=== PATIENT | male | born 2000 | race Caucasian/White ===

== ENCOUNTER 2022-08-30 09:43 | Emergency (ER) | payer OTHER, SELFPAY ==
[2022-08-30 09:49] VITALS: BP 118/70; PULSE 109; RESP 16; TEMP 36.4; O2SAT 99; BMI 25.1
--- NOTE | 2022-08-30 09:53 | ED.GENADUL1 ---
HPI - General Adult General Chief complaint: Neck Pain/Injury Stated complaint: JAW PAIN NECK PAIN Time Seen by Provider: 08/30/22 09:53 Source: patient Mode of arrival: walk-in Limitations: no limitations History of Present Illness HPI narrative: Patient presents to emergency department complaining of upper back and neck pain. Patient states last week he was having 4 fillings and he was sitting in a dentist chair neck and the for over an hour. Since then he has had discomfort to his upper back the low back muscles. He has taken [id number] medications without the review relief. He has applied heat without any relief. Patient denies any sore throat, difficulty swallowing. Pain is worse when he raises his arms or when he moves his neck from wuqh-ns-bona or extends or flexes his neck. He denies any paresthesias, or weakness. He states he takes gabapentin for jaw pain that is prescribed by his doctor. Patient denies any fever, chills, or cough. Denies any chest pain, shortness of breath. He denies any jaw pain or swelling, difficulty speaking, or swallowing. He is not on any antibiotics. Related Data Home Medications Medication Instructions Recorded Confirmed aripiprazole 5 mg tablet mg 08/30/22 duloxetine 30 mg capsule,delayed mg PO 08/30/22 release duloxetine 60 mg capsule,delayed mg PO 08/30/22 release gabapentin 300 mg capsule mg 08/30/22 Previous Rx's Medication Instructions Recorded cyclobenzaprine 10 mg tablet 10 mg PO TID PRN muscle spasm #10 08/30/22 tabs Allergies Allergy/AdvReac Type Severity Reaction Status Date / Time No Known Drug Allergies Allergy Verified 08/30/22 09:53 Review of Systems ROS Status of ROS 10 or more systems reviewed and unremarkable except as noted in history and below [facility] Social History Smoking status: Never smoker Exam Narrative Exam Narrative: Nurses notes and vital signs reviewed and patient is not hypoxic. General: Nontoxic, Well-appearing and in no apparent distress. Skin: Warm, dry, no pallor noted. No Rash Head: Normocephalic, atraumatic. Neck: Supple, non-tender. Eye: Pupils are equal, round and EOMI. No scleral icterus. Ears, Nose, Mouth, and Throat: TM clear, no posterior oropharynx erythema or nasal mucosal hypertrophy, uvula is mid-line Oral mucosa is moist, Trismus, no tongue elevation, no signs of dental or facial abscesses noted. Cardiovascular: Regular Rate and Rhythm without murmur, gallop or rub. Respiratory: No accessory muscle use or respiratory distress. Lungs are clear to auscultation, no wheezing, rales or rhonchi Chest Wall: no tenderness Back: No midline thoracic or lumbar vertebral tenderness. Paraspinal muscle tenderness and spasms noted to the upper thorax over the trapezius muscle. No erythema, no signs of trauma, or infection. And has full range of motion to the neck. No CVA tenderness Musculoskeletal: normal ROM, no calf or popliteal tenderness, no lower extremity edema/swelling GI: Abdomen is soft, non-distended. Normal bowel sounds. No masses appreciated. No tenderness to palpation. No rebound, guarding, or rigidity noted. Neurological: A&O x4. No cranial nerve dysfunction observed. No truncal ataxia. Moves all extremities. Sensation intact. Psychiatric: Cooperative and interactive. Normal mood and affect. Constitutional Vital Signs - 24 hr 08/30/22 09:49 Temperature 97.6 F Pulse Rate [Monitor] 109 H Respiratory Rate 16 Blood Pressure [Left Arm] 118/70 Pulse Oximetry 99 Oxygen Delivery Method Room Air Course Vital Signs Vital signs: Vital Signs Temperature 97.6 F 08/30/22 09:49 Pulse Rate 109 H 08/30/22 09:49 Respiratory Rate 16 08/30/22 09:49 Blood Pressure 118/70 08/30/22 09:49 Pulse Oximetry 99 08/30/22 09:49 Oxygen Delivery Method Room Air 08/30/22 09:49 Temperature 97.6 F 08/30/22 09:49 Pulse Rate 109 H 08/30/22 09:49 Respiratory Rate 16 08/30/22 09:49 Blood Pressure 118/70 08/30/22 09:49 Pulse Oximetry 99 08/30/22 09:49 Oxygen Delivery Method Room Air 08/30/22 09:49 Medical Decision Making MDM Narrative Medical decision making narrative: Discussed with patient givenn an injection of Norflex which he states he prefers pills. We'll give a prescription for Flexeril. He is to follow up with primary care doctor. At this time the patient is without objective evidence of an acute process requiring hospitalization or inpatient management. The patient has remained hemodynamically stable. No additional indication for emergent studies at this time. I answered all questions. Discussed discharge instructions including standard anticipatory guidance and what should prompt a return to the emergency department, including if they get worse are not getting better or develops any new or concerning symptoms. I've given them specific time frame in which to follow-up, and who to follow-up with. The patient demonstrates understanding. Patient is nontoxic and stable for discharge with outpatient follow-up. This note was created with the assistance of a speech recognition program. Although the intention is to generate documents that actually reflects the content of the visit, no guarantees can be provided that every mistake has been identified and corrected by editing. Lab Data Lab results reviewed: Yes I reviewed the patient's lab results Discharge Plan Discharge Chief Complaint: Neck Pain/Injury Clinical Impression: Muscle spasms of neck Patient Disposition: Home, Self-Care Time of Disposition Decision: 10:14 Condition: Good Mode of Transportation: Private Vehicle Prescriptions / Home Meds: New cyclobenzaprine 10 mg tablet 10 mg PO TID PRN (Reason: muscle spasm) Qty: 10 0RF No Action gabapentin 300 mg capsule aripiprazole 5 mg tablet duloxetine 30 mg capsule,delayed release(DR/EC) PO duloxetine 60 mg capsule,delayed release(DR/EC) PO Instructions: Muscle Spasm (ED) Stand Alone Forms: Portal Instructions Referrals: KENNEDY ELDER MD [Primary Care Provider] - 1 week
[2022-08-30 10:24] VITALS: BP 112/80; PULSE 98; RESP 16; TEMP 36.8; O2SAT 99
== END 2022-08-30 10:26 | disposition home or self-care (01) ==
PROVIDERS: Emergency Provider Emergency Medicine; PCP Nurse Practitioner Primary Care
DX: M62.838 Other muscle spasm (principal)
CPT/HCPCS: 99282

== ENCOUNTER 2022-09-28 09:39 | Emergency (ER) | payer OTHER, SELFPAY ==
[2022-09-28 09:43] VITALS: BP 120/60; PULSE 125; RESP 18; TEMP 36.8; O2SAT 100; BMI 24.3
--- NOTE | 2022-09-28 09:45 | ED_ITS ---
HPI - General Adult General Chief complaint: Psychiatric Symptoms Stated complaint: SUICIDAL THOUGHTS Time Seen by Provider: 09/28/22 09:45 History of Present Illness HPI narrative: Patient's this emergency department complaining of suicidal ideation. Patient states he is feeling like he wants to go buy a gun and blow his brains out. He states before he does that he will also go and shoot other people including the dentist that did his dental extraction. Does not need this dentist. He states he is sick and tired of dealing with dental pain and jaw pain. He's had this patient's ongoing for 5 years and the only thing that helps is his father's opioids and the Neurontin. he states he has not had any of the narcotics or gabapentin for the last 5 days. He has a history of depression with previous psychiatric admissions, the last one being one month ago to [address] [place] [address]. pt states he will kill himself by the time he turns 23 because he cannot deal with the pain. pt states he sees a therapist at [facility] as an outpatient. Patient states he has been taking his psychiatric medications and he is also chronic psychedelics which worked well but have not worked because he is taking antidepressants. admits to smoking marijuana. Denies any other drug use. Denies any alcohol abuse. Does not have any other somatic complaints. He denies any sore throat, throat swelling. He denies any fever, chills, or cough. He denies any upper respiratory infection symptoms. He denies any ear pain or headache. Denies any nausea, vomiting, diarrhea, constipation, abdominal pain. Denies any flank pain, hematuria, dysuria. Denies any trauma. denies Visual or auditory hallucinations. Related Data Home Medications Medication Instructions Recorded Confirmed aripiprazole 5 mg tablet 5 mg PO .at bedtime 08/30/22 09/28/22 duloxetine 60 mg capsule,delayed 60 mg PO QAM 08/30/22 09/28/22 release gabapentin 300 mg capsule 300 mg PO DAILY 08/30/22 09/28/22 lamotrigine 25 mg tablet 50 mg PO QAM 09/28/22 09/28/22 mirtazapine 7.5 mg tablet 7.5 mg PO .at night 09/28/22 09/28/22 Allergies Allergy/AdvReac Type Severity Reaction Status Date / Time No Known Drug Allergies Allergy Verified 09/28/22 09:46 Review of Systems ROS Status of ROS 10 or more systems reviewed and unremarkable except as noted in history and below [facility] Medical History (Updated 09/28/22 @ 13:26 by Gabby Orantes MD) Social History Smoking status: Never smoker Exam Narrative Exam Narrative: Nurses notes and vital signs reviewed and patient is not hypoxic. General: Nontoxic, Well-appearing and in no apparent distress. Skin: Warm, dry, no pallor noted. No Rash Head: Normocephalic, atraumatic. Neck: Supple, non-tender. Eye: Pupils are equal, round and EOMI. No scleral icterus. Ears, Nose, Mouth, and Throat: TM clear, no posterior oropharynx erythema or nasal mucosal hypertrophy, uvula is mid-line Oral mucosa is moist Cardiovascular: regular tachycardia without murmur, gallop or rub. Respiratory: No accessory muscle use or respiratory distress. Lungs are clear to auscultation, no wheezing, rales or rhonchi Chest Wall: no tenderness Back: No midline thoracic or lumbar vertebral tenderness. No CVA tenderness Musculoskeletal: normal ROM, no calf or popliteal tenderness, no lower extremity edema/swelling GI: Abdomen is soft, non-distended. Normal bowel sounds. No masses appreciated. No tenderness to palpation. No rebound, guarding, or rigidity noted. Neurological: A&O x4. No cranial nerve dysfunction observed. No truncal ataxia. Moves all extremities. Sensation intact. Psychiatric: Cooperative, edgy, Anxious, active suicide and homicide ideation with the plan. Constitutional Vital Signs, click to edit/add: Last Vital Signs Temp 98.2 F 09/28/22 14:01 Pulse 98 H 09/28/22 14:01 Resp 20 09/28/22 14:01 BP 121/66 H 09/28/22 14:01 Pulse Ox 98 09/28/22 14:01 O2 Del Method Room Air 09/28/22 14:01 Course Vital Signs Vital signs: Vital Signs Temperature 98.3 F 09/28/22 09:43 Pulse Rate 125 H 09/28/22 09:43 Respiratory Rate 18 09/28/22 09:43 Blood Pressure 120/60 H 09/28/22 09:43 Pulse Oximetry 100 09/28/22 09:43 Oxygen Delivery Method Room Air 09/28/22 09:43 Temperature 98.2 F 09/28/22 14:01 Pulse Rate 98 H 09/28/22 14:01 Respiratory Rate 20 09/28/22 14:01 Blood Pressure 121/66 H 09/28/22 14:01 Pulse Oximetry 98 09/28/22 14:01 Oxygen Delivery Method Room Air 09/28/22 14:01 Medical Decision Making MDM Narrative Medical decision making narrative: Patient will be cleared medically for psychiatric evaluation and treatment by [facility]. pt given 1 mg of Ativan by mouth since he does not like injec tions.The patient is medically clear for mental health admission. Patient will was evaluated by [facility] who has pink slip the patient and will transfer to [address] Patient was accepted by Dr. Beaulieu. Medical Records Medical records reviewed: Yes I reviewed the patient's medical records Lab Data Lab results reviewed: Yes I reviewed the patient's lab results Labs: Lab Results 09/28/22 09/28/22 Range/Units 10:10 10:38 WBC 6.0 (4.0-11.0) 10^3/uL RBC 5.54 (4.70-6.10) 10^6/uL Hgb 16.1 (14.0-18.0) g/dL Hct 47.0 (42.0-54.0) % MCV 84.8 (80.0-94.0) fL MCH 29.1 (25.9-34.0) pg MCHC 34.3 (29.9-35.2) g/dL RDW 12.7 (11.0-15.0) % Plt Count 234 (150-450) 10^3/uL MPV 10.3 (9.5-13.5) fL Neut % (Auto) 72.8 (43.0-75.0) % Lymph % (Auto) 17.8 L (20.5-60.0) % [place] % (Auto) 6.4 (1.7-12.0) % Eos % (Auto) 2.3 (0.9-7.0) % Baso % (Auto) 0.5 (0.2-2.0) % Neut # (Auto) 4.4 (1.4-6.5) 10^3/uL Lymph # (Auto) 1.1 L (1.2-3.8) 10^3/uL [place] # (Auto) 0.4 (0.3-0.8) 10^3/uL Eos # (Auto) 0.1 (0.0-0.7) 10^3/uL Baso # (Auto) 0.0 (0.0-0.1) 10^3/uL Abs Immat Gran (auto) 0.01 (0.00-0.03) 10^3/uL Imm/Tot Granulo (auto) 0.2 (0.0-0.5) % Sodium 138 (136-145) mmol/L Potassium 4.2 (3.5-5.1) mmol/L Chloride 104 (98-107) mmol/L Carbon Dioxide 28.8 (21.0-32.0) mmol/L Anion Gap 9.4 BUN 14.0 (6.4-19.3) mg/dL Creatinine 0.88 (0.70-1.30) mg/dL Est GFR ( Amer) >60 (>=60) Est GFR (Non-Af Amer) >60 (>=60) BUN/Creatinine Ratio 15.9 Glucose 107 H (74-106) mg/dL Calcium 9.3 (8.5-10.1) mg/dL Salicylates <2.8 (<=19.9) mg/dL Urine Opiates Screen Negative (NEGATIVE) Ur Buprenorphine Scrn Negative (NEGATIVE) Ur Oxycodone Screen Negative (NEGATIVE) Urine Methadone Screen Negative (NEGATIVE) Ur Propoxyphene Screen Negative (NEGATIVE) Acetaminophen <2.0 L (10.0-30.0) ug/mL Ur Barbiturates Screen Negative (NEGATIVE) U Tricyclic Antidepress Negative (NEGATIVE) Ur Phencyclidine Scrn Negative (NEGATIVE) Ur Amphetamines Screen Negative (NEGATIVE) U Methamphetamines Scrn Negative (NEGATIVE) U Benzodiazepines Scrn Negative (NEGATIVE) Urine Cocaine Screen Negative (NEGATIVE) U Cannabinoids Screen Positive A (NEGATIVE) Ethanol Quant <3 mg/dL ECG Data Attestation: I personally reviewed and interpreted this ECG as follows: Interpretation: Sinus rhythm of 82 bpm. No acute ischemic changes. Normal axis Discharge Plan Discharge Chief Complaint: Psychiatric Symptoms Clinical Impression: Suicidal ideation, Depression, Homicidal ideation Patient Disposition: [facility] Time of Disposition Decision: 13:26 Discharge Location: [facility] Discharge location: [facility] Condition: Good Mode of Transportation: Mental Health Car
--- NOTE | 2022-09-28 10:01 | PC.NURSE ---
pt states he has been dealing with pain in his jaw and neck for the past 5 years. pt states narcotics and Neurontin are the only medications that help his pain. pt states he will kill himself by the time he turns 23 because he cannot deal with the pain. pt states he sees a therapist at [facility] as an outpatient. pt also states that it is cheaper to by a pistal and shoot people and then shoot himself than it is to go to the dentist to get his teeth fixed.
--- NOTE | 2022-09-28 10:04 | ECG_ITS ---
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
[2022-09-28] MEDS: LORAZEPAM 1 MG TABLET PO (10:16)
[2022-09-28 10:20] LABS: Basophils Percent Auto 0.5 % (0.2-2.0); Eosinophils Absolute Auto 0.1 10^3/uL (0.0-0.7); Eosinophils Percent Auto 2.3 % (0.9-7.0); Hemoglobin 16.1 g/dL (14.0-18.0); Immature Granulocytes Abs Auto 0.01 10^3/uL (0.00-0.03); Immature Granulocytes Pct Auto 0.2 % (0.0-0.5); Lymphocytes Absolute Auto 1.1 10^3/uL (1.2-3.8); Lymphocytes Percent Auto 17.8 % (20.5-60.0); Mean Corpuscular HGB Conc 34.3 g/dL (29.9-35.2); Mean Corpuscular Hemoglobin 29.1 pg (25.9-34.0); Mean Corpuscular Volume 84.8 fL (80.0-94.0); Mean Platelet Volume 10.3 fL (9.5-13.5); Monocytes Absolute Auto 0.4 10^3/uL (0.3-0.8); Monocytes Percent Auto 6.4 % (1.7-12.0); Neutrophils Absolute Auto 4.4 10^3/uL (1.4-6.5); Neutrophils Percent Auto 72.8 % (43.0-75.0); Platelet Count 234 10^3/uL (150-450); Red Blood Count 5.54 10^6/uL (4.70-6.10); Red Cell Distribution Width 12.7 % (11.0-15.0)
[2022-09-28 10:30] LABS: Salicylate <2.8 mg/dL (<=19.9)
[2022-09-28 10:35] LABS: Anion Gap 9.4; BUN Creatinine Ratio 15.9; Calcium 9.3 mg/dL (8.5-10.1); Carbon Dioxide 28.8 mmol/L (21.0-32.0); Chloride 104 mmol/L (98-107); Estimated GFR (African America >60 (>=60); Estimated GFR (Non-African Ame >60 (>=60); Glucose 107 mg/dL (74-106); Potassium 4.2 mmol/L (3.5-5.1); Sodium 138 mmol/L (136-145)
[2022-09-28 11:06] LABS: Acetaminophen <2.0 ug/mL (10.0-30.0); Ethanol <3 mg/dL
[2022-09-28 11:38] VITALS: BP 126/79; PULSE 79; RESP 16; O2SAT 99
[2022-09-28 11:46] LABS: Amphetamine Screen Urine NEGATIVE (NEGATIVE); Barbiturates Screen Urine NEGATIVE (NEGATIVE); Benzodiazepines Screen Urine NEGATIVE (NEGATIVE); Buprenorphine Screen Urine NEGATIVE (NEGATIVE); Cannabinoid Screen Urine POSITIVE (NEGATIVE); Cocaine Screen Urine NEGATIVE (NEGATIVE); Methadone Screen Urine NEGATIVE (NEGATIVE); Methamphetamines Screen Urine NEGATIVE (NEGATIVE); Opiate Screen Urine NEGATIVE (NEGATIVE); Oxycodone Screen Urine NEGATIVE (NEGATIVE); Phencyclidine Screen Urine NEGATIVE (NEGATIVE); Tricyclic Antidepressant Urine NEGATIVE (NEGATIVE)
[2022-09-28 14:01] VITALS: BP 121/66; PULSE 98; RESP 20; TEMP 36.8; O2SAT 98
[2022-09-28 14:37] VITALS: BP 121/6; PULSE 85; TEMP 36.8; O2SAT 98
== END 2022-09-28 14:30 ==
PROVIDERS: Emergency Provider Emergency Medicine; PCP Nurse Practitioner Primary Care
DX: R45.851 Suicidal ideations (principal); R45.850 Homicidal ideations; F32.A Depression, unspecified; Z79.899 Other long term (current) drug therapy; F12.90 Cannabis use, unspecified, uncomplicated
CPT/HCPCS: 36415; 80048; 80179; 80307; 80320; 80329; 85025; 93005; 99285

== ENCOUNTER 2022-11-08 12:15 | Emergency (ER) | payer OTHER, SELFPAY ==
[2022-11-08 12:26] VITALS: BP 108/68; PULSE 88; RESP 14; TEMP 36.7; O2SAT 100
--- NOTE | 2022-11-08 12:39 | ED.URI1 ---
HPI - URI/Sore Throat General Chief Complaint: Upper Respiratory Infection Stated Complaint: HEADACHE/SORE THROAT/CONGESTION Time Seen by Provider: 11/08/22 12:22 Source: patient History of Present Illness HPI Narrative: patient had cough symptoms last week. No fever or chills. No GI or symptoms. He is better now and wants a return to works slip. 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 He still has an occasional cough but the nasal congestion and ear fullness have resolved. Related Data Home Medications Medication Instructions Recorded Confirmed aripiprazole 5 mg tablet 5 mg PO .at bedtime 08/30/22 09/28/22 duloxetine 60 mg capsule,delayed 60 mg PO QAM 08/30/22 09/28/22 release gabapentin 300 mg capsule 300 mg PO DAILY 08/30/22 09/28/22 lamotrigine 25 mg tablet 50 mg PO QAM 09/28/22 09/28/22 mirtazapine 7.5 mg tablet 7.5 mg PO .at night 09/28/22 09/28/22 Allergies Allergy/AdvReac Type Severity Reaction Status Date / Time No Known Drug Allergies Allergy Verified 09/28/22 09:46 [facility] Medical History (Updated 11/08/22 @ 13:12 by Lalo Naqvi) Social History Smoking status: Never smoker Exam Narrative Exam Narrative: Nurses notes and vital signs reviewed and patient is not hypoxic. afebrile General: Well-appearing and in no apparent distress. Skin: Warm, dry, no pallor noted. No rash. Head: Normocephalic, atraumatic. Neck: Supple, non-tender. no cervical lymphadenopathy. No meningismus. Eye: Pupils are equal, round and EOMI. No scleral icterus. Ears, Nose, Mouth, and Throat: TM are clear, no nasal mucosal hypertrophy. Oral mucosa is moist, no posterior oropharynx erythema, uvula is mid-line Cardiovascular: Regular Rate and Rhythm without murmur, gallop or rub. Respiratory: No accessory muscle use or respiratory distress. Lungs are clear to auscultation, no wheezing, rales or rhonchi Musculoskeletal: normal ROM Neurological: A&O x4. No cranial nerve dysfunction observed. No truncal ataxia. Moves all extremities. Sensation intact. Psychiatric: Cooperative and interactive. Normal mood and affect. Constitutional Vital Signs, click to edit/add: Last Vital Signs Temp 98.1 F 11/08/22 12:26 Pulse 88 11/08/22 12:26 Resp 14 11/08/22 12:26 BP 108/68 11/08/22 12:26 Pulse Ox 100 11/08/22 12:26 O2 Del Method Room Air 11/08/22 12:26 Course Vital Signs Vital signs: Vital Signs Temperature 98.1 F 11/08/22 12:26 Pulse Rate 88 11/08/22 12:26 Respiratory Rate 14 11/08/22 12:26 Blood Pressure 108/68 11/08/22 12:26 Pulse Oximetry 100 11/08/22 12:26 Oxygen Delivery Method Room Air 11/08/22 12:26 Temperature 98.1 F 11/08/22 12:26 Pulse Rate 88 11/08/22 12:26 Respiratory Rate 14 11/08/22 12:26 Blood Pressure 108/68 11/08/22 12:26 Pulse Oximetry 100 11/08/22 12:26 Oxygen Delivery Method Room Air 11/08/22 12:26 MDM - URI/Sore Throat MDM Narrative Medical decision making narrative: patient is minimally symptomatic. No cough during the interview or examination. I do not see any sign of bacterial infection at this time. The patient was discharged home with a work note to return tomorrow. Discharge Plan Discharge Chief Complaint: Upper Respiratory Infection Clinical Impression: Upper respiratory infection Patient Disposition: Home, Self-Care Time of Disposition Decision: 13:11 Prescriptions / Home Meds: No Action gabapentin 300 mg capsule 300 mg PO DAILY aripiprazole 5 mg tablet 5 mg PO .at bedtime duloxetine 60 mg capsule,delayed release(DR/EC) 60 mg PO QAM lamotrigine 25 mg tablet 50 mg PO QAM mirtazapine 7.5 mg tablet 7.5 mg PO .at night Instructions: Upper Respiratory Infection (ED) Stand Alone Forms: Portal Instructions Referrals: KENNEDY ELDER APRN [Primary Care Provider] - 1 week
== END 2022-11-08 13:22 | disposition home or self-care (01) ==
PROVIDERS: Emergency Provider Emergency Medicine; PCP Nurse Practitioner Primary Care
DX: J06.9 Acute upper respiratory infection, unspecified (principal); Z79.899 Other long term (current) drug therapy
CPT/HCPCS: 99282

== ENCOUNTER 2023-03-09 03:58 | Emergency (ER) | payer OTHER, SELFPAY ==
[2023-03-09 04:01] VITALS: BP 136/86; PULSE 78; RESP 16; TEMP 36.7; O2SAT 100; BMI 21.3
[2023-03-09 04:02] VITALS: PULSE 77
--- NOTE | 2023-03-09 04:03 | ECG_ITS ---
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
--- NOTE | 2023-03-09 04:04 | ED_ITS ---
HPI - Psych General Chief Complaint: Psychiatric Symptoms Stated Complaint: MENTAL STATUS Time Seen by Provider: 03/09/23 04:03 History of Present Illness HPI Narrative: patient called [address] to bring him from his home to [facility] to be admitted for psychiatric reasons - thoughts of shooting himself and shooting other people. Long history of depression and psychiatric disease, including prior thoughts of suicide. He does not take any medications - stopped taking anti-depressant in September, around the time of his last hospitalization, he told us. He denied any recent injury or illness. Denied recent alcohol or drug use. Related Data Home Medications Medication Instructions Recorded Confirmed aripiprazole 5 mg tablet 5 mg PO .at bedtime 08/30/22 03/09/23 duloxetine 60 mg capsule,delayed 60 mg PO QAM 08/30/22 03/09/23 release gabapentin 300 mg capsule 300 mg PO DAILY 08/30/22 03/09/23 lamotrigine 25 mg tablet 50 mg PO QAM 09/28/22 03/09/23 mirtazapine 7.5 mg tablet 7.5 mg PO .at night 09/28/22 03/09/23 Allergies Allergy/AdvReac Type Severity Reaction Status Date / Time No Known Drug Allergies Allergy Verified 03/09/23 04:08 [facility] Medical History (Updated 03/09/23 @ 04:09 by Lalo Naqvi) Depression ?F32.A - Depression, unspecified (ICD-10) Social History Smoking status: Current every day smoker Exam Narrative Exam Narrative: Nurses notes and vital signs reviewed and patient is not hypoxic. afebrile General: Well-appearing and in no apparent distress. Skin: Warm, dry, no pallor noted. No rash. Head: Normocephalic, atraumatic. Eye: Pupils are equal, round and EOMI. No scleral icterus. Ears, Nose, Mouth, and Throat: Oral mucosa is moist Cardiovascular: Regular Rate and Rhythm without murmur, gallop or rub. Respiratory: No accessory muscle use or respiratory distress. Lungs are clear to auscultation, no wheezing, rales or rhonchi. Musculoskeletal: normal ROM, no calf or popliteal tenderness, no lower extremity edema/swelling GI: Abdomen is soft, non-distended. Normal bowel sounds. No tenderness to palpation. No rebound, guarding, or rigidity noted. Neurological: A&O x4. No cranial nerve dysfunction observed. No truncal ataxia. Moves all extremities. Sensation intact. Psychiatric: Cooperative and interactive. Flat affect. Constitutional Vital Signs, click to edit/add: Last Vital Signs Temp 98.1 F 03/09/23 04:01 Pulse 64 03/09/23 06:30 Resp 16 03/09/23 06:30 BP 131/71 03/09/23 06:30 Pulse Ox 100 03/09/23 06:30 O2 Del Method Room Air 03/09/23 06:30 Course Vital Signs Vital signs: Vital Signs Temperature 98.1 F 03/09/23 04:01 Pulse Rate 78 03/09/23 04:01 Respiratory Rate 16 03/09/23 04:01 Blood Pressure 136/86 03/09/23 04:01 Pulse Oximetry 100 03/09/23 04:01 Oxygen Delivery Method Room Air 03/09/23 04:01 Temperature 98.1 F 03/09/23 04:01 Pulse Rate 64 03/09/23 06:30 Respiratory Rate 16 03/09/23 06:30 Blood Pressure 131/71 03/09/23 06:30 Pulse Oximetry 100 03/09/23 06:30 Oxygen Delivery Method Room Air 03/09/23 06:30 MDM - Psych MDM Narrative Medical decision making narrative: suicide precautions initiated and I completed a pink slip. Blood and urine ordered to be sent for testing for medical clearance. EKG reviewed by me - see below. The labs were normal with negative ethanol, salicylate and acetaminophen. Yao jhaveri medically cleared for psychiatric evaluation. Call placed to [facility] to discuss transfer to their facility for psychiatric admission. Paperwork faxed to them in order to get approval from the psychiatrist to admit. @[phone] we got acceptance for admission and transfer to [address] for psychiatric admission. Call placed to [facility] to arrange transportation. Lab Data Attestation: I reviewed the patient's lab results. Labs: Lab Results 03/09/23 Range/Units 04:11 WBC 7.3 (4.0-11.0) 10^3/uL RBC 5.27 (4.70-6.10) 10^6/uL Hgb 15.2 (14.0-18.0) g/dL Hct 45.6 (42.0-54.0) % MCV 86.5 (80.0-94.0) fL MCH 28.8 (25.9-34.0) pg MCHC 33.3 (29.9-35.2) g/dL RDW 12.6 (11.0-15.0) % Plt Count 218 (150-450) 10^3/uL MPV 10.6 (9.5-13.5) fL Neut % (Auto) 64.8 (43.0-75.0) % Lymph % (Auto) 25.7 (20.5-60.0) % Ellis % (Auto) 7.4 (1.7-12.0) % Eos % (Auto) 1.4 (0.9-7.0) % Baso % (Auto) 0.4 (0.2-2.0) % Neut # (Auto) 4.7 (1.4-6.5) 10^3/uL Lymph # (Auto) 1.9 (1.2-3.8) 10^3/uL Ellis # (Auto) 0.5 (0.3-0.8) 10^3/uL Eos # (Auto) 0.1 (0.0-0.7) 10^3/uL Baso # (Auto) 0.0 (0.0-0.1) 10^3/uL Abs Immat Gran (auto) 0.02 (0.00-0.03) 10^3/uL Imm/Tot Granulo (auto) 0.3 (0.0-0.5) % Sodium 139 (136-145) mmol/L Potassium 3.6 (3.5-5.1) mmol/L Chloride 102 (98-107) mmol/L Carbon Dioxide 31.4 (21.0-32.0) mmol/L Anion Gap 9.2 BUN 14.0 (7.0-18.0) mg/dL Creatinine 0.87 (0.70-1.30) mg/dL Est GFR ( Amer) >60 (>=60) Est GFR (Non-Af Amer) >60 (>=60) BUN/Creatinine Ratio 16.1 Glucose 89 (74-106) mg/dL Calcium 9.5 (8.5-10.1) mg/dL Salicylates <2.8 (<=19.9) mg/dL Urine Opiates Screen Negative (NEGATIVE) Ur Buprenorphine Scrn Negative (NEGATIVE) Ur Oxycodone Screen Negative (NEGATIVE) Urine Methadone Screen Negative (NEGATIVE) Acetaminophen <2.0 L (10.0-30.0) ug/mL Ur Barbiturates Screen Negative (NEGATIVE) U Tricyclic Antidepress Negative (NEGATIVE) Ur Phencyclidine Scrn Negative (NEGATIVE) Ur Amphetamines Screen Negative (NEGATIVE) U Methamphetamines Scrn Negative (NEGATIVE) U Benzodiazepines Scrn Negative (NEGATIVE) Urine Cocaine Screen Negative (NEGATIVE) U Cannabinoids Screen Positive A (NEGATIVE) Ethanol Quant <3 mg/dL ECG Data Attestation: I personally reviewed and interpreted this ECG as follows: Interpretation: EKG interpretation: Emergency Department physician interpretation. Normal sinus rhythm at _bpm. Normal axis, normal intervals and no ST segment elevation or depression. normal ekg. Discharge Plan Discharge Chief Complaint: Psychiatric Symptoms Clinical Impression: Suicidal ideation, Depression, Homicidal ideation Patient Disposition: [facility] Time of Disposition Decision: 05:12 Discharge Location: [place]
[2023-03-09 04:41] LABS: Basophils Percent Auto 0.4 % (0.2-2.0); Eosinophils Absolute Auto 0.1 10^3/uL (0.0-0.7); Eosinophils Percent Auto 1.4 % (0.9-7.0); Hematocrit 45.6 % (42.0-54.0); Hemoglobin 15.2 g/dL (14.0-18.0); Immature Granulocytes Abs Auto 0.02 10^3/uL (0.00-0.03); Immature Granulocytes Pct Auto 0.3 % (0.0-0.5); Lymphocytes Absolute Auto 1.9 10^3/uL (1.2-3.8); Lymphocytes Percent Auto 25.7 % (20.5-60.0); Mean Corpuscular HGB Conc 33.3 g/dL (29.9-35.2); Mean Corpuscular Hemoglobin 28.8 pg (25.9-34.0); Mean Corpuscular Volume 86.5 fL (80.0-94.0); Mean Platelet Volume 10.6 fL (9.5-13.5); Monocytes Absolute Auto 0.5 10^3/uL (0.3-0.8); Monocytes Percent Auto 7.4 % (1.7-12.0); Neutrophils Absolute Auto 4.7 10^3/uL (1.4-6.5); Neutrophils Percent Auto 64.8 % (43.0-75.0); Platelet Count 218 10^3/uL (150-450); Red Blood Count 5.27 10^6/uL (4.70-6.10); Red Cell Distribution Width 12.6 % (11.0-15.0); White Blood Count 7.3 10^3/uL (4.0-11.0)
[2023-03-09 04:48] LABS: Ethanol <3 mg/dL; Salicylate <2.8 mg/dL (<=19.9)
[2023-03-09 04:50] LABS: Acetaminophen <2.0 ug/mL (10.0-30.0)
--- NOTE | 2023-03-09 05:08 | PC.NURSE ---
1 alcira at [facility] called to admit patient under [place]. Talked to Elvira.
[2023-03-09 05:15] LABS: Amphetamine Screen Urine NEGATIVE (NEGATIVE); Barbiturates Screen Urine NEGATIVE (NEGATIVE); Benzodiazepines Screen Urine NEGATIVE (NEGATIVE); Buprenorphine Screen Urine NEGATIVE (NEGATIVE); Cannabinoid Screen Urine POSITIVE (NEGATIVE); Cocaine Screen Urine NEGATIVE (NEGATIVE); Methadone Screen Urine NEGATIVE (NEGATIVE); Methamphetamines Screen Urine NEGATIVE (NEGATIVE); Opiate Screen Urine NEGATIVE (NEGATIVE); Oxycodone Screen Urine NEGATIVE (NEGATIVE); Phencyclidine Screen Urine NEGATIVE (NEGATIVE); Tricyclic Antidepressant Urine NEGATIVE (NEGATIVE)
[2023-03-09 05:21] LABS: Anion Gap 9.2; BUN Creatinine Ratio 16.1; Calcium 9.5 mg/dL (8.5-10.1); Carbon Dioxide 31.4 mmol/L (21.0-32.0); Chloride 102 mmol/L (98-107); Estimated GFR (African America >60 (>=60); Estimated GFR (Non-African Ame >60 (>=60); Glucose 89 mg/dL (74-106); Potassium 3.6 mmol/L (3.5-5.1); Sodium 139 mmol/L (136-145)
--- NOTE | 2023-03-09 05:37 | PC.NURSE ---
Labs,Ekg and pink slip faxed to [facility].
--- NOTE | 2023-03-09 06:13 | PC.NURSE ---
[address] Still has not been able to get a hold of the will try again.
[2023-03-09 06:30] VITALS: BP 131/71; PULSE 64; RESP 16; O2SAT 100
--- NOTE | 2023-03-09 06:36 | PC.NURSE ---
Patient accepted to [address] [place] [address].
--- NOTE | 2023-03-09 06:52 | PC.NURSE ---
Report called to [facility] at [facility]. She would like to be called if any changes and when transport leaves with patient.
[2023-03-09 08:34] VITALS: BP 127/78; PULSE 89; RESP 16; O2SAT 100
== END 2023-03-09 08:36 ==
PROVIDERS: Emergency Provider Emergency Medicine; PCP Nurse Practitioner Primary Care
DX: R45.851 Suicidal ideations (principal); R45.850 Homicidal ideations; F32.A Depression, unspecified; F17.210 Nicotine dependence, cigarettes, uncomplicated; Z79.899 Other long term (current) drug therapy
CPT/HCPCS: 36415; 80048; 80179; 80307; 80320; 80329; 85025; 93005; 99285

== ENCOUNTER 2023-05-30 11:17 | Outpatient (OUT) | payer OTHER, SELFPAY ==
--- OUTSIDE RECORDS SUMMARY | 2023-05-30 11:40 | XMS_ITS | CCD ---
Author Name Unknown Address [address] [place] [address] Organization [facility] Care Team Providers Care Photo Lab Technician Name Role Phone Juan Madrigal Primary Care Physician [phone] Chu Muñoz Attending Unavailable Chu Muñoz Admitting Unavailable Unavailable Primary Care Provider Unavailying MCKEON ., JOSÉ MANUEL JAIN Consulting Unavailabl e SANTY, DR VISHUN Cervantes Admitting Unavailabl e SHAMMO, DARIN Primary Care Unavailable SANTY, DR VISHNU Cervantes Attending Unavailabl e FABIOLA, PORTER Admitting Unavailable FABIOLA, PORTER Attending Unavailable FABIOLA, PORTER Consulting Unavailable KAITLIN, DR RIVERA Primary Care Unavailable NAGI ., ANJEL Consulting Unavailable SHAMMO, DARIN Primary Care Unavailable SANTY, DR VISHNU Cervantes Attending Unavailabl e SANTY, DR VISHNU Cervantes Consulting Unavailabl e SANTY, DR VISHNU Cervantes Admitting Unavailabl e HOUSE, DR RIVERA Primary Care Unavailable SHAMMO, DARIN Admitting Unavailable SHAMMO, DARIN Attending Unavailable SHAMMO, DARIN Consulting Unavailable SHAMMO, DARIN Primary Care Unavailable ZIEBER, DR SANKET Mcgovern Consulting Unavailable SHAMMO, DARIN Admitting Unavailable SHAMMO, DARIN Attending Unavailable SHAMMO, DARIN Consulting Unavailable Vasilyeva DDS, Erum Unavailable [phone] Ashley ALVAREZ MD, Cherise Unavailable Shammo, INSULATION BOARD COATER OPERATOR-BC Darin T Primary Care Provider [phone] MD Tana Ca Admit Provider MD Tana Ca Attending Provider Shammo, INSULATION BOARD COATER OPERATOR-BC Darin T Primary Care Provider DO Christiano Phelps Emergency Provider [phone] MD Timur Shubham Admit Provider [phone] MD Mariana Dingmi Attending Provider MD Tana Ca Attending Provider Messia DDS, Erum Unavailable Rangwala DDS, Parveez Unavailable Shammo, INSULATION BOARD COATER OPERATOR- Darin T Primary Care Provider [phone] MD Mariana Dingmi Admit Provider MD Shubham Ding Attending Provider [phone] Shubham Ding Admitting Unavailable Shammo, Darin T Primary Care Unavailable Lanny, Brandon Attending Unavailab le Shammo, Darin T Primary Care Unavailable Tesfaye Cahman Attending Unavailab le Lanny, Brandon Admitting Unavailab le Shammo, Darin T Primary Care Unavailable Lanny, Brandon Attending Unavailab le Lanny, Brandon Admitting Unavailab le Timur, Shubham Attending Unavailable Timur, Shubham Admitting Unavailable Shammo, Darin T Primary Care Unavailable Timur, Shubham Attending Unavailable Timur, Shubham Admitting Unavailable Shammo, Darin T Primary Care Unavailable PROVIDER, UNKNOWN Admitting Unavailable PROVIDER, UNKNOWN Attending Unavailable PROVIDER, UNKNOWN Admitting Unavailable PROVIDER, UNKNOWN Attending Unavailable PROVIDER, UNKNOWN Admitting Unavailable PROVIDER, UNKNOWN Attending Unavailable PROVIDER, UNKNOWN Admitting Unavailable PROVIDER, UNKNOWN Attending Unavailable PROVIDER, UNKNOWN Attending Unavailable PROVIDER, UNKNOWN Admitting Unavailable PROVIDER, UNKNOWN Attending Unavailable PROVIDER, UNKNOWN Admitting Unavailable PROVIDER, UNKNOWN Attending Unavailable PROVIDER, UNKNOWN Admitting Unavailable PROVIDER, UNKNOWN Admitting Unavailable VICKIE MCCORD Attending Unavailable PROVIDER, UNKNOWN Attending Unavailable PROVIDER, UNKNOWN Admitting Unavailable PROVIDER, UNKNOWN Admitting Unavailable VI SAMUEL Referring Unavailable PROVIDER, UNKNOWN Attending Unavailable PROVIDER, UNKNOWN Attending Unavailable PROVIDER, UNKNOWN Admitting Unavailable PROVIDER, UNKNOWN Attending Unavailable PROVIDER, UNKNOWN Admitting Unavailable PROVIDER, UNKNOWN Attending Unavailable PROVIDER, UNKNOWN Admitting Unavailable PROVIDER, UNKNOWN Attending Unavailable PROVIDER, UNKNOWN Admitting Unavailable PROVIDER, UNKNOWN Admitting Unavailable PROVIDER, UNKNOWN Attending Unavailable PROVIDER, UNKNOWN Admitting Unavailable PROVIDER, UNKNOWN Attending Unavailable PROVIDER, UNKNOWN Attending Unavailable PROVIDER, UNKNOWN Admitting Unavailable Medications Current Medications Medication Drug Class(es) Dates Sig (Normalized) Sig (Original) 24 hr buPROPion hydrochloride 150 mg extended release oral tablet (1 source) Aminoketone Start: 03-13-2023 take 150 mg by mouth once daily in the morning Bupropion Hcl Active 150 MG PO Every morning March 13, 2023 12:00am chlorhexidine gluconate 1.2 mg/ml mouthwash (3 sources) Start: 10-29-2022 End: 11-28-2022 take 15 mL by mouth twice daily chlorhexidine (Peridex) 0.12 % oral solution Indications: Poor oral hygiene Take 15 mL by mouth 2 times daily. 900 mL 0 10/29/2022 Active diclofenac sodium 0.01 mg/mg topical gel (14 sources) Nonsteroidal Anti-inflammatory Drug Start: 06-14-2022 diclofenac (VOLTAREN) 1 % GEL topical gel Indications: Arthralgia of right temporomandibular joint Apply 2 g topically 2 times daily as needed. 50 g 0 06/14/2022 Active sodium fluoride 0.011 mg/mg toothpaste (11 sources) Start: 07-16-2022 Sodium Fluoride (PreviDent 5000 Booster Plus) 1.1 % PSTE 5 g by Dental route daily. 100 mL 3 07/16/2022 Active Completed/Discontinued Medications Medication Drug Class(es) Dates Sig (Normalized) Sig (Original) ARIPiprazole 10 mg oral tablet (4 sources) Atypical Antipsychotic Start: 10-02-2022 End: 03-09-2023 take 10 mg by mouth once daily at bedtime Aripiprazole Discontinued 10 MG PO Daily at bedtime October 01, 2022 11:00pm March 09, 2023 9:30am Start: 08-03-2022 End: 2022 take 5 mg by mouth once daily at bedtime Aripiprazole Discontinued 5 MG PO Daily at bedtime August 02, 2022 11:00pm 2022 7:23am baclofen 10 mg oral tablet (10 sources) gamma-Aminobutyric Acid-ergic Agonist Start: 08-03-2022 End: 07-14-2023 take 10 mg by mouth twice daily Baclofen Discontinued 10 MG PO Twice daily August 02, 2022 11:00pm September 28, 2022 3:57pm Start: 06-14-2022 End: 07-14-2022 take 1 tablet by mouth three times daily baclofen (LIORESAL) 10 MG tablet Indications: Myalgia of mastication muscle , Myalgia of muscle of neck Take 1 Tablet by mouth 3 times daily. 90 Tablet 0 06/14/2022 Active cyclobenzaprine hydrochloride 10 mg oral tablet (14 sources) Muscle Relaxant Start: 05-22-2022 End: 06-21-2022 take 10 mg by mouth at bedtime Cyclobenzaprine Discontinued 10 MG PO Bedtime June 11, 2022 11:00pm June 12, 2022 7:12pm Start: 05-03-2021 End: 05-25-2021 take 10 mg by mouth twice daily Cyclobenzaprine Discontinued 10 MG PO Twice daily May 03, 2021 12:00am May 25, 2021 7:46am DULoxetine 60 mg delayed release oral capsule (5 sources) Serotonin and Norepinephrine Reuptake Inhibitor Start: 08-05-2022 End: 2022 take 60 mg by mouth once daily Duloxetine Discontinued 60 MG PO Daily 0 August 04, 2022 11:00pm 2022 7:23am Start: 06-13-2022 End: 08-05-2022 take 30 mg by mouth once daily Duloxetine Discontinued 30 MG PO Daily June 12, 2022 11:00pm August 05, 2022 9:11am escitalopram 5 mg oral tablet (2 sources) Serotonin Reuptake Inhibitor Start: 10-02-2022 End: 03-09-2023 take 5 mg by mouth once daily Escitalopram Oxalate Discontinued 5 MG PO Daily October 01, 2022 11:00pm March 09, 2023 9:30am esomeprazole 40 mg delayed release oral capsule (3 sources) Proton Pump Inhibitor Start: 05-03-2021 End: 05-28-2021 take 1 capsule by mouth once daily Esomeprazole Magnesium (Nexium) 40 mg capsule,delayed release(DR/EC) Discontinued 40 MG PO Daily May 03, 2021 12:00am May 28, 2021 10:26am famotidine 20 mg oral tablet (3 sources) Histamine-2 Receptor Antagonist Start: 05-03-2021 End: 05-25-2021 take 1 tablet by mouth once daily Famotidine (Pepcid) 20 mg Tablet Discontinued 20 MG PO Daily May 03, 2021 12:00am May 25, 2021 7:44am gabapentin 300 mg oral capsule (20 sources) Anti-epileptic Agent Start: 06-12-2022 End: 08-03-2022 take 300 mg by mouth once daily Gabapentin Discontinued 300 MG PO Daily June 11, 2022 11:00pm August 03, 2022 11:59am Start: 02-01-2022 End: 06-12-2022 take 300 mg by mouth twice daily Gabapentin Discontinued 300 MG PO Twice daily 60 February 01, 2022 12:00am June 12, 2022 7:00pm Start: 05-10-2021 End: 01-28-2022 take 300 mg by mouth three times daily Gabapentin Discontinued 300 MG PO Three times daily 90 May 10, 2021 12:00am January 28, 2022 3:15pm hydrOXYzine pamoate 25 mg oral capsule (3 sources) Antihistamine Start: 05-03-2021 End: 05-25-2021 take 1 capsule by mouth every eight hours Hydroxyzine Pamoate (Vistaril) 25 mg Capsule Discontinued 25 MG PO Q8H May 03, 2021 12:00am May 25, 2021 7:44am ibuprofen 600 mg oral tablet (15 sources) Nonsteroidal Anti-inflammatory Drug Start: 06-05-2022 End: 08-03-2022 take 600 mg by mouth four times daily Ibuprofen Discontinued 600 MG PO Four times daily June 11, 2022 11:00pm August 03, 2022 7:56am Start: 05-22-2022 End: 06-05-2022 take 1 tablet by mouth every six hours as needed for pain ibuprofen (MOTRIN) 600 MG tablet Take 1 Tablet by mouth every 6 hours as needed for Pain. 30 Tablet 0 05/22/2022 06/05/2022 Discontinued lamoTRIgine 25 mg oral tablet (2 sources) Mood Stabilizer, Anti-epileptic Agent Start: 08-03-2022 End: 03-09-2023 take 2 tablets by mouth once daily Lamotrigine (Lamictal) 25 mg tablet Discontinued 50 MG PO Daily August 02, 2022 11:00pm March 09, 2023 9:30am methocarbamol 750 mg oral tablet (10 sources) Muscle Relaxant Start: 06-05-2022 End: 08-03-2022 take 750 mg by mouth three times daily Methocarbamol Discontinued 750 MG PO Three times daily June 11, 2022 11:00pm August 03, 2022 7:56am mirtazapine 15 mg oral tablet (7 sources) Start: 10-02-2022 End: 03-09-2023 take 15 mg by mouth once daily at bedtime Mirtazapine Discontinued 15 MG PO Daily at bedtime October 01, 2022 11:00pm March 09, 2023 9:30am Start: 08-03-2022 End: 2022 take 7.5 mg by mouth once daily at bedtime Mirtazapine Discontinued 7.5 MG PO Daily at bedtime August 02, 2022 11:00pm 2022 7:23am Start: 02-01-2022 End: 06-12-2022 take 7.5 mg by mouth once daily at bedtime Mirtazapine Discontinued 7.5 MG PO Daily at bedtime February 01, 2022 12:00am June 12, 2022 7:00pm nicotine 2 mg chewing gum (3 sources) Cholinergic Nicotinic Agonist Start: 05-10-2021 End: 05-25-2021 Nicotine (Polacrilex) Discontinued 2 MG BUCCAL Q2H May 10, 2021 12:00am May 25, 2021 7:43am ondansetron 4 mg disintegrating oral tablet (3 sources) Serotonin-3 Receptor Antagonist Start: 05-03-2021 End: 05-25-2021 take 4 mg by mouth every six hours Ondansetron Discontinued 4 MG PO Q6H May 03, 2021 12:00am May 25, 2021 7:44am penicillin v potassium 250 mg oral tablet (6 sources) Start: 05-25-2021 End: 05-28-2021 take 250 mg by mouth every six hours Penicillin V Potassium Discontinued 250 MG PO Q6H May 25, 2021 12:00am May 28, 2021 10:26am Start: 05-03-2021 End: 05-25-2021 Penicillin V Potassium Disco ntinued 250 MG PO Four times daily May 03, 2021 12:00am May 25, 2021 7:44am 3 more days promethazine hydrochloride 25 mg oral tablet (3 sources) Phenothiazine Start: 05-03-2021 End: 05-25-2021 take 25 mg by mouth every six hours Promethazine Discontinued 25 MG PO Q6H 14 May 03, 2021 12:00am May 25, 2021 7:44am QUEtiapine 50 mg oral tablet (3 sources) Atypical Antipsychotic Start: 05-28-2021 End: 01-28-2022 take 50 mg by mouth once daily at bedtime Quetiapine Discontinued 50 MG PO Daily at bedtime May 28, 2021 12:00am January 28, 2022 3:15pm sertraline 50 mg oral tablet (3 sources) Serotonin Reuptake Inhibitor Start: 05-28-2021 End: 01-28-2022 take 50 mg by mouth once daily in the morning Sertraline Discontinued 50 MG PO Every morning May 28, 2021 12:00am January 28, 2022 3:15pm sucralfate 1000 mg oral tablet (3 sources) Aluminum Complex Start: 05-03-2021 End: 05-28-2021 take 1 g by mouth at bedtime Sucralfate Discontinued 1 GM PO before meals and at bedtime May 03, 2021 12:00am May 28, 2021 10:26am traMADol hydrochloride 50 mg oral tablet (3 sources) Opioid Agonist Start: 05-10-2021 End: 05-25-2021 take 50 mg by mouth every eight hours Tramadol Discontinued 50 MG PO Q8H 5 May 10, 2021 12:00am May 25, 2021 7:45am traZODone hydrochloride 50 mg oral tablet (2 sources) Serotonin Reuptake Inhibitor Start: 2022 End: 03-09-2023 take 50 mg by mouth once daily at bedtime Trazodone Discontinued 50 MG PO Daily at bedtime October 02, 2022 11:00pm March 09, 2023 9:30am Problems Active Problems Problem Classification Problem Date Documented Da te Episodic/Chronic Abdominal pain (3 sources) Indigestion; Translations: [Epigastric pain] 05-03-2021 Episodic Mood disorders (8 sources) Major depressive disorder, single episode, unspecified; Translations: [Depressive disorder] Onset: 01-29-2022 05-08-2021 Chronic Mood disorders (1 source) Mood disorders; Translations: [Depression, unspecified] Onset: 09-28-2022 Nausea and vomiting (3 sources) Nausea; Translations: [Nausea] 05-03-2021 Episodic Other connective tissue disease (3 sources) Myofascial pain; Translations: [Myalgia, other site] Episodic Other connective tissue disease (1 source) Localized masticatory muscle soreness; Translations: [Myalgia of mastication muscle] Episodic Other connective tissue disease (1 source) Muscle pain; Translations: [Myalgia, other site] Episodic Other nervous system disorders (4 sources) Polyneuropathy, unspecified; Translations: [POLYNEUROPATHY UNSPECIFIED] Onset: 05-28-2022 Chronic Other screening for suspected conditions (not mental disorders or infectious disease) (2 sources) Encounter for observation for other suspected diseases and conditions ruled out; Translations: [Encounter for observation for other suspected diseases and conditions ruled out] Onset: 06-14-2022 Episodic Residual codes; unclassified (1 source) Poor oral hygiene; Translations: [Other specified personal risk factors, not elsewhere classified] 10-29-2022 Episodic Spondylosis; intervertebral disc disorders; other back problems (5 sources) Radiculopathy, cervical region; Translations: [RADICULOPATHY CERVICAL REGION] Onset: 06-04-2022 Episodic Substance-related disorders (1 source) Nicotine dependence, cigarettes, uncomplicated; Translations: [NICOTINE DEPEND CIGARETTES UNCOMP] Onset: 06-13-2022 Chronic Substance-related disorders (1 source) Cannabis use, unspecified, uncomplicated; Translations: [CANNABIS USE UNS UNCOMPLICATED] Onset: 06-13-2022 Episodic Unclassified (1 source) CONTACT W/AND (SUSP) EXPOS COVID-19; Translations: [CONTACT W/AND (SUSP) EXPOS COVID-19] Onset: 06-13-2022 Past or Other Problems Problem Classification Problem Date Documented Date Episodic/Chronic Disorders of teeth and jaw (11 sources) Pain of right temporomandibular joint; Translations: [Arthralgia of right temporomandibular joint] Onset: 06-04-2022 Episodic Other connective tissue disease (1 source) Myalgia of mastication muscle; Translations: [Myalgia of mastication muscle] Onset: 06-14-2022 Episodic Other connective tissue disease (1 source) Myalgia, other site; Translations: [Myalgia, other site] Onset: 05-22-2022 Episodic Other nutritional; endocrine; and metabolic disorders (4 sources) Anorexia; Translations: [ANOREXIA] Onset: 01-28-2022 Episodic Residual codes; unclassified (1 source) Other specified personal risk factors, not elsewhere classified; Translations: [Other specified personal risk factors, not elsewhere classified] Onset: 10-29-2022 Episodic Residual codes; unclassified (1 source) Body mass index (BMI) pediatric, 5th percentile to less than 85th percentile for age; Translations: [Body mass index (BMI) pediatric, 5th percentile to less than 85th percentile for age] Onset: 05-22-2022 Episodic Suicide and intentional self-inflicted injury (8 sources) Suicidal ideations; Translations: [Suicidal thoughts] Onset: 06-12-2022 Episodic Results Test Name Value Interpretation Reference Range Facility Progress Noteson 03-25-2023 Bacteriology Professor Authentication Interface Message Text ----- Saturday, March 25, 2023 at 8:30:40 AM ----- ----- Provider: Vivian Mccord Fellow -- Clinic: [place] ----- Patient messaged ([facility]) nj at 8:20 am today to cancel his appointment for TPI today at 11:20. States he is sick. Patient was last seen for injections 2 months ago on 01/21/23. He wanted to know how thick his mouthguard is - informed him it is usually about 2 mm thick. 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 He also inquired last month on [facility] for a provider closer to him for TPI. He was provided with name and number of an orofacial pain specialist. He responded stating that they don't take his insurance so he wont be able to see them. He stated he had many questions about his TMD - was informed that we can answer all of them at his appointment. Patient messages very frequently on [facility], and multiple times when he does not get a response KT. His messages are not of urgent nature or medication refills. Responded thank you for taking 2 weeks to get back to me, appreciate it when I responded after my vacation to his repeated messages about what our TPI injections consist of - local anesthetic or steroid. Normal [employer] Cholesterol [Mass/volume] in Serum or PlasmaOrdered By: Shubham Ding on 03-10-2023 Cholesterol [Mass/Vol] 117 mg/dL 140-200 [facility] Comment on above: Chol less than 200 m g/dl low riskChol 201-239 mg/dl borderline riskChol 240 mg/dl and greater high risk Cholesterol in LDL Calc [Mas s/Vol]Ordered By: Shubham Ding on 03-10-2023 Cholesterol in LDL [Mass/Vol] 64 mg/dL 0-100 [facility] Comment on above: LDL ATP III CLASSIFI CATIONLDL less than 100 mg/dL OptimalLDL 100-129 mg/dL Near or above optimalLDL 130-159 mg/dL Borderline highLDL 160-189 mg/dL HighLDL greater than 189 mg/dL Very high Cholesterol in VLDL Calc [Ma ss/Vol]Ordered By: Shubham Ding on 03-10-2023 Cholesterol in VLDL [Mass/Vol] 8 mg/dL [facility] Lipid Panelon 03-10-2023 Cholesterol [Mass/Vol] 117 mg/dL Low 140-200 [facility] Comment on above: Result Comment: Chol less than 200 mg/dl low risk Chol 201-239 mg/dl borderline risk Chol 240 mg/dl and greater high risk Performed By: #### C MP, CBC, ETOH #### [facility] [address] [id number] [place] Cholesterol in HDL [Mass/Vol] 45 mg/dL Normal 23-92 [facility] Comment on above: Result Comment: HDL CHOL ATP-III CLASSIFICATION Cardiovascular Risk HDL > or equal to 60 mg/dL LOW HDL < 40 mg/dL HIGH Performed By: #### C MP, CBC, ETOH #### [facility] [address] [place] [address] [facility] Cholesterol.total/Abi sterol in HDL [Mass ratio] 2.6 {ratio} Normal <5.0 [facility] Comment on above: Performed By: #### C MP, CBC, ETOH #### [facility] [address] LDL Cholesterol,Calculated 64 mg/dL Normal 0-100 [facility] Comment on above: Result Comment: LDL ATP III CLASSIFICATION LDL less than 100 mg/dL Optimal LDL 100-129 mg/dL Near or above optimal LDL 130-159 mg/dL Borderline high LDL 160-189 mg/dL High LDL greater than 189 mg/dL Very high Performed By: #### C MP, CBC, ETOH #### [facility] [address] Triglyceride w/Reflex 42 mg/dL Normal 0-149 [facility] Comment on above: Result Comment: TRIG ATP III CLASSIFICATION TRIG less than 150 mg/dL Normal TRIG 150-199 mg/dL Borderline high TRIG 200-500 mg/dL High TRIG greater than 500 mg/dL Very high Standard traceable to the Center for Disease Conrtrol and Prevention (CDC) test method. Performed By: #### C MP, CBC, ETOH #### [facility] [address] VLDL CHOLESTEROL 8 mg/dL Normal [facility] Comment on above: Performed By: #### C MP, CBC, ETOH #### [facility] [address] Serum or plasma high density lipoprotein (HDL) cholesterol measurementOrdered By: Shubham Ding on 03-10-2023 Cholesterol in HDL [Mass/Vol] 45 mg/dL 23- [facility] Comment on above: HDL CHOL ATP-III CLA SSIFICATION Cardiovascular RiskHDL > or equal to 60 mg/dL LOWHDL < 40 mg/dL HIGH Serum or plasma total choles terol/high density lipoprotein (HDL) cholesterol mass ratOrdered By: Shubham Ding on 03-10-2023 Cholesterol.total/Abi sterol in HDL [Mass ratio] 2.6 {ratio} <5.0 [facility] Thyroid Stim Hormone w/Rflxo n 03-10-2023 Thyroid Stim Hormone w/Rflx 0.83 u[iU]/mL Normal 0.45-5.33 [facility] Comment on above: Performed By: #### C MP, CBC, ETOH #### [facility] [address] Thyrotropin [Units/volume] i n Serum or PlasmaOrdered By: Shubham Ding on 03-10-2023 TSH Qn 0.83 m[IU]/L 0.45-5.33 [facility] Triglyceride [Mass/volume] i n Serum or PlasmaOrdered By: Shubham Ding on 03-10-2023 Triglyceride [Mass/Vol] 42 mg/dL 0-149 [facility] Comment on above: TRIG ATP III CLASSIF ICATIONTRIG less than 150 mg/dL NormalTRIG 150-199 mg/dL Borderline highTRIG 200-500 mg/dL High TRIG greater than 500 mg/dL Very highStandard traceable to the Center for Disease Conrtrol and Prevention (CDC) test method. Vitamin D 25 Hydroxy Totalon 03-10-2023 Vitamin D 25 Hydroxy Total 44.6 ng/mL Normal 30-100 [facility] Comment on above: Result Comment: GREY MIN D STATUS 25([place])VITAMIN D RANGE (ng/mL) Deficient <20 Insufficient 20 to <30 Sufficient 30 to 100 Reference: Al Napier, Yvonne RODRIGUEZ, et al. Evaluation,treatment, and prevention of vitamin D deficiency; an Endocrine Society clinical practice guideline. JCEM. 2010; 96(7):1911-30. PERFORMED BY: [place] [address] PATHOLOGIST SECURITY DIRECTOR HANNY WEAVER M.D. Performed By: #### C MP, CBC, ETOH #### [facility] [id number] [facility] Vitamin D+Metabolites [Mass/ volume] in Serum or PlasmaOrdered By: Shubham Ding on 03-10-2023 Vitamin D+Metabolites [Mass/Vol] 44.6 ng/mL 30-100 [facility] Comment on above: VITAMIN D STATUS 25( [place])VITAMIN D RANGE (ng/mL) Deficient <20 Insufficient 20 to <30Sufficient 30 to 100Reference: Al Napier, Yvonne RODRIGUEZ, et al. Evaluation,treatment, and prevention of vitamin D deficiency; an Endocrine Society clinical practice guideline. JCEM. 2010; 96(7):1911-30. ECG 12 lead ECGon 03-09-2023 ECG 12 lead ECG [facility] [address] [place] [id number] Electrocardiograph Report Signed Patient: Betty Rosenberg MR#: [id number] 140 : 2000 Acct:[id number] Age/Sex: 22 / M ADM Date: 03/09/23 Loc: Room: [address] [place] [address] Type: ADM IN Attending Dr: Shubham Ding MD Ordering Provider: Shubham Ding MD Date of Service: 03/09/23 ECG/ECG 12 lead ECG: baseline Copies to: Test Reason : Blood Pressure : / mmHG Vent. Rate : 073 BPM Atrial Rate : 073 BPM P-R Int : 128 ms QRS Dur : 084 ms QT Int : 370 ms P-R-T Axes : 070 088 047 degrees QTc Int : 407 ms Normal sinus rhythm with sinus arrhythmia Normal ECG When compared with ECG of 29-SEP-2022 07:23, No significant change was found Confirmed by RANDY NEWTON [facility] ([id number][facility] on 03/10/2023 11:46:30 AM Referred By: Electronically Signed By:HAJA ROY MD [facility] Transcribed By: MUS Signed By Aiden Roy MD 03/10/[address] [facility] Progress Noteson 02-22-2023 Bacteriology Professor Authentication Interface Message Text ----- Wednesday, February 22, 2023 at 11:57:25 AM ----- ----- Provider: [id number] Mikey Resident Yelitza -- Clinic: [place] ----- COM[employer]ITE [employer] Patient is scheduled for Rastafarian on tooth #20 MOD and 21 [id number] . Reviewed Medical History. Pt exhibited the following conditions: No significant medical history Patient is ready for treatment. Topical Benzocaine gel applied at the injection site for 2 minutes. Administered 1 carpules of Lidocaine, 2% with Epinephrine 1:100,000,. Isolation achieved. Decay/existing pentecostalism removed, cavity prepared. Selectively etched enamel with 37% phosphoric acid, rinsed, and blot dried. OptiBond delaney applied and light-cured. Condensed packable composite shade a3 in light cured increments using Toffelmaire matrix band retainer and wedge. Finished with finishing burs, checked occlusion, verified proximal contacts and pentecostalism was polished. Rinsed and suctioned intraorally, advised patient to not eat until local anesthesia wears off. POST OPERATIVE Periapical (single) RADIOGRAPH TAKEN. NOTE: Next Visit: Restorative ----- Signed on Saturday, February 25, 2023 at 5:04:28 AM ----- ----- Provider: [id number] - Ruel Cruz DMD -- Clinic: [place] ----- Normal [facility] [employer] [facility] Progress Noteson 02-06-2023 Bacteriology Professor Authentication Interface Message Text ----- Monday, February 06, 2023 at 2:01:57 PM ----- ----- Provider: [id number] - Resident Nithya -- Clinic: [place] ----- COMPOSITE ADVENTIST Patient is scheduled for Rastafarian on tooth #4 and 5 surface B5. Reviewed Medical History. Pt exhibited the following conditions: No significant medical history Patient is ready for treatment. Topical Benzocaine gel applied at the injection site for 2 minutes. Administered 1 carpules of Articaine, 4% with Epinephrine 1:100,000,. Isolation achieved. Decay/existing pentecostalism removed, cavity prepared. Selectively etched enamel with 37% phosphoric acid, rinsed, and blot dried. OptiBond delaney applied and light-cured. Condensed packable composite shade a2 in light cured increments using Mylar strip and wedge. Finished with finishing burs, checked occlusion, verified proximal contacts and pentecostalism was polished. Rinsed and suctioned intraorally, advised patient to not eat until local anesthesia wears off. POST OPERATIVE RADIOGRAPH TAKEN. Next Visit: Restorative ----- Signed on Monday, February 06, 2023 at 2:08:28 PM ----- ----- Provider: [id number] - Christian Troncoso DDS -- Clinic: [place] ----- Normal [facility] [facility] Progress Noteson 01-21-2023 Bacteriology Professor Authentication Interface Message Text ----- Saturday, January 21, 2023 at 10:37:19 AM ----- ----- Provider: [id number] Tessa Mccord, Fellow -- Clinic: [place] ----- Patient returned for trigger point injections cycle 1 # 4 Patient missed last appointment for TPI and pentecostalism with adjustment of espana. Referring physician: Cherise Ramirez MD DMD Reiterated the importance of maintaining regular appointments for TPI, pursuing PT and regular care with [facility] for restorative work. Reports good pain relief after TPI Impression: F41.1 anxiety, F45.8 bruxism, G44.8 TMD associated headache, M26.623 arthralgia TMJ bilateral, M67.90 tendonitis temporalis and M79.11 myalgia muscles mastication Depression (not very well managed) (multiple ER visits due to SI in the recent past) Anorexia Vitals: BP: 132/80 Pulse: 82 Oxygen:98 Plan: Trigger point injections: done today, prep with alcohol, IFC signed. Explained risks and benefits, including pain, swelling, hemorrhage, CN VII involvement. Mepivacaine 3% on bilateral, masseter (0.4 cc), temporalis tendon extraoral (#0.1 cc) Rested 5 min to observe for AEs. Plan: 1. Continue TPI 2. Pursue PT 3. Continue getting restorative work done NV: TPI cycle 1 #5 Advised to bring ESPANA at next restorative visit so we can try to adjust fillings so that ESPANA fits ( filling #31 ) Teaching Attending Note: I saw and evaluated the patient. I personally obtained the valencia and critical portions of the history and physical exam. I reviewed the resident's /fellow's documentation and discussed the patient with the resident. I agree with the resident's medical decision making as documented in the resident's note. ----- Signed on Sunday, January 22, 2023 at 6:19:19 AM ----- ----- Provider: [id number] Tessa Cruz DMD -- Clinic: [place] ----- Normal [facility] Telephone Encounteron 2022 Bacteriology Professor Authentication Interface Message Text Situation: UPDATE Background: Pt would like Provider Suri to msg him on [employer]. Pt states he is unable to msg provider because their msgs have . Pt would like to stay in contact with provider via MyChart in order to schedule his trigger point appts. Pt does not want to call in to be scheduled. Pt last seen 11/16/22 w [facility] Assessment: n/a Recommendation: VIDHYA Thank you :) Msg sent to Suri @ [facility] on 12/28/22 Normal [facility] [employer] [facility] Progress Noteson 11-16-2022 Bacteriology Professor Authentication Interface Message Text ----- Wednesday, November 16, 2022 at 11:09:37 AM ----- ----- Provider: [id number] Tessa Mccord, Fellow -- Clinic: [place] ----- Patient returned for trigger point injections cycle 1 # 3 Referring physician: Cherise Ramirez MD DMD Reiterated the importance of maintaining regular appointments for TPI, pursuing PT and regular care with [facility] for restorative work. Reports good pain relief after TPI Impression: F41.1 anxiety, F45.8 bruxism, G44.8 TMD associated headache, M26.623 arthralgia TMJ bilateral, M67.90 tendonitis temporalis and M79.11 myalgia muscles mastication Depression (not very well managed) (multiple ER visits due to SI in the recent past) Anorexia Vitals: BP: 110/80 Pulse: 82 Oxygen:98 Plan: Trigger point injections: done today, prep with alcohol, IFC signed. Explained risks and benefits, including pain, swelling, hemorrhage, CN VII involvement. Mepivacaine 3% on bilateral, masseter (0.4 cc), temporalis tendon extraoral (#0.1 cc) Rested 5 min to observe for AEs. Plan: 1. Continue TPI 2. Pursue PT 3. Continue getting restorative work done NV: TPI cycle 1 #4 Advised to bring ESPANA at next restorative visit so we can try to adjust fillings so that ESPANA fits Teaching Attending Note: I saw and evaluated the patient. I personally obtained the valencia and critical portions of the history and physical exam. I reviewed the resident's /fellow's documentation and discussed the patient with the resident. I agree with the resident's medical decision making as documented in the resident's note. ----- Signed on Saturday, November 19, 2022 at 9:53:55 PM ----- ----- Provider: [id number] Tessa Cruz DMD -- Clinic: [place] ----- Normal [facility] Progress Noteson 10-29-2022 Bacteriology Professor Authentication Interface Message Text ----- Saturday, October 29, 2022 at 1:01:28 PM ----- ----- Provider: [id number] - Alfonzo Mccord, Fellow -- Clinic: [place] ----- Patient returned for trigger point injections cycle 1 # 2 Referring physician: Cherise Ramirez MD DMD Reiterated the importance of maintaining regular appointments for TPI, pursuing PT and regular care with [facility] for restorative work. -Patient wants to get TPI done every two weeks since that's what he says was 'promised' to him. -He had a lot of questions about the restorative work - advised to ask his restorative dentist at his appointments. -Mandibular guard chief does not fit due to filling on #31. We will reline the intaglio surface of ESPANA after fillings on LLQ are completed. -He requested a prescription of peridex. Rx'ed it today. -Upset that someone told him that he does not brush his teeth and that he was 'pissed off' by it. We did not comment on that. Impression: F41.1 anxiety, F45.8 bruxism, G44.8 TMD associated headache, M26.623 arthralgia TMJ bilateral, M67.90 tendonitis temporalis and M79.11 myalgia muscles mastication Depression (not very well managed) (multiple ER visits due to SI in the recent past) Anorexia Vitals: BP: 109/80 Pulse: 87 Oxygen:98 Plan: Trigger point injections: done today, prep with alcohol, IFC signed. Explained risks and benefits, including pain, swelling, hemorrhage, CN VII involvement. Mepivacaine 3% on bilateral, masseter (0.4 cc), temporalis tendon extraoral (#0.1 cc) Rested 5 min to observe for AEs. Plan: 1. Continue TPI 2. Pursue PT 3. Continue getting restorative work done NV: TPI cycle 1 #3 Teaching Attending Note: I saw and evaluated the patient. I personally obtained the valencia and critical portions of the history and physical exam. I reviewed the resident's /fellow's documentation and discussed the patient with the resident. I agree with the resident's medical decision making as documented in the resident's note. ----- Signed on Saturday, October 29, 2022 at 2:52:21 PM ----- ----- Provider: Manuel Cruz DMD -- Clinic: [place] ----- Normal [facility] Progress Noteson 10-24-2022 Bacteriology Professor Authentication Interface Message Text Patient was given my email (Yana's email) by Dr. Mccord on 10/23/2022. He is upset that his appointment for TPI was canceled (10/25/2022) due to not having a prior authorization. Patient emailed me once on 10/23/2022 asking why there was an issue with his appointment, he stated he NEEDS these injections, and he has been in and out of psych unit for suicidal ideation from this pain . And asked for my office phone number. I responded to patient Saturday morning (10/24/2022 @8:01 am) stating we just found out about the prior authorization for TPI last Saturday (10/19/2022) and I would send the prior authorization today for the TPI and I stated my office phone number Patient then called me 12 times left 2 voicemail's and emailed me 6 times within 45 minutes. I called the patient back once I had officer Josef and selling manager Cely in my office. Patient was not happy and rude at first because he can not live through this pain its hell. He did not understand why I did not send prior 3 weeks ago and I told him again I only found out last Saturday about the prior authorizations and I sent it today and I should get a response within 48 hours. And his previous TPI was free because we did not have a prior authorizations and Jesica wrote it off. Patient calmed and was happy I got him back in on Saturday10/29/2022 @1pm Tessa Millan----- Monday, October 24, 2022 at 9:17:38 AM ----- ----- Provider: CRISELDA Drake, Dental Type Rolling Machine Operator -- Clinic: [place] ----- Normal [facility] [employer] [facility] Progress Noteson 10-11-2022 Bacteriology Professor Authentication Interface Message Text ----- September at 2:40:08 PM ----- ----- Provider: [id number] Jimmy -- Clinic: [place] ----- COMPOSITE ADVENTIST Patient is scheduled for Rastafarian on tooth #31 surface MOLB. Reviewed Medical History. Pt exhibited the following conditions: nothing mentioned in EPIC Patient is ready for treatment. Topical Benzocaine gel applied at the injection site for 2 minutes. Administered 1 carpules of Lidocaine, 2% with Epinephrine 1:100,000,. Rubber dam isolation achieved. Decay/existing pentecostalism removed, cavity prepared. [place] [employer]ite Selectively etched enamel with 37% phosphoric acid, rinsed, and blot dried. Xeno IV delaney applied and light-cured. Condensed packable composite shade A2 in light cured increments using Toffelmaire matrix band retainer and wedge. Finished with finishing burs, checked occlusion, verified proximal contacts and pentecostalism was polished. Rinsed and suctioned intraorally, advised patient to not eat until local anesthesia wears off. POST OPERATIVE Bitewing (single) RADIOGRAPH TAKEN. NOTE: Patient had filling same tooth in 08/23/22 , filling fall out from lingual side. Soft decay was found and removed. it was too deep . patient was informed that tooth might need RCT and crown or ext later due to large filling size. patient has poor OH ... billed before for OL, today we re did those surfaces (didn't bill for them) with the new filling. Next Visit: Restorative ----- Signed on September at 2:57:24 PM ----- ----- Provider: [id number] Tessa Troncoso DDS -- Clinic: [place] ----- Normal [employer] Cholesterol [Mass/volume] in Serum or PlasmaOrdered By: Shubham Ding on 09-29-2022 Cholesterol [Mass/Vol] 147 mg/dL 140-200 [facility] Comment on above: Chol less than 200 m g/dl low riskChol 201-239 mg/dl borderline riskChol 240 mg/dl and greater high risk Cholesterol in LDL Calc [Mas s/Vol]Ordered By: Shubham Ding on 07-15-2023 Cholesterol in LDL [Mass/Vol] 86 mg/dL 0-100 [facility] Comment on above: LDL ATP III CLASSIFI CATIONLDL less than 100 mg/dL OptimalLDL 100-129 mg/dL Near or above optimalLDL 130-159 mg/dL Borderline highLDL 160-189 mg/dL HighLDL greater than 189 mg/dL Very high Cholesterol in VLDL Calc [Ma ss/Vol]Ordered By: Shubham Ding on 09-29-2022 Cholesterol in VLDL [Mass/Vol] 12 mg/dL [facility] ECG 12 lead ECGon 09-29-2022 ECG 12 lead ECG [facility] [address] [place] [address] Electrocardiograph Report Signed Patient: Betty Rosenberg MR#: [id number] 140 : 2000 Acct:[id number] Age/Sex: 21 / M ADM Date: 09/28/22 Loc: Room: [address] [place] [address] Type: ADM IN Attending Dr: Shubham Ding MD Ordering Provider: Shubham Ding MD Date of Service: 09/29/22 ECG/ECG 12 lead ECG: baseline Copies to: Test Reason : Blood Pressure : / mmHG Vent. Rate : 067 BPM Atrial Rate : 067 BPM P-R Int : 140 ms QRS Dur : 080 ms QT Int : 372 ms P-R-T Axes : 052 059 035 degrees QTc Int : 393 ms Normal sinus rhythm with sinus arrhythmia Normal ECG When compared with ECG of 03-AUG-2022 14:04, No significant change was found Confirmed by PRINCESS SMALLS MD ([id number]) on 09/29/2022 10:26:57 AM Referred By: Electronically Signed By:PRINCESS SMALLS MD Transcribed By: MUS Signed By Princess Smalls MD 0 09/29/22 1027 Normal [facility] Lipid Panelon 09-29-2022 Cholesterol [Mass/Vol] 147 mg/dL Normal 140-200 [facility] Comment on above: Result Comment: Chol less than 200 mg/dl low risk Chol 201-239 mg/dl borderline risk Chol 240 mg/dl and greater high risk Performed By: #### C MP, CBC, ETOH #### [facility] [address] Cholesterol in HDL [Mass/Vol] 49 mg/dL Normal [facility] Comment on above: Result Comment: HDL CHOL ATP-III CLASSIFICATION Cardiovascular Risk HDL > or equal to 60 mg/dL LOW HDL < 40 mg/dL HIGH Performed By: #### C MP, CBC, ETOH #### [facility] [address] Cholesterol.total/Abi sterol in HDL [Mass ratio] 3.0 {ratio} Normal <5.0 [facility] Comment on above: Performed By: #### C MP, CBC, ETOH #### [facility] [address] LDL Cholesterol,Calculated 86 mg/dL Normal 0-100 [facility] Comment on above: Result Comment: LDL ATP III CLASSIFICATION LDL less than 100 mg/dL Optimal LDL 100-129 mg/dL Near or above optimal LDL 130-159 mg/dL Borderline high LDL 160-189 mg/dL High LDL greater than 189 mg/dL Very high Performed By: #### C MP, CBC, ETOH #### [facility] [address] Triglyceride w/Reflex 62 mg/dL Normal 0-149 [facility] Comment on above: Result Comment: TRIG ATP III CLASSIFICATION TRIG less than 150 mg/dL Normal TRIG 150-199 mg/dL Borderline high TRIG 200-500 mg/dL High TRIG greater than 500 mg/dL Very high Standard traceable to the Center for Disease Conrtrol and Prevention (CDC) test method. Performed By: #### C MP, CBC, ETOH #### [facility] [address] [place] [id number] [facility] VLDL CHOLESTEROL 12 mg/dL Normal [facility] Comment on above: Performed By: #### C MP, CBC, ETOH #### [facility] [address] Serum or plasma high density lipoprotein (HDL) cholesterol measurementOrdered By: Shubham Ding on 09-29-2022 Cholesterol in HDL [Mass/Vol] 49 mg/dL [facility] Comment on above: HDL CHOL ATP-III CLA SSIFICATION Cardiovascular RiskHDL > or equal to 60 mg/dL LOWHDL < 40 mg/dL HIGH Serum or plasma total choles terol/high density lipoprotein (HDL) cholesterol mass ratOrdered By: Shubham Ding on 09-29-2022 Cholesterol.total/Abi sterol in HDL [Mass ratio] 3.0 {ratio} <5.0 [facility] Thyroid Stim Hormone w/Rflxo n 09-29-2022 Thyroid Stim Hormone w/Rflx 0.75 u[iU]/mL Normal 0.45-5.33 [facility] Comment on above: Performed By: #### C MP, CBC, ETOH #### [address] Thyrotropin [Units/volume] i n Serum or PlasmaOrdered By: Shubham Ding on 09-29-2022 TSH Qn 0.75 m[IU]/L 0.45-5.33 [facility] Triglyceride [Mass/volume] i n Serum or PlasmaOrdered By: Shubham Ding on 09-29-2022 Triglyceride [Mass/Vol] 62 mg/dL 0-149 [facility] Comment on above: TRIG ATP III CLASSIF ICATIONTRIG less than 150 mg/dL NormalTRIG 150-199 mg/dL Borderline highTRIG 200-500 mg/dL High TRIG greater than 500 mg/dL Very highStandard traceable to the Center for Disease Conrtrol and Prevention (CDC) test method. Vitamin D 25 Hydroxy Totalon 09-29-2022 Vitamin D 25 Hydroxy Total 57.5 ng/mL Normal 30-100 [facility] Comment on above: Result Comment: GREY MIN D STATUS 25([place])VITAMIN D RANGE (ng/mL) Deficient <20 Insufficient 20 to <30 Sufficient 30 to 100 Reference: Richy MF,Al NC, Yvonne RODRIGUEZ, et al. Evaluation,treatment, and prevention of vitamin D deficiency; an Endocrine Society clinical practice guideline. JCEM. 2010; 96(7):1911-30. PERFORMED BY: [place] [id number] PATHOLOGIST SECURITY DIRECTOR HANNY WEAVER M.D. Performed By: #### C MP, CBC, ETOH #### [facility] [address] Vitamin D+Metabolites [Mass/ volume] in Serum or PlasmaOrdered By: Shubham Ding on 09-29-2022 Vitamin D+Metabolites [Mass/Vol] 57.5 ng/mL 30-100 [facility] Comment on above: VITAMIN D STATUS 25( [place])VITAMIN D RANGE (ng/mL) Deficient <20 Insufficient 20 to <30Sufficient 30 to 100Reference: Richy MF,Al NC, Yvonne RODRIGUEZ, et al. Evaluation,treatment, and prevention of vitamin D deficiency; an Endocrine Society clinical practice guideline. JCEM. 2010; 96(7):1911-30. Progress Noteson 09-27-2022 Bacteriology Professor Authentication Interface Message Text ----- September at 5:36:14 PM ----- ----- Provider: Candy Gerard -- Clinic: [place] ----- 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 Reviewed patient's medical history. Patient is ready for treatment. An Occlusal Bite Guard was fitted in the patient's mouth. Occlusion checked and adjusted. The patient has been instructed to wear the bite guard at night. The patient has also been encouraged to wear the guard any time they are biting or grinding their teeth. --- Patient returned for trigger point injections cycle 1 # 1 ( re-start cycle due to multiple missed appointments) Referring physician: Cherise Ramirez MD DMD HPI: Muscles of mastication are tender to palpation R>L . BERT : 32. Reiterated the importance of maintaining regular appointments for TPI, pursuing PT and regular care with [facility] for restorative work. Pt states he 'forgets' to make appointment for PT. He lives 2 hours away and his father drives him to his appointments. Impression: F41.1 anxiety, F45.8 bruxism, G44.8 TMD associated headache, M26.623 arthralgia TMJ bilateral, M67.90 tendonitis temporalis and M79.11 myalgia muscles mastication Depression (not very well managed) (multiple ER visits due to SI in the recent past) Anorexia Vitals: BP: 125/80 Pulse: 87 Oxygen:94 Plan: Trigger point injections: done today, prep with alcohol, IFC signed. Explained risks and benefits, including pain, swelling, hemorrhage, CN VII involvement. Mepivacaine 3% on bilateral, masseter (0.4 cc), temporalis tendon extraoral (#0.1 cc) and SCM (#0.2 cc) Rested 5 min to observe for AEs. NOTE: Patient refuses to try muscle relaxants. Advised taking a muscle relaxant before dental appointments to facilitate smoother and more comfortable care and possibility of doing multiple fillings at a visit like the patient wishes, but he declined. He informed me that his father gives him gabapentin and opioids for pain relief which in the patient's opinion work better. Advised against this, but patient refuses to take provider's advise. Plan: 1. Consider SW closer to patient's home at next visit. 2. Pursue PT 3. Continue ESPANA use and TPI 4. Reinforced need for restorative care. Continue getting restorative work done (depending on patient's tolerance level and ability to open) while we continue to provide care for TMD NV: TPI cycle 1 #2 and ESPANA follow up Teaching Attending Note: I saw and evaluated the patient. I personally obtained the valencia and critical portions of the history and physical exam. I reviewed the resident's /fellow's documentation and discussed the patient with the resident. I agree with the resident's medical decision making as documented in the resident's note. ----- Signed on Wednesday, September 28, 2022 at 8:48:46 AM ----- ----- Provider: [id number] - Ruel Cruz DMD -- Clinic: [place] ----- Normal [facility] [employer] [facility] Progress Noteson 09-21-2022 Bacteriology Professor Authentication Interface Message Text ----- Wednesday, September 21, 2022 at 12:38:33 PM ----- ----- Provider: [id number] - Candy Lala -- Clinic: [place] ----- This note is to document inappopriate behavior. Patient relations notified. Patient repeatedly attempts to message provider on social media. When redirected to [employer], becomes combative and verbally abusive. Repeated efforts have been made to schedule for comprehensive dental and specialty orofacial pain treatment in a timely manner. Consider dismissing from practice. Normal [employer] [facility] Progress Noteson 09-05-2022 Bacteriology Professor Authentication Interface Message Text ----- Monday, September 05, 2022 at 11:13:41 AM ----- ----- Provider: [id number] - Erma Riley, -- Clinic: [place] ----- COMPOSITE ADVENTIST Patient is scheduled for Rastafarian on tooth #13 surface MOD. Reviewed Medical History. Pt exhibited the following conditions: No significant medical history Patient is ready for treatment. Topical Benzocaine gel applied at the injection site for 2 minutes. Administered 1 carpules of Lidocaine, 2% with Epinephrine 1:100,000,. Decay/existing pentecostalism removed, cavity prepared. Selectively etched enamel with 37% phosphoric acid, rinsed, and blot dried. OptiBond delaney applied and light-cured. Condensed packable composite shade A2 in light cured increments using Toffelmaire matrix band retainer and wedge. Finished with finishing burs, checked occlusion, verified proximal contacts and pentecostalism w as polished. Rinsed and suctioned intraorally, advised patient to not eat until local anesthesia wears off. POST OPERATIVE Periapical (single) RADIOGRAPH TAKEN. NOTE: Extremely difficult to work with limited mouth opening. Patient is waiting to see for tmj issue. Recommended patient to see first before restorations, because of severe pain in opening the mouth, and staying open for restorations. Patient needs multiple breaks in between, no more than one camryn at a time. Next Visit: Restorative ----- Signed on Monday, September 05, 2022 at 12:33:50 PM ----- ----- Provider: [id number] - Christian Troncoso DDS -- Clinic: [place] ----- Normal [employer] Bacteriology Professor Authentication Interface Message Text Normal [employer] Progress Noteson 08-23-2022 Bacteriology Professor Authentication Interface Message Text ----- August at 1:08:31 PM ----- ----- Provider: [id number] - Erma Riley, -- Clinic: [place] ----- COMPOSITE ADVENTIST Patient is scheduled for Rastafarian on tooth #26- F, 27- DL, 28-MOD, 29- MODB and 31 surface OL. Reviewed Medical History. Pt exhibited the following conditions: Mental Disorders Patient is ready for treatment. Topical Benzocaine gel applied at the injection site for 2 minutes. Administered 1 carpules of Lidocaine, 2% with Epinephrine 1:100,000,. Decay/existing pentecostalism removed, cavity prepared. Selectively etched enamel with 37% phosphoric acid, rinsed, and blot dried. OptiBond delaney applied and light-cured. Condensed packable composite shade A2 in light cured increments using Toffelmaire matrix band retainer and wedge. Finished with finishing burs, checked occlusion, verified proximal contacts and pentecostalism was polished. Rinsed and suctioned intraorally, advised patient to not eat until local anesthesia wears off. POST OPERATIVE Periapical (single) RADIOGRAPH TAKEN. NOTE: Patient have severe TMJ problem, he missed his appointment with , Patient had limited mouth opening, patient was supposed to get one filling at a time because of limited mouth opening and tmj pain. Filling on #30 was done first. Patient requested if I can do more fillings? Patient was told that if he is okay to keep his mouth open then yes we can do more fillings. bite block was used but patient had a gag, could not use it. After the cavity prep on #29,#28,#27,#26 patient started complaining about tmj pain. He almost started crying because he could not keep his mouth open. fillings on 26,27,28,29 were done with minimal mouth openings and with multiple breaks. Had a hard time restoring teeth. Patient was told that it is best to fill one tooth at a time for his comfort level. Overhang noticed in post op xray on #27, overhang was corrected with a needle bur. Next Visit: Restorative not more than 1 or 2 teeth/ appointment ----- Signed on August at 2:30:41 PM ----- ----- Provider: Michael Troncoso DDS -- Clinic: [place] ----- Normal [facility] Cholesterol [Mass/volume] in Serum or PlasmaOrdered By: Shubham Ding on 08-04-2022 Cholesterol [Mass/Vol] 133 mg/dL 140-200 [facility] Comment on above: Chol less than 200 m g/dl low riskChol 201-239 mg/dl borderline riskChol 240 mg/dl and greater high risk Cholesterol in LDL Calc [Mas s/Vol]Ordered By: Shubham Ding on 08-04-2022 Cholesterol in LDL [Mass/Vol] 69 mg/dL 0-100 [facility] Comment on above: LDL ATP III CLASSIFI CATIONLDL less than 100 mg/dL OptimalLDL 100-129 mg/dL Near or above optimalLDL 130-159 mg/dL Borderline highLDL 160-189 mg/dL HighLDL greater than 189 mg/dL Very high Cholesterol in VLDL Calc [Ma ss/Vol]Ordered By: Shubham Ding on 08-04-2022 Cholesterol in VLDL [Mass/Vol] 17 mg/dL [facility] Lipid Panelon 08-04-2022 Cholesterol [Mass/Vol] 133 mg/dL Low 140-200 [facility] Comment on above: Result Comment: Chol less than 200 mg/dl low risk Chol 201-239 mg/dl borderline risk Chol 240 mg/dl and greater high risk Performed By: #### V [id number], TSH3 wRFLX, LIPID #### [facility] [address] [place] [address] Cholesterol in HDL [Mass/Vol] 47 mg/dL Normal 29-71 [facility] Comment on above: Result Comment: HDL CHOL ATP-III CLASSIFICATION Cardiovascular Risk HDL > or equal to 60 mg/dL LOW HDL < 40 mg/dL HIGH Performed By: #### V [id number], TSH3 wRFLX, LIPID #### [facility] [address] [place] [address] [place] Cholesterol.total/Abi sterol in HDL [Mass ratio] 2.8 {ratio} Normal <5.0 [facility] Comment on above: Performed By: #### V [id number], TSH3 wRFLX, LIPID #### [facility] [address] LDL Cholesterol,Calculated 69 mg/dL Normal 0-100 [facility] Comment on above: Result Comment: LDL ATP III CLASSIFICATION LDL less than 100 mg/dL Optimal LDL 100-129 mg/dL Near or above optimal LDL 130-159 mg/dL Borderline high LDL 160-189 mg/dL High LDL greater than 189 mg/dL Very high Performed By: #### V [id number], TSH3 wRFLX, LIPID #### [facility] [address] Triglyceride w/Reflex 86 mg/dL Normal 0-149 [facility] Comment on above: Result Comment: TRIG ATP III CLASSIFICATION TRIG less than 150 mg/dL Normal TRIG 150-199 mg/dL Borderline high TRIG 200-500 mg/dL High TRIG greater than 500 mg/dL Very high Standard traceable to the Center for Disease Conrtrol and Prevention (CDC) test method. Performed By: #### V [id number], TSH3 wRFLX, LIPID #### [facility] [address] [place] [id number] [facility] VLDL CHOLESTEROL 17 mg/dL Normal [facility] Comment on above: Performed By: #### V [id number], TSH3 wRFLX, LIPID #### [facility] [address] [place] [id number] [place] Serum or plasma high density lipoprotein (HDL) cholesterol measurementOrdered By: Shubham Ding on 08-04-2022 Cholesterol in HDL [Mass/Vol] 47 mg/dL 29-71 [facility] Comment on above: HDL CHOL ATP-III CLA SSIFICATION Cardiovascular RiskHDL > or equal to 60 mg/dL LOWHDL < 40 mg/dL HIGH Serum or plasma total choles terol/high density lipoprotein (HDL) cholesterol mass ratOrdered By: Shubham Ding on 08-04-2022 Cholesterol.total/Abi sterol in HDL [Mass ratio] 2.8 {ratio} <5.0 [facility] Thyroid Stim Hormone w/Rflxo n 08-04-2022 Thyroid Stim Hormone w/Rflx 0.91 u[iU]/mL Normal 0.45-5.33 [facility] Comment on above: Performed By: #### V [id number], TSH3 wRFLX, LIPID #### [facility] [address] Thyrotropin [Units/volume] i n Serum or PlasmaOrdered By: Shubham Timur on 08-04-2022 TSH Qn 0.91 m[IU]/L 0.45-5.33 [facility] Triglyceride [Mass/volume] i n Serum or PlasmaOrdered By: [facility] Timur on 08-04-2022 Triglyceride [Mass/Vol] 86 mg/dL 0-149 [facility] Comment on above: TRIG ATP III CLASSIF ICATIONTRIG less than 150 mg/dL NormalTRIG 150-199 mg/dL Borderline highTRIG 200-500 mg/dL High TRIG greater than 500 mg/dL Very highStandard traceable to the Center for Disease Conrtrol and Prevention (CDC) test method. Vitamin D 25 Hydroxy Totalon 08-04-2022 Vitamin D 25 Hydroxy Total 46.3 ng/mL Normal 30-100 [facility] Comment on above: Result Comment: GREY MIN D STATUS 25(OH)VITAMIN D RANGE (ng/mL) Deficient <20 Insufficient 20 to <30 Sufficient 30 to 100 Reference: Richy MF,Al [place], Yvonne RODRIGUEZ, et al. Evaluation,treatment, and prevention of vitamin D deficiency; an Endocrine Society clinical practice guideline. JCEM. 2010; 96(7):1911-30. PERFORMED BY: [place] [address] PATHOLOGIST SECURITY DIRECTOR HANNY WEAVER M.D. Performed By: #### V [id number], TSH3 wRFLX, LIPID #### [facility] [address] Vitamin D+Metabolites [Mass/ volume] in Serum or PlasmaOrdered By: Shubham Ding on 08-04-2022 Vitamin D+Metabolites [Mass/Vol] 46.3 ng/mL 30-100 [facility] Comment on above: VITAMIN D STATUS 25( [place])VITAMIN D RANGE (ng/mL) Deficient <20 Insufficient 20 to <30Sufficient 30 to 100Reference: Richy MF,Al [place], Yvonne RODRIGUEZ, et al. Evaluation,treatment, and prevention of vitamin D deficiency; an Endocrine Society clinical practice guideline. JCEM. 2010; 96(9):1911-30. Alanine aminotransferase [En zymatic activity/volume] in Serum or PlasmaOrdered By: Christiano Phelps on 08-03-2022 ALT [Catalytic activity/Vol] 26 U/L 7-52 [facility] Albumin [Mass/volume] in Ser um or Plasma by Bromocresol green (BCG) dye binding methoOrdered By: Christiano Phelps on 08-03-2022 Albumin BCG dye [Mass/Vol] 3.9 g/dL 3.5-5.7 [facility] Alkaline phosphatase [Enzyma tic activity/volume] in Serum or PlasmaOrdered By: Christiano Phelps on 08-03-2022 ALP [Catalytic activity/Vol] 64 U/L 34-104 [facility] Amphetamine Screen Ql (U)Ord ered By: Christiano Phelps on 08-03-2022 Amphetamines Ql (U) Negative Negative [facility] Aspartate aminotransferase [ Enzymatic activity/volume] in Serum or PlasmaOrdered By: Christiano Phelps on 08-03-2022 AST [Catalytic activity/Vol] 19 U/L 13-39 [facility] Barbiturates [Presence] in U rine by Screen methodOrdered By: Christiano Phelps on 08-03-2022 Barbiturates Screen Ql (U) Negative Negative [facility] Basophils Auto (Bld) [#/Vol] Ordered By: Christiano Phelps on 08-03-2022 Basophils (Bld) [#/Vol] 0.0 10*3/uL 0.0-0.2 [facility] Basophils/100 WBC Auto (Bld) Ordered By: Christiano Phelps on 08-03-2022 Basophils/100 WBC (Bld) 0.3 % . [facility] Benzodiazepines Screen Ql (U )Ordered By: Christiano Phelps on 08-03-2022 Benzodiazepines Ql (U) Negative Negative [facility] Benzoylecgonine [Presence] i n Urine by Screen methodOrdered By: Christiano Phelps on 08-03-2022 Benzoylecgonine Screen Ql (U) Negative Negative [facility] Bilirubin Test strip Ql (U)O rdered By: Christiano Phelps on 08-03-2022 Bilirubin Ql (U) Negative Negative [facility] Bilirubin.total [Mass/volume ] in Serum or PlasmaOrdered By: Christiano Phelps on 08-03-2022 Bilirubin [Mass/Vol] 0.4 mg/dL 0.3-1.0 [facility] Calcium [Mass/volume] in Ser um or PlasmaOrdered By: Christiano Phelps on 08-03-2022 Calcium [Mass/Vol] 8.9 mg/dL 8.6-10.3 [facility] Cannabinoids [Presence] in U rine by Screen methodOrdered By: Christiano Phelps on 08-03-2022 Cannabinoids Screen Ql (U) Positive Negative [facility] Comment on above: These are unconfirme d results and should not be used for legal purposes. Drug Cut-Off Concentration: AMPH 1000 ng/mL DEANGELO 200 ng/mL BEATRIZ 200 ng/mL COCM 300 ng/mL OP 300 ng/mL PCP 25 ng/mL THC 20 ng/mL Carbon dioxide, total [Moles /volume] in Serum or PlasmaOrdered By: Christiano Phelps on 08-03-2022 CO2 [Moles/Vol] 32.6 mmol/L 21.0-31.0 [facility] Chloride [Moles/volume] in S messi or PlasmaOrdered By: Christiano Phelps on 08-03-2022 Chloride [Moles/Vol] 104 mmol/L 98-107 [facility] Color Auto (U)Ordered By: Radames Phelps on 08-03-2022 Color (U) Yellow Yellow [facility] Complete Blood Count Auto Di ffon 08-03-2022 Basophils (Bld) [#/Vol] 0.0 10*3/uL Normal 0.0-0.2 [facility] Comment on above: Result Comment: PERF ORMED BY: [place] [address] PATHOLOGIST SECURITY DIRECTOR HANNY WEAVER M.D. Performed By: #### C MP, CBC, ETOH #### [facility] [address] [place] [address] [place] Basophils/100 WBC (Bld) 0.3 % Normal . [facility] Comment on above: Performed By: #### C MP, CBC, ETOH #### [place] [address] [place] Eosinophils (Bld) [#/Vol] 0.1 10*3/uL Normal 0.0-0.45 [facility] Comment on above: Performed By: #### C MP, CBC, ETOH #### [place] [address] [place] Eosinophils/100 WBC (Bld) 1.7 % Normal . [facility] Comment on above: Performed By: #### C MP, CBC, ETOH #### [address] Erythrocyte distribution width (RBC) [Ratio] 13.5 % Normal 12.0-14.8 [facility] Comment on above: Performed By: #### C MP, CBC, ETOH #### [address] Hematocrit (Bld) [Volume fraction] 43.8 % Normal 38.8-50.0 [facility] Comment on above: Performed By: #### C MP, CBC, ETOH #### [facility] [address] [place] [address] [place] Hemoglobin (Bld) [Mass/Vol] 14.6 g/dL Normal 13.0-17.0 [facility] Comment on above: Performed By: #### C MP, CBC, ETOH #### [place] [address] [place] Lymphocytes (Bld) [#/Vol] 1.2 10*3/uL Normal 1.00-4.8 [facility] Comment on above: Performed By: #### C MP, CBC, ETOH #### [facility] [address] Lymphocytes/100 WBC (Bld) 23.9 % Normal . [facility] Comment on above: Performed By: #### C MP, CBC, ETOH #### [facility] [address] MCH (RBC) [Entitic mass] 28.8 pg Normal 27.5-35.2 [facility] Comment on above: Performed By: #### C MP, CBC, ETOH #### [address] MCV (RBC) [Entitic vol] 86.2 fL Normal 83.5-101 [facility] Comment on above: Performed By: #### C MP, CBC, ETOH #### [address] Mean Corpuscular HGB Conc 33.5 g/dL Normal 32.5-35.6 [facility] Comment on above: Performed By: #### C MP, CBC, ETOH #### [place] [address] [place] Monocytes (Bld) [#/Vol] 0.4 10*3/uL Normal 0.0-0.8 [facility] Comment on above: Performed By: #### C MP, CBC, ETOH #### [place] [address] [place] Monocytes/100 WBC (Bld) 18.07 % Normal 0.00-20.00 [facility] Comment on above: Performed By: #### C MP, CBC, ETOH #### [place] [address] [place] Monocytes/100 WBC (Bld) 8.3 % Normal . [facility] Comment on above: Performed By: #### C MP, CBC, ETOH #### [address] Neutrophils (Bld) [#/Vol] 3.4 10*3/uL Normal 1.8-7.7 [facility] Comment on above: Performed By: #### C MP, CBC, ETOH #### [address] Neutrophils/100 WBC (Bld) 65.8 % Normal . [facility] Comment on above: Performed By: #### C MP, CBC, ETOH #### [address] NRBC% 0.2 /100{WBC} Normal 0-0.5 [facility] Comment on above: Performed By: #### C MP, CBC, ETOH #### [address] Platelet mean volume (Bld) [Entitic vol] 8.8 fL Normal 6.6-10.1 [facility] Comment on above: Performed By: #### C MP, CBC, ETOH #### [address] Platelets (Bld) [#/Vol] 201 10*3/uL Normal 150-450 [facility] Comment on above: Performed By: #### C MP, CBC, ETOH #### [address] RBC (Bld) [#/Vol] 5.08 10*6/uL Normal 3.90-5.60 [facility] Comment on above: Performed By: #### C MP, CBC, ETOH #### [address] WBC (Bld) [#/Vol] 5.2 10*3/uL Normal 4.1-10.5 [facility] Comment on above: Performed By: #### C MP, CBC, ETOH #### [address] Comprehensive Metabolic Pane karan 08-03-2022 Albumin [Mass/Vol] 3.9 g/dL Normal 3.5-5.7 [facility] Comment on above: Performed By: #### C MP, CBC, ETOH #### [facility] [address] [place] [address] [place] Albumin/Globulin [Mass ratio] 1.4 {ratio} Normal [facility] Comment on above: Performed By: #### C MP, CBC, ETOH #### [facility] [address] ALP [Catalytic activity/Vol] 64 U/L Normal 34-104 [facility] Comment on above: Performed By: #### C MP, CBC, ETOH #### [facility] [address] ALT [Catalytic activity/Vol] 26 U/L Normal 7-52 [facility] Comment on above: Performed By: #### C MP, CBC, ETOH #### [address] Anion gap [Moles/Vol] 6.4 mmol/L Normal 6.0-15.0 [facility] Comment on above: Performed By: #### C MP, CBC, ETOH #### [address] AST [Catalytic activity/Vol] 19 U/L Normal 13-39 [facility] Comment on above: Performed By: #### C MP, CBC, ETOH #### [address] Bilirubin [Mass/Vol] 0.4 mg/dL Normal 0.3-1.0 [facility] Comment on above: Performed By: #### C MP, CBC, ETOH #### [facility] [address] [place] [address] [place] Calcium [Mass/Vol] 8.9 mg/dL Normal 8.6-10.3 [facility] Comment on above: Performed By: #### C MP, CBC, ETOH #### [place] [address] [place] Chloride [Moles/Vol] 104 mmol/L Normal 98-107 [facility] Comment on above: Performed By: #### C MP, CBC, ETOH #### [place] [address] [place] CO2 [Moles/Vol] 32.6 mmol/L High 21.0-31.0 [facility] Comment on above: Performed By: #### C MP, CBC, ETOH #### [address] Creatinine [Mass/Vol] 0.77 mg/dL Normal 0.70-1.30 [facility] Comment on above: Performed By: #### C MP, CBC, ETOH #### [address] Creatinine Clr Calc Pharmacy 144.27 Normal [facility] Comment on above: Result Comment: PERF ORMED BY: [place] [address] PATHOLOGIST SECURITY DIRECTOR HANNY WEAVER M.D. Performed By: #### C MP, CBC, ETOH #### [address] GFR/1.73 sq M.predicted MDRD (S/P/Bld) [Vol rate/Area] mL/min/{1.73_m2} [facility] Comment on above: Performed By: #### C MP, CBC, ETOH #### [address] Globulin (S) [Mass/Vol] 2.7 g/dL Normal [facility] Comment on above: Performed By: #### C MP, CBC, ETOH #### [address] Glucose [Mass/Vol] 86 mg/dL Normal 70-100 [facility] Comment on above: Result Comment: [place] Glucose Reference Range is dependent on time and content of last meal. Glucose of more than 200 mg/dL in a nonstressed, ambulatory subject supports the diagnosis of Diabetes Mellitus. ADA recommended reference range Performed By: #### C MP, CBC, ETOH #### [address] Potassium [Moles/Vol] 4.0 mmol/L Normal 3.5-5.1 [facility] Comment on above: Performed By: #### C MP, CBC, ETOH #### [facility] [address] [place] [address] [place] Protein [Mass/Vol] 6.6 g/dL Normal 6.4-8.9 [facility] Comment on above: Performed By: #### C MP, CBC, ETOH #### [facility] [address] [place] [address] [place] Sodium [Moles/Vol] 139 mmol/L Normal 136-145 [facility] Comment on above: Performed By: #### C MP, CBC, ETOH #### [facility] [address] Urea nitrogen [Mass/Vol] 12 mg/dL Normal 7-25 [facility] Comment on above: Performed By: #### C MP, CBC, ETOH #### [facility] [address] Creatinine [Mass/volume] in Serum or PlasmaOrdered By: Christiano Phelps on 08-03-2022 Creatinine [Mass/Vol] 0.77 mg/dL 0.70-1.30 [facility] Drug Screen,Urineon 08-04-19 Amphetamine Screen,Urine Negative Normal Negative [facility] Comment on above: Performed By: #### U A, URDS #### [facility] [address] [place] [address] [place] Barbiturate Screen,Urine Negative Normal Negative [facility] Comment on above: Performed By: #### U A, URDS #### [place] [address] [place] Benzodiazepines Screen,Urine Negative Normal Negative [facility] Comment on above: Performed By: #### U A, URDS #### [place] [address] [place] Cannabinoid Screen,Urine Positive High Negative [facility] Comment on above: Result Comment: Thes e are unconfirmed results and should not be used for legal purposes. Drug Cut-Off Concentration: AMPH 1000 ng/mL DEANGELO 200 ng/mL BEATRIZ 200 ng/mL COCM 300 ng/mL OP 300 ng/mL PCP 25 ng/mL THC 20 ng/mL PERFORMED BY: [place] [address] PATHOLOGIST SECURITY DIRECTOR HANNY WEAVER M.D. Performed By: #### U A, URDS #### [address] Cocaine Screen,Urine Negative Normal Negative [facility] Comment on above: Performed By: #### U A, URDS #### [address] Opiate Screen,Urine Negative Normal Negative [facility] Comment on above: Performed By: #### U A, URDS #### [address] Phencyclidine Screen,Urine Negative Normal Negative [facility] Comment on above: Performed By: #### U A, URDS #### [address] ECG 12 lead ECGon 08-03-2022 ECG 12 lead ECG [facility] [address] [place] [address] Electrocardiograph Report Signed Patient: Betty Rosenberg MR#: [id number] 140 : 2000 Acct:[id number] Age/Sex: 21 / M ADM Date: 08/03/22 Loc: Room: [address] [place] [address] Type: ADM IN Attending Dr: Shubham Ding MD Ordering Provider: Shubham Ding MD Date of Service: 08/03/22 ECG/ECG 12 lead ECG: medications Copies to: Test Reason : Blood Pressure : / mmHG Vent. Rate : 068 BPM Atrial Rate : 068 BPM P-R Int : 126 ms QRS Dur : 080 ms QT Int : 378 ms P-R-T Axes : 054 080 050 degrees QTc Int : 401 ms Normal sinus rhythm with sinus arrhythmia Normal ECG No previous ECGs available Confirmed by PRINCESS SMALLS MD ([id number]) on 08/03/2022 4:30:06 PM Referred By: Electronically Signed By:PRINCESS SMALLS MD Transcribed By: GAVIN Signed By Princess Smalls MD 0 08/03/22 1630 Normal [facility] Eosinophils Auto (Bld) [#/Vo l]Ordered By: Christiano Phelps on 08-03-2022 Eosinophils (Bld) [#/Vol] 0.1 10*3/uL 0.0-0.45 [facility] Eosinophils/100 WBC Auto (Bl d)Ordered By: Christiano Phelps on 08-03-2022 Eosinophils/100 WBC (Bld) 1.7 % . [facility] Erythrocyte distribution wid th Auto (RBC) [Ratio]Ordered By: Christiano Phelps on 08-03-2022 Erythrocyte distribution width (RBC) [Ratio] 13.5 % 12.0-14.8 [facility] Ethanol [Mass/volume] in Ser um or PlasmaOrdered By: Christiano Phelps on 08-03-2022 Ethanol [Mass/Vol] mg/dL [facility] Ethanol [Mass/Vol] TNP [facility] Comment on above: Test not performed Ethyl Alcohol Profileon 07-16 Ethanol [Mass/Vol] mg/dL Normal [facility] Comment on above: Performed By: #### C MP, CBC, ETOH #### [facility] [address] Percent Ethanol Not performed Normal [facility] Comment on above: Result Comment: PERF ORMED BY: [place] [address] PATHOLOGIST SECURITY DIRECTOR HANNY WEAVER M.D. Performed By: #### C MP, CBC, ETOH #### [facility] [address] [place] [address] [place] Globulin Calc (S) [Mass/Vol] Ordered By: Christiano Phelps on 08-03-2022 Globulin (S) [Mass/Vol] 2.7 g/dL [facility] Glucose [Mass/volume] in Ser um or PlasmaOrdered By: Christiano Phelps on 08-03-2022 Glucose [Mass/Vol] 86 mg/dL 70-100 [facility] Comment on above: ADA recommended refe rence rangeRandom Glucose Reference Range is dependent on time and content of last meal. Glucose of more than 200 mg/dL in a nonstressed, ambulatory subject supports the diagnosis of Diabetes Mellitus. Hematocrit Auto (Bld) [Volum e fraction]Ordered By: Christiano Phelps on 08-03-2022 Hematocrit (Bld) [Volume fraction] 43.8 % 38.8-50.0 [facility] Hemoglobin [Mass/volume] in BloodOrdered By: Christiano Phelps on 08-03-2022 Hemoglobin (Bld) [Mass/Vol] 14.6 g/dL 13.0-17.0 [facility] Ketones Auto test strip (U) [Mass/Vol]Ordered By: Christiano Phelps on 08-03-2022 Ketones (U) [Mass/Vol] Trace Negative Fi [facility] Leukocytes [#/volume] correc michael for nucleated erythrocytes in Blood by Automated counOrdered By: Christiano Phelps on 08-03-2022 WBC corrected for nucl RBC Auto (Bld) [#/Vol] 5.2 10*3/uL 4.1-10.5 [facility] Lymphocytes Auto (Bld) [#/Vo l]Ordered By: Christiano Phelps on 08-03-2022 Lymphocytes (Bld) [#/Vol] 1.2 10*3/uL 1.00-4.8 [facility] Lymphocytes/100 WBC Auto (Bl d)Ordered By: Christiano Phelps on 08-03-2022 Lymphocytes/100 WBC (Bld) 23.9 % . [facility] MCH Auto (RBC) [Entitic mass ]Ordered By: Christiano Phelps on 08-03-2022 MCH (RBC) [Entitic mass] 28.8 pg 27.5-35.2 [facility] MCHC Auto (RBC) [Mass/Vol]Or dered By: Christiano Phelps on 08-03-2022 MCHC (RBC) [Mass/Vol] 33.5 g/dL 32.5-35.6 [facility] MCV Auto (RBC) [Entitic vol] Ordered By: Christiano Phelps on 08-03-2022 MCV (RBC) [Entitic vol] 86.2 fL 83.5-101 [facility] Monocyte distribution width [Entitic volume] in Blood by AutomatedOrdered By: Christiano Phelps on 08-03-2022 Monocyte distribution width Auto (Bld) [Entitic vol] 18.07 % 0.00-20.00 [facility] Monocytes Auto (Bld) [#/Vol] Ordered By: Christiano Phelps on 08-03-2022 Monocytes (Bld) [#/Vol] 0.4 10*3/uL 0.0-0.8 [facility] Monocytes/100 WBC Auto (Bld) Ordered By: Christiano Phelps on 08-03-2022 Monocytes/100 WBC (Bld) 8.3 % . [facility] Neutrophils Auto (Bld) [#/Vo l]Ordered By: Christiano Phelps on 08-03-2022 Neutrophils (Bld) [#/Vol] 3.4 10*3/uL 1.8-7.7 [facility] Neutrophils/100 WBC Auto (Bl d)Ordered By: Christiano Phelps on 08-03-2022 Neutrophils/100 WBC (Bld) 65.8 % . [facility] Nitrite Test strip Ql (U)Ord ered By: Christiano Phelps on 08-03-2022 Nitrite Ql (U) Negative Negative [facility] No Panel InformationOrdered By: Christiano Phelps on 08-03-2022 Estimated GFR (CKD-EPI) > 60.0 mL/Min [facility] Creatinine Clearance (Chem 144.27 [facility] Nucleated erythrocytes [Pres ence] in Blood by Automated countOrdered By: Christiano Phelps on 08-03-2022 Nucleated RBC Auto Ql (Bld) 0.2 /100{WBC} 0-0.5 [facility] Opiates [Presence] in Urine by Screen methodOrdered By: Christiano Phelps on 08-03-2022 Opiates Screen Ql (U) Negative Negative [facility] Phencyclidine Screen Ql (U)O rdered By: Christiano Phelps on 08-03-2022 Phencyclidine Ql (U) Negative Negative [facility] Platelet mean volume Auto (B ld) [Entitic vol]Ordered By: Christiano Phelps on 08-03-2022 Platelet mean volume (Bld) [Entitic vol] 8.8 fL 6.6-10.1 [facility] Platelets Auto (Bld) [#/Vol] Ordered By: Christiano Phelps on 08-03-2022 Platelets (Bld) [#/Vol] 201 10*3/uL 150-450 [facility] Potassium [Moles/volume] in Serum or PlasmaOrdered By: Christiano Phelps on 08-03-2022 Potassium [Moles/Vol] 4.0 mmol/L 3.5-5.1 [facility] Protein Auto test strip (U) [Mass/Vol]Ordered By: Christiano Phelps on 08-03-2022 Protein (U) [Mass/Vol] Negative Negative [facility] Protein [Mass/volume] in Ser um or PlasmaOrdered By: Christiano Phelps on 08-03-2022 Protein [Mass/Vol] 6.6 g/dL 6.4-8.9 [facility] RBC Auto (Bld) [#/Vol]Ordere d By: Christiano Phelps on 08-03-2022 RBC (Bld) [#/Vol] 5.08 10*6/uL 3.90-5.60 [facility] Serum or plasma albumin/glob ulin mass ratioOrdered By: Christiano Phelps on 08-03-2022 Albumin/Globulin [Mass ratio] 1.4 {ratio} [facility] Serum or plasma anion gap de terminationOrdered By: Christiano Phelps on 08-03-2022 Anion gap [Moles/Vol] 6.4 mmol/L 6.0-15.0 [facility] Sodium [Moles/volume] in Ser um or PlasmaOrdered By: Christiano Phelps on 08-03-2022 Sodium [Moles/Vol] 139 mmol/L 136-145 [facility] Specific gravity Auto test s trip (U) [Rel density]Ordered By: Christiano Phelps on 08-03-2022 Specific gravity (U) [Rel density] 1.023 1.001-1.030 [facility] Urea nitrogen [Mass/volume] in Serum or PlasmaOrdered By: Christiano Phelps on 08-03-2022 Urea nitrogen [Mass/Vol] 12 mg/dL 10-09 [facility] Urinalysison 08-03-2022 Appearance (U) Clear Normal Clear [facility] Comment on above: Order Comment: Name Collection Type:: Clean-Voided Midstream Performed By: #### U A, URDS #### [facility] [address] [place] [address] [place] Bilirubin,Urine Negative Normal Negative [facility] Comment on above: Order Comment: Name Collection Type:: Clean-Voided Midstream Performed By: #### U A, URDS #### [facility] [address] [place] [address] [place] Color (U) Yellow Normal Yellow [facility] Comment on above: Order Comment: Name Collection Type:: Clean-Voided Midstream Performed By: #### U A, URDS #### [facility] [address] [place] [address] [place] Glucose Ql (U) Normal Normal Normal [facility] Comment on above: Order Comment: Name Collection Type:: Clean-Voided Midstream Performed By: #### U A, URDS #### [facility] [address] [place] [address] [place] Ketones Ql (U) Trace High Negative [facility] Comment on above: Order Comment: Name Collection Type:: Clean-Voided Midstream Performed By: #### U A, URDS #### [facility] [address] [place] [address] [place] Leukocyte esterase Test strip Ql (U) Negative Normal Negative [facility] Comment on above: Order Comment: Name Collection Type:: Clean-Voided Midstream Performed By: #### U A, URDS #### [facility] [address] [place] [address] [place] Nitrite,Urine Negative Normal Negative [facility] Comment on above: Order Comment: Name Collection Type:: Clean-Voided Midstream Performed By: #### U A, URDS #### [facility] [address] [place] [id number] [place] Occult Blood,Urine Negative Normal Negative [facility] Comment on above: Order Comment: Name Collection Type:: Clean-Voided Midstream Result Comment: PERF ORMED BY: [place] [address] PATHOLOGIST SECURITY DIRECTOR HANNY WEAVER M.D. Performed By: #### U A, URDS #### [facility] [address] [place] [address] pH (U) 7.5 [pH] Normal 5.0-9.0 [facility] Comment on above: Order Comment: Name Collection Type:: Clean-Voided Midstream Performed By: #### U A, URDS #### [address] Protein,Urine Negative Normal Negative [facility] Comment on above: Order Comment: Name Collection Type:: Clean-Voided Midstream Performed By: #### U A, URDS #### [address] Specificy [place],Urine 1.023 Normal 1.001-1.030 [facility] Comment on above: Order Comment: Name Collection Type:: Clean-Voided Midstream Performed By: #### U A, URDS #### [facility] [address] [place] [address] Urobilinogen,Urine Normal Normal Normal [facility] Comment on above: Order Comment: Name Collection Type:: Clean-Voided Midstream Performed By: #### U A, URDS #### [facility] [address] [place] [address] Urine clarity by refractomet ry automatedOrdered By: Christiano Phelps on 08-03-2022 Clarity Refractometry automated (U) Clear Clear [facility] Urine glucose measurement by automated test strip (mass/volume)Ordered By: Christiano Phelps on 08-03-2022 Glucose Auto test strip (U) [Mass/Vol] Normal mg/dL Normal [facility] Urine hemoglobin detection b y automated test stripOrdered By: Christiano Phelps on 08-03-2022 Hemoglobin Auto test strip Ql (U) Negative Negative [facility] Urine leukocyte esterase det ection by automated test stripOrdered By: Christiano Manzozi on 08-03-2022 Leukocyte esterase Auto test strip Ql (U) Negative Negative [facility] Urobilinogen Auto test strip (U) [Mass/Vol]Ordered By: Christiano Manzozi on 08-03-2022 Urobilinogen (U) [Mass/Vol] Normal mg/dL Normal [facility] WBC Auto (Bld) [#/Vol]Ordere d By: Christiano Manzozi on 08-03-2022 WBC (Bld) [#/Vol] 5.2 10*3/uL 4.1-10.5 [facility] pH Auto test strip (U)Ordere d By: Christiano Manzozi on 08-03-2022 pH (U) 7.5 [pH] 5.0-9.0 [facility] Progress Noteson 07-16-2022 Bacteriology Professor Authentication Interface Message Text ----- Saturday, July 16, 2022 at 11:59:28 AM ----- ----- Provider: Noreen Menard DMD -- Clinic: [place] ----- INITIAL/COMPREHENSIVE EXAM Patient presents for an Initial Examination. Reviewed patient's medical history. Patient has a history of: Patient sees psychiatrist for mental health. Medications checked on Epic. No contraindications, patient is ready for treatment. Patient's chief complaint: Comp Exam Pain Scale: 4/10 Radiographs taken today were: 4 Bitewings Clinical Examination reveals: Decay Soft tissue evaluation: Within Normal Limits TMJ evaluation: Normal TMJ Completed current status of dentition on the charting. Went over needs and treatment plan options with the patient. OHI were discussed with the patient. Written Instructions/AVS were also handed to the patient. Pt Concern: Full Exam was successfully done. Patient consented to the treatment plan. PRIOR: Not needed NOTE: Patient presented for comprehensive exam today. BWs taken. Pano exists from May of this year. Patient has generalized caries, decalcification, and irritated gingiva. He also has generalized calculus and plaque build up. Patient reported that #15 bothers him some times when he eats sweets. Clinically only a buccal shell remains of #15 - to restore it tooth would require RCT, post and core, and crown. Patient wants to EXT the tooth. Patient said by time I get back here to get the bottom tooth fixed too it'll also need yanked out. In reference to #18, which does have large caries present. Rx: Prevident 5000 and instructed patient on how to use it. Patient asked if he would be better off just having all his teeth taken out and having all implants put in because he has not been able to eat in years due to pain. He described a pinched nerve sensation or possible arthritis over his right eye. He also reported that he is anorexic. Explained to patient that since he is so young, he is not done physically growing yet for implants or implant retained prostheses. Also explained that he should start taking care of his teeth and once we have all of his cavities taken care of, #15 EXT, and continued treatment for his TMJ he should start to feel better. When asked about his anorexia patient reported that he sees a psychiatrist, but every time the doctor sends him to a counselor to talk to they commit him to the psych donnelly. He also reported that his father, who brings him, is dying and will most likely be in a year to a year and a half. Informed patient that I am going to discuss a pause on his occlusal guard fabrication due to the amount of work he needs to have done so that it will fit - will talk to Dr. Danielson about his case. Possible chance that treatment should not be delayed due to patient's TMJ issues. Next Visit: Restorative - as much as patient can tolerate - start with #18 and other LL camryn. Okay for patient to be seen by [facility] Normal [facility] Progress Noteson 07-05-2022 Bacteriology Professor Authentication Interface Message Text ----- June at 11:14:30 AM ----- ----- Provider: Tessa Laboy, Fellow -- Clinic: [place] ----- trigger point injections cycle 1 # 2 Referring physician: Dr. Cherise Ramirez HPI: Patient first seen by OFP 06/14/2022. TPI done then, with immediate and medium-term lasting relief of pain and endorsed alleviation of mood. Patient has since been evaluated by psychiatry again for SI endorsed with a counselor. Patient reports having a psychiatrist (not within S) but no consistent counseling care. Discussed counseling protocol with SI. Strongly recommend pursuing continuous counseling + meds care, suggest raising with established psychiatrist. Has a history of depressive episodes with SI, only sporadic psych care. On exam today, + pain 8/10 + Fine rash on hands and neck, patient reports it's a side effect of duloxetine and that prescribing provider is aware. Strongly recommend pursuing re-evaluation and consideration for switching meds dt AEs Has not pursued PT yet - missed appointment. Has not pursued dental care yet - missed appointment. Appears to experience transportation difficulties, has to be driven out here by dad Impression: 1. F45.8 bruxism 2. M79.11 myalgia mastication R > L 3. M62.48 probable contracture R 4. 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 G44.8 probable TMD associated headache 6. M79.12 cervical myalgia R >> L 7. G50.8 hypo vs hyperesthesia R V2-V3 unreliably reproducible 8. R45.851 recurrent depressive episodes with SI Plan: 1. ESPANA - impressed today 2. TPI - cycle 1 #2 done today 4. continue baclofen 10mg TID 5. continue voltaren over R TMJ topically BID 6. PT - pursue 7. consider nutrition counseling 8. consider behavioral and SW counseling Plan: Trigger point injections: done today, prep with alcohol, IFC signed. Explained risks and benefits, including pain, swelling, hemorrhage, CN VII involvement. Mepivacaine 3% on bilateral, masseter (0.4 cc), temporalis tendon extraoral (0.1 cc), temporalis muscle (0.1 cc), temporalis tendon intraoral (0.2 cc), and occipital (0.3 cc) Rested 5 min to observe for AEs. NOTE: Does report near immediate relief in pinched nerve and carpal tunnel sensation; dismissed in good spirits Discussion/Counseling : AVS provided, questions answered NV: TPI cycle 1 #3, deliver ESPANA if ready Teaching Attending Note: I saw and evaluated the patient. I personally obtained the valencia and critical portions of the history and physical exam. I reviewed the resident's /fellow's documentation and discussed the patient with the resident. I agree with the resident's medical decision making as documented in the resident's note. ----- Signed on Wednesday, July 06, 2022 at 5:32:10 AM ----- ----- Provider: [id number] Crzu DMD -- Clinic: [place] ----- Normal [facility] Progress Noteson 06-18-2022 Bacteriology Professor Authentication Interface Message Text Follow up incorrectly scheduled. Patient thought appointment was with Dr. Danielson. Directed patient to call Dentistry to schedule follow up appointment. Cherise Ramirez DMD, MD Normal [facility] Progress Noteson 06-14-2022 Bacteriology Professor Authentication Interface Message Text ----- May at 1:34:44 PM ----- ----- Provider: [id number] Tessa Laboy, Candy -- Clinic: [place] ----- Chief complaint - Patient presented with chief complaint: I have been in pain for years Referring physician: Cherise Ramirez MD, DMD Notably admitted by psych ED after visit with OMFS re: SI and now discharged. Describes pain as pinched nerve in the neck and carpal tunnel on R [does not appear to have formal diagnosis], was told elsewhere that the joint on R is out of alignment. OMFS impression myofascial pain, TMJ WNL. Patient's commute to [facility] is 1.5 hours Location - bilateral jaw, face, ear, and neck R > L Appearance - nc wn, nad Chronology - for years , attributes onset to multiple dental extractions Precipitating - attributes onset to multiple dental extractions Quality - pulling on bones, pinched nerve sensation Intensity - 6-8/10 Duration - few years Frequency - constant Ameliorating - n/a Aggravating - unable to chew, on soft food diet Associated symptoms - R carpal tunnel Associated pains - R ear - helps to pick R ear with Q tip Headaches - intermittent on R, sometimes behind the eye Family History of CC - n/a Meds - Current - for CC : gabapentin, tylenol Past Treatment/Meds - - seen physical therapy for neck - not currently - flexeril - no perceived efficacy - robaxin - no perceived efficacy Imaging panoramic film: Retained on file and reviewed, no osseous pathology. Possible increased articular space R TMJ. CBCT: None Legal - No legal action in process Sleep duration: 6+ hours Sleep quality: No interruptions Social - endorses cannabis use Habits - denies clenching or grinding PMH: Reviewed and reconciled with [facility]. Meds: Reviewed and reconciled with [facility]. Allergies: Reviewed and reconciled with Epic. EXAM ROS: - CONSTITUTIONAL: Denies weight loss, fever and chills. - HEENT: Denies changes in vision and hearing. - RESPIRATORY: Denies SOB and cough. - CV: Denies palpitations and CP. - GI: Denies abdominal pain, nausea, vomiting and diarrhea. - : Denies dysuria and urinary frequency. - MSK: + carpal tunnel R - SKIN: Denies rash and pruritus. - NEUROLOGICAL: + intermittent headache, denies syncope. - PSYCHIATRIC: Denies recent changes in mood. Of note, was just dismissed from psych ER re: SI PHYSICAL EXAM: GENERAL: Alert and oriented x 3. No acute distress. Well-nourished, well-developed. CONSTITUTIONAL: Height: ft. weight: lbs. Vitals - BP: T: NA P: R: O2: VOICE: Normal RESPIRATION: Breathing comfortably, no stridor. CARDIOVASCULAR: No clubbing/cyanosis/mary ma in hands. EYES: Extraocular movements intact, sclera normal, no scleral icterus, no lesions noted. NEURO: Detailed below. HEAD AND FACE: Symmetric facial features, no masses or lesions, sinuses nontender to palpation. SALIVARY GLANDS: Parotid and submandibular glands normal bilaterally. EARS: Normal external ears, external auditory canals, normal hearing to whispered voice. NOSE: External nose midline, anterior nasal cavity is normal with limited visualization to the anterior aspect of the interior turbinates. No lesions noted. ORAL CAVITY/OROPHARYNX/LIP S: Moist mucous membranes, no lesions noted. Oral hygiene fair to poor NECK/LYMPH NODES: No lymphadenopathy, no thyroid masses. Trachea palpably midline SKIN: Face and neck skin without scars, bruises, or injury PSYCH: Alert and oriented with appropriate mood and affect, appears calm and engaged although is attached to certain ideas about the origins of his pain; has made statements about SI at previous visits but not today; exaggerated statements e.g. maybe I should have all my teeth pulled , unclear whether serious; possibly attention seeking behavior DETAILED EXAM: Cranial Nerves - II through XII grossly intact Detailed CN V: sensory: R: unreliable reporting -- reduced vs. heightened sensation V2, V3 L:Normal Motor: R: Normal L: Normal Two point discrimination: Not done Directionality: Not done Detailed CN VII: motor R: Normal L: Normal Balance/Equilibrium - Finger to nose normal response. Romberg: not performed Neck: stiff, tender to palpation R > L Cervical - NO LAD IOE- tongue scalloping present cheek ridging minor , wear mild missing first molars only started brushing teeth a few years ago reports needing multiple fillings done seeing local dentist, who he likes, in August Occlusion: deep overbite Angle class II R canine R molar II L canine L molar OB/OJ: 5/4 - shifts jaw forward but able to occlude on posterior Midline: Deviated to L 4 mm Deviation/deflection - None ROM - BERT: 38 mm passive: mm active: 45 mm no restriction R lateral:6 mm L lateral: 6 mm protrusion: 3 mm - no restriction, some tension and tenderness Joint palpation: R TMJ dorsal:5/5 la (more content not included)... Normal [facility] Cholesterol [Mass/volume] in Serum or PlasmaOrdered By: Brandon Ca on 06-13-2022 Cholesterol [Mass/Vol] 118 mg/dL 140-200 [facility] Comment on above: Chol less than 200 m g/dl low riskChol 201-239 mg/dl borderline riskChol 240 mg/dl and greater high risk Cholesterol in LDL Calc [Mas s/Vol]Ordered By: Brandon Ca on 06-13-2022 Cholesterol in LDL [Mass/Vol] 66 mg/dL 0-100 [facility] Comment on above: LDL ATP III CLASSIFI CATIONLDL less than 100 mg/dL OptimalLDL 100-129 mg/dL Near or above optimalLDL 130-159 mg/dL Borderline highLDL 160-189 mg/dL HighLDL greater than 189 mg/dL Very high Cholesterol in VLDL Calc [Ma ss/Vol]Ordered By: Brandon Ca on 06-13-2022 Cholesterol in VLDL [Mass/Vol] 10 mg/dL [facility] Lipid Panelon 06-13-2022 Cholesterol [Mass/Vol] 118 mg/dL Low 140-200 [facility] Comment on above: Result Comment: Chol less than 200 mg/dl low risk Chol 201-239 mg/dl borderline risk Chol 240 mg/dl and greater high risk Performed By: #### C MP, CBC, ETOH #### [facility] [address] [place] [id number] [facility] Cholesterol in HDL [Mass/Vol] 42 mg/dL Normal 29-71 [facility] Comment on above: Result Comment: HDL CHOL ATP-III CLASSIFICATION Cardiovascular Risk HDL > or equal to 60 mg/dL LOW HDL < 40 mg/dL HIGH Performed By: #### C MP, CBC, ETOH #### [facility] [address] [place] [address] [facility] Cholesterol.total/Abi sterol in HDL [Mass ratio] 2.8 {ratio} Normal <5.0 [facility] Comment on above: Performed By: #### C MP, CBC, ETOH #### [facility] [address] [place] [id number] [place] LDL Cholesterol,Calculated 66 mg/dL Normal 0-100 [facility] Comment on above: Result Comment: LDL ATP III CLASSIFICATION LDL less than 100 mg/dL Optimal LDL 100-129 mg/dL Near or above optimal LDL 130-159 mg/dL Borderline high LDL 160-189 mg/dL High LDL greater than 189 mg/dL Very high Performed By: #### C MP, CBC, ETOH #### [facility] [address] [place] [address] [place] Triglyceride w/Reflex 52 mg/dL Normal 0-149 [facility] Comment on above: Result Comment: TRIG ATP III CLASSIFICATION TRIG less than 150 mg/dL Normal TRIG 150-199 mg/dL Borderline high TRIG 200-500 mg/dL High TRIG greater than 500 mg/dL Very high Standard traceable to the Center for Disease Conrtrol and Prevention (CDC) test method. Performed By: #### C MP, CBC, ETOH #### [facility] [address] VLDL CHOLESTEROL 10 mg/dL Normal [facility] Comment on above: Performed By: #### C MP, CBC, ETOH #### [facility] [address] Serum or plasma high density lipoprotein (HDL) cholesterol measurementOrdered By: Brandon Ca on 06-13-2022 Cholesterol in HDL [Mass/Vol] 42 mg/dL [facility] Comment on above: HDL CHOL ATP-III CLA SSIFICATION Cardiovascular RiskHDL > or equal to 60 mg/dL LOWHDL < 40 mg/dL HIGH Serum or plasma total choles terol/high density lipoprotein (HDL) cholesterol mass ratOrdered By: Brandon Ca on 06-13-2022 Cholesterol.total/Abi sterol in HDL [Mass ratio] 2.8 {ratio} <5.0 [facility] Thyroid Stim Hormone w/Rflxo n 06-13-2022 Thyroid Stim Hormone w/Rflx 1.03 u[iU]/mL Normal 0.45-5.33 [facility] Comment on above: Performed By: #### C MP, CBC, ETOH #### [facility] [address] [place] [address] Thyrotropin [Units/volume] i n Serum or PlasmaOrdered By: Brandon Ca on 06-13-2022 TSH Qn 1.03 m[IU]/L 0.45-5.33 [facility] Triglyceride [Mass/volume] i n Serum or PlasmaOrdered By: Brandon Ca on 06-13-2022 Triglyceride [Mass/Vol] 52 mg/dL 0-149 [facility] Comment on above: TRIG ATP III CLASSIF ICATIONTRIG less than 150 mg/dL NormalTRIG 150-199 mg/dL Borderline highTRIG 200-500 mg/dL High TRIG greater than 500 mg/dL Very highStandard traceable to the Center for Disease Conrtrol and Prevention (CDC) test method. Vitamin D 25 Hydroxy Totalon 06-13-2022 Vitamin D 25 Hydroxy Total 50.0 ng/mL Normal 30-100 [facility] Comment on above: Result Comment: GREY MIN D STATUS 25([place])VITAMIN D RANGE (ng/mL) Deficient <20 Insufficient 20 to <30 Sufficient 30 to 100 Reference: Al Napier, Yvonne RODRIGUEZ, et al. Evaluation,treatment, and prevention of vitamin D deficiency; an Endocrine Society clinical practice guideline. JCEM. 2010; 96(7):1911-. PERFORMED BY: [facility] [address] [place] [address] PATHOLOGIST SECURITY DIRECTOR HANNY WEAVER M.D. Performed By: #### C MP, CBC, ETOH #### [address] Vitamin D+Metabolites [Mass/ volume] in Serum or PlasmaOrdered By: Brandon Ca on 06-13-2022 Vitamin D+Metabolites [Mass/Vol] 50.0 ng/mL 30-100 [facility] Comment on above: VITAMIN D STATUS 25( [place])VITAMIN D RANGE (ng/mL) Deficient <20 Insufficient 20 to <30Sufficient 30 to 100Reference: Richy BOBBY,Al LUTZ, Yvonne RODRIGUEZ, et al. Evaluation,treatment, and prevention of vitamin D deficiency; an Endocrine Society clinical practice guideline. JCEM. 2010; 96(7):1911-30. ACETAMINOPHENon 06-12-2022 Acetaminophen [Mass/Vol] ug/mL Critically low 10.0-30.0 Comment on above: Performed By: #### A CET, SALYC, ETH, CMP #### [facility] [address] [place] [address] [address] Annabella Lara CBC AUTO DIFFon 06-12-2022 BASO # 0.0 103/ul Normal 0.0-0.1 Comment on above: Performed By: #### C BC #### [facility] [address] [place] [address] [address] Annabella Lara Basophils/100 WBC (Bld) 0.3 % Normal 0.2-2.0 [facility] Comment on above: Performed By: #### C BC #### [facility] [address] [place] [address] Dr. Annabella Lara EO # 0.0 103/ul Normal 0.0-0.7 [facility] Comment on above: Performed By: #### C BC #### [facility] [address] [place] [address] Dr. Annabella Lara Eosinophils/100 WBC (Bld) 0.5 % Critically low 0.9-7.0 [facility] Comment on above: Performed By: #### C BC #### [facility] [address] [place] [address] Dr. Annabella Lara Erythrocyte distribution width (RBC) [Ratio] 12.1 % Normal 11.0-15.0 Comment on above: Performed By: #### C BC #### [facility] [address] [place] [address] Dr. Annabella Lara Hematocrit (Bld) [Volume fraction] 46.8 % Normal 42.0-54.0 Comment on above: Performed By: #### C BC #### [facility] [address] [place] [address] Dr. Annabella Lara Hemoglobin (Bld) [Mass/Vol] 15.9 g/dL Normal 14.0-18.0 Comment on above: Performed By: #### C BC #### [facility] [address] [place] [address] Dr. Annabella Lara IG # 0.02 10e3/ul Normal 0.00-0.03 [facility] Comment on above: Performed By: #### C BC #### [facility] [address] [place] [address] Dr. Annabella Lara IG % 0.3 % Normal 0.0-0.5 [facility] Comment on above: Performed By: #### C BC #### [facility] [address] [place] [address] Dr. Annabella Lara LYMPH # 1.2 103/ul Normal 1.2-3.8 [facility] Comment on above: Performed By: #### C BC #### [facility] [address] [place] [address] Dr. Annabella Lara Lymphocytes/100 WBC (Bld) 15.9 % Critically low 20.5-60.0 Comment on above: Performed By: #### C BC #### [facility] [address] [place] [address] Dr. Annabella Lara MANUAL DIFF REQ NO Normal [facility] Comment on above: Performed By: #### C BC #### [facility] [address] [place] [address] Dr. Annabella Lara MCH (RBC) [Entitic mass] 28.9 pg Normal 25.9-34.0 Comment on above: Performed By: #### C BC #### [facility] [address] [place] [address] Dr. Annabella Lara MCHC (RBC) [Mass/Vol] 34.0 g/dL Normal 29.9-35.2 Comment on above: Performed By: #### C BC #### [facility] [address] [place] [address] Dr. Annabella Lara MCV (RBC) [Entitic vol] 84.9 fL Normal 80.0-94.0 [facility] Comment on above: Performed By: #### C BC #### [facility] [address] [place] [address] Dr. Annabella Lara MONO # 0.4 103/ul Normal 0.3-0.8 Comment on above: Performed By: #### C BC #### [facility] [address] [place] [address] Dr. Annabella Lara Monocytes/100 WBC (Bld) 5.6 % Normal 1.7-12.0 [facility] Comment on above: Performed By: #### C BC #### [facility] [address] [place] [address] Dr. Annabella Lara NEUT # 5.9 103/ul Normal 1.4-6.5 Comment on above: Performed By: #### C BC #### [facility] [address] [place] [address] Dr. Annabella Lara Neutrophils/100 WBC (Bld) 77.4 % Critically high 43.0-75.0 Comment on above: Performed By: #### C BC #### [facility] [address] [place] [address] Dr. Annabella Lara Platelet mean volume (Bld) [Entitic vol] 10.2 fL Normal 9.5-13.5 Comment on above: Performed By: #### C BC #### [facility] [address] [place] [address] Dr. Annabella Lara PLT 231 103/ul Normal 150-450 [facility] Comment on above: Performed By: #### C BC #### [facility] [address] [place] [address] Dr. Annabella Lara RBC 5.51 106/ul Normal 4.70-6.10 [facility] Comment on above: Performed By: #### C BC #### [facility] [address] [place] [address] Dr. Annabella Lara WBC 7.6 103/ul Normal 4.0-11.0 [facility] Comment on above: Performed By: #### C BC #### [facility] [address] [place] [address] Dr. Annabella Lara [facility]-19 PCR [facility]17 SARS-CoV-2 (COVID-19) RNA KATY+probe Ql (Unsp spec) Not detected Normal NOT DETECTED [facility] Comment on above: Result Comment: When diagnostic testing is negative, the possibility of a false negative should be considered in the context of a patient's recent exposures and the presence of clinical signs and symptoms consistent with SARS-CoV-2. This test is not yet approved or cleared by the [place] FDA. When there are no FDA-approved or cleared tests available, and other criteria are met, FDA can make tests available under an emergency access mechanism called an Emergency Use Authorization (EUA). The EUA for this test is supported by the Wall Covering Contractor of Health and Human Service's declaration that circumstances exist to justify the emergency use of in vitro diagnostics for the detection and/or diagnosis of the virus that causes COVID-19. This EUA will remain in effect for the duration of the COVID-19 declaration justifying emergency of IVDs, unless it is terminated or revoked by the FDA (after which the test may no longer be used). Performed By: #### C VDTBH #### [facility] [address] [address] [address] Annabella Lara DRUG SCREEN RAPID (URINE)on 06-12-2022 AMP Negative Normal NEGATIVE [facility] Comment on above: Performed By: #### D RUGRPD ####[facility] [address] [address]Dr. Annabella Lara BAR Negative Normal NEGATIVE [facility] Comment on above: Performed By: #### D RUGRPD ####[facility] [address] [address]Dr. Annabella Lara BUP Negative Normal NEGATIVE [facility] Comment on above: Performed By: #### D RUGRPD ####[facility] [address] [address]Dr. Annabella Lara BZO Negative Normal NEGATIVE [facility] Comment on above: Performed By: #### D RUGRPD ####[facility] [address] [address]Dr. Annabella Lara DEQUAN Negative Normal NEGATIVE [facility] Comment on above: Performed By: #### D RUGRPD ####[facility] [address] [address]Dr. Annabella Lara CUT-OFFS SEE BELOW Normal [facility] Comment on above: Result Comment: AMP (Amphetamine): 500ng/mL, BAR (Barbituates): 200 ng/mL, BZO (Benzodiazepines): 150 ng/mL, BUP (Buprenorphine): 10 ng/mL, DEQUAN (Cocaine): 150 ng/mL, mAMP (Methamphetamine): 500 ng/mL, MTD (Methadone): 200 ng/mL, OPI (Opiates): 100 ng/mL, OXY (Oxycodone): 100 ng/mL, PCP (Phencyclidine): 25 ng/mL, PPX (Propoxyphene): 300 ng/mL, THC (Cannabinoids): 50 ng/mL, TCA (Trycyclic Antidepressants): 300 ng/mL Performed By: #### D RUGRPD ####[facility] [address] [place], [place] [address]Dr. Annabella Lara DRUG CUT HEADER DRUG CLASS TEST SYSTEM CUT-OFF CONCENTRATIONS ARE FOLLOWS: Normal [facility] Comment on above: Performed By: #### D RUGRPD ####[facility] [address] [place], [place] [address]Dr. Annabella Lara mAMP Negative Normal NEGATIVE [facility] Comment on above: Performed By: #### D RUGRPD ####[facility] [address] [place], [place] [address]Dr. Annabella Lara MTD Negative Normal NEGATIVE [facility] Comment on above: Performed By: #### D RUGRPD ####[facility] [address] [place], [place] [address]Dr. Annabella Lara OPI Negative Normal NEGATIVE [facility] Comment on above: Performed By: #### D RUGRPD ####[facility] [address] [place], [place] [address]Dr. Annabella Lara OXY Negative Normal NEGATIVE [facility] Comment on above: Performed By: #### D RUGRPD ####[facility] [address] [place], [place] [address]Dr. Annabella Lara PCP Negative Normal NEGATIVE [facility] Comment on above: Performed By: #### D RUGRPD ####[facility] [address] [place], [place] [address]Dr. Annabella Lara PPX Negative Normal NEGATIVE [facility] Comment on above: Performed By: #### D RUGRPD ####[facility] [address] [place], [place] [address]Dr. Annabella Lara TCA Positive Abnormal NEGATIVE [facility] Comment on above: Performed By: #### D RUGRPD ####[facility] [address] [place], [place] [address]Dr. Annabella Lara THC Positive Abnormal NEGATIVE [facility] Comment on above: Performed By: #### D RUGRPD ####[facility] [address] [address]Dr. Annabella Lara ETHANOL (BLD ALC)on 06-13-19 23 ALC NOTE NOTE: 80 mg/dl is e legal limit for a blood alcohol level Normal Comment on above: Performed By: #### A CET, SALYC, ETH, CMP ####[facility] [address] [address]Dr. Annabella Lara Ethanol [Mass/Vol]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 ZgbbpTPiPD20FGb6JKG7i VwaSFfvvQ2yjUSuZ2h4Ld IhQW15bR46SBlhITLdVtT 3LjZpbjsgbWFy M7emMwElxMBwPbc+PHRhY mxlIHdpZHRoPScxMDAlJy NaqYslAR2iFw7jJYRiHVV vbGxhcHNlOiBj p9buCISyKZfbSJ0stBacZ 9XbbGL6EBBql7p2Lw16cP I+MBNzDXP5aOpsPTlhp17 6UoXxw0pfCII4 aQDvQJgmYJO0H60oe4Q7I BXsPLAhPAA3yBB3zA5raD hmnobnG5SbqYBiPmI2ZJU 4sSWhxP0dyTsb mdgovG4oSvb+T29HWH3TA IFOJK6RTbq5C3LrTgduqM I+ZK27NJWdWK80iFBwtJP gv9omkAx2HiLe VJMwFDV1zJetLJlqn0OfR FCvM44ndKToh2G5XKJsoD qgnDJfJsOhaDY9vR0qFNr puelso5hdtvul Mjfrh2xyfy79aI59K37fC RynXFSsTYC5CFGfDMVvqH feqj0awL5iJk9+ESnwk8q mo5obvAx5ClKz VSTszoIxvAjbEKF5r7FmL v26M5SaqJwug2AwBrc1gd 80eODxb3V9dAN6CGdfUMQ hoG7mOQyyShV2 GEUcYrPtsO43fEDdVDzhE k9xcDmqtDroAL8kMKIrfr uzTLEkpC3xDGPkxONuoDg fHM0cBVScekge t078JvWgNYL1HRYdoXThL 7QqvC2cWsRhYQXeKVPtZ5 ZhjFWrPGieO459CYwoUvZ 9OWJutwYkK2Hd SVNsoTzpNmE7n8Y1Hm3Hj 3GspwxvUKX2REmfIKWbQy Q0FfXqScH3X6VrPem2MBO kgOluTV0oS8Cm YGSxrdyhzmthyZS1CPWyT FNvgF35pDPiEJcgGu5vm6 D8z600SPHcPDHccP62Yj9 udDogMTBwdCBU qH6egkmyz8mmnqqgLeTyH LCsWQl2MZx8MOHvaPreXl CtWPG8SfM6IIX6aYKszD3 mwGcllrvenM9g Oyc+P88zlF7hQRO3BHS1j xjkUWBvotMbQO91EN94G8 RyPjwvdGFibGU+PGRpdiB dsFccRK9qKxIn t6bnq5TuRLtyU5NaTIFpM WsgNiu6MVRwHRM7hZS2sG 3aGWRtFYbwe3A1mMA2G4G kypYidr0zu4kr SDRqBCaoB76lsOMzs6M7S SOdiFJ7VXGrzKnxPsEjlP 93Oyc+KUShkSvqm7TmGgl rd2rqc4ayeQt2 KfUqFZIpkvYleHvaGYQ8b 8BlXk36V87oWJaiWTLwVT RaGQWrKNRwgMuamh8mdN6 wIi8+PGNvbCB3 gPG3rG9pPKDtMuR2IAnuM 614YqPedAEvXfhik2byb1 bvdLf4IlMjWYDxddCvbJa wEVV3b3WsCm38 U67hWUxqYXUlJCUzLBLfL UVrjGkbrm3maZ8bKv7+PC 7wi6mfxv72iX47yFZ+PHR xNVE2eBsgVVyj HVIwpP8aHDbzPuF2PSXrW tWhwX31tUDuDHaqPi9njL vlySkfQK4sPZDeialzw17 5VhOpa9dqVQAq lILgAXopGHZ2E56wd5U0Y LDxWRTqYVR9uFC5wK3srN lnbjogbGVmdDsgdmVydGl tUSfeMWpgX544 IHRvcDsnPlBhdGllbnQgT oVgDUi8T3FoBnr3JBMgoW vsVC1yeAEuLHxiEy4szJo ugEkhOW3jQZFn jobgi253CmGke7fpYVZjh MFfBPgkQCX1D85ol5F1IQ UyJDGeQAS9aEM0jO3puZs nbjogbGVmdDsg wjNauVwwBIgiNMpiY402L HRvcDsnPkJpcnRoIERhdG I2VI98EE76xNJkh4F1lNI 3O6QgHTQlkaji sreewFM5YFLgHVMsqD82N h2snSmkLz0xHWGmMBZ2ZO HinQUkG9WviM6xYcPvSFH xAUQwI0OdhFFa MIzwH494EMabDqR7UBYvt rRuA2SmOQErqJqrWlA2a4 I3Vf6PZ0M5ZN97TN43cDT bv7S2rPW8L7Lv SJXydssjogxxeXF2PLEeX DBusT55Gb2hrNykRc5tXN CqGXL3JQNpeIVkB4SvsP9 yOiAjMDAwMDAw O6ZolRSbCQnoO296VEemM wH4OMAvsjLzK5CbXTHzrX ubPiD6a0P3Rk9LHFn0ZO5 5RX98rRLht5G3 bZW4P2RhBDNpyqbwtwlqg IB5IMCcMSIcwP97Ks2doP wbJu3pDKMuRFE7ASQfxOX nE6IwyL7cVtDr VKPhUYLcO4OcoENwCJheI 261XLxbOcL9FSYxhpKfV9 HvGUDfgLyhIpK6y3D4Gv9 NEINwVN54HJE0 aAY5FS72YW75B8KvIqkfk GFibGU+PHRhYmxlIHdpZH RoPScxMDAlJyBzdHlsZT0 cMb3zXCOxYRUp iPzngWHwUoSgo7qbSWFgW IxqMZ2tyEqfC2BdpKK3DQ Ybt7i7Pc92K76mL3McyXR +QUJttSN1aZX9 pE6jOzWmNzV5LTvpW585Z hWpqBLfWwppu4tbu8efhZ d4FpW6ZUHyjpShsPzrLYV 8w4GqRs23K77t IHdpZHRoPSIxNSUiIHZhb Cywac6bpE9cLh9+PGNvbC W4nPH5nC5gGcKiEkQ4MHz zS453QfKyqNPj Tklln5vkj8ndnIz3EuYjQ TFyzzTepSdoEGY3b1WyVc 69K3AxmNgyo1VfQfl9iv3 8eQTcu3H8dTG2 C5McSAJpkrqnnDYskHjcT M0hDMLrnjcfISDznN8aVA OrW5a4EdJpYfK0JAvhB5V pnyQ6ALEkrXSc SPxqRCX6D11al7Q4HHHkZ MUjZOE0nZY3oN0nvYywgz ogbGVmdDsgdmVydGljYWw zTPivF328ZOWr xYddLWRemO5mFHMnoTTty XitEN4xASOmijxhXplSQU VDCbbsEDMBJWbBIB38QP0 2tAMgp4B1vDC2 U7EiLFQyxvgufjcptRZ9U EKnFEOtjK96gWRmJDyrNn 2od2L4n795SGZyVHRtzD1 8Wx1qzTbbISPo dPKXwN4jilxwg2ddmsoiU qIsXAYkMHj6NCn4NBLykQ npUxCfPJI8TzX3HON1nVT tjN4hcUoanhzl pC9rZgo+MDcvMTkvMjAwM zwvdGQ+NFOiYCV1uLgrXD wqUJBpyX4aOTCzF5d2CgF lQxH3ZDjbC5Di WTSceowkJh69xN3aNePaD wG9QMblG5XdanW8PCEitC AbEZejSAB9X93nx9P2ZOX mCGGpONZ8oTX0 pZ0qyMfhktvpvIYzqIkbx jJtiHeeVBiaDYduS711ZT MrfDuzVgI8JSubZVIvBB4 5XK25gHPef3I7 dNU9I9ZsSQLwhfgyyzzpm DF7HPTiFLZwcY23oBAeQO ujEh4ky7E5z528EFPrVHI ipZ81Jh4kgEfv OWCplUGApR7lgrdld5zpc ooqNfJiGVEcHPw2OEw4IJ UuhCygSlExKLK7FkQ8QWY 2dSSgwX8juQfa bsywcQ4sLgd+TWFsZTwvd GQ+NTZiXOX7rBwjKNacPX BkmB8hHVHgW2x2ZjHiBnF 7SVsmD0YkELPo dmgiSk29fD6yVdAtTrY8A JhnQ0MdvzO4EQVyvYIpKX grQFS4H38xp8T3FUAxYTO iSII6pGY6aO9k bGlnbjogbGVmdDsgdmVyd ZocNTskPRciQ450PEOmzW fpYm46cOCpiGtyyaN6M4D kPjwvdHI+PC90 PQBbYQ96dZPtcJCzz0yyl Nj6EdRrEHCaGQO7wKcpCO mdt5IkFXAeT55xnJGao7A 6IGNvbGxhcHNl KfEghAQ7gT4mQTlpmixnj 0dbqmkyNwwcj1izok26oJ 41J48cJZbuBDJjPMEcHAP uLPAmsIijmc8n zE1kYq6+EOLufAB0uRF2u Z4mPdEjFhN7MXjeH166Ww ZbxNBnYmvbe6npk3mpmGo 9IjIwJSIgdmFs dTjeNEW9h8RjRb04F27nQ HdpZHRoPSIyMCUiIHZhbG bjrt0imN6qKf7+ZN9bz5x owz18nH10gAY+ NNVgZXD7tHnfRZftLHZbc T4uRGnjQsK5AQThQeAweX 51qWOvSCtwMq6mlPsefHq bVE1wHIJovtpg o635UqIgj5qrRWLkiIAdL MddSVP8R03ky4V2YBVjIL YfZGX8zJJ4jR1nnAelgse gbGVmdDsgdmVy lPyhMXprGAehM721EFIzw XftWcKjmJUvN0jvwrRYOQ 1lOjwvdGQ+TWBdDXX3jKp iAFojWBCvjI2q YIFaZ4p2EhPmTuF5MDuvH 5IakhJ8UURwmWJlWSAxqO EWuR7qacimz5bxabytGjC zJTCkSYl9OTx9 ZKUweGstMqToBVC1DuX8P UX8vAUwyY3ppXqklhcoiV 9wOyc+RklOOjwvdGQ+PHR rVAW7qDtfSTpv OBLwsG8pMAUrA6l6AtTcX mD6WHxkK4HjmcE2ZRRepX OeQOTdaIAJuM2dluvqe9u vcjogIzAwMDAw FMf9TNm4HJDgkNgrTwSaM WG2FsS7NFQ8iPLzaC8mwV ykvgncsV7oVam+TVJOOjw vdGQ+PHRkIHN0 dYrpQDdbEIFxxO6oTDEhB 2i6LyXnOlV7VSdqG3Jyzg V4HLWbyNKqGKDgxDHVfO9 phjtoz3vvttsw VnIkUHJwJPk5VVv5XROnh ZohUaRyWWL3MzR8YUP4sS PweK1crUnwgnapeX6kUsd +XJB0OYE2GV02 HX19M1JzAumlfYDsbOJ+P HRhYmxlIHdpZHRoPScxMD DqPnSowIguLL7oSm3fQFI yLWNvbGxhcHNl OiBj (more content not included)... Normal [facility] RF Quanton 04-23-2022 Rheumatoid factor Qn [IU]/mL Invalid Interpretation Code <14.0 [facility] Comment on above: Result Comment: Perf ormed at: [facility] [address] [id number] PhD Missael Oneal Performed By: #### 2 605182, 1327392, 75674517, 29309402, 8908818, 56324569, 8986955, 65440606 #### [facility] [address] [place] [address] BMPon 04-19-2022 Anion gap [Moles/Vol] 12 mmol/L Normal 6-16 [facility] Comment on above: Performed By: #### 2 036101, 4402305, 85291509, 72550190, 1672114, 70269716, 0062881, 36599170 #### [facility] [address] [place] [address] Calcium [Mass/Vol] 9.7 mg/dL Normal 8.9-11.1 [facility] Comment on above: Performed By: #### 2 952731, 3227594, 09772270, 27174599, 5179516, 82162803, 4960667, 86011107 #### [facility] [address] [place] [address] Chloride [Moles/Vol] 99 mmol/L Low 101-111 [facility] Comment on above: Performed By: #### 2 683039, 1685553, 53269738, 63602164, 7592542, 48017873, 3836494, 89054052 #### [facility] [address] [place] [address] CO2 [Moles/Vol] 32 mmol/L High 21-31 [facility] Comment on above: Performed By: #### 2 940354, 7157375, 45517671, 73739768, 7698534, 98974027, 2388363, 83631081 #### [facility] [address] [place] [address] Creatinine [Mass/Vol] 0.8 mg/dL Normal 0.5-1.3 [facility] Comment on above: Performed By: #### 2 249941, 8626550, 23589062, 85929064, 4881790, 45195001, 0371812, 97204454 #### [facility] [address] [place] [address] Glucose [Mass/Vol] 92 mg/dL Normal 55-199 [facility] Comment on above: Result Comment: If t his glucose result represents a fasting glucose, interpretation should refer to the following reference range: 55-99 mg/dL Performed By: #### 2 399856, 7504676, 39667188, 42088119, 2355530, 20389551, 2282357, 35215474 #### [facility] [address] [place] [address] Potassium [Moles/Vol] 4.0 mmol/L Normal 3.5-5.3 [facility] Comment on above: Performed By: #### 2 660460, 0657104, 03808801, 39242978, 1776932, 13965154, 1011134, 52123365 #### [facility] [address] [place] [address] Sodium [Moles/Vol] 139 mmol/L Normal 135-145 [facility] Comment on above: Performed By: #### 2 932454, 3219196, 47718979, 04503209, 3041419, 68854089, 2455863, 81321755 #### [facility] [address] [place] [address] Urea nitrogen [Mass/Vol] 13 mg/dL Normal 5-21 [facility] Comment on above: Performed By: #### 2 910573, 7231231, 17468685, 97896727, 1913091, 49165782, 9646860, 76231042 #### [facility] [address] [place] [address] Urea nitrogen/Creatinine [Mass ratio] 16 No Units Normal 10-20 [facility] Comment on above: Performed By: #### 2 891840, 3275820, 41453497, 68378780, 7610486, 53668176, 1332197, 90406866 #### [facility] [address] [place] [address] CBC w/Indiceson 04-19-2022 Erythrocyte distribution width (RBC) [Ratio] 13.6 % Normal 10.9-14.2 [facility] Comment on above: Performed By: #### 2 016506, 3043513, 18548566, 94026602, 1661161, 09140759, 2684670, 05947676 #### [facility] [address] [place] [address] Hematocrit (Bld) [Volume fraction] 46.2 % Normal 37.7-49.0 [facility] Comment on above: Performed By: #### 2 550721, 3976499, 26895748, 65460213, 3245303, 33245984, 6532334, 38722427 #### [facility] [address] [place] [address] Hemoglobin (Bld) [Mass/Vol] 15.9 g/dL Normal 13.5-17.5 [facility] Comment on above: Performed By: #### 2 488314, 5815751, 39776101, 12002452, 6922353, 79001056, 5268391, 59666958 #### [facility] [address] [place] [address] MCH (RBC) [Entitic mass] 29.8 pg Normal 27.0-34.0 [facility] Comment on above: Performed By: #### 2 100039, 9175234, 29604373, 28969983, 8948183, 80514214, 4629148, 20557740 #### [facility] [address] [place] [address] MCHC (RBC) [Mass/Vol] 34.4 g/dL Normal 31.4-36.0 [facility] Comment on above: Performed By: #### 2 925176, 6163414, 79303335, 43945074, 2581131, 46772618, 6760335, 35753902 #### [facility] [address] [place] [address] MCV (RBC) [Entitic vol] 86.5 fL Normal 80.0-100.0 [facility] Comment on above: Performed By: #### 2 197730, 7541845, 77564289, 20450891, 1009810, 97595110, 7919185, 84807623 #### [facility] [address] [place] [address] Platelet mean volume (Bld) [Entitic vol] 8.6 fL Normal 6.4-10.8 [facility] Comment on above: Performed By: #### 2 913014, 3475026, 18077275, 42297847, 1781371, 35446778, 0930951, 37127558 #### [facility] [address] [place] [address] Platelets (Bld) [#/Vol] 245.0 E9/L Normal 150.0-500.0 [facility] Comment on above: Performed By: #### 2 785690, 3147619, 78205724, 38716161, 2617945, 07607614, 0289410, 71212453 #### [facility] [address] [place] [address] RBC (Bld) [#/Vol] 5.3 E12/L Normal 4.3-5.9 [facility] Comment on above: Performed By: #### 2 809700, 6774970, 53015733, 97895038, 9763342, 73271334, 4949375, 81098483 #### [facility] [address] [place] [address] WBC corrected for nucl RBC Auto (Bld) [#/Vol] 4.9 E9/L Normal 4.0-11.0 [facility] Comment on above: Performed By: #### 2 402895, 8136014, 97078910, 78907390, 8590579, 24938177, 5022975, 29777616 #### [facility] [address] [place] [address] CHEMISTRYOrdered By: SYSTEM SYSTEM on 04-19-2022 Anion gap [Moles/Vol] 12 mmol/L Normal 6 - 16 mEq/L [facility] Calcium [Mass/Vol] 9.7 mg/dL Normal 8.9 - 11. 1 mg/dL [facility] Chloride [Moles/Vol] 99 mmol/L Low 101 - 1 11 mmol/L [facility] CO2 [Moles/Vol] 32 mmol/L High 21 - 31 mmol/L [facility] Creatinine [Mass/Vol] 0.8 mg/dL Normal 0.5 - 1.3 mg/dL [facility] CRP [Mass/Vol] 0.7 mg/dL Normal <=1.9mg/dL [facility] ol GFR/1.73 sq M.predicted among blacks MDRD (S/P/Bld) [Vol rate/Area] mL/min/1.73 m2 Normal >=59mL/min/ 1.73 m2 [facility] Chem S GFR/1.73 sq M.predicted among non-blacks MDRD (S/P/Bld) [Vol rate/Area] mL/min/1.73 m2 Normal >=59mL/min/ 1.73 m2 [facility] S Glucose [Mass/Vol] 92 mg/dL Normal 55 - 199 mg/dL [facility] Potassium [Moles/Vol] 4.0 mmol/L Normal 3.5 - 5.3 mmol/L [facility] Sodium [Moles/Vol] 139 mmol/L Normal 135 - 145 mmol/L [facility] Urate [Mass/Vol] 5.1 mg/dL Normal 2.2 - 7.4 mg/dL [facility] Urea nitrogen [Mass/Vol] 13 mg/dL Normal 5 - 21 mg/dL [facility] Urea nitrogen/Creatinine [Mass ratio] 16 mg/mg Normal 10 - 20 [facility] CRPon 04-19-2022 CRP [Mass/Vol] 0.7 mg/dL Normal <=1.9 [facility] Comment on above: Performed By: #### 2 140122, 8729402, 90835016, 72366572, 4974269, 28830476, 7310144, 99814288 #### [facility] [address] [place] [address] Consent for Treatmenton Consent for Treatment [id number] .[id number]:127 Normal [facility] HEMATOLOGYOrdered By: Una Bhatti on 04-19-2022 Erythrocyte distribution width (RBC) [Ratio] 13.6 % Normal 10.9 - 14.2 % [facility] Hematocrit (Bld) [Volume fraction] 46.2 % Normal 37.7 - 49.0 % [facility] Hemoglobin (Bld) [Mass/Vol] 15.9 g/dL Normal 13.5 - 17.5 gm/dL FT [facility] MCH (RBC) [Entitic mass] 29.8 pg Normal 27.0 - 34.0 pg FT [facility] MCHC (RBC) [Mass/Vol] 34.4 g/dL Normal 31.4 - 36.0 gm/dL FT [facility] MCV (RBC) [Entitic vol] 86.5 fL Normal 80.0 - 100.0 fL FT [facility] Platelet mean volume (Bld) [Entitic vol] 8.6 fL Normal 6.4 - 10.8 fL FT Heme[facility]SS Platelets (Bld) [#/Vol] 245.0 E9/L Normal 150. 0 - 500.0 E9/L FT [facility] RBC (Bld) [#/Vol] 5.3 E12/L Normal 4.3 - 5.9 E12/L [facility] Sed Rate Automated 6 mm/h Normal 0 - 19 mm/hr FT [facility] WBC corrected for nucl RBC Auto (Bld) [#/Vol] 4.9 E9/L Normal 4.0 - 11.0 E9/L [facility] [place] [facility] Physician Orderon 04-19-2022 Physician Order [id number]# 1.00CD:127 Normal [facility] Sed Rate Automatedon 023 Sed Rate Automated 6 mm/hr Normal 0-19 [facility] Comment on above: Performed By: #### 2 [id number], [id number], [id number], [id number], [id number], [id number], [id number] #### [facility] [address] [place] [address] Uric Acidon 04-19-2022 Urate [Mass/Vol] 5.1 mg/dL Normal 2.2-7.4 [facility] Comment on above: Performed By: #### 2 [id number], [id number], [id number], [id number], [id number], [id number], [id number], [id number] #### [facility] [address] [place] [address] eGFRon 04-19-2022 GFR/1.73 sq M.predicted among blacks MDRD (S/P/Bld) [Vol rate/Area] mL/min/{1.73_m2} Normal >=59 [facility] Comment on above: Order Comment: Order added by Discern Expert. Result Comment: eGFR is race adjusted. AA=. Performed By: #### 2 [id number], [id number], [id number], [id number], [id number], [id number], [id number], [id number] #### [facility] [address] [place] [address] GFR/1.73 sq M.predicted among non-blacks MDRD (S/P/Bld) [Vol rate/Area] mL/min/{1.73_m2} Normal >=59 [facility] Comment on above: Order Comment: Order added by Discern Expert. Result Comment: Plasterer Tender anni kidney disease could be indicated at eGFR's of less than 60 mL/min/1.73m2. Kidney failure is indicated at less than 15 mL/min/1.73m2. Performed By: #### 2 [id number], [id number], [id number], [id number], 9414609, [id number], [id number], [id number] #### [place] [facility] [address] [place] [address] ACETAMINOPHENon 01-28-2022 Acetaminophen [Mass/Vol] ug/mL Critically low 10.0-30.0 Comment on above: Performed By: #### E TH, SALYC, ACET #### [facility] [address] [place] [address] Dr. Annabella Lara CBC AUTO DIFFon 01-28-2022 BASO # 0.0 103/ul Normal 0.0-0.1 Comment on above: Performed By: #### C BC #### [facility] [address] [place] [address] Dr. Annabella Lara Basophils/100 WBC (Bld) 0.3 % Normal 0.2-2.0 [facility] Comment on above: Performed By: #### C BC #### [facility] [address] [place] [address] Dr. Annabella Lara EO # 0.1 103/ul Normal 0.0-0.7 Comment on above: Performed By: #### C BC #### [facility] [address] [place] [address] Dr. Annabella Lara Eosinophils/100 WBC (Bld) 2.0 % Normal 0.9-7.0 Comment on above: Performed By: #### C BC #### [facility] [address] [place] [address] Dr. Annabella Lara Erythrocyte distribution width (RBC) [Ratio] 12.8 % Normal 11.0-15.0 Comment on above: Performed By: #### C BC #### [facility] [address] [place] [address] Dr. Annabella Lara Hematocrit (Bld) [Volume fraction] 46.9 % Normal 42.0-54.0 Comment on above: Performed By: #### C BC #### [facility] [address] [address] [address] Annabella Lara Hemoglobin (Bld) [Mass/Vol] 16.1 g/dL Normal 14.0-18.0 Comment on above: Performed By: #### C BC #### [facility] [address] [address] [address] Annabella Lara IG # 0.01 10e3/ul Normal 0.00-0.03 Comment on above: Performed By: #### C BC #### [facility] [address] [place] [address] Dr. Annabella Lara IG % 0.1 % Normal 0.0-0.5 Comment on above: Performed By: #### C BC #### [facility] [address] [place] [address] Dr. Annabella Lara LYMPH # 1.2 103/ul Normal 1.2-3.8 Comment on above: Performed By: #### C BC #### [facility] [address] [place] [address] Dr. Annabella Lara Lymphocytes/100 WBC (Bld) 17.3 % Critically low 20.5-60.0 Comment on above: Performed By: #### C BC #### [facility] [address] [place] [address] Dr. Annabella Lara MANUAL DIFF REQ NO Normal [facility] [facility] Comment on above: Performed By: #### C BC #### [facility] [address] [place] [address] Dr. Annabella Lara MCH (RBC) [Entitic mass] 29.1 pg Normal 25.9-34.0 Comment on above: Performed By: #### C BC #### [facility] [address] [place] [address] Dr. Annabella Lara MCHC (RBC) [Mass/Vol] 34.3 g/dL Normal 29.9-35.2 Comment on above: Performed By: #### C BC #### [facility] [address] [address] [address] Annabella Lara MCV (RBC) [Entitic vol] 84.8 fL Normal 80.0-94.0 [facility] Comment on above: Performed By: #### C BC #### [facility] [address] [address] [address] Annabella Lara MONO # 0.5 103/ul Normal 0.3-0.8 Comment on above: Performed By: #### C BC #### [facility] [address] [address] [address] Annabella Lara Monocytes/100 WBC (Bld) 6.4 % Normal 1.7-12.0 [facility] Comment on above: Performed By: #### C BC #### [facility] [address] [place] [address] Dr. Annabella Lara NEUT # 5.2 103/ul Normal 1.4-6.5 Comment on above: Performed By: #### C BC #### [facility] [address] [place] [address] Dr. Annabella Lara Neutrophils/100 WBC (Bld) 73.9 % Normal 43.0-75.0 Comment on above: Performed By: #### C BC #### [facility] [address] [place] [address] Dr. Annabella Lara Platelet mean volume (Bld) [Entitic vol] 10.7 fL Normal 9.5-13.5 Comment on above: Performed By: #### C BC #### [facility] [address] [address] [address] Annabella Lara PLT 179 103/ul Normal 150-450 [facility] Comment on above: Performed By: #### C BC #### [facility] [address] [address] [address] Annabella Lara RBC 5.53 106/ul Normal 4.70-6.10 Comment on above: Performed By: #### C BC #### [facility] [address] [address] [address] Annabella Lara WBC 7.0 103/ul Normal 4.0-11.0 [facility] Comment on above: Performed By: #### C BC #### [facility] [address] [address] [address] Annabella Lara Covid-19 PCR ([facility])on 01-16 SARS-CoV-2 (COVID-19) RNA KATY+probe Ql (Unsp spec) Not detected Normal NOT DETECTED [facility] Comment on above: Result Comment: When diagnostic testing is negative, the possibility of a false negative should be considered in the context of a patient's recent exposures and the presence of clinical signs and symptoms consistent with SARS-CoV-2. This test is not yet approved or cleared by the [place] FDA. When there are no FDA-approved or cleared tests available, and other criteria are met, FDA can make tests available under an emergency access mechanism called an Emergency Use Authorization (EUA). The EUA for this test is supported by the [place] of Health and Human Service's declaration that circumstances exist to justify the emergency use of in vitro diagnostics for the detection and/or diagnosis of the virus that causes COVID-19. This EUA will remain in effect for the duration of the COVID-19 declaration justifying emergency of IVDs, unless it is terminated or revoked by the FDA (after which the test may no longer be used). Performed By: #### C VDTBH ####[facility] [address] [address]Dr. Annabella Lara DRUG SCREEN RAPID (URINE)on 01-28-2022 AMP Negative Normal NEGATIVE [facility] Comment on above: Performed By: #### D RUGRPD ####[facility] [address] [id number]. Annabella Lara BAR Negative Normal NEGATIVE [facility] Comment on above: Performed By: #### D RUGRPD ####[facility] [address] [id number]. Annabella Lara BUP Negative Normal NEGATIVE [facility] Comment on above: Performed By: #### D RUGRPD ####[facility] [address] [place], [place] [id number]. Annabella Lara BZO Negative Normal NEGATIVE [facility] Comment on above: Performed By: #### D RUGRPD ####[facility] [address] [place], [place] [id number]. Annabella Lara DEQUAN Negative Normal NEGATIVE [facility] Comment on above: Performed By: #### D RUGRPD ####[facility] [address] [place], [place] [address]Dr. Annabella Lara CUT-OFFS SEE BELOW Normal Comment on above: Result Comment: AMP (Amphetamine): 500ng/mL, BAR (Barbituates): 200 ng/mL, BZO (Benzodiazepines): 150 ng/mL, BUP (Buprenorphine): 10 ng/mL, DEQUAN (Cocaine): 150 ng/mL, mAMP (Methamphetamine): 500 ng/mL, MTD (Methadone): 200 ng/mL, OPI (Opiates): 100 ng/mL, OXY (Oxycodone): 100 ng/mL, PCP (Phencyclidine): 25 ng/mL, PPX (Propoxyphene): 300 ng/mL, THC (Cannabinoids): 50 ng/mL, TCA (Trycyclic Antidepressants): 300 ng/mL Performed By: #### D RUGRPD ####[facility] [address] [place], [place] [address]Dr. Annabella Lara DRUG CUT HEADER DRUG CLASS TEST SYSTEM CUT-OFF CONCENTRATIONS ARE FOLLOWS: Normal [facility] Comment on above: Performed By: #### D RUGRPD ####[facility] [address] [place], [place] [address]Dr. Annabella Lara mAMP Negative Normal NEGATIVE [facility] Comment on above: Performed By: #### D RUGRPD ####[facility] [address] [place], [place] [address]Dr. Annabella Lara MTD Negative Normal NEGATIVE [facility] Comment on above: Performed By: #### D RUGRPD ####[facility] [address] [place], [place] [address]Dr. Annabella Lara OPI Negative Normal NEGATIVE [facility] Comment on above: Performed By: #### D RUGRPD ####[facility] [address] [address]Dr. Annabella Lara OXY Negative Normal NEGATIVE [facility] Comment on above: Performed By: #### D RUGRPD ####[facility] [address] [address]Dr. Annabella Lara PCP Negative Normal NEGATIVE [facility] Comment on above: Performed By: #### D RUGRPD ####[facility] [address] [address]Dr. Annabella Lara PPX Negative Normal NEGATIVE [facility] Comment on above: Performed By: #### D RUGRPD ####[facility] [address] [address]Dr. Annabella Lara TCA Negative Normal NEGATIVE [facility] Comment on above: Performed By: #### D RUGRPD ####[facility] [address] [address]Dr. Annabella Lara THC Positive Abnormal NEGATIVE [facility] Comment on above: Performed By: #### D RUGRPD ####[facility] [address] [address]Dr. Annabella Lara ETHANOL (BLD ALC)on 01-29-20 22 ALC NOTE NOTE: 80 mg/dl is th e legal limit for a blood alcohol level Normal Comment on above: Performed By: #### E ANDRES GORDON ACET #### [facility] [address] [address] [address] Annabella Lara Ethanol [Mass/Vol] mg/dL Normal [facility] Comment on above: Performed By: #### E ANDRES GORDON ACET #### [facility] [address] [address] [address] Annabella Lara PROF 14(COMP METB)on 022 Albumin [Mass/Vol] 4.2 g/dL Normal 3.4-5.0 [facility] Comment on above: Performed By: #### C MP #### [facility] [address] [place] [address] Dr. Annabella Lara Albumin/Globulin [Mass ratio] 1.0 {ratio} Normal Comment on above: Performed By: #### C MP #### [facility] [address] [place] [address] Dr. Annabella Lara ALP [Catalytic activity/Vol] 82 U/L Normal 46-116 Comment on above: Performed By: #### C MP #### [facility] [address] [place] [address] Dr. Annabella Lara ALT [Catalytic activity/Vol] 31 U/L Normal 16-63 Comment on above: Performed By: #### C MP #### [facility] [address] [place] [address] Dr. Annabella Lara Anion gap [Moles/Vol] 6.9 mmol/L Normal Comment on above: Performed By: #### C MP #### [facility] [address] [place] [address] Dr. Annabella Lara AST [Catalytic activity/Vol] 24 U/L Normal 15-37 Comment on above: Performed By: #### C MP #### [facility] [address] [place] [address] Dr. Annabella Lara Bilirubin [Mass/Vol] 0.2 mg/dL Normal 0.2-1.0 Comment on above: Performed By: #### C MP #### [facility] [address] [place] [address] Dr. Annabella Lara Calcium [Mass/Vol] 9.2 mg/dL Normal 8.5-10.1 [facility] Comment on above: Performed By: #### C MP #### [facility] [address] [place] [address] Dr. Annabella Lara Chloride [Moles/Vol] 103 mmol/L Normal 98-107 Comment on above: Performed By: #### C MP #### [facility] [address] [place] [address] Dr. Annabella Lara CO2 [Moles/Vol] 30.5 mmol/L Normal 21.0-32.0 [facility] Comment on above: Performed By: #### C MP #### [facility] [address] [address] [address] Annabella Lara Creatinine [Mass/Vol] 0.80 mg/dL Normal 0.70-1.30 Comment on above: Performed By: #### C MP #### [facility] [address] [address] [address] Annabella Lara EGFR-AF CHADIAN >60 Normal >=60 [facility] Comment on above: Performed By: #### C MP #### [facility] [address] [address] [address] Annabella Lara EGFR-NON AF CHADIAN >60 Normal >=60 Comment on above: Performed By: #### C MP #### [facility] [address] [place] [address] Dr. Annabella Lara Globulin (S) [Mass/Vol] 4.0 g/dL Normal [facility] Comment on above: Performed By: #### C MP #### [facility] [address] [place] [address] Dr. Annabella Lara Glucose [Mass/Vol] 84 mg/dL Normal 74-106 [facility] Comment on above: Performed By: #### C MP #### [facility] [address] [place] [address] Dr. Annabella Lara Potassium [Moles/Vol] 4.4 mmol/L Normal 3.5-5.1 [facility] Comment on above: Performed By: #### C MP #### [facility] [address] [place] [address] Dr. Annabella Lara Protein [Mass/Vol] 8.2 g/dL Normal 6.4-8.2 [facility] Comment on above: Performed By: #### C MP #### [facility] [address] [place] [address] Dr. Annabella Lara Sodium [Moles/Vol] 136 mmol/L Normal 136-145 [facility] Comment on above: Performed By: #### C MP #### [facility] [address] [place], [place] [address] Dr. Annabella Lara Urea nitrogen [Mass/Vol] 12.0 mg/dL Normal 6.4-19.3 Comment on above: Performed By: #### C MP #### [facility] [address] [place], [place] [address] Dr. Annabella Lara Urea nitrogen/Creatinine [Mass ratio] 15.0 mg/mg Normal Comment on above: Performed By: #### C MP #### [facility] [address] [address] [address] Annabella Lara SALICYLATEon 01-28-2022 SALICYLATE <2.8 Normal <=19.9 Comment on above: Performed By: #### E TH, ANDRES, ACET #### [facility] [address] [address] [address] Annabella Lara Vital Signs Date Time Vital Sign Value Performing Clinician Facility 03-13-2023 07:30-0500 Body temperature 98.2 [degF] [facility] Darin Shammo Work Phone: [facility] 03-13-2023 07:30-0500 Diastolic blood pressure 73 mm[Hg] [facility] Darin Shammo Work Phone: [facility] 03-13-2023 07:30-0500 Heart rate 87 /min [facility]- Darin Shammo Work Phone: [facility] 03-13-2023 07:30-0500 Respiratory rate 16 /min [facility]- Darin Shammo Work Phone: [facility] 03-13-2023 07:30-0500 SaO2% (BldA) [Mass fraction] 97 % [facility]- Darin Shammo Work Phone: [facility] 03-13-2023 07:30-0500 Systolic blood pressure 104 mm[Hg] [facility]- Darin Shammo Work Phone: [facility] 03-11-2023 08:53-0500 Body weight 21.7 kg [employer] Darin Shammo Work Phone: [facility] 03-10-2023 10:39-0500 Body height 172.72 cm [employer] Darin Shammo Work Phone: [facility] 2022 07:30-0400 Body temperature 97.4 [degF] [employer] Darin Shammo Work Phone: [facility] 2022 07:30-0400 Diastolic blood pressure 85 mm[Hg] [employer] Darin Shammo Work Phone: [facility] 2022 07:30-0400 Heart rate 114 /min [employer]-BC Darin Shammo Work Phone: [facility] 2022 07:30-0400 SaO2% (BldA) [Mass fraction] 100 % [employer]-BC Darin Shammo Work Phone: [facility] 2022 07:30-0400 Systolic blood pressure 126 mm[Hg] [employer] Darin Shammo Work Phone: [facility] 10-02-2022 20:12-0400 Respiratory rate 16 /min [employer]-BC Darin Shammo Work Phone: [facility] 10-01-2022 15:18-0400 Body height 172.72 cm [employer]-BC Darin Shammo Work Phone: [facility] 10-01-2022 09:00-0400 Body weight 70.76 kg [employer]-BC Darin Shammo Work Phone: [facility] 08-05-2022 15:21-0400 Diastolic blood pressure 70 mm[Hg] [employer] Darin Shammo Work Phone: [facility] 08-05-2022 15:21-0400 Heart rate 79 /min [employer]-BC Darin Shammo Work Phone: [facility] 08-05-2022 15:21-0400 Respiratory rate 16 /min [employer]-BC Darin Shammo Work Phone: [facility] 08-05-2022 15:21-0400 SaO2% (BldA) [Mass fraction] 98 % [employer]BC Darin Shammo Work Phone: [facility] 08-05-2022 15:21-0400 Systolic blood pressure 111 mm[Hg] [employer] Darin Shammo Work Phone: [facility] 08-05-2022 07:30-0400 Body temperature 97.6 [degF] [employer] Darin Shammo Work Phone: [facility] 08-03-2022 12:02-0400 Body height 170.18 cm [employer]-BC Darin Shammo Work Phone: [facility] 08-03-2022 12:02-0400 Body weight 72.57 kg [employer]-BC Darin Shammo Work Phone: [facility] 06-13-2022 07:30-0400 Body temperature 98 [degF] [employer]BC Darin Shammo Work Phone: [facility] 06-13-2022 07:30-0400 Diastolic blood pressure 68 mm[Hg] [employer]BC Darin Shammo Work Phone: [facility] 06-13-2022 07:30-0400 Heart rate 76 /min [employer]BC Darin Shammo Work Phone: [facility] 06-13-2022 07:30-0400 Respiratory rate 18 /min [employer]BC Darin Shammo Work Phone: [facility] 06-13-2022 07:30-0400 SaO2% (BldA) [Mass fraction] 96 % [employer]BC Darin Shammo Work Phone: [facility] 06-13-2022 07:30-0400 Systolic blood pressure 112 mm[Hg] [employer]BC Darin Shammo Work Phone: [facility] 06-12-2022 20:00-0400 Body height 170.18 cm [employer]-BC Darin Shammo Work Phone: [facility] 06-12-2022 20:00-0400 Body weight 68.94 kg [employer]-BC Darin Shammo Work Phone: [facility] 05-22-2022 13:15-0500 Body height 170.2 cm Cherise Ramirez DMD, MD Work Phone: [facility] 05-22-2022 13:15-0500 Body mass index (BMI) [Ratio] 23.49 kg/m2 Cherise Ramirez DMD, MD Work Phone: [facility] 05-22-2022 13:15-0500 Body weight 68.04 kg Cherise Ramirez DMD, MD Work Phone: [facility] Encounters Encounter Date Encounter Type Care Provider Facility Start: 04-17-2023 ambulatory UNKNOWN PROVIDER Facili ty:[facility] Start: 03-09-2023 End: 03-13-2023 Evaluation and management of inpatient Shubham Timur Facility:[facility] Start: 03-09-2023 End: 03-13-2023 Evaluation and management of inpatient [employer]-BC Darin Shammo Work Phone: [address] Work Phone: Start: 02-22-2023 End: 02-25-2023 ambulatory UNKNOWN PROVIDER Facility:[facility] Start: 02-22-2023 End: 02-25-2023 Patient encounter procedure Onur Davila DDS Work Phone: [facility] Start: 02-06-2023 End: 02-11-2023 ambulatory UNKNOWN PROVIDER Facility:[facility] Start: 02-06-2023 End: 02-11-2023 Patient encounter procedure Onur Davila DDS Work Phone: [facility] Start: 01-21-2023 ambulatory UNKNOWN PROVIDER Facili ty:[facility] Start: 12-28-2022 Telephone encounter Alfonzo grant DDS Work Phone: [facility] Comment on above: Dental Start: 11-16-2022 End: 11-20-2022 ambulatory UNKNOWN PROVIDER Facility:[facility] Start: 11-16-2022 End: 11-20-2022 Patient encounter procedure Alfonzo Mccord DDS Work Phone: [facility] Start: 10-29-2022 End: 11-01-2022 ambulatory UNKNOWN PROVIDER Facility:[facility] Start: 10-29-2022 End: 11-01-2022 Patient encounter procedure Alfonzo Mccord DDS Work Phone: [facility] Comment on above: Poor oral hygiene (P rimary Dx) Start: 10-11-2022 End: 10-15-2022 ambulatory UNKNOWN PROVIDER Facility:[facility] Start: 10-11-2022 End: 10-15-2022 Patient encounter procedure Javed Mendez DDS Work Phone: [facility] Start: 10-08-2022 Orders Only Erum rivera DDS Work Phone: [facility] Start: 10-07-2022 Letter encounter Erum matthews DDS Work Phone: [facility] Start: 09-28-2022 End: 2022 Evaluation and management of inpatient Shubham Timur Facility:[facility] Start: 09-28-2022 End: 2022 Evaluation and management of inpatient [employer]-BC Darin Shammo Work Phone: [facility] Work Phone: Start: 09-28-2022 ambulatory Darin T Shammo Facility :[facility] Start: 09-27-2022 End: 10-02-2022 ambulatory UNKNOWN PROVIDER Facility:[facility] Start: 09-27-2022 End: 10-02-2022 Patient encounter procedure Alfonzo Mccord DDS Work Phone: [facility] Start: 09-05-2022 End: 09-10-2022 ambulatory UNKNOWN PROVIDER Facility:[facility] Start: 09-05-2022 End: 09-10-2022 Patient encounter procedure Erma Riley DDS Work Phone: [facility] Start: 08-23-2022 End: 08-24-2022 ambulatory UNKNOWN PROVIDER Facility:[facility] Start: 08-03-2022 End: 08-05-2022 Evaluation and management of inpatient Shubham Ding Facility:[facility] Start: 08-03-2022 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 Jane sergey Shammo Work Phone: [facility] Start: 08-03-2022 End: 08-05-2022 Evaluation and management of inpatient [employer] OPER[employer]-BC Darin Shammo Work Phone: [facility] Work Phone: Start: 07-16-2022 End: 07-18-2022 ambulatory UNKNOWN PROVIDER Facility:[facility] Start: 07-16-2022 End: 07-18-2022 Patient encounter procedure Esther Teeteresa DMD Work Phone: [facility] Start: 07-05-2022 End: 07-10-2022 ambulatory UNKNOWN PROVIDER Facility:[facility] Start: 07-05-2022 End: 07-05-2022 Patient encounter procedure Erum Swensonmiguel DDS Work Phone: [facility] Comment on above: Arrived Start: 06-18-2022 End: 06-18-2022 Telemedicine consultation with patient Cherise Ramirez DMD, MD Work Phone: [facility] Oral Surgery Comment on above: Myofascial pain (Asya ashley Dx) Start: 06-18-2022 ambulatory UNKNOWN PROVIDER Facili ty:[facility] Start: 06-14-2022 End: 07-11-2022 ambulatory UNKNOWN PROVIDER [place] Start: 06-14-2022 End: 06-14-2022 Office outpatient new 45 minutes Erum Narda DDS Work Phone: [facility] Comment on above: Myalgia of masticati on muscle (Primary Dx); Myalgia of muscle of neck; Arthralgia of right temporomandibular joint Start: 06-12-2022 End: 06-13-2022 Evaluation and management of inpatient Darin T Shammo Facility:[facility] Start: 06-12-2022 End: 06-13-2022 Evaluation and management of inpatient [employer]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 Facility:[facility] Start: 06-08-2022 End: 06-08-2022 Emergency department patient visit UNKNOWN PROVIDER Facility:[facility] Start: 06-08-2022 End: 06-11-2022 Clinical Support Shantal Morales [facility] Trauma Recovery [facility] Start: 06-08-2022 End: 06-08-2022 Follow-up encounter Cherise Ramirez DMD, MD Work Phone: [facility] Oral Surgery Start: 06-08-2022 End: 06-08-2022 Patient encounter procedure Cherise Ramirez DMD, MD Work Phone: [facility] Oral Surgery Comment on above: Myofascial pain (Asya ashley Dx) Start: 06-05-2022 Telephone encounter Cherise gomes DMD, MD Work Phone: [facility] Oral Surgery Comment on above: Urgent TMJ Symptoms Start: 06-04-2022 End: 06-05-2022 ambulatory DARIN SHAMMO Facility:[facility] Start: 06-04-2022 End: 06-04-2022 ambulatory DARIN SHAMMO Facility:[facility] Start: 05-28-2022 End: 05-28-[address] JUAN MADRIGAL Facility:[facility] Start: 05-22-2022 ambulatory UNKNOWN PROVIDER Facili ty:[facility] Start: 05-22-2022 End: 05-22-2022 Patient encounter procedure Cherise Ramirez DMD, MD Work Phone: [facility] Oral Surgery Comment on above: Myofascial pain (Asya ramirez Dx) Start: 04-19-2022 End: 04-20-2022 ambulatory Chu Muñoz [place] Start: 04-19-2022 End: 04-19-2022 Patient encounter procedure Chu Muñoz [facility] Start: 01-28-2022 End: 01-28-2022 ambulatory [facility] Facility:[facility] Procedures Date Procedure Procedure Detail Performing Clinician Start: 05-22-2022 panoramic radiograph ic image Sam Enamorado KIM Work Phone: Plan of Treatment Date Care Activity Detail Author Start: 2052 Shingles (RZV) Vacci ne (1 of 2) Shingles (RZV) Vaccine (1 of 2) [facility] Start: 04-17-2023 End: 04-17-2023 Patient encounter procedure 04/17/2023 1:00 PM EST Procedure Visit [facility] [address] [place] [address] Onur Kapadia DDS [address] [place] [address] [facility] Start: 03-27-2023 End: 03-27-2023 Patient encounter procedure 03/27/2023 8:30 AM EST Procedure Visit [facility] [address] [place] [address] Onur Kapadia DDS [address] [place] [address] [facility] Start: 03-25-2023 End: 03-25-2023 Patient encounter procedure 03/25/2023 11:30 AM EST Procedure Visit [facility] [address] [place] [address] Alfonzo Mccord DDS [address] [place] [address] [facility] Start: 03-13-2023 [facility] Start: 03-11-2023 Administration of prophylactic treatment [facility] Start: 03-09-[address] [facility] Start: 03-09-2023 Hospital admission [facility] Start: 02-18-2023 End: 02-18-2023 Patient encounter procedure 02/18/2023 10:30 AM EST Procedure Visit [facility] [address] [place] [address] Alfonzo Mccord DDS [address] [place] [address] [facility] Start: 02-06-2023 End: 02-06-2023 Patient encounter procedure 02/06/2023 1:00 PM EST Procedure Visit [facility] [address] [place] [address] Vaughn Barrera DDS [address] [place] [address] [facility] Start: 01-21-2023 End: 01-21-2023 Patient encounter procedure 01/21/2023 10:30 AM EST Procedure Visit [facility] [address] [place] [address] Alfonzo Mccord DDS [address] [place] [address] [facility] Start: 12-16-2022 Influenza vaccination Influenza Vacc ine (#1) [facility] Start: 11-30-2022 End: 11-30-2022 Patient encounter procedure [facility] Start: 11-16-2022 Influenza vaccination Influenza Vacc ine (#1) [facility] Start: 11-16-2022 End: 11-16-2022 Patient encounter procedure 11/16/2022 10:30 AM EDT Procedure Visit [facility] [address] [place] [address] Alfonzo Mccord DDS [address] [place] [address] [facility] Start: 10-25-2022 End: 10-25-2022 Patient encounter procedure 10/25/2022 11:00 AM EDT Procedure Visit [facility] [address] [place] [address] Alfonzo Mccord Torri [address] [place] [address] [facility] Start: 10-17-2022 End: 10-17-2022 Patient encounter procedure [facility] Start: 10-11-2022 End: 10-11-2022 Patient encounter procedure [facility] Start: 2022 [facility] Start: 09-28-2022 Administration of prophylactic treatment [facility] Start: 09-28-2022 Hospital admission [facility] Start: 09-05-2022 End: 09-05-2022 Patient encounter procedure 09/05/2022 Procedure Visit Dentistry Christian Curtis DDS [address] [place] [address] [facility] Start: 08-23-2022 End: 08-23-2022 Patient encounter procedure 08/23/2022 Procedure Visit Dentistry Christian Curtis DDS [address] [place] [address] [facility] Start: 08-05-2022 [facility] Start: 08-03-[address] [facility] Start: 08-03-2022 Hospital admission [facility] Start: 07-16-2022 End: 07-16-2022 Patient encounter procedure 07/16/2022 Procedure Visit Dentistry Erum Laboy DDS [address] [place] [address] [facility] Start: 07-05-2022 End: 07-05-2022 Patient encounter procedure 07/05/2022 Procedure Visit Dentistry Erum Laboy DDS [address] [place] [address] [facility] Start: 06-29-2022 End: 06-29-2022 Patient encounter procedure 06/29/2022 Procedure Visit Dentistry Erum Laboy DDS [address] [place] [address] [facility] Start: 06-18-2022 End: 06-18-2022 Telemedicine consultation with patient [facility] Oral Surgery Comment on above: Arrived Start: 06-14-2022 End: 06-14-2022 Patient encounter procedure 06/14/2022 Procedure Visit Dentistry Erum Laboy DDS [address] [place] [address] [facility] Start: 06-13-2022 [facility] Start: 06-12-2022 Hospital admission [facility] Start: 12-16-2021 Influenza vaccination Influenza Vacc ine (#1) [facility] Start: 2020 Hepatitis C screening Hepatitis C An tibody [facility] Start: 2020 Tetanus + diphtheria + acellular pertussis vaccine (product) Tdap Booster [facility] Start: 2018 Meningococcal B (Bexsero,OMV) Vaccine (Optional,16-23 years) Meningococcal B (Bexsero,OMV) Vaccine (Optional,16-23 years) [facility] Start: 2018 Meningococcal B (Bexsero,OMV) Vaccine (Optional,16-23 years) (#1) Meningococcal B (Bexsero,OMV) Vaccine (Optional,16-23 years) (#1) [facility] Start: 2017 HIV screening HIV Test [facility] Start: 2013 Vaccination for jose rafael n papillomavirus [facility] Start: 2008 Pneumococcal vaccination Pneum ococcal Vaccine(s) (1 - PCV) [facility] Start: 04-05-2003 COVID-19 Vaccine (#1) COVID-19 Vacci ne (#1) [facility] Patient Education Depression, Ad ult (DC) [facility] [place] Instructions [facility] Work Phone: Patient referral [facility] Work Phone: Payers Date Payer Category Payer Self-pay [id number] 2021 Unknown [id number] 2002 Unknown [id number] 2.16.8 40.1.483837.3.579.2.727 2002 Unknown [id number] 2.16.84 0.1.076117.3.579.2.593 2002 Unknown [id number] 2.16.84 0.1.444824.3.579.2.593 2002 Unknown [id number] 2.16.84 0.1.803796.3.579.2.593 2002 Unknown [id number] 2.16.84 0.1.466241.3.579.2.593 2002 Unknown [id number] 2.16.84 0.1.855102.3.579.2.593 2002 Unknown [id number] 2.16. 840.1.409854.3.579.2 2002 Unknown [id number] 2.16. 840.1.735627.3.579.2. 2002 Unknown [id number] 2.16. 840.1.159390.3.579.2 2002 Unknown [id number] 2.16. 840.1.656801.3.579.2 2002 Unknown [id number] 2.16. 840.1.224713.3.579.2 2002 Unknown [id number] 2.16. 840.1.875145.3.579.2 2002 Unknown [id number] 2.16. 840.1.633761.3.579.2 2002 Unknown [id number] 2.16 840.1.532390.3.579.2 2002 Unknown [id number] 2.16 840.1.234293.3.579.2 2002 Unknown [id number] 2.16 840.1.437349.3.579.2 2002 Unknown [id number] 2.16. 840.1.376284.3.579.2 2002 Unknown [id number] 2.16 840.1.705219.3.579.2 2002 Unknown [id number] 2.16. 840.1.804988.3.579.2 2002 Unknown [id number] 2.16. 840.1.974266.3.579.2 2002 Unknown [id number] 2.16. 840.1.299851.3.579.2 2002 Unknown [id number] 2.16. 840.1.781727.3.579.2 2002 Unknown [id number] 2.16. 840.1.570085.3.579.2.732 1959 Unknown [id number] Unknown [id number] 2.16.8 40.1.126384.3.579.2.531 Unknown [id number] 2.16.8 40.1.595661.3.579.2.531 Unknown [id number] 2.16.8 40.1.602133.3.579.2.531 Unknown [id number] 2.16.8 40.1.258670.3.579.2.531 Unknown [id number] 2.16.8 40.1.691928.3.579.2.531 Social History Date Type Detail Facility Tobacco smoking status [facility] Sex Assigned At Male [facility] Start: 05-22-2022 Tobacco smoking status NHIS Smokes tobacco daily [facility] History of tobacco use Cigar Smoker [facility] Start: 05-22-2022 Tobacco use and exposure Smokeless tobacco non-user [facility] Start: 05-22-2022 Tobacco Comment Patient stated that he smokes marijuana cigars on a daily basis. [facility] Start: 2002 Sex Assigned At Not on file [facility] Start: 06-13-2022 End: 03-09-2023 Tobacco smoking status NHIS Never smoked tobacco (finding) [facility] Start: 2002 Sex Assigned At Male F [facility] Goals Date Patient Goal Desired Activity /State Functional Status Date Assessment Result Facility 03-13-2023 Functional status Patient at [facility] Work Phone: 2022 Functional status Patient at Baseline [facility] Work Phone: 08-05-2022 Functional status Patient at Baseline [facility] Work Phone: 06-13-2022 Functional status Patient at Baseline [facility] Work Phone: Mental Status Date Assessment Result Facility 03-13-2023 Cognitive function Cognitive Sta tus Patient at Baseline [facility] Work Phone: 2022 Cognitive function Cognitive Sta tus Patient at Baseline [facility] Work Phone: 08-05-2022 Cognitive function Cognitive Sta tus Patient at Baseline [facility] Work Phone: 06-13-2022 Cognitive function Cognitive Sta tus Patient at Baseline [facility] Work Phone: Clinical Notes 04-19-2022 to 03-13-2023 Note Date & Type Note Facility 03-13-2023 Discharge summary Note Date/Time March 13, 2023 11:44am [facility] [address] [place] [address] Discharge Summary Signed Patient: Betty Rosenberg MR#: [id number] : 2000 Acct:[id number] Age/Sex: 22 / M Adm Date: 3 Loc: Room: [address] [place] [address]: Shubham Ding MD Copies to: MD Darin Posada [facility]~ Providers Date of Discharge: 03/13/23 Discharging Provider: Shubham Ding Primary Care Provider: Darin Montoya Consults: 03/09/23 10:38 Consult to Case Management Routine Discharge Diagnosis (1) Depression: Final Diagnosis Final Discharge Diagnosis: Major depressive disorder Summary Hospital Course Hospital course: According to admission note: Mr. Rosenberg is a 22 year old male who presented due to concern for depression and suicidal ideation.? He also mentioned homicidal thoughts.? He stated that he would go to a gun range and shoot himself and probably others. Upon assessment, patient reported that he has not been doing well.? He reported that he has still been dealing with a lot of teeth issues.? He reported that they have not fix his teeth yet and it is making it more difficult to eat and heis always in pain.? He reported that he cannot eat because of this and he is frustrated with how this has been managed.? He reported that he stopped taking his medications from last hospitalization because he had some side effects of stomach issues and erectile issues.? He reported that he stopped the medication and still has issues with maintaining his erections.? He did report having appointment with the urologist.? He is open to trying different medications at this time. 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 He tolerated the medication without any problems and did not report any side effects. He had gradual improvement of hissymptoms of depression as time went on. He continued to report some suicidal thoughts and homicidal thoughts however he did not appear to be overly depressedor homicidal. He attended a few groups and socialize with peers. He did not exhibit any behavior concerning for suicidality. He did not exhibit any aggressive behavior during his hospitalization. He was calm and cooperative. He did complain of some chronic pain issues related to his teeth in his mouth. On the day of discharge, he reported that he was doing okay. He denied any depression, suicidality, homicidality as well. He stated that he would continuethe medication and follow-up with outpatient services. Condition Condition at Discharge: Stable Status at Discharge Cognitive/behavioral status at discharge: Mental Status Exam: Appearance: grossly normal Mental Status: mental status grossly normal Mood: Euthymic mood Affect: Normal affect Speech and Movement: speech and movement normal and speech clear Attitude: cooperative Thought Process: normal Thought Content: Denied hallucinations, no homicidality and no suicidality Insight: Good Judgment: Good Functional status at discharge: independent ambulation Overall status at discharge: patient is back to baseline Time Spent with Patient Time spent providing/coordinating discharge services (# min): 30 Exam Physical Exam Vital Signs: Temp Pulse Resp BP Pulse Ox O2 Del Method 98.2 F 87 16 104/73 97 Room Air 03/13/23 07:30 03/13/23 07:30 03/13/23 07:30 03/13/23 07:30 03/13/23 07:30 03/13/23 07:30 Discharge Plan Discharge Plan Patient Disposition: Home Activity: No Activity Restriction Diet: Regular Additional Instructions: Important Contact Information You can call [facility] at [phone] any time day or night if you have emergent questions or question regarding discharge instructions. If at any time you are feeling an increase inyour psychiatric symptoms, call your physician or behavioral healthcare provider. If any time you have thoughts of harming yourself or others contact one of the following: Call (available 08/10) Crisis Text Line (available 08/10) text 4HOPE to [phone] [employer] Line (available 8 a.m. Midnight) call [phone] ([phone]) Regular Diet No Activity Restrictions Instructions: Depression, Adult ([place]), [facility] [place] Instructions Prescriptions: New bupropion HCl 150 mg Tablet Extended Release 24 Hr 150 mg PO QAM 30 Days Qty: 30 0RF Follow Up: [facility] [Other] - 03/19/23 12:45 pm (Psychiatry: Saturday03/19/23 at 12:45pm with REG Araya in [place] office. ) [facility] [Other] - 04/23/23 10:15 am (Counseling: Saturday04/23/23 at 10:15am with Angela Umaña in the [place] office. ) Darin Montoya, [facility]- [Primary Care Provider] - (Please contact for any medical needs or concerns.) Documented By: Shubham Ding MD 03/13/23 1142 Signed By: <Electronically signed by Shubham Ding MD> 03/13/23 1145 [facility] Work Phone: 1(227) 747-707212-27-2023 Hospital Discharge instructions Additional Instructions Important Contact Information You can call [facility] at [phone] any time day or night if you have emergent questions or question regarding discharge instructions. If at any time you are feeling an increase in your psychiatric symptoms, call your physician or behavioral healthcare provider. If any time you have thoughts of harming yourself or others contact one of the following: Call (available 08/10) Crisis Text Line (available 08/10) text 4HOPE to [phone] [facility] Line (available 8 a.m. Midnight) call [phone] ([phone]) Regular Diet No Activity [facility] Work Phone: 1(767) 898-561312-26-2023 Progress note Author Shubham Ding [facility] March 12, 2023 12:38pm Note Date/Time March 12, 2023 12:38pm [facility] [address] [place] [address] Psychiatry Progress Note Signed Patient: Betty Rosenberg MR#: [id number] : 2000 Acct:[id number] Age/Sex: 22 / M Adm Date: 3 Loc: Room: [address] [place] [address] Type : ADM IN Attending Dr: Shubham Ding MD Copies to: ~ Date of Service: 03/12/2023 Subjective Subjective Narrative: Mr. Rosenberg reported that he seems to doing better. He reported that his suicidal homicidal thoughts are improving. He reported that he feels that his thoughts were disturbing he feels like they are gradually getting better. He denied any side effects to current medications at this time. Mental Status Exam: Appearance: grossly normal Mental Status: mental status grossly normal Mood: Improving mood Affect: Improving affect Speech and Movement: speech and movement normal and speech clear Attitude: cooperative Thought Process: normal Thought Content: Denied hallucinations, reported improving homicidality, reported improving suicidality Insight: fair Judgment: fair Exam Physical Exam Vital Signs: Temp Pulse Resp BP Pulse Ox O2 Del Method 98.8 F 90 16 125/73 100 Room Air 03/12/23 07:28 03/12/23 07:28 03/12/23 07:28 03/12/23 07:28 03/12/23 07:28 03/12/23 07:28 Assessment/Plan Assessment/Plan (1) Depression: Plan Patient reported that symptoms have been improving. Potential discharge for Saturday or Continue Wellbutrin 150 mg daily Continue to monitor mental status Encourage group participation and medication compliance Risk benefits alternatives explained Documented By: Shubham Ding MD 03/12/23 123 Signed By: <Electronically signed by Shubham Ding MD> 03/12/23 1238 [facility] Work Phone: 1(760) 678-676912-25-2023 Progress note Author Shubham Ding [facility] March 11, 2023 10:28am Note Date/Time March 11, 2023 10:28am [facility] [address] [place], [place] [id number] Psychiatry Progress Note Signed Patient: Betty Rosenberg MR#: [id number] : 2000 Acct:[id number] Age/Sex: 22 / M Adm Date: 3 Loc: 1S Room: [address] [place] [address] Type : ADM IN Attending Dr: Shubham Ding MD Copies to: ~ Date of Service: 03/11/2023 Subjective Subjective Narrative: Mr. Rosenberg reported that he has noticed some improvement in his depression and his anxiety is low. He continues to report some suicidal thoughts and homicidalthoughts. He denied any side effects from the current medication at this time. Mental Status Exam: Appearance: grossly normal Mental Status: mental status grossly normal Mood: Improving mood Affect: Improving affect Speech and Movement: speech and movement normal and speech clear Attitude: cooperative Thought Process: normal Thought Content: Denied hallucinations, reported intermittent homicidality, reported intermittent suicidality Insight: fair Judgment: fair Exam Physical Exam Vital Signs: Temp Pulse Resp BP Pulse Ox O2 Del Method 98.3 F 72 16 112/70 96 Room Air 03/11/23 07:25 03/11/23 07:25 03/11/23 07:25 03/11/23 07:25 03/11/23 07:25 03/11/23 07:25 Assessment/Plan Assessment/Plan (1) Depression: Plan Patient reported depression has been improving but still having some intermittent suicidal and homicidal thoughts Continue Wellbutrin 150 mg daily Continue to monitor mental status Encourage group participation and medication compliance Risk benefits alternatives explained Documented By: Shubham Ding MD 03/11/23 1028 Signed By: <Electronically signed by Shubham Ding MD> 03/11/23 [facility] Work Phone: 1(918) 160-557712-24-2023 Progress note Author Shubham Ding [facility] March 10, 2023 10:19am Note Date/Time March 10, 2023 10:19am [facility] [address] [place], [place] [id number] Psychiatry Progress Note Signed Patient: Betty Rosenberg MR#: [id number] : 2000 Acct:[id number] Age/Sex: 22 / M Adm Date: 3 Loc: 1S Room: [address] [place] [address] Type : ADM IN Attending Dr: Shubham Ding MD Copies to: ~ Date of Service: 03/10/2023 Subjective Subjective Narrative: Mr. Rosenberg reported that he is doing okay. He reported that his depression is about a 5 out of 10. He denied any current anxiety at this time. He still reported some intermittent suicidal and homicidal thoughts. He is tolerating Wellbutrin at this time. He does complain of some medical issues and pain issues. Mental Status Exam: Appearance: grossly normal Mental Status: mental status grossly normal Mood: dysthymic mood Affect: dysphoric affect Speech and Movement: speech and movement normal and speech clear Attitude: cooperative Thought Process: normal Thought Content: Denied hallucinations, reported intermittent homicidality, reported intermittent suicidality Insight: fair Judgment: fair Exam Physical Exam Vital Signs: Temp Pulse Resp BP Pulse Ox O2 Del Method 97.5 F L 53 L 16 106/67 98 Room Air 03/10/23 07:20 03/10/23 07:20 03/10/23 07:20 03/10/23 07:20 03/10/23 07:20 03/10/23 07:20 Objective Labs Labs: Abnormal Labs 03/10/23 06:12 Cholesterol 117 L Assessment/Plan Assessment/Plan (1) Depression: Plan Patient reported depression has been improving but still having some intermittent suicidal and homicidal thoughts Continue Wellbutrin 150 mg daily Continue to monitor mental status Encourage group participation and medication compliance Risk benefits alternatives explained Documented By: Shubham Ding MD 03/10/23 1018 Signed By: <Electronically signed by Shubham Ding MD> 03/10/23 1019 [facility] Work Phone: 1(253) 787-788212-23-2023 History and physical note Author Shubham Ding [facility] March 09, 2023 10:41am Note Date/Time March 09, 2023 10:41am [facility] [address] [place] [address] Psychiatry H&P Signed Patient: Betty Rosenberg MR#: [id number] : 2000 Acct:[id number] Age/Sex: 22 / M Adm Date: 12/23/2 3 Loc: 1S Room: 3K3435-9 Type: ADM IN Attending Dr: Shubham Ding MD Copies to: MD Darin Posada, [facility]~ Date of Service: 03/09/2023 HPI History of Present Illness History of present illness: Mr. Rosenberg is a 22 year old male who presented due to concern for depression andsuicidal ideation. He also mentioned homicidal thoughts. He stated that he would go to a gun range and shoot himself and probably others. Upon assessment, patient reported that he has not been doing well. He reported that he has still been dealing with a lot of teeth issues. He reported that they have not fix his teeth yet and it is making it more difficult to eat and heis always in pain. He reported that he cannot eat because of this and he is frustrated with how this has been managed. He reported that he stopped taking his medications from last hospitalization because he had some side effects of stomach issues and erectile issues. He reported that he stopped the medication and still has issues with maintaining his erections. He did report having appointment with the urologist. He is open to trying different medications at this time. 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 Review of symptoms: Constitutional: Denies chills and Denies fever(s) Eyes: Denies change in vision ENT: Denies abnormal hearing Cardiovascular: Denies chest pain Respiratory: Denies chest congestion and Denies cough Gastrointestinal: Denies change in bowel habits Genitourinary: Denies dysuria Musculoskeletal: Denies atrophy and Denies myalgias Integumentary/Breasts: Denies dry skin Neurologic: Denies abnormal gait and Denies abnormal movements Psychiatric: Reports depression and suicidal ideation Physical exam: Const: cooperative Nutritional Appearance: average body habitus Orientation: alert, awake and oriented x3 HEENT: Head normal to inspection, hearing grossly normal bilaterally, external nose normal, face symmetric Eyes: appearance normal, both eyes and all related structures, sclerae normal Neck: normal visual inspection and full ROM Resp: normal respiratory effort, able to speak in complete sentences and symmetric chest movement Cardio: regular rate GI: normal to inspection and non-distended : deferred Skin: no rashes or lesions noted Neuro: CNI: Normal olfaction CNI: normal olfaction CNII: Visual vicente intact, CNIII,IV,: EOM intact, no nystagmus. Pupils equal, round, reactive to light and accommodation, CNV: Sensation intact to light touch, ? CNVII: Raises eyebrows, smile/frown, puff out cheeks symmetrically, CNVIII: Hearing intact bilaterally, CNIX,X: Voice normal, soft palate elevation normal, symmetrical, CNXI: Shoulder shrug strong, equal bilaterally, CNXII: Tongue protrusion midline, movement symmetrical. Extrem: normal to inspection and full ROM Mental Status Exam: Appearance: grossly normal Mental Status: mental status grossly normal Mood: dysthymic mood Affect: dysphoric affect Speech and Movement: speech and movement normal and speech clear Attitude: cooperative Thought Process: normal Thought Content: Denied hallucinations, reported homicidality, reported suicidality Insight: fair Judgment: fair [facility] Medical History Anxiety Carpal tunnel syndrome on both sides (~2018) Depression GERD (gastroesophageal reflux disease) Migraines Mood disorder Suicidal ideation TMJ (temporomandibular joint disorder) Surgical History No pertinent past surgical history Family History Father Lung cancer Mother Drug abuse Social History Smoking Status: Never smoker Substance Use Type: Marijuana Social History Comments: dad Meds Medications and Allergies Allergies No Known Allergies Allergy (Verified 08/03/22 08:48) Home Medications No known home meds 03/09/23 [History Confirmed 03/09/23] Exam Physical Exam Vital Signs: Temp Pulse Resp BP Pulse Ox O2 Del Method 97.8 F 71 16 118/80 100 Room Air 03/09/23 10:26 03/09/23 10:26 03/09/23 10:26 03/09/23 10:26 03/09/23 10:26 03/09/23 10:26 Assessment/Plan (1) Depression: Plan Patient presenting due to concern for depression and suicidal ideation. Also reported homicidal ideation Will start Wellbutrin 150 mg daily Continue to monitor mental status Encourage group participation and medication compliance Risk benefits alternatives explained Documented By: Shubham Ding MD 03/09/23 1038 Signed By: <Electronically signed by Shubham Ding MD> 03/09/23 1041 [facility] Work Phone: 1(776) 977-478611-22-2023 History of Present illness Narrative* Onur Kapadia DDS - 02/06/2023 1:57 PM EST ----- Monday, February 06, 2023 at 2:01:57 PM ----- ----- Provider: [id number] Resident Michael -- Clinic: [place] ----- COMPOSITE [facility] Patient is scheduled for Rastafarian on tooth #4 and 5 surface B5. Reviewed Medical History. Pt exhibited the following conditions: No significant medical history Patient is ready for treatment. Topical Benzocaine gel applied at the injection site for 2 minutes. Administered 1 carpules of Articaine, 4% with Epinephrine 1:100,000,. Isolation achieved. Decay/existing pentecostalism removed, cavity prepared. Selectively etched enamel with 37% phosphoric acid, rinsed, and blot dried. OptiBond delaney applied and light-cured. Condensed packable composite shade a2 in light cured increments using Mylar strip and wedge. Finished with finishing burs, checked occlusion, verified proximal contacts and pentecostalism was polished. Rinsed and suctioned intraorally, advised patient to not eat until local anesthesia wears off. POST OPERATIVE RADIOGRAPH TAKEN. Next Visit: Restorative ----- Signed on Monday, February 06, 2023 at 2:08:28 PM ----- ----- Provider: [id number] Tessa Troncoso DDS -- Clinic: [place] ----- documented in this [id number] Telephone encounter Note* Telephone Encounter - Karla Tony - 12/28/2022 1:30 PM EDT Situation: UPDATE Background: Pt would like Provider Suri to msg him on mychart. Pt states he is unable to msg provider because their msgs have . Pt would like to stay in contact with provider via [employer] in order to schedule his trigger point appts. Pt does not want to call in to be scheduled. Pt last seen 11/16/22 w [facility] Assessment: n/a Recommendation: VIDHYA Thank you :) [facility] [id number] Miscellaneous Notes* Telephone Encounter - Karla Tony - 12/28/2022 1:30 PM EDT Situation: UPDATE Background: Pt would like Provider Suri to msg him on mychart. Pt states he is unable to msg provider because their msgs have . Pt would like to stay in contact with provider via [employer] in order to schedule his trigger point appts. Pt does not want to call in to be scheduled. Pt last seen 11/16/22 w [facility] Assessment: n/a Recommendation: VIDHYA Thank you :) Msg sent to [facility] on 12/28/22 documented in this [id number] History of Present illness Narrative* Alfonzo Mccord DDS - 11/16/2022 12:00 AM EDT ----- Saturday, November 16, 2022 at 11:09:37 AM ----- ----- Provider: [id number] Mccord, Fellow -- Clinic: [place] ----- Patient returned for trigger point injections cycle 1 # 3 Referring physician: Cherise Ramirez MD DMD Reiterated the importance of maintaining regular appointments for TPI, pursuing PT and [facility]. Reports good pain relief after TPI Impression: F41.1 anxiety, F45.8 bruxism, G44.8 TMD associated headache, M26.623 arthralgia TMJ bilateral, M67.90 tendonitis temporalis and M79.11 myalgia muscles mastication Depression (not very well managed) (multiple ER visits due to SI in the recent past) Anorexia Vitals: BP: 110/80 Pulse: 82 Oxygen:98 Plan: Trigger point injections: done today, prep with alcohol, IFC signed. Explained risks and benefits, including pain, swelling, hemorrhage, CN VII involvement. Mepivacaine 3% on bilateral, masseter (0.4 cc), temporalis tendon extraoral (#0.1 cc) Rested 5 min to observe for AEs. Plan: 1. Continue TPI 2. Pursue PT 3. Continue getting restorative work done NV: TPI cycle 1 #4 Advised to bring ESPANA at next restorative visit so we can try to adjust fillings so that ESPANA fits Teaching Attending Note: I saw and evaluated the patient. I personally obtained the valencia and critical portions of the historyand physical exam. I reviewed the resident's /fellow's documentation and discussed the patient withthe resident. I agree with the resident's medical decision making as documented in the resident's note. ----- Signed on Saturday, November 19, 2022 at 9:53:55 PM ----- ----- Provider: [id number] Tessa Cruz DMD -- Clinic: [place] ----- documented in this [id number] History of Present illness Narrative* Javed Mendez DDS - 10/11/2022 11:19 AM EDT ----- September at 2:40:08 PM ----- ----- Provider: [id number] Resident Tee -- Clinic: [place] ----- COM[employer] Patient is scheduled for Rastafarian on tooth #31 surface MOLB. Reviewed Medical History. Pt exhibited the following conditions: nothing mentioned in EPIC Patient is ready for treatment. Topical Benzocaine gel applied at the injection site for 2 minutes. Administered 1 carpules of Lidocaine, 2% with Epinephrine 1:100,000,. Rubber dam isolation achieved. Decay/existing pentecostalism removed, cavity prepared. Augustine Lite Selectively etched enamel with 37% phosphoric acid, rinsed, and blot dried. Xeno IV delaney applied and light-cured. Condensed packable composite shade A2 in light cured increments using Toffelmaire matrix band retainer and wedge. Finished with finishing burs, checked occlusion, verified proximal contacts and pentecostalism was polished. Rinsed and suctioned intraorally, advised patient to not eat until local anesthesia wears off. POST OPERATIVE Bitewing (single) RADIOGRAPH TAKEN. NOTE: Patient had filling same tooth in 08/23/22 , filling fall out from lingual side. Soft decay was found and removed. it was too deep . patient was informed that tooth might need RCT and crown or ext later due to large filling size. patient has poor OH ... billed before for OL, today we re did those surfaces (didn't bill for them) with the new filling. Next Visit: Restorative ----- Signed on , October 11, 2022 at 2:57:24 PM ----- ----- Provider: Michael Troncoso DDS -- Clinic: [place] ----- documented in this [id number] NoteDisruptive Behavior Progress Note Betty Rosenberg 2000 [id number] Type of disruptive behavior: Inappropriate verbal behavior and Threatening or abusive language (including derogatory racial or sexual remarks) Situation: Repeated messages through intelworks Interventions attempted: Patient Relations notified, will escalate Past medical history: No past medical history on file. Past social history: Social History Tobacco Use Smoking status: Every Day Types: Cigars Smokeless tobacco: Never Tobacco comments: Patient stated that he smokes marijuana cigars on a daily basis.[facility] [id number] History of Present illness Narrative* Erum Laboy DDS - 10/08/2022 9:58 AM EDT Disruptive Behavior Progress Note Betty Rosenberg 2000 [id number] Type of disruptive behavior: Inappropriate verbal behavior and Threatening or abusive language (including derogatory racial or sexual remarks) Situation: Repeated messages through MyChart Interventions attempted: Patient Relations notified, will escalate Past medical history: No past medical history on file. Past social history: Social History Tobacco Use Smoking status: Every Day Types: Cigars Smokeless tobacco: Never Tobacco comments: Patient stated that he smokes marijuana cigars on a daily basis. documented in this [id number] Discharge summary Author Brandon cancino [facility] 2022 7:45am Note Date/Time 2022 7:45 am [facility] [address] [place] [address] Discharge Summary Signed Patient: Betty Rosenberg MR#: [id number] : 2000 Acct:[id number] Age/Sex: 22 / M Adm Date: 3 Loc: Room: [address] [place] [address]: Shubham Ding MD Copies to: MD Shubham Jones MD Lucas T Shammo, [facility]~ Providers Date of Discharge: 10/03/22 Discharging Provider: Tana Ca Primary Care Provider: Darin Montoya Discharge Diagnosis (1) Depression: (2) Tooth ache: Final Diagnosis Final Discharge Diagnosis: Depression Summary Hospital Course Hospital course: Mr. Rosenberg is a 21 year old male who presented due to concern for depression andsuicidal ideation. Upon assessment, patient is known to me from prior hospitalizations.? He continues to complain of pain in his jaw.? He reported that no one will help himwith this.? However he does report threatening at the dentist after he missed anappointment.? He stated that he has been feeling depressed and suicidal over thepast 1 month.? He reported that he has voiced this to his dad, but feels like hedoes not care.? He stated that he does not feel like the medications are helpinghim too much.? He stated that there are times that he stops taking it and he does not feel suicidal anymore.? His main focus is on the teeth pain. Past psych history: depression Past hospitalizations: History of past psychiatric hospitalizations for similar symptoms Past suicide attempts: Denies Family psych history: Unknown Previous medications: Zoloft, Seroquel, Abilify, gabapentin, Remeron, Cymbalta Alcohol and drug use: Reported marijuana use Living: With family Employment: Stated that he is in school Review of symptoms: Constitutional: Denies chills and Denies fever(s) Eyes: Denies change in vision ENT: Denies abnormal hearing Cardiovascular: Denies chest pain Respiratory: Denies chest congestion and Denies cough Gastrointestinal: Denies change in bowel habits Genitourinary: Denies dysuria Musculoskeletal: Denies atrophy and Denies myalgias Integumentary/Breasts: Denies dry skin Neurologic: Denies abnormal gait and Denies abnormal movements Psychiatric: Reports depression and suicidal ideation Course of Treatment: The patient was familiar with the mental health therapy services available to him while on the unit and was encouraged to participate. We discussed medicationrisks, benefits and indications in details. He was open to trying psychopharmacological treatment. His medications were adjusted and Lexapro was added to help with depression. He said chronic pain is the main cause of his depression. He felt that his symptoms have improved on the current medication regimen. He has been compliant with treatment and reported no side effects. His sleep and appetite were okay. The patient was attending groups and described them as helpful in building coping skills. He denied any access to firearms or lethal weapons. His symptoms improved and his affect became brighter. He was social with peers on the unit and indicated that he learned a lot to improve his mental health. He felt better than before coming to the hospital and hopeful about his future. He described both his depression and anxiety as mild rating of both at 1 out of 10, with ten being the worst. He said his mental health symptoms are not interfering with his ability to function. Staff noted improvement of his symptoms as documented in nursing. He has been denying SI/HI or AVH to multiple members of the treatment team. He did not exhibit any disorganized behavior nor appeared to be experiencing auditory hallucinations orexpressing delusions. He did not show any behavior concerning for behzad. He was much more insightful compared to the time of admission. He understands the importance of outpatient therapy to ensure the stability of symptoms. He denied suicidal or homicidal ideation and verbalized the intent to notify the staff if he has such thoughts. No suicidal or self-injurious behaviors occurred during inpatient treatment. He said he is feeling happy today because it is hisithday. achieved maximum benefit from attending inpatient treatment and was suitable for outpatient follow up. He understands how to utilize resources suchas calling the hotline if he has any SI/HI. He learned how to stay positive and manage his stress in a healthier way. I explained to the patient that discharge from the hospital does not mean that medical care ends here. He needs consistent outpatient psychiatric follow-up, cognitive behavioral therapy, and PCP visits to ensure stability of symptoms. His three wishes include maintain better health, keep a positive outlook in life, and make good money Patient's illness, medication side effects, benefits and risks were reviewed with the patient prior to discharge. The patient voiced understanding of their diagnosis, the medications recommended along with the importance of medication compliance. The patient was counseled not to stop medications without the supervision of a psychiatrist. The patient was on awake counselor to follow-up with their outpatient medical provider as indicated. The patient was counseled that if there was an increase in mental health issues, depression, anxiety, medication side effects, self harm or thoughts of harm to others, the patient was not to harm them self or stop treatment, but to call [facility], 911 or come to the nearest emergency room. The patient also received information regarding advancedmental and medical health directives during this hospitalization to discuss their outpatient provider. The plan was discussed with the patient, the nurses and the social work department. The patient voiced agreement with the plan. Discharge disposition home with dad, coordinated by case management Safe discharge Planning: With the cessation of all suicidal ideation, improvements in mood, and with a cessation of any psychotic process, aftercare plans were solidified. The patient was able to formulate a believable safety plan. Discharge plans were discussed with the patient, his family, and the treatment team. All agreed withthe discharge plan. On the day of discharge, he was evaluated and had no complaints. He denied any SI/HI. He felt hopeful, motivated and agreed to follow up with outpatient treatment as arranged by case management. Suicide risk assessment: A thorough review of protective and risk factors was conducted during this admission. Discussed with the patient the following recommendations that would help reduce suicide which include limiting the numberof pills to a 14-day supply with one refill at the time of discharge to avoid potential overdose, involving family members in his care, consistent outpatient follow up preferably within seven days of release, and his desire to live. He reported a good therapeutic alliance, good response to medication management andtherapy, availability of local mental health services and willingness to follow up, lack of suicidal ideation, behvaior, intent or plan, lack of impulsivity, agitation, or psychosis. Pt is future-oriented and understands the importance ofoutpatient follow-up. The presence of positive factors like family and pancho, lack of access to firearms, and desire to continue his treatment is consistent with a safe discharge plan. Psychiatric experts agree that it is impossible to predict suicide. Given the chronic risk of suicide, we discussed a plan to help him long-term safety. The patient is not suicidal or psychotic now. To help decrease his suicide risk, as best I can, I am referring him for outpatient treatment including but not limited to medication management for long-term follow-up to have somewhere to goand someone to manage him as symptoms and stressors develop. This is the best way to keep him alive. So, we discussed a crisis plan for future suicidality: atthe first sign of distress, he will call the hotline; if this is not sufficient,he will 911, then call family members or friends; ultimately, he will come to the ER. MSE: Orientation: Alert and oriented to person, place, and time. Appearance/Behavior: Fair grooming and hygiene, calm, cooperative, engaged in the interview. Good eye contact. Normal psychomotor activity. Speech: regular rate, rhythm, volume, and tone. Non pressured. Knowledge: Appropriate for age and level of education Mood: okay Affect: reactive, mood-congruent Thought process: linear, logical, and goal-oriented Thought content: No SI/HI. No AVH. No delusions. He does not appear to be responding to internal stimuli. Concentration: Grossly intact based on track during the interview Associations: No loosening of associations Memory: Able to recall recent and remote historical information Insight: Fair, able to appreciate current symptoms and need for outpatient treatment Judgment: fair, agreed to follow treatment recommendations. Safety: The patient is not acutely psychotic, suicidal or homicidal and can continue treatment on an outpatient basis. He was made aware of the 08/10 emergency services of the crisis center and was advised to call 911 or go to the nearest ER in case of a crisis ( (including having thoughts of harming himself or others). Risks (metabolic, EPS, the effect on heart), benefits, and alternatives for all prescribed medications were discussed with the patient. His consent was obtained. He was advised not to drink alcohol while taking medications. Advised the use of drugs can make patient more impulsive leading to poor decisions and increasing his risk of suicide. Continue supportive therapy with some CBT techniques. Time spent discussing smoking cessation with patient: more than 10 minutes Condition Condition at Discharge: Stable Status at Discharge Functional status at discharge: independent ambulation Time Spent with Patient Time spent providing/coordinating discharge services (# min): 99 Exam Physical Exam Vital Signs: Temp Pulse Resp BP Pulse Ox O2 Del Method 98.3 F 98 H 16 120/76 98 Room Air 10/02/22 20:12 10/02/22 20:12 10/02/22 20:12 10/02/22 20:12 10/02/22 20:12 10/02/22 20:12 Discharge Plan Discharge Plan Patient Disposition: Home Activity: No Activity Restriction Diet: Regular Prescriptions: New mirtazapine 15 mg Tablet 15 mg PO QHS 15 Days Qty: 15 1RF aripiprazole 10 mg Tablet 10 mg PO QHS Qty: 15 0RF escitalopram oxalate 5 mg Tablet 5 mg PO DAILY 15 Days Qty: 15 1RF trazodone 50 mg Tablet 50 mg PO QHS PRN (Reason: Insomnia) 15 Days Qty: 15 0RF Continued lamotrigine [Lamictal] 25 mg tablet 50 mg PO DAILY Patient Comments: TAKE 2 TABLETS BY MOUTH IN THE MORNING Discontinued aripiprazole 5 mg tablet 5 mg PO QHS Patient Comments: TAKE 1 TABLET BY MOUTH AT BEDTIME mirtazapine 7.5 mg tablet 7.5 mg PO QHS Patient Comments: TAKE 1 TABLET BY MOUTH AT BEDTIME duloxetine 60 mg Capsule,Delayed Release(Dr/Ec) 60 mg PO DAILY Qty: 0 0RF Follow Up: [facility] [Other] [facility] Hotline [Outside] Darin Montoya, [employer] OPERATOR[employer] [Primary Care Provider] - (Contact primary provider withany medical needs. ) Documented By: Brandon Ca MD [id number] Signed By: <Electronically signed by Branodn Ca MD> 10/03/22 0745 [facility] Work Phone: [phone]) 300-400207-18-2023 Progress note Author Brandon cancino [facility] October 02, 2022 7:32am Note Date/Time October 02, 2022 7:33 am [facility] [address] [place] [address] Psychiatry Progress Note Signed Patient: Betty Rosenberg MR#: [id number] : 2000 Acct:[id number] Age/Sex: 21 / M Adm Date: 3 Loc: Room: [address] [place] [address] Type : ADM IN Attending Dr: Shubham Ding MD Copies to: ~ Date of Service: 10/02/2022 Subjective Subjective Narrative: Mr. Rosenberg reported that he is feeling much better. Anxiety is moderate in intensity with attempted utilization of coping skills. He rated his depression at 4 out of 10 with 10 being the worst. He denies SI/HI and verbalized the intent to notify staff if he has such thoughts. His symptoms improving his affect is becoming brighter.. He continues to be compliant with prescribed medications and is visible within the unit milieu. He alluded to TMJ pain being the primary issue that he is struggling with.We have agreed to continue the current medications regimen. Risks, benefits, and indications of medicationswere discussed. Appearance: dressed casually Mental Status: mental status grossly normal Mood: Euthymic mood Affect: Normal affect Speech and Movement: speech and movement normal and speech clear Attitude: cooperative Thought Process: normal Thought Content: Denied hallucinations, no homicidality and no suicidality Insight: fair Judgment: fair Impulse control: fair Exam Physical Exam Vital Signs: Temp Pulse Resp BP Pulse Ox O2 Del Method 99.1 F H 98 H 18 116/77 99 Room Air 10/01/22 19:42 10/01/22 19:42 10/01/22 19:42 10/01/22 19:42 10/01/22 19:42 10/01/22 19:42 Assessment/Plan Assessment/Plan (1) Depression: Code(s): F32.A - Depression, unspecified Status: Acute (2) Tooth ache: Code(s): K08.89 - Other specified disorders of teeth and supporting structures Status: Acute Plan Patient reports feeling better and has no SI/HI. Continue Lexapro 5 mg PO Q daily to help with depression and anxiety. Continue Remeron 15 mg at bedtime, Abilify 10 mg at bedtime, Lamictal 50 mg daily Continue to monitor mental status Encourage group participation and medication compliance Risk benefits alternatives explained Documented By: Brandon Ca MD [id number] Signed By: <Electronically signed by Brandon Ca MD> 10/02/22 0732 [facility] Work Phone: 1(805) 434-879907-17-2023 Progress note Author Brandon cancino [facility] October 01, 2022 7:40am Note Date/Time October 01, 2022 7:37 am [facility] [address] [place] [address] Psychiatry Progress Note Signed Patient: Betty Rosenberg MR#: [id number] : 2000 Acct:[id number] Age/Sex: 21 / M Adm Date: 3 Loc: Room: [address] [place] [address] Type : ADM IN Attending Dr: Shubham Ding MD Copies to: ~ Date of Service: 10/01/2022 Subjective Subjective Narrative: Mr. Rosenberg reported that his suicidal thoughts are still intermittent due to pain associated with TMJ. He rated his suicidal thoughts were 8 out of 10 with 10 being prior to admission but currently at 4 out of 10 with 10 being the worst. He said relationship is good with brother and dad. He denied any psychosis or behzad. He is tolerating his current medication and denied any side effects from the increased doses. He follows up with [facility] in [place]. He has not tried Lexapro before. He stated that his appetite is minimal but he hasbeen eating okay. He said dad is giving him his opiate medications and they are not effective. He said Gabapentin is partially effective. Mental Status Exam: Appearance: grossly normal Mental Status: mental status grossly normal Mood: dysthymic mood Affect: dysphoric affect Speech and Movement: speech and movement normal and speech clear Attitude: cooperative Thought Process: normal Thought Content: Denied hallucinations, no homicidality, reported suicidality Insight: fair Judgment: fair Exam Physical Exam Vital Signs: Temp Pulse Resp BP Pulse Ox O2 Del Method 98.7 F 84 18 118/69 98 Room Air 09/30/22 20:05 09/30/22 20:05 09/30/22 20:05 09/30/22 20:05 09/30/22 20:05 09/30/22 20:05 Assessment/Plan Assessment/Plan (1) Depression: Code(s): F32.A - Depression, unspecified Status: Acute (2) Tooth ache: Code(s): K08.89 - Other specified disorders of teeth and supporting structures Status: Acute Plan Patient still reporting depression and suicidal ideation due to TMJ and dental problems. Add Lexapro 5 mg PO Q daily to help with depression and anxiety. Continue Remeron 15 mg at bedtime, Abilify 10 mg at bedtime, Lamictal 50 mg daily Continue to monitor mental status Encourage group participation and medication compliance Risk benefits alternatives explained Documented By: Brandon Ca MD 3 [id number] Signed By: <Electronically signed by Brandon Ca MD> 10/01/22 0740 [facility] Work Phone: 1([phone]) 344-566207-16-2023 Progress note Author Shubham Ding [facility] September 30, 2022 12:42pm Note Date/Time September 30, 2022 12:4 2pm [facility] [address] [place] [address] Psychiatry Progress Note Signed Patient: Betty Rosenberg MR#: [id number] : 2000 Acct:[id number] Age/Sex: 21 / M Adm Date: 3 Loc: 1S Room: [address] [place] [address] Type : ADM IN Attending Dr: Shubham Ding MD Copies to: ~ Date of Service: 09/30/2022 Subjective Subjective Narrative: Mr. Rosenberg reported that he is still dealing with a lot of pain. He reported that he still has suicidal thoughts. He is tolerating his current medication and denied any side effects from the increased doses. He stated that his appetite is minimal but he has been eating okay. Mental Status Exam: Appearance: grossly normal Mental Status: mental status grossly normal Mood: dysthymic mood Affect: dysphoric affect Speech and Movement: speech and movement normal and speech clear Attitude: cooperative Thought Process: normal Thought Content: Denied hallucinations, no homicidality, reported suicidality Insight: fair Judgment: fair Exam Physical Exam Vital Signs: Temp Pulse Resp BP Pulse Ox O2 Del Method 97.5 F L 92 H 18 133/84 99 Room Air 09/30/22 07:30 09/30/22 07:30 09/30/22 07:30 09/30/22 07:30 09/30/22 07:30 09/30/22 09:00 Assessment/Plan Assessment/Plan (1) Depression: Code(s): F32.A - Depression, unspecified Status: Acute Plan Patient still reporting depression and suicidal ideation We will try to assist with local dental care if possible Continue Remeron 15 mg at bedtime, Abilify 10 mg at bedtime, Lamictal 50 mg daily Continue to monitor mental status Encourage group participation and medication compliance Risk benefits alternatives explained Documented By: Shubham Ding MD 09/30/22 124 Signed By: <Electronically signed by Shubham Ding MD> 09/30/22 [facility] Work Phone: [phone]) 442-503507-15-2023 History and physical note Author Shubham Ding [facility] September 29, 2022 1:14pm Note Date/Time September 29, 2022 1:13 pm [facility] [address] [place] [address] Psychiatry H&P Signed Patient: Betty Rosenberg MR#: [id number] : 2000 Acct:[id number] Age/Sex: 21 / M Adm Date: 3 Loc: Room: [address] [place] [address] Type: ADM IN Attending Dr: Shubham Ding MD Copies to: MD Darin Posada [facility]~ Date of Service: 09/29/2022 HPI History of Present Illness History of present illness: Mr. Rosenberg is a 21 year old male who presented due to concern for depression andsuicidal ideation. Upon assessment, patient is known to me from prior hospitalizations. He continues to complain of pain in his jaw. He reported that no one will help himwith this. However he does report threatening at the dentist after he missed anappointment. He stated that he has been feeling depressed and suicidal over thepast 1 month. He reported that he has voiced this to his dad, but feels like hedoes not care. He stated that he does not feel like the medications are helpinghim too much. He stated that there are times that he stops taking it and he does not feel suicidal anymore. His main focus is on the teeth pain. Past psych history: depression Past hospitalizations: History of past psychiatric hospitalizations for similar symptoms Past suicide attempts: Denies Family psych history: Unknown Previous medications: Zoloft, Seroquel, Abilify, gabapentin, Remeron, Cymbalta Alcohol and drug use: Reported marijuana use Living: With family Employment: Stated that he is in school Review of symptoms: Constitutional: Denies chills and Denies fever(s) Eyes: Denies change in vision ENT: Denies abnormal hearing Cardiovascular: Denies chest pain Respiratory: Denies chest congestion and Denies cough Gastrointestinal: Denies change in bowel habits Genitourinary: Denies dysuria Musculoskeletal: Denies atrophy and Denies myalgias Integumentary/Breasts: Denies dry skin Neurologic: Denies abnormal gait and Denies abnormal movements Psychiatric: Reports depression and suicidal ideation Physical exam: Const: cooperative Nutritional Appearance: average body habitus Orientation: alert, awake and oriented x3 HEENT: Head normal to inspection, hearing grossly normal bilaterally, external nose normal, face symmetric Eyes: appearance normal, both eyes and all related structures, sclerae normal Neck: normal visual inspection and full ROM Resp: normal respiratory effort, able to speak in complete sentences and symmetric chest movement Cardio: regular rate GI: normal to inspection and non-distended : deferred Skin: no rashes or lesions noted Neuro: CNI: Normal olfaction CNI: normal olfaction CNII: Visual vicente intact, CNIII,IV,: EOM intact, no nystagmus. Pupils equal, round, reactive to light and accommodation, CNV: Sensation intact to light touch, CNVII: Raises eyebrows, smile/frown, puff out cheeks symmetrically, CNVIII: Hearing intact bilaterally, CNIX,X: Voice normal, soft palate elevation normal, symmetrical, CNXI: Shoulder shrug strong, equal bilaterally, CNXII: Tongue protrusion midline, movement symmetrical. Extrem: normal to inspection and full ROM Mental Status Exam: Appearance: grossly normal Mental Status: mental status grossly normal Mood: dysthymic mood Affect: dysphoric affect Speech and Movement: speech and movement normal and speech clear Attitude: cooperative Thought Process: normal Thought Content: Denied hallucinations, no homicidality, reported suicidality Insight: fair Judgment: fair PMFSH Vaccinated for COVID-19?: Unknown Medical History Anxiety Carpal tunnel syndrome on both sides (~2018) Depression GERD (gastroesophageal reflux disease) Migraines Mood disorder Suicidal ideation TMJ (temporomandibular joint disorder) Surgical History No pertinent past surgical history Family History Father Lung cancer Mother Drug abuse Social History Smoking Status: Never smoker Substance Use Type: Marijuana and Hallucinogens Social History Comments: dad Meds Medications and Allergies Allergies No Known Allergies Allergy (Verified 08/03/22 08:48) Home Medications aripiprazole 5 mg tablet 5 mg PO QHS 08/03/22 [History Confirmed 09/28/22] lamotrigine 25 mg tablet (Lamictal) 50 mg PO DAILY 08/03/22 [History Confirmed 09/28/22] mirtazapine 7.5 mg tablet 7.5 mg PO QHS 08/03/22 [History Confirmed 09/28/22] duloxetine 60 mg capsule,delayed release 60 mg PO DAILY #0 caps 08/05/22 [Rx Confirmed 09/28/22] Exam Physical Exam Vital Signs: Temp Pulse Resp BP Pulse Ox O2 Del Method 98.1 F 68 16 112/68 98 Room Air 09/29/22 07:30 09/29/22 07:30 09/29/22 07:30 09/29/22 07:30 09/29/22 07:30 09/29/22 07:30 Assessment/Plan (1) Depression: Code(s): F32.A - Depression, unspecified Status: Acute Plan Patient presenting due to concern for depression and suicidal ideation Increase Remeron 15 mg at bedtime, will discontinue Cymbalta Increase Abilify 10 mg at bedtime Continue Lamictal 50 mg daily Continue to monitor mental status Encourage group participation and medication compliance Risk benefits alternatives explained Documented By: Shubham Ding MD 09/29/22 1311 Signed By: <Electronically signed by Shubham Ding MD> 09/29/22 1314 [facility] Work Phone: 1(882) 529-823507-13-2023 History of Present illness Narrative* Alfonzo Mccord DDS - 09/27/2022 12:00 AM EDT ----- September at 5:36:14 PM ----- ----- Provider: [id number] Tessa Mccord, Candy -- Clinic: [place] ----- 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 Reviewed patient's medical history. Patient is ready for treatment. An Occlusal Bite Guard was fitted in the patient's mouth. Occlusion checked and adjusted. The patient has been instructed to wear the bite guard at night. The patient has also been encouraged to wear the guard any time they are biting or grinding their teeth. Patient returned for trigger point injections cycle 1 # 1 ( re-start cycle due to multiple missed appointments) Referring physician: Cherise aRmirez MD DMD HPI: Muscles of mastication are tender to palpation R>L . BERT : 32. Reiterated the importance ofmaintaining regular appointments for TPI, pursuing PT and regular care with [facility] for restorative work. Pt states he 'forgets' to make appointment for PT. He lives 2 hours away and his father drives him to his appointments. Impression: F41.1 anxiety, F45.8 bruxism, G44.8 TMD associated headache, M26.623 arthralgia TMJ bilateral, M67.90 tendonitis temporalis and M79.11 myalgia muscles mastication Depression (not very well managed) (multiple ER visits due to SI in the recent past) Anorexia Vitals: BP: 125/80 Pulse: 87 Oxygen:94 Plan: Trigger point injections: done today, prep with alcohol, IFC signed. Explained risks and benefits, including pain, swelling, hemorrhage, CN VII involvement. Mepivacaine 3% on bilateral, masseter (0.4 cc), temporalis tendon extraoral (#0.1 cc) and SCM (#0.2 cc) Rested 5 min to observe for AEs. NOTE: Patient refuses to try muscle relaxants. Advised taking a muscle relaxant before dental appointments to facilitate smoother and more comfortable care and possibility of doing multiple fillings at a visit like the patient wishes, but he declined. He informed me that his father gives him gabapentin and opioids for pain relief which in the patient's opinion work better. Advised against this, bu t patient refuses to take provider's advise. Plan: 1. Consider SW closer to patient's home at next visit. 2. Pursue PT 3. Continue ESPANA use and TPI 4. Reinforced need for restorative care. Continue getting restorative work done (depending on patient's tolerance level and ability to open) while we continue to provide care for TMD NV: TPI cycle 1 #2 and ESPNAA follow up Teaching Attending Note: I saw and evaluated the patient. I personally obtained the valencia and critical portions of the historyand physical exam. I reviewed the resident's /fellow's documentation and discussed the patient withthe resident. I agree with the resident's medical decision making as documented in the resident's note. 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 Reviewed Medical History. Pt exhibited the following conditions: No significant medical history Patient is ready for treatment. Topical Benzocaine gel applied at the injection site for 2 minutes. Administered 1 carpules of Lidocaine, 2% with Epinephrine 1:100,000,. Isolation achieved. Decay/existing pentecostalism removed, cavity prepared. Selectively etched enamel with 37% phosphoric acid, rinsed, and blot dried. OptiBond delaney applied and light-cured. Condensed packable composite shade a3 in light cured increments using Toffelmaire matrix band retainer and wedge. Finished with finishing burs, checked occlusion, verified proximal contacts and pentecostalism was polished. Rinsed and suctioned intraorally, advised patient to not eat until local anesthesia wears off. POST OPERATIVE Periapical (single) RADIOGRAPH TAKEN. NOTE: Next Visit: Restorative ----- Signed on Saturday, February 25, 2023 at 5:04:28 AM ----- ----- Provider: [id number] Cruz DMD -- Clinic: [place] ----- documented in this [id number] History of Present illness Narrative* Erma Riley DDS - 09/05/2022 10:13 AM EDT documented in this [id number] History of Present illness Narrative* Esther Menard DMD - 07/16/2022 10:44 AM EDT ----- Saturday, July 16, 2022 at 11:59:28 AM ----- ----- Provider: Noreen Menard DMD -- Clinic: [place] ----- INITIAL/COMPREHENSIVE EXAM Patient presents for an Initial Examination. Reviewed patient's medical history. Patient has a history of: Patient sees psychiatrist for mental health. Medications checked on Epic. No contraindications, patient is ready for treatment. Patient'schief complaint: Comp Exam Pain Scale: 4/10 Radiographs taken today were: 4 Bitewings Clinical Examination reveals: Decay Soft tissue evaluation: Within Normal Limits TMJ evaluation: Normal TMJ Completed current status of dentition on the charting. Went over needs and treatment plan options with the patient. OHI were discussed with the patient. Written Instructions/AVS were also handed to the patient. Pt Concern: Full Exam was successfully done. Patient consented to the treatment plan. PRIOR: Not needed NOTE: Patient presented for comprehensive exam today. BWs taken. Pano exists from May of this year. Patient has generalized caries, decalcification, and irritated gingiva. He also has generalized calculus and plaque build up. Patient reported that #15 bothers him some times when he eats sweets. Clinically only a buccal shell remains of #15 - to restore it tooth would require RCT, post and core, and crown. Patient wants toEXT the tooth. Patient said by time I get back here to get the bottom tooth fixed too it'll also need yanked out. In reference to #18, which does have large caries present. Rx: Prevident 5000 and instructed patient on how to use it. Patient asked if he would be better off just having all his teeth taken out and having all implantsput in because he has not been able to eat in years due to pain. He described a pinched nerve sensation or possible arthritis over his right eye. He also reported that he is anorexic. Explained to patient that since he is so young, he is not done physically growing yet for implants or implant re tained prostheses. Also explained that he should start taking care of his teeth and once we have all of his cavities taken care of, #15 EXT, and continued treatment for his TMJ he should start to feel better. When asked about his anorexia patient reported that he sees a psychiatrist, but every timethe doctor sends him to a counselor to talk to they commit him to the psych donnelly. He also reported that his father, who brings him, is dying and will most likely be in a year to a year and a half. Informed patient that I am going to discuss a pause on his occlusal guard fabrication due to the amount of work he needs to have done so that it will fit - will talk to Dr. Danielson about his case. Possible chance that treatment should not be delayed due to patient's TMJ issues. Next Visit: Restorative - as much as patient can tolerate - start with #18 and other LL camryn. Okayfor patient to be seen by [facility] documented in this [id number] History of Present illness Narrative* Cherise Ramirez DMD, MD - 06/18/2022 3:46 PM EDT Follow up incorrectly scheduled. Patient thought appointment was with Dr. Danielson. Directed patient to call Dentistry to schedule follow up appointment. Cherise Ramirez DMD, MD documented in this [id number] History of Present illness Narrative* Erum Laboy DDS - 06/14/2022 12:00 AM EDT ----- May at 1:34:44 PM ----- ----- Provider: Kenji Laboy, Fellow -- Clinic: [place] ----- Chief complaint - Patient presented with chief complaint: I have been in pain for years Referring physician: Cherise Ramirez MD, DMD Notably admitted by psych ED after visit with OMFS re: SI and now discharged. Describes pain as pinched nerve in the neck and carpal tunnel on R [does not appear to have formal diagnosis], was told elsewhere that the joint on R is out of alignment. OMFS impression myofascial pain, TMJ WNL. Patient's commute to [facility] is 1.5 hours Location - bilateral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 Encounter - Martine Rivas - 06/08/2022 10:17 AM EDT PT called in stating he's experiencing an intense amount of pain and that its so unbearable that hewants to kill himself. I spoke to Becca and she gave the PT the soonest appt which is next 06/14 @ 8 am at [facility] oral surgery. Please call PT at your earliest convenience [phone]. PT would like to speak to you regarding another Xray he had received from another facility. * Telephone Encounter - Cherise Ramirez DMD, MD - 06/05/2022 11:10 AM EDT Returned patients call and inquired about his symptoms. He states he sees a surgeon for carpal tunnel and that the surgeon cant due surgery for him and he knows that his TMJ is pinching a nerve in his neck and that's causing his symptoms. Attempted to explain to patient that the TMJ cannot cause numbness in the arm or a pinched nerve in the neck. Patient then cut me off and stated well my neckis very tight and I know I have a pinched nerve . I explained that his neck tightness can certainlybe caused by a spasms from strained muscles around the joint as a result of his clenching and grinding and that we do have ways we can help with getting those muscles to relax with bite splint therapy and muscle relaxants and NSAID's. Patient stated he uses that and noticed when he does take Flexeril it helps. Reviewed how patient is using the medications and he stated he is taking the Flexeril at nighttime mostly and at most morning and night, and that he uses the Ibuprofen 2x a day only. Advised him that the since he noted improvement with Flexeril this is a great sign and we can actually switch to Robaxin 3x a day, which is stronger and not sedating and I suspect will give him more relief. Also advised that the Ibuprofen should be taken 4x/day. New prescriptions sent to pharmacy. Advised patient to stop taking Flexeril once he starts Robaxin. Patient also stated I know my TMJ pain is coming from missing teeth and I want implants . 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 Danielson to be evaluated and have a bite splint made. He voiced understanding. Cherise Ramirez DMD, MD * Telephone Encounter - Shaina Heath 06/05/2022 10:54 AM EDT Patient was recently evaluated by Dr. Ramirez for TMJ. Asked to make 6 week FU appointment however, he is experiencing an intense amount of pain. Requesting a sooner appointment but I do not show availability. States he was in the [place] ER yesterday and told to immediately FU with his oral surgery provider. Please advise. [phone] documented in this [id number] Telephone encounter Note* Telephone Encounter - Cherise Ramirez DMD, MD - 06/05/2022 11:10 AM EDT Returned patients call and inquired about his symptoms. He states he sees a surgeon for carpal tunnel and that the surgeon cant due surgery for him and he knows that his TMJ is pinching a nerve in his neck and that's causing his symptoms. Attempted to explain to patient that the TMJ cannot cause numbness in the arm or a pinched nerve in the neck. Patient then cut me off and stated well my neckis very tight and I know I have a pinched nerve . I explained that his neck tightness can certainlybe caused by a spasms from strained muscles around the joint as a result of his clenching and grinding and that we do have ways we can help with getting those muscles to relax with bite splint therapy and muscle relaxants and NSAID's. Patient stated he uses that and noticed when he does take Flexeril it helps. Reviewed how patient is using the medications and he stated he is taking the Flexeril at nighttime mostly and at most morning and night, and that he uses the Ibuprofen 2x a day only. Advised him that the since he noted improvement with Flexeril this is a great sign and we can actually switch to Robaxin 3x a day, which is stronger and not sedating and I suspect will give him more relief. Also advised that the Ibuprofen should be taken 4x/day. New prescriptions sent to pharmacy. Advised patient to stop taking Flexeril once he starts Robaxin. Patient also stated I know my TMJ pain is coming from missing teeth and I want implants . 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 Danielson to be evaluated and have a bite splint made. He voiced understanding. Cherise Ramirez DMD, MD [id number] Miscellaneous Notes* Telephone Encounter - Cherise Ramirez DMD, MD - 06/05/2022 11:10 AM EDT Returned patients call and inquired about his symptoms. He states he sees a surgeon for carpal tunnel and that the surgeon cant due surgery for him and he knows that his TMJ is pinching a nerve in his neck and that's causing his symptoms. Attempted to explain to patient that the TMJ cannot cause numbness in the arm or a pinched nerve in the neck. Patient then cut me off and stated well my neckis very tight and I know I have a pinched nerve . I explained that his neck tightness can certainlybe caused by a spasms from strained muscles around the joint as a result of his clenching and grinding and that we do have ways we can help with getting those muscles to relax with bite splint therapy and muscle relaxants and NSAID's. Patient stated he uses that and noticed when he does take Flexeril it helps. Reviewed how patient is using the medications and he stated he is taking the Flexeril at nighttime mostly and at most morning and night, and that he uses the Ibuprofen 2x a day only. Advised him that the since he noted improvement with Flexeril this is a great sign and we can actually switch to Robaxin 3x a day, which is stronger and not sedating and I suspect will give him more relief. Also advised that the Ibuprofen should be taken 4x/day. New prescriptions sent to pharmacy. Advised patient to stop taking Flexeril once he starts Robaxin. Patient also stated I know my TMJ pain is coming from missing teeth and I want implants . 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 Danielson to be evaluated and have a bite splint made. He voiced understanding. Cherise Ramirez DMD, MD * Telephone Encounter - Shaina Heath - 06/05/2022 10:54 AM EDT Patient was recently evaluated by Dr. Ramirez for TMJ. Asked to make 6 week FU appointment however, he is experiencing an intense amount of pain. Requesting a sooner appointment but I do not show availability. States he was in the [place] ER yesterday and told to immediately FU with his oral surgery provider. Please advise. [phone] documented in this [id number] Telephone encounter Note* Telephone Encounter - Shaina Heath - 06/05/2022 10:54 AM EDT Patient was recently evaluated by Dr. Ramirez for TMJ. Asked to make 6 week FU appointment however, he is experiencing an intense amount of pain. Requesting a sooner appointment but I do not show availability. States he was in the [place] ER yesterday and told to immediately FU with his oral surgery provider. Please advise. [phone] [id number] History of Present illness Narrative* Carin Cruz - 05/22/2022 1:40 PM EST Images from the original note were not included. * Sam Enamorado DMD - 05/22/2022 1:29 PM EST [facility] PATIENT VISIT CHIEF COMPLAINT: TMJ pain HISTORY OF PRESENT ILLNESS: 21 year old male with no significant PMH presents to [facility] as a referral from an outside provider for the evaluation of TMJ pain. Pt states that he has been chewing only on his right side for the past 4 years because of pain and that his right side feels tighter than the left. Pt reports recently going to the ED because he can't chew and was discharge with gabapentin which has been helping him with the pain. Pt states the pain will radiate through his ear and gives him a headache. 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 PAST MEDICAL HISTORY: 21 yrs old White male No past medical history on file. There is no problem list on file for this patient. MEDICATIONS: Current Outpatient Medications Medication Sig Dispense Refill gabapentin (NEURONTIN) 300 MG capsule Take 300 mg by mouth 3 times daily. No current facility-administered medications for this visit. ALLERGIES: Patient has no known allergies. SURGICAL HX: No past surgical history on file. SOCIAL HX: Marijuana - daily CLINICAL EXAMINATION Extraoral examination: No significant findings No s/s of infection, redness or tenderness to palpation No facial asymmetry or swelling No appreciable LAD No popping/clicking/crepitus of TMJ b/l Slight tenderness of right masseter asymptomatic function Range of motion WNL CN V and VII intact BERT 40 mm No pain to TMJs when loading the joints Intraoral examination: No s/s of infection or tenderness to palpation Moist, pink mucosa Oropharynx clear No pathological soft lesions appreciated Oral cancer screen negative Occlusion stable Oral hygiene fair RADIOGRAPHIC INTERPRETATION: [employer] Film taken on 05/22/2022, and Retained in our clinic files Missing #14,17,19,30,32 Condyles minimally anterior d/t pt opening mouth for HENDERSON - still normal No bony pathology ntoed DIAGNOSIS: Myofascial pain [[id number]] TREATMENT: Exam and [employer] evaluated PLAN: 21 yom with no significant PMH presents with myofascial pain of MoM. Pt is known to clench and could benefit from an occlusal guard chief. Pt referred to Dr. Danielson for evaluation of TMD and possible fabrication of occlusal guard chief. Pt to follow conservative therapy until he can be evaluated andtreated by Dr. Danielson. Conservative Myofascial Therapy - Flexeril 10 mg at bedtime PRN - ibuprofen 600 mg Q6H - Warm compresses to affected area - Soft food diet - Wear occlusal guard chief splint Sam Enamorado DMD documented in this [id number] Instructions* Patient Instructions* Pawan Parker DMD - 05/22/2022 1:40 PM EST Conservative TMD Therapy - Flexeril 10 mg at bedtime PRN - ibuprofen 600 mg Q6H - Warm compresses to affected area - Soft food diet - Wear occlusal guard chief splint documented in this [id number] Evaluation + Plan note Diagnostic Tests Pending * Rheumatoid Factor Quantitative 04/19/22 * YESENIA w/Reflex if POS [facility] Myofascial pain- Primary Mylagia and myositis, unspecified [facility] Diagnosis Myofascial pain- Primary Mylagia and myositis, unspecified [facility]* Diagnosis Myalgia of mastication muscle- Primary Myalgia of muscle of neck Arthralgia of right temporomandibular joint [facility] Diagnosis Myofascial pain- Primary Mylagia and myositis, unspecified [facility]* Diagnosis Onset Date Resolution Status Depression acute [facility] Work Phone: Evaluation note* Diagnosis Onset Date Resolution Status Depression acute Suicidal ideation acute Depression acute Tooth ache [facility] Work Phone: Evaluation note* Diagnosis Poor oral hygiene- Primary Unspecified disorder of the teeth and supporting structures [facility] N[facility] No data available for this section [facility] No data available for this section [facility] Additional Instructions Regular Diet No Activity [facility] Work Phone: Progress note No data available for this section [facility] Summary Purpose Family History No Family History Records Found Relationship Condition Age at Onset Recorded Date/T melissa father Malignant neoplasm of lung Unknown Not Specified Drug abuse Unknown Advance Directives No Advanced Directives Records Found Advance Directive Response Recorded Date/ Time Advance Directives No April 2:10pm Advance Directive Response Recorded Date/ Time Advance Directives No April 1:10pm Reason for Referral Specialty Diagnoses / Procedures Referred By Clint franks Referred To Contact Physical Therapy Diagnoses Myalgia of mastication muscle Myalgia of muscle of neck Arthralgia of right temporomandibular joint Ruel Cruz DMD [address] [place] [id number] Physical Therapy [address] [place] [address] Referral ID Status Reason Start Date Expiration Date Visits Requested Visits Authorized [id number] [facility]ending [facility]14[facility]2022 06/15/2023 10 10 Scheduling Instructions SCHEDULING INSTRUCTIONS: Call [phone] to schedule your Physical Therapy appointment. We offer therapy services at many convenient locations. Please arrive 20 minutes prior to your appointment to register. It is important to bring your insurance cards and a personal identification card to your appointment. If you are unable to keep your appointment, cancel or reschedule by calling [phone] or via [employer]. Thank you! Question Answer Is this for a new patient or continuation of treatment? (New = hasn't been seen for referring dx/problem for outpatient therapy in the last 3 mo.) New Patient What is the main reason for visit? Non-Urgent/Chronic Is the reason for this visit Workers' Comp related? No What is the reason for visit? TMJ - myospasm R mastication and neck Specialty Diagnoses / Procedures Referred By Clint franks Referred To Contact Dentistry Diagnoses Myofascial pain Cherise Ramirez DMD, MD [address] [place] [address] [facility] [address] [place] [address] Referral ID Status Reason Start Date Expiration Date Visits Requested Visits Authorized [id number] Pending Review [facility] 05/22/2022 05/23/2023 3 3 Question Answer Referral for: TMJ Dentistry Required for: Care transfer Diagnosis: TMD, bruxism Chief Complaint and Reason for Visit Chief Complaint Mood disorder Reason for Visit Depression Chief Complaint sucidal thoughts BH Major Depression Reason for Visit Depression Suicidal ideation Depression Tooth ache Chief Complaint MDD Reason for Visit Depression Additional Source Comments Patient Care team informatio n (unrecognized section and content) Photo Lab Technician Relationship Specialty Start Date End Date Erum Laboy DDS [address] [place] [address] [phone] Fellow Dentistry 06/16/22 Cherise Ramirez DMD, MD [address] [place] [address] [phone] Physician Oral & Maxillofacial Surgery 06/16/22 Photo Lab Technician Relationship Specialty Start Date End Date Erum Laboy DDS [address] [place] [address] [phone] Fellow Dentistry 06/16/22 Cherise Ramirez DMD, MD [address] [place] [address] [phone] Physician Oral & Maxillofacial Surgery 06/16/22 Team Status: Active Member Role Status Dates Darin Montoya [facility] Primary Care Provider Active Team Status: Inactive Member Role Status Dates Darin Montoya [facility] Primary Care Provider Active Tana Ca MD Admit Provider, Attending Pr ovider Active Photo Lab Technician Relationship Specialty Start Date End Date Erum Laboy DDS [address] [place] [address] [phone] Fellow Dentistry 06/16/22 Cherise Ramirez DMD, MD [address] [place] [address] [phone] Physician Oral & Maxillofacial Surgery 06/16/22 Photo Lab Technician Relationship Specialty Start Date End Date Erum Laboy DDS [address] [place] [address] [phone] Fellow Dentistry 06/16/22 Cherise Ramirez DMD, MD [address] [place] [address] [phone] Physician Oral & Maxillofacial Surgery 06/16/22 Photo Lab Technician Relationship Specialty Start Date End Date Erum Laboy DDS [address] [place] [address] [phone] Fellow Dentistry 06/16/22 Cherise Ramirez DMD, MD [address] [place] [address] [phone] Physician Oral & Maxillofacial Surgery 06/16/22 Photo Lab Technician Relationship Specialty Start Date End Date Erum Laboy DDS [address] [place] [address] [phone] Fellow Dentistry 06/16/22 Cherise Ramirez DMD, MD [address] [place] [address] [phone] Physician Oral & Maxillofacial Surgery 06/16/22 Photo Lab Technician Relationship Specialty Start Date End Date Erum Laboy DDS [address] [place] [address] [phone] Fellow Dentistry 06/16/22 Cherise Ramirez DMD, MD [address] [place] [address] [phone] Physician Oral & Maxillofacial Surgery 06/16/22 Team Status: Inactive Member Role Status Dates Darin Montoya [facility] Primary Care Provider Active Christiano Phelps DO Emergency Provider Active Shubham Ding MD Admit Provider, Attending Provider Active Team Status: Inactive Member Role Status Dates Darin Montoya [facility]- Primary Care Provider Active Shubham Ding MD Admit Provider, Attending Provider Active Team Status: Active Member Role Status Dates Darin Montoya , [facility] Primary Care Provider Active Tana Ca MD Attending Provider Active Photo Lab Technician Relationship Specialty Start Date End Date Erum Laboy DDS [address] [place] [address] [phone] Fellow Dentistry 06/16/22 Cherise Ramirez DMD, MD [address] [place] [address] [phone] Physician Oral & Maxillofacial Surgery 06/16/22 Photo Lab Technician Relationship Specialty Start Date End Date Erum Laboy DDS [address] [place] [address] [phone] Fellow Dentistry 06/16/22 Cherise Ramirez DMD, MD [address] [place] [address] Physician Oral & Maxillofacial Surgery 06/16/22 Photo Lab Technician Relationship Specialty Start Date End Date Erum Laboy DDS [address] [place] [address] [phone] Fellow Dentistry 06/16/22 Cherise Ramirez DMD, MD [address] [place] [address] [phone] Physician Oral & Maxillofacial Surgery 06/16/22 Alfonzo Mccord DDS [address] [place] [address] [phone] Fellow Dentistry 10/20/22 Photo Lab Technician Relationship Specialty Start Date End Date Erum Laboy DDS [address] [place] [address] [phone] Fellow Dentistry 06/16/22 Cherise Ramirez DMD, MD [address] [place] [address] [phone] Physician Oral & Maxillofacial Surgery 06/16/22 Alfonzo Mccord DDS [address] [place] [address] [phone] Fellow Dentistry 10/20/22 Photo Lab Technician Relationship Specialty Start Date End Date Erum Laboy [address] [phone] Fellow Dentistry 06/16/22 Cherise Ramirez DMD, MD [address] [place] [address] [phone] Physician Oral & Maxillofacial Surgery 06/16/22 Alfonzo Mccord DDS [address] [place] [address] [phone] Fellow Dentistry 10/20/22 Photo Lab Technician Relationship Specialty Start Date End Date RodrickErum hernadez [address] [phone] Fellow Dentistry 06/16/22 Cherise Ramirez DMD, MD [address] [place] [address] [phone] Physician Oral & Maxillofacial Surgery 06/16/22 Alfonzo Mccord DDS [address] [place] [address] [phone] Fellow Dentistry 10/20/22 (unrecognized sect ion and content) No Status Records FoundNo Status Records FoundNo Status Records FoundNo Status Records Found INFORMATION SOURCE (unrecogn ized section and content) DATE CREATED AUTHOR 04/23/2022 Mauricio Currie [facility] DATE CREATED AUTHOR AUTHOR'S ORGANIZ ATION 06/15/2022 [facility] DATE CREATED AUTHOR AUTHOR'S ORGANIZ ATION 07/21/2022 [place] DATE CREATED AUTHOR AUTHOR'S ORGANIZ ATION 04/08/2023 [facility] DATE CREATED AUTHOR AUTHOR'S ORGANIZ ATION 04/19/2023 [facility] Reason for Visit (unrecogniz ed section and content) Specialty Diagnoses / Procedures Referred By Clint franks Referred To Contact Oral Surgery Diagnoses Dental caries Vi Sameul, DDS [address] [place] [address] [facility] ORAL SURGERY [address] [place] [address] Referral ID Status Reason Start Date Expiration Date V isits Requested Visits Authorized [id number] Authorized 04/12/2022 04/12/2023 3 3 Reason Onset Date Comments Urgent TMJ Symptoms 06/05/2022 Reason Comments FOLLOW-UP ORAL SURGERY Reason Onset Date Comments Dental 12/28/2022 FOR RECORDS PERTAINING TO PATIENTS WHO ARE OR HAVE BEEN ENROLLED IN A CHEMICAL DEPENDENCY/SUBSTANCEABUSE PROGRAM, SOME INFORMATION MAY BE OMITTED. This clinical summary was aggregated from multiple sources. Caution should be exercised in using it in the provision of clinical care. This summary normalizes information from multiple sources, and as a consequence, information in this document may materially change the coding, format and clinical context of patient data. In addition, data may be omitted in some cases. CLINICAL DECISIONS SHOULD BE BASED ON THE PRIMARY CLINICAL RECORDS. [facility]. provides no warranty or guarantee of the accuracy or completeness of information in this document.
[2023-05-30 12:43] LABS: Thyroid Stimulating Hormone 0.578 uIU/mL (0.358-3.740)
[2023-05-31 04:07] LABS: Rheumatoid Factor (RF) <10.0 IU/mL (<14.0)
[2023-05-31 12:09] LABS: ANA Direct Negative (Negative)
[2023-05-31 13:14] LABS: Lyme Total Antibody CIA Negative (Negative)
== END 2023-05-30 11:18 | disposition home or self-care (01) ==
LOC: LAB 11:19
PROVIDERS: PCP Nurse Practitioner Primary Care; Visit Provider Psychiatry & Neurology Neurology
DX: M54.2 Cervicalgia (principal)
CPT/HCPCS: 36415; 82607; 82746; 84443; 86038; 86431; 86618

== ENCOUNTER 2023-10-30 12:54 | Outpatient (OUT) | payer OTHER, SELFPAY ==
--- NOTE | 2023-10-30 13:00 | XR_ITS ---
The [address] [address] Patient Name: BETTY SALGUERO MRN: [id number] date: 2000 Sex: M Assigned Patient Location: [facility] Current Patient Location: Accession/Order Number: [id number] Exam Date: 10/30/2023 13:15 Report Date: 11/02/2023 12:23 At the request of: REYNOLD GUZMAN Procedure: XR knee RT 2V PROCEDURE: XR knee RT 2V COMPARISON: None. HISTORY: Right Knee Pain M25.561 FINDINGS: BONES:No fracture, acute abnormality, or significant arthropathy. SOFT TISSUES:Negative. No visible soft tissue swelling. EFFUSION:None visible. OTHER: Negative. XR/XR knee RT 2V IMPRESSION: No acute radiographic abnormality Electronically authenticated by: DYLAN KEENAN Date: 11/02/2023 12:23
--- NOTE | 2023-10-30 13:00 | XR_ITS ---
[address] [address] Patient Name: BETTY SALGUERO MRN: [id number] date: 2000 Sex: M Assigned Patient Location: RAD Current Patient Location: [facility] Accession/Order Number: [id number] Exam Date: 10/30/2023 13:15 Report Date: 11/02/2023 12:23 At the request of: REYNOLD GUZMAN Procedure: XR shoulder RT min 2V PROCEDURE: XR shoulder RT min 2V COMPARISON: None. HISTORY: Right Shoulder Pain M25.511 FINDINGS: BONES:No fracture, acute abnormality, or significant arthropathy. SOFT TISSUES:Negative. No visible soft tissue swelling. EFFUSION:None visible. OTHER: Negative. XR/XR shoulder RT min 2V IMPRESSION: No acute radiographic abnormality Electronically authenticated by: DYLAN KEENAN Date: 11/02/2023 12:23
--- OUTSIDE RECORDS SUMMARY | 2023-10-30 13:23 | XMS_ITS | CCD ---
Author Organization [facility] Care Team Providers Care Prison Officer Name Role Phone Juan Madrigal Primary Care Physician Chu Muñoz Attending Unavailable Chu Muñoz Admitting Unavailable Unavailable Primary Care Provider Unavailabl e MIKE ., JOSÉ MANUEL JAIN Consulting Unavailabl e REINECK, DR VISHNU Cervantes Admitting Unavailabl e SHAMMO, DARIN Primary Care Unavailable REINECK, DR VISHNU Cervantes Attending Unavailabl e FABIOLA, PORTER Admitting Unavailable FABIOLA, PORTER Attending Unavailable FABIOLA, PORTER Consulting Unavailable KAITLIN, DR RIVERA Primary Care Unavailable NAGI ., ANJEL Consulting Unavailable SHAMMO, DARIN Primary Care Unavailable REINECK, DR VISHNU Cervantes Attending Unavailabl e REINECK, DR VISHNU Cervantes Consulting Unavailabl e REINECK, DR VISHNU Cervantes Admitting Unavailabl e HOUSE, DR RIVERA Primary Care Unavailable SHAMMO, DARIN Admitting Unavailable SHAMMO, DARIN Attending Unavailable SHAMMO, DARIN Consulting Unavailable SHAMMO, DARIN Primary Care Unavailable ZIEBER, DR SANKET Mcgovern Consulting Unavailable SHAMMO, DARIN Admitting Unavailable SHAMMO, DARIN Attending Unavailable SHAMMO, DARIN Consulting Unavailable Vasilyeva DDS, Erum Unavailable [phone] Ashley ALVAREZ MD, Cherise Unavailable Shammo, SPECIAL AGENT IN CHARGE-BC Darin T Primary Care Provider MD Tana Ca Admit Provider MD Tana Ca Attending Provider Shammo, SPECIAL AGENT IN CHARGE-BC Darin T Primary Care Provider DO Christiano Phelps Emergency Provider Timur, MD Shubham Admit Provider MD Timur Shubham Attending Provider MD Tana Ca Attending Provider [phone] Narda DDS, Erum Unavailable [phone] Suri DDS, Parveez Unavailable Shammo, SPECIAL AGENT IN CHARGE-BC Darin T Primary Care Provider MD Radha Dingyemi Admit Provider MD Mariana Dingmi Attending Provider [phone] Shubham Ding Admitting Unavailable Shammo, Darin T Primary Care Unavailable Brandon Ca Attending Unavailab le Shammo, Darin T Primary Care Unavailable Brandon Ca Attending Unavailab le Lanny, Brandon Admitting Unavailab le Shammo, Darin T Primary Care Unavailable Brandon Ca Attending Unavailab le Lanny, Brandon Admitting Unavailab le Timur, Shubham Attending Unavailable Timur, Shubham Admitting Unavailable Shammo, Darin T Primary Care Unavailable Shubham Ding Attending Unavailable Timur, Shubham Admitting Unavailable Shammo, Darin T Primary Care Unavailable Ashley ALVAREZ MD, Cherise Unavailable [phone] PROVIDER, UNKNOWN Attending Unavailable PROVIDER, UNKNOWN Admitting Unavailable PROVIDER, UNKNOWN Admitting Unavailable PROVIDER, UNKNOWN Attending Unavailable PROVIDER, UNKNOWN Attending Unavailable PROVIDER, UNKNOWN Admitting Unavailable ONUR KAPADIA Attending Unavaila ble PROVIDER, UNKNOWN Admitting Unavailable DELONTE ABEL Attending Unavailab le PROVIDER, UNKNOWN Admitting Unavailable PROVIDER, UNKNOWN Admitting Unavailable PROVIDER, UNKNOWN Attending Unavailable PROVIDER, UNKNOWN Admitting Unavailable PROVIDER, UNKNOWN Attending Unavailable PROVIDER, UNKNOWN Attending Unavailable PROVIDER, UNKNOWN Admitting Unavailable PROVIDER, UNKNOWN Attending Unavailable PROVIDER, UNKNOWN Admitting Unavailable PROVIDER, UNKNOWN Admitting Unavailable PROVIDER, UNKNOWN Attending Unavailable PROVIDER, UNKNOWN Admitting Unavailable PROVIDER, UNKNOWN Attending Unavailable PROVIDER, UNKNOWN Admitting Unavailable PROVIDER, UNKNOWN Attending Unavailable ELLEN JOSHUA Attending Unavailable SHAMMO, DARIN Referring Unavailable SHAMMO, DARIN Primary Care Unavailable VERHOFF, ELLEN N Referring Unavailable [facility], DARIN Primary Care Unavailable ELLEN JOSHUA Referring Unavailable [facility], GWINN Primary [facility] Unavailable Medications Current Medications Medication Drug Class(es) [...] Active diclofenac sodium 0.01 mg/mg topical gel (15 sources) Nonsteroidal Anti-inflammatory Drug Start: 06-14-2022 diclofenac (VOLTAREN) 1 % GEL topical gel Indications: Arthralgia of right temporomandibular joint Apply 2 g topically 2 times daily as needed. 50 g 0 06/14/2022 Active sodium fluoride 0.011 mg/mg toothpaste (12 sources) Start: 07-16-2022 Sodium Fluoride (PreviDent 5000 [...] sources) gamma-Aminobutyric Acid-ergic Agonist Start: 08-03-2022 End: 09-28-2022 take 10 mg by mouth twice daily [...] daily Duloxetine Discontinued 60 MG PO Daily August 04, 2022 11:00pm 2022 7:23am Start: [...] Nicotine (Polacrilex) Discontinued 2 MG BUCCAL Q2H 30 May 10, 2021 12:00am May 25, 2021 [...] Tramadol Discontinued 50 MG PO Q8H 5 2 May 10, 2021 12:00am May 25, 2021 7:45am traZODone hydrochloride 50 mg oral tablet (2 sources) Serotonin Reuptake Inhibitor Start: 2022 End: 03-09-2023 take 50 mg by mouth once daily at bedtime Trazodone Discontinued 50 MG PO Daily at bedtime 15 October 02, 2022 11:00pm March 09, 2023 9:30am Problems Active Problems Problem Classification Problem Date Documented Da te Episodic/Chronic Abdominal pain (3 sources) Indigestion; Translations: [Epigastric pain] 02-16-2022 Episodic Mood disorders (8 sources) Major depressive [...] Translations: [POLYNEUROPATHY UNSPECIFIED] Onset: 05-28-2022 Chronic Other nervous system disorders (1 source) Anesthesia of skin; Translations: [Anesthesia of skin] Onset: 07-03-2023 Episodic Other screening for suspected conditions (not mental [...] Spondylosis; intervertebral disc disorders; other back problems (8 sources) Radiculopathy, cervical region; Translations: [Cervicalgia] Onset: 06-04-2022 Episodic Substance-related disorders (1 source) [...] Date Episodic/Chronic Disorders of teeth and jaw (10 sources) Pain of right temporomandibular joint; Translations: [Arthralgia of right temporomandibular joint] Onset: 06-04-2022 Episodic Other nutritional; endocrine; and metabolic disorders (4 sources) Anorexia; Translations: [ANOREXIA] Onset: 01-28-2022 Episodic Residual codes; unclassified (1 source) Other specified personal risk factors, not elsewhere classified; Translations: [Other specified personal risk factors, not elsewhere classified] Onset: 10-29-2022 Episodic Suicide and intentional self-inflicted injury (8 sources) Suicidal ideations; Translations: [Suicidal thoughts] Onset: 06-12-2022 Episodic Results Test Name Value Interpretation Reference Range Facility Progress Noteson 07-24-2023 Public Health Inspector Authentication Interface Message Text ----- Monday, July 24, 2023 at 4:26:32 PM ----- ----- Provider: [id number] Resident Michael -- Clinic: [place] ----- COMPOSITE CHURCH Patient is scheduled for Rastafari on tooth #10-DL and 11-MDL. Reviewed Medical History. Pt exhibited the following conditions: No significant medical history Patient is ready for treatment. Topical Benzocaine gel applied at the injection site for 2 minutes. Administered 1 carpules of Lidocaine, 2% with Epinephrine 1:100,000,. Isolation achieved. Decay/existing scientology removed, cavity prepared. Selectively etched enamel with 37% phosphoric acid, rinsed, and blot dried. OptiBond delaney applied and light-cured. Condensed packable composite shade a3 in light cured increments using Mylar strip and wedge. Finished with finishing burs, checked occlusion, verified proximal contacts and scientology was polished. Rinsed and suctioned intraorally, advised patient to not eat until local anesthesia wears off. POST OPERATIVE Periapical (single) RADIOGRAPH TAKEN. NOTE: In the post op x ray I saw that mesial scientology on # 10 was fractured. It has to be replace in his next appointment Next Visit: Restorative ----- Signed on July at 8:19:57 AM ----- ----- Provider: [id number] Tessa Troncoso DDS -- Clinic: [place] ----- Normal [employer] [facility] XR SPINE CERVICAL 4 OR 5 VWS on 07-05-2023 XR SPINE CERVICAL 4 OR 5 VWS XR SPINE CERVICAL 4 OR 5 VWS EXAM: XR SPINE CERVICAL 4 OR 5 VWS INDICATION: Pain and radiculopathy COMPARISON: None TECHNIQUE: 5 views of the cervical spine were obtained FINDINGS: Vertebral body heights, alignment, and densities are normal. No prevertebral soft tissue thickening. No degenerative changes. Base of the dens and lateral masses are appropriately aligned. No foraminal narrowing. No acute fracture. IMPRESSION: Normal cervical spine radiographs Finalized by Chu Adkins on 07/05/2023 4:09 PM Normal [facility] Progress Noteson 05-31-2023 Public Health Inspector Authentication Interface Message Text [facility], pt is ready for tx. Pt is scheduled for Restorations on teeth #___surface___ ___carp of 2%lido, 1:100k epi was given. Decay removed, cavity prepared, bonded with opti-delaney, filled with composite using matrix band, retainer and wedge, then checked for occlusion/using articulating paper And for interproximal contact and overhang/using a floss. Rinsed and suctioned intraorally, advised pt to not eat until local anesthesia wears off. NV: RESTOTooth: 6 Surface: DL Normal [employer] [facility] [facility] Public Health Inspector Authentication Interface Message Text ----- Wednesday, May 31, 2023 at 1:45:00 PM ----- ----- Provider: John Nicholas Resident -- Clinic: [place] ----- COMPOSITE CHURCH Patient is scheduled for Rastafari on tooth #6 surface DL. Reviewed Medical History. Pt exhibited the following conditions: No significant medical history Patient is ready for treatment. Topical Benzocaine gel applied at the injection site for 2 minutes. Administered 1 carpules of Lidocaine, 2% with Epinephrine 1:100,000,. Decay/existing scientology removed, cavity prepared. Selectively etched enamel with 37% phosphoric acid, rinsed, and blot dried. Xeno IV delaney applied and light-cured. Condensed packable composite shade A2 in light cured increments using Toffelmaire matrix band retainer and wedge. Finished with finishing burs, checked occlusion, verified proximal contacts and scientology was polished. Rinsed and suctioned intraorally, advised patient to not eat until local anesthesia wears off. POST OPERATIVE Periapical (single) RADIOGRAPH TAKEN. Next Visit: Restorative ----- Signed on Friday, June 02, 2023 at 9:01:27 AM ----- ----- Provider: [id number] - Ruel Cruz DMD -- Clinic: [place] ----- Normal [employer] [facility] Progress Noteson 03-25-2023 Public Health Inspector Authentication Interface Message Text ----- Saturday, March 25, 2023 at 8:30:40 AM ----- ----- Provider: [id number] - Alfonzo Mccord, Candy -- Clinic: [place] ----- Patient messaged (EPIC) me at 8:20 am today to cancel his [...] muscle. He also inquired last month on One[employer] for a provider closer to him for [...] his appointment. Patient messages very frequently on EPIC, and multiple times when he does not get a response KT. His messages are not of urgent nature or medication refills. Responded thank you for taking 2 weeks to get back to me, appreciate it when I responded after my vacation to his repeated messages about what our TPI injections consist of - local anesthetic or steroid. Normal [employer] [facility] [employer] [facility] Cholesterol [Mass/volume] in Serum or PlasmaOrdered By: Shubham Ding on 03-10-2023 Cholesterol [Mass/Vol] 117 mg/dL 140-200 [facility] Comment on above: Chol less than 200 m g/dl low riskChol 201-239 mg/dl borderline riskChol 240 mg/dl and greater high risk Cholesterol in LDL Calc [Mas s/Vol]Ordered By: Shubham Ding on 03-10-2023 Cholesterol in LDL [Mass/Vol] 64 mg/dL 0-100 [facility] Comment on above: LDL ATP III CLASSIFI CATIONLDL less than 100 mg/dL OptimalLDL 100-129 mg/dL Near or above optimalLDL 130-159 mg/dL Borderline highLDL 160-189 mg/dL HighLDL greater than 189 mg/dL Very high Cholesterol in VLDL Calc [Ma ss/Vol]Ordered By: Shubhma Ding on 03-10-2023 Cholesterol in VLDL [Mass/Vol] 8 mg/dL [facility] Lipid Panelon 03-10-2023 Cholesterol [Mass/Vol] 117 mg/dL Low 140-200 [facility] Comment on above: Result Comment: Chol less than 200 mg/dl low risk Chol 201-239 mg/dl borderline risk Chol 240 mg/dl and greater high risk Performed By: #### C MP, CBC, ETOH #### [facility] [address] [place] [address] [facility] Cholesterol in HDL [Mass/Vol] 45 mg/dL Normal 23-92 [facility] Comment on above: Result Comment: HDL CHOL ATP-III CLASSIFICATION Cardiovascular Risk HDL > or equal to 60 mg/dL LOW HDL < 40 mg/dL HIGH Performed By: #### C MP, CBC, ETOH #### [facility] [address] [place] [address] [place] Cholesterol.total/Abi sterol in HDL [Mass ratio] 2.6 {ratio} Normal <5.0 [facility] Comment on above: Performed By: #### C MP, CBC, ETOH #### [facility] [address] [place] [address] [place] LDL Cholesterol,Calculated 64 mg/dL Normal 0-100 [facility] Comment on above: Result Comment: LDL ATP III CLASSIFICATION LDL less than 100 mg/dL Optimal LDL 100-129 mg/dL Near or above optimal LDL 130-159 mg/dL Borderline high LDL 160-189 mg/dL High LDL greater than 189 mg/dL Very high Performed By: #### C MP, CBC, ETOH #### [facility] [address] [place] [address] [place] Triglyceride w/Reflex 42 mg/dL Normal 0-149 [facility] Comment on above: Result Comment: TRIG ATP III CLASSIFICATION TRIG less than 150 mg/dL Normal TRIG 150-199 mg/dL Borderline high TRIG 200-500 mg/dL High TRIG greater than 500 mg/dL Very high Standard traceable to the Center for Disease Conrtrol and Prevention (CDC) test method. Performed By: #### C MP, CBC, ETOH #### [facility] [address] VLDL CHOLESTEROL 8 mg/dL Normal [facility] Comment on above: Performed By: #### C MP, CBC, ETOH #### [facility] [address] Serum or plasma high density lipoprotein (HDL) cholesterol measurementOrdered By: Shubham Ding on 03-10-2023 Cholesterol in HDL [Mass/Vol] 45 mg/dL [facility] Comment on above: HDL CHOL ATP-III CLA SSIFICATION Cardiovascular RiskHDL > or equal to 60 mg/dL LOWHDL < 40 mg/dL HIGH Serum or plasma total choles terol/high density lipoprotein (HDL) cholesterol mass ratOrdered By: Shubham Ding on 03-10-2023 Cholesterol.total/Abi sterol in HDL [Mass ratio] 2.6 {ratio} <5.0 [facility] Thyroid Stim Hormone w/Rflxo n 03-10-2023 Thyroid Stim Hormone w/Rflx 0.83 u[iU]/mL Normal 0.45-5.33 [facility] Comment on above: Performed By: #### C MP, CBC, ETOH #### [facility] [address] Thyrotropin [Units/volume] i n Serum or PlasmaOrdered By: Shubham Ding on 03-10-2023 TSH Qn 0.83 m[IU]/L 0.45-5.33 [facility] Triglyceride [Mass/volume] i n Serum or PlasmaOrdered By: Shubham Ding on 03-10-2023 Triglyceride [Mass/Vol] 42 mg/dL 0-149 [facility] Comment on above: TRIG ATP III CLASSIF ICATIONTRIG less than 150 mg/dL NormalTRIG 150-199 mg/dL Borderline highTRIG 200-500 mg/dL High TRIG greater than 500 mg/dL Very highStandard traceable to the Center for Disease Conrtrol and Prevention (CDC) test method. Vitamin D 25 Hydroxy Totalon 03-10-2023 Vitamin D 25 Hydroxy Total 44.6 ng/mL Normal 30-100 [facility] Comment on above: Result Comment: GREY MIN D STATUS 25([place])VITAMIN D RANGE (ng/mL) Deficient <20 Insufficient 20 to <30 Sufficient 30 to 100 Reference: Al Napier Bischoff-Ferrari HA et al. Evaluation,treatment, and prevention of vitamin D deficiency; an Endocrine Society clinical practice guideline. JCEM. 2010; 96(7):1911-30. PERFORMED BY: [place] [address] PATHOLOGIST JIG FITTER HANNY WEAVER M.D. Performed By: #### C MP, CBC, ETOH #### [address] Vitamin D+Metabolites [Mass/ volume] in Serum or PlasmaOrdered By: Shubham Ding on 03-10-2023 Vitamin D+Metabolites [Mass/Vol] 44.6 ng/mL 30-100 [facility] Comment on above: VITAMIN D STATUS 25( [place])VITAMIN D RANGE (ng/mL) Deficient <20 Insufficient 20 to <30Sufficient 30 to 100Reference: Al Napier Bischoff-Ferrari HA, et al. Evaluation,treatment, and prevention of vitamin D deficiency; an Endocrine Society clinical practice guideline. JCEM. 2010; 96(7):1911-30. ECG 12 lead ECGon 03-09-2023 ECG 12 lead ECG [facility] [place] [address] [place] [address] Electrocardiograph Report Signed Patient: Betty Rosenberg MR#: [id number] 140 : 2000 Acct:[id number] Age/Sex: 22 / M ADM Date: 03/09/23 Loc: Room: [address] [place] [address] Type: ADM IN Attending Dr: Shubham Ding [...] No significant change was found Confirmed by HAJA ROY MD, FACC ([id number]) on 03/10/2023 11:46:30 AM Referred By: Electronically Signed By:HAJA ROY MD, FACC Transcribed By: MUS Signed By Aiden Roy MD 03/10/23 1146 Normal [facility] Progress Noteson 02-22-2023 Public Health Inspector Authentication Interface Message Text ----- Wednesday, February 22, 2023 at 11:57:25 AM ----- ----- Provider: [id number] Resident Lisa -- Clinic: [place] ----- COMPOSITE CHURCH Patient is scheduled for Rastafari on tooth #20 MOD and 21 [id number] . Reviewed Medical History. Pt exhibited the following conditions: No significant medical history Patient is ready for treatment. Topical Benzocaine gel applied at the injection site for 2 minutes. Administered 1 carpules of Lidocaine, 2% with Epinephrine 1:100,000,. Isolation achieved. Decay/existing scientology removed, cavity prepared. Selectively etched enamel with 37% phosphoric acid, rinsed, and blot dried. OptiBond delaney applied and light-cured. Condensed packable composite shade a3 in light cured increments using Toffelmaire matrix band retainer and wedge. Finished with finishing burs, checked occlusion, verified proximal contacts and scientology was polished. Rinsed and suctioned intraorally, advised patient to not eat until local anesthesia wears off. POST OPERATIVE Periapical (single) RADIOGRAPH TAKEN. NOTE: Next Visit: Restorative ----- Signed on Saturday, February 25, 2023 at 5:04:28 AM ----- ----- Provider: [id number] Tessa Cruz DMD -- Clinic: [place] ----- Normal [facility] Progress Noteson 02-06-2023 Public Health Inspector Authentication Interface Message Text ----- Monday, February 06, 2023 at 2:01:57 PM ----- ----- Provider: [id number] - Onur Davila, -- Clinic: [place] ----- COMPOSITE CHURCH Patient is scheduled for Rastafari on tooth #4 and 5 surface B5. Reviewed Medical History. Pt exhibited the following conditions: No significant medical history Patient is ready for treatment. Topical Benzocaine gel applied at the injection site for 2 minutes. Administered 1 carpules of Articaine, 4% with Epinephrine 1:100,000,. Isolation achieved. Decay/existing scientology removed, cavity prepared. Selectively etched enamel with 37% phosphoric acid, rinsed, and blot dried. OptiBond delaney applied and light-cured. Condensed packable composite shade a2 in light cured increments using Mylar strip and wedge. Finished with finishing burs, checked occlusion, verified proximal contacts and scientology was polished. Rinsed and suctioned intraorally, advised patient to not eat until local anesthesia wears off. POST OPERATIVE RADIOGRAPH TAKEN. Next Visit: Restorative ----- Signed on Monday, February 06, 2023 at 2:08:28 PM ----- ----- Provider: [id number] - Christian Troncoso DDS -- Clinic: [place] ----- Normal [facility] Progress Noteson 01-21-2023 Public Health Inspector Authentication Interface Message Text ----- Saturday, January 21, 2023 at 10:37:19 AM ----- ----- Provider: [id number] - Candy Womack -- Clinic: [place] ----- Patient returned for trigger point injections cycle 1 # 4 Patient missed last appointment for TPI and scientology with adjustment of espana. Referring physician: Cherise [...] 2023 at 6:19:19 AM ----- ----- Provider: [id number] Cruz DMD -- Clinic: [place] ----- Normal [facility] Telephone Encounteron 2022 Public Health Inspector Authentication Interface Message Text Situation: UPDATE Background: Pt would like Provider Suri to msg him on [employer]. Pt states he is unable to msg provider because their msgs have . Pt would like to stay in contact with provider via [employer] in order to schedule his trigger point appts. Pt does not want to call in to be scheduled. Pt last seen 11/16/22 w [facility] Assessment: n/a Recommendation: JUSTINI Thank you :) Msg sent to Suri @ [facility] on 12/28/22 Normal [facility] Progress Noteson 11-16-2022 Public Health Inspector Authentication Interface Message Text ----- Wednesday, November 16, 2022 at 11:09:37 AM ----- ----- Provider: [id number] Tessa Mccord, Fellow -- Clinic: [place] ----- Patient returned for trigger point injections [...] 2022 at 9:53:55 PM ----- ----- Provider: [id number] Tessa Cruz DMD -- Clinic: [place] ----- Normal [employer] [facility] Progress Noteson 10-29-2022 Public Health Inspector Authentication Interface Message Text ----- Saturday, October 29, 2022 at 1:01:28 PM ----- ----- Provider: [id number] - Alfonzo Mccord, Fellow -- Clinic: [place] ----- Patient returned for trigger point injections cycle 1 # 2 Referring physician: hCerise Ramirez MD, DMD Reiterated the importance of maintaining regular appointments for TPI, pursuing PT and regular care with [facility] for restorative work. -Patient wants to get TPI done every two weeks since that's what he says was 'promised' to him. -He had a lot of questions about the restorative work - advised to ask his restorative dentist at his appointments. -Mandibular unarmed security guard does not fit due to filling on #31. We will reline the intaglio surface of JOVI after fillings on LLQ are completed. -He [...] 2022 at 2:52:21 PM ----- ----- Provider: [id number] Cruz DMD -- Clinic: [place] ----- Normal [facility] Progress Noteson 10-24-2022 Public Health Inspector Authentication Interface Message Text Patient was given [...] back once I had officer Josef and accredited farm manager Cely in my office. Patient was [...] I got him back in on Saturday10/29/2022 @1pkerri Millan----- Monday, October 24, 2022 at 9:17:38 AM ----- ----- Provider: CRISELDA Drake, Dental Insurance Loss Adjuster -- Clinic: [place] ----- Normal [facility] Progress Noteson 10-11-2022 Public Health Inspector Authentication Interface Message Text ----- September at 2:40:08 PM ----- ----- Provider: [id number] Mendez, Resident -- Clinic: [place] ----- COMPOSITE CHURCH Patient is scheduled for Rastafari on tooth #31 surface MOLB. Reviewed Medical History. Pt exhibited the following conditions: nothing mentioned in EPIC Patient is ready for treatment. Topical Benzocaine gel applied at the injection site for 2 minutes. Administered 1 carpules of Lidocaine, 2% with Epinephrine 1:100,000,. Rubber dam isolation achieved. Decay/existing scientology removed, cavity prepared. [place] [employer] Selectively etched enamel with 37% phosphoric acid, rinsed, and blot dried. Xeno IV delaney applied and light-cured. Condensed packable composite shade A2 in light cured increments using Toffelmaire matrix band retainer and wedge. Finished with finishing burs, checked occlusion, verified proximal contacts and scientology was polished. Rinsed and suctioned intraorally, advised [...] September at 2:57:24 PM ----- ----- Provider: Michael Troncoso DDS -- Clinic: [place] ----- Normal [employer] [facility] Cholesterol [Mass/volume] in Serum or PlasmaOrdered By: Shubham Ding on 09-29-2022 Cholesterol [Mass/Vol] 147 mg/dL 140-200 [facility] Comment on above: Chol less than 200 m g/dl low riskChol 201-239 mg/dl borderline riskChol 240 mg/dl and greater high risk Cholesterol in LDL Calc [Mas s/Vol]Ordered By: Shubham Ding on 09-29-2022 Cholesterol in LDL [Mass/Vol] 86 mg/dL 0-100 [facility] Comment on above: LDL ATP III CLASSIFI CATIONLDL less than 100 mg/dL OptimalLDL 100-129 mg/dL Near or above optimalLDL 130-159 mg/dL Borderline highLDL 160-189 mg/dL HighLDL greater than 189 mg/dL Very high Cholesterol in VLDL Calc [Ma ss/Vol]Ordered By: Shubham Ding on 09-29-2022 Cholesterol in VLDL [Mass/Vol] 12 mg/dL [facility] ECG 12 lead ECGon 09-29-2022 ECG 12 lead ECG [facility] [address] [place] [id number] Electrocardiograph Report Signed Patient: Betty Rosenberg MR#: [id number] 140 : 2000 Acct:[id number] Age/Sex: 21 / M ADM Date: 09/28/22 Loc: Room: [address] [place] [address] Type: ADM IN Attending Dr: Shubham Ding [...] Princess Smalls MD 0 09/29/22 1027 Normal [facility] Lipid Panelon 09-29-2022 Cholesterol [Mass/Vol] 147 mg/dL Normal 140-200 [facility] Comment on above: Result Comment: Chol less than 200 mg/dl low risk Chol 201-239 mg/dl borderline risk Chol 240 mg/dl and greater high risk Performed By: #### C MP, CBC, ETOH #### [facility] [address] [place] [id number] [facility] Cholesterol in HDL [Mass/Vol] 49 mg/dL Normal 23-92 [facility] Comment on above: Result Comment: HDL CHOL ATP-III CLASSIFICATION Cardiovascular Risk HDL > or equal to 60 mg/dL LOW HDL < 40 mg/dL HIGH Performed By: #### C MP, CBC, ETOH #### [facility] [address] [place] [id number] [facility] Cholesterol.total/Abi sterol in HDL [Mass ratio] 3.0 {ratio} Normal <5.0 [facility] Comment on above: Performed By: #### C MP, CBC, ETOH #### [address] LDL Cholesterol,Calculated 86 mg/dL Normal 0-100 [facility] Comment on above: Result Comment: LDL ATP III CLASSIFICATION LDL less than 100 mg/dL Optimal LDL 100-129 mg/dL Near or above optimal LDL 130-159 mg/dL Borderline high LDL 160-189 mg/dL High LDL greater than 189 mg/dL Very high Performed By: #### C MP, CBC, ETOH #### [facility] [address] Triglyceride w/Reflex 62 mg/dL Normal 0-149 [facility] Comment on above: Result Comment: TRIG ATP III CLASSIFICATION TRIG less than 150 mg/dL Normal TRIG 150-199 mg/dL Borderline high TRIG 200-500 mg/dL High TRIG greater than 500 mg/dL Very high Standard traceable to the Center for Disease Conrtrol and Prevention (CDC) test method. Performed By: #### C MP, CBC, ETOH #### [address] VLDL CHOLESTEROL 12 mg/dL Normal [facility] Comment on above: Performed By: #### C MP, CBC, ETOH #### [address] Serum or plasma high density lipoprotein (HDL) cholesterol measurementOrdered By: Shubham Ding on 09-29-2022 Cholesterol in HDL [Mass/Vol] 49 mg/dL 23-92 [facility] Comment on above: HDL CHOL ATP-III CLA SSIFICATION Cardiovascular RiskHDL > or equal to 60 mg/dL LOWHDL < 40 mg/dL HIGH Serum or plasma total choles terol/high density lipoprotein (HDL) cholesterol mass ratOrdered By: Shubham Ding on 09-29-2022 Cholesterol.total/Abi sterol in HDL [Mass ratio] 3.0 {ratio} <5.0 [facility] Thyroid Stim Hormone w/Rflxo n 09-29-2022 Thyroid Stim Hormone w/Rflx 0.75 u[iU]/mL Normal 0.45-5.33 [facility] Comment on above: Performed By: #### C MP, CBC, ETOH #### [address] [place] [address] [place] Thyrotropin [Units/volume] i n Serum or PlasmaOrdered By: Shubham Ding on 09-29-2022 TSH Qn 0.75 m[IU]/L 0.45-5.33 [facility] Triglyceride [Mass/volume] i n Serum or PlasmaOrdered By: Shubham Ding on 09-29-2022 Triglyceride [Mass/Vol] 62 mg/dL 0-149 [facility] Comment on above: TRIG ATP III CLASSIF ICATIONTRIG less than 150 mg/dL NormalTRIG 150-199 mg/dL Borderline highTRIG 200-500 mg/dL High TRIG greater than 500 mg/dL Very highStandard traceable to the Center for Disease Conrtrol and Prevention (CDC) test method. Vitamin D 25 Hydroxy Totalon 09-29-2022 Vitamin D 25 Hydroxy Total 57.5 ng/mL Normal 30-100 [facility] Comment on above: Result Comment: GREY MIN D STATUS 25(OH)VITAMIN D RANGE (ng/mL) Deficient <20 Insufficient 20 to <30 Sufficient 30 to 100 Reference: Al Napier, Yvonne BUCHANAN, et al. Evaluation,treatment, and prevention of vitamin D deficiency; an Endocrine Society clinical practice guideline. JCEM. 2010; 96(7):1911-30. PERFORMED BY: [place] [address] PATHOLOGIST JIG FITTER HANNY WEAVER M.D. Performed By: #### C MP, CBC, ETOH #### [facility] [address] [place] [address] Vitamin D+Metabolites [Mass/ volume] in Serum or PlasmaOrdered By: Shubham Ding on 09-29-2022 Vitamin D+Metabolites [Mass/Vol] 57.5 ng/mL 30-100 [facility] Comment on above: VITAMIN D STATUS 25( [place])VITAMIN D RANGE (ng/mL) Deficient <20 Insufficient 20 to <30Sufficient 30 to 100Reference: Al Napier, Yvonne BUCHANAN, et al. Evaluation,treatment, and prevention of vitamin D deficiency; an Endocrine Society clinical practice guideline. JCEM. 2010; 96(7):1911-30. 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 Reviewed [...] 2022 at 8:48:46 AM ----- ----- Provider: [id number] - Ruel Cruz DMD -- Clinic: [place] ----- Normal [employer] Progress Noteson 09-21-2022 Public Health Inspector Authentication Interface Message Text ----- Wednesday, September 21, 2022 at 12:38:33 PM ----- ----- Provider: [id number] Tessa Laboy, Fellow -- Clinic: [place] ----- This note is to document inappopriate behavior. Patient relations notified. Patient repeatedly attempts to message provider on social media. When redirected to [employer], becomes combative and verbally abusive. Repeated efforts have been made to schedule for comprehensive dental and specialty orofacial pain treatment in a timely manner. Consider dismissing from practice. Normal [employer] Progress Noteson 09-05-2022 Public Health Inspector Authentication Interface Message Text ----- Monday, September 05, 2022 at 11:13:41 AM ----- ----- Provider: Resident Juan R -- Clinic: [place] ----- COMPOSITE CHURCH Patient is scheduled for Rastafari on tooth #13 surface MOD. Reviewed Medical History. Pt exhibited the following conditions: No significant medical history Patient is ready for treatment. Topical Benzocaine gel applied at the injection site for 2 minutes. Administered 1 carpules of Lidocaine, 2% with Epinephrine 1:100,000,. Decay/existing scientology removed, cavity prepared. Selectively etched enamel with 37% phosphoric acid, rinsed, and blot dried. OptiBond delaney applied and light-cured. Condensed packable composite shade A2 in light cured increments using Toffelmaire matrix band retainer and wedge. Finished with finishing burs, checked occlusion, verified proximal contacts and scientology w as polished. Rinsed and suctioned intraorally, [...] 2022 at 12:33:50 PM ----- ----- Provider: [id number] Martin Troncoso DDS -- Clinic: [place] ----- Normal [employer] Public Health Inspector Authentication Interface Message Text Normal [employer] Progress Noteson 08-23-2022 Public Health Inspector Authentication Interface Message Text ----- August at 1:08:31 PM ----- ----- Provider: Resident Juan R -- Clinic: [place] ----- COMPOSITE CHURCH Patient is scheduled for Rastafari on tooth #26- F, 27- DL, 28-MOD, 29- MODB and 31 surface OL. Reviewed Medical History. Pt exhibited the following conditions: Mental Disorders Patient is ready for treatment. Topical Benzocaine gel applied at the injection site for 2 minutes. Administered 1 carpules of Lidocaine, 2% with Epinephrine 1:100,000,. Decay/existing scientology removed, cavity prepared. Selectively etched enamel with 37% phosphoric acid, rinsed, and blot dried. OptiBond delaney applied and light-cured. Condensed packable composite shade A2 in light cured increments using Toffelmaire matrix band retainer and wedge. Finished with finishing burs, checked occlusion, verified proximal contacts and scientology was polished. Rinsed and suctioned intraorally, advised [...] ----- Provider: Michael Troncoso DDS -- Clinic: [place] ----- Normal [employer] Cholesterol [Mass/volume] in Serum or PlasmaOrdered By: Shubham Ding on 08-04-2022 Cholesterol [Mass/Vol] 133 mg/dL 140-200 [facility] Comment on above: Chol less than 200 m g/dl low riskChol 201-239 mg/dl borderline riskChol 240 mg/dl and greater high risk Cholesterol in LDL Calc [Mas s/Vol]Ordered By: Shubham Ding on 08-04-2022 Cholesterol in LDL [Mass/Vol] 69 mg/dL 0-100 [facility] Comment on above: LDL ATP III CLASSIFI CATIONLDL less than 100 mg/dL OptimalLDL 100-129 mg/dL Near or above optimalLDL 130-159 mg/dL Borderline highLDL 160-189 mg/dL HighLDL greater than 189 mg/dL Very high Cholesterol in VLDL Calc [Ma ss/Vol]Ordered By: Shubham Dign on 08-04-2022 Cholesterol in VLDL [Mass/Vol] 17 mg/dL [facility] Lipid Panelon 08-04-2022 Cholesterol [Mass/Vol] 133 mg/dL Low 140-200 [facility] Comment on above: Result Comment: Chol less than 200 mg/dl low risk Chol 201-239 mg/dl borderline risk Chol 240 mg/dl and greater high risk Performed By: #### V [id number], TSH3 wRFLX, LIPID #### [facility] [address] [place] [address] [place] Cholesterol in HDL [Mass/Vol] 47 mg/dL Normal 29-71 [facility] Comment on above: Result Comment: HDL CHOL ATP-III CLASSIFICATION Cardiovascular Risk HDL > or equal to 60 mg/dL LOW HDL < 40 mg/dL HIGH Performed By: #### V [id number], TSH3 wRFLX, LIPID #### [facility] [address] [place] [address] [place] Cholesterol.total/Abi sterol in HDL [Mass ratio] 2.8 {ratio} Normal <5.0 [facility] Comment on above: Performed By: #### V [id number], TSH3 wRFLX, LIPID #### [facility] [address] [place] [address] [place] LDL Cholesterol,Calculated 69 mg/dL Normal 0-100 [facility] Comment on above: Result Comment: LDL ATP III CLASSIFICATION LDL less than 100 mg/dL Optimal LDL 100-129 mg/dL Near or above optimal LDL 130-159 mg/dL Borderline high LDL 160-189 mg/dL High LDL greater than 189 mg/dL Very high Performed By: #### V [id number], TSH3 wRFLX, LIPID #### [facility] [address] Triglyceride w/Reflex 86 mg/dL Normal 0-149 [facility] Comment on above: Result Comment: TRIG ATP III CLASSIFICATION TRIG less than 150 mg/dL Normal TRIG 150-199 mg/dL Borderline high TRIG 200-500 mg/dL High TRIG greater than 500 mg/dL Very high Standard traceable to the Center for Disease Conrtrol and Prevention (CDC) test method. Performed By: #### V [id number], TSH3 wRFLX, LIPID #### [facility] [address] VLDL CHOLESTEROL 17 mg/dL Normal [facility] Comment on above: Performed By: #### V [id number], TSH3 wRFLX, LIPID #### [facility] [address] Serum or plasma high density lipoprotein (HDL) cholesterol measurementOrdered By: Shubham Ding on 08-04-2022 Cholesterol in HDL [Mass/Vol] 47 mg/dL 29-71 [facility] Comment on above: HDL CHOL ATP-III CLA SSIFICATION Cardiovascular RiskHDL > or equal to 60 mg/dL LOWHDL < 40 mg/dL HIGH Serum or plasma total choles terol/high density lipoprotein (HDL) cholesterol mass ratOrdered By: Shubham Ding on 08-04-2022 Cholesterol.total/Abi sterol in HDL [Mass ratio] 2.8 {ratio} <5.0 [facility] Thyroid Stim Hormone w/Rflxo n 08-04-2022 Thyroid Stim Hormone w/Rflx 0.91 u[iU]/mL Normal 0.45-5.33 [facility] Comment on above: Performed By: #### V [id number], TSH3 wRFLX, LIPID #### [facility] [address] Thyrotropin [Units/volume] i n Serum or PlasmaOrdered By: Shubham Ding on 08-04-2022 TSH Qn 0.91 m[IU]/L 0.45-5.33 [facility] Triglyceride [Mass/volume] i n Serum or PlasmaOrdered By: Shubham Timur on 08-04-2022 Triglyceride [Mass/Vol] 86 mg/dL 0-149 [facility] Comment on above: TRIG ATP III CLASSIF ICATIONTRIG less than 150 mg/dL NormalTRIG 150-199 mg/dL Borderline highTRIG 200-500 mg/dL High TRIG greater than 500 mg/dL Very highStandard traceable to the Center for Disease Conrtrol and Prevention (CDC) test method. Vitamin D 25 Hydroxy Totalon 08-04-2022 Vitamin D 25 Hydroxy Total 46.3 ng/mL Normal 30-100 [facility] Comment on above: Result Comment: GREY MIN D STATUS 25(OH)VITAMIN D RANGE (ng/mL) Deficient <20 Insufficient 20 to <30 Sufficient 30 to 100 Reference: Al Napier, Yvonne BUCHANAN, et al. Evaluation,treatment, and prevention of vitamin D deficiency; an Endocrine Society clinical practice guideline. JCEM. 2010; 96(7):1911-. PERFORMED BY: [place] [address] PATHOLOGIST JIG FITTER HANNY WEVAER M.D. Performed By: #### V [id number], TSH3 wRFLX, LIPID #### [address] Vitamin D+Metabolites [Mass/ volume] in Serum or PlasmaOrdered By: Shubham Ding on 08-04-2022 Vitamin D+Metabolites [Mass/Vol] 46.3 ng/mL 30-100 [facility] Comment on above: VITAMIN D STATUS 25( [place])VITAMIN D RANGE (ng/mL) Deficient <20 Insufficient 20 to <30Sufficient 30 to 100Reference: Al Napier, Yvonne BUCHANAN, et al. Evaluation,treatment, and prevention of vitamin D deficiency; an Endocrine Society clinical practice guideline. JCEM. 2010; 96(7):1911-30. Alanine aminotransferase [En zymatic activity/volume] in Serum or PlasmaOrdered By: Christiano Phelps on 08-03-2022 ALT [Catalytic activity/Vol] 26 U/L 7-52 [facility] Albumin [Mass/volume] in Ser um or Plasma by Bromocresol green (BCG) dye binding methoOrdered By: Christiano Phelps on 08-03-2022 Albumin BCG dye [Mass/Vol] 3.9 g/dL 3.5-5.7 [facility] Alkaline phosphatase [Enzyma tic activity/volume] in Serum or PlasmaOrdered By: Christiano Phelps on 08-03-2022 ALP [Catalytic activity/Vol] 64 U/L 34-104 [facility] Amphetamine Screen Ql (U)Ord ered By: Christiano Phelps on 08-03-2022 Amphetamines Ql (U) Negative Negative [facility] Aspartate aminotransferase [ Enzymatic activity/volume] in Serum or PlasmaOrdered By: Christiano Phelps on 08-03-2022 AST [Catalytic activity/Vol] 19 U/L 13-39 [facility] Barbiturates [Presence] in U rine by Screen methodOrdered By: Christiano Phelps on 08-03-2022 Barbiturates Screen Ql (U) Negative Negative [facility] Basophils Auto (Bld) [#/Vol] Ordered By: Christiano Phelps on 08-03-2022 Basophils (Bld) [#/Vol] 0.0 10*3/uL 0.0-0.2 [facility] Basophils/100 WBC Auto (Bld) Ordered By: Christiano Phelps on 08-03-2022 Basophils/100 WBC (Bld) 0.3 % . [facility] Benzodiazepines Screen Ql (U )Ordered By: Christiano Phelps on 08-03-2022 Benzodiazepines Ql (U) Negative Negative [facility] Benzoylecgonine [Presence] i n Urine by Screen methodOrdered By: Christiano Phelps on 08-03-2022 Benzoylecgonine Screen Ql (U) Negative Negative [facility] Bilirubin Test strip Ql (U)O rdered By: Christiano Phelps on 08-03-2022 Bilirubin Ql (U) Negative Negative [facility] Bilirubin.total [Mass/volume ] in Serum or PlasmaOrdered By: Christiano Phelps on 08-03-2022 Bilirubin [Mass/Vol] 0.4 mg/dL 0.3-1.0 [facility] Calcium [Mass/volume] in Ser um or PlasmaOrdered By: Christiano Phelps on 08-03-2022 Calcium [Mass/Vol] 8.9 mg/dL 8.6-10.3 [facility] Cannabinoids [Presence] in U rine by Screen methodOrdered By: Christiano Phelps on 08-03-2022 Cannabinoids Screen Ql (U) Positive Negative [facility] Comment on above: These are unconfirme d results and should not be used for legal purposes. Drug Cut-Off Concentration: AMPH 1000 ng/mL DEANGELO 200 ng/mL BEATRIZ 200 ng/mL COCM 300 ng/mL OP 300 ng/mL PCP 25 ng/mL THC 20 ng/mL Carbon dioxide, total [Moles /volume] in Serum or PlasmaOrdered By: Christiano Phelps on 08-03-2022 CO2 [Moles/Vol] 32.6 mmol/L 21.0-31.0 [facility] Chloride [Moles/volume] in S messi or PlasmaOrdered By: Christiano Phelps on 08-03-2022 Chloride [Moles/Vol] 104 mmol/L 98-107 [facility] Color Auto (U)Ordered By: Radames red Mattie on 08-03-2022 Color (U) Yellow Yellow [facility] Complete Blood Count Auto Di ffon 08-03-2022 Basophils (Bld) [#/Vol] 0.0 10*3/uL Normal 0.0-0.2 [facility] Comment on above: Result Comment: PERF ORMED BY: [place] [address] PATHOLOGIST JIG FITTER HANNY WEAVER M.D. Performed By: #### C MP, CBC, ETOH #### [facility] [address] [place] [address] [place] Basophils/100 WBC (Bld) 0.3 % Normal . [facility] Comment on above: Performed By: #### C MP, CBC, ETOH #### [facility] [address] [place] [address] [place] Eosinophils (Bld) [#/Vol] 0.1 10*3/uL Normal 0.0-0.45 [facility] Comment on above: Performed By: #### C MP, CBC, ETOH #### [address] Eosinophils/100 WBC (Bld) 1.7 % Normal . [facility] Comment on above: Performed By: #### C MP, CBC, ETOH #### [address] Erythrocyte distribution width (RBC) [Ratio] 13.5 % Normal 12.0-14.8 [facility] Comment on above: Performed By: #### C MP, CBC, ETOH #### [address] Hematocrit (Bld) [Volume fraction] 43.8 % Normal 38.8-50.0 [facility] Comment on above: Performed By: #### C MP, CBC, ETOH #### [address] Hemoglobin (Bld) [Mass/Vol] 14.6 g/dL Normal 13.0-17.0 [facility] Comment on above: Performed By: #### C MP, CBC, ETOH #### [address] Lymphocytes (Bld) [#/Vol] 1.2 10*3/uL Normal 1.00-4.8 [facility] Comment on above: Performed By: #### C MP, CBC, ETOH #### [address] Lymphocytes/100 WBC (Bld) 23.9 % Normal . [facility] Comment on above: Performed By: #### C MP, CBC, ETOH #### [address] MCH (RBC) [Entitic mass] 28.8 pg Normal 27.5-35.2 [facility] Comment on above: Performed By: #### C MP, CBC, ETOH #### [address] MCV (RBC) [Entitic vol] 86.2 fL Normal 83.5-101 [facility] Comment on above: Performed By: #### C MP, CBC, ETOH #### [address] Mean Corpuscular HGB Conc 33.5 g/dL Normal 32.5-35.6 [facility] Comment on above: Performed By: #### C MP, CBC, ETOH #### [place] [address] [place] Monocytes (Bld) [#/Vol] 0.4 10*3/uL Normal 0.0-0.8 [facility] Comment on above: Performed By: #### C MP, CBC, ETOH #### [address] Monocytes/100 WBC (Bld) 18.07 % Normal 0.00-20.00 [facility] Comment on above: Performed By: #### C MP, CBC, ETOH #### [address] Monocytes/100 WBC (Bld) 8.3 % Normal . [facility] Comment on above: Performed By: #### C MP, CBC, ETOH #### [address] Neutrophils (Bld) [#/Vol] 3.4 10*3/uL Normal 1.8-7.7 [facility] Comment on above: Performed By: #### C MP, CBC, ETOH #### [place] [address] [place] Neutrophils/100 WBC (Bld) 65.8 % Normal . [facility] Comment on above: Performed By: #### C MP, CBC, ETOH #### [place] [address] [place] NRBC% 0.2 /100{WBC} Normal 0-0.5 [facility] Comment on above: Performed By: #### C MP, CBC, ETOH #### [address] Platelet mean volume (Bld) [Entitic vol] 8.8 fL Normal 6.6-10.1 [facility] Comment on above: Performed By: #### C MP, CBC, ETOH #### [facility] [address] Platelets (Bld) [#/Vol] 201 10*3/uL Normal 150-450 [facility] Comment on above: Performed By: #### C MP, CBC, ETOH #### [address] RBC (Bld) [#/Vol] 5.08 10*6/uL Normal 3.90-5.60 [facility] Comment on above: Performed By: #### C MP, CBC, ETOH #### [address] WBC (Bld) [#/Vol] 5.2 10*3/uL Normal 4.1-10.5 [facility] Comment on above: Performed By: #### C MP, CBC, ETOH #### [address] Comprehensive Metabolic Pane karan 08-03-2022 Albumin [Mass/Vol] 3.9 g/dL Normal 3.5-5.7 [facility] Comment on above: Performed By: #### C MP, CBC, ETOH #### [address] Albumin/Globulin [Mass ratio] 1.4 {ratio} Normal [facility] Comment on above: Performed By: #### C MP, CBC, ETOH #### [address] ALP [Catalytic activity/Vol] 64 U/L Normal 34-104 [facility] Comment on above: Performed By: #### C MP, CBC, ETOH #### [address] ALT [Catalytic activity/Vol] 26 U/L Normal 7-52 [facility] Comment on above: Performed By: #### C MP, CBC, ETOH #### [facility] [address] [place] [address] [place] Anion gap [Moles/Vol] 6.4 mmol/L Normal 6.0-15.0 [facility] Comment on above: Performed By: #### C MP, CBC, ETOH #### [facility] [address] AST [Catalytic activity/Vol] 19 U/L Normal 13-39 [facility] Comment on above: Performed By: #### C MP, CBC, ETOH #### [facility] [address] [place] [address] [place] Bilirubin [Mass/Vol] 0.4 mg/dL Normal 0.3-1.0 [facility] Comment on above: Performed By: #### C MP, CBC, ETOH #### [facility] [address] Calcium [Mass/Vol] 8.9 mg/dL Normal 8.6-10.3 [facility] Comment on above: Performed By: #### C MP, CBC, ETOH #### [facility] [address] [place] [address] [place] Chloride [Moles/Vol] 104 mmol/L Normal 98-107 [facility] Comment on above: Performed By: #### C MP, CBC, ETOH #### [facility] [address] [place] [address] [place] CO2 [Moles/Vol] 32.6 mmol/L High 21.0-31.0 [facility] Comment on above: Performed By: #### C MP, CBC, ETOH #### [facility] [address] [place] [address] [place] Creatinine [Mass/Vol] 0.77 mg/dL Normal 0.70-1.30 [facility] Comment on above: Performed By: #### C MP, CBC, ETOH #### [facility] [address] [place] [address] [place] Creatinine Clr Calc Pharmacy 144.27 Normal [facility] Comment on above: Result Comment: PERF ORMED BY: [facility] [address] [place] [address] PATHOLOGIST JIG FITTER HANNY WEAVER M.D. Performed By: #### C MP, CBC, ETOH #### [facility] [address] [place] [address] [place] GFR/1.73 sq M.predicted MDRD (S/P/Bld) [Vol rate/Area] mL/min/{1.73_m2} Normal [facility] Comment on above: Performed By: #### C MP, CBC, ETOH #### [facility] [address] Globulin (S) [Mass/Vol] 2.7 g/dL Normal [facility] Comment on above: Performed By: #### C MP, CBC, ETOH #### [address] Glucose [Mass/Vol] 86 mg/dL Normal 70-100 [facility] Comment on above: Result Comment: [place] Glucose Reference Range is dependent on time and content of last meal. Glucose of more than 200 mg/dL in a nonstressed, ambulatory subject supports the diagnosis of Diabetes Mellitus. ADA recommended reference range Performed By: #### C MP, CBC, ETOH #### [address] Potassium [Moles/Vol] 4.0 mmol/L Normal 3.5-5.1 [facility] Comment on above: Performed By: #### C MP, CBC, ETOH #### [place] [address] [place] Protein [Mass/Vol] 6.6 g/dL Normal 6.4-8.9 [facility] Comment on above: Performed By: #### C MP, CBC, ETOH #### [facility] [address] [place] [address] [place] Sodium [Moles/Vol] 139 mmol/L Normal 136-145 [facility] Comment on above: Performed By: #### C MP, CBC, ETOH #### [facility] [address] [place] [address] [place] Urea nitrogen [Mass/Vol] 12 mg/dL Normal 7-25 [facility] Comment on above: Performed By: #### C MP, CBC, ETOH #### [facility] [address] [place] [address] Creatinine [Mass/volume] in Serum or PlasmaOrdered By: Christiano Phelps on 08-03-2022 Creatinine [Mass/Vol] 0.77 mg/dL 0.70-1.30 [facility] Drug Screen,Urineon 08-04-19 Amphetamine Screen,Urine Negative Normal Negative [facility] Comment on above: Performed By: #### U A, URDS #### [address] Barbiturate Screen,Urine Negative Normal Negative [facility] Comment on above: Performed By: #### U A, URDS #### [address] Benzodiazepines Screen,Urine Negative Normal [facility] [facility] Comment on above: Performed By: #### U A, URDS #### [address] Cannabinoid Screen,Urine Positive High Negative [facility] Comment on above: Result Comment: Thes e are unconfirmed results and should not be used for legal purposes. Drug Cut-Off Concentration: AMPH 1000 ng/mL DEANGELO 200 ng/mL BEATRIZ 200 ng/mL COCM 300 ng/mL OP 300 ng/mL PCP 25 ng/mL THC 20 ng/mL PERFORMED BY: [place] [address] PATHOLOGIST JIG FITTER HANNY WEAVER M.D. Performed By: #### U A, URDS #### [place] [address] [place] Cocaine Screen,Urine Negative Normal Negative [facility] Comment on above: Performed By: #### U A, URDS #### [place] [address] [place] Opiate Screen,Urine Negative Normal Negative [facility] Comment on above: Performed By: #### U A, URDS #### [address] [place] [address] [place] Phencyclidine Screen,Urine Negative Normal Negative [facility] Comment on above: Performed By: #### U A, URDS #### [facility] [address] [place] [address] ECG 12 lead ECGon 08-03-2022 ECG 12 lead ECG [facility] [place] [address] [place] [address] Electrocardiograph Report Signed Patient: Betty Rosenberg MR#: [id number] 140 : 2000 Acct:[id number] Age/Sex: 21 / M ADM Date: 08/03/22 Loc: Room: [address] [place] [address] Type: ADM IN Attending Dr: Shubham Ding [...] MUS Signed By Princess Smalls MD 0 08/03/22 1630 Normal [facility] Eosinophils Auto (Bld) [#/Vo l]Ordered By: Christiano Phelps on 08-03-2022 Eosinophils (Bld) [#/Vol] 0.1 10*3/uL 0.0-0.45 [facility] Eosinophils/100 WBC Auto (Bl d)Ordered By: Christiano Phelps on 08-03-2022 Eosinophils/100 WBC (Bld) 1.7 % . [facility] Erythrocyte distribution wid th Auto (RBC) [Ratio]Ordered By: Christiano Phelps on 08-03-2022 Erythrocyte distribution width (RBC) [Ratio] 13.5 % 12.0-14.8 [facility] Ethanol [Mass/volume] in Ser um or PlasmaOrdered By: Christiano Phelps on 08-03-2022 Ethanol [Mass/Vol] mg/dL [facility] Ethanol [Mass/Vol] TNP [facility] Comment on above: Test not performed Ethyl Alcohol Profileon 07-16 Ethanol [Mass/Vol] mg/dL Normal [facility] Comment on above: Performed By: #### C MP, CBC, ETOH #### [facility] [address] Percent Ethanol Not performed Normal [facility] Comment on above: Result Comment: PERF ORMED BY: [place] [address] PATHOLOGIST JIG FITTER HANNY WEAVER M.D. Performed By: #### C MP, CBC, ETOH #### [facility] [address] Globulin Calc (S) [Mass/Vol] Ordered By: Christiano Phelps on 08-03-2022 Globulin (S) [Mass/Vol] 2.7 g/dL F [facility] Glucose [Mass/volume] in Ser um or PlasmaOrdered By: Christiano Phelps on 08-03-2022 Glucose [Mass/Vol] 86 mg/dL 70-100 [facility] Comment on above: ADA recommended refe rence rangeRandom Glucose Reference Range is dependent on time and content of last meal. Glucose of more than 200 mg/dL in a nonstressed, ambulatory subject supports the diagnosis of Diabetes Mellitus. Hematocrit Auto (Bld) [Volum e fraction]Ordered By: Christiano Phelps on 08-03-2022 Hematocrit (Bld) [Volume fraction] 43.8 % 38.8-50.0 [facility] Hemoglobin [Mass/volume] in BloodOrdered By: Christiano Phelps on 08-03-2022 Hemoglobin (Bld) [Mass/Vol] 14.6 g/dL 13.0-17.0 [facility] Ketones Auto test strip (U) [Mass/Vol]Ordered By: Christiano Phelps on 08-03-2022 Ketones (U) [Mass/Vol] Trace Negative [facility] Leukocytes [#/volume] correc michael for nucleated erythrocytes in Blood by Automated counOrdered By: Christiano Phelps on 08-03-2022 WBC corrected for nucl RBC Auto (Bld) [#/Vol] 5.2 10*3/uL 4.1-10.5 [facility] Lymphocytes Auto (Bld) [#/Vo l]Ordered By: Christiano Phelps on 08-03-2022 Lymphocytes (Bld) [#/Vol] 1.2 10*3/uL 1.00-4.8 [facility] Lymphocytes/100 WBC Auto (Bl d)Ordered By: Christiano Phelps on 08-03-2022 Lymphocytes/100 WBC (Bld) 23.9 % . [facility] MCH Auto (RBC) [Entitic mass ]Ordered By: Christiano Phelps on 08-03-2022 MCH (RBC) [Entitic mass] 28.8 pg 27.5-35.2 [facility] MCHC Auto (RBC) [Mass/Vol]Or dered By: Christiano Phelps on 08-03-2022 MCHC (RBC) [Mass/Vol] 33.5 g/dL 32.5-35.6 Fir [facility] MCV Auto (RBC) [Entitic vol] Ordered By: Christiano Phelps on 08-03-2022 MCV (RBC) [Entitic vol] 86.2 fL 83.5-101 F [facility] Monocyte distribution width [Entitic volume] in Blood by AutomatedOrdered By: Chirstiano Phelps on 08-03-2022 Monocyte distribution width Auto (Bld) [Entitic vol] 18.07 % 0.00-20.00 [facility] Monocytes Auto (Bld) [#/Vol] Ordered By: Christiano Phelps on 08-03-2022 Monocytes (Bld) [#/Vol] 0.4 10*3/uL 0.0-0.8 [facility] Monocytes/100 WBC Auto (Bld) Ordered By: Christiano Phelps on 08-03-2022 Monocytes/100 WBC (Bld) 8.3 % . [facility] Neutrophils Auto (Bld) [#/Vo l]Ordered By: Christiano Phelps on 08-03-2022 Neutrophils (Bld) [#/Vol] 3.4 10*3/uL 1.8-7.7 [facility] Neutrophils/100 WBC Auto (Bl d)Ordered By: Christiano Phelps on 08-03-2022 Neutrophils/100 WBC (Bld) 65.8 % . [facility] Nitrite Test strip Ql (U)Ord ered By: Christiano Phelps on 08-03-2022 Nitrite Ql (U) Negative Negative [facility] No Panel InformationOrdered By: Christiano Phelps on 08-03-2022 Estimated GFR (CKD-EPI) > 60.0 mL/Min [facility] Creatinine Clearance (Chem 144.27 [facility] Nucleated erythrocytes [Pres ence] in Blood by Automated countOrdered By: Christiano Phelps on 08-03-2022 Nucleated RBC Auto Ql (Bld) 0.2 /100{WBC} 0-0.5 [facility] Opiates [Presence] in Urine by Screen methodOrdered By: Christiano Phelps on 08-03-2022 Opiates Screen Ql (U) Negative Negative [facility] Phencyclidine Screen Ql (U)O rdered By: Christiano Phelps on 08-03-2022 Phencyclidine Ql (U) Negative Negative [facility] Platelet mean volume Auto (B ld) [Entitic vol]Ordered By: Christiano Phelps on 08-03-2022 Platelet mean volume (Bld) [Entitic vol] 8.8 fL 6.6-10.1 [facility] Platelets Auto (Bld) [#/Vol] Ordered By: Christiano Phelps on 08-03-2022 Platelets (Bld) [#/Vol] 201 10*3/uL 150-450 [facility] Potassium [Moles/volume] in Serum or PlasmaOrdered By: Christiano Phelps on 08-03-2022 Potassium [Moles/Vol] 4.0 mmol/L 3.5-5.1 [facility] Protein Auto test strip (U) [Mass/Vol]Ordered By: Christiano Phelps on 08-03-2022 Protein (U) [Mass/Vol] Negative [facility] Protein [Mass/volume] in Ser um or PlasmaOrdered By: Christiano Phelps on 08-03-2022 Protein [Mass/Vol] 6.6 g/dL 6.4-8.9 [facility] RBC Auto (Bld) [#/Vol]Ordere d By: Christiano Phelps on 08-03-2022 RBC (Bld) [#/Vol] 5.08 10*6/uL 3.90-5.60 [facility] Serum or plasma albumin/glob ulin mass ratioOrdered By: Christiano Phelps on 08-03-2022 Albumin/Globulin [Mass ratio] 1.4 {ratio} [facility] Serum or plasma anion gap de terminationOrdered By: Christiano Phelps on 08-03-2022 Anion gap [Moles/Vol] 6.4 mmol/L 6.0-15.0 [facility] Sodium [Moles/volume] in Ser um or PlasmaOrdered By: Christiano Phelps on 08-03-2022 Sodium [Moles/Vol] 139 mmol/L 136-145 [facility] Specific gravity Auto test s trip (U) [Rel density]Ordered By: Christiano Phelps on 08-03-2022 Specific gravity (U) [Rel density] 1.023 1.001-1.030 [facility] Urea nitrogen [Mass/volume] in Serum or PlasmaOrdered By: Christiano Phelps on 08-03-2022 Urea nitrogen [Mass/Vol] 12 mg/dL 7-25 [facility] Urinalysison 08-03-2022 Appearance (U) Clear Normal Clear [facility] Comment on above: Order Comment: Name Collection Type:: Clean-Voided Midstream Performed By: #### U A, URDS #### [facility] [address] [place] [address] [place] Bilirubin,Urine Negative Normal Negative [facility] Comment on above: Order Comment: Name Collection Type:: Clean-Voided Midstream Performed By: #### U A, URDS #### [facility] [address] [place] [id number] [place] Color (U) Yellow Normal Yellow [facility] Comment on above: Order Comment: Name Collection Type:: Clean-Voided Midstream Performed By: #### U A, URDS #### [facility] [address] [place] [address] Glucose Ql (U) Normal Normal Normal [facility] Comment on above: Order Comment: Name Collection Type:: Clean-Voided Midstream Performed By: #### U A, URDS #### [facility] [address] [place] [address] Ketones Ql (U) Trace High Negative [facility] Comment on above: Order Comment: Name Collection Type:: Clean-Voided Midstream Performed By: #### U A, URDS #### [address] Leukocyte esterase Test strip Ql (U) Negative Normal Negative [facility] Comment on above: Order Comment: Name Collection Type:: Clean-Voided Midstream Performed By: #### U A, URDS #### [facility] [address] [place] [address] Nitrite,Urine Negative Normal Negative [facility] Comment on above: Order Comment: Name Collection Type:: Clean-Voided Midstream Performed By: #### U A, URDS #### [address] Occult Blood,Urine Negative Normal Negative [facility] Comment on above: Order Comment: Name Collection Type:: Clean-Voided Midstream Result Comment: PERF ORMED BY: [place] [address] PATHOLOGIST JIG FITTER HANNY WEAVER M.D. Performed By: #### U A, URDS #### [facility] [address] [place] [address] [place] pH (U) 7.5 [pH] Normal 5.0-9.0 [facility] Comment on above: Order Comment: Name Collection Type:: Clean-Voided Midstream Performed By: #### U A, URDS #### [facility] [address] [place] [address] [place] Protein,Urine Negative Normal Negative [facility] Comment on above: Order Comment: Name Collection Type:: Clean-Voided Midstream Performed By: #### U A, URDS #### [facility] [address] [place] [address] Specificy [place],Urine 1.023 Normal 1.001-1.030 [facility] Comment on above: Order Comment: Name Collection Type:: Clean-Voided Midstream Performed By: #### U A, URDS #### [facility] [address] [place] [address] Urobilinogen,Urine Normal Normal Normal [facility] Comment on above: Order Comment: Name Collection Type:: Clean-Voided Midstream Performed By: #### U A, URDS #### [facility] [address] [place] [address] Urine clarity by refractomet ry automatedOrdered By: Christiano Phelps on 08-03-2022 Clarity Refractometry automated (U) Clear Clear [facility] Urine glucose measurement by automated test strip (mass/volume)Ordered By: Christiano Phelps on 08-03-2022 Glucose Auto test strip (U) [Mass/Vol] Normal mg/dL Normal [facility] Urine hemoglobin detection b y automated test stripOrdered By: Christiano Phelps on 08-03-2022 Hemoglobin Auto test strip Ql (U) Negative Negative [facility] Urine leukocyte esterase det ection by automated test stripOrdered By: Christiano Phelps on 08-03-2022 Leukocyte esterase Auto test strip Ql (U) Negative Negative [facility] Urobilinogen Auto test strip (U) [Mass/Vol]Ordered By: Christiano Phelps on 08-03-2022 Urobilinogen (U) [Mass/Vol] Normal mg/dL Normal [facility] WBC Auto (Bld) [#/Vol]Ordere d By: Christiano Phelps on 08-03-2022 WBC (Bld) [#/Vol] 5.2 10*3/uL 4.1-10.5 [facility] pH Auto test strip (U)Ordere d By: Christiano Phelps on 08-03-2022 pH (U) 7.5 [pH] 5.0-9.0 [facility] Cholesterol [Mass/volume] in Serum or PlasmaOrdered By: Brandon Ca on 06-13-2022 Cholesterol [Mass/Vol] 118 mg/dL 140-200 [facility] Comment on above: Chol less than 200 m g/dl low riskChol 201-239 mg/dl borderline riskChol 240 mg/dl and greater high risk Cholesterol in LDL Calc [Mas s/Vol]Ordered By: Brandon Ca on 06-13-2022 Cholesterol in LDL [Mass/Vol] 66 mg/dL 0-100 [facility] Comment on above: LDL ATP III CLASSIFI CATIONLDL less than 100 mg/dL OptimalLDL 100-129 mg/dL Near or above optimalLDL 130-159 mg/dL Borderline highLDL 160-189 mg/dL HighLDL greater than 189 mg/dL Very high Cholesterol in VLDL Calc [Ma ss/Vol]Ordered By: Brandon Ca on 06-13-2022 Cholesterol in VLDL [Mass/Vol] 10 mg/dL [facility] Lipid Panelon 06-13-2022 Cholesterol [Mass/Vol] 118 mg/dL Low 140-200 [facility] Comment on above: Result Comment: Chol less than 200 mg/dl low risk Chol 201-239 mg/dl borderline risk Chol 240 mg/dl and greater high risk Performed By: #### C MP, CBC, ETOH #### [facility] [address] [place] [id number] [place] Cholesterol in HDL [Mass/Vol] 42 mg/dL Normal 29-71 [facility] Comment on above: Result Comment: HDL CHOL ATP-III CLASSIFICATION Cardiovascular Risk HDL > or equal to 60 mg/dL LOW HDL < 40 mg/dL HIGH Performed By: #### C MP, CBC, ETOH #### [facility] [address] [place] [address] [place] Cholesterol.total/Abi sterol in HDL [Mass ratio] 2.8 {ratio} Normal <5.0 [facility] Comment on above: Performed By: #### C MP, CBC, ETOH #### [facility] [address] [place] [id number] [facility] LDL Cholesterol,Calculated 66 mg/dL Normal 0-100 [facility] Comment on above: Result Comment: LDL ATP III CLASSIFICATION LDL less than 100 mg/dL Optimal LDL 100-129 mg/dL Near or above optimal LDL 130-159 mg/dL Borderline high LDL 160-189 mg/dL High LDL greater than 189 mg/dL Very high Performed By: #### C MP, CBC, ETOH #### [facility] [address] Triglyceride w/Reflex 52 mg/dL Normal 0-149 [facility] Comment on above: Result Comment: TRIG ATP III CLASSIFICATION TRIG less than 150 mg/dL Normal TRIG 150-199 mg/dL Borderline high TRIG 200-500 mg/dL High TRIG greater than 500 mg/dL Very high Standard traceable to the Center for Disease Conrtrol and Prevention (CDC) test method. Performed By: #### C MP, CBC, ETOH #### [facility] [address] VLDL CHOLESTEROL 10 mg/dL Normal [facility] Comment on above: Performed By: #### C MP, CBC, ETOH #### [facility] [address] Serum or plasma high density lipoprotein (HDL) cholesterol measurementOrdered By: Brandon Ca on 06-13-2022 Cholesterol in HDL [Mass/Vol] 42 mg/dL [facility] Comment on above: HDL CHOL ATP-III CLA SSIFICATION Cardiovascular RiskHDL > or equal to 60 mg/dL LOWHDL < 40 mg/dL HIGH Serum or plasma total choles terol/high density lipoprotein (HDL) cholesterol mass ratOrdered By: Brandon Ca on 06-13-2022 Cholesterol.total/Abi sterol in HDL [Mass ratio] 2.8 {ratio} <5.0 [facility] Thyroid Stim Hormone w/Rflxo n 06-13-2022 Thyroid Stim Hormone w/Rflx 1.03 u[iU]/mL Normal 0.45-5.33 [facility] Comment on above: Performed By: #### C MP, CBC, ETOH #### [facility] [address] Thyrotropin [Units/volume] i n Serum or PlasmaOrdered By: Brandon Ca on 06-13-2022 TSH Qn 1.03 m[IU]/L 0.45-5.33 [facility] Triglyceride [Mass/volume] i n Serum or PlasmaOrdered By: Brandon Ca on 06-13-2022 Triglyceride [Mass/Vol] 52 mg/dL 0-149 [facility] Comment on above: TRIG ATP III CLASSIF ICATIONTRIG less than 150 mg/dL NormalTRIG 150-199 mg/dL Borderline highTRIG 200-500 mg/dL High TRIG greater than 500 mg/dL Very highStandard traceable to the Center for Disease Conrtrol and Prevention (CDC) test method. Vitamin D 25 Hydroxy Totalon 06-13-2022 Vitamin D 25 Hydroxy Total 50.0 ng/mL Normal 30-100 [facility] Comment on above: Result Comment: GREY MIN D STATUS 25(OH)VITAMIN D RANGE (ng/mL) Deficient <20 Insufficient 20 to <30 Sufficient 30 to 100 Reference: Al Napier, Yvonne BUCHANAN, et al. Evaluation,treatment, and prevention of vitamin D deficiency; an Endocrine Society clinical practice guideline. JCEM. 2010; 96(7):1911-30. PERFORMED BY: [place] [address] PATHOLOGIST JIG FITTER HANNY WEAVER M.D. Performed By: #### C MP, CBC, ETOH #### [address] Vitamin D+Metabolites [Mass/ volume] in Serum or PlasmaOrdered By: Brandon Ca on 06-13-2022 Vitamin D+Metabolites [Mass/Vol] 50.0 ng/mL 30-100 [facility] Comment on above: VITAMIN D STATUS 25( [place])VITAMIN D RANGE (ng/mL) Deficient <20 Insufficient 20 to <30Sufficient 30 to 100Reference: Al Napier, Yvonne BUCHANAN, et al. Evaluation,treatment, and prevention of vitamin D deficiency; an Endocrine Society clinical practice guideline. JCEM. 2010; 96(7):1911-30. ACETAMINOPHENon 06-12-2022 Acetaminophen [Mass/Vol] ug/mL Critically low 10.0-30.0 [facility] Comment on above: Performed By: #### A CET, SALYC, ETH, CMP #### [facility] [address] [address] [address] Annabella Lara CBC AUTO DIFFon 06-12-2022 BASO # 0.0 103/ul Normal 0.0-0.1 [facility] Comment on above: Performed By: #### C BC #### [facility] [address] [place] [address] Dr. Annabella Lara Basophils/100 WBC (Bld) 0.3 % Normal 0.2-2.0 [facility] Comment on above: Performed By: #### C BC #### [facility] [address] [place] [address] Dr. Annabella Lara EO # 0.0 103/ul Normal 0.0-0.7 [facility] Comment on above: Performed By: #### C BC #### [facility] [address] [address] [address] Annabella Lara Eosinophils/100 WBC (Bld) 0.5 % Critically low 0.9-7.0 [facility] Comment on above: Performed By: #### C BC #### [facility] [address] [place] [address] Dr. Annabella Lara Erythrocyte distribution width (RBC) [Ratio] 12.1 % Normal 11.0-15.0 [facility] Comment on above: Performed By: #### C BC #### [facility] [address] [place] [address] Dr. Annabella Lara Hematocrit (Bld) [Volume fraction] 46.8 % Normal 42.0-54.0 [facility] Comment on above: Performed By: #### C BC #### [facility] [address] [place] [address] Dr. Annabella Lara Hemoglobin (Bld) [Mass/Vol] 15.9 g/dL Normal 14.0-18.0 [facility] Comment on above: Performed By: #### C BC #### [facility] [address] [address] [address] Annabella Lara IG # 0.02 10e3/ul Normal 0.00-0.03 [facility] Comment on above: Performed By: #### C BC #### [facility] [address] [place] [address] [address] Annabella Lara IG % 0.3 % Normal 0.0-0.5 [facility] Comment on above: Performed By: #### C BC #### [facility] [address] [place] [address] Dr. Annabella Lara LYMPH # 1.2 103/ul Normal 1.2-3.8 [facility] Comment on above: Performed By: #### C BC #### [facility] [address] [place] [address] Dr. Annabella Lara Lymphocytes/100 WBC (Bld) 15.9 % Critically low 20.5-60.0 [facility] Comment on above: Performed By: #### C BC #### [facility] [address] [place] [address] Dr. Annabella Lara MANUAL DIFF REQ NO Normal [facility] Comment on above: Performed By: #### C BC #### [facility] [address] [place] [address] Dr. Annabella Lara MCH (RBC) [Entitic mass] 28.9 pg Normal 25.9-34.0 [facility] Comment on above: Performed By: #### C BC #### [facility] [address] [place] [address] Dr. Annabella Lara MCHC (RBC) [Mass/Vol] 34.0 g/dL Normal 29.9-35.2 [facility] Comment on above: Performed By: #### C BC #### [facility] [address] [place] [address] Dr. Annabella Lara MCV (RBC) [Entitic vol] 84.9 fL Normal 80.0-94.0 [facility] Comment on above: Performed By: #### C BC #### [facility] [address] [place] [address] Dr. Annabella Lara MONO # 0.4 103/ul Normal 0.3-0.8 [facility] Comment on above: Performed By: #### C BC #### [facility] [address] [place] [address] Dr. Annabella Lara Monocytes/100 WBC (Bld) 5.6 % Normal 1.7-12.0 [facility] Comment on above: Performed By: #### C BC #### [facility] [address] [place] [address] Dr. Annabella Lara NEUT # 5.9 103/ul Normal 1.4-6.5 [facility] Comment on above: Performed By: #### C BC #### [facility] [address] [place] [address] Dr. Annabella Lara Neutrophils/100 WBC (Bld) 77.4 % Critically high 43.0-75.0 [facility] Comment on above: Performed By: #### C BC #### [facility] [address] [place] [address] Dr. Annabella Lara Platelet mean volume (Bld) [Entitic vol] 10.2 fL Normal 9.5-13.5 [facility] Comment on above: Performed By: #### C BC #### [facility] [address] [place] [address] Dr. Annabella Lara PLT 231 103/ul Normal 150-450 [facility] Comment on above: Performed By: #### C BC #### [facility] [address] [place] [address] Dr. Annabella Lara RBC 5.51 106/ul Normal 4.70-6.10 [facility] Comment on above: Performed By: #### C BC #### [facility] [address] [place] [address] Dr. Annabella Lara WBC 7.6 103/ul Normal 4.0-11.0 [facility] Comment on above: Performed By: #### C BC #### [facility] [address] [place] [address] [address] Annabella Lara [facility] SARS-CoV-2 (COVID-19) RNA KATY+probe Ql (Unsp spec) Not detected Normal NOT DETECTED [facility] Comment on above: Result Comment: When diagnostic [...] for this test is supported by the Prevocational/Rehabilitation Counselor of Health and Human Service's declaration that [...] used). Performed By: #### C VDTBH #### [facility] [address] [address] [address] Annabella Lara DRUG SCREEN RAPID (URINE)on 06-12-2022 AMP Negative Normal NEGATIVE [facility] Comment on above: Performed By: #### D RUGRPD ####[facility] [id number] [place] [address]Dr. Annabella Lara BAR Negative Normal NEGATIVE [facility] Comment on above: Performed By: #### D RUGRPD ####[facility] [id number] [place] [address]Dr. Annabella Lara BUP Negative Normal NEGATIVE [facility] Comment on above: Performed By: #### D RUGRPD ####[facility] [id number] [place] [address]Dr. Annabella Lara BZO Negative Normal NEGATIVE [facility] Comment on above: Performed By: #### D RUGRPD ####[facility] [id number] [place] [address]Dr. Annabella Lara DEQUAN Negative Normal NEGATIVE [facility] Comment on above: Performed By: #### D RUGRPD ####[facility] [id number] [place], [place] [address]Dr. Annabella Lara CUT-OFFS SEE BELOW Normal [facility] Comment on above: Result Comment: AMP (Amphetamine): 500ng/mL, BAR (Barbituates): 200 ng/mL, BZO (Benzodiazepines): 150 ng/mL, BUP (Buprenorphine): 10 ng/mL, DEQUAN (Cocaine): 150 ng/mL, mAMP (Methamphetamine): 500 ng/mL, MTD (Methadone): 200 ng/mL, OPI (Opiates): 100 ng/mL, OXY (Oxycodone): 100 ng/mL, PCP (Phencyclidine): 25 ng/mL, PPX (Propoxyphene): 300 ng/mL, THC (Cannabinoids): 50 ng/mL, TCA (Trycyclic Antidepressants): 300 ng/mL Performed By: #### D RUGRPD ####[facility] [address] [place], [place] [address]Dr. Ngozigenna Lara DRUG CUT HEADER DRUG CLASS TEST SYSTEM CUT-OFF CONCENTRATIONS ARE FOLLOWS: Normal [facility] Comment on above: Performed By: #### D RUGRPD ####[facility] Xlpagaotrg[address] [place], [place] [address]Dr. Annabella Lara mAMP Negative Normal NEGATIVE [facility] Comment on above: Performed By: #### D RUGRPD ####[facility] U[address]muu[address]kw[address] [place], [place] [address]Dr. Annabella Lara MTD Negative Normal NEGATIVE [facility] Comment on above: Performed By: #### D RUGRPD ####[facility] Nimpsynrms[address] [place], [place] [address]Dr. Annabella Lara OPI Negative Normal NEGATIVE [facility] Comment on above: Performed By: #### D RUGRPD ####[facility] Bywpwstsdq[address] [place], [place] [address]Dr. Annabella Lara OXY Negative Normal NEGATIVE [facility] Comment on above: Performed By: #### D RUGRPD ####[facility] [address] [place] [address]Dr. Annabella Lara PCP Negative Normal NEGATIVE [facility] Comment on above: Performed By: #### D RUGRPD ####[facility] Ztt[address]ukqo[address] [place] [address]Dr. Annabella Lara PPX Negative Normal NEGATIVE [facility] Comment on above: Performed By: #### D RUGRPD ####[facility] [address] [place] [address]Dr. Annabella Lara TCA Positive Abnormal NEGATIVE [facility] Comment on above: Performed By: #### D RUGRPD ####[facility] Ro[address]ptdfai[address] [place] [address]Dr. Annabella Lara THC Positive Abnormal NEGATIVE [facility] Comment on above: Performed By: #### D RUGRPD ####[facility] Xote[address]ie[address] [place] [address]Dr. Annabella Lara ETHANOL (BLD ALC)on 06-13-19 23 ALC NOTE NOTE: 80 mg/dl is th e legal limit for a blood alcohol level Normal [facility] Comment on above: Performed By: #### A CET, SALYC, ETH, CMP ####[facility] Mniypsgrlb[address] [place], [place] [address]Dr. Annabella Lara Ethanol [Mass/Vol] mg/dL Normal [facility] Comment on above: Performed By: #### A CET, SALYC, ETH, CMP ####[facility] Qpfgasvrij[address] [place] [address]Dr. Annabella Lara PROF 14(COMP METB)on 023 Albumin [Mass/Vol] 4.4 g/dL Normal 3.4-5.0 [facility] Comment on above: Performed By: #### A CET, SALYC, ETH, CMP ####[facility] Dvjdnoopbr[address] [place] [address]Dr. Annabella Lara Albumin/Globulin [Mass ratio] 1.3 {ratio} Normal [facility] Comment on above: Performed By: #### A CET, SALYC, ETH, CMP ####[facility] Kq[address]qljhse[address] [place] [address]Dr. Annabella Lara ALP [Catalytic activity/Vol] 82 U/L Normal 46-116 [facility] Comment on above: Performed By: #### A CET, SALYC, ETH, CMP ####[facility] [address]sf[address] [place] [address]Dr. Annabella Lara ALT [Catalytic activity/Vol] 57 U/L Normal 16-63 [facility] Comment on above: Performed By: #### A CET, SALYC, ETH, CMP ####[facility] Grzknbhbbd4[address] [place] [address]Dr. Annabella Lara Anion gap [Moles/Vol] 13.6 mmol/L Normal [facility] Comment on above: Performed By: #### A CET, SALYC, ETH, CMP ####[facility] Yzmywqxydm[address] [place], [place] [address]Dr. Annabella Lara AST [Catalytic activity/Vol] 25 U/L Normal 15-37 [facility] Comment on above: Performed By: #### A CET, SALYC, ETH, CMP ####[facility] Eatnwuaqbf[address] [place], [place] [address]Dr. Annabella Lara Bilirubin [Mass/Vol] 0.5 mg/dL Normal 0.2-1.0 [facility] Comment on above: Performed By: #### A CET, SALYC, ETH, CMP ####[facility] Qsmymrxbmj[address] [place], [place] [address]Dr. Annabella Lara Calcium [Mass/Vol] 9.2 mg/dL Normal 8.5-10.1 [facility] Comment on above: Performed By: #### A CET, SALYC, ETH, CMP ####[facility] Fcsxqyowqt[address] [place], [place] [address]Dr. Annabella Lara Chloride [Moles/Vol] 104 mmol/L Normal 98-107 [facility] Comment on above: Performed By: #### A CET, SALYC, ETH, CMP ####[facility] [address]yxq[address] [place] [address]Dr. Annabella Lara CO2 [Moles/Vol] 27.7 mmol/L Normal 21.0-32.0 [facility] Comment on above: Performed By: #### A ANDRES DECKER, ETH, CMP ####[facility] Wx[address]wr[address] [place] [address]Dr. Annabella Lara Creatinine [Mass/Vol] 0.71 mg/dL Normal 0.70-1.30 [facility] Comment on above: Performed By: #### A CET, SALYC, ETH, CMP ####[facility] Ufr[address]lecrlr[address] [place] [address]Dr. Annabella Lara EGFR-AF GERMAN >60 Normal >=60 [facility] Comment on above: Performed By: #### A CET, SALERICKA, ETH, CMP ####[facility] [address]ucp[address] [place] [address]Dr. Annabella Lara EGFR-NON AF GERMAN >60 Normal >=60 [facility] Comment on above: Performed By: #### A CET, SALYC, ETH, CMP ####[facility] Xuefwvvkqz[address]132 [place] [address]Dr. Annabella Lara Globulin (S) [Mass/Vol] 3.4 g/dL Normal [facility] Comment on above: Performed By: #### A CET, SALERICKA, ETH, CMP ####[facility] Gnyqyafjcr[address] [place] [address]Dr. Annabella Lara Glucose [Mass/Vol] 96 mg/dL Normal 74-106 [facility] Comment on above: Performed By: #### A CET, SALYC, ETH, CMP ####[facility] Xdsicpyznr4083 [place] [address]Dr. Annabella Lara Potassium [Moles/Vol] 4.3 mmol/L Normal 3.5-5.1 [facility] Comment on above: Performed By: #### A CET, SALYC, ETH, CMP ####[facility] [address]hy[address] [place] [address]Dr. Annabella Lara Protein [Mass/Vol] 7.8 g/dL Normal 6.4-8.2 [facility] Comment on above: Performed By: #### A CET, SALYC, ETH, CMP ####[facility] [address] [place] [id number]. Annabella Lara Sodium [Moles/Vol] 141 mmol/L Normal 136-145 [facility] Comment on above: Performed By: #### A CET, SALYC, ETH, CMP ####[facility] Utp[address]mpaqc5[address] [place] [id number]. Annabella Lara Urea nitrogen [Mass/Vol] 13.0 mg/dL Normal 6.4-19.3 [facility] Comment on above: Performed By: #### A CET, SALYC, ETH, CMP ####[facility] Ofdikxqzak[address] [place] [address]Dr. Annabella Lara Urea nitrogen/Creatinine [Mass ratio] 18.3 mg/mg Normal [facility] Comment on above: Performed By: #### A CET, SALYC, ETH, CMP ####[facility] Rk[address]rwfpkp27[address] [place] [address]Dr. Annabella Lara SALICYLATEon 06-12-2022 SALICYLATE <2.8 Normal <=19.9 [facility] Comment on above: Performed By: #### A CET, SALYC, ETH, CMP #### [facility] [address] [place] [address] [address] Annabella Lara XR CSPINE MIN 4 VIEWSon 05-17 XR CSPINE MIN 4 VIEWS EXAMINATION: XR [...] [place] Date: 2022-06-04 14:08 Normal [facility] DRUG SCREEN RAPID (URINE)on 05-28-2022 AMP Negative Normal NEGATIVE [facility] Comment on above: Performed By: #### D RUGRPD ####[facility] [address]fpmcoavy[address] [place] [id number]. Ngozigenna Lara BAR Negative Normal NEGATIVE [facility] Comment on above: Performed By: #### D RUGRPD ####[facility] Y[address]rydi[address] [place] [id number]. Ngozigenna Lara BUP Negative Normal NEGATIVE [facility] Comment on above: Performed By: #### D RUGRPD ####[facility] [address]xpjaroq[address] [place] [phone]. Ngozigenna Lara BZO Negative Normal NEGATIVE [facility] Comment on above: Performed By: #### D RUGRPD ####[facility] [address]pb[address]qv[address] [place], [place] [address]Dr. Ngozigenna Lara DEQUAN Negative Normal NEGATIVE [facility] Comment on above: Performed By: #### D RUGRPD ####[facility] Bat[address] [place], [place] [address]Dr. Annabella Lara CUT-OFFS SEE BELOW Normal [facility] Comment on above: Result Comment: AMP (Amphetamine): 500ng/mL, BAR (Barbituates): 200 ng/mL, BZO (Benzodiazepines): 150 ng/mL, BUP (Buprenorphine): 10 ng/mL, DEQUAN (Cocaine): 150 ng/mL, mAMP (Methamphetamine): 500 ng/mL, MTD (Methadone): 200 ng/mL, OPI (Opiates): 100 ng/mL, OXY (Oxycodone): 100 ng/mL, PCP (Phencyclidine): 25 ng/mL, PPX (Propoxyphene): 300 ng/mL, THC (Cannabinoids): 50 ng/mL, TCA (Trycyclic Antidepressants): 300 ng/mL Performed By: #### D RUGRPD ####[facility] [address] [place], [place] [address]Dr. Annabella Lara DRUG CUT HEADER DRUG CLASS TEST SYSTEM CUT-OFF CONCENTRATIONS ARE FOLLOWS: Normal [facility] Comment on above: Performed By: #### D RUGRPD ####[facility] [address] [place], [place] [address]Dr. Annabella Lara mAMP Negative Normal NEGATIVE [facility] Comment on above: Performed By: #### D RUGRPD ####[facility] [address]qi[address] [place] [address]Dr. Annabella Lara MTD Negative Normal NEGATIVE [facility] Comment on above: Performed By: #### D RUGRPD ####[facility] T[address]uxty[address] [place] [address]Dr. Annabella Lara OPI Negative Normal NEGATIVE [facility] Comment on above: Performed By: #### D RUGRPD ####[facility] Qeosvrpzau[address] [place] [address]Dr. Annabella Lara OXY Negative Normal NEGATIVE [facility] Comment on above: Performed By: #### D RUGRPD ####[facility] [address]fsdp36[address] [place] [address]Dr. Annabella Lara PCP Negative Normal NEGATIVE [facility] Comment on above: Performed By: #### D RUGRPD ####[facility] [address]ipl[address] [place] [address]Dr. Annabella Lara PPX Negative Normal NEGATIVE [facility] Comment on above: Performed By: #### D RUGRPD ####[facility] Z[address] [place] [address]Dr. Annabella Lara TCA Positive Abnormal NEGATIVE [facility] Comment on above: Performed By: #### D RUGRPD ####[facility] [address]jv[address] [place] [address]Dr. Annabella Lara THC Positive Abnormal NEGATIVE [facility] Comment on above: Performed By: #### D RUGRPD ####[facility] Whx[address]zzbt47[address] [place] [address]Dr. Annabella Lara YESENIA w/Reflex if POSon 2022 Nuclear Ab Ql (S) Negative Invalid Interpretation Code Negative [facility] Comment on above: Result Comment: Perf ormed at: [facility] [id number] [place], [place] [id number] PhD Missael Oneal Performed By: #### 2 504401, 9907286, 50461894, 43447524, 2415023, 29601123, 8327212, [id number] #### [place] [facility] [address] [place] [address] Coding Summary.on 04-23-2022 Coding Summary. CD:[id number] G h0bWw+PGhlYWQ+LE9YCKU xX25ysAFypI7IE2oWMG4N XIHCCYLFCH0MNG5bzHX8D RjgF5BhquNc BmyedMOlGN70WJt4WBQ1n YxpCIlarU5knJXrG8h4Vt WoJM22zZ76UVyhBPZsQxA 3LjZpbjsgbWFy L5lzIdUxrJRxPge+PHRhY mxlIHdpZHRoPScxMDAlJy ZxlFjoPL4iUa1dOVPjMSE vbGxhcHNlOiBj h8rsYAWkIAbpJC1xuCadU 0AqmYJ8ELVlw6w9Mi37yM I+AWMmOAE7sYxxLAotg00 9OtBjj1xdWEP9 yLEpUZjmIID1M56ks8U3Q DWiSRPbBNB3nHM3eA6kuU pcbxowF7SbyEIdYjJ6IMR 1rYFqeH3xmZkm olmqtE2xMhr+M98VZD6WM APKUQ9GSac7C5OtGfbfaC I+VY18WKOfAD95eMIpySP rt0knnAj4ShLo VJLhJTU0hVucBZmgx0SzO ARwT71ykYNik7E2HLPadA opyODjMgEeuYA7zV9eZLo gfnsvd3njftlm Xykcx9vnjj21zQ48K81vH FdrUKKwCOV6HFPcORBddW fraw4jdH6mRt5+AKedi2v pc4mbvBo3GrBp WKOugqDoeNltADD6f8KgN n72M3KibFczy5KzHgq4ps 59bIAcv9I6zGZ6YGvkRFB oeB4bGSqmXhV2 VSSaRoOznJ86dRAdUNbdC m4qhXsxyTsaIP1kRIJone dmTYFjuL2mHPUbcSNahPn tAS0aTFHrmsqs z436XcHuIPR5UFPkhTXtP 3TxzQ5yUnTyIKIrMUCmE1 EbvGVwVAfgK643YRyjXbU 9VCOjitCkG8Yg TEWawKzrQqU8v7H8Vy1Uf 3DjwejwXSJ5SOmjGVEjHh U8VjZsEoA1P8NrPbp3QLB glYejND4lA0Da CIBkgnpozxqffKC9WDRfE RVvqL07hEHfRPasDg9do9 I7k660CVKzYGUyjJ91Fn9 udDogMTBwdCBU vG6wlpnik1vnveovOlRbQ UVsBLe7TCv1VEIaiYvjIk DdKKR1AwJ6OBR3pIYeqS8 iuVkbyassrC9a Oyc+I90nwL3sXQQ6CSZ4o abfUMEmmzGrIA85YG21K9 RyPjwvdGFibGU+PGRpdiB wcYooYJ0wDbDh q0kpw2EpXRccT0CqPPZrU WpwDqo5YDAzUGK0xAJ5jE 9hLBQjWEclr5M7bIF8G0H vywSshn0ve5eq HIYaNFugE90wyGDzt7L9L KSzbMH7RKWayKdqWmTeuT 93Oyc+WHPzfYttm6EbKan yj8vyg4wvqTs4 AnMtVBSqrdKhnIbeKCR5w 6MlOi33Z93tJHnrOWCmZV MlUCVoHCKzlLrrwr6naW6 wIi8+PGNvbCB3 nLZ1fZ6dAZAvBgV2GLnaG 727PgLztUTpGfgeh0knx4 otaVr2TlLnDQBvzhYwtGu bBHB2c5UzAx60 D82aRHonFKHjZSRpWDSiQ HMozNuonr9ufR9rWz5+PC 9tx4mqfk03iU95jAY+PHR kFHE8dVorIAkg DZKwmW9fAWhbKiG5GFTwI mQwiR83rXWdHYtiKa0dpN adlTphDT2sRHPfpppyw64 6MiKyo6roTLDx tJBgMIfjSST9C30ol6U5M VPjUDDkEWS9fJW0sU8kmW lnbjogbGVmdDsgdmVydGl tPQcsLBxtQ993 IHRvcDsnPlBhdGllbnQgT fFvBNz7R0QeKbn1OQBtyQ cvON1zuTWgVUkgOe2tyGl oiWraCN3pBNQy hzpnm815JbKts0cgMDBjz QPlBRbgHBH3M46vq4C4UM ReAVMkMDS5cUX1aP7vcDs nbjogbGVmdDsg dlIyiIxlEFzuDJmhG310O HRvcDsnPkJpcnRoIERhdG P6FB34NP50bBIfw7K8hZE 3P4MrCBJfgunq rrohaRM6LDUnZSBriC17U e1woEdmXt5kIUWlXFH4RP UmzMPvP3DbnZ0zQqGcOKL nAIGqZ1XbyBTe ABhvO746RKpcOsF5MUJtn pJbL9TpAWOsaIlaCwF2l2 Y0Ew6RB0A7DT61HO31hJM dq5W9lDS4E3Te KQKfvnavecdmpCS5PLLeU QBnwW27Tb2dsBzuSm1oJM BfCSM6LOKieBNgV9ZayS9 yOiAjMDAwMDAw T4BfvQEwBMyaD187IEkhJ sB3NRYpnhVvR6YiIRJmeM daTkH0m8F7Ps0XIXt7ZD2 6RY16sWZsi6K7 vGI4H5UzLEDvnwnvqzwit QZ9NSVtLRCnzS04Sn9dbM baRb7aWTHrBQM8UKDlmJR pE2OedX8fKgZr FOZlXKAtK0PliUOnYYnuE 475OYzyBaS8TLQkwnQjO1 VgKLExtRonPgS4y6B3Rf0 HUBCgTV75OWK5 nWO8GK75RU63K4PoBopca GFibGU+PHRhYmxlIHdpZH RoPScxMDAlJyBzdHlsZT0 wAd3bBGVwRDUz tCsrlCJqPqDkc4lcEYVlL KsvGW6ivToeY4LriWC3XP Qtd0z3Xf37N02bW5XenXU +RSSamKR4wFK4 sB1gUdBrQvQ7QDkmE690S sLidIFpUzguc3pix0jiyD c3DcX6ATJhqyYqtFciIXM 2f3AnUg09D60d IHdpZHRoPSIxNSUiIHZhb Gxvvp7voM6jDi6+PGNvbC H5gKZ8pT2uSkHyOhG7AEg jY052RoDzlRBa Kyiyh0wiz9jpwGu3MvJdX BSakgCxxDvkSAH6v9WcUk 68X1JgcIqfp0VlPsl4qt7 5mRDno0V2pTP1 S1ChETTfjewhjUZtqEunA U9sESKykixfMHBzfX4xQD BrG8r2OgOsDjQ7WRanA8R lezT6AHWyuVCr HJshECY3X29wx6O1VBKbW RTiZTA6lSO2fM2srRgpcf ogbGVmdDsgdmVydGljYWw rCDggT725CLHn tUfcAFBqqR1gTLDvpDFgs NtcKY6zMSEvnjxuVebOMK OUUbdmCXGXJCzWZQ46VT7 0lYRay7Z7uGR3 X1SaLLZjhtzektciiUV0E KIlISGilR53bPVuFJtvTt 9mw6I4n292NIJoNRTjlH3 2Fq9faJlaGLVt lLPUaD9utgkvf0jdyaxqB lEtRYMoTNl2PRt5FSKvoS srZcQuZTR8PaQ9AIF0eIN plS5nePmjvpyf xD8bSnm+MDcvMTkvMjAwM zwvdGQ+EVKsIMH9bVhrRG rkYSQdxH1tWNTgO6l8MjX gPvN4JDzsK8Ap EYJkgopcKw83eA7zQuViR wB1YMtdT5CgwzG8RGAacX NfMNpjAPY9L33xl2Q4BHF tOFMwBTX2qAE9 kB1abNqmswujjMDdbHqsr pRriManRNzuRDzhH876XD LkpWzpMaT3EChuFENvPI6 1GK17kTBhc6B7 pEJ5S6PcHFDhcvnjkbbwy DB4ASHgBQPghY02oDWcMH coFb5ij6S1u236CUBnXLQ etB56Dt6icCrs IAQwvPUExE0fxdxrr5itt asdNaLeCMPnMIw2LZy0HK QetXjmUzUhIWZ1DbC5ZAB 0sPGcnE5nlFgi ebkseP6eLig+TWFsZTwvd GQ+KVMeZQU3gKpuJXvrIT IbvE2zNJNwW2g3GoOvKpE 0DNzpO6DvRFLw pfexQs08jG2nQfJgUxB2Y GysL1MxkpT1NCFqyABbJX rdHXJ3S29qd1E3XDXiCPH nPAJ2qHQ0oE6y bGlnbjogbGVmdDsgdmVyd EuxETgkNNgcQ318KWDngE cgAl17tPCjxPaexeT1U6L kPjwvdHI+PC90 SVJrSV83yTCioQGcw0wpr Wx4BcVpMWObEQT3sLdmAF gix0NdUGMgO80snXGly8P 6IGNvbGxhcHNl CbGwkGS3mK5eNVlfyhuir 0pqqnycGgimp5dlzl22jJ 69L57kZWanXZHnSFPzSDK kUFQohJrxph2p nG8eVk5+NJGweSC8kVJ2b L7aKhMlTxX8WFsbC476Sd AelYQdFxqso7nir0atsTv 9IjIwJSIgdmFs jDmeUCY9c2AzDh05Q61uP HdpZHRoPSIyMCUiIHZhbG mqou7pxR2yBl1+TI9qi5r rjc99uK97tAG+ YNMoMDI4mHzbRYlnHZSwr C1gPAwpBzN9TUMuDfGdxB 28pKEzMDahOq4jnXasvSy uZC7oECFlpzhk m599UrYuq7tyRPCsmFGvQ YjaXWW8B86cx7O3NPJbDI CkONR1jIT3aK4kcKsgdqc gbGVmdDsgdmVy wGkdSJmiSAjxD137ABVvr UolXoRvdZHxC3zajyLCOL 1lOjwvdGQ+BKEuUUP5vPe sIYxhWBWkoA0h GXHpR0h2HcJjPiO3FTyvE 0IdcrQ5IYTdeZDlDPTmlL HQpG1eyjwlc4ztmxmnFdW bMWUwTXt1IUm1 CTUtsAcoIuYfTRH4BgU7R RM3uXPdqZ4dwWmnvyanjJ 9wOyc+RklOOjwvdGQ+PHR yDHI1gPlvGSym QTNfhO7yTVHrZ6h9OpViV qV9NTjzW3XojpM8NLBtcU YwJXPwfARMgI6gafvel0g vcjogIzAwMDAw RJf0XGd8TKXsfJjgRhOwL JM1NqI6MVE2jOKptN6snU wzkldwxS0mXyk+TVJOOjw vdGQ+PHRkIHN0 rOlhGZadFGHlsO9vMYDrI 8s1NzMkExB5WYjiJ5Lbki B4DDFtmLUkFHJppPGDaG7 jcorbq6hvfjpw GhYxANMgNYu9XEj1RRTyb VxqXiQgTMI6KpB1XNU9cH EpoU5ybBngqrfjyV9tNbm +ONR2LOC9HK45 EQ06A3EuWybvvHXbeBJ+P HRhYmxlIHdpZHRoPScxMD RjZlTeoBifCN8yDh8aXLU yLWNvbGxhcHNl OiBj (more content not included)... Normal [facility] RF Quanton 04-23-2022 Rheumatoid factor Qn [IU]/mL Invalid Interpretation Code <14.0 [facility] Comment on above: Result Comment: Perf ormed at: [facility] [id number] [place], [place] [id number] PhD Missael Oneal Performed By: #### 2 178838, 9293180, 77803752, 16005047, 1109480, 77256727, 0485919, 54359911 #### [facility] [address] [place] [address] BMPon 04-19-2022 Anion gap [Moles/Vol] 12 mmol/L Normal 6-16 [facility] Comment on above: Performed By: #### 2 122455, 6962360, 70519040, 71810793, 9247962, 53236896, 5409789, 01118549 #### [facility] [address] [place] [address] Calcium [Mass/Vol] 9.7 mg/dL Normal 8.9-11.1 [facility] Comment on above: Performed By: #### 2 756133, 7965290, 93534338, 96575643, 0768478, 55648140, 0343901, 60382830 #### [facility] [address] [place] [address] Chloride [Moles/Vol] 99 mmol/L Low 101-111 [facility] Comment on above: Performed By: #### 2 914720, 3880375, 60374568, 87330968, 4762373, 02604411, 1732421, 57114910 #### [facility] [address] [place] [address] CO2 [Moles/Vol] 32 mmol/L High 21-31 [facility] Comment on above: Performed By: #### 2 568207, 7035967, 68444160, 13293352, 5966710, 43101551, 9938728, 37918924 #### [facility] [address] [place] [address] Creatinine [Mass/Vol] 0.8 mg/dL Normal 0.5-1.3 [facility] Comment on above: Performed By: #### 2 729603, 3633437, 37556125, 36734044, 6257501, 90880367, 5064021, 80509574 #### [facility] [address] [place] [address] Glucose [Mass/Vol] 92 mg/dL Normal 55-199 [facility] Comment on above: Result Comment: If t his glucose result represents a fasting glucose, interpretation should refer to the following reference range: 55-99 mg/dL Performed By: #### 2 392470, 8537967, 26819151, 92469181, 8505260, 78412217, 5301121, 75040834 #### [facility] [address] [place] [address] Potassium [Moles/Vol] 4.0 mmol/L Normal 3.5-5.3 [facility] Comment on above: Performed By: #### 2 129516, 5521592, 87033924, 89983339, 8461172, 23391204, 0309570, 09024598 #### [facility] [address] [place] [address] Sodium [Moles/Vol] 139 mmol/L Normal 135-145 [facility] Comment on above: Performed By: #### 2 452291, 7185051, 14301462, 23055031, 3575605, 29887775, 0728888, 05403516 #### [facility] [address] [place] [address] Urea nitrogen [Mass/Vol] 13 mg/dL Normal 5-21 [facility] Comment on above: Performed By: #### 2 108158, 3117997, 29292819, 43998638, 1247115, 26478166, 8129338, 75353225 #### [facility] [address] [place] [address] Urea nitrogen/Creatinine [Mass ratio] 16 No Units Normal 10-20 [facility] Comment on above: Performed By: #### 2 326976, 2488250, 33938830, 79363666, 8810269, 01670146, 8200266, 23045349 #### [facility] [address] [place] [address] CBC w/Indiceson 04-19-2022 Erythrocyte distribution width (RBC) [Ratio] 13.6 % Normal 10.9-14.2 [facility] Comment on above: Performed By: #### 2 621515, 4762224, 45427248, 67270108, 8520363, 33922068, 5912834, 84165586 #### [facility] [address] [place] [address] Hematocrit (Bld) [Volume fraction] 46.2 % Normal 37.7-49.0 [facility] Comment on above: Performed By: #### 2 713020, 3667036, 49576140, 97354732, 3306753, 55269941, 0754485, 33598133 #### [facility] [address] [place] [address] Hemoglobin (Bld) [Mass/Vol] 15.9 g/dL Normal 13.5-17.5 [facility] Comment on above: Performed By: #### 2 582444, 1103416, 80861586, 59048365, 0929209, 87762667, 1043411, 66815129 #### [facility] [address] [place] [address] MCH (RBC) [Entitic mass] 29.8 pg Normal 27.0-34.0 [facility] Comment on above: Performed By: #### 2 550335, 7282956, 88712187, 17668734, 5713145, 74874324, 3695871, 87304030 #### [place] [address] [id number] MCHC (RBC) [Mass/Vol] 34.4 g/dL Normal 31.4-36.0 [facility] Comment on above: Performed By: #### 2 797798, 7161775, 49768281, 00248783, 0100020, 69219311, 0084758, 68193441 #### [facility] [address] [place], [place] [address] MCV (RBC) [Entitic vol] 86.5 fL Normal 80.0-100.0 [facility] Comment on above: Performed By: #### 2 724552, 7946759, 26511963, 93924907, 2642682, 55673361, 7929624, 92387970 #### [place] [facility] [address] [place], [place] [address] Platelet mean volume (Bld) [Entitic vol] 8.6 fL Normal 6.4-10.8 [facility] Comment on above: Performed By: #### 2 678430, 6201083, 94918189, 93173674, 4811363, 22144024, 5493146, 50100620 #### [place] [facility] [address] [place] [address] Platelets (Bld) [#/Vol] 245.0 E9/L Normal 150.0-500.0 [facility] Comment on above: Performed By: #### 2 716947, 1866537, 59526142, 40332218, 7528205, 96784274, 6089388, 90326736 #### [place] [facility] [address] [place], [place] [address] RBC (Bld) [#/Vol] 5.3 E12/L Normal 4.3-5.9 [facility] Comment on above: Performed By: #### 2 542842, 5975920, 97102279, 25602713, 4079250, 81700676, 9450831, 48115408 #### [facility] [address] [place] [address] WBC corrected for nucl RBC Auto (Bld) [#/Vol] 4.9 E9/L Normal 4.0-11.0 [facility] Comment on above: Performed By: #### 2 605098, 9437152, 84323531, 56145470, 2662045, 41843308, 6019599, 58879200 #### [facility] [address] [place] [address] CHEMISTRYOrdered By: SYSTEM SYSTEM on 04-19-2022 Anion gap [Moles/Vol] 12 mmol/L Normal 6 - 16 mEq/L [facility] Calcium [Mass/Vol] 9.7 mg/dL Normal 8.9 - 11. 1 mg/dL [facility] Chloride [Moles/Vol] 99 mmol/L Low 101 - 1 11 mmol/L [facility] CO2 [Moles/Vol] 32 mmol/L High 21 - 31 mmol/L [facility] Creatinine [Mass/Vol] 0.8 mg/dL Normal 0.5 - 1.3 mg/dL [facility] CRP [Mass/Vol] 0.7 mg/dL Normal <=1.9mg/dL [facility] Remis ol GFR/1.73 sq M.predicted among blacks MDRD (S/P/Bld) [Vol rate/Area] mL/min/1.73 m2 Normal >=59mL/min/ 1.73 m2 [facility] Chem S GFR/1.73 sq M.predicted among non-blacks MDRD (S/P/Bld) [Vol rate/Area] mL/min/1.73 m2 Normal >=59mL/min/ 1.73 m2 [facility] Chem S Glucose [Mass/Vol] 92 mg/dL Normal 55 - 199 mg/dL [facility] Potassium [Moles/Vol] 4.0 mmol/L Normal 3.5 - 5.3 mmol/L [facility] Sodium [Moles/Vol] 139 mmol/L Normal 135 - 145 mmol/L [facility] Urate [Mass/Vol] 5.1 mg/dL Normal 2.2 - 7.4 mg/dL [facility] Urea nitrogen [Mass/Vol] 13 mg/dL Normal 5 - 21 mg/dL [facility] Urea nitrogen/Creatinine [Mass ratio] 16 mg/mg Normal 10 - 20 [facility] CRPon 04-19-2022 CRP [Mass/Vol] 0.7 mg/dL Normal <=1.9 [facility] Comment on above: Performed By: #### 2 789152, 7966731, 75404590, 98514374, 2231477, 39649406, 9667108, 52148815 #### [facility] [address] [place] [address] Consent for Treatmenton Consent for Treatment [id number]#1 .00CD:127 Normal [facility] HEMATOLOGYOrdered By: Una Bhatti on 04-19-2022 Erythrocyte [...] 86.5 fL Normal 80.0 - 100.0 fL [facility]eAutoSS Platelet mean volume (Bld) [Entitic vol] 8.6 fL Normal 6.4 - 10.8 fL [facility]eAutoSS Platelets (Bld) [#/Vol] 245.0 E9/L Normal 150. 0 - 500.0 E9/L [facility]eAutoSS RBC (Bld) [#/Vol] 5.3 E12/L Normal 4.3 - 5.9 E12/L [facility] Sed Rate Automated 6 mm/h Normal 0 - 19 mm/hr [facility] WBC corrected for nucl RBC Auto (Bld) [#/Vol] 4.9 E9/L Normal 4.0 - 11.0 E9/L [facility] Physician Orderon 04-19-2022 Physician Order [id number]# 1.00CD:127 Normal [facility] Sed Rate Automatedon 023 Sed Rate Automated 6 mm/hr Normal 0-19 [facility] Comment on above: Performed By: #### 2 637890, 0617892, 55946818, 64590318, 0645586, 81448057, 0829311, 36441239 #### [facility] [address] [place] [address] Uric Acidon 04-19-2022 Urate [Mass/Vol] 5.1 mg/dL Normal 2.2-7.4 [facility] Comment on above: Performed By: #### 2 070509, 4971022, 18369300, 31142985, 6047653, 75642227, 0177416, 42301134 #### [facility] Laboratory [address] [place] [address] eGFRon 04-19-2022 GFR/1.73 sq M.predicted among blacks MDRD (S/P/Bld) [Vol rate/Area] mL/min/{1.73_m2} Normal >=59 [facility] Comment on above: Order Comment: Order added by Discern Expert. Result Comment: eGFR is race adjusted. AA=. Performed By: #### 2 [id number], [id number], [id number] #### [facility] [address] [place] [address] GFR/1.73 sq M.predicted among non-blacks MDRD (S/P/Bld) [Vol rate/Area] mL/min/{1.73_m2} Normal >=59 [facility] Comment on above: Order Comment: Order added by Discern Expert. Result Comment: Senior Software Architect anni kidney disease could be indicated at eGFR's of less than 60 mL/min/1.73m2. Kidney failure is indicated at less than 15 mL/min/1.73m2. Performed By: #### 2 [id number], [id number], [id number], [id number], [id number] #### [facility] [address] [place] [address] ACETAMINOPHENon 01-28-2022 Acetaminophen [Mass/Vol] ug/mL Critically low 10.0-30.0 [facility] Comment on above: Performed By: #### E TH, SALERICKA, ACET #### [facility] [address] [place] [address] Dr. Annabella Lara CBC AUTO DIFFon 01-28-2022 BASO # 0.0 103/ul Normal 0.0-0.1 [facility] Comment on above: Performed By: #### C BC #### [facility] [address] [place] [address] Dr. Annabella Lara Basophils/100 WBC (Bld) 0.3 % Normal 0.2-2.0 [facility] Comment on above: Performed By: #### C BC #### [facility] [address] [place] [address] Dr. Annabella Lara EO # 0.1 103/ul Normal 0.0-0.7 [facility] Comment on above: Performed By: #### C BC #### [facility] [address] [place] [address] Dr. Annabella Lara Eosinophils/100 WBC (Bld) 2.0 % Normal 0.9-7.0 [facility] Comment on above: Performed By: #### C BC #### [facility] [address] [place] [address] Dr. Annabella Lara Erythrocyte distribution width (RBC) [Ratio] 12.8 % Normal 11.0-15.0 [facility] Comment on above: Performed By: #### C BC #### [facility] [address] [place] [address] Dr. Annabella aLra Hematocrit (Bld) [Volume fraction] 46.9 % Normal 42.0-54.0 [facility] Comment on above: Performed By: #### C BC #### [facility] [address] [place] [address] Dr. Annabella Lara Hemoglobin (Bld) [Mass/Vol] 16.1 g/dL Normal 14.0-18.0 [facility] Comment on above: Performed By: #### C BC #### [facility] [address] [place] [address] Dr. Annabella Lara IG # 0.01 10e3/ul Normal 0.00-0.03 [facility] Comment on above: Performed By: #### C BC #### [facility] [address] [place] [address] Dr. Annabella Lara IG % 0.1 % Normal 0.0-0.5 [facility] Comment on above: Performed By: #### C BC #### [facility] [address] [place] [address] Dr. Annabella Lara LYMPH # 1.2 103/ul Normal 1.2-3.8 [facility] Comment on above: Performed By: #### C BC #### [facility] [address] [place] [address] Dr. Annabella Lara Lymphocytes/100 WBC (Bld) 17.3 % Critically low 20.5-60.0 [facility] Comment on above: Performed By: #### C BC #### [facility] [address] [place] [address] Dr. Annabella Lara MANUAL DIFF REQ NO Normal [facility] Comment on above: Performed By: #### C BC #### [facility] [address] [place] [address] Dr. Annabella Lara MCH (RBC) [Entitic mass] 29.1 pg Normal 25.9-34.0 [facility] Comment on above: Performed By: #### C BC #### [facility] [address] [place] [address] Dr. Annabella Lara MCHC (RBC) [Mass/Vol] 34.3 g/dL Normal 29.9-35.2 [facility] Comment on above: Performed By: #### C BC #### [facility] [address] [place] [address] Dr. Annabella Lara MCV (RBC) [Entitic vol] 84.8 fL Normal 80.0-94.0 [facility] Comment on above: Performed By: #### C BC #### [facility] [address] [place] [address] Dr. Annabella Lara MONO # 0.5 103/ul Normal 0.3-0.8 [facility] Comment on above: Performed By: #### C BC #### [facility] [address] [place] [address] Dr. Annabella Lara Monocytes/100 WBC (Bld) 6.4 % Normal 1.7-12.0 [facility] Comment on above: Performed By: #### C BC #### [facility] [address] [place] [address] Dr. Annabella Lara NEUT # 5.2 103/ul Normal 1.4-6.5 [facility] Comment on above: Performed By: #### C BC #### [facility] [address] [place] [address] Dr. Annabella Lara Neutrophils/100 WBC (Bld) 73.9 % Normal 43.0-75.0 [facility] Comment on above: Performed By: #### C BC #### [facility] [address] [place] [address] Dr. Annabella Lara Platelet mean volume (Bld) [Entitic vol] 10.7 fL Normal 9.5-13.5 [facility] Comment on above: Performed By: #### C BC #### [facility] [address] [place] [address] Dr. Annabella Lara PLT 179 103/ul Normal 150-450 [facility] Comment on above: Performed By: #### C BC #### [facility] [address] [place], [place] [address] Dr. Annabella Lara RBC 5.53 106/ul Normal 4.70-6.10 [facility] Comment on above: Performed By: #### C BC #### [facility] [address] [place], [place] [address] Dr. Annabella Lara WBC 7.0 103/ul Normal 4.0-11.0 [facility] Comment on above: Performed By: #### C BC #### [facility] [address] [place], [place] [address] Dr. Annabella Lara [facility]16 SARS-CoV-2 (COVID-19) RNA KATY+probe Ql (Unsp spec) Not detected Normal NOT DETECTED [facility] Comment on above: Result Comment: When diagnostic [...] for this test is supported by the Prevocational/Rehabilitation Counselor of Health and Human Service's declaration that [...] be used). Performed By: #### C VDTBH ####[facility] [address] [place], [place] [address]UzDr. Annabella Lara DRUG SCREEN RAPID (URINE)on 01-28-2022 AMP Negative Normal NEGATIVE [facility] Comment on above: Performed By: #### D RUGRPD ####[facility] [address] [place], [place] [address]Nt. Annabella Lara BAR Negative Normal NEGATIVE [facility] Comment on above: Performed By: #### D RUGRPD ####[facility] [address] [place] [address]Dr. Annabella Lara BUP Negative Normal NEGATIVE [facility] Comment on above: Performed By: #### D RUGRPD ####[facility] [address] [place] [id number]. Ngozigenna Lara BZO Negative Normal NEGATIVE [facility] Comment on above: Performed By: #### D RUGRPD ####[facility] [address] [place] [address]Dr. Annabella Lara DEQUAN Negative Normal NEGATIVE [facility] Comment on above: Performed By: #### D RUGRPD ####[facility] [address] [place], [place] [address]Dr. Annabella Lara CUT-OFFS SEE BELOW Normal [facility] Comment on above: Result Comment: AMP (Amphetamine): 500ng/mL, BAR (Barbituates): 200 ng/mL, BZO (Benzodiazepines): 150 ng/mL, BUP (Buprenorphine): 10 ng/mL, DEQUAN (Cocaine): 150 ng/mL, mAMP (Methamphetamine): 500 ng/mL, MTD (Methadone): 200 ng/mL, OPI (Opiates): 100 ng/mL, OXY (Oxycodone): 100 ng/mL, PCP (Phencyclidine): 25 ng/mL, PPX (Propoxyphene): 300 ng/mL, THC (Cannabinoids): 50 ng/mL, TCA (Trycyclic Antidepressants): 300 ng/mL Performed By: #### D RUGRPD ####[facility] [address] [place] [id number]. Annabella Lara DRUG CUT HEADER DRUG CLASS TEST SYSTEM CUT-OFF CONCENTRATIONS ARE FOLLOWS: Normal [facility] Comment on above: Performed By: #### D RUGRPD ####[facility] [address] [place] [id number]. Annabella Lara mAMP Negative Normal NEGATIVE [facility] Comment on above: Performed By: #### D RUGRPD ####[facility] [address] [place] [id number]. Annabella Marco MTD Negative Normal NEGATIVE [facility] Comment on above: Performed By: #### D RUGRPD ####[facility] [address] [place] [id number]. Ngozigenna Lara OPI Negative Normal NEGATIVE [facility] Comment on above: Performed By: #### D RUGRPD ####[facility] [address] [place] [address]Dr. Annabella Lara OXY Negative Normal NEGATIVE [facility] Comment on above: Performed By: #### D RUGRPD ####[facility] [address] [place] [address]Dr. Annabella Lara PCP Negative Normal NEGATIVE [facility] Comment on above: Performed By: #### D RUGRPD ####[facility] [address] [place] [address]Dr. Annabella Lara PPX Negative Normal NEGATIVE [facility] Comment on above: Performed By: #### D RUGRPD ####[facility] [address] [place] [address]Dr. Annabella Lara TCA Negative Normal NEGATIVE [facility] Comment on above: Performed By: #### D RUGRPD ####[facility] [address] [place] [address]Dr. Annabella Lara THC Positive Abnormal NEGATIVE [facility] Comment on above: Performed By: #### D RUGRPD ####[facility] [address] [place] [address]Dr. Annabella Lara ETHANOL (BLD ALC)on 01-29-20 22 ALC NOTE NOTE: 80 mg/dl is th e legal limit for a blood alcohol level Normal [facility] Comment on above: Performed By: #### ANDRES ARDON ACET #### [facility] [address] [place] [address] Dr. Annabella Lara Ethanol [Mass/Vol] mg/dL Normal [facility] Comment on above: Performed By: #### ANDRES ARDON ACET #### [facility] [address] [place] [address] Dr. Annabella Lara PROF 14(COMP METB)on 022 Albumin [Mass/Vol] 4.2 g/dL Normal 3.4-5.0 [facility] Comment on above: Performed By: #### C MP #### [facility] [address] [place] [address] Dr. Annabella Lara Albumin/Globulin [Mass ratio] 1.0 {ratio} Normal [facility] Comment on above: Performed By: #### C MP #### [facility] [address] [place] [address] Dr. Annabella Lara ALP [Catalytic activity/Vol] 82 U/L Normal 46-116 [facility] Comment on above: Performed By: #### C MP #### [facility] [address] [place] [address] Dr. Annabella Lara ALT [Catalytic activity/Vol] 31 U/L Normal 16-63 [facility] Comment on above: Performed By: #### C MP #### [facility] [address] [place] [address] Dr. Annabella Lara Anion gap [Moles/Vol] 6.9 mmol/L Normal [facility] Comment on above: Performed By: #### C MP #### [facility] [address] [place] [address] Dr. Annabella Lara AST [Catalytic activity/Vol] 24 U/L Normal 15-37 [facility] Comment on above: Performed By: #### C MP #### [facility] [address] [place] [address] Dr. Annabella Lara Bilirubin [Mass/Vol] 0.2 mg/dL Normal 0.2-1.0 [facility] Comment on above: Performed By: #### C MP #### [facility] [address] [place] [address] Dr. Annabella Lara Calcium [Mass/Vol] 9.2 mg/dL Normal 8.5-10.1 [facility] [place] [facility] Comment on above: Performed By: #### C MP #### [facility] [address] [place] [address] Dr. Annabella Lara Chloride [Moles/Vol] 103 mmol/L Normal 98-107 [facility] Comment on above: Performed By: #### C MP #### [facility] [address] [place] [address] [address] Annabella Lara CO2 [Moles/Vol] 30.5 mmol/L Normal 21.0-32.0 [facility] Comment on above: Performed By: #### C MP #### [facility] [address] [place] [address] [address] Annabella Lara Creatinine [Mass/Vol] 0.80 mg/dL Normal 0.70-1.30 [facility] Comment on above: Performed By: #### C MP #### [facility] [address] [place] [address] Dr. Annabella Lara EGFR-AF GERMAN >60 Normal >=60 [facility] Comment on above: Performed By: #### C MP #### [facility] [address] [place] [address] [address] Annabella Lara EGFR-NON AF GERMAN >60 Normal >=60 [facility] Comment on above: Performed By: #### C MP #### [facility] [address] [place] [address] Dr. Annabella Lara Globulin (S) [Mass/Vol] 4.0 g/dL Normal T [facility] Comment on above: Performed By: #### C MP #### [facility] [address] [place] [address] Dr. Annabella Lara Glucose [Mass/Vol] 84 mg/dL Normal 74-106 [facility] [place] [facility] Comment on above: Performed By: #### C MP #### [facility] [address] [place] [address] [address] Annabella Lara Potassium [Moles/Vol] 4.4 mmol/L Normal 3.5-5.1 [facility] Comment on above: Performed By: #### C MP #### [facility] [address] [place] [address] Dr. Annabella Lara Protein [Mass/Vol] 8.2 g/dL Normal 6.4-8.2 [facility] Comment on above: Performed By: #### C MP #### [facility] [address] [place] [address] [address] Annabella Lara Sodium [Moles/Vol] 136 mmol/L Normal 136-145 [facility] Comment on above: Performed By: #### C MP #### [facility] [address] [place], [place] [address] Dr. Annabella Lara Urea nitrogen [Mass/Vol] 12.0 mg/dL Normal 6.4-19.3 [facility] Comment on above: Performed By: #### C MP #### [facility] [address] [place] [address] [address] Annabella Lara Urea nitrogen/Creatinine [Mass ratio] 15.0 mg/mg Normal [facility] Comment on above: Performed By: #### C MP #### [facility] [address] [place] [address] [address] Annabella Lara SALICYLATEon 01-28-2022 SALICYLATE <2.8 Normal <=19.9 [facility] Comment on above: Performed By: #### E TH, SALYC, ACET #### [facility] [address] [place] [id number] Annabella Lara Vital Signs Date Time Vital Sign Value Performing Clinician Facility 03-13-2023 07:30-0500 Body temperature 98.2 [degF] [facility] Darin Shammo Work Phone: [facility] 03-13-2023 07:30-0500 Diastolic blood pressure 73 mm[Hg] [facility] Darin Shammo Work Phone: [facility] 03-13-2023 07:30-0500 Heart rate 87 /min [facility] Darin Shammo Work Phone: [facility] 03-13-2023 07:30-0500 Respiratory rate 16 /min [facility] Darin Shammo Work Phone: [facility] 03-13-2023 07:30-0500 SaO2% (BldA) [Mass fraction] 97 % SPECIAL [employer]ENT IN CHARGE-BC Darin Shammo Work Phone: [facility] 03-13-2023 07:30-0500 Systolic blood pressure 104 mm[Hg] [employer] [facility]-BC Darin Shammo Work Phone: [facility] 03-11-2023 08:53-0500 Body weight 21.7 kg [employer]-BC Darin Shammo Work Phone: [facility] 03-10-2023 10:39-0500 Body height 172.72 cm [employer] IN CHARGE-BC Darin Shammo Work Phone: [facility] 2022 07:30-0400 Body temperature 97.4 [degF] [employer]-BC Darin Shammo Work Phone: [facility] 2022 07:30-0400 Diastolic blood pressure 85 mm[Hg] [employer] IN CHARGE-BC Darin Shammo Work Phone: [facility] 2022 07:30-0400 Heart rate 114 /min [employer] IN CHARGE-BC Darin Shammo Work Phone: [facility] 2022 07:30-0400 SaO2% (BldA) [Mass fraction] 100 % SPECIAL [employer] IN CHARGE-BC Darin Shammo Work Phone: [facility] 2022 07:30-0400 Systolic blood pressure 126 mm[Hg] [employer] IN CHARGE-BC Darin Shammo Work Phone: [facility] 10-02-2022 20:12-0400 Respiratory rate 16 /min SPECIAL [employer] IN CHARGE-BC Darin Shammo Work Phone: [facility] 10-01-2022 15:18-0400 Body height 172.72 cm [employer] IN CHARGE-BC Darin Shammo Work Phone: [facility] 10-01-2022 09:00-0400 Body weight 70.76 kg [employer] IN CHARGE-BC Darin Shammo Work Phone: [facility] 08-05-2022 15:21-0400 Diastolic blood pressure 70 mm[Hg] [employer] IN CHARGE-BC Darin Shammo Work Phone: [facility] 08-05-2022 15:21-0400 Heart rate 79 /min SPECIAL [employer] IN CHARGE-BC Darin Shammo Work Phone: [facility] 08-05-2022 15:21-0400 Respiratory rate 16 /min SPECIAL [employer] IN CHARGE-BC Darin Shammo Work Phone: [facility] 08-05-2022 15:21-0400 SaO2% (BldA) [Mass fraction] 98 % SPECIAL [employer] IN CHARGE-BC Darin Shammo Work Phone: [facility] 08-05-2022 15:21-0400 Systolic blood pressure 111 mm[Hg] SPECIAL [employer] IN CHARGE-BC Darin Shammo Work Phone: [facility] 08-05-2022 07:30-0400 Body temperature 97.6 [degF] [employer] CHARGE-BC Darin Shammo Work Phone: [facility] 08-03-2022 12:02-0400 Body height 170.18 cm SPECIAL [employer] IN CHARGE-BC Darin Shammo Work Phone: [facility] 08-03-2022 12:02-0400 Body weight 72.57 kg SPECIAL [employer] IN CHARGE-BC Darin Shammo Work Phone: [facility] 06-13-2022 07:30-0400 Body temperature 98 [degF] [employer] IN CHARGE-BC Darin Shammo Work Phone: [facility] 06-13-2022 07:30-0400 Diastolic blood pressure 68 mm[Hg] SPECIAL [employer] IN CHARGE-BC Darin Shammo Work Phone: [facility] 06-13-2022 07:30-0400 Heart rate 76 /min SPECIAL [employer] IN CHARGE-BC Darin Shammo Work Phone: [facility] 06-13-2022 07:30-0400 Respiratory rate 18 /min SPECIAL [employer] IN CHARGE-BC Darin Shammo Work Phone: [facility] 06-13-2022 07:30-0400 SaO2% (BldA) [Mass fraction] 96 % SPECIAL [employer]ENT IN CHARGE-BC Darin Shammo Work Phone: [facility] 06-13-2022 07:30-0400 Systolic blood pressure 112 mm[Hg] SPECIAL [employer] IN CHARGE-BC Darin Shammo Work Phone: [facility] 06-12-2022 20:00-0400 Body height 170.18 cm SPECIAL [employer] IN CHARGE-BC Darin Shammo Work Phone: [facility] 06-12-2022 20:00-0400 Body weight 68.94 kg SPECIAL [employer] IN CHARGE-BC Darin Shammo Work Phone: [facility] 05-22-2022 13:15-0500 Body height 170.2 cm Cherise Ramirez DMD, MD Work Phone: [facility] 05-22-2022 13:15-0500 Body mass index (BMI) [Ratio] 23.49 kg/m2 Cherise Ramirez DMD, MD Work Phone: [facility] 05-22-2022 13:15-0500 Body weight 68.04 kg Cherise Ramirez DMD, MD Work Phone: [facility] Encounters Encounter Date Encounter Type Care Provider Facility Start: 07-24-2023 End: 07-26-2023 ambulatory ONUR DAVILA Facility:[facility] Start: 07-24-2023 End: 07-26-2023 Patient encounter procedure Onuralvin Davila DDS Work Phone: [facility] Start: 07-03-2023 End: 08-17-2023 ambulatory [facility] Start: 07-03-2023 End: 07-03-2023 ambulatory [facility] Start: 05-31-2023 End: 06-03-2023 ambulatory DELONTE NICHOLAS Facility:[facility] Start: 04-17-2023 ambulatory UNKNOWN PROVIDER Facili ty:[facility] Start: 03-09-2023 End: 03-13-2023 Evaluation and management of inpatient Shubhamjaylan Ding Facility:[facility] Start: 03-09-2023 End: 03-13-2023 Evaluation and management of inpatient SPECIAL AGENT IN CHARGE-BC Darin Montoya Work Phone: [facility] Work Phone: Start: 02-22-2023 End: 02-25-2023 ambulatory UNKNOWN PROVIDER Facility:[facility] Start: 02-22-2023 End: 02-25-2023 Patient encounter procedure Onur Davila DDS Work Phone: [facility] Start: 02-06-2023 End: 02-11-2023 ambulatory UNKNOWN PROVIDER Facility:[facility] Start: 02-06-2023 End: 02-11-2023 Patient encounter procedure Onur Davila DDS Work Phone: [facility] Start: 01-21-2023 ambulatory UNKNOWN PROVIDER Facili ty:[facility] Start: 12-28-2022 Telephone encounter Alfonzo grant DDS Work Phone: [facility] Comment on above: Dental Start: 11-16-2022 End: 11-20-2022 ambulatory UNKNOWN PROVIDER Facility:[facility] Start: 11-16-2022 End: 11-20-2022 Patient encounter procedure Alfonzo Mccord DDS Work Phone: [facility] Start: 10-29-2022 End: 11-01-2022 ambulatory UNKNOWN PROVIDER Facility:[facility] Start: 10-29-2022 End: 11-01-2022 Patient encounter procedure Alfonzo Mccord DDS Work Phone: [facility] Comment on above: Poor oral hygiene (P rimary Dx) Start: 10-11-2022 End: 10-15-2022 ambulatory UNKNOWN PROVIDER Facility:[facility] Start: 10-11-2022 End: 10-15-2022 Patient encounter procedure Javed Mendez DDS Work Phone: [facility] Start: 10-08-2022 Orders Only Erum rivera DDS Work Phone: [facility] Start: 10-07-2022 Letter encounter Erum Chung cassie DDS Work Phone: [facility] Start: 09-28-2022 End: 2022 Evaluation and management of inpatient Shubham Timur Facility:[facility] Start: 09-28-2022 End: 2022 Evaluation and management of inpatient SPECIAL AGENT IN CHARGE-BC Darin Shammo Work Phone: [facility] [place] [address] Work Phone: Start: 09-28-2022 ambulatory Darin T Shammo Facility :[facility] Start: 09-27-2022 End: 10-02-2022 ambulatory UNKNOWN PROVIDER Facility:[facility] Start: 09-27-2022 End: 10-02-2022 Patient encounter procedure Alfonzo Nelsonmarinamiguel DDS Work Phone: [facility] Start: 09-05-2022 End: 09-10-2022 ambulatory UNKNOWN PROVIDER Facility:[facility] Start: 09-05-2022 End: 09-10-2022 Patient encounter procedure Erma Riley DDS Work Phone: [facility] Start: 08-23-2022 End: 08-24-2022 ambulatory UNKNOWN PROVIDER Facility:[facility] Start: 08-03-2022 End: 08-05-2022 Evaluation and management of inpatient Shubham Timur Facility:[facility] Start: 08-03-2022 Registered Recurring SPECIAL AGENT IN CHARGE-BC Jane sergey Shammo Work Phone: [facility] Start: 08-03-2022 End: 08-05-2022 Evaluation and management of inpatient SPECIAL AGENT IN CHARGE-BC Darin Shammo Work Phone: [facility] Work Phone: Start: 07-16-2022 End: 07-18-2022 Patient encounter procedure Esther Menard [place] Work Phone: [facility] Start: 07-05-2022 End: 07-05-2022 Patient encounter procedure Erum Mensahsatya DDS Work Phone: [facility] Comment on above: Arrived Start: 06-18-2022 End: 06-18-2022 Telemedicine consultation with patient Cherise Ramirez DMD, MD Work Phone: [facility] Oral Surgery Comment on above: Myofascial pain (Asya ashley Dx) Start: 06-14-2022 End: 07-11-2022 ambulatory [place] Start: 06-14-2022 End: 06-14-2022 Office outpatient new 45 minutes Erum Narda DDS Work Phone: [facility] Comment on above: Myalgia of masticati on muscle (Primary Dx); Myalgia of muscle of neck; Arthralgia of right temporomandibular joint Start: 06-12-2022 End: 06-13-2022 Evaluation and management of inpatient Darin T Shammo Facility:[facility] Start: 06-12-2022 End: 06-13-2022 Evaluation and management of inpatient SPECIAL AGENT IN CHARGE-BC Darin Shammo Work Phone: [facility] Work Phone: Start: 06-12-2022 End: 06-12-2022 ambulatory PA SUSY MCKEON . Facility: Start: 06-08-2022 Clinical Support Shantal [facility] Start: 06-08-2022 End: 06-08-2022 Follow-up encounter Cherise Ramirez DMD, MD Work Phone: [facility] Start: 06-08-2022 End: 06-08-2022 Patient encounter procedure Cherise Ramirez DMD, MD Work Phone: [facility] Comment on above: Myofascial pain (Asya ashley Dx) Start: 06-05-2022 Telephone encounter Cherise gomes DMD, MD Work Phone: [facility] Comment on above: Urgent TMJ Symptoms Start: 06-04-2022 End: 06-05-2022 ambulatory DARIN SHAMMO Facility:[facility] Start: 06-04-2022 End: 06-04-2022 ambulatory DARIN SHAMMO Facility:[facility] Start: 05-28-2022 End: 05-28-[address] JUAN MADRIGAL Facility:[facility] Start: 05-22-2022 End: 05-22-2022 Patient encounter procedure Cherise Ramirez DMD, MD Work Phone: [facility] Comment on above: Myofascial pain (Asya ashley Dx) Start: 04-19-2022 End: 04-20-2022 ambulatory Chu Muñoz Facility:[facility] Start: 04-19-2022 End: 04-19-2022 Patient encounter procedure Chu Muñoz [facility] Start: 01-28-2022 End: 01-28-2022 ambulatory PORTER HICKS Facility:[facility] Procedures Date Procedure Procedure Detail Performing Clinician Start: 05-22-2022 panoramic radiograph ic image Sam Enamorado KIM Work Phone: Plan of Treatment Date Care Activity Detail Author Start: 2052 Shingles (RZV) Vacci ne (1 of 2) Shingles (RZV) Vaccine (1 of 2) [facility] Start: 08-19-2023 End: 08-19-2023 Patient encounter procedure 08/19/2023 8:30 AM EDT Procedure Visit [facility] [address] [place] [address] Onur Kapadia, AUGUSTUS [address] [place] [address] [facility] Start: 04-17-2023 End: 04-17-2023 Patient encounter procedure 04/17/2023 1:00 PM EST Procedure Visit [facility] [address] [place] [address] Onur Kapadia DDS [address] [place] [address] [facility] Start: 03-27-2023 End: 03-27-2023 Patient encounter procedure 03/27/2023 8:30 AM EST Procedure Visit [facility] [address] [place] [address] Onur Kapadia DDS [address] [place] [address] [facility] Start: 03-25-2023 End: 03-25-2023 Patient encounter procedure 03/25/2023 11:30 AM EST Procedure Visit [facility] [address] [place] [address] Alfonzo Mccord DDS [address] [place] [address] [facility] Start: 03-13-2023 [facility] Start: 03-11-2023 Administration of prophylactic treatment [facility] Start: 03-09-2023 Referral to Seo Team Lead [facility] Start: 03-09-2023 Hospital admission [facility] Start: 02-18-2023 End: 02-18-2023 Patient encounter procedure 02/18/2023 10:30 AM EST Procedure Visit [facility] [address] [place] [address] Alfonzo Mccord DDS [address] [place] [address] [facility] Start: 02-06-2023 End: 02-06-2023 Patient encounter procedure 02/06/2023 1:00 PM EST Procedure Visit [facility] [address] [place] [address] Vaughn Barrera DDS [address] [place] [address] [facility] Start: 01-21-2023 End: 01-21-2023 Patient encounter procedure 01/21/2023 10:30 AM EST Procedure Visit [facility] [address] [place] [address] Alfonzo Mccord DDS [address] [place] [address] [facility] Start: 12-16-2022 Influenza vaccination Influenza Vacc ine (#1) [facility] Start: 11-30-2022 End: 11-30-2022 Patient encounter procedure [facility] Start: 11-16-2022 Influenza vaccination Influenza Vacc ine (#1) [facility] Start: 11-16-2022 End: 11-16-2022 Patient encounter procedure 11/16/2022 10:30 AM EDT Procedure Visit [facility] [address] [place] [address] Alfonzo Mccord DDS [address] [place] [address] [facility] Start: 10-25-2022 End: 10-25-2022 Patient encounter procedure 10/25/2022 11:00 AM EDT Procedure Visit [facility] [address] [place] [address] Alfonzo Mccord DDS [address] [place] [address] [facility] Start: 10-17-2022 End: 10-17-2022 Patient encounter procedure [facility] Start: 10-11-2022 End: 10-11-2022 Patient encounter procedure [facility] Start: 2022 [facility] Start: 09-28-2022 Administration of prophylactic treatment [facility] Start: 09-28-2022 Hospital admission [facility] Start: 09-05-2022 End: 09-05-2022 Patient encounter procedure 09/05/2022 Procedure Visit Dentistry Christian Curtis DDS [address] [place] [address] [facility] Start: 08-23-2022 End: 08-23-2022 Patient encounter procedure 08/23/2022 Procedure Visit Dentistry Christian Curtis DDS [address] [place] [address] [facility] Start: 08-05-2022 [facility] Start: 08-03-2022 Referral to Seo Team Lead [facility] Start: 08-03-2022 Hospital admission [facility] Start: 07-16-2022 End: 07-16-2022 Patient encounter procedure 07/16/2022 Procedure Visit Dentistry Erum Laboy, AUGUSTUS [address] [place] [address] [facility] Start: 07-05-2022 End: 07-05-2022 Patient encounter procedure 07/05/2022 Procedure Visit Dentistry Erum Laboy DDS [address] [place] [address] [facility] Start: 06-29-2022 End: 06-29-2022 Patient encounter procedure 06/29/2022 Procedure Visit Dentistry Erum Laboy, AUGUSTUS [address] [place] [address] [facility] Start: 06-18-2022 End: 06-18-2022 Telemedicine consultation with patient [facility] Comment on above: Arrived Start: 06-14-2022 End: 06-14-2022 Patient encounter procedure 06/14/2022 Procedure Visit Dentistry NardaErum, DDS [address] [facility] [place] [address] [facility] Start: 06-13-2022 [facility] Start: 06-12-2022 Hospital admission [facility] Start: 12-16-2021 Influenza vaccination Influenza Vacc ine (#1) [facility] Start: 2021 Hepatitis A (HAV) Vaccine (optional start 19+ years) Hepatitis A (HAV) Vaccine (optional start 19+ years) [facility] Start: 2020 Hepatitis C screening Hepatitis C An tibody [facility] Start: 2020 Tetanus + diphtheria + acellular pertussis vaccine (product) Tdap Booster [facility] Start: 2018 Meningococcal B (Bexsero,OMV) Vaccine (Optional,16-23 years) Meningococcal B (Bexsero,OMV) Vaccine (Optional,16-23 years) [facility] Start: 2018 Meningococcal B (Bexsero,OMV) Vaccine (Optional,16-23 years) (#1) Meningococcal B (Bexsero,OMV) Vaccine (Optional,16-23 years) (#1) [facility] Start: 2017 HIV screening HIV Test [facility] Start: 2013 Vaccination for jose rafael n papillomavirus [facility] Start: 2008 Pneumococcal vaccination [facility] Start: 04-05-2003 COVID-19 Vaccine (#1) COVID-19 Vacci ne (#1) [facility] Start: 2002 Hepatitis B vaccination Hepati tis B (HBV) Vaccine (1 of 3 - 3-dose series) [facility] Patient Education Depression, Ad ult (DC) [facility] DC Instructions [facility] Work Phone: Patient referral [facility] Work Phone: Payers Date Payer Category Payer Self-pay [id number] 2021 Unknown [id number] 2002 Unknown [id number] 2.16.8 40.1.732201.3.579.2.727 2002 Unknown [id number] 2.16.84 0.1.815436.3.579.2.593 2002 Unknown [id number] 2.16.84 0.1.970109.3.579.2.593 2002 Unknown [id number] 2.16.84 0.1.490699.3.579.2.593 2002 Unknown [id number] 2.16.84 0.1.259584.3.579.2.593 2002 Unknown [id number] 2.16.84 0.1.380416.3.579.2.593 2002 Unknown [id number] 2.16. 840.1.676663.3.579.2.732 2002 Unknown [id number] 2.16. 840.1.755368.3.579.2.732 2002 Unknown [id number] 2.16. 840.1.562569.3.579.2.732 2002 Unknown [id number] 2.16. 840.1.376733.3.579.2.732 2002 Unknown [id number] 2.16. 840.1.500070.3.579.2.732 2002 Unknown [id number] 2.16. 840.1.967956.3.579.2.732 2002 Unknown [id number] 2.16. 840.1.568723.3.579.2.732 2002 Unknown [id number] 2.16. 840.1.698217.3.579.2.732 2002 Unknown [id number] 2.16. 840.1.580835.3.579.2.732 2002 Unknown [id number] 2.16. 840.1.125650.3.579.2.732 2002 Unknown [id number] 2.16. 840.1.216537.3.579.2.732 2002 Unknown [id number] 2.16. 840.1.465814.3.579.2.732 2002 Unknown [id number] 2.16.8 40.1.708599.3.579.2.1286 2002 Unknown [id number] 2.16.8 40.1.839076.3.579.2.1285 2002 Unknown [id number] 2.16.8 40.1.044546.3.579.2.1286 1959 Unknown [id number] Unknown [id number] 2.16.8 40.1.749641.3.579.2.531 Unknown [id number] 2.16.8 40.1.291959.3.579.2.531 Unknown [id number] 2.16.8 40.1.707538.3.579.2.531 Unknown [id number] 2.16.8 40.1.192974.3.579.2.531 Unknown [id number] 2.16.8 40.1.174496.3.579.2.531 Social History Date Type Detail Facility Tobacco smoking status [facility] Start: 05-22-2022 Sex Assigned At Male F [facility] Start: 05-22-2022 Tobacco smoking status NHIS [...] smoking status NHIS Never smoked tobacco (finding) [facility] Start: 2002 Sex Assigned At Male F [facility] Start: 05-22-2022 History of Social function [facility] Goals Date Patient Goal Desired Activity /State Functional Status Date Assessment Result Facility 03-13-2023 Functional status Patient at Baseline [facility] Work Phone: 2022 Functional status Patient at [facility] Work Phone: 08-05-2022 Functional status Patient at Baseline [facility] Work Phone: 06-13-2022 Functional status Patient at Baseline [facility] Work Phone: Mental Status Date Assessment Result Facility 03-13-2023 Cognitive function Cognitive Sta tus Patient at Baseline [facility] Work Phone: 2022 Cognitive function Cognitive Sta tus Patient at Baseline [facility] Work Phone: 08-05-2022 Cognitive function Cognitive Sta tus Patient at [facility] Work Phone: 06-13-2022 Cognitive function Cognitive Sta tus Patient at [facility] Work Phone: Clinical Notes 04-19-2022 to 07-24-2023 Onur Kapadia DDS - 07/24/2023 1:08 PM EDT Note Date & Type Note Facility 07-24-2023 History of Presen t illness Narrative ----- Monday, July 24, 2023 at 4:26:32 PM ----- ----- Provider: [id number] - Resident Nithya -- Clinic: [place] ----- COMPOSITE CHURCH Patient is scheduled for Rastafari on tooth #10-DL and 11-MDL. Reviewed Medical History. Pt exhibited the following conditions: No significant medical history Patient is ready for treatment. Topical Benzocaine gel applied at the injection site for 2 minutes. Administered 1 carpules of Lidocaine, 2% with Epinephrine 1:100,000,. Isolation achieved. Decay/existing scientology removed, cavity prepared. Selectively etched enamel with 37% phosphoric acid, rinsed, and blot dried. OptiBond delaney applied and light-cured. Condensed packable composite shade a3 in light cured increments using Mylar strip and wedge. Finished with finishing burs, checked occlusion, verified proximal contacts and scientology was polished. Rinsed and suctioned intraorally, advised patient to not eat until local anesthesia wears off. POST OPERATIVE Periapical (single) RADIOGRAPH TAKEN. NOTE: In the post op x ray I saw that mesial scientology on # 10 was fractured. It has to be replace in his next appointment Next Visit: Restorative ----- Signed on July at 8:19:57 AM ----- ----- Provider: Michael Troncoso DDS -- Clinic: [place] ----- documented in this encounter [facility] 03-13-2023 Discharge summary Note Date/Time March 13, 2023 11:44am [facility] [address] [place] [address] Discharge Summary Signed Patient: Betty Rosenberg MR#: [id number] : 2000 Acct:[id number] Age/Sex: 22 / M Adm Date: 3 Loc: Room: [address] [place] [address]: Shubham Ding MD Copies to: MD Darin Posada, [facility]~ Providers Date of Discharge: 03/13/23 Discharging Provider: [...] Living: With family 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 He tolerated [...] Instructions: Important Contact Information You can call [facility] at [phone] any time day or night if you have emergent questions or question regarding discharge instructions. If at any time you are feeling an increase inyour psychiatric symptoms, call your physician or behavioral healthcare provider. If any time you have thoughts of harming yourself or others contact one of the following: Call 98-8 (available 08/10) Crisis Text Line (available 08/10) text 4HOPE to [phone] [facility] Hope Line (available 8 a.m. Midnight) call [phone] ([phone]) Regular Diet No Activity Restrictions Instructions: Depression, Adult (DC), [facility] DC Instructions Prescriptions: New bupropion HCl 150 mg Tablet Extended Release 24 Hr 150 mg PO QAM 30 Days Qty: 30 0RF Follow Up: [facility] [Other] - 03/19/23 12:45 pm (Psychiatry: Saturday03/19/23 at 12:45pm with REG Araya in [place] office. ) [facility] [Other] - 04/23/23 10:15 am (Counseling: Saturday04/23/23 at 10:15am with Angela Umaña in the [place] office. ) Darin Montoya, SPECIAL AGENT IN CHARGE-BC [Primary Care Provider] - (Please contact for any medical needs or concerns.) Documented By: Shubham Ding MD 03/13/23 1142 Signed By: <Electronically signed by Shubham Ding MD> 03/13/23 1144 [facility] Work Phone: 1(681) 351-835812-27-2023 Hospital Discharge instructions Additional Instructions Important Contact Information You can call [facility] at [phone] any time day or night if you have emergent questions or question regarding discharge instructions. If at any time you are feeling an increase in your psychiatric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 Specialty Start Date End Date Erum Laboy DDS [address] [place] [address]87 Fellow Dentistry 06/16/22 Cherise Ramirez DMD, MD [address] [place] [address] Physician Oral & Maxillofacial Surgery 06/16/22 Prison Officer Relationship Specialty Start Date End Date Erum Laboy DDS [address] [place] [address]014 Fellow Dentistry 06/16/22 Cherise Ramirez DMD, MD [address] [place] [address] 13079 Physician Oral & Maxillofacial Surgery 06/16/22 Prison Officer Relationship Specialty Start Date End Date Erum Laboy DDS [address] [place] [address] 30556 Fellow Dentistry 06/16/22 Cherise Ramirez DMD, MD [address] [place] [address]253 Physician Oral & Maxillofacial Surgery 06/16/22 Prison Officer Relationship Specialty Start Date End Date Erum Laboy DDS [address] [place] [address]34 Fellow Dentistry 06/16/22 Cherise Ramirez DMD, MD [address] [place] [address]370 Physician Oral & Maxillofacial Surgery 06/16/22 Team Status: Inactive Member Role Status Dates Darinomero Montoya , SPECIAL AGENT IN CHARGE-BC Primary Care Provider Active Christiano Phelps DO Emergency Provider Active Shubham iDng MD Admit Provider, Attending Provider Active Team Status: Inactive Member Role Status Dates Darin Franks Shamjosh , SPECIAL AGENT IN CHARGE-BC Primary Care Provider Active Shubham Ding MD Admit Provider, Attending Provider Active Team Status: Active Member Role Status Dates Darinomero Montoya , SPECIAL AGENT IN CHARGE- Primary Care Provider Active Tana Ca MD Attending Provider Active Prison Officer Relationship Specialty Start Date End Date GarryErum alvarez DD [address] [place] [address]19 Fellow Dentistry 06/16/22 Cherise Ramirez DMD, MD [address] [place] [address]2843 Physician Oral & Maxillofacial Surgery 06/16/22 Prison Officer Relationship Specialty Start Date End Date GarryErum alvarez S [address] [place] [address] 18292 Fellow Dentistry 06/16/22 Cherise Ramirez DMD, MD [address] [place] [address]335 Physician Oral & Maxillofacial Surgery 06/16/22 Prison Officer Relationship Specialty Start Date End Date Erum Laboy DDS [address] [place] [address] 05824 Fellow Dentistry 06/16/22 Cherise Ramirez DMD, MD [address] [place] [address] 79433 Physician Oral & Maxillofacial Surgery 06/16/22 Alfonzo Mccord DDS [address] [place] [address] 68115 Fellow Dentistry 10/20/22 Prison Officer Relationship Specialty Start Date End Date Erum Laboy [address] [address] Fellow Dentistry 06/16/22 Cherise Ramirez DMD, MD [address] [place] [address] 35820 Physician Oral & Maxillofacial Surgery 06/16/22 Alfonzo Mccord DDS [address] [place] [address] 27024 Fellow Dentistry 10/20/22 Prison Officer Relationship Specialty Start Date End Date Erum LaboyPRESTON[address] [address] Fellow Dentistry 06/16/22 Cherise Ramirez DMD, MD [address] [place] [address] 28437 Physician Oral & Maxillofacial Surgery 06/16/22 Alfonzo Mccord DDS [address] [place] [address] 39520 Fellow Dentistry 10/20/22 Prison Officer Relationship Specialty Start Date End Date Erum Laboy [address] [address] Fellow Dentistry 06/16/22 Cherise Ramirez DMD, MD [address] [place], [place] [phone] Physician Oral & Maxillofacial Surgery 06/16/22 Alfonzo Mccord DDS [address] [place] [address] Fellow Dentistry 10/20/22 (unrecognized sect ion and content) No Status Records FoundNo Status Records FoundNo Status Records FoundNo Status Records FoundNo Status Records Found INFORMATION SOURCE (unrecogn ized section and content) DATE CREATED AUTHOR [facility]/23/2022 [facility] DATE CREATED AUTHOR AUTHOR'S ORGANIZ ATION 06/15/2022 [facility] DATE CREATED AUTHOR AUTHOR'S ORGANIZ ATION 07/21/2022 [employer] DATE CREATED AUTHOR AUTHOR'S ORGANIZ ATION 04/08/2023 [facility] DATE CREATED AUTHOR AUTHOR'S ORGANIZ ATION 07/31/2023 [employer] DATE CREATED AUTHOR AUTHOR'S ORGANIZ ATION 08/18/2023 [facility] Reason for Visit (unrecogniz ed section and content) Specialty Diagnoses / Procedures [facility] Referred To Contact Oral Surgery Diagnoses Dental caries Vi Samuel DDS [address] [place] [address] [facility] ORAL SURGERY [address] [place], [place] [phone] Referral ID Status Reason Start Date Expiration Date V isits Requested Visits Authorized [id number] Authorized 04/12/2022 04/12/2023 3 3 Reason Onset [...] BE BASED ON THE PRIMARY CLINICAL RECORDS. [facility]. provides no warranty or guarantee of the accuracy or completeness of information in this document.
== END 2023-10-30 12:55 | disposition home or self-care (01) ==
LOC: RAD 12:57
PROVIDERS: PCP Nurse Practitioner Family; Visit Provider Nurse Practitioner Family
DX: M25.511 Pain in right shoulder (principal); M25.561 Pain in right knee
CPT/HCPCS: 73030; 73560

== ENCOUNTER 2023-12-16 20:11 | Emergency (ER) | payer OTHER, SELFPAY ==
--- OUTSIDE RECORDS SUMMARY | 2023-12-16 20:18 | XMS_ITS | CCD ---
Author Organization [facility] Care Team Providers Care Sales Manager Name Role Phone Juan Madrigal Primary Care Physician Chu Muñoz Attending Unavailable Chu Muñoz Admitting Unavailable Unavailable Primary Care Provider Unavailabl brandon MCKEON ., JOSÉ MANUEL JAIN Consulting Unavailabl [...] Attending Unavailable SHAMMO, DARIN Consulting Unavailable Vasilyeva AUGUSTUS, Erum Unavailable [phone] Ashley ALVAREZ MD, Cherise Unavailable Shammo, [facility] Darin T Primary Care Provider MD Tana Ca Admit Provider MD Tana Ca Attending Provider [facility] T Primary Care Provider [phone] DO Christiano Phelsp Emergency Provider MD Mariana Dingmi Admit Provider MD Mariana Dingmi Attending Provider MD Tana Ca Attending Provider [phone] Narda DDS, Erum Unavailable [phone] Suri DDS, Parveez Unavailable Shammo, [facility] Darin T Primary Care Provider [phone] MD Radha Dingyemi Admit Provider [phone] MD Shubham Ding Attending Provider [phone] Shubham Ding Admitting Unavailable Shammo, Darin T Primary Care Unavailable Brandon Ca Attending Unavailab le Shammo, Darin T Primary Care Unavailable Brandon Ca Attending Unavailab le LannyTesfayeBrandon Admitting Unavailab le Shammo, Darin T Primary Care Unavailable Brandon Ca Attending Unavailab le LannyAiBrandon Admitting Unavailab le Timur, Shubham Attending Unavailable Timur, Shubham Admitting Unavailable Shammo, Darin T Primary Care Unavailable Shubham Ding Attending Unavailable Timur, Shubham Admitting Unavailable Shammo, Darin T Primary Care Unavailable Ashley ALVAREZ MD, Cherise Unavailable [phone] ELLEN JOSHUA Attending Unavailable SHAMMO, DARIN Referring Unavailable SHAMMO, DARIN Primary Care Unavailable ELLEN JOSHUA Referring Unavailable SHAMMO, DARIN Primary Care Unavailable VERHOELLEN MCCARTNEY Referring Unavailable SHAMMO, DARIN Primary Care Unavailable PROVIDER, UNKNOWN Admitting Unavailable PROVIDER, UNKNOWN Attending Unavailable PROVIDER, UNKNOWN Admitting Unavailable PROVIDER, UNKNOWN Attending Unavailable PROVIDER, UNKNOWN Admitting Unavailable DELONTE ABEL Attending Unavailab le PROVIDER, UNKNOWN Admitting Unavailable ONUR KAPADIA Attending Unavaila ble PROVIDER, UNKNOWN Admitting Unavailable ERIC WOODRUFF Attending Unavaila ble PROVIDER, UNKNOWN Admitting Unavailable PROVIDER, UNKNOWN Attending Unavailable PROVIDER, UNKNOWN Admitting Unavailable JOSE LEVI Attending Unavailable PROVIDER, UNKNOWN Admitting Unavailable PROVIDER, UNKNOWN Attending Unavailable JESUS STEINER Attending Unavailable JUSTUS SUTTON Attending Unavailable MARYELLEN YANG Attending Unavailable JUSTUS SUTTON Referring Unavailable ARTI WOODRUFF Attending Unavailable JUSTUS SUTTON Referring Unavailable ARTI WOODRUFF Attending Unavailable JUSTUS SUTTON Referring Unavailable Medications Current Medications Medication Drug Class(es) [...] Discontinued 50 MG PO Daily at bedtime 30 May 28, 2021 12:00am January 28, 2022 [...] 50 MG PO Daily at bedtime 15 15 October 02, 2022 11:00pm March 09, [...] sources) Anorexia; Translations: [ANOREXIA] Onset: 01-28-2022 Episodic Suicide and intentional self-inflicted injury (8 sources) Suicidal ideations; Translations: [Suicidal thoughts] Onset: 06-12-2022 Episodic Results Test Name Value Interpretation Reference Range Facility Progress Noteson 11-22-2023 Budget Consultant Authentication Interface Message Text Normal [facility] Budget Consultant Authentication Interface Message Text ----- Wednesday, November 22, 2023 at 1:34:35 PM ----- ----- Provider: [id number] Romero Resident -- Clinic[place] ----- LIMITED EXAM Patient presents for Emergency appointment with a CC of fracture of the mesial yazidism tooth # 10 area of their mouth. Reviewed patient's medical history. Patient has a history of: No significant medical history. N/C per pt. No contraindications, patient is ready for treatment. Clinical exam was completed. Clinical Exam Finding(s): Broken tooth tooth # 10 Radiographs taken today were: 1 PA Radiographic Findings: Extensive decay Discussed the medical necessity of the problem with the patient. Patient consented to treatment today. COMPOSITE BUDDHIST Patient is scheduled for Hindu on tooth #10 surface MLF. Reviewed Medical History. Pt exhibited the following conditions: No significant medical history Patient is ready for treatment. Topical Benzocaine gel applied at the injection site for 2 minutes. Administered 1 carpules of . cotton roll isolation achieved. Decay/existing yazidism removed, cavity prepared. Selectively etched enamel with 37% phosphoric acid, rinsed, and blot dried. Xeno IV delaney applied and light-cured. Condensed packable composite shade A2 in light cured increments using Mylar strip and wedge. Finished with finishing burs, checked occlusion, verified proximal contacts and yazidism was polished. Rinsed and suctioned intraorally, advised patient to not eat until local anesthesia wears off. POST OPERATIVE Periapical (single) RADIOGRAPH TAKEN. Next Visit: Extraction (single) ----- Signed on Wednesday, November 22, 2023 at 1:53:10 PM ----- ----- Provider: [id number] Martin Troncoso DDS -- Clinic: [place] ----- Normal [facility] Progress Noteson 07-24-2023 Budget Consultant Authentication Interface Message Text ----- Monday, July 24, 2023 at 4:26:32 PM ----- ----- Provider: [id number] - Resident Nithya -- Clinic[place] ----- COMPOSITE BUDDHIST Patient is scheduled for Hindu on tooth #10-DL and 11-MDL. Reviewed Medical History. Pt exhibited the following conditions: No significant medical history Patient is ready for treatment. Topical Benzocaine gel applied at the injection site for 2 minutes. Administered 1 carpules of Lidocaine, 2% with Epinephrine 1:100,000,. Isolation achieved. Decay/existing yazidism removed, cavity prepared. Selectively etched enamel with 37% phosphoric acid, rinsed, and blot dried. OptiBond delaney applied and light-cured. Condensed packable composite shade a3 in light cured increments using Mylar strip and wedge. Finished with finishing burs, checked occlusion, verified proximal contacts and yazidism was polished. Rinsed and suctioned intraorally, advised patient to not eat until local anesthesia wears off. POST OPERATIVE Periapical (single) RADIOGRAPH TAKEN. 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 It has to be replace in his next appointment Next Visit: Restorative ----- Signed on July at 8:19:57 AM ----- ----- Provider: [id number] Martin Troncoso DDS -- Clinic: [place] ----- Normal [facility] XR SPINE CERVICAL 4 OR 5 [...] Chu Adkins on 07/05/2023 4:09 PM Normal [facility] Progress Noteson 05-31-2023 Budget Consultant Authentication Interface Message Text [facility], pt is ready for tx. [...] [place]: RESTOTooth: 6 Surface: DL Normal [facility] Budget Consultant Authentication Interface Message Text ----- Wednesday, May 31, 2023 at 1:45:00 PM ----- ----- Provider: [id number] Resident Chris -- Clinic[place] ----- COMPOSITE BUDDHIST Patient is scheduled for Hindu on tooth #6 surface DL. Reviewed Medical History. Pt exhibited the following conditions: No significant medical history Patient is ready for treatment. Topical Benzocaine gel applied at the injection site for 2 minutes. Administered 1 carpules of Lidocaine, 2% with Epinephrine 1:100,000,. Decay/existing yazidism removed, cavity prepared. Selectively etched enamel with 37% phosphoric acid, rinsed, and blot dried. Xeno IV delaney applied and light-cured. Condensed packable composite shade A2 in light cured increments using Toffelmaire matrix band retainer and wedge. Finished with finishing burs, checked occlusion, verified proximal contacts and yazidism was polished. Rinsed and suctioned intraorally, advised patient to not eat until local anesthesia wears off. POST OPERATIVE Periapical (single) RADIOGRAPH TAKEN. Next Visit: Restorative ----- Signed on Friday, June 02, 2023 at 9:01:27 AM ----- ----- Provider: [id number] Tessa Cruz DMD -- Clinic[place] ----- Normal [facility] Progress Noteson 03-25-2023 Budget Consultant Authentication Interface Message Text ----- Saturday, March 25, 2023 at 8:30:40 AM ----- ----- Provider: [id number] Mccord, Fellow -- Clinic: [place] ----- Patient messaged (EPIC) me at 8:20 [...] muscle. He also inquired last month on EPIC for a provider closer to him for [...] - local anesthetic or steroid. Normal [facility] Cholesterol [Mass/volume] in Serum or PlasmaOrdered By: Shubham Ding on 03-10-2023 Cholesterol [Mass/Vol] 117 mg/dL 140-200 [facility] Comment on above: Chol less than 200 m g/dl low riskChol 201-239 mg/dl borderline riskChol 240 mg/dl and greater high risk Cholesterol in LDL Calc [Mas s/Vol]Ordered By: Shubham Ding on 03-10-2023 Cholesterol in LDL [Mass/Vol] 64 mg/dL 0-100 [facility] Comment on above: LDL ATP III CLASSIFI CATIONLDL less than 100 mg/dL OptimalLDL 100-129 mg/dL Near or above optimalLDL 130-159 mg/dL Borderline highLDL 160-189 mg/dL HighLDL greater than 189 mg/dL Very high Cholesterol in VLDL Calc [Ma ss/Vol]Ordered By: Shubham Ding on 03-10-2023 Cholesterol in VLDL [Mass/Vol] 8 mg/dL [facility] Lipid Panelon 03-10-2023 Cholesterol [Mass/Vol] 117 mg/dL Low 140-200 [facility] Comment on above: Result Comment: Chol less than 200 mg/dl low risk Chol 201-239 mg/dl borderline risk Chol 240 mg/dl and greater high risk Performed By: #### C MP, CBC, ETOH #### [facility] [address] Cholesterol in HDL [Mass/Vol] 45 mg/dL Normal 23-92 [facility] Comment on above: Result Comment: HDL CHOL ATP-III CLASSIFICATION Cardiovascular Risk HDL > or equal to 60 mg/dL LOW HDL < 40 mg/dL HIGH Performed By: #### C MP, CBC, ETOH #### [facility] [address] Cholesterol.total/Abi sterol in HDL [Mass ratio] 2.6 {ratio} Normal <5.0 [facility] Comment on above: Performed By: #### C MP, CBC, ETOH #### [facility] [address] LDL Cholesterol,Calculated 64 mg/dL Normal 0-100 [facility] Comment on above: Result Comment: LDL ATP III CLASSIFICATION LDL less than 100 mg/dL Optimal LDL 100-129 mg/dL Near or above optimal LDL 130-159 mg/dL Borderline high LDL 160-189 mg/dL High LDL greater than 189 mg/dL Very high Performed By: #### C MP, CBC, ETOH #### [facility] [address] [place] [address] [place] Triglyceride w/Reflex 42 mg/dL Normal 0-149 [facility] Comment on above: Result Comment: TRIG ATP III CLASSIFICATION TRIG less than 150 mg/dL Normal TRIG 150-199 mg/dL Borderline high TRIG 200-500 mg/dL High TRIG greater than 500 mg/dL Very high Standard traceable to the Center for Disease Conrtrol and Prevention (CDC) test method. Performed By: #### C MP, CBC, ETOH #### [facility] [address] VLDL CHOLESTEROL 8 mg/dL Normal [facility] Comment on above: Performed By: #### C MP, CBC, ETOH #### [facility] [address] Serum or plasma high density lipoprotein (HDL) cholesterol measurementOrdered By: Shubham Ding on 03-10-2023 Cholesterol in HDL [Mass/Vol] 45 mg/dL [facility] Comment on above: HDL CHOL ATP-III CLA SSIFICATION Cardiovascular RiskHDL > or equal to 60 mg/dL LOWHDL < 40 mg/dL HIGH Serum or plasma total choles terol/high density lipoprotein (HDL) cholesterol mass ratOrdered By: Shubham Ding on 03-10-2023 Cholesterol.total/Abi sterol in HDL [Mass ratio] 2.6 {ratio} <5.0 [facility] Thyroid Stim Hormone w/Rflxo n 03-10-2023 Thyroid Stim Hormone w/Rflx 0.83 u[iU]/mL Normal 0.45-5.33 [facility] Comment on above: Performed By: #### C MP, CBC, ETOH #### [facility] [address] Thyrotropin [Units/volume] i n Serum or PlasmaOrdered By: Shubham Ding on 03-10-2023 TSH Qn 0.83 m[IU]/L 0.45-5.33 [facility] Triglyceride [Mass/volume] i n Serum or PlasmaOrdered By: Shubham Ding on 03-10-2023 Triglyceride [Mass/Vol] 42 mg/dL 0-149 [facility] Comment on above: TRIG ATP III CLASSIF ICATIONTRIG less than 150 mg/dL NormalTRIG 150-199 mg/dL Borderline highTRIG 200-500 mg/dL High TRIG greater than 500 mg/dL Very highStandard traceable to the Center for Disease Conrtrol and Prevention (CDC) test method. Vitamin D 25 Hydroxy Totalon 03-10-2023 Vitamin D 25 Hydroxy Total 44.6 ng/mL Normal 30-100 [facility] Comment on above: Result Comment: GREY MIN D STATUS 25(OH)VITAMIN D RANGE (ng/mL) Deficient <20 Insufficient 20 to <30 Sufficient 30 to 100 Reference: Richy MF,Al NC, Yvonne BUCHANAN et al. Evaluation,treatment, and prevention of vitamin D deficiency; an Endocrine Society clinical practice guideline. JCEM. 2010; 96(7):1911-30. PERFORMED BY: [place] [address] PATHOLOGIST [employer] OPERATOR HANNY WEAVER M.D. Performed By: #### C MP, CBC, ETOH #### [address] Vitamin D+Metabolites [Mass/ volume] in Serum or PlasmaOrdered By: Shubham Ding on 03-10-2023 Vitamin D+Metabolites [Mass/Vol] 44.6 ng/mL 30-100 [facility] Comment on above: VITAMIN D STATUS 25( OH)VITAMIN D RANGE (ng/mL) Deficient <20 Insufficient 20 to <30Sufficient 30 to 100Reference: Richy MF,Al LUTZ, Yvonne BUCHANAN, et al. Evaluation,treatment, and prevention of vitamin D deficiency; an Endocrine Society clinical practice guideline. JCEM. 2010; 96(7):1911-30. ECG 12 lead ECGon 03-09-2023 ECG 12 lead ECG [facility] [place] [address] [place] [address] Electrocardiograph Report Signed Patient: Betty Rosenberg MR#: [id number] 140 : 2000 Acct:[id number] Age/Sex: 22 / M ADM Date: 03/09/23 Loc: Room: [address] [place] [address] Type: ADM IN Attending Dr: Shubham Ding [...] change was found Confirmed by [facility] ([id number]) on 03/10/2023 11:46:30 AM Referred By: Electronically Signed By:HAJA ROY MD, FACC Transcribed By: MUS Signed By Aiden Roy MD 03/10/23 1146 [facility] Progress Noteson 02-22-2023 Budget Consultant Authentication Interface Message Text ----- Wednesday, February 22, 2023 at 11:57:25 AM ----- ----- Provider: [id number] - Resident Allan -- Clinic: [place] ----- COMPOSITE BUDDHIST Patient is scheduled for Hindu on tooth #20 MOD and 21 [id number] . Reviewed Medical History. Pt exhibited the following conditions: No significant medical history Patient is ready for treatment. Topical Benzocaine gel applied at the injection site for 2 minutes. Administered 1 carpules of Lidocaine, 2% with Epinephrine 1:100,000,. Isolation achieved. Decay/existing yazidism removed, cavity prepared. Selectively etched enamel with 37% phosphoric acid, rinsed, and blot dried. OptiBond delaney applied and light-cured. Condensed packable composite shade a3 in light cured increments using Toffelmaire matrix band retainer and wedge. Finished with finishing burs, checked occlusion, verified proximal contacts and yazidism was polished. Rinsed and suctioned intraorally, advised patient to not eat until local anesthesia wears off. POST OPERATIVE Periapical (single) RADIOGRAPH TAKEN. NOTE: Next Visit: Restorative ----- Signed on Saturday, February 25, 2023 at 5:04:28 AM ----- ----- Provider: [id number] - Ruel Cruz DMD -- Clinic: [place] ----- Normal [facility] Progress Noteson 02-06-2023 Budget Consultant Authentication Interface Message Text ----- Monday, February 06, 2023 at 2:01:57 PM ----- ----- Provider: [id number] Resident Michael -- Clinic: [place] ----- COMPOSITE BUDDHIST Patient is scheduled for Hindu on tooth #4 and 5 surface B5. Reviewed Medical History. Pt exhibited the following conditions: No significant medical history Patient is ready for treatment. Topical Benzocaine gel applied at the injection site for 2 minutes. Administered 1 carpules of Articaine, 4% with Epinephrine 1:100,000,. Isolation achieved. Decay/existing yazidism removed, cavity prepared. Selectively etched enamel with 37% phosphoric acid, rinsed, and blot dried. OptiBond delaney applied and light-cured. Condensed packable composite shade a2 in light cured increments using Mylar strip and wedge. Finished with finishing burs, checked occlusion, verified proximal contacts and yazidism was polished. Rinsed and suctioned intraorally, advised patient to not eat until local anesthesia wears off. POST OPERATIVE RADIOGRAPH TAKEN. Next Visit: Restorative ----- Signed on Monday, February 06, 2023 at 2:08:28 PM ----- ----- Provider: [id number] - Christian Troncoso DDS -- Clinic: [place] ----- Normal [facility] Progress Noteson 01-21-2023 Budget Consultant Authentication Interface Message Text ----- Saturday, January 21, 2023 at 10:37:19 AM ----- ----- Provider: [id number] Candy Monahan -- Clinic: [place] ----- Patient returned for trigger point injections cycle 1 # 4 Patient missed last appointment for TPI and yazidism with adjustment of espana. Referring physician: Cherise Ramirez MD DMD Reiterated the importance of maintaining regular appointments for TPI, pursuing PT and regular care with [facility] for restorative work. Reports good pain relief [...] TPI cycle 1 #5 Advised to bring JOVI at next restorative visit so we can try to adjust fillings so that JOVI fits ( filling #[phone] ) Teaching Attending [...] 2023 at 6:19:19 AM ----- ----- Provider: Manuel Cruz DMD -- Clinic: [place] ----- Normal [facility] Telephone Encounteron 2022 Budget Consultant Authentication Interface Message Text Situation: UPDATE Background: Pt would like Provider Suri to msg him on [facility]. Pt states he is unable to msg provider because their msgs have . Pt would like to stay in contact with provider via [facility] in order to schedule his trigger point appts. Pt does not want to call in to be scheduled. Pt last seen 11/16/22 w [facility] Assessment: n/a Recommendation: JUSTINI Thank you :) Msg sent to Suri @ [facility] on 12/28/22 Normal [facility] Cholesterol [Mass/volume] in Serum or PlasmaOrdered By: Shubham Ding on 09-29-2022 Cholesterol [Mass/Vol] 147 mg/dL 140-200 [facility] Comment on above: Chol less than 200 m g/dl low riskChol 201-239 mg/dl borderline riskChol 240 mg/dl and greater high risk Cholesterol in LDL Calc [Mas s/Vol]Ordered By: Shubham Ding on 09-29-2022 Cholesterol in LDL [Mass/Vol] 86 mg/dL 0-100 [facility] Comment on above: LDL ATP III CLASSIFI CATIONLDL less than 100 mg/dL OptimalLDL 100-129 mg/dL Near or above optimalLDL 130-159 mg/dL Borderline highLDL 160-189 mg/dL HighLDL greater than 189 mg/dL Very high Cholesterol in VLDL Calc [Ma ss/Vol]Ordered By: Shubham Ding on 09-29-2022 Cholesterol in VLDL [Mass/Vol] 12 mg/dL [facility] ECG 12 lead ECGon 09-29-2022 ECG 12 lead ECG [facility] [place] [address] [place] [address] Electrocardiograph Report Signed Patient: Betty Rosenberg MR#: [id number] 140 : 2000 Acct:[id number] Age/Sex: 21 / M ADM Date: 09/28/22 Loc: Room: [address] [place] [address] Type: ADM IN Attending Dr: Shubham Ding [...] Princess Smalls MD 0 09/29/22 1027 Normal [facility] Lipid Panelon 09-29-2022 Cholesterol [Mass/Vol] 147 mg/dL Normal 140-200 [facility] Comment on above: Result Comment: Chol less than 200 mg/dl low risk Chol 201-239 mg/dl borderline risk Chol 240 mg/dl and greater high risk Performed By: #### C MP, CBC, ETOH #### [facility] [address] Cholesterol in HDL [Mass/Vol] 49 mg/dL Normal 23-92 [facility] Comment on above: Result Comment: HDL CHOL ATP-III CLASSIFICATION Cardiovascular Risk HDL > or equal to 60 mg/dL LOW HDL < 40 mg/dL HIGH Performed By: #### C MP, CBC, ETOH #### [facility] [address] Cholesterol.total/Abi sterol in HDL [Mass ratio] 3.0 {ratio} Normal <5.0 [facility] Comment on above: Performed By: #### C MP, CBC, ETOH #### [facility] [address] LDL Cholesterol,Calculated 86 mg/dL Normal 0-100 [facility] Comment on above: Result Comment: LDL ATP III CLASSIFICATION LDL less than 100 mg/dL Optimal LDL 100-129 mg/dL Near or above optimal LDL 130-159 mg/dL Borderline high LDL 160-189 mg/dL High LDL greater than 189 mg/dL Very high Performed By: #### C MP, CBC, ETOH #### [facility] [address] Triglyceride w/Reflex 62 mg/dL Normal 0-149 [facility] Comment on above: Result Comment: TRIG ATP III CLASSIFICATION TRIG less than 150 mg/dL Normal TRIG 150-199 mg/dL Borderline high TRIG 200-500 mg/dL High TRIG greater than 500 mg/dL Very high Standard traceable to the Center for Disease Conrtrol and Prevention (CDC) test method. Performed By: #### C MP, CBC, ETOH #### [facility] [address] VLDL CHOLESTEROL 12 mg/dL Normal [facility] Comment on above: Performed By: #### C MP, CBC, ETOH #### [facility] [address] Serum or plasma high density lipoprotein (HDL) cholesterol measurementOrdered By: Shubham Ding on 09-29-2022 Cholesterol in HDL [Mass/Vol] 49 mg/dL 23-92 [facility] Comment on above: HDL CHOL ATP-III CLA SSIFICATION Cardiovascular RiskHDL > or equal to 60 mg/dL LOWHDL < 40 mg/dL HIGH Serum or plasma total choles terol/high density lipoprotein (HDL) cholesterol mass ratOrdered By: Shubham Ding on 09-29-2022 Cholesterol.total/Abi sterol in HDL [Mass ratio] 3.0 {ratio} <5.0 [facility] Thyroid Stim Hormone w/Rflxo n 09-29-2022 Thyroid Stim Hormone w/Rflx 0.75 u[iU]/mL Normal 0.45-5.33 [facility] Comment on above: Performed By: #### C MP, CBC, ETOH #### [facility] [address] [place] [address] [facility] Thyrotropin [Units/volume] i n Serum or PlasmaOrdered By: Shubham Ding on 09-29-2022 TSH Qn 0.75 m[IU]/L 0.45-5.33 [facility] Triglyceride [Mass/volume] i n Serum or PlasmaOrdered By: Shubham Ding on 09-29-2022 Triglyceride [Mass/Vol] 62 mg/dL 0-149 [facility] Comment on above: TRIG ATP III CLASSIF ICATIONTRIG less than 150 mg/dL NormalTRIG 150-199 mg/dL Borderline highTRIG 200-500 mg/dL High TRIG greater than 500 mg/dL Very highStandard traceable to the Center for Disease Conrtrol and Prevention (CDC) test method. Vitamin D 25 Hydroxy Totalon 09-29-2022 Vitamin D 25 Hydroxy Total 57.5 ng/mL Normal 30-100 [facility] Comment on above: Result Comment: GREY MIN D STATUS 25(OH)VITAMIN D RANGE (ng/mL) Deficient <20 Insufficient 20 to <30 Sufficient 30 to 100 Reference: Richy MF,Al NC, Yvonne BUCHANAN, et al. Evaluation,treatment, and prevention of vitamin D deficiency; an Endocrine Society clinical practice guideline. JCEM. 2010; 96(7):1911-30. PERFORMED BY: [facility] [address] [place] [address] PATHOLOGIST [employer] OPERATOR HANNY WEAVER M.D. Performed By: #### C MP, CBC, ETOH #### [facility] [address] Vitamin D+Metabolites [Mass/ volume] in Serum or PlasmaOrdered By: Shubham Ding on 09-29-2022 Vitamin D+Metabolites [Mass/Vol] 57.5 ng/mL 30-100 [facility] Comment on above: VITAMIN D STATUS 25( [place])VITAMIN D RANGE (ng/mL) Deficient <20 Insufficient 20 to <30Sufficient 30 to 100Reference: Richy MF,Al LUTZ, Yvonne BUCHANAN, et al. Evaluation,treatment, and prevention of vitamin D deficiency; an Endocrine Society clinical practice guideline. JCEM. 2010; 96(7):1911-30. Cholesterol [Mass/volume] in Serum or PlasmaOrdered By: Shubham Ding on 08-04-2022 Cholesterol [Mass/Vol] 133 mg/dL 140-200 [facility] Comment on above: Chol less than 200 m g/dl low riskChol 201-239 mg/dl borderline riskChol 240 mg/dl and greater high risk Cholesterol in LDL Calc [Mas s/Vol]Ordered By: Shubham Ding on 08-04-2022 Cholesterol in LDL [Mass/Vol] 69 mg/dL 0-100 [facility] Comment on above: LDL ATP III CLASSIFI CATIONLDL less than 100 mg/dL OptimalLDL 100-129 mg/dL Near or above optimalLDL 130-159 mg/dL Borderline highLDL 160-189 mg/dL HighLDL greater than 189 mg/dL Very high Cholesterol in VLDL Calc [Ma ss/Vol]Ordered By: Shubham Ding on 08-04-2022 Cholesterol in VLDL [Mass/Vol] 17 mg/dL [facility] Lipid Panelon 08-04-2022 Cholesterol [Mass/Vol] 133 mg/dL Low 140-200 [facility] Comment on above: Result Comment: Chol less than 200 mg/dl low risk Chol 201-239 mg/dl borderline risk Chol 240 mg/dl and greater high risk Performed By: #### V [id number], TSH3 wRFLX, LIPID #### [facility] [address] [id number] [facility] Cholesterol in HDL [Mass/Vol] 47 mg/dL Normal 29-71 [facility] Comment on above: Result Comment: HDL CHOL ATP-III CLASSIFICATION Cardiovascular Risk HDL > or equal to 60 mg/dL LOW HDL < 40 mg/dL HIGH Performed By: #### V [id number], TSH3 wRFLX, LIPID #### [facility] [address] Cholesterol.total/Abi sterol in HDL [Mass ratio] 2.8 {ratio} Normal <5.0 [facility] Comment on above: Performed By: #### V [id number], TSH3 wRFLX, LIPID #### [facility] [address] LDL Cholesterol,Calculated 69 mg/dL Normal 0-100 [facility] Comment on above: Result Comment: LDL ATP III CLASSIFICATION LDL less than 100 mg/dL Optimal LDL 100-129 mg/dL Near or above optimal LDL 130-159 mg/dL Borderline high LDL 160-189 mg/dL High LDL greater than 189 mg/dL Very high Performed By: #### V [id number], TSH3 wRFLX, LIPID #### [facility] [address] Triglyceride w/Reflex 86 mg/dL Normal 0-149 [facility] Comment on above: Result Comment: TRIG ATP III CLASSIFICATION TRIG less than 150 mg/dL Normal TRIG 150-199 mg/dL Borderline high TRIG 200-500 mg/dL High TRIG greater than 500 mg/dL Very high Standard traceable to the Center for Disease Conrtrol and Prevention (CDC) test method. Performed By: #### V [id number], TSH3 wRFLX, LIPID #### [facility] [address] VLDL CHOLESTEROL 17 mg/dL Normal [facility] Comment on above: Performed By: #### V [id number], TSH3 wRFLX, LIPID #### [facility] [address] Serum or plasma high density lipoprotein (HDL) cholesterol measurementOrdered By: Shubham Ding on 08-04-2022 Cholesterol in HDL [Mass/Vol] 47 mg/dL 29-71 [facility] Comment on above: HDL CHOL ATP-III CLA SSIFICATION Cardiovascular RiskHDL > or equal to 60 mg/dL LOWHDL < 40 mg/dL HIGH Serum or plasma total choles terol/high density lipoprotein (HDL) cholesterol mass ratOrdered By: Shubham Ding on 08-04-2022 Cholesterol.total/Abi sterol in HDL [Mass ratio] 2.8 {ratio} <5.0 [facility] Thyroid Stim Hormone w/Rflxo n 08-04-2022 Thyroid Stim Hormone w/Rflx 0.91 u[iU]/mL Normal 0.45-5.33 [facility] Comment on above: Performed By: #### V [id number], TSH3 wRFLX, LIPID #### [facility] [address] Thyrotropin [Units/volume] i n Serum or PlasmaOrdered By: Shubham Ding on 08-04-2022 TSH Qn 0.91 m[IU]/L 0.45-5.33 [facility] Triglyceride [Mass/volume] i n Serum or PlasmaOrdered By: Shubham Ding on 08-04-2022 Triglyceride [Mass/Vol] 86 mg/dL 0-149 [facility] Comment on above: TRIG ATP III CLASSIF ICATIONTRIG less than 150 mg/dL NormalTRIG 150-199 mg/dL Borderline highTRIG 200-500 mg/dL High TRIG greater than 500 mg/dL Very highStandard traceable to the Center for Disease Conrtrol and Prevention (CDC) test method. Vitamin D 25 Hydroxy Totalon 08-04-2022 Vitamin D 25 Hydroxy Total 46.3 ng/mL Normal 30-100 [facility] Comment on above: Result Comment: GREY MIN D STATUS 25(OH)VITAMIN D RANGE (ng/mL) Deficient <20 Insufficient 20 to <30 Sufficient 30 to 100 Reference: Richy MF,Al NC, Yvonne BUCHANAN, et al. Evaluation,treatment, and prevention of vitamin D deficiency; an Endocrine Society clinical practice guideline. JCEM. 2010; 96(7):1911-30. PERFORMED BY: [facility] [address] [place] [address] PATHOLOGIST [employer] HANNY WEAVER M.D. Performed By: #### V [id number], TSH3 wRFLX, LIPID #### [facility] [address] [place] [address] [facility] Vitamin D+Metabolites [Mass/ volume] in Serum or PlasmaOrdered By: Shubham Ding on 08-04-2022 Vitamin D+Metabolites [Mass/Vol] 46.3 ng/mL 30-100 [facility] Comment on above: VITAMIN D STATUS 25( [place])VITAMIN D RANGE (ng/mL) Deficient <20 Insufficient 20 to <30Sufficient 30 to 100Reference: Richy MF,Al LUTZ, Yvonne BUCHANAN, et al. Evaluation,treatment, and prevention of vitamin D deficiency; an Endocrine Society clinical practice guideline. JCEM. 2010; 96(7):1911-30. Alanine aminotransferase [En zymatic activity/volume] in Serum or PlasmaOrdered By: Christiano Phelps on 08-03-2022 ALT [Catalytic activity/Vol] 26 U/L 7-52 [facility] Albumin [Mass/volume] in Ser um or Plasma by Bromocresol green (BCG) dye binding methoOrdered By: Christiano Phelps on 08-03-2022 Albumin BCG dye [Mass/Vol] 3.9 g/dL 3.5-5.7 [facility] Alkaline phosphatase [Enzyma tic activity/volume] in Serum or PlasmaOrdered By: Christiano Phelps on 08-03-2022 ALP [Catalytic activity/Vol] 64 U/L 34-104 [facility] Amphetamine Screen Ql (U)Ord ered By: Christiano Phelps on 08-03-2022 Amphetamines Ql (U) Negative Negative [facility] Aspartate aminotransferase [ Enzymatic activity/volume] in Serum or PlasmaOrdered By: Christiano Phelps on 08-03-2022 AST [Catalytic activity/Vol] 19 U/L 13-39 [facility] Barbiturates [Presence] in U rine by Screen methodOrdered By: Christiano Phelps on 08-03-2022 Barbiturates Screen Ql (U) Negative Negative [facility] Basophils Auto (Bld) [#/Vol] Ordered By: Christiano Phelps on 08-03-2022 Basophils (Bld) [#/Vol] 0.0 10*3/uL 0.0-0.2 [facility] Basophils/100 WBC Auto (Bld) Ordered By: Christiano Phelps on 08-03-2022 Basophils/100 WBC (Bld) 0.3 % . [facility] Benzodiazepines Screen Ql (U )Ordered By: Christiano Phelps on 08-03-2022 Benzodiazepines Ql (U) Negative Negative [facility] Benzoylecgonine [Presence] i n Urine by Screen methodOrdered By: Christiano Phelps on 08-03-2022 Benzoylecgonine Screen Ql (U) Negative Negative [facility] Bilirubin Test strip Ql (U)O rdered By: Christiano Phelps on 08-03-2022 Bilirubin Ql (U) Negative Negative [facility] Bilirubin.total [Mass/volume ] in Serum or PlasmaOrdered By: Christiano Phelps on 08-03-2022 Bilirubin [Mass/Vol] 0.4 mg/dL 0.3-1.0 [facility] Calcium [Mass/volume] in Ser um or PlasmaOrdered By: Christiano Phelps on 08-03-2022 Calcium [Mass/Vol] 8.9 mg/dL 8.6-10.3 [facility] Cannabinoids [Presence] in U rine by Screen methodOrdered By: Christiano Phelps on 08-03-2022 Cannabinoids Screen Ql (U) Positive Negative [facility] Comment on above: These are unconfirme d results and should not be used for legal purposes. Drug Cut-Off Concentration: AMPH 1000 ng/mL DEANGELO 200 ng/mL BEATRIZ 200 ng/mL COCM 300 ng/mL OP 300 ng/mL PCP 25 ng/mL THC 20 ng/mL Carbon dioxide, total [Moles /volume] in Serum or PlasmaOrdered By: Christiano Phelps on 08-03-2022 CO2 [Moles/Vol] 32.6 mmol/L 21.0-31.0 [facility] Chloride [Moles/volume] in S messi or PlasmaOrdered By: Christiano Phelps on 08-03-2022 Chloride [Moles/Vol] 104 mmol/L 98-107 [facility] Color Auto (U)Ordered By: Radames red Mattie on 08-03-2022 Color (U) Yellow Yellow [facility] Complete Blood Count Auto Di ffon 08-03-2022 Basophils (Bld) [#/Vol] 0.0 10*3/uL Normal 0.0-0.2 [facility] Comment on above: Result Comment: PERF ORMED BY: [place] [address] PATHOLOGIST [employer] HANNY WEAVER M.D. Performed By: #### C MP, CBC, ETOH #### [address] Basophils/100 WBC (Bld) 0.3 % Normal . [facility] Comment on above: Performed By: #### C MP, CBC, ETOH #### [place] [address] [place] Eosinophils (Bld) [#/Vol] 0.1 10*3/uL Normal 0.0-0.45 [facility] Comment on above: Performed By: #### C MP, CBC, ETOH #### [place] [address] [place] Eosinophils/100 WBC (Bld) 1.7 % Normal . [facility] Comment on above: Performed By: #### C MP, CBC, ETOH #### [address] Erythrocyte distribution width (RBC) [Ratio] 13.5 % Normal 12.0-14.8 [facility] Comment on above: Performed By: #### C MP, CBC, ETOH #### [place] [address] [place] Hematocrit (Bld) [Volume fraction] 43.8 % Normal 38.8-50.0 [facility] Comment on above: Performed By: #### C MP, CBC, ETOH #### [place] [address] [place] Hemoglobin (Bld) [Mass/Vol] 14.6 g/dL Normal 13.0-17.0 [facility] Comment on above: Performed By: #### C MP, CBC, ETOH #### [place] [address] [place] Lymphocytes (Bld) [#/Vol] 1.2 10*3/uL Normal 1.00-4.8 [facility] Comment on above: Performed By: #### C MP, CBC, ETOH #### [address] Lymphocytes/100 WBC (Bld) 23.9 % Normal . [facility] Comment on above: Performed By: #### C MP, CBC, ETOH #### [facility] [address] MCH (RBC) [Entitic mass] 28.8 pg Normal 27.5-35.2 [facility] Comment on above: Performed By: #### C MP, CBC, ETOH #### [address] MCV (RBC) [Entitic vol] 86.2 fL Normal 83.5-101 [facility] Comment on above: Performed By: #### C MP, CBC, ETOH #### [address] Mean Corpuscular HGB Conc 33.5 g/dL Normal 32.5-35.6 [facility] Comment on above: Performed By: #### C MP, CBC, ETOH #### [place] [address] [place] Monocytes (Bld) [#/Vol] 0.4 10*3/uL Normal 0.0-0.8 [facility] Comment on above: Performed By: #### C MP, CBC, ETOH #### [place] [address] [place] Monocytes/100 WBC (Bld) 18.07 % Normal 0.00-20.00 [facility] Comment on above: Performed By: #### C MP, CBC, ETOH #### [place] [address] [place] Monocytes/100 WBC (Bld) 8.3 % Normal . [facility] Comment on above: Performed By: #### C MP, CBC, ETOH #### [address] Neutrophils (Bld) [#/Vol] 3.4 10*3/uL Normal 1.8-7.7 [facility] Comment on above: Performed By: #### C MP, CBC, ETOH #### [address] Neutrophils/100 WBC (Bld) 65.8 % Normal . [facility] Comment on above: Performed By: #### C MP, CBC, ETOH #### [facility] [address] NRBC% 0.2 /100{WBC} Normal 0-0.5 [facility] Comment on above: Performed By: #### C MP, CBC, ETOH #### [address] Platelet mean volume (Bld) [Entitic vol] 8.8 fL Normal 6.6-10.1 [facility] Comment on above: Performed By: #### C MP, CBC, ETOH #### [address] Platelets (Bld) [#/Vol] 201 10*3/uL Normal 150-450 [facility] Comment on above: Performed By: #### C MP, CBC, ETOH #### [address] RBC (Bld) [#/Vol] 5.08 10*6/uL Normal 3.90-5.60 [facility] Comment on above: Performed By: #### C MP, CBC, ETOH #### [address] WBC (Bld) [#/Vol] 5.2 10*3/uL Normal 4.1-10.5 [facility] Comment on above: Performed By: #### C MP, CBC, ETOH #### [address] Comprehensive Metabolic Pane karan 08-03-2022 Albumin [Mass/Vol] 3.9 g/dL Normal 3.5-5.7 [facility] Comment on above: Performed By: #### C MP, CBC, ETOH #### [address] Albumin/Globulin [Mass ratio] 1.4 {ratio} Normal [facility] Comment on above: Performed By: #### C MP, CBC, ETOH #### [facility] [address] ALP [Catalytic activity/Vol] 64 U/L Normal 34-104 [facility] Comment on above: Performed By: #### C MP, CBC, ETOH #### [facility] [address] ALT [Catalytic activity/Vol] 26 U/L Normal 7-52 [facility] Comment on above: Performed By: #### C MP, CBC, ETOH #### [facility] [address] Anion gap [Moles/Vol] 6.4 mmol/L Normal 6.0-15.0 [facility] Comment on above: Performed By: #### C MP, CBC, ETOH #### [address] AST [Catalytic activity/Vol] 19 U/L Normal 13-39 [facility] Comment on above: Performed By: #### C MP, CBC, ETOH #### [place] [address] [place] Bilirubin [Mass/Vol] 0.4 mg/dL Normal 0.3-1.0 [facility] Comment on above: Performed By: #### C MP, CBC, ETOH #### [facility] [address] [place] [address] [place] Calcium [Mass/Vol] 8.9 mg/dL Normal 8.6-10.3 [facility] Comment on above: Performed By: #### C MP, CBC, ETOH #### [facility] [address] [place] [address] [place] Chloride [Moles/Vol] 104 mmol/L Normal 98-107 [facility] Comment on above: Performed By: #### C MP, CBC, ETOH #### [facility] [address] [place] [address] [place] CO2 [Moles/Vol] 32.6 mmol/L High 21.0-31.0 [facility] Comment on above: Performed By: #### C MP, CBC, ETOH #### [facility] [address] Creatinine [Mass/Vol] 0.77 mg/dL Normal 0.70-1.30 [facility] Comment on above: Performed By: #### C MP, CBC, ETOH #### [facility] [address] [place] [address] [place] Creatinine Clr Calc Pharmacy 144.27 Normal [facility] Comment on above: Result Comment: PERF ORMED BY: [place] [address] PATHOLOGIST [employer] HANNY WEAVER M.D. Performed By: #### C MP, CBC, ETOH #### [facility] [address] GFR/1.73 sq M.predicted MDRD (S/P/Bld) [Vol rate/Area] mL/min/{1.73_m2} [facility] Comment on above: Performed By: #### C MP, CBC, ETOH #### [facility] [address] Globulin (S) [Mass/Vol] 2.7 g/dL Normal [facility] Comment on above: Performed By: #### C MP, CBC, ETOH #### [facility] [address] Glucose [Mass/Vol] 86 mg/dL Normal 70-100 [facility] Comment on above: Result Comment: [facility] Glucose Reference Range is dependent on time and content of last meal. Glucose of more than 200 mg/dL in a nonstressed, ambulatory subject supports the diagnosis of Diabetes Mellitus. ADA recommended reference range Performed By: #### C MP, CBC, ETOH #### [facility] [address] Potassium [Moles/Vol] 4.0 mmol/L Normal 3.5-5.1 [facility] Comment on above: Performed By: #### C MP, CBC, ETOH #### [address] Protein [Mass/Vol] 6.6 g/dL Normal 6.4-8.9 [facility] Comment on above: Performed By: #### C MP, CBC, ETOH #### [address] Sodium [Moles/Vol] 139 mmol/L Normal 136-145 [facility] Comment on above: Performed By: #### C MP, CBC, ETOH #### [address] Urea nitrogen [Mass/Vol] 12 mg/dL Normal 7-25 [facility] Comment on above: Performed By: #### C MP, CBC, ETOH #### [address] Creatinine [Mass/volume] in Serum or PlasmaOrdered By: Christiano Phelps on 08-03-2022 Creatinine [Mass/Vol] 0.77 mg/dL 0.70-1.30 [facility] Drug Screen,Urineon 08-04-19 23 Amphetamine Screen,Urine Negative Normal Negative [facility] Comment on above: Performed By: #### U A, URDS #### [place] [address] [place] Barbiturate Screen,Urine Negative Normal Negative [facility] Comment on above: Performed By: #### U A, URDS #### [facility] [address] [place] [address] [place] Benzodiazepines Screen,Urine Negative Normal Negative [facility] Comment on above: Performed By: #### U A, URDS #### [place] [address] [place] Cannabinoid Screen,Urine Positive High Negative [facility] Comment on above: Result Comment: Thes e are unconfirmed results and should not be used for legal purposes. Drug Cut-Off Concentration: AMPH 1000 ng/mL DEANGELO 200 ng/mL BEATRIZ 200 ng/mL COCM 300 ng/mL OP 300 ng/mL PCP 25 ng/mL THC 20 ng/mL PERFORMED BY: [address] [place] [address] PATHOLOGIST [employer] HANNY WEAVER M.D. Performed By: #### U A, URDS #### [address] Cocaine Screen,Urine Negative Normal Negative [facility] Comment on above: Performed By: #### U A, URDS #### [facility] [address] [place] [address] Opiate Screen,Urine Negative Normal Negative [facility] Comment on above: Performed By: #### U A, URDS #### [address] Phencyclidine Screen,Urine Negative Normal Negative [facility] Comment on above: Performed By: #### U A, URDS #### [address] ECG 12 lead ECGon 08-03-2022 ECG 12 lead ECG [facility] [place] [address] [place] [address] Electrocardiograph Report Signed Patient: Betty Rosenberg MR#: [id number] 140 : 2000 Acct:[id number] Age/Sex: 21 / M ADM Date: 08/03/22 Loc: Room: [address] [place] [address] Type: ADM IN Attending Dr: Shubham Ding [...] Princess Smalls MD 0 08/03/22 1630 Normal [facility] Eosinophils Auto (Bld) [#/Vo l]Ordered By: Christiano Phelps on 08-03-2022 Eosinophils (Bld) [#/Vol] 0.1 10*3/uL 0.0-0.45 [facility] Eosinophils/100 WBC Auto (Bl d)Ordered By: Christiano Phelps on 08-03-2022 Eosinophils/100 WBC (Bld) 1.7 % . [facility] Erythrocyte distribution wid th Auto (RBC) [Ratio]Ordered By: Christiano Phelps on 08-03-2022 Erythrocyte distribution width (RBC) [Ratio] 13.5 % 12.0-14.8 [facility] Ethanol [Mass/volume] in Ser um or PlasmaOrdered By: Christiano Phelps on 08-03-2022 Ethanol [Mass/Vol] mg/dL [facility] Ethanol [Mass/Vol] TNP [facility] Comment on above: Test not performed Ethyl Alcohol Profileon 07-16 Ethanol [Mass/Vol] mg/dL Normal [facility] Comment on above: Performed By: #### C MP, CBC, ETOH #### [facility] [address] Percent Ethanol Not performed Normal [facility] Comment on above: Result Comment: PERF ORMED BY: [place] [address] PATHOLOGIST [employer] HANNY WEAVER M.D. Performed By: #### C MP, CBC, ETOH #### [facility] [address] Globulin Calc (S) [Mass/Vol] Ordered By: Christiano Phelps on 08-03-2022 Globulin (S) [Mass/Vol] 2.7 g/dL [facility] Glucose [Mass/volume] in Ser um or PlasmaOrdered By: Christiano Phelps on 08-03-2022 Glucose [Mass/Vol] 86 mg/dL 70-100 [facility] Comment on above: ADA recommended refe rence rangeRandom Glucose Reference Range is dependent on time and content of last meal. Glucose of more than 200 mg/dL in a nonstressed, ambulatory subject supports the diagnosis of Diabetes Mellitus. Hematocrit Auto (Bld) [Volum e fraction]Ordered By: Christiano Phelps on 08-03-2022 Hematocrit (Bld) [Volume fraction] 43.8 % 38.8-50.0 [facility] Hemoglobin [Mass/volume] in BloodOrdered By: Christiano Phelps on 08-03-2022 Hemoglobin (Bld) [Mass/Vol] 14.6 g/dL 13.0-17.0 [facility] Ketones Auto test strip (U) [Mass/Vol]Ordered By: Christiano Phelps on 08-03-2022 Ketones (U) [Mass/Vol] Trace Negative [facility] Leukocytes [#/volume] correc michael for nucleated erythrocytes in Blood by Automated counOrdered By: Christiano Phelps on 08-03-2022 WBC corrected for nucl RBC Auto (Bld) [#/Vol] 5.2 10*3/uL 4.1-10.5 [facility] Lymphocytes Auto (Bld) [#/Vo l]Ordered By: Christiano Phelps on 08-03-2022 Lymphocytes (Bld) [#/Vol] 1.2 10*3/uL 1.00-4.8 [facility] Lymphocytes/100 WBC Auto (Bl d)Ordered By: Christiano Phelps on 08-03-2022 Lymphocytes/100 WBC (Bld) 23.9 % . [facility] MCH Auto (RBC) [Entitic mass ]Ordered By: Christiano Phelps on 08-03-2022 MCH (RBC) [Entitic mass] 28.8 pg 27.5-35.2 [facility] MCHC Auto (RBC) [Mass/Vol]Or dered By: Christiano Phelps on 08-03-2022 MCHC (RBC) [Mass/Vol] 33.5 g/dL 32.5-35.6 [facility] MCV Auto (RBC) [Entitic vol] Ordered By: Christiano Phelps on 08-03-2022 MCV (RBC) [Entitic vol] 86.2 fL 83.5-101 [facility] Monocyte distribution width [Entitic volume] in Blood by AutomatedOrdered By: Christiano Phelps on 08-03-2022 Monocyte distribution width Auto (Bld) [Entitic vol] 18.07 % 0.00-20.00 [facility] Monocytes Auto (Bld) [#/Vol] Ordered By: Christiano Phelps on 08-03-2022 Monocytes (Bld) [#/Vol] 0.4 10*3/uL 0.0-0.8 [facility] Monocytes/100 WBC Auto (Bld) Ordered By: Christiano Phelps on 08-03-2022 Monocytes/100 WBC (Bld) 8.3 % . [facility] Neutrophils Auto (Bld) [#/Vo l]Ordered By: Christiano Phelps on 08-03-2022 Neutrophils (Bld) [#/Vol] 3.4 10*3/uL 1.8-7.7 [facility] Neutrophils/100 WBC Auto (Bl d)Ordered By: Christiano Phelps on 08-03-2022 Neutrophils/100 WBC (Bld) 65.8 % . [facility] Nitrite Test strip Ql (U)Ord ered By: Christiano Phelps on 08-03-2022 Nitrite Ql (U) Negative Negative [facility] No Panel InformationOrdered By: Christiano Phelps on 08-03-2022 Estimated GFR (CKD-EPI) > 60.0 mL/Min [facility] Creatinine Clearance (Chem 144.27 [facility] Nucleated erythrocytes [Pres ence] in Blood by Automated countOrdered By: Christiano Phelps on 08-03-2022 Nucleated RBC Auto Ql (Bld) 0.2 /100{WBC} 0-0.5 [facility] Opiates [Presence] in Urine by Screen methodOrdered By: Christiano Phelps on 08-03-2022 Opiates Screen Ql (U) Negative Negative [facility] Phencyclidine Screen Ql (U)O rdered By: Christiano Phelps on 08-03-2022 Phencyclidine Ql (U) Negative Negative [facility] Platelet mean volume Auto (B ld) [Entitic vol]Ordered By: Christiano Phelps on 08-03-2022 Platelet mean volume (Bld) [Entitic vol] 8.8 fL 6.6-10.1 [facility] Platelets Auto (Bld) [#/Vol] Ordered By: Christiano Phelps on 08-03-2022 Platelets (Bld) [#/Vol] 201 10*3/uL 150-450 [facility] Potassium [Moles/volume] in Serum or PlasmaOrdered By: Christiano Phelps on 08-03-2022 Potassium [Moles/Vol] 4.0 mmol/L 3.5-5.1 [facility] Protein Auto test strip (U) [Mass/Vol]Ordered By: Christiano Phelps on 08-03-2022 Protein (U) [Mass/Vol] Negative Negative [facility] Protein [Mass/volume] in Ser um or PlasmaOrdered By: Christiano Phelps on 08-03-2022 Protein [Mass/Vol] 6.6 g/dL 6.4-8.9 [facility] RBC Auto (Bld) [#/Vol]Ordere d By: Christiano Phelps on 08-03-2022 RBC (Bld) [#/Vol] 5.08 10*6/uL 3.90-5.60 [facility] Serum or plasma albumin/glob ulin mass ratioOrdered By: Christiano Phelps on 08-03-2022 Albumin/Globulin [Mass ratio] 1.4 {ratio} [facility] Serum or plasma anion gap de terminationOrdered By: Christiano Phelps on 08-03-2022 Anion gap [Moles/Vol] 6.4 mmol/L 6.0-15.0 [facility] Sodium [Moles/volume] in Ser um or PlasmaOrdered By: Christiano Phelps on 08-03-2022 Sodium [Moles/Vol] 139 mmol/L 136-145 [facility] Specific gravity Auto test s trip (U) [Rel density]Ordered By: Christiano Phelps on 08-03-2022 Specific gravity (U) [Rel density] 1.023 1.001-1.030 [facility] Urea nitrogen [Mass/volume] in Serum or PlasmaOrdered By: Christiano Phelps on 08-03-2022 Urea nitrogen [Mass/Vol] 12 mg/dL 7-25 [facility] Urinalysison 08-03-2022 Appearance (U) Clear Normal Clear [facility] Comment on above: Order Comment: Name Collection Type:: Clean-Voided Midstream Performed By: #### U A, URDS #### [facility] [address] [id number] [place] Bilirubin,Urine Negative Normal Negative [facility] Comment on above: Order Comment: Name Collection Type:: Clean-Voided Midstream Performed By: #### U A, URDS #### [facility] [address] [id number] [place] Color (U) Yellow Normal Yellow [facility] Comment on above: Order Comment: Name Collection Type:: Clean-Voided Midstream Performed By: #### U A, URDS #### [facility] [address] [place], [place] [id number] [place] Glucose Ql (U) Normal Normal Normal [facility] Comment on above: Order Comment: Name Collection Type:: Clean-Voided Midstream Performed By: #### U A, URDS #### [facility] [address] [place], [place] [phone] [place] Ketones Ql (U) Trace High Negative [facility] Comment on above: Order Comment: Name Collection Type:: Clean-Voided Midstream Performed By: #### U A, URDS #### [facility] [address] [place], [place] [phone] [place] Leukocyte esterase Test strip Ql (U) Negative Normal Negative [facility] Comment on above: Order Comment: Name Collection Type:: Clean-Voided Midstream Performed By: #### U A, URDS #### [facility] [address] [place], [place] [phone] [place] Nitrite,Urine Negative Normal Negative [facility] Comment on above: Order Comment: Name Collection Type:: Clean-Voided Midstream Performed By: #### U A, URDS #### [facility] [address] [place], [place] [phone] [place] Occult Blood,Urine Negative Normal Negative [facility] Comment on above: Order Comment: Name Collection Type:: Clean-Voided Midstream Result Comment: PERF ORMED BY: [place] [address] PATHOLOGIST [employer] HANNY WEAVER M.D. Performed By: #### U A, URDS #### [facility] [address] [place] [address] pH (U) 7.5 [pH] Normal 5.0-9.0 [facility] Comment on above: Order Comment: Name Collection Type:: Clean-Voided Midstream Performed By: #### U A, URDS #### [facility] [address] [place] [address] Protein,Urine Negative Normal Negative [facility] Comment on above: Order Comment: Name Collection Type:: Clean-Voided Midstream Performed By: #### U A, URDS #### [address] Specificy [place],Urine 1.023 Normal 1.001-1.030 [facility] Comment on above: Order Comment: Name Collection Type:: Clean-Voided Midstream Performed By: #### U A, URDS #### [facility] [address] [place] [address] Urobilinogen,Urine Normal Normal Normal [facility] Comment on above: Order Comment: Name Collection Type:: Clean-Voided Midstream Performed By: #### U A, URDS #### [facility] [address] [place] [address] Urine clarity by refractomet ry automatedOrdered By: Christiano Phelps on 08-03-2022 Clarity Refractometry automated (U) Clear Clear [facility] Urine glucose measurement by automated test strip (mass/volume)Ordered By: Christiano Phelps on 08-03-2022 Glucose Auto test strip (U) [Mass/Vol] Normal mg/dL Normal [facility] Urine hemoglobin detection b y automated test stripOrdered By: Christiano Phelps on 08-03-2022 Hemoglobin Auto test strip Ql (U) Negative Negative [facility] Urine leukocyte esterase det ection by automated test stripOrdered By: Christiano Phelps on 08-03-2022 Leukocyte esterase Auto test strip Ql (U) Negative Negative [facility] Urobilinogen Auto test strip (U) [Mass/Vol]Ordered By: Christiano Phepls on 08-03-2022 Urobilinogen (U) [Mass/Vol] Normal mg/dL Normal [facility] WBC Auto (Bld) [#/Vol]Ordere d By: Christiano Phelps on 08-03-2022 WBC (Bld) [#/Vol] 5.2 10*3/uL 4.1-10.5 [facility] pH Auto test strip (U)Ordere d By: Christiano Phelps on 08-03-2022 pH (U) 7.5 [pH] 5.0-9.0 [facility] Cholesterol [Mass/volume] in Serum or PlasmaOrdered By: Brandon Ca on 06-13-2022 Cholesterol [Mass/Vol] 118 mg/dL 140-200 [facility] Comment on above: Chol less than 200 m g/dl low riskChol 201-239 mg/dl borderline riskChol 240 mg/dl and greater high risk Cholesterol in LDL Calc [Mas s/Vol]Ordered By: Brandon Ca on 06-13-2022 Cholesterol in LDL [Mass/Vol] 66 mg/dL 0-100 [facility] Comment on above: LDL ATP III CLASSIFI CATIONLDL less than 100 mg/dL OptimalLDL 100-129 mg/dL Near or above optimalLDL 130-159 mg/dL Borderline highLDL 160-189 mg/dL HighLDL greater than 189 mg/dL Very high Cholesterol in VLDL Calc [Ma ss/Vol]Ordered By: Brandon Ca on 06-13-2022 Cholesterol in VLDL [Mass/Vol] 10 mg/dL [facility] Lipid Panelon 06-13-2022 Cholesterol [Mass/Vol] 118 mg/dL Low 140-200 [facility] Comment on above: Result Comment: Chol less than 200 mg/dl low risk Chol 201-239 mg/dl borderline risk Chol 240 mg/dl and greater high risk Performed By: #### C MP, CBC, ETOH #### [facility] [address] Cholesterol in HDL [Mass/Vol] 42 mg/dL Normal [facility] Comment on above: Result Comment: HDL CHOL ATP-III CLASSIFICATION Cardiovascular Risk HDL > or equal to 60 mg/dL LOW HDL < 40 mg/dL HIGH Performed By: #### C MP, CBC, ETOH #### [facility] [address] Cholesterol.total/Abi sterol in HDL [Mass ratio] 2.8 {ratio} Normal <5.0 [facility] Comment on above: Performed By: #### C MP, CBC, ETOH #### [facility] [address] LDL Cholesterol,Calculated 66 mg/dL Normal 0-100 [facility] Comment on above: Result Comment: LDL ATP III CLASSIFICATION LDL less than 100 mg/dL Optimal LDL 100-129 mg/dL Near or above optimal LDL 130-159 mg/dL Borderline high LDL 160-189 mg/dL High LDL greater than 189 mg/dL Very high Performed By: #### C MP, CBC, ETOH #### [facility] [address] [phone] [facility] Triglyceride w/Reflex 52 mg/dL Normal 0-149 [facility] Comment on above: Result Comment: TRIG ATP III CLASSIFICATION TRIG less than 150 mg/dL Normal TRIG 150-199 mg/dL Borderline high TRIG 200-500 mg/dL High TRIG greater than 500 mg/dL Very high Standard traceable to the Center for Disease Conrtrol and Prevention (CDC) test method. Performed By: #### C MP, CBC, ETOH #### [facility] [address] VLDL CHOLESTEROL 10 mg/dL Normal [facility] Comment on above: Performed By: #### C MP, CBC, ETOH #### [facility] [address] Serum or plasma high density lipoprotein (HDL) cholesterol measurementOrdered By: Brandon Ca on 06-13-2022 Cholesterol in HDL [Mass/Vol] 42 mg/dL [facility] Comment on above: HDL CHOL ATP-III CLA SSIFICATION Cardiovascular RiskHDL > or equal to 60 mg/dL LOWHDL < 40 mg/dL HIGH Serum or plasma total choles terol/high density lipoprotein (HDL) cholesterol mass ratOrdered By: Brandon Ca on 06-13-2022 Cholesterol.total/Abi sterol in HDL [Mass ratio] 2.8 {ratio} <5.0 [facility] Thyroid Stim Hormone w/Rflxo n 06-13-2022 Thyroid Stim Hormone w/Rflx 1.03 u[iU]/mL Normal 0.45-5.33 [facility] Comment on above: Performed By: #### C MP, CBC, ETOH #### [facility] [address] Thyrotropin [Units/volume] i n Serum or PlasmaOrdered By: Brandon Ca on 06-13-2022 TSH Qn 1.03 m[IU]/L 0.45-5.33 [facility] Triglyceride [Mass/volume] i n Serum or PlasmaOrdered By: Brandon Ca on 06-13-2022 Triglyceride [Mass/Vol] 52 mg/dL 0-149 [facility] Comment on above: TRIG ATP III CLASSIF ICATIONTRIG less than 150 mg/dL NormalTRIG 150-199 mg/dL Borderline highTRIG 200-500 mg/dL High TRIG greater than 500 mg/dL Very highStandard traceable to the Center for Disease Conrtrol and Prevention (CDC) test method. Vitamin D 25 Hydroxy Totalon 06-13-2022 Vitamin D 25 Hydroxy Total 50.0 ng/mL Normal 30-100 [facility] Comment on above: Result Comment: GREY MIN D STATUS 25(OH)VITAMIN D RANGE (ng/mL) Deficient <20 Insufficient 20 to <30 Sufficient 30 to 100 Reference: Richy MF,Al NC, Guille-Osorio BUCHANAN, et al. Evaluation,treatment, and prevention of vitamin D deficiency; an Endocrine Society clinical practice guideline. JCEM. 2010; 96(7):1911-30. PERFORMED BY: [facility] [address] [place] [address] PATHOLOGIST [employer] HANNY WEAVER M.D. Performed By: #### C MP, CBC, ETOH #### [facility] [address] Vitamin D+Metabolites [Mass/ volume] in Serum or PlasmaOrdered By: Brandon Ca on 06-13-2022 Vitamin D+Metabolites [Mass/Vol] 50.0 ng/mL 30-100 [facility] Comment on above: VITAMIN D STATUS 25( [place])VITAMIN D RANGE (ng/mL) Deficient <20 Insufficient 20 to <30Sufficient 30 to 100Reference: Richy MF,Al NC, Yvonne BUCHANAN, et al. Evaluation,treatment, and prevention of vitamin D deficiency; an Endocrine Society clinical practice guideline. JCEM. 2010; 96(7):1911-30. ACETAMINOPHENon 06-12-2022 Acetaminophen [Mass/Vol] ug/mL Critically low 10.0-30.0 [facility] Comment on above: Performed By: #### A CET, SALYC, ETH, CMP #### [facility] [address] [place] [address] Dr. Annabella Lara CBC AUTO DIFFon 06-12-2022 BASO # 0.0 103/ul Normal 0.0-0.1 [facility] Comment on above: Performed By: #### C BC #### [facility] [address] [place] [address] Dr. Annabella Lara Basophils/100 WBC (Bld) 0.3 % Normal 0.2-2.0 [facility] Comment on above: Performed By: #### C BC #### [facility] [address] [address] [address] Annabella Lara EO # 0.0 103/ul Normal 0.0-0.7 [facility] Comment on above: Performed By: #### C BC #### [facility] [address] [place] [address] Dr. Annabella Lara Eosinophils/100 WBC (Bld) 0.5 % Critically low 0.9-7.0 [facility] Comment on above: Performed By: #### C BC #### [facility] [address] [place] [address] Dr. Annabella Lara Erythrocyte distribution width (RBC) [Ratio] 12.1 % Normal 11.0-15.0 [facility] Comment on above: Performed By: #### C BC #### [facility] [address] [place] [address] Dr. Annabella Lara Hematocrit (Bld) [Volume fraction] 46.8 % Normal 42.0-54.0 [facility] Comment on above: Performed By: #### C BC #### [facility] [address] [place] [address] Dr. Annabella Lara Hemoglobin (Bld) [Mass/Vol] 15.9 g/dL Normal 14.0-18.0 [facility] Comment on above: Performed By: #### C BC #### [facility] [address] [place] [address] Dr. Annabella Lara IG # 0.02 10e3/ul Normal 0.00-0.03 [facility] Comment on above: Performed By: #### C BC #### [facility] [address] [place] [address] Dr. Annabella Lara IG % 0.3 % Normal 0.0-0.5 [facility] Comment on above: Performed By: #### C BC #### [facility] [address] [place] [address] Dr. Annabella Lara LYMPH # 1.2 103/ul Normal 1.2-3.8 [facility] Comment on above: Performed By: #### C BC #### [facility] [address] [place] [address] Dr. Annabella Lara Lymphocytes/100 WBC (Bld) 15.9 % Critically low 20.5-60.0 [facility] Comment on above: Performed By: #### C BC #### [facility] [address] [place] [address] Dr. Annabella Lara MANUAL DIFF REQ NO Normal [facility] Comment on above: Performed By: #### C BC #### [facility] [address] [place] [address] Dr. Annabella Lara MCH (RBC) [Entitic mass] 28.9 pg Normal 25.9-34.0 [facility] Comment on above: Performed By: #### C BC #### [facility] [address] [place] [address] Dr. Annabella Lara MCHC (RBC) [Mass/Vol] 34.0 g/dL Normal 29.9-35.2 [facility] Comment on above: Performed By: #### C BC #### [facility] [address] [place] [address] Dr. Annabella Lara MCV (RBC) [Entitic vol] 84.9 fL Normal 80.0-94.0 [facility] Comment on above: Performed By: #### C BC #### [facility] [address] [place] [address] Dr. Annabella Lara MONO # 0.4 103/ul Normal 0.3-0.8 [facility] Comment on above: Performed By: #### C BC #### [facility] [address] [place] [address] Dr. Annabella Lara Monocytes/100 WBC (Bld) 5.6 % Normal 1.7-12.0 [facility] Comment on above: Performed By: #### C BC #### [facility] [address] [place] [address] Dr. Annabella Lara NEUT # 5.9 103/ul Normal 1.4-6.5 [facility] Comment on above: Performed By: #### C BC #### [facility] [address] [place] [address] Dr. Annabella Lara Neutrophils/100 WBC (Bld) 77.4 % Critically high 43.0-75.0 [facility] Comment on above: Performed By: #### C BC #### [facility] [address] [place] [address] Dr. Annabella Lara Platelet mean volume (Bld) [Entitic vol] 10.2 fL Normal 9.5-13.5 [facility] Comment on above: Performed By: #### C BC #### [facility] [address] [place] [address] Dr. Annabella Lara PLT 231 103/ul Normal 150-450 [facility] Comment on above: Performed By: #### C BC #### [facility] [address] [address] [address] Annabella Lara RBC 5.51 106/ul Normal 4.70-6.10 [facility] Comment on above: Performed By: #### C BC #### [facility] [address] [id number] Annabella Lara WBC 7.6 103/ul Normal 4.0-11.0 [facility] Comment on above: Performed By: #### C BC #### [facility] [id number] Annabella Lara Covid-19 PCR ([facility])on 05-17 SARS-CoV-2 (COVID-19) RNA KATY+probe Ql (Unsp spec) Not detected Normal NOT DETECTED [facility] Comment on above: Result Comment: When [...] for this test is supported by the Director Operating of Health and Human Service's declaration that [...] used). Performed By: #### C VDTBH #### [facility] [id number] Annabella Lara DRUG SCREEN RAPID (URINE)on 06-12-2022 AMP Negative Normal NEGATIVE [facility] Comment on above: Performed By: #### D RUGRPD ####[facility] [address] [place], [place] [address]Xg. Ngozigenna Marco BAR Negative Normal NEGATIVE [facility] Comment on above: Performed By: #### D RUGRPD ####[facility] [address] [id number]. Ngozigenna Lara BUP Negative Normal NEGATIVE [facility] Comment on above: Performed By: #### D RUGRPD ####[facility] [address] [id number]. Ngozigenna Lara BZO Negative Normal NEGATIVE [facility] Comment on above: Performed By: #### D RUGRPD ####[facility] [address] [address]Dr. Annabella Lara DEQUAN Negative Normal NEGATIVE [facility] Comment on above: Performed By: #### D RUGRPD ####[facility] [address] [place], [place] [address]Dr. Annabella Lara CUT-OFFS SEE BELOW Normal [facility] Comment on above: Result Comment: AMP (Amphetamine): 500ng/mL, BAR (Barbituates): 200 ng/mL, BZO (Benzodiazepines): 150 ng/mL, BUP (Buprenorphine): 10 ng/mL, DEQUAN (Cocaine): 150 ng/mL, mAMP (Methamphetamine): 500 ng/mL, MTD (Methadone): 200 ng/mL, OPI (Opiates): 100 ng/mL, OXY (Oxycodone): 100 ng/mL, PCP (Phencyclidine): 25 ng/mL, PPX (Propoxyphene): 300 ng/mL, THC (Cannabinoids): 50 ng/mL, TCA (Trycyclic Antidepressants): 300 ng/mL Performed By: #### D RUGRPD ####[facility] [address] [address]Dr. Annabella Lara DRUG CUT HEADER DRUG CLASS TEST SYSTEM CUT-OFF CONCENTRATIONS ARE FOLLOWS: Normal [facility] Comment on above: Performed By: #### D RUGRPD ####[facility] [address] [id number]. Annabella Lara mAMP Negative Normal NEGATIVE [facility] Comment on above: Performed By: #### D RUGRPD ####[facility] [address] [id number]. Annabella Lara MTD Negative Normal NEGATIVE [facility] Comment on above: Performed By: #### D RUGRPD ####[facility] [address] [id number]. Annabella Lara OPI Negative Normal NEGATIVE [facility] Comment on above: Performed By: #### D RUGRPD ####[facility] [address] [address]Dr. Yilan Lara OXY Negative Normal NEGATIVE [facility] Comment on above: Performed By: #### D RUGRPD ####[facility] [address] [address]Dr. Annabella Lara PCP Negative Normal NEGATIVE [facility] Comment on above: Performed By: #### D RUGRPD ####[facility] [address] [address]Dr. Annabella Lara PPX Negative Normal NEGATIVE [facility] Comment on above: Performed By: #### D RUGRPD ####[facility] [address] [address]Dr. Annabella Lara TCA Positive Abnormal NEGATIVE [facility] Comment on above: Performed By: #### D RUGRPD ####[facility] [address] [address]Dr. Annabella Lara THC Positive Abnormal NEGATIVE [facility] Comment on above: Performed By: #### D RUGRPD ####[facility] [address] [address]Dr. Annabella Lara ETHANOL (BLD ALC)on 06-13-19 23 ALC NOTE NOTE: 80 mg/dl is th e legal limit for a blood alcohol level Normal [facility] Comment on above: Performed By: #### A ANDRES DECKER ETH, CMP ####[facility] [address] [id number]. Annabella Lara Ethanol [Mass/Vol] mg/dL Normal [facility] Comment on above: Performed By: #### A ANDRES DECKER, ETH, CMP ####[facility] [address] [address]Dr. Annabella Lara PROF 14(COMP METB)on 023 Albumin [Mass/Vol] 4.4 g/dL Normal 3.4-5.0 [facility] Comment on above: Performed By: #### A CET, SALYC, ETH, CMP ####[facility] [address] [address]Dr. Annabella Lara Albumin/Globulin [Mass ratio] 1.3 {ratio} Normal [facility] Comment on above: Performed By: #### A CET, SALYC, ETH, CMP ####[facility] [address] [place], [place] [address]Dr. Annabella Lara ALP [Catalytic activity/Vol] 82 U/L Normal 46-116 [facility] Comment on above: Performed By: #### A CET, SALYC, ETH, CMP ####[facility] [address] [place], [place] [address]Dr. Annabella Lara ALT [Catalytic activity/Vol] 57 U/L Normal 16-63 [facility] Comment on above: Performed By: #### A CET, SALYC, ETH, CMP ####[facility] [address] [place], [place] [address]Dr. Annabella Lara Anion gap [Moles/Vol] 13.6 mmol/L Normal [facility] Comment on above: Performed By: #### A CET, SALYC, ETH, CMP ####[facility] [address] [place], [place] [address]Dr. Annabella Lara AST [Catalytic activity/Vol] 25 U/L Normal 15-37 [facility] Comment on above: Performed By: #### A CET, SALYC, ETH, CMP ####[facility] [address] [place], [place] [address]Dr. Annabella Lara Bilirubin [Mass/Vol] 0.5 mg/dL Normal 0.2-1.0 [facility] Comment on above: Performed By: #### A CET, SALYC, ETH, CMP ####[facility] [address] [place], [place] [address]Dr. Annabella Lara Calcium [Mass/Vol] 9.2 mg/dL Normal 8.5-10.1 [facility] Comment on above: Performed By: #### A CET, SALYC, ETH, CMP ####[facility] [address] [address]Dr. Annabella Lara Chloride [Moles/Vol] 104 mmol/L Normal 98-107 [facility] Comment on above: Performed By: #### A CET, SALYC, ETH, CMP ####[facility] [address] [address]Dr. Annabella Lara CO2 [Moles/Vol] 27.7 mmol/L Normal 21.0-32.0 [facility] Comment on above: Performed By: #### A CET, SALYC, ETH, CMP ####[facility] [address] [address]Dr. Annabella Lara Creatinine [Mass/Vol] 0.71 mg/dL Normal 0.70-1.30 [facility] Comment on above: Performed By: #### A CET, SALYC, ETH, CMP ####[facility] [address] [place], [place] [address]Dr. Annabella Lara EGFR-AF TAIWANESE >60 Normal >=60 [facility] Comment on above: Performed By: #### A CET, SALYC, ETH, CMP ####[facility] [address] [place], [place] [address]Dr. Annabella Lara EGFR-NON AF TAIWANESE >60 Normal >=60 [facility] Comment on above: Performed By: #### A CET, SALYC, ETH, CMP ####[facility] [address] [address]Dr. Annabella Lara Globulin (S) [Mass/Vol] 3.4 g/dL Normal [facility] Comment on above: Performed By: #### A CET, SALYC, ETH, CMP ####[facility] [address] [address]Dr. Annabella Lara Glucose [Mass/Vol] 96 mg/dL Normal 74-106 [facility] Comment on above: Performed By: #### A CET, SALYC, ETH, CMP ####[facility] [address] [address]Dr. Annabella Lara Potassium [Moles/Vol] 4.3 mmol/L Normal 3.5-5.1 [facility] Comment on above: Performed By: #### A CET, SALYC, ETH, CMP ####[facility] [address] [address]Dr. Annabella Lara Protein [Mass/Vol] 7.8 g/dL Normal 6.4-8.2 [facility] Comment on above: Performed By: #### A CET, SALYC, ETH, CMP ####[facility] [address] [address]Dr. Annabella Lara Sodium [Moles/Vol] 141 mmol/L Normal 136-145 [facility] Comment on above: Performed By: #### A CET, SALYC, ETH, CMP ####[facility] [address] [address]Dr. Annabella Lara Urea nitrogen [Mass/Vol] 13.0 mg/dL Normal 6.4-19.3 [facility] Comment on above: Performed By: #### A CET, SALYC, ETH, CMP ####[facility] [address] [address]Dr. Annabella Lara Urea nitrogen/Creatinine [Mass ratio] 18.3 mg/mg Normal [facility] [facility] Comment on above: Performed By: #### A CET, SALYC, ETH, CMP ####[facility] [address] [address]Dr. Ngozigenna Lara SALICYLATEon 06-12-2022 SALICYLATE <2.8 Normal <=19.9 [facility] Comment on above: Performed By: #### A CET, SALYC, ETH, CMP #### [facility] [address] [address] [address] Annabella Lara XR CSPINE MIN 4 [...] [place] Date: 2022-06-04 14:08 Normal [facility] DRUG SCREEN RAPID (URINE)on 05-28-2022 AMP Negative Normal NEGATIVE [facility] Comment on above: Performed By: #### D RUGRPD ####[facility] [address] [address]Dr. Annabella Lara BAR Negative Normal NEGATIVE [facility] Comment on above: Performed By: #### D RUGRPD ####[facility] [address] [address]Dr. Ngozigenna Lara BUP Negative Normal NEGATIVE [facility] Comment on above: Performed By: #### D RUGRPD ####[facility] [address] [address]Dr. Annabella Lara BZO Negative Normal NEGATIVE [facility] Comment on above: Performed By: #### D RUGRPD ####[facility] [address] [address]Dr. Annabella Lara DEQUAN Negative Normal NEGATIVE [facility] Comment on above: Performed By: #### D RUGRPD ####[facility] [address] [place], [place] [address]Dr. Annabella Lara CUT-OFFS SEE BELOW Normal [facility] Comment on above: Result Comment: AMP (Amphetamine): 500ng/mL, BAR (Barbituates): 200 ng/mL, BZO (Benzodiazepines): 150 ng/mL, BUP (Buprenorphine): 10 ng/mL, DEQUAN (Cocaine): 150 ng/mL, mAMP (Methamphetamine): 500 ng/mL, MTD (Methadone): 200 ng/mL, OPI (Opiates): 100 ng/mL, OXY (Oxycodone): 100 ng/mL, PCP (Phencyclidine): 25 ng/mL, PPX (Propoxyphene): 300 ng/mL, THC (Cannabinoids): 50 ng/mL, TCA (Trycyclic Antidepressants): 300 ng/mL Performed By: #### D RUGRPD ####[facility] [address] [place], [place] [address]Dr. Annabella Lara DRUG CUT HEADER DRUG CLASS TEST SYSTEM CUT-OFF CONCENTRATIONS ARE FOLLOWS: Normal [facility] Comment on above: Performed By: #### D RUGRPD ####[facility] [address] [place], [place] [address]Dr. Annabella Lara mAMP Negative Normal NEGATIVE [facility] Comment on above: Performed By: #### D RUGRPD ####[facility] [address] [place], [place] [address]Dr. Annabella Lara MTD Negative Normal NEGATIVE [facility] Comment on above: Performed By: #### D RUGRPD ####[facility] [address] [place], [place] [address]Dr. Annabella Lara OPI Negative Normal NEGATIVE [facility] Comment on above: Performed By: #### D RUGRPD ####[facility] [address] [place], [place] [address]Dr. Ngozigenna Marco OXY Negative Normal NEGATIVE [facility] Comment on above: Performed By: #### D RUGRPD ####[facility] [address] [place], [place] [address]Dr. Annabella Lara PCP Negative Normal NEGATIVE [facility] Comment on above: Performed By: #### D RUGRPD ####[facility] [address] [place], [place] [address]Dr. Annabella Lara PPX Negative Normal NEGATIVE [facility] Comment on above: Performed By: #### D RUGRPD ####[facility] [address] [place], [place] [address]Dr. Annabella Lara TCA Positive Abnormal NEGATIVE [facility] Comment on above: Performed By: #### D RUGRPD ####[facility] [address] [place], [place] [address]Dr. Annabella Lara THC Positive Abnormal NEGATIVE [facility] Comment on above: Performed By: #### D RUGRPD ####[facility] [address] [place], [place] [address]Vn. Annabella Lara YESENIA w/Reflex if POSon 2022 Nuclear Ab Ql (S) Negative Invalid Interpretation Code Negative [facility] Comment on above: Result Comment: Perf ormed at: [facility] [id number] [place], [place] [id number] PhD Missael Onela Performed By: #### 2 890974, 3438915, 49484419, 16345705, 4433690, 37577493, 8153871, 11594342 #### [facility] [address] [place] [address] Coding Summary.on 04-23-2022 Coding Summary. CD:[id number] G h0bWw+PGhlYWQ+TV9ODNR nM84atWTroI8HO1kDVM0F WOMDBNKAUS3MKP5piQZ9V UlyL7BstzWy FxgvoBBxTX89TYk0YFT9m AkmQPpvaW9dvAEvJ1v9Fo WpDF77zG26KFsjEQRnRtF 3LjZpbjsgbWFy W1wbFiNhbYPlUfd+PHRhY mxlIHdpZHRoPScxMDAlJy FsnKiyGN2kBz0gLIFmPQQ vbGxhcHNlOiBj y4saDRJxIYkgHE0mvDkwY 4EomYF6IRHlt8f7In13iB I+NHKtJHE9iJbiUTuqz48 9KbVcg2qjSRZ8 bNEfWVyqRKJ0R26fx4V1W AGyWWFiVJR9xXB5fS3lqA japlhuY4RutAQuPhM8VFD 1tWTfxD0fcSgr ifldnJ4pUab+X65MQD0SX NLDUC9BHut7Q7OwWvadsP I+FG75DOQbYR46uBHgnCX lw2vymCf5ZpGp VZXoNXH0lWsdPUgst0YrL DBiK29dtIBgz1H7QJPiaP fofDDxNrBzjUP9kW9hBRj hfcdaq8ivniim Izylh7liye22tZ45Z12eA UkzWEJtGNE4RVPxSLRrfK isay2btG6iWj9+CHnul9m li2ykvLj3KaWg FZAsqbEzeTcjXBJ7l1AdR k32L6QxmLbmu5LxIyk8ja 56qXAcx2D6vGH8KLmsRSQ yrT0uQNggVmR1 SQGyWrUahR32bADjTVvqV x8glGnopLguYT6eDENucj igEJQcnI4wHUCeqKTrmZw pCP3nFBDhxtdr m863XnIkMUE2SVFejJDmL 9PlmU0gInJjFEKaIVWvW7 HxkWYnDEttA302AWmgZnE 2OHJrojNyZ2Om QPEflYuoJlH4j6V8Na8Pm 8NmieqtMHA4NDhxFNSbFr X3IfXvExP9T5LsPwx5CPG epBwdJA0lK0Sn DLCwlrpuxtsebAS7UWRxE JFvjM25uOZdYQwfKc2pm5 T4c765JRGcHWXbrA69St1 udDogMTBwdCBU sO7lzvcol7lejrliGaCmU OFhJNz6EGw4ZDHsaUemGx HeCUC2FnV4HEE4rHUrzV4 iqAxczmbfjY8e Oyc+W29tbW6jGKJ8ZCM7i nwnJGZkxmZhIK95QI48L6 RyPjwvdGFibGU+PGRpdiB ztTfzZC2fZsQy d5sgx8YoKUmvK3NjSDKlT OycRgb3TDHhBLD2cHZ4kW 5rUWGyUBiuv2M6cQR5H9N motYhdx4hr4wu EPYdNMtnW90lqVZdw0E0R ZXmnJY7EUKekEzcCyCymX 93Oyc+IHOmnAzns1GzFie mw0zvo6zlpCi7 GkJlEBHntoHdkLmyCWK9o 2IpSk45N17nZRqnOWRdON VjMNPsOLGhsRvuwj7maH2 wIi8+PGNvbCB3 rLQ7bJ1uNXXdOvR2IHwiF 822RgDorCPwAeiqa7uqa0 yzjRw1SuFvBZHojiJlbMb fVQN2s3YwRk55 D63cJWejTTCfFAQlVYStS ROwpUmiit1kjB7xPv0+PC 8bo2zexa05mC21wXO+PHR yJUP2eYsrWYcf QSOgsB0bCIliToA8FVDdB qFewL86bNCvVUuuDc4kzB xheKolDS7xDNXdpgneb80 5FhBbc8hfWVHm vTJhUEzeODG6O23lp6T1L BPnZTRxRFT9dGE2hV0wuG lnbjogbGVmdDsgdmVydGl jPEvlWRebR622 IHRvcDsnPlBhdGllbnQgT mBqUDb7Z6IjHsc6VQThcN muNT4zzYFdBXrqMt3cmGu afFpbXO5jLJKg zrkqk287BjZfd7syVQPky PYvTGmmACW7M49hr4M9CC EpRDJtLZJ8sHF9nQ7xnUa nbjogbGVmdDsg pnXevJupKDvpHZvsK201D HRvcDsnPkJpcnRoIERhdG X4BX90MF36kLUne4G7gXZ 5C8NtZULlcbbt fdhxyTY2DRDhRSUedB67T z7drNbhUl8rRTZwSVH7VB ZuoPLwA4UxlN6dRvFmBIC uCIDpC8RgvKYg AQxvF625NLkvGeQ0DBNev rBtD1TiFNVgwRybLgD5u6 S1Bp6QH1M2DQ52GB82bUG ue2F6aAW3V7Lp AMFplzmbzknskBO0QRDlA NNesU79Xu2liByiAe8iSI JaULZ2GJFwjNWmK7DgyK7 yOiAjMDAwMDAw I5LfbIMkBAtrU889ZAwjF bY2TEWnqqVtL4BfNBCjxV myTmD1c0X4Ki4UKHa5TP9 9YR60eDKwm5E5 oZC1P8ApWMPnowolraouv OO3JACaKYSfjN68Yz0umF hiHl7gSEYaRWP0PKHiyWZ tF8QasE7sQhTo SPFhORJiO3TalACxAGimH 052KAumXiR2YPUokyPmX3 VrFYCoeGvmDkK3f4M8Dr5 UJYHdRS64ZXA7 cTA1JG49EM42S3FwIveom GFibGU+PHRhYmxlIHdpZH RoPScxMDAlJyBzdHlsZT0 hCj2uJMXmTUCc hOhfsYKnRsKvg6djDNYaF BqrVV2fjPazF8RdbII7VQ Bvn0p3In68Z76fC5LwhEK +UBGfcWZ3bSO2 gR4pGwVtOjP2MQaxL812K sWebTPuDmeey4jvk3aafB t1TfQ9TJGrjdYkpHtyNTY 6p0JuZb15W11u IHdpZHRoPSIxNSUiIHZhb Xlorc3unR0iRn1+PGNvbC K8uRU8rU8wImUdAoE0OHv gR097XqDtrZMw Sylvo6jvt0tlhFo7DpHcO XXmgaXgsSqlLXI9d1ZyEk 05Q5OznKatr9PvNwf9vp6 6qBJjh5Q5zID0 D6DaLBSoxwjsfESxwNveU J8yJMYvjbdkUMJwlO7fOA SaW8z7GnWfEyC2BExpO7Q nfvW2YSAtuWLx NSqzSCL5R58ag8G8OSYlV QTcMLE9kKE7aN1mvXqsmb ogbGVmdDsgdmVydGljYWw vZBlbX763DQNg iUzwRFUsaR6qCQNsoFIlz TdrLG8dMBKzqftbUokFAJ ROIqhuGRLTKPdTIE81VT2 9kZUkq0W9lGF7 J2PnEVWxaaliggwbzTC0J CLoLWYrcJ26eOZyQYheSj 3ff6N0h392OKLcVOCcoD7 9Ao2zvFjiDTIt lLOAtK6gnfhrt2zttdawT jYmIRFxYUb4QKr8NTVfwG fbVyWvWFY9CbJ0ECM4jMV qaX6mhMgislma qR8wSok+MDcvMTkvMjAwM zwvdGQ+EWFlPKD2zPdxCC ijJOTdbH6jFFNaP5b8EaI zNnH9FPasT7Bu CJKgkiisEt80vV2xCdDaQ rP3PHjkW1LxooU1GTCxpC TcQNrfWJO6A83xu3A5GUH nDQYoICR8bKZ4 qS8evXgfokzzwMAykCwyu fBuoLlhBCinRXswN857HH OpcBteBbW6SLvbXLAvTW6 3HI41jZZhd7U3 pRZ2B1RhCPSsmmogpdapw LK3XDOhPYXobQ82uLYuLN knVh0bc6H9o447IJCtVJN pwC69Br1pgMio MOSbuETKaL6grzaax6fam umqHlMyTNFxWTf5CNe8YM UrqLamGeIgGAM4MpD0YUF 1aJPxbO5msSnw yxjrqZ8rRio+TWFsZTwvd GQ+QQHpROF5tDxtEGojQV MvaV1qCJXyC2e0OqQkGyI 5HUznS7OqSXVx ojyyFz56wB7eVaDpFbZ6W PejL5SvjyB9NDYmpSDyCV teCUE2Z00gq8Y5OOYfWWS zIFR4pFL4oK5z bGlnbjogbGVmdDsgdmVyd HeqKNmfICpiG752IPEefY cfEw27rGIkoBpgsoV3O7S kPjwvdHI+PC90 CQFrVX87eQUecTUyn1spj Ag3LuHmMTNsZNV2fJxgWO kkj1PwQIUkB28ptPTtq5S 6IGNvbGxhcHNl JiGzdPV5mQ5eSIonsdrdf 3ypohunFgwkx3jgqw45aG 38A94ySYzzDWJhUMEjOTS gCFTdmLvvff5s eZ1nAw8+MUPwjIQ5tRV1p B1fZeRpTrV9WAodR048Kl KdcGVtGyuur2fhr5ioxPp 9IjIwJSIgdmFs jNlmCFP0x6NpIf31B80vT HdpZHRoPSIyMCUiIHZhbG wkfy4ifG1nWo9+MN9ph1f hqa51wA29sYL+ ADRcNDF0gUyeCNukTSWqk W3eTEfqIjS3XKSsZjBxcI 24nJFzDZrtRx3ueQvlpSv pQX3gJDIpzuuy k940DrXar6pzNIIdwPVaH UdwBVE3D05xy9W2ILYlZM XzNGO3rRM9qW2ojWmrucx gbGVmdDsgdmVy jHjlSNpfLUweA228QHEyg QngReItbLMaO7fwctACLC 1lOjwvdGQ+PVCnSUT0tTr eNVhuCBZsiF9x UCJxN3o1SdJgZzQ8EDrlD 8GzpfA9SCZegJKmEUSjdN OYwB1eurzdy5hlwpotPzF bZXFxUGh2VEc5 NYLckSzpPjDeIRW0TvK1W FK7nMOhtA2gkQvpjkfupO 9wOyc+RklOOjwvdGQ+PHR uCYT6cNcjAJse ZXGuiU3yQUKlP8y3KdBvT pE2BTtaJ3UnbcO0AXWdfE OuBIZjkOQBmT5grbqpy3r vcjogIzAwMDAw GLx0INy7HLEcnWqxPvVfT SG3UiK2ESU4tQBstI3suQ vvqvqesR5iRir+TVJOOjw vdGQ+PHRkIHN0 qVfdNRfqSUXluA6bGWGaF 1h7YhRoScE1GEazR5Ahbv R6PDQsdLIlOFHnhSFWrV0 gtgiza5qayidf WrHlAAWmETz9EAx7HPSse EbaUqHcIKY5FpN3ODE0jE LknG5owErqggmsiS5tHae +HHP5TYF9QT27 JC43P2DzBdoxfTAmwFB+P HRhYmxlIHdpZHRoPScxMD CvFuZwxEbcDB3dBm9qQZP yLWNvbGxhcHNl OiBj (more content not included)... Normal [facility] RF Quanton 04-23-2022 Rheumatoid factor Qn [IU]/mL Invalid Interpretation Code <14.0 [facility] Comment on above: Result Comment: Perf ormed at: [facility] [address] [id number] PhD Missael Oneal Performed By: #### 2 745019, 0643720, 23050885, 19218394, 3977945, 71780612, 8618899, 80963662 #### [facility] [address] [place] [address] BMPon 04-19-2022 Anion gap [Moles/Vol] 12 mmol/L Normal 6-16 [facility] Comment on above: Performed By: #### 2 449876, 2129267, 90360954, 25885882, 6966366, 87426424, 5345445, 42954983 #### [facility] [address] [place] [address] Calcium [Mass/Vol] 9.7 mg/dL Normal 8.9-11.1 [facility] Comment on above: Performed By: #### 2 135497, 1991359, 85134503, 05760636, 0299383, 81955146, 3055821, 57516924 #### [facility] [address] [place] [address] Chloride [Moles/Vol] 99 mmol/L Low 101-111 [facility] Comment on above: Performed By: #### 2 354087, 9773417, 51851482, 99462520, 5594893, 30140453, 7983808, 29131601 #### [facility] [address] [place] [address] CO2 [Moles/Vol] 32 mmol/L High 21-31 [facility] Comment on above: Performed By: #### 2 426843, 7809797, 10146366, 11758550, 0654101, 07218493, 1888154, 82111869 #### [facility] [address] [place] [address] Creatinine [Mass/Vol] 0.8 mg/dL Normal 0.5-1.3 [facility] Comment on above: Performed By: #### 2 832580, 7977683, 80362367, 18769767, 4375918, 12581014, 4803793, 45910399 #### [facility] [address] [place] [address] Glucose [Mass/Vol] 92 mg/dL Normal 55-199 [facility] Comment on above: Result Comment: If t his glucose result represents a fasting glucose, interpretation should refer to the following reference range: 55-99 mg/dL Performed By: #### 2 957059, 2587009, 20872895, 04640903, 3339944, 19115112, 5424303, 58832357 #### [facility] [address] [place] [address] Potassium [Moles/Vol] 4.0 mmol/L Normal 3.5-5.3 [facility] Comment on above: Performed By: #### 2 858817, 5404743, 42565065, 25265269, 9482575, 34041681, 6411273, 14057658 #### [facility] [address] [place] [address] Sodium [Moles/Vol] 139 mmol/L Normal 135-145 [facility] Comment on above: Performed By: #### 2 856694, 7974954, 17455563, 76171516, 9191952, 66828064, 7753260, 96814563 #### [facility] [address] [place] [address] Urea nitrogen [Mass/Vol] 13 mg/dL Normal 5-21 [facility] Comment on above: Performed By: #### 2 722818, 1150711, 66596637, 33842781, 8037006, 51264243, 9755661, 48094680 #### [facility] [address] [place] [address] Urea nitrogen/Creatinine [Mass ratio] 16 No Units Normal 10-20 [facility] Comment on above: Performed By: #### 2 889345, 3106145, 41962575, 45551663, 7943890, 88826131, 8698567, 26604195 #### [facility] [address] [place] [address] CBC w/Indiceson 04-19-2022 Erythrocyte distribution width (RBC) [Ratio] 13.6 % Normal 10.9-14.2 [facility] Comment on above: Performed By: #### 2 208724, 3473759, 85670500, 31858821, 3722307, 33367860, 1882014, 69442361 #### [facility] [address] [place] [address] Hematocrit (Bld) [Volume fraction] 46.2 % Normal 37.7-49.0 [facility] Comment on above: Performed By: #### 2 256568, 0582848, 74334385, 40396855, 6387346, 25000532, 0737709, 63544669 #### [facility] [address] [place] [address] Hemoglobin (Bld) [Mass/Vol] 15.9 g/dL Normal 13.5-17.5 [facility] Comment on above: Performed By: #### 2 498307, 9241578, 17943811, 91311650, 0222325, 58480136, 8469536, 02687537 #### [facility] [address] [place] [address] MCH (RBC) [Entitic mass] 29.8 pg Normal 27.0-34.0 [facility] Comment on above: Performed By: #### 2 111373, 8372158, 57035117, 41307647, 5321784, 09276279, 0102894, 81627146 #### [facility] [address] [place], [place] [address] MCHC (RBC) [Mass/Vol] 34.4 g/dL Normal 31.4-36.0 [facility] Comment on above: Performed By: #### 2 008226, 8409784, 81026452, 32674718, 2598684, 05519148, 0941771, 93717938 #### [facility] [address] [place] [address] MCV (RBC) [Entitic vol] 86.5 fL Normal 80.0-100.0 [facility] Comment on above: Performed By: #### 2 219841, 0427956, 21446111, 67598920, 5741879, 39737618, 3792115, 53983589 #### [facility] [address] [place] [address] Platelet mean volume (Bld) [Entitic vol] 8.6 fL Normal 6.4-10.8 [facility] Comment on above: Performed By: #### 2 147527, 1729786, 84001359, 86913942, 9934083, 61834848, 6140462, 22215615 #### [facility] [address] [place] [address] Platelets (Bld) [#/Vol] 245.0 E9/L Normal 150.0-500.0 [facility] Comment on above: Performed By: #### 2 586916, 5519871, 49297456, 72928225, 1713647, 38369465, 3766003, 36411107 #### [facility] [address] [place] [address] RBC (Bld) [#/Vol] 5.3 E12/L Normal 4.3-5.9 [facility] Comment on above: Performed By: #### 2 805959, 6524044, 26462810, 57269268, 5765488, 09366734, 6793656, 77026923 #### [facility] [address] [place] [address] WBC corrected for nucl RBC Auto (Bld) [#/Vol] 4.9 E9/L Normal 4.0-11.0 [facility] Comment on above: Performed By: #### 2 423049, 1161503, 88915130, 81793955, 0042506, 44511314, 9683358, 12702690 #### [facility] [address] [place] [address] CHEMISTRYOrdered By: SYSTEM SYSTEM on 04-19-2022 Anion [...] Remisol CRP [Mass/Vol] 0.7 mg/dL Normal <=1.9mg/dL [facility] Remis ol GFR/1.73 sq M.predicted among blacks MDRD (S/P/Bld) [Vol rate/Area] mL/min/1.73 m2 Normal >=59mL/min/ 1.73 m2 [facility] Chem S GFR/1.73 sq M.predicted among non-blacks MDRD (S/P/Bld) [Vol rate/Area] mL/min/1.73 m2 Normal >=59mL/min/ 1.73 m2 [facility] Chem S Glucose [Mass/Vol] 92 mg/dL Normal 55 - 199 mg/dL [facility] Remisol Potassium [Moles/Vol] 4.0 mmol/L Normal 3.5 - 5.3 mmol/L [facility] Remisol Sodium [Moles/Vol] 139 mmol/L Normal 135 - 145 mmol/L [facility] Remisol Urate [Mass/Vol] 5.1 mg/dL Normal 2.2 - 7.4 mg/dL [facility] Remisol Urea nitrogen [Mass/Vol] 13 mg/dL Normal 5 - 21 mg/dL [facility] Remisol Urea nitrogen/Creatinine [Mass ratio] 16 mg/mg Normal 10 - 20 [facility] Remisol CRPon 04-19-2022 CRP [Mass/Vol] 0.7 mg/dL Normal <=1.9 [facility] Comment on above: Performed By: #### 2 783320, 1800107, 33648254, 18819996, 3139730, 69796120, 6309795, 00996824 #### [facility] [address] [place] [address] Consent for Treatmenton Consent for Treatment [id number]#1 .00CD:[address] [facility] HEMATOLOGYOrdered By: Una Bhatti on 04-19-2022 Erythrocyte distribution width (RBC) [Ratio] 13.6 % Normal 10.9 - 14.2 % [facility] HemeAutoSS Hematocrit (Bld) [Volume fraction] 46.2 % Normal 37.7 - 49.0 % [facility] Hemoglobin (Bld) [Mass/Vol] 15.9 g/dL Normal 13.5 - 17.5 gm/dL FT [facility] MCH (RBC) [Entitic mass] 29.8 pg Normal 27.0 - 34.0 pg FT [facility] MCHC (RBC) [Mass/Vol] 34.4 g/dL Normal 31.4 - 36.0 gm/dL [facility] [employer] MCV (RBC) [Entitic vol] 86.5 fL Normal 80.0 - 100.0 fL FT [facility] Platelet mean volume (Bld) [Entitic vol] 8.6 fL Normal 6.4 - 10.8 fL [facility] [employer] Platelets (Bld) [#/Vol] 245.0 E9/L Normal 150. 0 - 500.0 E9/L [facility] [employer] RBC (Bld) [#/Vol] 5.3 E12/L Normal 4.3 - 5.9 E12/L [facility] [employer] Sed Rate Automated 6 mm/h Normal 0 - 19 mm/hr [facility] [employer] WBC corrected for nucl RBC Auto (Bld) [#/Vol] 4.9 E9/L Normal 4.0 - 11.0 E9/L [facility] [employer] Physician Orderon 04-19-2022 Physician Order [id number]# 1.00CD:[address] [facility] Sed Rate Automatedon 023 Sed Rate Automated 6 mm/hr Normal 0-19 [facility] Comment on above: Performed By: #### 2 573448, 9516402, 14188451, 61124896, 6536921, 74996925, 3539855, 16936043 #### [facility] [address] [place] [address] Uric Acidon 04-19-2022 Urate [Mass/Vol] 5.1 mg/dL Normal 2.2-7.4 [facility] Comment on above: Performed By: #### 2 107930, 6422781, 90062604, 53971684, 1055588, 26142708, 9439176, 17108511 #### [facility] [address] [place] [address] eGFRon 04-19-2022 GFR/1.73 sq M.predicted among blacks MDRD (S/P/Bld) [Vol rate/Area] mL/min/{1.73_m2} Normal >=59 [facility] Comment on above: Order Comment: Order added by Discern Expert. Result Comment: eGFR is race adjusted. AA=. Performed By: #### 2 [id number], [id number], [id number], [id number], [id number], [id number], [id number], [id number] #### [facility] [address] [place] [address] GFR/1.73 sq M.predicted among non-blacks MDRD (S/P/Bld) [Vol rate/Area] mL/min/{1.73_m2} Normal >=59 [facility] Comment on above: Order Comment: Order added by Discern Expert. Result Comment: Flask [employer] anni kidney disease could be indicated at eGFR's of less than 60 mL/min/1.73m2. Kidney failure is indicated at less than 15 mL/min/1.73m2. Performed By: #### 2 [id number], [id number], [id number], [id number], [id number], [id number], [id number], [id number] #### [facility] [address] [place] [address] ACETAMINOPHENon 01-28-2022 Acetaminophen [Mass/Vol] ug/mL Critically low 10.0-30.0 [facility] Comment on above: Performed By: #### E TH, SALYC, ACET #### [facility] [address], [place] [address] Dr. Annabella Lara CBC AUTO DIFFon 01-28-2022 BASO # 0.0 103/ul Normal 0.0-0.1 [facility] Comment on above: Performed By: #### C BC #### [facility] [address], [place] [address] Dr. Annabella Lara Basophils/100 WBC (Bld) 0.3 % Normal 0.2-2.0 [facility] Comment on above: Performed By: #### C BC #### [facility] [address] [place] [address] [address] Annabella Lara EO # 0.1 103/ul Normal 0.0-0.7 [facility] Comment on above: Performed By: #### C BC #### [facility] [address] [place] [address] Dr. Annabella Lara Eosinophils/100 WBC (Bld) 2.0 % Normal 0.9-7.0 [facility] Comment on above: Performed By: #### C BC #### [facility] [address] [place] [address] Dr. Annabella Lara Erythrocyte distribution width (RBC) [Ratio] 12.8 % Normal 11.0-15.0 [facility] Comment on above: Performed By: #### C BC #### [facility] [address] [place] [address] Dr. Annabella Lara Hematocrit (Bld) [Volume fraction] 46.9 % Normal 42.0-54.0 [facility] Comment on above: Performed By: #### C BC #### [facility] [address] [place] [address] Dr. Annabella Lara Hemoglobin (Bld) [Mass/Vol] 16.1 g/dL Normal 14.0-18.0 [facility] Comment on above: Performed By: #### C BC #### [facility] [address] [place] [address] Dr. Annabella Lara IG # 0.01 10e3/ul Normal 0.00-0.03 [facility] Comment on above: Performed By: #### C BC #### [facility] [address] [place] [address] Dr. Annabella Lara IG % 0.1 % Normal 0.0-0.5 [facility] Comment on above: Performed By: #### C BC #### [facility] [address] [place] [address] Dr. Annabella Lara LYMPH # 1.2 103/ul Normal 1.2-3.8 [facility] Comment on above: Performed By: #### C BC #### [facility] [address] [place] [address] Dr. Annabella Lara Lymphocytes/100 WBC (Bld) 17.3 % Critically low 20.5-60.0 [facility] Comment on above: Performed By: #### C BC #### [facility] [address] [place] [address] Dr. Annabella Lara MANUAL DIFF REQ NO Normal [facility] Comment on above: Performed By: #### C BC #### [facility] [address] [place] [address] Dr. Annabella Lara MCH (RBC) [Entitic mass] 29.1 pg Normal 25.9-34.0 [facility] Comment on above: Performed By: #### C BC #### [facility] [address] [place] [address] Dr. Annabella Lara MCHC (RBC) [Mass/Vol] 34.3 g/dL Normal 29.9-35.2 [facility] Comment on above: Performed By: #### C BC #### [facility] [address] [place] [address] Dr. Annabella Lara MCV (RBC) [Entitic vol] 84.8 fL Normal 80.0-94.0 [facility] Comment on above: Performed By: #### C BC #### [facility] [address] [place] [address] Dr. Annabella Lara MONO # 0.5 103/ul Normal 0.3-0.8 [facility] Comment on above: Performed By: #### C BC #### [facility] [address] [place] [address] Dr. Annabella Lara Monocytes/100 WBC (Bld) 6.4 % Normal 1.7-12.0 [facility] Comment on above: Performed By: #### C BC #### [facility] [address] [place] [address] Dr. Annabella Lara NEUT # 5.2 103/ul Normal 1.4-6.5 [facility] Comment on above: Performed By: #### C BC #### [facility] [address] [place] [address] Dr. Annabella Lara Neutrophils/100 WBC (Bld) 73.9 % Normal 43.0-75.0 [facility] Comment on above: Performed By: #### C BC #### [facility] [address] [place] [address] Dr. Annabella Lara Platelet mean volume (Bld) [Entitic vol] 10.7 fL Normal 9.5-13.5 [facility] Comment on above: Performed By: #### C BC #### [facility] [address] [place] [address] Dr. Annabella Lara PLT 179 103/ul Normal 150-450 [facility] Comment on above: Performed By: #### C BC #### [facility] [address] [place] [address] Dr. Annabella Lara RBC 5.53 106/ul Normal 4.70-6.10 [facility] Comment on above: Performed By: #### C BC #### [facility] [address] [place] [address] Dr. Annabella Lara WBC 7.0 103/ul Normal 4.0-11.0 [facility] Comment on above: Performed By: #### C BC #### [facility] [address] [place] [address] Dr. Annabella Lara Covid-19 [facility]on [facility]-16 SARS-CoV-2 (COVID-19) RNA KATY+probe Ql (Unsp spec) Not detected Normal NOT DETECTED [facility] Comment on above: Result Comment: When [...] for this test is supported by the Director Operating of Health and Human Service's declaration that [...] be used). Performed By: #### C VDTBH ####[facility] [address] [address]Dr. Annabella Lara DRUG SCREEN RAPID (URINE)on 01-28-2022 AMP Negative Normal NEGATIVE [facility] Comment on above: Performed By: #### D RUGRPD ####[facility] [address] [address]Dr. Ngozigenna Lara BAR Negative Normal NEGATIVE [facility] Comment on above: Performed By: #### D RUGRPD ####[facility] [address] [place], [place] [address]Dr. Annabella [facility] BUP Negative Normal NEGATIVE [facility] Comment on above: Performed By: #### D RUGRPD ####[facility] [address] [place], [place] [address]Dr. Annabella Lara BZO Negative Normal NEGATIVE [facility] Comment on above: Performed By: #### D RUGRPD ####[facility] [address] [place], [place] [address]Dr. Annabella Lara DEQUAN Negative Normal NEGATIVE [facility] Comment on above: Performed By: #### D RUGRPD ####[facility] [address] [place], [place] [address]Dr. Annabella [facility] CUT-OFFS SEE BELOW Normal [facility] Comment on above: Result Comment: AMP (Amphetamine): 500ng/mL, BAR (Barbituates): 200 ng/mL, BZO (Benzodiazepines): 150 ng/mL, BUP (Buprenorphine): 10 ng/mL, DEQUAN (Cocaine): 150 ng/mL, mAMP (Methamphetamine): 500 ng/mL, MTD (Methadone): 200 ng/mL, OPI (Opiates): 100 ng/mL, OXY (Oxycodone): 100 ng/mL, PCP (Phencyclidine): 25 ng/mL, PPX (Propoxyphene): 300 ng/mL, THC (Cannabinoids): 50 ng/mL, TCA (Trycyclic Antidepressants): 300 ng/mL Performed By: #### D RUGRPD ####[facility] [address] [place], [place] [address]Dr. Annabella Lara DRUG CUT HEADER DRUG CLASS TEST SYSTEM CUT-OFF CONCENTRATIONS ARE FOLLOWS: Normal [facility] Comment on above: Performed By: #### D RUGRPD ####[facility] [address] [place], [place] [address]Dr. Annabella Lara mAMP Negative Normal NEGATIVE [facility] Comment on above: Performed By: #### D RUGRPD ####[facility] [address] [place], [place] [address]Dr. Annabella Lara MTD Negative Normal NEGATIVE [facility] Comment on above: Performed By: #### D RUGRPD ####[facility] [address] [place], [place] [address]Dr. Annabella Lara OPI Negative Normal NEGATIVE [facility] Comment on above: Performed By: #### D RUGRPD ####[facility] [address] [place], [place] [address]Dr. Annabella Lara OXY Negative Normal NEGATIVE [facility] Comment on above: Performed By: #### D RUGRPD ####[facility] [address] [place], [place] [address]Dr. Annabella Lara PCP Negative Normal NEGATIVE [facility] Comment on above: Performed By: #### D RUGRPD ####[facility] [address] [place], [place] [address]Dr. Annabella Lara PPX Negative Normal NEGATIVE [facility] Comment on above: Performed By: #### D RUGRPD ####[facility] [address] [place], [place] [address]Dr. Annabella Lara TCA Negative Normal NEGATIVE [facility] Comment on above: Performed By: #### D RUGRPD ####[facility] [address] [place], [place] [address]Dr. Annabella Lara THC Positive Abnormal NEGATIVE [facility] Comment on above: Performed By: #### D RUGRPD ####[facility] [address] [address]Dr. Annabella Lara ETHANOL (BLD ALC)on 01-29-20 22 ALC NOTE NOTE: 80 mg/dl is th e legal limit for a blood alcohol level Normal [facility] Comment on above: Performed By: #### E TH, ANDRES, ACET #### [facility] [address] [address] [address] Annabella Lara Ethanol [Mass/Vol] mg/dL Normal [facility] Comment on above: Performed By: #### E TH, ANDRES, ACET #### [facility] [address] [address] [address] Annabella Lara PROF 14(COMP METB)on 022 Albumin [Mass/Vol] 4.2 g/dL Normal 3.4-5.0 [facility] Comment on above: Performed By: #### C MP #### [facility] [address] [place] [address] Dr. Annabella Lara Albumin/Globulin [Mass ratio] 1.0 {ratio} Normal [facility] Comment on above: Performed By: #### C MP #### [facility] [address] [place] [address] Dr. Annabella Lara ALP [Catalytic activity/Vol] 82 U/L Normal 46-116 [facility] Comment on above: Performed By: #### C MP #### [facility] [address] [address] [address] Annabella Lara ALT [Catalytic activity/Vol] 31 U/L Normal 16-63 [facility] Comment on above: Performed By: #### C MP #### [facility] [address] [address] [address] Annabella Lara Anion gap [Moles/Vol] 6.9 mmol/L Normal [facility] Comment on above: Performed By: #### C MP #### [facility] [address] [place] [address] Dr. Annabella Lara AST [Catalytic activity/Vol] 24 U/L Normal 15-37 [facility] Comment on above: Performed By: #### C MP #### [facility] [address] [address] [address] Annabella Lara Bilirubin [Mass/Vol] 0.2 mg/dL Normal 0.2-1.0 [facility] Comment on above: Performed By: #### C MP #### [facility] [address] [address] [address] Annabella Lara Calcium [Mass/Vol] 9.2 mg/dL Normal 8.5-10.1 [facility] Comment on above: Performed By: #### C MP #### [facility] [address] [place] [address] Dr. Annabella Lara Chloride [Moles/Vol] 103 mmol/L Normal 98-107 [facility] Comment on above: Performed By: #### C MP #### [facility] [address] [place] [address] Dr. Annabella Lara CO2 [Moles/Vol] 30.5 mmol/L Normal 21.0-32.0 [facility] Comment on above: Performed By: #### C MP #### [facility] [address] [place] [address] Dr. Annabella Lara Creatinine [Mass/Vol] 0.80 mg/dL Normal 0.70-1.30 [facility] Comment on above: Performed By: #### C MP #### [facility] [address] [place] [address] Dr. Annabella Lara EGFR-AF TAIWANESE >60 Normal >=60 [facility] Comment on above: Performed By: #### C MP #### [facility] [address] [place] [address] Dr. Annabella Lara EGFR-NON AF TAIWANESE >60 Normal >=60 [facility] Comment on above: Performed By: #### C MP #### [facility] [address] [place] [address] Dr. Annabella Lara Globulin (S) [Mass/Vol] 4.0 g/dL Normal T [facility] Comment on above: Performed By: #### C MP #### [facility] [address] [place] [address] Dr. Annabella Lara Glucose [Mass/Vol] 84 mg/dL Normal 74-106 [facility] Comment on above: Performed By: #### C MP #### [facility] [address] [address] [address] Annabella Lara Potassium [Moles/Vol] 4.4 mmol/L Normal 3.5-5.1 [facility] Comment on above: Performed By: #### C MP #### [facility] [address] [address] [address] Annabella Lara Protein [Mass/Vol] 8.2 g/dL Normal 6.4-8.2 [facility] Comment on above: Performed By: #### C MP #### [facility] [address] [address] [address] Annabella Lara Sodium [Moles/Vol] 136 mmol/L Normal 136-145 [facility] Comment on above: Performed By: #### C MP #### [facility] [address] [address] [address] Annabella Lara Urea nitrogen [Mass/Vol] 12.0 mg/dL Normal 6.4-19.3 [facility] Comment on above: Performed By: #### C MP #### [facility] [address] [address] [address] Annabella Lara Urea nitrogen/Creatinine [Mass ratio] 15.0 mg/mg Normal [facility] Comment on above: Performed By: #### C MP #### [facility] [address] [address] [address] Annabella Lara SALICYLATEon 01-28-2022 SALICYLATE <2.8 Normal <=19.9 [facility] Comment on above: Performed By: #### E ANDRES GORDON, ACET #### [facility] [address] [address] [address] Annabella Lara Vital Signs Date Time Vital Sign Value Performing Clinician Facility 03-13-2023 07:30-0500 Body temperature 98.2 [degF] [facility] Darin Montoya Work Phone: [facility] 03-13-2023 07:30-0500 Diastolic blood pressure 73 mm[Hg] [facility] Darin Shammo Work Phone: [facility] 03-13-2023 07:30-0500 Heart rate 87 /min [facility] Darin Shammo Work Phone: [facility] 03-13-2023 07:30-0500 Respiratory rate 16 /min [facility] Darin Shammo Work Phone: [facility] 03-13-2023 07:30-0500 SaO2% (BldA) [Mass fraction] 97 % [facility] Darin Shammo Work Phone: [facility] 03-13-2023 07:30-0500 Systolic blood pressure 104 mm[Hg] [facility] Darin Shammo Work Phone: [facility] 03-11-2023 08:53-0500 Body weight 21.7 kg [facility] Darin Shammo Work Phone: [facility] 03-10-2023 10:39-0500 Body height 172.72 cm [facility] Darin Shammo Work Phone: [facility] 2022 07:30-0400 Body temperature 97.4 [degF] [facility] Darin Shammo Work Phone: [facility] 2022 07:30-0400 Diastolic blood pressure 85 mm[Hg] [facility] Darin Shammo Work Phone: [facility] 2022 07:30-0400 Heart rate 114 /min [facility] Darin Shammo Work Phone: [facility] 2022 07:30-0400 SaO2% (BldA) [Mass fraction] 100 % [facility] Darin Shammo Work Phone: [facility] 2022 07:30-0400 Systolic blood pressure 126 mm[Hg] [facility] Darin Shammo Work Phone: [facility] 10-02-2022 20:12-0400 Respiratory rate 16 /min [facility] Darin Shammo Work Phone: [facility] 10-01-2022 15:18-0400 Body height 172.72 cm [facility] Darin Shammo Work Phone: [facility] 10-01-2022 09:00-0400 Body weight 70.76 kg [facility] Darin Shammo Work Phone: [facility] 08-05-2022 15:21-0400 Diastolic blood pressure 70 mm[Hg] [facility] Darin Shammo Work Phone: [facility] 08-05-2022 15:21-0400 Heart rate 79 /min [facility] Darin Shammo Work Phone: [facility] 08-05-2022 15:21-0400 Respiratory rate 16 /min [facility] Darin Shammo Work Phone: [facility] 08-05-2022 15:21-0400 SaO2% (BldA) [Mass fraction] 98 % [facility] Darin Shammo Work Phone: [facility] 08-05-2022 15:21-0400 Systolic blood pressure 111 mm[Hg] [facility] Darin Shammo Work Phone: [facility] 08-05-2022 07:30-0400 Body temperature 97.6 [degF] [facility] Darin Shammo Work Phone: [facility] 08-03-2022 12:02-0400 Body height 170.18 cm [facility] Darin Shammo Work Phone: [facility] 08-03-2022 12:02-0400 Body weight 72.57 kg [facility] Darin Shammo Work Phone: [facility] 06-13-2022 07:30-0400 Body temperature 98 [degF] [facility] Darin Shammo Work Phone: [facility] 06-13-2022 07:30-0400 Diastolic blood pressure 68 mm[Hg] [facility] Darin Shammo Work Phone: [facility] 06-13-2022 07:30-0400 Heart rate 76 /min [facility] Darin Shammo Work Phone: [facility] 06-13-2022 07:30-0400 Respiratory rate 18 /min [facility] Darin Shammo Work Phone: [facility] 06-13-2022 07:30-0400 SaO2% (BldA) [Mass fraction] 96 % [facility] Darin Shammo Work Phone: [facility] 06-13-2022 07:30-0400 Systolic blood pressure 112 mm[Hg] [facility] Dairn Shammo Work Phone: [facility] 06-12-2022 20:00-0400 Body height 170.18 cm [facility] Darin Shammo Work Phone: [facility] 06-12-2022 20:00-0400 Body weight 68.94 kg [facility] Darin Shammo Work Phone: [facility] 05-22-2022 13:15-0500 Body height 170.2 cm Cherise Ramirez DMD, MD Work Phone: [facility] 05-22-2022 13:15-0500 Body mass index (BMI) [Ratio] 23.49 kg/m2 Cherise Ramirez DMD, MD Work Phone: [facility] 05-22-2022 13:15-0500 Body weight 68.04 kg Cherise Ramirez DMD, MD Work Phone: [facility] Encounters Encounter Date Encounter Type Care Provider Facility Start: 12-06-2023 End: 12-06-2023 ambulatory ARTI WOODRUFF Not Available Start: 11-29-2023 End: 11-29-2023 ambulatory ARTI WOODRUFF Not Available Start: 11-26-2023 End: 11-26-2023 ambulatory MARYELLEN YANG Not Available Start: 11-22-2023 ambulatory UNKNOWN PROVIDER Facili ty:[facility] Start: 11-15-2023 End: 11-15-2023 ambulatory JUSTUS SUTTON Not Available Start: 11-13-2023 ambulatory UNKNOWN PROVIDER Facili ty:[facility] Start: 11-12-2023 End: 11-12-2023 ambulatory JESUS STEINER Not Available Start: 07-24-2023 End: 07-26-2023 ambulatory [facility] Start: 07-24-2023 End: 07-26-2023 Patient encounter procedure Onur Davila DDS Work Phone: [facility] Start: 07-03-2023 End: 08-17-[address] [facility] Start: 07-03-2023 End: 07-03-[address] [facility] Start: 05-31-2023 End: 06-03-2023 ambulatory UNKNOWN PROVIDER Facility:[facility] Start: 04-17-2023 ambulatory UNKNOWN PROVIDER Facili ty:[facility] Start: 03-09-2023 End: 03-13-2023 Evaluation and management of inpatient Shubham Timur Facility:[facility] Start: 03-09-2023 End: 03-13-2023 Evaluation and management of inpatient [facility] Darin Shammo Work Phone: [facility] Work Phone: Start: 02-22-2023 End: 02-25-2023 Patient encounter procedure Onur Davila DDS Work Phone: [facility] Start: 02-22-2023 End: 02-25-2023 ambulatory UNKNOWN PROVIDER [facility] Start: 02-06-2023 End: 02-11-2023 ambulatory UNKNOWN PROVIDER [facility] Start: 02-06-2023 End: 02-11-2023 Patient encounter procedure nOur Davila DDS Work Phone: [facility] Start: 01-21-2023 ambulatory UNKNOWN PROVIDER Facili ty:[facility] Start: 12-28-2022 Telephone encounter Ana Mjulita alondramarinamiguel DDS Work Phone: [facility] Comment on above: Dental Start: 11-16-2022 End: 11-20-2022 Patient encounter procedure Alfonzo Nelsonmarinamiguel DDS Work Phone: [facility] Start: 10-29-2022 End: 11-01-2022 Patient encounter procedure Alfonzo Nelsonmarinamiguel DDS Work Phone: [facility] Comment on above: Poor oral hygiene (P rimary Dx) Start: 10-11-2022 End: 10-15-2022 Patient encounter procedure Javed Mendez DDS Work Phone: [facility] Start: 10-08-2022 Orders Only Erum rivera DDS Work Phone: [facility] Start: 10-07-2022 Letter encounter Erum matthews DDS Work Phone: [facility] Start: 09-28-2022 End: 2022 Evaluation and management of inpatient Shubham Timur Facility:[facility] Start: 09-28-2022 End: 2022 Evaluation and management of inpatient [facility] Darin Shammo Work Phone: [facility] Work Phone: Start: 09-28-2022 ambulatory Darin T Shammo Facility :[facility] Start: 09-27-2022 End: 10-02-2022 Patient encounter procedure Alfonzo Nelsonmarinamiguel DDS Work Phone: [facility] Start: 09-05-2022 End: 09-10-2022 Patient encounter procedure Erma Riley DDS Work Phone: [facility] Start: 08-03-2022 End: 08-05-2022 Evaluation and management of inpatient Shubham Ding Facility:[facility] Start: 08-03-2022 Registered Recurring [facility] Jane sergey Montoya Work Phone: [facility] Start: 08-03-2022 End: 08-05-2022 Evaluation and management of inpatient [facility] Darin Shammo Work Phone: [facility] Work Phone: Start: 07-16-2022 End: 07-18-2022 Patient encounter procedure Esther Menard DMD Work Phone: [facility] Start: 07-05-2022 End: 07-05-2022 Patient encounter procedure Erum Laboy DDS Work Phone: [facility] Comment on above: Arrived Start: 06-18-2022 End: 06-18-2022 Telemedicine consultation with patient Cherise Ramirez DMD, MD Work Phone: [facility] Comment on above: Myofascial pain (Asya ashley Dx) Start: 06-14-2022 End: 07-11-2022 ambulatory [place] Start: 06-14-2022 End: 06-14-2022 Office outpatient new 45 minutes Erum Laboy DDS Work Phone: [facility] Comment on above: Myalgia of masticati on muscle (Primary Dx); Myalgia of muscle of neck; Arthralgia of right temporomandibular joint Start: 06-12-2022 End: 06-13-2022 Evaluation and management of inpatient Darin T Shammo Facility:[facility] Start: 06-12-2022 End: 06-13-2022 Evaluation and management of inpatient [facility] Darin Shammo Work Phone: [facility] Work Phone: Start: 06-12-2022 End: 06-12-2022 ambulatory JOSÉ MANUEL MCKEON . Facility: Start: 06-08-2022 Clinical Support Shantal Duarte [facility] Start: 06-08-2022 End: 06-08-2022 Follow-up encounter Cherise Ramirez DMD, MD [facility] Start: 06-08-2022 End: 06-08-2022 Patient encounter procedure Cherise Ramirez DMD, MD Work Phone: [facility] Comment on above: Myofascial pain (Asya ashley Dx) Start: 06-05-2022 Telephone encounter Cherise gomes DMD, MD Work Phone: [facility] Comment on above: Urgent TMJ Symptoms Start: 06-04-2022 End: 06-05-2022 ambulatory DARIN SHAMMO Facility:[facility] Start: 06-04-2022 End: 06-04-2022 ambulatory DARIN SHAMMO Facility:[facility] Start: 05-28-2022 End: 05-28-[address] JUAN MADRIGAL Facility:[facility] Start: 05-22-2022 End: 05-22-2022 Patient encounter procedure Cherise Ramirez DMD, MD Work Phone: [facility] Comment on above: Myofascial pain (Asya ashley Dx) Start: 04-19-2022 End: 04-20-2022 ambulatory Chu Muñoz Facility:[facility] Start: 04-19-2022 End: 04-19-2022 Patient encounter procedure Chu Muñoz [facility] Start: 01-28-2022 End: 01-28-2022 ambulatory PORTER HICKS Facility: Procedures Date Procedure Procedure Detail Performing Clinician Start: 05-22-2022 panoramic radiograph ic image Sam Fei ALVAREZ Work Phone: Plan of Treatment Date Care Activity Detail Author Start: 2052 Shingles (RZV) Vacci ne (1 of 2) Shingles (RZV) Vaccine (1 of 2) [facility] Start: 08-19-2023 End: 08-19-2023 Patient encounter procedure 08/19/2023 8:30 AM EDT Procedure Visit [facility] [address] [place] [address] Onur Kapadia DDS [address] [place] [address] [facility] Start: 04-17-2023 End: 04-17-2023 Patient encounter procedure 04/17/2023 1:00 PM EST Procedure Visit [facility] [address] [place] [address] Onur Kapadia DDS [address] [place] [address] [facility] Start: 03-27-2023 End: 03-27-2023 Patient encounter procedure 03/27/2023 8:30 AM EST Procedure Visit [facility] [address] [place] [address] Onur Kapadia DDS [address] [place] [address] [facility] Start: 03-25-2023 End: 03-25-2023 Patient encounter procedure 03/25/2023 11:30 AM EST Procedure Visit [facility] [address] [place] [address] Alfonzo Mccord DDS [address] [place] [address] [facility] Start: 03-13-2023 [facility] Start: 03-11-2023 Administration of prophylactic treatment [facility] Start: 03-09-2023 Referral to Renal Dietitian [facility] Start: 03-09-[address] [facility] Start: 02-18-2023 End: 02-18-2023 Patient encounter procedure 02/18/2023 10:30 AM EST Procedure Visit [facility] [address] [place] [address] Alfonzo Mccord DDS [address] [place] [address] [facility] Start: 02-06-2023 End: 02-06-2023 Patient encounter procedure 02/06/2023 1:00 PM EST Procedure Visit [facility] [address] [place] [address] Vaughn Barrera DDS [address] [place] [address] [facility] Start: 01-21-2023 End: 01-21-2023 Patient encounter procedure 01/21/2023 10:30 AM EST Procedure Visit [facility] [address] [place] [address] Alfonzo Mccord DDS [address] [place] [id number] [facility] Start: 12-16-2022 Influenza vaccination Influenza Vacc ine (#1) [facility] Start: 11-30-2022 End: 11-30-2022 Patient encounter procedure [facility] Start: 11-16-2022 Influenza vaccination Influenza Vacc ine (#1) [facility] Start: 11-16-2022 End: 11-16-2022 Patient encounter procedure 11/16/2022 10:30 AM EDT Procedure Visit [facility] [address] [place] [address] Alfonzo Mccord DDS [address] [place] [address] [facility] Start: 10-25-2022 End: 10-25-2022 Patient encounter procedure 10/25/2022 11:00 AM EDT Procedure Visit [facility] [address] [place] [address] Alfonzo Mccord DDS [address] [place] [address] [facility] Start: 10-17-2022 End: 10-17-2022 Patient encounter procedure [facility] Start: 10-11-2022 End: 10-11-2022 Patient encounter procedure [facility] Start: 2022 [facility] Start: 09-28-2022 Administration of prophylactic treatment [facility] Start: 09-28-[address] [facility] Start: 09-05-2022 End: 09-05-2022 Patient encounter procedure 09/05/2022 Procedure Visit Dentistry hCristian Curtis, S [address] [place] [address] [facility] Start: 08-23-2022 End: 08-23-2022 Patient encounter procedure 08/23/2022 Procedure Visit Dentistry Christian Curtis S [address] [place] [address] [facility] Start: 08-05-2022 [facility] Start: 08-03-2022 Referral to Renal Dietitian [facility] Start: 08-03-[address] [facility] Start: 07-16-2022 End: 07-16-2022 Patient encounter procedure 07/16/2022 Procedure Visit Dentistry Erum Laboy, S [address] [place] [address] [facility] Start: 07-05-2022 End: 07-05-2022 Patient encounter procedure 07/05/2022 Procedure Visit Dentistry Erum Laboy DDS [address] [place] [address] [facility] Start: 06-29-2022 End: 06-29-2022 Patient encounter procedure 06/29/2022 Procedure Visit Dentistry Erum Laboy DDS [address] [place] [address] [facility] Start: 06-18-2022 End: 06-18-2022 Telemedicine consultation with patient [facility] Comment on above: Arrived Start: 06-14-2022 End: 06-14-2022 Patient encounter procedure 06/14/2022 Procedure Visit Dentistry Erum Laboy DDS [address] [place] [address] [facility] Start: 06-13-2022 [facility] Start: 06-12-[address] [facility] Start: 12-16-2021 Influenza vaccination Influenza Vacc ine (#1) [facility] Start: 2021 Hepatitis A (HAV) Vaccine (optional start 19+ years) Hepatitis A (HAV) Vaccine (optional start 19+ years) [facility] Start: 2020 Hepatitis C screening Hepatitis C An tibody [facility] Start: 2020 Tetanus + diphtheria + acellular pertussis vaccine (product) Tdap Booster [facility] Start: 2018 Meningococcal B (Bexsero,OMV) Vaccine (Optional,16-23 years) Meningococcal B (Bexsero,OMV) Vaccine (Optional,16-23 years) [facility] Start: 2018 Meningococcal B (Bexsero,OMV) Vaccine (Optional,16-23 years) (#1) Meningococcal B (Bexsero,OMV) Vaccine (Optional,16-23 years) (#1) [facility] Start: 2017 HIV screening HIV Test [facility] Start: 2013 Vaccination for jose rafael n papillomavirus [facility] Start: 2008 Pneumococcal vaccination [facility] Start: 04-05-2003 COVID-19 Vaccine (#1) COVID-19 Vacci ne (#1) [facility] Start: 2002 Hepatitis B vaccination Hepati tis B (HBV) Vaccine (1 of 3 - 3-dose series) [facility] Patient Education Depression, Ad ult (DC) [facility] Behavioral Health DC Instructions [facility] Work Phone: Patient referral [facility] Work Phone: Payers Date Payer Category Payer Self-pay [id number] 2021 Unknown [id number] 2002 Unknown [id number] 2.16.8 40.1.578334.3.579.2.727 2002 Unknown [id number] 2.16.84 0.1.476209.3.579.2.593 2002 Unknown [id number] 2.16.84 0.1.663445.3.579.2.593 2002 Unknown [id number] 2.16.84 0.1.996298.3.579.2.593 2002 Unknown [id number] 2.16.84 0.1.087365.3.579.2.593 2002 Unknown [id number] 2.16.84 0.1.624132.3.579.2.593 2002 Unknown [id number] 2.16.8 40.1.466104.3.579.2.1286 2002 Unknown [id number] 2.16.8 40.1.083886.3.579.2.1286 2002 Unknown [id number] 2.16.8 40.1.946094.3.579.2.1286 2002 Unknown [id number] 2.16. 840.1.819261.3.579.2.732 2002 Unknown [id number] 2.16. 840.1.388731.3.579.2.732 2002 Unknown [id number] 2.16. 840.1.039528.3.579.2.73 2002 Unknown [id number] 2.16. 840.1.215491.3.579.2.73 2002 Unknown [id number] 2.16. 840.1.748360.3.579.2.73 2002 Unknown [id number] 2.16. 840.1.306297.3.579.2.73 2002 Unknown [id number] 2.16. 840.1.028601.3.579.2. 2002 Unknown [id number] 2.16. 840.1.762049.3.579.2.732 2002 Unknown [id number] 2.16.84 0.1.469977.3.579.2.9 2002 Unknown [id number] 2.16.84 0.1.075208.3.579.2.9 2002 Unknown [id number] 2.16.84 0.1.794504.3.579.2.1258 2002 Unknown [id number] 2.16.84 0.1.285532.3.579.2.1258 2002 Unknown [id number] 2.16.84 0.1.388814.3.579.2.1259 1959 Unknown [id number] Unknown [id number] 2.16.8 40.1.435519.3.579.2.531 Unknown [id number] 2.16.8 40.1.473174.3.579.2.531 Unknown [id number] 2.16.8 40.1.202257.3.579.2.531 Unknown [id number] 2.16.8 40.1.559638.3.579.2.531 Unknown [id number] 2.16.8 40.1.640529.3.579.2.531 Social History Date Type Detail Facility Tobacco smoking status [facility] Start: 05-22-2022 Sex Assigned At Male F [facility] Start: 05-22-2022 Tobacco smoking status NHIS Smokes [...] smoking status NHIS Never smoked tobacco (finding) [facility] Start: 2002 Sex Assigned At Male F [facility] Start: 05-22-2022 History of Social function [facility] Goals Date Patient Goal Desired Activity /State Functional Status Date Assessment Result Facility 03-13-2023 Functional status Patient at Baseline [facility] Work Phone: 2022 Functional status Patient at Baseline [facility] Work Phone: 08-05-2022 Functional status Patient at Baseline [facility] Work Phone: 06-13-2022 Functional status Patient at Baseline [facility] Work Phone: Mental Status Date Assessment Result Facility 03-13-2023 Cognitive function Cognitive Sta tus Patient at Baseline [facility] Work Phone: 2022 Cognitive function Cognitive Sta tus Patient at Baseline [facility] Work Phone: 08-05-2022 Cognitive function Cognitive Sta tus Patient at Baseline [facility] Work Phone: 06-13-2022 Cognitive function Cognitive Sta tus Patient at Baseline [facility] Work Phone: Clinical Notes 04-19-2022 to 07-24-2023 Onur Kapadia DDS - 07/24/2023 1:08 PM EDT Note Date & Type Note Facility 07-24-2023 History of Presen t illness Narrative ----- Monday, July 24, 2023 at 4:26:32 PM ----- ----- Provider: [id number] Christa -- [place] ----- COMPOSITE BUDDHIST Patient is scheduled for Hindu on tooth #10-DL and 11-MDL. Reviewed Medical History. Pt exhibited the following conditions: No significant medical history Patient is ready for treatment. Topical Benzocaine gel applied at the injection site for 2 minutes. Administered 1 carpules of Lidocaine, 2% with Epinephrine 1:100,000,. Isolation achieved. Decay/existing yazidism removed, cavity prepared. Selectively etched enamel with 37% phosphoric acid, rinsed, and blot dried. OptiBond delaney applied and light-cured. Condensed packable composite shade a3 in light cured increments using Mylar strip and wedge. Finished with finishing burs, checked occlusion, verified proximal contacts and yazidism was polished. Rinsed and suctioned intraorally, advised patient to not eat until local anesthesia wears off. POST OPERATIVE Periapical (single) RADIOGRAPH TAKEN. 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 It has to be replace in his next appointment Next Visit: Restorative ----- Signed on July at 8:19:57 AM ----- ----- Provider: [id number] Tessa Troncoso DDS -- [place] ----- documented in this encounter [facility] 03-13-2023 Discharge summary Note Date/Time March 13, 2023 11:44am [facility] [address] [place] [address] Discharge Summary Signed Patient: Betty Rosenberg MR#: [id number] : 2000 Acct:[id number] Age/Sex: 22 / M Adm Date: 3 Loc: 1S Room: 6D9363-[address]: Shubham Ding MD Copies to: MD Darin Posada, [facility]~ Providers Date of Discharge: 03/13/23 Discharging Provider: [...] Living: With family 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 He tolerated [...] Instructions: Important Contact Information You can call [facility] at [phone] any time day or night if you have emergent questions or question regarding discharge instructions. If at any time you are feeling an increase inyour psychiatric symptoms, call your physician or behavioral healthcare provider. If any time you have thoughts of harming yourself or others contact one of the following: Call 88 (available 08/10) Crisis Text Line (available 08/10) text 4HOPE to [phone] [facility] Hope Line (available 8 a.m. Midnight) call [phone] ([phone]) Regular Diet No Activity Restrictions Instructions: Depression, Adult (DC), [facility] Behavioral Health DC Instructions Prescriptions: New bupropion HCl 150 mg Tablet Extended Release 24 Hr 150 mg PO QAM 30 Days Qty: 30 0RF Follow Up: [facility] [Other] - 03/19/23 12:45 pm (Psychiatry: Saturday03/19/23 at 12:45pm with REG Araya in [place] office. ) [facility] [Other] - 04/23/23 10:15 am (Counseling: Saturday04/23/23 at 10:15am with Angela Umaña in the [place] office. ) Darin Montoya, [facility] [Primary Care Provider] - (Please contact for any medical needs or concerns.) Documented By: Shubham Ding MD 03/13/23 1142 Signed By: <Electronically signed by Shubham Ding MD> 03/13/23 1145 [facility] Work Phone: 1(765) 497-609712-27-2023 Hospital Discharge instructions Additional Instructions Important Contact Information You can call [facility] at [phone] any time day or night if you have emergent questions or question regarding discharge instructions. If at any time you are feeling an increase in your psychiatric symptoms, call your physician or behavioral healthcare provider. If any time you have thoughts of harming yourself or others contact one of the following: Call 9-8-8 (available 08/10) Crisis Text Line (available 08/10) text 4HOPE to [phone] [facility] Hope Line (available 8 a.m. Midnight) call [phone] ([phone]) Regular Diet No Activity [facility] Work Phone: 1(327) 117-668612-26-2023 Progress note Author Shubham Ding [facility] March 12, 2023 12:38pm Note Date/Time March 12, 2023 12:38pm [facility] [address] [place] [address] Psychiatry Progress Note Signed Patient: Betty Rosenberg MR#: [id number] : 2000 Acct:[id number] Age/Sex: 22 / M Adm Date: 3 Loc: Room: [address] [place] [address] Type : ADM IN Attending Dr: Shubham [...] explained Documented By: Shubham Ding MD 03/12/23 1237 Signed By: <Electronically signed by Shubham Ding MD> 03/12/23 1238 [facility] Work Phone: 1(883) 333-140812-25-2023 Progress note Author Shubham Ding [facility] March 11, 2023 10:28am Note Date/Time March 11, 2023 10:28am [facility] [address] [place] [address] Psychiatry Progress Note Signed Patient: Betty Rosenberg MR#: [id number] : 2000 Acct:[id number] Age/Sex: 22 / M Adm Date: 3 Loc: Room: [address] [place] [address] Type : ADM IN Attending Dr: Shubham [...] signed by Shubham Ding MD> 03/11/23 1028 [facility] Work Phone: 1(593) 922-605512-24-2023 Progress note Author Shubham Ding [facility] March 10, 2023 10:19am Note Date/Time March 10, 2023 10:19am [facility] [address] [place] [address] Psychiatry Progress Note Signed Patient: Betty Rosenberg MR#: [id number] : 2000 Acct:[id number] Age/Sex: 22 / M Adm Date: 3 Loc: Room: [address] [place] [address] Type : ADM IN Attending Dr: Shubham [...] signed by Shubham Ding MD> 03/10/23 1019 [facility] Work Phone: 1(926) 173-884012-23-2023 History and physical note Author Shubham Ding [facility] March 09, 2023 10:41am Note Date/Time March 09, 2023 10:41am [facility] [address] [place] [address] Psychiatry H&P Signed Patient: Betty Rosenberg MR#: [id number] : 2000 Acct:[id number] Age/Sex: 22 / M Adm Date: 3 Loc: Room: [address] [place] [address] Type: ADM IN Attending Dr: Shubham Ding MD Copies to: MD Darin Posada [facility]~ Date of Service: 03/09/2023 HPI History of [...] Living: With family 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 Review of symptoms: Constitutional: Denies chills and [...] homicidality, reported suicidality Insight: fair Judgment: fair [facility] Medical History Anxiety Carpal tunnel syndrome on [...] signed by Shubham Ding MD> 03/09/23 1041 [facility] Work Phone: 1(730) 960-680811-22-2023 History of Present illness Narrative* Onur Kapadia DDS - 02/06/2023 1:57 PM EST ----- Saturday, February 06, 2023 at 2:01:57 PM ----- ----- Provider: [id number] - Resident Nithya -- [place] ----- COMPOSITE BUDDHIST Patient is scheduled for Hindu on tooth #4 and 5 surface B5. Reviewed Medical History. Pt exhibited the following conditions: No significant medical history Patient is ready for treatment. Topical Benzocaine gel applied at the injection site for 2 minutes. Administered 1 carpules of Articaine, 4% with Epinephrine 1:100,000,. Isolation achieved. Decay/existing yazidism removed, cavity prepared. Selectively etched enamel with 37% phosphoric acid, rinsed, and blot dried. OptiBond delaeny applied and light-cured. Condensed packable composite shade a2 in light cured increments using Mylar strip and wedge. Finished with finishing burs, checked occlusion, verified proximal contacts and yazidism was polished. Rinsed and suctioned intraorally, advised patient to not eat until local anesthesia wears off. POST OPERATIVE RADIOGRAPH TAKEN. Next Visit: Restorative ----- Signed on Saturday, February 06, 2023 at 2:08:28 PM ----- ----- Provider: Michael Troncoso DDS -- [place] ----- documented in this [id number] Telephone encounter Note* Telephone Encounter - Karla Tony - 12/28/2022 1:30 PM EDT Situation: UPDATE Background: Pt would like Provider Suri to msg him on [facility]. Pt states he is unable to msg provider because their msgs have . Pt would like to stay in contact with provider via [employer] in order to schedule his trigger point appts. Pt does not want to call in to be scheduled. Pt last seen 11/16/22 w [facility] Assessment: n/a Recommendation: VIDHYA Thank you :) Msg sent to Suri @ [facility] on 12/28/22 [id number] Miscellaneous Notes* Telephone Encounter - Karla Tony - 12/28/2022 1:30 PM EDT Situation: UPDATE Background: Pt would like Provider Suri to msg him on [employer]. Pt states he is unable to msg provider because their msgs have . Pt would like to stay in contact with provider via [employer] in order to schedule his trigger point appts. Pt does not want to call in to be scheduled. Pt last seen 11/16/22 w [facility] Assessment: n/a Recommendation: FYI Thank you :) Msg sent to Suri @ [facility] on 12/28/22 documented in this [id number] History of Present illness Narrative* Alfonzo Mccord DDS - 11/16/2022 12:00 AM EDT ----- Wednesday, November 16, 2022 at 11:09:37 AM ----- ----- Provider: [id number] Tessa Mccord, Fellow -- [place]: [place] ----- Patient returned for trigger point injections [...] 2022 at 9:53:55 PM ----- ----- Provider: [id number] - Ruel Cruz DMD -- [place] ----- documented in this [id number] History of Present illness Narrative* Javed Mendez DDS - 10/11/2022 11:19 AM EDT ----- September at 2:40:08 PM ----- ----- Provider: [id number] - Resident Netta -- [place] ----- COMPOSITE BUDDHIST Patient is scheduled for Hindu on tooth #31 surface MOLB. Reviewed Medical History. Pt exhibited the following conditions: nothing mentioned in EPIC Patient is ready for treatment. Topical Benzocaine gel applied at the injection site for 2 minutes. Administered 1 carpules of Lidocaine, 2% with Epinephrine 1:100,000,. Rubber dam isolation achieved. Decay/existing yazidism removed, cavity prepared. [place] [employer] Selectively etched enamel with 37% phosphoric acid, rinsed, and blot dried. Xeno IV delaney applied and light-cured. Condensed packable composite shade A2 in light cured increments using Toffelmaire matrix band retainer and wedge. Finished with finishing burs, checked occlusion, verified proximal contacts and yazidism was polished. Rinsed and suctioned intraorally, advised [...] 2022 at 2:57:24 PM ----- ----- Provider: [id number] Martin Troncoso DDS -- [place] ----- documented in this [id number] History of Present illness Narrative* Erum Laboy DDS - 10/08/2022 9:58 AM EDT Disruptive Behavior Progress Note Betty Rosenberg 2000 [id number] Type of disruptive behavior: Inappropriate verbal behavior [...] on a daily basis. documented in this [id number] Discharge summary Author Brandon cancino [facility] 2022 7:45am Note Date/Time 2022 7:45 am [facility] [address] [place] [address] Discharge Summary Signed Patient: Betty Rosenberg MR#: [id number] : 2000 Acct:[id number] Age/Sex: 22 / M Adm Date: 3 Loc: Room: [address] [place] [address]: Shubham Ding MD Copies to: MD Shubham Jones MD Lucas T Shammo, [facility]-~ Providers Date of Discharge: 10/03/22 Discharging Provider: [...] supervision of a psychiatrist. The patient was head counselor to follow-up with their outpatient medical provider as indicated. The patient was counseled that if there was an increase in mental health issues, depression, anxiety, medication side effects, self harm or thoughts of harm to others, the patient was not to harm them self or stop treatment, but to call [facility], [facility] or come to the nearest emergency room. [...] PO DAILY Qty: 0 0RF Follow Up: [facility] [Other] [facility] Hotline [Outside] Darin Montoya, [facility] [Primary Care Provider] - (Contact primary provider withany medical needs. ) Documented By: Brandon Ca MD 3 0743 Signed By: <Electronically signed by Brandon Ca MD> 10/03/22 0745 [facility] Work Phone: 1(777) 261-172607-18-2023 Progress note Author Brandon cancino [facility] October 02, 2022 7:32am Note Date/Time October 02, 2022 7:33 am [facility] [address] [place] [address] Psychiatry Progress Note Signed Patient: Betty Rosenberg MR#: [id number] : 2000 Acct:[id number] Age/Sex: 21 / M Adm Date: 3 Loc: Room: [address] [place] [address] Type : ADM IN Attending Dr: Shubham [...] explained Documented By: Brandon Ca MD 3 31 Signed By: <Electronically signed by Brandon Ca MD> 10/02/22 0732 [facility] Work Phone: 1(846) 511-635207-17-2023 Progress note Author Brandon cancino [facility] October 01, 2022 7:40am Note Date/Time October 01, 2022 7:37 am [facility] [address] [place] [address] Psychiatry Progress Note Signed Patient: Betty Rosenberg MR#: [id number] : 2000 Acct:[id number] Age/Sex: 21 / M Adm Date: 3 Loc: 1S Room: [address] [place] [address] Type : ADM IN Attending Dr: Shubham [...] the increased doses. He follows up with [facility] in [place]. He has not tried Lexapro before. He [...] signed by Brandon Ca MD> 10/01/22 0740 [facility] Work Phone: 1(712) 733-136807-16-2023 Progress note Author Shubham Ding [facility] September 30, 2022 12:42pm Note Date/Time September 30, 2022 12:4 2pm [facility] [address] [place] [address] Psychiatry Progress Note Signed Patient: Betty Rosenberg MR#: [id number] : 2000 Acct:[id number] Age/Sex: 21 / M Adm Date: 3 Loc: Room: [address] [place] [address] Type : ADM IN Attending Dr: Shubham [...] <Electronically signed by Shubham Ding MD> 09/30/221241 [facility] Work Phone: 1(518) 467-692307-15-2023 History and physical note Author Shubham Ding [facility] September 29, 2022 1:14pm Note Date/Time September 29, 2022 1:13 pm [facility] [address] [place] [address] Psychiatry H&P Signed Patient: Betty Rosenberg MR#: [id number] : 2000 Acct:[id number] Age/Sex: 21 / M Adm Date: 3 Loc: 1S Room: [address] [place] [address] Type: ADM IN Attending Dr: Shubham Ding MD Copies to: MD Darin Posada, [facility]~ Date of Service: 09/29/2022 HPI History of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
[2023-12-16 20:19] VITALS: BP 130/81; PULSE 77; TEMP 36.9; O2SAT 99; BMI 24.2
[2023-12-16 20:30] VITALS: BP 139/84; PULSE 81; TEMP 36.8; O2SAT 98; BMI 21.3
--- NOTE | 2023-12-16 20:46 | PC.NURSE ---
Was notified by ER nurse Cely Fitzgerald, of patients mental health crisis and his statements of homicidal ideation and threats of active violence towards [facility]. Patient has been searched and changed into scrubs by security, security is at bedside at this time. This RN called the client experience administrator bulk station agent, Jessica Guido. I explained the situation to her and asked for guidance and recommendations in the next steps of handling the situation. She stated that the patient should have security at bedside and for us to maintain our conversation with the mental health hotline. She stated that no further actions at this time were required as long as the ER physician was comfortable with the situation, Dr. Godoy stated that he was. Was informed that if security felt like they needed to notify [place] [employer] at any time, we were more than welcome to get their assistance at the facility.
--- NOTE | 2023-12-16 20:50 | ECG_ITS ---
[facility] Test Date: 2023-12-16 Pat Name: BETTY SALGUERO Department: Room: - Gender: Male Officer Lieutenant: : 2000 Requested By: REYNOLD GUZMAN Order Number: [id number] Reading MD: LENNOX TOWNSEND Measurements Intervals [place] Rate: 68 P: 69 HI: 136 QRS: 86 QRSD: 82 T: 64 QT: 358 QTc: 376 Interpretive Statements 1100 Sinus rhythm 1102 Sinus arrhythmia 9110 normal ECG Compared to ECG 03/09/2023 04:02:22 No significant changes Electronically Signed On 12-16-2023 23:00:15 EDT by LENNOX TOWNSEND
--- NOTE | 2023-12-16 20:52 | ED_ITS ---
HPI - Psych General Chief Complaint: Psychiatric Symptoms Stated Complaint: Altered Mental Status Time Seen by Provider: 12/16/23 20:37 Source: Reports patient Mode of arrival: walk-in Limitations: Reports no limitations History of Present Illness HPI Narrative: upset with the world. Doesn't feel he is getting the help he needs. also complains of right shoulder pain. he works in a [place] has been admitted to in patient psych in the past. Was on anti psychotics which he is now not taking. wants help for his anger and agitation Related Data Home Medications ?Medication ?Instructions ?Recorded ?Confirmed aripiprazole 5 mg tablet 5 mg PO .at bedtime 08/30/22 03/09/23 duloxetine 60 mg capsule,delayed 60 mg PO QAM 08/30/22 03/09/23 release gabapentin 300 mg capsule 300 mg PO DAILY 08/30/22 03/09/23 lamotrigine 25 mg tablet 50 mg PO QAM 09/28/22 03/09/23 mirtazapine 7.5 mg tablet 7.5 mg PO .at night 09/28/22 03/09/23 Allergies Allergy/AdvReac Type Severity Reaction Status Date / Time No Known Drug Allergies Allergy Verified 12/16/23 20:30 Review of Systems ROS Status of ROS 10 or more systems reviewed and unremark able except as noted in history and below [facility] Medical History (Updated 12/17/23 @ 06:58 by Mihir Godoy MD) Depression ?F32.A - Depression, unspecified (ICD-10) Social History Smoking status: Current every day smoker Little interest or pleasure in doing things: nearly every day Feeling down, depressed, or hopeless: nearly every day Exam Constitutional Vital Signs, click to edit/add: Last Vital Signs Temp 98.1 F 12/17/23 06:08 Pulse 64 12/17/23 06:08 Resp 20 12/17/23 06:08 BP 116/58 12/17/23 06:08 Pulse Ox 100 12/17/23 06:08 O2 Del Method Room Air 12/17/23 06:08 Common normals: no apparent distress, oriented x3, healthy appearing, alert and well nourished [facility] Common normals: normocephalic and head/scalp atraumatic Respiratory Common normals: normal respiratory effort, no retractions, no use of accessory muscles and clear to auscultation bilaterally Cardio Common normals: regular rate, regular rhythm, S1 normal heart sound and S2 normal heart sound Extremity Common normals: normal to inspection and full ROM Neuro Common normals: oriented x3, CN's II-XII intact bilaterally, moves all extremities and no focal motor deficits Psych Activity/motor behavior: appropriate eye contact and psychomotor agitation Course Vital Signs Vital signs: Vital Signs Temperature 98.4 F 12/16/23 20:19 Pulse Rate 77 12/16/23 20:19 Respiratory Rate 18 12/16/23 20:19 Blood Pressure 130/81 12/16/23 20:19 Pulse Oximetry 99 12/16/23 20:19 Temperature 98.1 F 12/17/23 06:08 Pulse Rate 64 12/17/23 06:08 Respiratory Rate 20 12/17/23 06:08 Blood Pressure 116/58 12/17/23 06:08 Pulse Oximetry 100 12/17/23 06:08 Oxygen Delivery Method Room Air 12/17/23 06:08 MDM - Psych MDM Narrative Medical decision making narrative: patient presents with mood disorder and homicidal thoughts. Pinked slip by mental health. [address] will not accept this patient. They reportedly have a past history with him. He is cleared medically and we are waiting for acceptance at another facility. Care transferred to [facility] Lab Data Labs: Lab Results 12/16/23 12/16/23 Range/Units 21:05 21:50 WBC 5.6 (4.0-11.0) 10^3/uL RBC 5.32 (4.70-6.10) 10^6/uL Hgb 15.6 (14.0-18.0) g/dL Hct 46.2 (42.0-54.0) % MCV 86.8 (80.0-94.0) fL MCH 29.3 (25.9-34.0) pg MCHC 33.8 (29.9-35.2) g/dL RDW 12.4 (11.0-15.0) % Plt Count 212 (150-450) 10^3/uL MPV 10.0 (9.5-13.5) fL Neut % (Auto) 65.4 (43.0-75.0) % Lymph % (Auto) 25.3 (20.5-60.0) % [place] % (Auto) 6.4 (1.7-12.0) % Eos % (Auto) 2.1 (0.9-7.0) % Baso % (Auto) 0.4 (0.2-2.0) % Neut # (Auto) 3.7 (1.4-6.5) 10^3/uL Lymph # (Auto) 1.4 (1.2-3.8) 10^3/uL [place] # (Auto) 0.4 (0.3-0.8) 10^3/uL Eos # (Auto) 0.1 (0.0-0.7) 10^3/uL Baso # (Auto) 0.0 (0.0-0.1) 10^3/uL Abs Immat Gran (auto) 0.02 (0.00-0.03) 10^3/uL Imm/Tot Granulo (auto) 0.4 (0.0-0.5) % Sodium 138 (136-145) mmol/L Potassium 3.8 (3.5-5.1) mmol/L Chloride 102 (98-107) mmol/L Carbon Dioxide 33.6 H (21.0-32.0) mmol/L Anion Gap 6.2 BUN 10.0 (7.0-18.0) mg/dL Creatinine 0.89 (0.70-1.30) mg/dL Est GFR ( Amer) >60 (>=60) Est GFR (Non-Af Amer) >60 (>=60) BUN/Creatinine Ratio 11.2 Glucose 70 L (74-106) mg/dL Calcium 9.5 (8.5-10.1) mg/dL Total Bilirubin 0.4 (0.2-1.0) mg/dL AST 21 (15-37) U/L ALT 33 (16-63) U/L Alkaline Phosphatase 57 (46-116) U/L Total Protein 7.7 (6.4-8.2) g/dL Albumin 4.1 (3.4-5.0) g/dL Globulin 3.6 g/dL Albumin/Globulin Ratio 1.1 Salicylates <2.8 (<=19.9) mg/dL Urine Opiates Screen Negative (NEGATIVE) Ur Buprenorphine Scrn Negative (NEGATIVE) Ur Oxycodone Screen Negative (NEGATIVE) Urine Methadone Screen Negative (NEGATIVE) Acetaminophen <2.0 L (10.0-30.0) ug/mL Ur Barbiturates Screen Negative (NEGATIVE) U Tricyclic Antidepress Negative (NEGATIVE) Ur Phencyclidine Scrn Negative (NEGATIVE) Ur Amphetamines Screen Negative (NEGATIVE) U Methamphetamines Scrn Negative (NEGATIVE) U Benzodiazepines Scrn Negative (NEGATIVE) Urine Cocaine Screen Negative (NEGATIVE) U Cannabinoids Screen Positive A (NEGATIVE) Ethanol Quant <3 mg/dL Discharge Plan Discharge Chief Complaint: Psychiatric Symptoms Clinical Impression: Homicidal ideation Patient Disposition: Home, Self-Care Prescriptions / Home Meds: No Action gabapentin 300 mg capsule 300 mg PO DAILY aripiprazole 5 mg tablet 5 mg PO .at bedtime duloxetine 60 mg capsule,delayed release(DR/EC) 60 mg PO QAM lamotrigine 25 mg tablet 50 mg PO QAM mirtazapine 7.5 mg tablet 7.5 mg PO .at night Print Language: Maori Referrals: REYNOLD GUZMAN [Primary Care Provider] - 1 week
[2023-12-16 21:16] LABS: Basophils Percent Auto 0.4 % (0.2-2.0); Eosinophils Absolute Auto 0.1 10^3/uL (0.0-0.7); Eosinophils Percent Auto 2.1 % (0.9-7.0); Hematocrit 46.2 % (42.0-54.0); Hemoglobin 15.6 g/dL (14.0-18.0); Immature Granulocytes Abs Auto 0.02 10^3/uL (0.00-0.03); Immature Granulocytes Pct Auto 0.4 % (0.0-0.5); Lymphocytes Absolute Auto 1.4 10^3/uL (1.2-3.8); Lymphocytes Percent Auto 25.3 % (20.5-60.0); Mean Corpuscular HGB Conc 33.8 g/dL (29.9-35.2); Mean Corpuscular Hemoglobin 29.3 pg (25.9-34.0); Mean Corpuscular Volume 86.8 fL (80.0-94.0); Monocytes Absolute Auto 0.4 10^3/uL (0.3-0.8); Monocytes Percent Auto 6.4 % (1.7-12.0); Neutrophils Absolute Auto 3.7 10^3/uL (1.4-6.5); Neutrophils Percent Auto 65.4 % (43.0-75.0); Platelet Count 212 10^3/uL (150-450); Red Blood Count 5.32 10^6/uL (4.70-6.10); Red Cell Distribution Width 12.4 % (11.0-15.0); White Blood Count 5.6 10^3/uL (4.0-11.0)
[2023-12-16 21:35] LABS: Salicylate <2.8 mg/dL (<=19.9)
[2023-12-16 21:42] LABS: Acetaminophen <2.0 ug/mL (10.0-30.0); Ethanol <3 mg/dL
[2023-12-16 21:45] VITALS: BP 140/64; PULSE 77; O2SAT 100
[2023-12-16 21:45] LABS: Alanine Aminotransferase 33 U/L (16-63); Albumin Globulin Ratio 1.1; Albumin Level 4.1 g/dL (3.4-5.0); Alkaline Phosphatase 57 U/L (46-116); Anion Gap 6.2; Aspartate Amino Transferase 21 U/L (15-37); BUN Creatinine Ratio 11.2; Bilirubin Total 0.4 mg/dL (0.2-1.0); Calcium 9.5 mg/dL (8.5-10.1); Carbon Dioxide 33.6 mmol/L (21.0-32.0); Chloride 102 mmol/L (98-107); Estimated GFR (African America >60 (>=60); Estimated GFR (Non-African Ame >60 (>=60); Globulin 3.6 g/dL; Glucose 70 mg/dL (74-106); Potassium 3.8 mmol/L (3.5-5.1); Sodium 138 mmol/L (136-145); Total Protein 7.7 g/dL (6.4-8.2)
[2023-12-16 22:16] LABS: Amphetamine Screen Urine NEGATIVE (NEGATIVE); Barbiturates Screen Urine NEGATIVE (NEGATIVE); Benzodiazepines Screen Urine NEGATIVE (NEGATIVE); Buprenorphine Screen Urine NEGATIVE (NEGATIVE); Cannabinoid Screen Urine POSITIVE (NEGATIVE); Cocaine Screen Urine NEGATIVE (NEGATIVE); Methadone Screen Urine NEGATIVE (NEGATIVE); Methamphetamines Screen Urine NEGATIVE (NEGATIVE); Opiate Screen Urine NEGATIVE (NEGATIVE); Oxycodone Screen Urine NEGATIVE (NEGATIVE); Phencyclidine Screen Urine NEGATIVE (NEGATIVE); Tricyclic Antidepressant Urine NEGATIVE (NEGATIVE)
[2023-12-17 06:08] VITALS: BP 116/58; PULSE 64; TEMP 36.7; O2SAT 100
== END 2023-12-17 08:35 ==
PROVIDERS: Emergency Provider Internal Medicine; PCP Nurse Practitioner Family
DX: R45.850 Homicidal ideations (principal); F17.200 Nicotine dependence, unspecified, uncomplicated
CPT/HCPCS: 36415; 80053; 80179; 80307; 80320; 80329; 85025; 93005; 99285

== ENCOUNTER 2024-01-08 13:15 | Outpatient (OUT) | payer OTHER, SELFPAY ==
--- NOTE | 2024-01-08 13:28 | XR_ITS ---
[address] [address] Patient Name: BETTY SALGUERO MRN: [id number] date: 2000 Sex: M Assigned Patient Location: [facility] Current Patient Location: [facility] Accession/Order Number: [id number] Exam Date: 01/08/2024 13:35 Report Date: 01/09/2024 09:44 At the request of: CYNTHIA HYATT Procedure: XR DEXA axial skeleton EXAMINATION: XR DEXA axial skeleton HISTORY: Arthralgia, M25.50 COMPARISON: No relevant comparison available. TECHNIQUE: Dual-energy X-ray absorptiometry (DXA) was performed. FINDINGS: SPINE ANALYSIS: Average bone mineral density is 1.144 g/cm2. T-score (standard deviation relative to young adult mean): -0.6 . HIP ANALYSIS: Lowest bone mineral density is within the right femoral neck, 0.922 g/cm2. T-score (standard deviation relative to young adult mean): -1.1 . XR/XR DEXA axial skeleton IMPRESSION: World Health Organization Classification: Osteopenia - Moderate Fracture Risk FRAX: Cannot be calculated. Pharmacologic treatment recommendations * No uniform recommendation applies to all patients. Management plans must be individualized. * Consider initiating pharmacologic treatment in postmenopausal women and men >= 50 years of age who have the following: Primary fracture prevention: * T-score <= - 2.5 at the femoral neck, total hip, lumbar spine, 33% radius (some uncertainty with existing data) by DXA. * Low bone mass (osteopenia: T-score between - 1.0 and - 2.5) at the femoral neck or total hip by DXA with a 10-year hip fracture risk >= 3% or a 10-year major osteoporosis-related fracture risk >= 20% (i.e., clinical vertebral, hip, forearm, or proximal humerus) based on the [place]-adapted FRAXregistered model. Secondary fracture prevention: * Fracture of the hip or vertebra regardless of BMD [4, 5]. * Fracture of proximal humerus, pelvis, or distal forearm in persons with low bone mass (osteopenia: T-score between - 1.0 and - 2.5). The decision to treat should be individualized in persons with a fracture of the proximal humerus, pelvis, or distal forearm who do not have osteopenia or low BMD [12, 13]. Hoang MS, Salina SL, Aixa KL, Kinga EM, Donovan KG, AJ, Gustavo ES. The clinician's guide to prevention and treatment of osteoporosis. Osteoporos Int. 2021;33(10):6377-1071. doi: 10.1007/f45714-590-55072-g. Epub 2021Jul 13. Erratum in: Osteoporos Int. 2021Oct 12;: PMID: [id number]; PMCID: [id number]. Electronically authenticated by: SANKET LORA Date: 01/09/2024 09:44
--- OUTSIDE RECORDS SUMMARY | 2024-01-08 13:38 | XMS_ITS | CCD ---
Author Organization [facility] Care Team Providers Care Cable Splicing Technician Name Role Phone Juan Madrigal Primary [...] DARIN Consulting Unavailable Vasilyeva DDS, Erum Unavailable [phone] Ashley ALVAREZ MD, Cherise Unavailable [phone] Shammo, SHOP TAILOR APPRENTICE-BC Darin T Primary Care Provider MD Tana Ca Admit Provider [phone] MD Tana Ca Attending Provider Shammo, SHOP TAILOR APPRENTICE-BC Darin T Primary Care Provider DO Christiano Phelps Emergency Provider [phone] Timur, MD Shubham Admit Provider MD Timur Shubham Attending Provider MD Tana Ca Attending Provider [phone] Narda DDS, Erum Unavailable [phone] Suri DDS, Parveez Unavailable Shammo, SHOP TAILOR APPRENTICE-BC Darin T Primary Care Provider MD Timur Shubham Admit Provider MD Mariana Dingmi Attending Provider [phone] Ashley ALVAREZ MD, Cherise Unavailable ELLEN JOSHUA Attending Unavailable SHAMMO, DARIN Referring Unavailable SHAMMO, DARIN Primary Care Unavailable ELLEN JOSHUA Referring Unavailable SHAMMO, DARIN Primary Care Unavailable VERELLEN MARKHAM Referring Unavailable SHAMMO, DARIN Primary Care Unavailable [...] UNKNOWN Admitting Unavailable PROVIDER, UNKNOWN Attending Unavailable Shammo, Darin T Primary Care Unavailable Shubham Ding Admitting Unavailable Shubham Ding Attending Unavailable Brandon Ca Admitting Unavailab Brandon Rosa Attending Unavailab le Shammo, Darin T Primary Care Unavailable Rosalind Hawley DO Unavailable Kim NEWTON, Keena Unavailable KIMMIE LUZ Attending Unavailable JUSTUS SUTTON Attending Unavailable TAWANNA LAURENT Attending Unavailable JUSTUS SUTTON Referring Unavailable ARTI WOODRUFF Attending Unavailable JUSTUS SUTTON Referring Unavailable ARTI WOODRUFF Attending Unavailable JUSTUS SUTTON Referring Unavailable JUSTUS SUTTON Attending Unavailable JUSTUS SUTTON Referring Unavailable KIMMIE LUZ Attending Unavailable Medications Current Medications Medication Drug Class(es) Dates Sig (Normalized) Sig (Original) 24 hr buPROPion hydrochloride 150 mg extended release oral tablet (1 source) Aminoketone Start: 03-13-2023 take 150 mg by mouth once daily in the morning Bupropion Hcl Active 150 MG PO Every morning March 13, 2023 12:00am carBAMazepine 200 mg oral tablet (2 sources) Mood Stabilizer take 1 tablet by mouth in the morning carBAMazepine (TEGretol) 200 MG tablet Take 200 mg by mouth in the morning and 200 mg before bedtime. Active chlorhexidine gluconate 1.2 mg/ml mouthwash (3 sources) Start: 10-29-2022 End: 11-28-2022 take 15 mL by mouth twice daily chlorhexidine (Peridex) 0.12 % oral solution Indications: Poor oral hygiene Take 15 mL by mouth 2 times daily. 900 mL 0 10/29/2022 Active diclofenac sodium 0.01 mg/mg topical gel (17 sources) Nonsteroidal Anti-inflammatory Drug Start: 11-12-2023 diclofenac sodium (Voltaren) 1 % gel Indications: Cervicalgia , Muscle spasm Apply to neck area three times/day 2 g 5 11/12/2023 Active Start: 06-14-2022 diclofenac (VO LTAREN) 1 % GEL topical gel Indications: Arthralgia of right temporomandibular joint Apply 2 g topically 2 times daily as needed. 50 g 0 06/14/2022 Active sodium fluoride 0.011 mg/mg toothpaste (12 sources) Start: 07-16-2022 Sodium Fluorid e (PreviDent 5000 Booster Plus) 1.1 % PSTE [...] Active cyclobenzaprine hydrochloride 10 mg oral tablet (16 sources) Muscle Relaxant Start: 05-22-2022 End: 06-21-2022 take 10 mg by mouth at bedtime Cyclobenzaprine Discontinued 10 MG PO Bedtime June 11, 2022 11:00pm June 12, 2022 7:12pm Start: 05-03-2021 End: 05-25-2021 take 10 mg by mouth twice daily Cyclobenzaprine Discontinued 10 MG PO Twice daily May 03, 2021 12:00am May 25, 2021 7:46am take 1 tablet by jose th three times daily as needed cyclobenzaprine (Flexeril) 10 MG tablet Take 10 mg by mouth 3 (three) times a day as needed Active DULoxetine 60 mg delayed release oral capsule [...] Active Problems Problem Classification Problem Date Documented Date Episodic/Chronic Abdominal pain (3 sources) Indigestion; Translations: [Epigastric pain] 05-03-2021 Episodic Disorders of teeth and jaw (11 sources) Pain of right temporomandibular joint; Translations: [Arthralgia of right temporomandibular joint] Onset: 06-04-2022 Episodic Mood disorders (8 sources) Major depressive disorder, single episode, unspecified; Translations: [Depressive disorder] Onset: 01-29-2022 05-08-2021 Chronic Mood disorders (1 source) Mood disorders; Translations: [Depression, unspecified] Onset: 03-09-2023 Nausea and vomiting (3 sources) Nausea; Translations: [Nausea] 05-03-2021 Episodic Other connective tissue disease (3 sources) Myofascial pain; Translations: [Myalgia, other site] Episodic Other connective tissue disease (1 source) Localized masticatory muscle soreness; Translations: [Myalgia of mastication muscle] Episodic Other connective tissue disease (3 sources) Muscle pain; Translations: [Myalgia, other site] Onset: 11-12-2023 Episodic Other connective tissue disease (2 sources) Spasm; Translations: [Other muscle spasm] Onset: 11-12-2023 11-12-2023 Episodic Other nervous system disorders (4 sources) Polyneuropathy, unspecified; Translations: [POLYNEUROPATHY UNSPECIFIED] Onset: 05-28-2022 Chronic Other nervous system disorders (2 sources) Carpal tunnel syndrome; Translations: [Carpal tunnel syndrome, unspecified upper limb] Onset: 09-17-2023 09-17-2023 Chronic Other nervous system disorders (2 sources) Disorder of right median nerve; Translations: [Other lesions of median nerve, right upper limb] Onset: 09-17-2023 09-17-2023 Chronic Other nervous system disorders (1 source) Anesthesia of skin; Translations: [Anesthesia of skin] Onset: 07-03-2023 Episodic Other nervous system disorders (2 sources) Anesthesia of skin; Translations: [Anesthesia of skin] Onset: 11-12-2023 11-12-2023 Episodic Other screening for suspected conditions (not mental disorders or infectious disease) (2 sources) Encounter for observation for other suspected diseases and conditions ruled out; Translations: [Encounter for observation for other suspected diseases and conditions ruled out] Onset: 06-14-2022 Episodic Residual codes; unclassified (1 source) Poor oral hygiene; Translations: [Other specified personal risk factors, not elsewhere classified] 10-29-2022 Episodic Substance-related disorders (1 source) Nicotine dependence, cigarettes, uncomplicated; Translations: [NICOTINE DEPEND CIGARETTES UNCOMP] Onset: 06-13-2022 Chronic Substance-related disorders (1 source) Cannabis use, unspecified, uncomplicated; Translations: [CANNABIS USE UNS UNCOMPLICATED] Onset: 06-13-2022 Episodic Suicide and intentional self-inflicted injury (7 sources) Suicidal ideations; Translations: [Suicidal thoughts] Onset: 06-12-2022 Episodic Unclassified (1 source) CONTACT W/AND (SUSP) EXPOS COVID-19; Translations: [CONTACT W/AND (SUSP) EXPOS COVID-19] Onset: 06-13-2022 Past or Other Problems Problem Classification Problem Date Documented Da te Episodic/Chronic Other nervous system disorders (4 sources) Paresthesia; Translations: [Paresthesia of skin] Onset: 09-17-2023 09-17-2023 Episodic Other nutritional; endocrine; and metabolic disorders (4 sources) Anorexia; Translations: [ANOREXIA] Onset: 01-28-2022 Episodic Spondylosis; intervertebral disc disorders; other back problems (14 sources) Radiculopathy, cervical region; Translations: [Cervicalgia] Onset: 06-04-2022 Episodic Results Test Name Value Interpretation Reference Range Facility Progress Noteson 11-22-2023 Warehouse Foreman Authentication Interface Message Text Normal [facility] [employer] [facility] Warehouse Foreman Authentication Interface Message Text ----- Wednesday, November 22, 2023 at 1:34:35 PM ----- ----- Provider: [id number] Constance -- Clinic: [facility] ----- LIMITED EXAM Patient presents for Emergency appointment with a CC of fracture of the mesial tenriism tooth # 10 area of their mouth. [...] patient. Patient consented to treatment today. COMPOSITE MU-ISM Patient is scheduled for Holiness on tooth #10 surface MLF. Reviewed Medical History. Pt exhibited the following conditions: No significant medical history Patient is ready for treatment. Topical Benzocaine gel applied at the injection site for 2 minutes. Administered 1 carpules of . cotton roll isolation achieved. Decay/existing tenriism removed, cavity prepared. Selectively etched enamel with 37% phosphoric acid, rinsed, and blot dried. Xeno IV delaney applied and light-cured. Condensed packable composite shade A2 in light cured increments using Mylar strip and wedge. Finished with finishing burs, checked occlusion, verified proximal contacts and tenriism was polished. Rinsed and suctioned intraorally, advised patient to not eat until local anesthesia wears off. POST OPERATIVE Periapical (single) RADIOGRAPH TAKEN. Next Visit: Extraction (single) ----- Signed on Wednesday, November 22, 2023 at 1:53:10 PM ----- ----- Provider: [id number] - Christian Troncoso DDS -- [facility]: [facility] ----- [facility] Progress Noteson 07-24-2023 Warehouse Foreman Authentication Interface Message Text ----- Monday, July 24, 2023 at 4:26:32 PM ----- ----- Provider: [id number] - Resident Nithya -- Clinic: [facility] ----- COMPOSITE MU-ISM Patient is scheduled for Holiness on tooth #10-DL and 11-MDL. Reviewed Medical History. Pt exhibited the following conditions: No significant medical history Patient is ready for treatment. Topical Benzocaine gel applied at the injection site for 2 minutes. Administered 1 carpules of Lidocaine, 2% with Epinephrine 1:100,000,. Isolation achieved. Decay/existing tenriism removed, cavity prepared. Selectively etched enamel with 37% phosphoric acid, rinsed, and blot dried. OptiBond delaney applied and light-cured. Condensed packable composite shade a3 in light cured increments using Mylar strip and wedge. Finished with finishing burs, checked occlusion, verified proximal contacts and tenriism was polished. Rinsed and suctioned intraorally, advised patient to not eat until local anesthesia wears off. POST OPERATIVE Periapical (single) RADIOGRAPH TAKEN. 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 It has to be replace in his next appointment Next Visit: Restorative ----- Signed on July at 8:19:57 AM ----- ----- Provider: [id number] - Christian Troncoso DDS -- Clinic: [facility] ----- Normal [facility] [employer] [facility] XR SPINE CERVICAL 4 OR 5 [...] Chu Adkins on 07/05/2023 4:09 PM Normal [facility] Progress Noteson 05-31-2023 Warehouse Foreman Authentication Interface Message Text [facility], pt is ready for tx. Pt is [...] NV: RESTOTooth: 6 Surface: DL Normal [facility] [employer] [facility] Warehouse Foreman Authentication Interface Message Text ----- Wednesday, May 31, 2023 at 1:45:00 PM ----- ----- Provider: [id number] Tessa Nicholas, -- Clinic: [facility] ----- COMPOSITE MU-ISM Patient is scheduled for Holiness on tooth #6 surface DL. Reviewed Medical History. Pt exhibited the following conditions: No significant medical history Patient is ready for treatment. Topical Benzocaine gel applied at the injection site for 2 minutes. Administered 1 carpules of Lidocaine, 2% with Epinephrine 1:100,000,. Decay/existing tenriism removed, cavity prepared. Selectively etched enamel with 37% phosphoric acid, rinsed, and blot dried. Xeno IV delaney applied and light-cured. Condensed packable composite shade A2 in light cured increments using Toffelmaire matrix band retainer and wedge. Finished with finishing burs, checked occlusion, verified proximal contacts and tenriism was polished. Rinsed and suctioned intraorally, advised patient to not eat until local anesthesia wears off. POST OPERATIVE Periapical (single) RADIOGRAPH TAKEN. Next Visit: Restorative ----- Signed on Friday, June 02, 2023 at 9:01:27 AM ----- ----- Provider: [id number] - Ruel Cruz DMD -- Clinic: [facility] ----- Normal [facility] [employer] [facility] Progress Noteson 03-25-2023 Warehouse Foreman Authentication Interface Message Text ----- Saturday, March 25, 2023 at 8:30:40 AM ----- ----- Provider: [id number] - Candy Womack -- Clinic: [facility] ----- Patient messaged (EPIC) me at 8:20 [...] muscle. He also inquired last month on [facility] for a provider closer to him for [...] when he does not get a response [place]. His messages are not of urgent nature or medication refills. Responded thank you for taking 2 weeks to get back to me, appreciate it when I responded after my vacation to his repeated messages about what our TPI injections consist of - local anesthetic or steroid. Normal [facility] [employer] [facility] Cholesterol [Mass/volume] in Serum or PlasmaOrdered By: Shubham Ding on 03-10-2023 Cholesterol [Mass/Vol] 117 mg/dL Low 140-200 [facility] Comment on above: Chol less than 200 m g/dl low riskChol 201-239 mg/dl borderline riskChol 240 mg/dl and greater high risk Result Comment: Chol less than 200 mg/dl low risk Chol 201-239 mg/dl borderline risk Chol 240 mg/dl and greater high risk Performed By: #### V [id number], LIPID, TSH3 wRFLX #### [facility] [address] [id number] [facility] Cholesterol in LDL Calc [Mas s/Vol]Ordered By: Shubham Timur on 03-10-2023 Cholesterol in LDL [Mass/Vol] 64 mg/dL 0-100 [facility] Comment on above: LDL ATP III CLASSIFI CATIONLDL less than 100 mg/dL OptimalLDL 100-129 mg/dL Near or above optimalLDL 130-159 mg/dL Borderline highLDL 160-189 mg/dL HighLDL greater than 189 mg/dL Very high Cholesterol in VLDL Calc [Ma ss/Vol]Ordered By: Shubham Timur on 03-10-2023 Cholesterol in VLDL [Mass/Vol] 8 mg/dL [facility] Lipid Panelon 03-10-2023 LDL Cholesterol,Calculated 64 mg/dL Normal 0-100 [facility] Comment on above: Result Comment: LDL ATP III CLASSIFICATION LDL less than 100 mg/dL Optimal LDL 100-129 mg/dL Near or above optimal LDL 130-159 mg/dL Borderline high LDL 160-189 mg/dL High LDL greater than 189 mg/dL Very high Performed By: #### V [id number], LIPID, TSH3 wRFLX #### [facility] [address] [place] [address] [place] Triglyceride w/Reflex 42 mg/dL Normal 0-149 [facility] Comment on above: Result Comment: TRIG ATP III CLASSIFICATION TRIG less than 150 mg/dL Normal TRIG 150-199 mg/dL Borderline high TRIG 200-500 mg/dL High TRIG greater than 500 mg/dL Very high Standard traceable to the Center for Disease Conrtrol and Prevention (CDC) test method. Performed By: #### V [id number], LIPID, TSH3 wRFLX #### [facility] [address] VLDL CHOLESTEROL 8 mg/dL Normal [facility] Comment on above: Performed By: #### V [id number], LIPID, TSH3 wRFLX #### [facility] [address] Serum or plasma high density lipoprotein (HDL) cholesterol measurementOrdered By: Shubham Ding on 03-10-2023 Cholesterol in HDL [Mass/Vol] 45 mg/dL Normal 23- [facility] Comment on above: HDL CHOL ATP-III CLA SSIFICATION Cardiovascular RiskHDL > or equal to 60 mg/dL LOWHDL < 40 mg/dL HIGH Result Comment: HDL CHOL ATP-III CLASSIFICATION Cardiovascular Risk HDL > or equal to 60 mg/dL LOW HDL < 40 mg/dL HIGH Performed By: #### V [id number], LIPID, TSH3 wRFLX #### [address] Serum or plasma total choles terol/high density lipoprotein (HDL) cholesterol mass ratOrdered By: Shubham Ding on 03-10-2023 Cholesterol.total/Abi sterol in HDL [Mass ratio] 2.6 {ratio} Normal <5.0 [facility] Comment on above: Performed By: #### V [id number], LIPID, TSH3 wRFLX #### [address] Thyroid Stim Hormone w/Rflxo n 03-10-2023 Thyroid Stim Hormone w/Rflx 0.83 u[iU]/mL Normal 0.45-5.33 [facility] Comment on above: Performed By: #### V [id number], LIPID, TSH3 wRFLX #### [address] Thyrotropin [Units/volume] i n Serum or PlasmaOrdered By: Shubham Ding on 03-10-2023 TSH Qn 0.83 m[IU]/L 0.45-5.33 [facility] Triglyceride [Mass/volume] i n Serum or PlasmaOrdered By: Shubham Ding on 03-10-2023 Triglyceride [Mass/Vol] 42 mg/dL 0-149 [facility] Comment on above: TRIG ATP III CLASSIF ICATIONTRIG less than 150 mg/dL NormalTRIG 150-199 mg/dL Borderline highTRIG 200-500 mg/dL High TRIG greater than 500 mg/dL Very highStandard traceable to the Center for Disease Conrtrol and Prevention (CDC) test method. Vitamin D 25 Hydroxy Totalon 03-10-2023 Vitamin D 25 Hydroxy Total 44.6 ng/mL Normal 30-100 [facility] Comment on above: Result Comment: GREY MIN D STATUS 25(OH)VITAMIN D RANGE (ng/mL) Deficient <20 Insufficient 20 to <30 Sufficient 30 to 100 Reference: Al Napier, Yvonne BUCHANAN, et al. Evaluation,treatment, and prevention of vitamin D deficiency; an Endocrine Society clinical practice guideline. JCEM. 2010; 96(7):1911-30. PERFORMED BY: [place] [address] PATHOLOGIST FRONT DESK MANAGER HANNY WEAVER M.D. Performed By: #### V [id number], LIPID, TSH3 wRFLX #### [address] Vitamin D+Metabolites [Mass/ volume] in Serum or PlasmaOrdered By: Shubham Ding on 03-10-2023 Vitamin D+Metabolites [Mass/Vol] 44.6 ng/mL 30-100 [facility] Comment on above: VITAMIN D STATUS 25( [place])VITAMIN D RANGE (ng/mL) Deficient <20 Insufficient 20 to <30Sufficient 30 to 100Reference: Al Napier, Yvonne BUCHANAN, et al. Evaluation,treatment, and prevention of vitamin D deficiency; an Endocrine Society clinical practice guideline. JCEM. 2010; 96(7):1911-30. ECG 12 lead ECGon 03-09-2023 ECG 12 lead ECG [place] [address] Electrocardiograph Report Signed Patient: Gerardo Rosenberg MR#: [id number] 140 : 2000 Acct:[id number] Age/Sex: 22 / M ADM Date: 03/09/23 Loc: Room: [address] [place] [address] Type: ADM IN Attending Dr: Shubham Ding [...] change was found Confirmed by RANDY NEWTON [facility][id number][facility] on 03/10/2023 11:46:30 AM Referred By: Electronically Signed By:HAJA ROY MD [facility] Transcribed By: MUS Signed By Aiden Roy MD 03/10/23 1146 Normal [facility] Progress Noteson 02-22-2023 Warehouse Foreman Authentication Interface Message Text ----- Wednesday, February 22, 2023 at 11:57:25 AM ----- ----- Provider: [id number] Jose Romero, -- Clinic: [facility] ----- COMPOSITE MU-ISM Patient is scheduled for Holiness on tooth #20 MOD and 21 [id number] . Reviewed Medical History. Pt exhibited the following conditions: No significant medical history Patient is ready for treatment. Topical Benzocaine gel applied at the injection site for 2 minutes. Administered 1 carpules of Lidocaine, 2% with Epinephrine 1:100,000,. Isolation achieved. Decay/existing tenriism removed, cavity prepared. Selectively etched enamel with 37% phosphoric acid, rinsed, and blot dried. OptiBond delaney applied and light-cured. Condensed packable composite shade a3 in light cured increments using Toffelmaire matrix band retainer and wedge. Finished with finishing burs, checked occlusion, verified proximal contacts and tenriism was polished. Rinsed and suctioned intraorally, advised patient to not eat until local anesthesia wears off. POST OPERATIVE Periapical (single) RADIOGRAPH TAKEN. NOTE: Next Visit: Restorative ----- Signed on Saturday, February 25, 2023 at 5:04:28 AM ----- ----- Provider: [id number] - Ruel Cruz DMD -- Clinic: [facility] ----- Normal [facility] [employer] [facility] Progress Noteson 02-06-2023 Warehouse Foreman Authentication Interface Message Text ----- Monday, February 06, 2023 at 2:01:57 PM ----- ----- Provider: [id number] - Resident Nithya -- Clinic: [facility] ----- COMPOSITE MU-ISM Patient is scheduled for Holiness on tooth #4 and 5 surface B5. Reviewed Medical History. Pt exhibited the following conditions: No significant medical history Patient is ready for treatment. Topical Benzocaine gel applied at the injection site for 2 minutes. Administered 1 carpules of Articaine, 4% with Epinephrine 1:100,000,. Isolation achieved. Decay/existing tenriism removed, cavity prepared. Selectively etched enamel with 37% phosphoric acid, rinsed, and blot dried. OptiBond delaney applied and light-cured. Condensed packable composite shade a2 in light cured increments using Mylar strip and wedge. Finished with finishing burs, checked occlusion, verified proximal contacts and tenriism was polished. Rinsed and suctioned intraorally, advised patient to not eat until local anesthesia wears off. POST OPERATIVE RADIOGRAPH TAKEN. Next Visit: Restorative ----- Signed on Monday, February 06, 2023 at 2:08:28 PM ----- ----- Provider: [id number] - Christian Troncoso DDS -- Clinic: [facility] ----- Normal [facility] [employer] [facility] Progress Noteson 01-21-2023 Warehouse Foreman Authentication Interface Message Text ----- Saturday, January 21, 2023 at 10:37:19 AM ----- ----- Provider: [id number] - Candy Womack -- Clinic: [facility] ----- Patient returned for trigger point injections cycle 1 # 4 Patient missed last appointment for TPI and tenriism with adjustment of espana. Referring physician: Cherise [...] ----- Provider: Manuel Cruz DMD -- Clinic: [facility] ----- Normal [facility] [employer] [facility] Telephone Encounteron 2022 Warehouse Foreman Authentication Interface Message Text Situation: UPDATE Background: Pt would like Provider Suri to msg him on [employer]. Pt states he is unable to msg provider because their msgs have . Pt would like to stay in contact with provider via [employer] in order to schedule his trigger point appts. Pt does not want to call in to be scheduled. Pt last seen 11/16/22 montserrat MCCORD Assessment: n/a Recommendation: VIDHYA Thank you :) Msg sent to Suri @ [facility] on 12/28/22 Normal [facility] [employer] [facility] Cholesterol [Mass/volume] in Serum or PlasmaOrdered By: Shubham Ding on 09-29-2022 Cholesterol [Mass/Vol] 147 mg/dL 140-200 [facility] Comment on above: Chol less than 200 m g/dl low riskChol 201-239 mg/dl borderline riskChol 240 mg/dl and greater high risk Cholesterol in LDL Calc [Mas s/Vol]Ordered By: Shubham Ding on 09-29-2022 Cholesterol in LDL [Mass/Vol] 86 mg/dL 0-100 [facility] Comment on above: LDL ATP III CLASSIFI CATIONLDL less than 100 mg/dL OptimalLDL 100-129 mg/dL Near or above optimalLDL 130-159 mg/dL Borderline highLDL 160-189 mg/dL HighLDL greater than 189 mg/dL Very high Cholesterol in VLDL Calc [Ma ss/Vol]Ordered By: Shubham Ding on 09-29-2022 Cholesterol in VLDL [Mass/Vol] 12 mg/dL [facility] Serum or plasma high density lipoprotein (HDL) cholesterol measurementOrdered By: Shubham Ding on 09-29-2022 Cholesterol in HDL [Mass/Vol] 49 mg/dL 23-92 [facility] Comment on above: HDL CHOL ATP-III CLA SSIFICATION Cardiovascular RiskHDL > or equal to 60 mg/dL LOWHDL < 40 mg/dL HIGH Serum or plasma total choles terol/high density lipoprotein (HDL) cholesterol mass ratOrdered By: Shubham Ding on 09-29-2022 Cholesterol.total/Abi sterol in HDL [Mass ratio] 3.0 {ratio} <5.0 [facility] Thyrotropin [Units/volume] i n Serum or PlasmaOrdered By: Shubham Ding on 09-29-2022 TSH Qn 0.75 m[IU]/L 0.45-5.33 [facility] Triglyceride [Mass/volume] i n Serum or PlasmaOrdered By: Shubham Ding on 09-29-2022 Triglyceride [Mass/Vol] 62 mg/dL 0-149 [facility] Comment on above: TRIG ATP III CLASSIF ICATIONTRIG less than 150 mg/dL NormalTRIG 150-199 mg/dL Borderline highTRIG 200-500 mg/dL High TRIG greater than 500 mg/dL Very highStandard traceable to the Center for Disease Conrtrol and Prevention (CDC) test method. Vitamin D+Metabolites [Mass/ volume] in Serum or PlasmaOrdered By: Shubham Ding on 09-29-2022 Vitamin D+Metabolites [Mass/Vol] 57.5 ng/mL 30-100 [facility] Comment on above: VITAMIN D STATUS 25( [place])VITAMIN D RANGE (ng/mL) Deficient <20 Insufficient 20 to <30Sufficient 30 to 100Reference: Richy MF,Al LUTZ, Yvonne BUCHANAN, et al. Evaluation,treatment, and prevention of vitamin D deficiency; an Endocrine Society clinical practice guideline. JCEM. 2010; 96(7):1911-30. Cholesterol [Mass/volume] in Serum or PlasmaOrdered By: Shubham Ding on 08-04-2022 Cholesterol [Mass/Vol] 133 mg/dL 140-200 [facility] Comment on above: Chol less than 200 m g/dl low riskChol 201-239 mg/dl borderline riskChol 240 mg/dl and greater high risk Cholesterol in LDL Calc [Mas s/Vol]Ordered By: Shubham Dnig on 08-04-2022 Cholesterol in LDL [Mass/Vol] 69 mg/dL 0-100 [facility] Comment on above: LDL ATP III CLASSIFI CATIONLDL less than 100 mg/dL OptimalLDL 100-129 mg/dL Near or above optimalLDL 130-159 mg/dL Borderline highLDL 160-189 mg/dL HighLDL greater than 189 mg/dL Very high Cholesterol in VLDL Calc [Ma ss/Vol]Ordered By: Shubham Ding on 08-04-2022 Cholesterol in VLDL [Mass/Vol] 17 mg/dL [facility] Serum or plasma high density lipoprotein (HDL) cholesterol measurementOrdered By: Shubham Ding on 08-04-2022 Cholesterol in HDL [Mass/Vol] 47 mg/dL 29-71 [facility] Comment on above: HDL CHOL ATP-III CLA SSIFICATION Cardiovascular RiskHDL > or equal to 60 mg/dL LOWHDL < 40 mg/dL HIGH Serum or plasma total choles terol/high density lipoprotein (HDL) cholesterol mass ratOrdered By: Shubham Ding on 08-04-2022 Cholesterol.total/Abi sterol in HDL [Mass ratio] 2.8 {ratio} <5.0 [facility] Thyrotropin [Units/volume] i n Serum or PlasmaOrdered By: Shubham Ding on 08-04-2022 TSH Qn 0.91 m[IU]/L 0.45-5.33 [facility] Triglyceride [Mass/volume] i n Serum or PlasmaOrdered By: Shubham Ding on 08-04-2022 Triglyceride [Mass/Vol] 86 mg/dL 0-149 [facility] Comment on above: TRIG ATP III CLASSIF ICATIONTRIG less than 150 mg/dL NormalTRIG 150-199 mg/dL Borderline highTRIG 200-500 mg/dL High TRIG greater than 500 mg/dL Very highStandard traceable to the Center for Disease Conrtrol and Prevention (CDC) test method. Vitamin D+Metabolites [Mass/ volume] in Serum or PlasmaOrdered By: Shubham Ding on 08-04-2022 Vitamin D+Metabolites [Mass/Vol] 46.3 ng/mL 30-100 [facility] Comment on above: VITAMIN D STATUS 25( [place])VITAMIN D RANGE (ng/mL) Deficient <20 Insufficient 20 to <30Sufficient 30 to 100Reference: Richy MF,Al NC, Yvonne BUCHANAN, et al. Evaluation,treatment, and prevention of vitamin D deficiency; an Endocrine Society clinical practice guideline. JCEM. 2010; 96(7):1911-30. Alanine aminotransferase [En zymatic activity/volume] in Serum or PlasmaOrdered By: Christiano Pehlps on 08-03-2022 ALT [Catalytic activity/Vol] 26 U/L 7-52 [facility] Albumin [Mass/volume] in Ser um or Plasma by Bromocresol green (BCG) dye binding methoOrdered By: Christiano Phelps on 08-03-2022 Albumin BCG dye [Mass/Vol] 3.9 g/dL 3.5-5.7 [facility] Alkaline phosphatase [Enzyma tic activity/volume] in Serum or PlasmaOrdered By: Christiano Phelps on 08-03-2022 ALP [Catalytic activity/Vol] 64 U/L 34-104 [facility] Amphetamine Screen Ql (U)Ord ered By: Christiano Phelps on 08-03-2022 Amphetamines Ql (U) Negative Negative [facility] Aspartate aminotransferase [ Enzymatic activity/volume] in Serum or PlasmaOrdered By: Christiano Phelps on 08-03-2022 AST [Catalytic activity/Vol] 19 U/L 13-39 [facility] Barbiturates [Presence] in U rine by Screen methodOrdered By: Christiano Phelps on 08-03-2022 Barbiturates Screen Ql (U) Negative Negative [facility] Basophils Auto (Bld) [#/Vol] Ordered By: Christiano Phelps on 08-03-2022 Basophils (Bld) [#/Vol] 0.0 10*3/uL 0.0-0.2 [facility] Basophils/100 WBC Auto (Bld) Ordered By: Christiano Phelps on 08-03-2022 Basophils/100 WBC (Bld) 0.3 % . [facility] Benzodiazepines Screen Ql (U )Ordered By: Christiano Phelps on 08-03-2022 Benzodiazepines Ql (U) Negative Negative [facility] Benzoylecgonine [Presence] i n Urine by Screen methodOrdered By: Christiano Phelps on 08-03-2022 Benzoylecgonine Screen Ql (U) Negative Negative [facility] Bilirubin Test strip Ql (U)O rdered By: Christiano Phelps on 08-03-2022 Bilirubin Ql (U) Negative Negative [facility] Bilirubin.total [Mass/volume ] in Serum or PlasmaOrdered By: Christiano Phelps on 08-03-2022 Bilirubin [Mass/Vol] 0.4 mg/dL 0.3-1.0 [facility] Calcium [Mass/volume] in Ser um or PlasmaOrdered By: Christiano Phelps on 08-03-2022 Calcium [Mass/Vol] 8.9 mg/dL 8.6-10.3 [facility] Cannabinoids [Presence] in U rine by Screen methodOrdered By: Christiano Phelps on 08-03-2022 Cannabinoids Screen Ql (U) Positive Negative [facility] Comment on above: These are unconfirme d results and should not be used for legal purposes. Drug Cut-Off Concentration: AMPH 1000 ng/mL DEANGELO 200 ng/mL BEATRIZ 200 ng/mL COCM 300 ng/mL OP 300 ng/mL PCP 25 ng/mL THC 20 ng/mL Carbon dioxide, total [Moles /volume] in Serum or PlasmaOrdered By: Christiano Phelps on 08-03-2022 CO2 [Moles/Vol] 32.6 mmol/L 21.0-31.0 [facility] Chloride [Moles/volume] in S messi or PlasmaOrdered By: Christiano Phelps on 08-03-2022 Chloride [Moles/Vol] 104 mmol/L 98-107 [facility] Color Auto (U)Ordered By: Radames red Mattie on 08-03-2022 Color (U) Yellow Yellow [facility] Creatinine [Mass/volume] in Serum or PlasmaOrdered By: Christiano Phelps on 08-03-2022 Creatinine [Mass/Vol] 0.77 mg/dL 0.70-1.30 [facility] Eosinophils Auto (Bld) [#/Vo l]Ordered By: Christiano Phelps on 08-03-2022 Eosinophils (Bld) [#/Vol] 0.1 10*3/uL 0.0-0.45 [facility] Eosinophils/100 WBC Auto (Bl d)Ordered By: Christiano Phelps on 08-03-2022 Eosinophils/100 WBC (Bld) 1.7 % . [facility] Erythrocyte distribution wid th Auto (RBC) [Ratio]Ordered By: Christiano Phelps on 08-03-2022 Erythrocyte distribution width (RBC) [Ratio] 13.5 % 12.0-14.8 [facility] Ethanol [Mass/volume] in Ser um or PlasmaOrdered By: Christiano Phelps on 08-03-2022 Ethanol [Mass/Vol] mg/dL [facility] Ethanol [Mass/Vol] TNP [facility] Comment on above: Test not performed Globulin Calc (S) [Mass/Vol] Ordered By: Christiano Phelps on 08-03-2022 Globulin (S) [Mass/Vol] 2.7 g/dL [facility] Glucose [Mass/volume] in Ser um or PlasmaOrdered By: Christiano Phepls on 08-03-2022 Glucose [Mass/Vol] 86 mg/dL 70-100 [facility] Comment on above: ADA recommended refe rence rangeRandom Glucose Reference Range is dependent on time and content of last meal. Glucose of more than 200 mg/dL in a nonstressed, ambulatory subject supports the diagnosis of Diabetes Mellitus. Hematocrit Auto (Bld) [Volum e fraction]Ordered By: Christiano Phelps on 08-03-2022 Hematocrit (Bld) [Volume fraction] 43.8 % 38.8-50.0 [facility] Hemoglobin [Mass/volume] in BloodOrdered By: Christiano Phelps on 08-03-2022 Hemoglobin (Bld) [Mass/Vol] 14.6 g/dL 13.0-17.0 [facility] Ketones Auto test strip (U) [Mass/Vol]Ordered By: Christiano Phelps on 08-03-2022 Ketones (U) [Mass/Vol] Trace Negative [facility] Leukocytes [#/volume] correc michael for nucleated erythrocytes in Blood by Automated counOrdered By: Christiano Phelps on 08-03-2022 WBC corrected for nucl RBC Auto (Bld) [#/Vol] 5.2 10*3/uL 4.1-10.5 [facility] Lymphocytes Auto (Bld) [#/Vo l]Ordered By: Christiano Phelps on 08-03-2022 Lymphocytes (Bld) [#/Vol] 1.2 10*3/uL 1.00-4.8 [facility] Lymphocytes/100 WBC Auto (Bl d)Ordered By: Christiano Phelps on 08-03-2022 Lymphocytes/100 WBC (Bld) 23.9 % . [facility] MCH Auto (RBC) [Entitic mass ]Ordered By: Christiano Phelps on 08-03-2022 MCH (RBC) [Entitic mass] 28.8 pg 27.5-35.2 [facility] MCHC Auto (RBC) [Mass/Vol]Or dered By: Christiano Phelps on 08-03-2022 MCHC (RBC) [Mass/Vol] 33.5 g/dL 32.5-35.6 [facility] MCV Auto (RBC) [Entitic vol] Ordered By: Christiano Phelps on 08-03-2022 MCV (RBC) [Entitic vol] 86.2 fL 83.5-101 [facility] Monocyte distribution width [Entitic volume] in Blood by AutomatedOrdered By: Christiano Phelps on 08-03-2022 Monocyte distribution width Auto (Bld) [Entitic vol] 18.07 % 0.00-20.00 [facility] Monocytes Auto (Bld) [#/Vol] Ordered By: Christiano Phelps on 08-03-2022 Monocytes (Bld) [#/Vol] 0.4 10*3/uL 0.0-0.8 [facility] Monocytes/100 WBC Auto (Bld) Ordered By: Christiano Phelps on 08-03-2022 Monocytes/100 WBC (Bld) 8.3 % . [facility] Neutrophils Auto (Bld) [#/Vo l]Ordered By: Christiano Phelps on 08-03-2022 Neutrophils (Bld) [#/Vol] 3.4 10*3/uL 1.8-7.7 [facility] Neutrophils/100 WBC Auto (Bl d)Ordered By: Christiano Phelps on 08-03-2022 Neutrophils/100 WBC (Bld) 65.8 % . [facility] Nitrite Test strip Ql (U)Ord ered By: Christiano Phelps on 08-03-2022 Nitrite Ql (U) Negative Negative [facility] No Panel InformationOrdered By: Christiano Phelps on 08-03-2022 Estimated GFR (CKD-EPI) > 60.0 mL/Min [facility] Creatinine Clearance (Chem 144.27 [facility] Nucleated erythrocytes [Pres ence] in Blood by Automated countOrdered By: Christiano Phelps on 08-03-2022 Nucleated RBC Auto Ql (Bld) 0.2 /100{WBC} 0-0.5 [facility] Opiates [Presence] in Urine by Screen methodOrdered By: Christiano Phelps on 08-03-2022 Opiates Screen Ql (U) Negative Negative [facility] Phencyclidine Screen Ql (U)O rdered By: Christiano Phelps on 08-03-2022 Phencyclidine Ql (U) Negative Negative [facility] Platelet mean volume Auto (B ld) [Entitic vol]Ordered By: Christiano Phelps on 08-03-2022 Platelet mean volume (Bld) [Entitic vol] 8.8 fL 6.6-10.1 [facility] Platelets Auto (Bld) [#/Vol] Ordered By: Christiano Phelps on 08-03-2022 Platelets (Bld) [#/Vol] 201 10*3/uL 150-450 [facility] Potassium [Moles/volume] in Serum or PlasmaOrdered By: Christiano Phelps on 08-03-2022 Potassium [Moles/Vol] 4.0 mmol/L 3.5-5.1 [facility] Protein Auto test strip (U) [Mass/Vol]Ordered By: Christiano Phelps on 08-03-2022 Protein (U) [Mass/Vol] Negative Negative [facility] Protein [Mass/volume] in Ser um or PlasmaOrdered By: Christiano Phelps on 08-03-2022 Protein [Mass/Vol] 6.6 g/dL 6.4-8.9 [facility] RBC Auto (Bld) [#/Vol]Ordere d By: Christiano Phelps on 08-03-2022 RBC (Bld) [#/Vol] 5.08 10*6/uL 3.90-5.60 [facility] Serum or plasma albumin/glob ulin mass ratioOrdered By: Christiano Phelps on 08-03-2022 Albumin/Globulin [Mass ratio] 1.4 {ratio} [facility] Serum or plasma anion gap de terminationOrdered By: Christiano Phelps on 08-03-2022 Anion gap [Moles/Vol] 6.4 mmol/L 6.0-15.0 [facility] Sodium [Moles/volume] in Ser um or PlasmaOrdered By: Christiano Phelps on 08-03-2022 Sodium [Moles/Vol] 139 mmol/L 136-145 [facility] Specific gravity Auto test s trip (U) [Rel density]Ordered By: Christiano Phelps on 08-03-2022 Specific gravity (U) [Rel density] 1.023 1.001-1.030 [facility] Urea nitrogen [Mass/volume] in Serum or PlasmaOrdered By: Christiano Phelps on 08-03-2022 Urea nitrogen [Mass/Vol] 12 mg/dL 7-25 [facility] Urine clarity by refractomet ry automatedOrdered By: Christiano Phelps on 08-03-2022 Clarity Refractometry automated (U) Clear Clear [facility] Urine glucose measurement by automated test strip (mass/volume)Ordered By: Christiano Phelps on 08-03-2022 Glucose Auto test strip (U) [Mass/Vol] Normal mg/dL Normal [facility] Urine hemoglobin detection b y automated test stripOrdered By: Christiano Phelps on 08-03-2022 Hemoglobin Auto test strip Ql (U) Negative Negative [facility] Urine leukocyte esterase det ection by automated test stripOrdered By: Christiano Phelps on 08-03-2022 Leukocyte esterase Auto test strip Ql (U) Negative Negative [facility] Urobilinogen Auto test strip (U) [Mass/Vol]Ordered By: Christiano Phelps on 08-03-2022 Urobilinogen (U) [Mass/Vol] Normal mg/dL Normal [facility] WBC Auto (Bld) [#/Vol]Ordere d By: Christiano Phelps on 08-03-2022 WBC (Bld) [#/Vol] 5.2 10*3/uL 4.1-10.5 [facility] pH Auto test strip (U)Ordere d By: Christiano Phelps on 08-03-2022 pH (U) 7.5 [pH] 5.0-9.0 [facility] Cholesterol [Mass/volume] in Serum or PlasmaOrdered By: Brandon Ca on 06-13-2022 Cholesterol [Mass/Vol] 118 mg/dL 140-200 [facility] Comment on above: Chol less than 200 m g/dl low riskChol 201-239 mg/dl borderline riskChol 240 mg/dl and greater high risk Cholesterol in LDL Calc [Mas s/Vol]Ordered By: Brandon Ca on 06-13-2022 Cholesterol in LDL [Mass/Vol] 66 mg/dL 0-100 [facility] Comment on above: LDL ATP III CLASSIFI CATIONLDL less than 100 mg/dL OptimalLDL 100-129 mg/dL Near or above optimalLDL 130-159 mg/dL Borderline highLDL 160-189 mg/dL HighLDL greater than 189 mg/dL Very high Cholesterol in VLDL Calc [Ma ss/Vol]Ordered By: Brandon Ca on 06-13-2022 Cholesterol in VLDL [Mass/Vol] 10 mg/dL [facility] Serum or plasma high density lipoprotein (HDL) cholesterol measurementOrdered By: Brandon Ca on 06-13-2022 Cholesterol in HDL [Mass/Vol] 42 mg/dL 29 [facility] Comment on above: HDL CHOL ATP-III CLA SSIFICATION Cardiovascular RiskHDL > or equal to 60 mg/dL LOWHDL < 40 mg/dL HIGH Serum or plasma total choles terol/high density lipoprotein (HDL) cholesterol mass ratOrdered By: Brandon Ca on 06-13-2022 Cholesterol.total/Abi sterol in HDL [Mass ratio] 2.8 {ratio} <5.0 [facility] Thyrotropin [Units/volume] i n Serum or PlasmaOrdered By: Brandon Ca on 06-13-2022 TSH Qn 1.03 m[IU]/L 0.45-5.33 [facility] Triglyceride [Mass/volume] i n Serum or PlasmaOrdered By: Brandon Ca on 06-13-2022 Triglyceride [Mass/Vol] 52 mg/dL 0-149 [facility] Comment on above: TRIG ATP III CLASSIF ICATIONTRIG less than 150 mg/dL NormalTRIG 150-199 mg/dL Borderline highTRIG 200-500 mg/dL High TRIG greater than 500 mg/dL Very highStandard traceable to the Center for Disease Conrtrol and Prevention (CDC) test method. Vitamin D+Metabolites [Mass/ volume] in Serum or PlasmaOrdered By: Brandon Ca on 06-13-2022 Vitamin D+Metabolites [Mass/Vol] 50.0 ng/mL 30-100 [facility] Comment on above: VITAMIN D STATUS 25( [place])VITAMIN D RANGE (ng/mL) Deficient <20 Insufficient 20 to <30Sufficient 30 to 100Reference: Richy MF,Al NC, Yvonne BUCHANAN, et al. Evaluation,treatment, and prevention of vitamin D deficiency; an Endocrine Society clinical practice guideline. JCEM. 2010; 96(7):1911-30. ACETAMINOPHENon 06-12-2022 Acetaminophen [Mass/Vol] ug/mL Critically low 10.0-30.0 [facility] Comment on above: Performed By: #### A CET, SALYC, ETH, CMP #### [facility] [address] [place] [address] Dr. Annabella Lara CBC AUTO DIFFon 06-12-2022 BASO # 0.0 103/ul Normal 0.0-0.1 [facility] Comment on above: Performed By: #### C BC #### [facility] [address] [place] [address] Dr. Annabella Lara Basophils/100 WBC (Bld) 0.3 % Normal 0.2-2.0 [facility] Comment on above: Performed By: #### C BC #### [facility] [address] [place] [address] Dr. Annabella Lara EO # 0.0 103/ul Normal 0.0-0.7 [facility] Comment on above: Performed By: #### C BC #### [facility] [address] [place] [address] Dr. Annabella Lara Eosinophils/100 WBC (Bld) 0.5 % Critically low 0.9-7.0 [facility] Comment on above: Performed By: #### C BC #### [facility] [address] [place] [address] Dr. Annabella Lara Erythrocyte distribution width (RBC) [Ratio] 12.1 % Normal 11.0-15.0 [facility] Comment on above: Performed By: #### C BC #### [facility] [address] [place] [address] Dr. Annabella Lara Hematocrit (Bld) [Volume fraction] 46.8 % Normal 42.0-54.0 [facility] Comment on above: Performed By: #### C BC #### [facility] [address] [place] [address] Dr. Annabella Lara Hemoglobin (Bld) [Mass/Vol] 15.9 g/dL Normal 14.0-18.0 [facility] Comment on above: Performed By: #### C BC #### [facility] [address] [place] [address] Dr. Annabella Lara IG # 0.02 10e3/ul Normal 0.00-0.03 [facility] Comment on above: Performed By: #### C BC #### [facility] [address] [place] [address] Dr. Annabella Lara IG % 0.3 % Normal 0.0-0.5 [facility] Comment on above: Performed By: #### C BC #### [facility] [address] [place] [address] Dr. Annabella Lara LYMPH # 1.2 103/ul Normal 1.2-3.8 [facility] Comment on above: Performed By: #### C BC #### [facility] [address] [place] [address] Dr. Annabella Lara Lymphocytes/100 WBC (Bld) 15.9 % Critically low 20.5-60.0 [facility] Comment on above: Performed By: #### C BC #### [facility] [address] [place] [address] Dr. Annabella Lara MANUAL DIFF REQ NO Normal [facility] Comment on above: Performed By: #### C BC #### [facility] [address] [place] [address] Dr. Annabella Lara MCH (RBC) [Entitic mass] 28.9 pg Normal 25.9-34.0 [facility] Comment on above: Performed By: #### C BC #### [facility] [address] [place] [address] Dr. Annabella Lara MCHC (RBC) [Mass/Vol] 34.0 g/dL Normal 29.9-35.2 [facility] Comment on above: Performed By: #### C BC #### [facility] [address] [place] [address] Dr. Annabella Lara MCV (RBC) [Entitic vol] 84.9 fL Normal 80.0-94.0 [facility] Comment on above: Performed By: #### C BC #### [facility] [address] [place] [address] Dr. Annabella Lara MONO # 0.4 103/ul Normal 0.3-0.8 [facility] Comment on above: Performed By: #### C BC #### [facility] [address] [place] [address] Dr. Annabella Lara Monocytes/100 WBC (Bld) 5.6 % Normal 1.7-12.0 [facility] Comment on above: Performed By: #### C BC #### [facility] [address] [place] [address] Dr. Annabella Lara NEUT # 5.9 103/ul Normal 1.4-6.5 [facility] Comment on above: Performed By: #### C BC #### [facility] [address] [place] [address] Dr. Annabella Lara Neutrophils/100 WBC (Bld) 77.4 % Critically high 43.0-75.0 [facility] Comment on above: Performed By: #### C BC #### [facility] [address] [place] [address] Dr. Annabella Lara Platelet mean volume (Bld) [Entitic vol] 10.2 fL Normal 9.5-13.5 [facility] Comment on above: Performed By: #### C BC #### [facility] [address] [place] [address] Dr. Annabella Lara PLT 231 103/ul Normal 150-450 [facility] Comment on above: Performed By: #### C BC #### [facility] [address] [place] [address] Dr. Annabella Lara RBC 5.51 106/ul Normal 4.70-6.10 [facility] Comment on above: Performed By: #### C BC #### [facility] [id number] [address] Annabella Lara WBC 7.6 103/ul Normal 4.0-11.0 [facility] Comment on above: Performed By: #### C BC #### [facility] [id number] [address] Annabella Lara Covid-19 PCR ([facility])on 05-17 SARS-CoV-2 (COVID-19) RNA KATY+probe Ql (Unsp spec) Not detected Normal NOT DETECTED [facility] Comment on above: Result Comment: When [...] for this test is supported by the [place] of Health and Human Service's declaration that [...] used). Performed By: #### C VDTBH #### [facility] [address] [place], [place] [address] Dr. Annabella Lara DRUG SCREEN RAPID (URINE)on 06-12-2022 AMP Negative Normal NEGATIVE [facility] Comment on above: Performed By: #### D RUGRPD ####[facility] [address] [id number][address] Annabella Lara BAR Negative Normal NEGATIVE [facility] Comment on above: Performed By: #### D RUGRPD ####[facility] [address] [place], [place] [address]Dr. Annabella Lara BUP Negative Normal NEGATIVE [facility] Comment on above: Performed By: #### D RUGRPD ####[facility] [address] [place], [place] [address]Dr. Ngozigenna Lara BZO Negative Normal NEGATIVE [facility] Comment on above: Performed By: #### D RUGRPD ####[facility] [address] [place], [place] [address]Dr. Ngozigenna Lara DEQUAN Negative Normal NEGATIVE [facility] Comment on above: Performed By: #### D RUGRPD ####[facility] [address] [place], [place] [address]Dr. Annabella Lara CUT-OFFS SEE BELOW Normal [facility] Comment on above: Result Comment: AMP (Amphetamine): 500ng/mL, BAR (Barbituates): 200 ng/mL, BZO (Benzodiazepines): 150 ng/mL, BUP (Buprenorphine): 10 ng/mL, DEQUAN (Cocaine): 150 ng/mL, mAMP (Methamphetamine): 500 ng/mL, MTD (Methadone): 200 ng/mL, OPI (Opiates): 100 ng/mL, OXY (Oxycodone): 100 ng/mL, PCP (Phencyclidine): 25 ng/mL, PPX (Propoxyphene): 300 ng/mL, THC (Cannabinoids): 50 ng/mL, TCA (Trycyclic Antidepressants): 300 ng/mL Performed By: #### D RUGRPD ####[facility] [address] [place], [place] [address]Dr. Annabella Lara DRUG CUT HEADER DRUG CLASS TEST SYSTEM CUT-OFF CONCENTRATIONS ARE FOLLOWS: Normal [facility] Comment on above: Performed By: #### D RUGRPD ####[facility] [address] [place], [place] [address]Dr. Annabella Lara mAMP Negative Normal NEGATIVE [facility] Comment on above: Performed By: #### D RUGRPD ####[facility] [address] [place], [place] [address]Dr. Annabella Lara MTD Negative Normal NEGATIVE [facility] Comment on above: Performed By: #### D RUGRPD ####[facility] [address] [id number]. Annabella Lara OPI Negative Normal NEGATIVE [facility] Comment on above: Performed By: #### D RUGRPD ####[facility] [address] [address]Dr. Annabella Lara OXY Negative Normal NEGATIVE [facility] Comment on above: Performed By: #### D RUGRPD ####[facility] [address] [address]Dr. Annabella Lara PCP Negative Normal NEGATIVE [facility] Comment on above: Performed By: #### D RUGRPD ####[facility] [address] [address]Dr. Annabella Lara PPX Negative Normal NEGATIVE [facility] Comment on above: Performed By: #### D RUGRPD ####[facility] [address] [place], [place] [address]Dr. Annabella Lara TCA Positive Abnormal NEGATIVE [facility] Comment on above: Performed By: #### D RUGRPD ####[facility] [address] [place], [place] [address]Dr. Annabella Lara THC Positive Abnormal NEGATIVE [facility] Comment on above: Performed By: #### D RUGRPD ####[facility] [address] [address]Dr. Annabella Lara ETHANOL (BLD ALC)on 06-13-19 23 ALC NOTE NOTE: 80 mg/dl is th e legal limit for a blood alcohol level Normal [facility] Comment on above: Performed By: #### A CET, SALYC, ETH, CMP ####[facility] [address] [address]Dr. Annabella Lara Ethanol [Mass/Vol] mg/dL Normal [facility] Comment on above: Performed By: #### A CET, SALYC, ETH, CMP ####[facility] [address] [address]Dr. Ngozigenna Lara PROF 14(COMP METB)on 023 Albumin [Mass/Vol] 4.4 g/dL Normal 3.4-5.0 [facility] Comment on above: Performed By: #### A CET, SALYC, ETH, CMP ####[facility] [address] [place] [address]Dr. Annabella Lara Albumin/Globulin [Mass ratio] 1.3 {ratio} Normal [facility] Comment on above: Performed By: #### A CET, SALYC, ETH, CMP ####[facility] [address] [place] [address]Dr. Annabella Lara ALP [Catalytic activity/Vol] 82 U/L Normal 46-116 [facility] Comment on above: Performed By: #### A CET, SALYC, ETH, CMP ####[facility] [address] [place], [place] [address]Dr. Annabella Lara ALT [Catalytic activity/Vol] 57 U/L Normal 16-63 [facility] Comment on above: Performed By: #### A CET, SALYC, ETH, CMP ####[facility] [address] [place], [place] [address]Dr. Annabella Lara Anion gap [Moles/Vol] 13.6 mmol/L Normal [facility] Comment on above: Performed By: #### A CET, SALYC, ETH, CMP ####[facility] [address] [place], [place] [address]Dr. Annabella Lara AST [Catalytic activity/Vol] 25 U/L Normal 15-37 [facility] Comment on above: Performed By: #### A CET, SALYC, ETH, CMP ####[facility] [address] [place] [address]Dr. Annabella Lara Bilirubin [Mass/Vol] 0.5 mg/dL Normal 0.2-1.0 [facility] Comment on above: Performed By: #### A CET, SALYC, ETH, CMP ####[facility] [address] [place] [address]Dr. Annabella Lara Calcium [Mass/Vol] 9.2 mg/dL Normal 8.5-10.1 [facility] Comment on above: Performed By: #### A CET, SALYC, ETH, CMP ####[facility] [address] [place] [address]Dr. Annabella Lara Chloride [Moles/Vol] 104 mmol/L Normal 98-107 [facility] Comment on above: Performed By: #### A CET, SALYC, ETH, CMP ####[facility] [address] [place] [address]Dr. Annabella Lara CO2 [Moles/Vol] 27.7 mmol/L Normal 21.0-32.0 [facility] Comment on above: Performed By: #### A CET, SALYC, ETH, CMP ####[facility] [address] [place], [place] [address]Dr. Annabella Lara Creatinine [Mass/Vol] 0.71 mg/dL Normal 0.70-1.30 [facility] Comment on above: Performed By: #### A CET, SALYC, ETH, CMP ####[facility] [address] [place], [place] [address]Dr. Annabella Lara EGFR-AF KOSOVAN >60 Normal >=60 [facility] Comment on above: Performed By: #### A CET, SALYC, ETH, CMP ####[facility] [address] [place], [place] [address]Dr. Annabella Lara EGFR-NON AF KOSOVAN >60 Normal >=60 [facility] Comment on above: Performed By: #### A CET, SALYC, ETH, CMP ####[facility] [address] [place] [address]Dr. Annabella Lara Globulin (S) [Mass/Vol] 3.4 g/dL Normal T [facility] Comment on above: Performed By: #### A CET, SALYC, ETH, CMP ####[facility] [address] [place] [address]Dr. Annabella Lara Glucose [Mass/Vol] 96 mg/dL Normal 74-106 [facility] Comment on above: Performed By: #### A CET, SALYC, ETH, CMP ####[facility] [address] [place] [address]Dr. Annabella Lara Potassium [Moles/Vol] 4.3 mmol/L Normal 3.5-5.1 [facility] Comment on above: Performed By: #### A CET, SALYC, ETH, CMP ####[facility] [address] [place] [address]Dr. Annabella Lara Protein [Mass/Vol] 7.8 g/dL Normal 6.4-8.2 [facility] Comment on above: Performed By: #### A CET, SALYC, ETH, CMP ####[facility] [address] [place] [address]Dr. Annabella Lara Sodium [Moles/Vol] 141 mmol/L Normal 136-145 [facility] Comment on above: Performed By: #### A CET, SALYC, ETH, CMP ####[facility] [address] [place] [address]Dr. Annabella Lara Urea nitrogen [Mass/Vol] 13.0 mg/dL Normal 6.4-19.3 [facility] Comment on above: Performed By: #### A CET, SALYC, ETH, CMP ####[facility] [address] [place] [address]Dr. Annabella Lara Urea nitrogen/Creatinine [Mass ratio] 18.3 mg/mg Normal [facility] Comment on above: Performed By: #### A CET, SALYC, ETH, CMP ####[facility] [address] [place] [address]Dr. Annabella Lara SALICYLATEon 06-12-2022 SALICYLATE <2.8 Normal <=19.9 [facility] Comment on above: Performed By: #### A CET, SALYC, ETH, CMP #### [facility] [address] [address] [address] Annabella Lara XR CSPINE MIN 4 [...] [place] Date: 2022-06-04 14:08 Normal [facility] DRUG SCREEN RAPID (URINE)on 05-28-2022 AMP Negative Normal NEGATIVE [facility] Comment on above: Performed By: #### D RUGRPD ####[facility] [address] [place] [address]Dr. Annabella Lara BAR Negative Normal NEGATIVE [facility] Comment on above: Performed By: #### D RUGRPD ####[facility] [address] [place] [address]Dr. Annabella [facility] BUP Negative Normal NEGATIVE [facility] Comment on above: Performed By: #### D RUGRPD ####[facility] [address] [place] [address]Dr. [facility] BZO Negative Normal NEGATIVE [facility] Comment on above: Performed By: #### D RUGRPD ####[facility] [address] [place] [address]Dr. Annabella [facility] DEQUAN Negative Normal NEGATIVE [facility] Comment on above: Performed By: #### D RUGRPD ####[facility] [address] [place] [address]Dr. Annabella [facility] CUT-OFFS SEE BELOW Normal [facility] Comment on above: Result Comment: AMP (Amphetamine): 500ng/mL, BAR (Barbituates): 200 ng/mL, BZO (Benzodiazepines): 150 ng/mL, BUP (Buprenorphine): 10 ng/mL, DEQUAN (Cocaine): 150 ng/mL, mAMP (Methamphetamine): 500 ng/mL, MTD (Methadone): 200 ng/mL, OPI (Opiates): 100 ng/mL, OXY (Oxycodone): 100 ng/mL, PCP (Phencyclidine): 25 ng/mL, PPX (Propoxyphene): 300 ng/mL, THC (Cannabinoids): 50 ng/mL, TCA (Trycyclic Antidepressants): 300 ng/mL Performed By: #### D RUGRPD ####[facility] [address] [place] [id number]. Annabella Lara DRUG CUT HEADER DRUG CLASS TEST SYSTEM CUT-OFF CONCENTRATIONS ARE FOLLOWS: Normal [facility] Comment on above: Performed By: #### D RUGRPD ####[facility] [address] [place] [id number]. Annabella Lara mAMP Negative Normal NEGATIVE [facility] Comment on above: Performed By: #### D RUGRPD ####[facility] [address]ro[address] [place] [id number]. Annabella Lara MTD Negative Normal NEGATIVE [facility] Comment on above: Performed By: #### D RUGRPD ####[facility] Tul[address] [place], [place] [address]Dr. Annabella Lara OPI Negative Normal NEGATIVE [facility] Comment on above: Performed By: #### D RUGRPD ####[facility] [address] [place], [place] [address]Dr. Annabella Lara OXY Negative Normal NEGATIVE [facility] Comment on above: Performed By: #### D RUGRPD ####[facility] [address] [place], [place] [address]Dr. Annabella Lara PCP Negative Normal NEGATIVE [facility] Comment on above: Performed By: #### D RUGRPD ####[facility] [address] [place] [address]Dr. Annabella Lara PPX Negative Normal NEGATIVE [facility] Comment on above: Performed By: #### D RUGRPD ####[facility] [address] [place] [address]Dr. Annabella Lara TCA Positive Abnormal NEGATIVE [facility] Comment on above: Performed By: #### D RUGRPD ####[facility] [address] [place], [place] [address]Dr. Annabella Lara THC Positive Abnormal NEGATIVE [facility] Comment on above: Performed By: #### D RUGRPD ####[facility] [address] [place], [place] [address]Dr. Annabella Lara YESENIA w/Reflex if POSon 2022 Nuclear Ab Ql (S) Negative Invalid Interpretation Code Negative [facility] Comment on above: Result Comment: Perf ormed at: [facility] [address] [id number] PhD Missael Oneal Performed By: #### 2 585631, 2309833, 90325139, 44723723, 5488800, 16566009, 4785183, [id number] #### [facility] [address] [place] [address] Coding Summary.on 04-23-2022 Coding Summary. CD:[id number] G h0bWw+PGhlYWQ+NS8WGVZ lR47emPPbrU8GA2mHOH5A UFFZQXNIDA0BVS1lsLA2K DouW0WpybRc XjrutZYuFI71RMq2SCA7w SjhHCmcpO9zkQZgH4v2Nw TrCL72sT70QZviLDEsPtK 3LjZpbjsgbWFy R6aiJiWeeHQqZab+PHRhY mxlIHdpZHRoPScxMDAlJy WtbGgbRM1bPg7mKFRkEOP vbGxhcHNlOiBj x4rvPEBiOKpnYV0lzRrrH 1XsuWK6CQZpv2y2Ue16bY I+TRDyLYL3uGbbTCbww16 2JuTzm1jhCBX9 vLHcHCogRNL6N00az2A7D FMeUFKrNYV1yXS5eD1nkN tkpukcA9KczMEjJmQ1XGA 2zDTbqN2ctIro ermstW9gMfs+K45RLF2LG WVTOD0MSzl6R1RbZewynA I+YV24UWHnKU67qTVftKA op8knvFs3MuXe ZYKxFKP0nBmyBAbrk5XeE GNkX62ysMYvs2C1CUKejG ladTXqHrBqxXX6oB4aAQe bjqwow4fftadj Ayvmx4paql05zB53Z91nS HhbJZWhLCC0DPRfNEVtcH mqoo1zyB6hHc5+DEbtm8v fj8unoTj6FtVw VPYczdCfbCzyEUN5k7JoX h69E7OehWigt7LaObq1gb 92oTHnw8F3oIT1KEuuDOB hrT4cDLkdXrV5 RWYoYnAjdC13vUDuWWcfK k9lyCickQunOV3bQUYslu ldBKBrwX5gMHZorDUwmQq fBG8iPWGwjezx z381JuFaMWU9XVEkoHViL 2RsoW4tXuEwINJhJDUoC9 TdgZNrQUatC260UXxcMiX 6XTYksrLgC3Bg BBNfvJmzIvN7j0Q2Nn6Zc 8OfkqixHZG2QDapJMDuVh I4HdVlJkO7R1KaXpp1VYU eyNloDE1hB0Cs WOYkyihdlrrwyIT9LFZqA PKirX67uIIbGWxcDf4gq7 V6s708MJVvGWEqvJ46Yf1 udDogMTBwdCBU oL2ivpyhx9wierqhSpCyM NZpXFj9HYi2BOWbiRlxQr VeVOS3OjN7JBP5lPClvQ2 cnVkehhnshD4y Oyc+H14ujR9uQCZ4DGB5n simBYHqxxPbYT50OR75K7 RyPjwvdGFibGU+PGRpdiB ovZnrDF9gPfHt o8zyn6LqBTpkF4SdHJMjX ShcEzc3MMYcGAP7gFS3xE 3iMWGsLRvji5G2zFS0X4X nkhPakr6oy7oy TAMsHRcnG07ogSTnx7Z0F CNevCX7TOGqxTbiOjLbhT 93Oyc+KHQphIkuz0UlLro jl1isi4wanQd3 JdXkOUHfdxFetSjuZRL0y 4VsGv69S28yFMcaAUVmLQ MdSJQvTWIzgTtwbu0gsO0 wIi8+PGNvbCB3 rBV5lF1gQIMwPcT1ATwxV 036JfJrgFJoXxahi7sze1 odoCc6OhPpRIOuehSigIz tQIF8k1LhRh72 A01wGJpkSMNwCXOoQXGdH MWwdVgtul7pkI2wKu6+PC 2dv3alhg02uC43wCJ+PHR oMIT7dMcoBNys QGVvyA3cFDiuWyX5AGIgQ cKawD15eHNbKKzjUz5rbJ ybeKyoAT5pQNSmbgrjt52 4MwPtw6hkLKIn gSOdMNntMPW2S57hk2J9J ATxGLQkLGW6iAG0vO9ktB lnbjogbGVmdDsgdmVydGl kIUneOFjdE284 IHRvcDsnPlBhdGllbnQgT bBqPRb1T0LeJkh3MXYfrK pkVA1dvDWoUFirTr3weGs emDfhYL3rXSIs tirkf614HlGjv7xzXWVmc JXeSPneRPG6Z85wx5H9KX MmHCDiXQJ9sXM8dE8cqNe nbjogbGVmdDsg wtXpvBjzJNtzYBglZ065P HRvcDsnPkJpcnRoIERhdG B8VI79WW81qBVep8D4dHA 4R6JkUEIswaxg dkbmnJW3GRGaVXKmwJ60O x9biUvyUm6qTJDvPBB4RS UgpMNyG1IppC9qQaSpJVI eOGSgR9GsoIOn QIkvZ879JAkjAqG0UNBgh dUgI0QgXQGtvYyxNxI9z1 J4Qs4EU6F0KH65XD79iBF bf2V8rNO3Z0Ei QREmyhfjqwplvEJ0RMLuN DBktU28Rv8oqEjjQd0fMO PzFMF5BLRulGYpM9JjfD5 yOiAjMDAwMDAw W2YwvCAdZRulH494FWumV aY2PWNkvdHxU1TfAUJqgW waGrV3v1C0Hf6LLAk0ZD1 2MX82uGTht1B9 aUN3P7KtLYTesdghtosos BF2GMEyVJFtmC29Vx2wjO svGe2sLDYmVPE7DXBznEQ uN2YhuQ0lQvKi AOAjPTDqH1QlyYPoDCybB 380WUfcDdJ9IKNwzgCvB3 PyJGGhcVlwNsB8j5N2Yj5 KRYRqWX55SAB7 fDB3UN52ZK48W7PjEleej GFibGU+PHRhYmxlIHdpZH RoPScxMDAlJyBzdHlsZT0 wJa0gNYZkUKGn jVwdjVQgYhSik9ijPPVsC DbaGB0tqRfmP1LbvMT3EN Gop6o7Vb90O45dQ0DtuEH +VAZuoTI9fZQ6 oG0cBzNnSnS6XJaiK446E dJiiGOiWuxwa8neh9cekC i6BqB7SJQichYxlBqdNXC 3r1LwSa84I87s IHdpZHRoPSIxNSUiIHZhb Pgspo5liC5eOp1+PGNvbC V6wZO3tV9uFrOrRpU5BNs bJ603EcLtjVPn Txxip6prr1mgtPx4OxBkS LAcfnTwnXhnRLD1n9TbZu 40T7KyfSieg2AuCop1ir1 5kBYak5U6yVZ6 N8SwTLNjfnhyxQTsvPiiL Z1cRVSddgzdXAWymQ4aRK VoV5z2VtVfWaE3RQunA6B jwrO7NEAjoUVl JNqbEHL9C34wj6N2ZBCbO FKzSWT0dMC1pY9wrZexwa ogbGVmdDsgdmVydGljYWw mAJehD308LPXy kIzeGZLvzM0mUHQsyTCys FkrZT8oADLqqeluPdsCVR BZChacWLAYVTdMKW57XT8 1vDRzo4U0wFA7 P9CnWLXwdfoyeuujdNS7O FPlIJIraV61pALbEKaxIn 3dq1N3h616VLYoHLVflS7 7Aj7txOkhDUUw aNQFvQ1kxaasd9pnsxcvP qJxKARpLNn1NGc9CYJmtN snKeDyNXU3ZtI2RAJ1wOL ieT3xhQnogokt lG4dNon+MDcvMTkvMjAwM zwvdGQ+PKZmCHM7fPopTT chGMQpcY3fWGRzH5u1ByZ iMnM3IOjdY5Ik TESatplyFt18kL2yAlThM mW4JGoxN6RzcfL8CGTkwF NyHQqoYCO8O82mc1B8FWS gIQKqTOZ5rLI0 vY3xwBgbkmeizMLzuVzah iNxvAdqPHxeVUgmJ800EG RvkPzoSmG5BKhtJWEuQB4 9MA71nMCzr4G8 iGN4U1QgUZXacpvjhjuww MU4KKHhLUDarP75vSOuDE iwZm2bu2O1f897LSHhZLJ aeT58Ak5clKrq SMTkqXRGnR7ojgfkn6cql ipfYiNpQPAnGYp1UHp0LJ WsbSzxAnOzLKQ7AeG5KHY 8oABtuH8ygEuy avnerY3qVxd+TWFsZTwvd GQ+NJSpWCU6mIlmTOvvDC SvuU3vIPYeF6p3XvDaShC 8HSjgC0WnEKSj pemwEo08wS6gLgUrQbF9A XdyJ5JygbP0WOVviYJbDV pdTCU8P21dg8J4GVOoDJE eIOR6mYH9lE0o bGlnbjogbGVmdDsgdmVyd LloXJhaDVkvL585RPQdqQ ilDt73wLJcyAkcnmY7C9X kPjwvdHI+PC90 ZAUpHR44bQKkpATep9oeu Bv2DqCbWEIrEHT0zDwlLI fez7BdNOZeC34caQWyc3F 6IGNvbGxhcHNl CmCjcGE9cY2xTBdjgsrjl 9afxvlfUtuzw6esmt77aU 59C66mOQlpFJVsSQXmCSI vEDMjpEmxhu8x aF5aDe5+PVYwkCL3nIP9q S7qTlXmLbY8FGbcJ344Kt VdmSRiXetxq6eci7hbpQe 9IjIwJSIgdmFs mDqgMVM4h2VaRz82F00fK HdpZHRoPSIyMCUiIHZhbG onog0ngN6fEs4+MX9oi4j iyc99pX21mWB+ MNLhCGP0xXttSCasFOXma G6bDFjzRpJ1CRKkOcFkuJ 82tLTfECqsEs0kjUjkjRf jSC6tEHHtyghm k403MmOgr9uxKGJbcZQiK MauLOR1A36iu8Y5RLEvSZ WkGAL2tIY7eF2rhFjntke gbGVmdDsgdmVy bQbfKJclIXazT177NKZud XdeSjUyzQTcV1boklZSFJ 1lOjwvdGQ+GCCeRKB4tNu pOBfaHDZznS6s JONqC8p8EsLtGcG2MBevP 4NlxkX8DDGypMVoKCEtqU DZgE8prqubv6rvdzchQwP mTVYpTEi3UGh3 HWEcaMnyYrBoUEP2MjV7A UM9vUVnrF5wyBuyaonnxX 9wOyc+RklOOjwvdGQ+PHR xWEK5dVrbTXpt QJFflL8wIGNaO4r7JzPaT nN0CLloD3ZhisV1VECitY ZiQPLajHRPqZ8gkmnxc3f vcjogIzAwMDAw EGc9SNr2IFTujBzpQgSxR XU6JtP0OLT6qVGuzP4xpN qhmuxzzB1fKlg+TVJOOjw vdGQ+PHRkIHN0 mZaoZXscLKEdvA6jIHVcG 1k4CdCdBpW3MEotO6Cmph W9KLVmeYNcEMApgJKJdB6 lvlnts6quceil EqFnOTDgJOz3KIv8GAFxl IedQvKlMGJ9EbL8LKG1gP JxkQ9cgGfhxrypoU9mMnm +TOZ8RYR2OB09 AP94W7CoQceikJKpyQX+P HRhYmxlIHdpZHRoPScxMD RxXmIviCreHG9dSb1xENV yLWNvbGxhcHNl OiBj (more content not included)... Normal [facility] RF Quanton 04-23-2022 Rheumatoid factor Qn [IU]/mL Invalid Interpretation Code <14.[address] [facility] Comment on above: Result Comment: Perf ormed at: [facility] [address] [id number] PhD Missael Oneal Performed By: #### 2 181708, 8546671, 04963061, 67394755, 8222338, 20293916, 1331150, 50772351 #### [facility] [address] [place] [address] BMPon 04-19-2022 Anion gap [Moles/Vol] 12 mmol/L Normal 6-16 [facility] Comment on above: Performed By: #### 2 530713, 8877412, 74744323, 44494679, 8558477, 96037806, 9901856, 97803680 #### [facility] [address] [place] [address] Calcium [Mass/Vol] 9.7 mg/dL Normal 8.9-11.[address] [facility] Comment on above: Performed By: #### 2 727109, 1774375, 84435633, 74492890, 2505250, 09317286, 4091020, 33631726 #### [facility] [address] [place] [address] Chloride [Moles/Vol] 99 mmol/L Low 101-111 [facility] Comment on above: Performed By: #### 2 585781, 4383241, 05293195, 09965681, 5487747, 18746094, 3454894, 62163338 #### [facility] [address] [place] [address] CO2 [Moles/Vol] 32 mmol/L High 21-31 [facility] Comment on above: Performed By: #### 2 092285, 4307731, 35063027, 39524724, 0842933, 40115246, 8024161, 31673188 #### [facility] [address] [place] [address] Creatinine [Mass/Vol] 0.8 mg/dL Normal 0.5-1.3 [facility] Comment on above: Performed By: #### 2 922120, 4475672, 34951691, 59642943, 9589858, 14854136, 8663927, 39468820 #### [facility] [address] [place] [address] Glucose [Mass/Vol] 92 mg/dL Normal 55-[address] [facility] Comment on above: Result Comment: If t his glucose result represents a fasting glucose, interpretation should refer to the following reference range: 55-99 mg/dL Performed By: #### 2 498099, 6584717, 57593624, 85699844, 9085749, 09942556, 4002158, 92291849 #### [facility] [address] [place] [address] Potassium [Moles/Vol] 4.0 mmol/L Normal 3.5-5.3 [facility] Comment on above: Performed By: #### 2 709641, 9404631, 45240929, 59530121, 7940725, 20313533, 6684034, 38010438 #### [facility] [address] [place] [address] Sodium [Moles/Vol] 139 mmol/L Normal 135-[address] [facility] Comment on above: Performed By: #### 2 620123, 5609068, 15881835, 71547979, 7129681, 74742391, 0853758, 36252806 #### [facility] [address] [place] [address] Urea nitrogen [Mass/Vol] 13 mg/dL Normal 5-[address] [facility] Comment on above: Performed By: #### 2 136374, 7840749, 86196161, 62883215, 0863024, 57820658, 5405629, 95029608 #### [facility] [address] [place] [address] Urea nitrogen/Creatinine [Mass ratio] 16 No Units Normal 10-[address] [facility] Comment on above: Performed By: #### 2 957568, 8530593, 78925307, 46520588, 1295340, 88391640, 1771004, 37310942 #### [facility] [address] [place] [address] CBC w/Indiceson 04-19-2022 Erythrocyte distribution width (RBC) [Ratio] 13.6 % Normal 10.9-14.[address] [facility] Comment on above: Performed By: #### 2 252110, 7895956, 11184635, 01874998, 4321487, 25242637, 8533415, 27304553 #### [facility] [address] [place] [address] Hematocrit (Bld) [Volume fraction] 46.2 % Normal 37.7-49.[address] [facility] Comment on above: Performed By: #### 2 120324, 2735600, 32826110, 21373591, 9935213, 86031753, 3889623, 69864995 #### [facility] [address] [place] [address] Hemoglobin (Bld) [Mass/Vol] 15.9 g/dL Normal 13.5-17.[address] [facility] Comment on above: Performed By: #### 2 362916, 3140455, 84198089, 59093752, 7101567, 90742397, 9113124, 20427196 #### [facility] [address] [id number] MCH (RBC) [Entitic mass] 29.8 pg Normal 27.0-34.[address] [facility] Comment on above: Performed By: #### 2 567309, 3789026, 68735060, 34562845, 9124079, 74899083, 4657680, 30641605 #### [facility] [address] [place], [place] [address] MCHC (RBC) [Mass/Vol] 34.4 g/dL Normal 31.4-36.0 [facility] Comment on above: Performed By: #### 2 089785, 7470576, 95451824, 16658281, 5650466, 83801369, 4293503, 32570159 #### [facility] [address] [place], [place] [address] MCV (RBC) [Entitic vol] 86.5 fL Normal 80.0-100.[address] [facility] Comment on above: Performed By: #### 2 478647, 2359888, 96404536, 04205663, 2381143, 87172998, 9315335, 90697530 #### [facility] [address] [place] [address] Platelet mean volume (Bld) [Entitic vol] 8.6 fL Normal 6.4-10.[address] [facility] Comment on above: Performed By: #### 2 387188, 5316156, 06953855, 33335134, 9208682, 72746338, 8722704, 08955413 #### [facility] [address] [place], [place] [address] Platelets (Bld) [#/Vol] 245.0 E9/L Normal 150.0-500.[address] [facility] Comment on above: Performed By: #### 2 914185, 3974218, 73798085, 87897008, 9809264, 64516954, 2344361, [id number] #### [facility] [address] [place] [address] RBC (Bld) [#/Vol] 5.3 E12/L Normal 4.3-5.[address] [facility] Comment on above: Performed By: #### 2 385342, 8007773, 56880494, 82550484, 7503282, 00461670, 0359341, [id number] #### [facility] [address] [place] [address] WBC corrected for nucl RBC Auto (Bld) [#/Vol] 4.9 E9/L Normal 4.0-11.0 [facility] Comment on above: Performed By: #### 2 438503, [id number], 17999639, 71864434, 9389469, 64623137, 2510813, [id number] #### [facility] [address] [place] [address] CHEMISTRYOrdered By: SYSTEM SYSTEM on 04-19-2022 Anion [...] rate/Area] mL/min/1.73 m2 Normal >=59mL/min/ 1.73 m2 [facility] Chem S GFR/1.73 sq M.predicted among non-blacks MDRD (S/P/Bld) [Vol rate/Area] mL/min/1.73 m2 Normal >=59mL/min/ 1.73 m2 [facility] Chem S Glucose [Mass/Vol] 92 mg/dL Normal 55 - 199 mg/dL [facility] Remisol Potassium [Moles/Vol] 4.0 mmol/L Normal 3.5 - 5.3 mmol/L [facility] Remisol Sodium [Moles/Vol] 139 mmol/L Normal 135 - 145 mmol/L [facility] Remisol Urate [Mass/Vol] 5.1 mg/dL Normal 2.2 - 7.4 mg/dL [facility] Remisol Urea nitrogen [Mass/Vol] 13 mg/dL Normal 5 - 21 mg/dL [facility] Remisol Urea nitrogen/Creatinine [Mass ratio] 16 mg/mg Normal 10 - 20 [facility] Remisol CRPon 04-19-2022 CRP [Mass/Vol] 0.7 mg/dL Normal <=1.9 [facility] Comment on above: Performed By: #### 2 [id number], 8245824, [id number], 63680868, 7379486, 05612237, 9337455, [id number] #### [facility] [address] [place] [address] Consent for Treatmenton Consent for Treatment [id number] .00CD:[address] [facility] HEMATOLOGYOrdered By: Una Bhatti on 04-19-2022 Erythrocyte distribution width (RBC) [Ratio] 13.6 % Normal 10.9 - 14.2 % [facility] Hematocrit (Bld) [Volume fraction] 46.2 % Normal 37.7 - 49.0 % [facility] Hemoglobin (Bld) [Mass/Vol] 15.9 g/dL Normal 13.5 - 17.5 gm/dL [facility] MCH (RBC) [Entitic mass] 29.8 pg Normal 27.0 - 34.0 pg [facility] MCHC (RBC) [Mass/Vol] 34.4 g/dL Normal 31.4 - 36.0 gm/dL [facility] MCV (RBC) [Entitic vol] 86.5 fL Normal 80.0 - 100.0 fL [facility] Platelet mean volume (Bld) [Entitic vol] 8.6 fL Normal 6.4 - 10.8 fL [facility] Platelets (Bld) [#/Vol] 245.0 E9/L Normal 150. 0 - 500.0 E9/L [facility] RBC (Bld) [#/Vol] 5.3 E12/L Normal 4.3 - 5.9 E12/L [facility] Sed Rate Automated 6 mm/h Normal 0 - 19 mm/hr [facility] WBC corrected for nucl RBC Auto (Bld) [#/Vol] 4.9 E9/L Normal 4.0 - 11.0 E9/L [facility] Physician Orderon 04-19-2022 Physician Order [id number]# 1.00CD:[address] [facility] Sed Rate Automatedon 023 Sed Rate Automated 6 mm/hr Normal 0-[address] [facility] Comment on above: Performed By: #### 2 662439, 5666936, 56587363, 81653053, 0952666, 53747105, 0355021, [id number] #### [facility] [address] [place] [address] Uric Acidon 04-19-2022 Urate [Mass/Vol] 5.1 mg/dL Normal 2.2-7.4 [facility] Comment on above: Performed By: #### 2 363673, 4228322, 47904381, 04876761, 6070708, 29022329, 1184129, [id number] #### [facility] [address] [place] [address] eGFRon 04-19-2022 GFR/1.73 sq M.predicted among blacks MDRD (S/P/Bld) [Vol rate/Area] mL/min/{1.73_m2} Normal >=[address] [facility] Comment on above: Order Comment: Order added by Discern Expert. Result Comment: eGFR is race adjusted. AA=. Performed By: #### 2 585558, 9506944, 10096792, 08708969, 0129440, 86554446, 0871633, [id number] #### [facility] [address] [place] [address] GFR/1.73 sq M.predicted among non-blacks MDRD (S/P/Bld) [Vol rate/Area] mL/min/{1.73_m2} Normal >=[address] [facility] Comment on above: Order Comment: Order added by Discern Expert. Result Comment: Scarfing Machine Operator anni kidney disease could be indicated at eGFR's of less than 60 mL/min/1.73m2. Kidney failure is indicated at less than 15 mL/min/1.73m2. Performed By: #### 2 [id number], [id number], [id number], [id number], [id number], [id number], [id number], [id number] #### [facility] [address] [place] [address] ACETAMINOPHENon 01-28-2022 Acetaminophen [Mass/Vol] ug/mL Critically low 10.0-30.0 [facility] Comment on above: Performed By: #### E TH, SALYC, ACET #### [facility] [address] [address] [address] Annabella Lara CBC AUTO DIFFon 01-28-2022 BASO # 0.0 103/ul Normal 0.0-0.1 [facility] Comment on above: Performed By: #### C BC #### [facility] [address] [address] [address] Annabella Lara Basophils/100 WBC (Bld) 0.3 % Normal 0.2-2.0 [facility] Comment on above: Performed By: #### C BC #### [facility] [address] [address] [address] Annabella Lara EO # 0.1 103/ul Normal 0.0-0.7 [facility] Comment on above: Performed By: #### C BC #### [facility] [address] [place] [address] Dr. Annabella Lara Eosinophils/100 WBC (Bld) 2.0 % Normal 0.9-7.0 [facility] Comment on above: Performed By: #### C BC #### [facility] [address] [place] [address] Dr. Annabella Lara Erythrocyte distribution width (RBC) [Ratio] 12.8 % Normal 11.0-15.0 [facility] Comment on above: Performed By: #### C BC #### [facility] [address] [place] [address] Dr. Annabella Lara Hematocrit (Bld) [Volume fraction] 46.9 % Normal 42.0-54.0 [facility] Comment on above: Performed By: #### C BC #### [facility] [address] [place] [address] Dr. Annabella Lara Hemoglobin (Bld) [Mass/Vol] 16.1 g/dL Normal 14.0-18.0 [facility] Comment on above: Performed By: #### C BC #### [facility] [address] [place] [address] Dr. Annabella Lara IG # 0.01 10e3/ul Normal 0.00-0.03 [facility] Comment on above: Performed By: #### C BC #### [facility] [address] [place] [address] Dr. Annabella Lara IG % 0.1 % Normal 0.0-0.5 [facility] Comment on above: Performed By: #### C BC #### [facility] [address] [place] [address] Dr. Annabella Lara LYMPH # 1.2 103/ul Normal 1.2-3.8 [facility] Comment on above: Performed By: #### C BC #### [facility] [address] [place] [address] Dr. Annabella Lara Lymphocytes/100 WBC (Bld) 17.3 % Critically low 20.5-60.0 [facility] Comment on above: Performed By: #### C BC #### [facility] [address] [place] [address] Dr. Annabella Lara MANUAL DIFF REQ NO Normal [facility] Comment on above: Performed By: #### C BC #### [facility] [address] [place] [address] Dr. Annabella Lara MCH (RBC) [Entitic mass] 29.1 pg Normal 25.9-34.0 [facility] Comment on above: Performed By: #### C BC #### [facility] [address] [place] [address] Dr. Annabella Lara MCHC (RBC) [Mass/Vol] 34.3 g/dL Normal 29.9-35.2 [facility] Comment on above: Performed By: #### C BC #### [facility] [address] [place] [address] Dr. Annabella Lara MCV (RBC) [Entitic vol] 84.8 fL Normal 80.0-94.0 [facility] Comment on above: Performed By: #### C BC #### [facility] [address] [place] [address] Dr. Annabella Lara MONO # 0.5 103/ul Normal 0.3-0.8 [facility] Comment on above: Performed By: #### C BC #### [facility] [address] [place] [address] Dr. Annabella Lara Monocytes/100 WBC (Bld) 6.4 % Normal 1.7-12.0 [facility] Comment on above: Performed By: #### C BC #### [facility] [address] [place] [address] Dr. Annabella Lara NEUT # 5.2 103/ul Normal 1.4-6.5 [facility] Comment on above: Performed By: #### C BC #### [facility] [address] [place] [address] Dr. Annabella Lara Neutrophils/100 WBC (Bld) 73.9 % Normal 43.0-75.0 [facility] Comment on above: Performed By: #### C BC #### [facility] [address] [place] [address] Dr. Annabella Lara Platelet mean volume (Bld) [Entitic vol] 10.7 fL Normal 9.5-13.5 [facility] Comment on above: Performed By: #### C BC #### [facility] [address] [place] [address] Dr. Annabella Lara PLT 179 103/ul Normal 150-450 [facility] Comment on above: Performed By: #### C BC #### [facility] [address] [place] [address] Dr. Annabella Lara RBC 5.53 106/ul Normal 4.70-6.10 [facility] Comment on above: Performed By: #### C BC #### [facility] [address] [place] [address] Dr. Annabella Lara WBC 7.0 103/ul Normal 4.0-11.0 [facility] Comment on above: Performed By: #### C BC #### [facility] [address] [place] [address] Dr. Annabella Lara Covid-19 PCR ([facility])on 01-16 SARS-CoV-2 (COVID-19) RNA KATY+probe Ql (Unsp spec) Not detected Normal NOT DETECTED [facility] Comment on above: Result Comment: When [...] for this test is supported by the [place] of Health and Human Service's declaration that [...] be used). Performed By: #### C VDTBH ####[facility] [address] [address]Dr. Annabella Lara DRUG SCREEN RAPID (URINE)on 01-28-2022 AMP Negative Normal NEGATIVE [facility] Comment on above: Performed By: #### D RUGRPD ####[facility] [address] [address]Dr. Annabella Lara BAR Negative Normal NEGATIVE [facility] Comment on above: Performed By: #### D RUGRPD ####[facility] [address] [address]Dr. Annabella Lara BUP Negative Normal NEGATIVE [facility] Comment on above: Performed By: #### D RUGRPD ####[facility] [address] [address]Dr. Annabella Lara BZO Negative Normal NEGATIVE [facility] Comment on above: Performed By: #### D RUGRPD ####[facility] [address] [place], [place] [address]Dr. Annabella Lara DEQUAN Negative Normal NEGATIVE [facility] Comment on above: Performed By: #### D RUGRPD ####[facility] [address] [place], [place] [address]Dr. Annabella Lara CUT-OFFS SEE BELOW Normal [facility] Comment on above: Result Comment: AMP (Amphetamine): 500ng/mL, BAR (Barbituates): 200 ng/mL, BZO (Benzodiazepines): 150 ng/mL, BUP (Buprenorphine): 10 ng/mL, DEQUAN (Cocaine): 150 ng/mL, mAMP (Methamphetamine): 500 ng/mL, MTD (Methadone): 200 ng/mL, OPI (Opiates): 100 ng/mL, OXY (Oxycodone): 100 ng/mL, PCP (Phencyclidine): 25 ng/mL, PPX (Propoxyphene): 300 ng/mL, THC (Cannabinoids): 50 ng/mL, TCA (Trycyclic Antidepressants): 300 ng/mL Performed By: #### D RUGRPD ####[facility] [address] [place], [place] [id number]. Annabella Lara DRUG CUT HEADER DRUG CLASS TEST SYSTEM CUT-OFF CONCENTRATIONS ARE FOLLOWS: Normal [facility] Comment on above: Performed By: #### D RUGRPD ####[facility] [address] [id number]. Annabella Lara mAMP Negative Normal NEGATIVE [facility] Comment on above: Performed By: #### D RUGRPD ####[facility] [address] [id number]. Annabella Lara MTD Negative Normal NEGATIVE [facility] Comment on above: Performed By: #### D RUGRPD ####[facility] [address] [address]Dr. Annabella Lara OPI Negative Normal NEGATIVE [facility] Comment on above: Performed By: #### D RUGRPD ####[facility] [address] [place], [place] [address]Dr. Annabella Lara OXY Negative Normal NEGATIVE [facility] Comment on above: Performed By: #### D RUGRPD ####[facility] [address] [address]Dr. Annabella Lara PCP Negative Normal NEGATIVE [facility] Comment on above: Performed By: #### D RUGRPD ####[facility] [address] [id number] Annabella Lara PPX Negative Normal NEGATIVE [facility] Comment on above: Performed By: #### D RUGRPD ####[facility] [address] [address]Dr. Annabella Lara TCA Negative Normal NEGATIVE [facility] Comment on above: Performed By: #### D RUGRPD ####[facility] [address] [address]Dr. Annabella Lara THC Positive Abnormal NEGATIVE [facility] Comment on above: Performed By: #### D RUGRPD ####[facility] [address] [place], [place] [address]Dr. Annabella Lara ETHANOL (BLD ALC)on 01-29-20 22 ALC NOTE NOTE: 80 mg/dl is th e legal limit for a blood alcohol level Normal [facility] Comment on above: Performed By: #### E THANDRES ACET #### [facility] [address] [place] [address] Dr. Annabella Lara Ethanol [Mass/Vol] mg/dL Normal [facility] Comment on above: Performed By: #### E THANDRES ACET #### [facility] [address] [place] [address] Dr. Annabella Lara PROF 14(COMP METB)on 022 Albumin [Mass/Vol] 4.2 g/dL Normal 3.4-5.0 [facility] Comment on above: Performed By: #### C MP #### [facility] [address] [place] [address] Dr. Annabella Lara Albumin/Globulin [Mass ratio] 1.0 {ratio} Normal [facility] Comment on above: Performed By: #### C MP #### [facility] [address] [place] [address] Dr. Annabella Lara ALP [Catalytic activity/Vol] 82 U/L Normal 46-116 [facility] Comment on above: Performed By: #### C MP #### [facility] [address] [place] [address] Dr. Annabella Lara ALT [Catalytic activity/Vol] 31 U/L Normal 16-63 [facility] Comment on above: Performed By: #### C MP #### [facility] [address] [place] [address] Dr. Annabella Lara Anion gap [Moles/Vol] 6.9 mmol/L Normal [facility] Comment on above: Performed By: #### C MP #### [facility] [address] [place] [address] Dr. Annabella Lara AST [Catalytic activity/Vol] 24 U/L Normal 15-37 [facility] Comment on above: Performed By: #### C MP #### [facility] [address] [place] [address] Dr. Annabella Lara Bilirubin [Mass/Vol] 0.2 mg/dL Normal 0.2-1.0 [facility] Comment on above: Performed By: #### C MP #### [facility] [address] [address] [address] Annabella Lara Calcium [Mass/Vol] 9.2 mg/dL Normal 8.5-10.1 [facility] Comment on above: Performed By: #### C MP #### [facility] [address] [address] [address] Annabella Lara Chloride [Moles/Vol] 103 mmol/L Normal 98-107 [facility] Comment on above: Performed By: #### C MP #### [facility] [address] [address] [address] Annabella Lara CO2 [Moles/Vol] 30.5 mmol/L Normal 21.0-32.0 [facility] Comment on above: Performed By: #### C MP #### [facility] [address] [place] [address] Dr. Annabella Lara Creatinine [Mass/Vol] 0.80 mg/dL Normal 0.70-1.30 [facility] Comment on above: Performed By: #### C MP #### [facility] [address] [place] [address] Dr. Annabella Lara EGFR-AF KOSOVAN >60 Normal >=60 [facility] Comment on above: Performed By: #### C MP #### [facility] [address] [place] [address] Dr. Annabella Lara EGFR-NON AF KOSOVAN >60 Normal >=60 [facility] Comment on above: Performed By: #### C MP #### [facility] [address] [address] [address] Annabella Lara Globulin (S) [Mass/Vol] 4.0 g/dL Normal T [facility] Comment on above: Performed By: #### C MP #### [facility] [address] [address] [address] Annabella Lara Glucose [Mass/Vol] 84 mg/dL Normal 74-106 [facility] Comment on above: Performed By: #### C MP #### [facility] [address] [address] [address] Annabella Lara Potassium [Moles/Vol] 4.4 mmol/L Normal 3.5-5.1 [facility] Comment on above: Performed By: #### C MP #### [facility] [address] [address] [address] Annabella Lara Protein [Mass/Vol] 8.2 g/dL Normal 6.4-8.2 [facility] Comment on above: Performed By: #### C MP #### [facility] [address] [address] [address] Annabella Lara Sodium [Moles/Vol] 136 mmol/L Normal 136-145 [facility] Comment on above: Performed By: #### C MP #### [facility] [address] [address] [address] Annabella Lara Urea nitrogen [Mass/Vol] 12.0 mg/dL Normal 6.4-19.3 [facility] Comment on above: Performed By: #### C MP #### [facility] [address] [address] [address] Annabella Lara Urea nitrogen/Creatinine [Mass ratio] 15.0 mg/mg Normal [facility] Comment on above: Performed By: #### C MP #### [facility] [address] [id number] Annabella Lara SALICYLATEon 01-28-2022 SALICYLATE <2.8 Normal <=19.9 [facility] Comment on above: Performed By: #### E TH, ANDRES, ACET #### [facility] [id number] Annabella Lara Vital Signs Date Time Vital Sign Value Performing Clinician Facility 03-13-2023 07:30-0500 Body temperature 98.2 [degF] [facility] Darin Shammo Work Phone: [facility] 03-13-2023 07:30-0500 Diastolic blood pressure 73 mm[Hg] [facility] Darin Shammo Work Phone: [facility] 03-13-2023 07:30-0500 Heart rate 87 /min [employer] APPRENTICE-BC Darin Shammo Work Phone: [facility] 03-13-2023 07:30-0500 Respiratory rate 16 /min [employer] APPRENTICE-BC Darin Shammo Work Phone: [facility] 03-13-2023 07:30-0500 SaO2% (BldA) [Mass fraction] 97 % [employer] APPRENTICE-BC Darin Shammo Work Phone: [facility] 03-13-2023 07:30-0500 Systolic blood pressure 104 mm[Hg] [employer] APPRENTICE-BC Darin Shammo Work Phone: [facility] 03-11-2023 08:53-0500 Body weight 21.7 kg [employer] APPRENTICE-BC Darin Shammo Work Phone: [facility] 03-10-2023 10:39-0500 Body height 172.72 cm [employer] APPRENTICE-BC Darin Shammo Work Phone: [facility] 2022 07:30-0400 Body temperature 97.4 [degF] [employer] APPRENTICE-BC Darin Shammo Work Phone: [facility] 2022 07:30-0400 Diastolic blood pressure 85 mm[Hg] [employer] APPRENTICE-BC Darin Shammo Work Phone: [facility] 2022 07:30-0400 Heart rate 114 /min [employer] APPRENTICE-BC Darin Shammo Work Phone: [facility] 2022 07:30-0400 SaO2% (BldA) [Mass fraction] 100 % [employer] APPRENTICE-BC Darin Shammo Work Phone: [facility] 2022 07:30-0400 Systolic blood pressure 126 mm[Hg] [employer] APPRENTICE-BC Darin Shammo Work Phone: [facility] 10-02-2022 20:12-0400 Respiratory rate 16 /min [employer]OR APPRENTICE-BC Darin Shammo Work Phone: [facility] 10-01-2022 15:18-0400 Body height 172.72 cm [employer]OR APPRENTICE-BC Darin Shammo Work Phone: [facility] 10-01-2022 09:00-0400 Body weight 70.76 kg [employer] APPRENTICE-BC Darin Shammo Work Phone: [facility] 08-05-2022 15:21-0400 Diastolic blood pressure 70 mm[Hg] [employer] APPRENTICE-BC Darin Shammo Work Phone: [facility] 08-05-2022 15:21-0400 Heart rate 79 /min [employer] APPRENTICE-BC Darin Shammo Work Phone: [facility] 08-05-2022 15:21-0400 Respiratory rate 16 /min [employer] TA[employer]OR APPRENTICE-BC Darin Shammo Work Phone: [facility] 08-05-2022 15:21-0400 SaO2% (BldA) [Mass fraction] 98 % [employer] APPRENTICE-BC Darin Shammo Work Phone: [facility] 08-05-2022 15:21-0400 Systolic blood pressure 111 mm[Hg] [employer] APPRENTICE-BC Darin Shammo Work Phone: [facility] 08-05-2022 07:30-0400 Body temperature 97.6 [degF] [employer] APPRENTICE-BC Darin Shammo Work Phone: [facility] 08-03-2022 12:02-0400 Body height 170.18 cm [employer] TA[employer]OR APPRENTICE-BC Darin Shammo Work Phone: [facility] 08-03-2022 12:02-0400 Body weight 72.57 kg [employer] TA[employer]OR APPRENTICE-BC Darin Shammo Work Phone: [facility] 06-13-2022 07:30-0400 Body temperature 98 [degF] [employer] APPRENTICE-BC Darin Shammo Work Phone: [facility] 06-13-2022 07:30-0400 Diastolic blood pressure 68 mm[Hg] [employer] APPRENTICE-BC Darin Shammo Work Phone: [facility] 06-13-2022 07:30-0400 Heart rate 76 /min [employer] APPRENTICE-BC Darin Shammo Work Phone: [facility] 06-13-2022 07:30-0400 Respiratory rate 18 /min [employer]OR APPRENTICE-BC Darin Shammo Work Phone: [facility] 06-13-2022 07:30-0400 SaO2% (BldA) [Mass fraction] 96 % [employer] APPRENTICE-BC Darin Shammo Work Phone: [facility] 06-13-2022 07:30-0400 Systolic blood pressure 112 mm[Hg] [employer]OR APPRENTICE-BC Darin Shammo Work Phone: [facility] 06-12-2022 20:00-0400 Body height 170.18 cm [employer] TA[employer]OR APPRENTICE-BC Darin Shammo Work Phone: [facility] 06-12-2022 20:00-0400 Body weight 68.94 kg [employer]OR APPRENTICE-BC Darin Shammo Work Phone: [facility] 05-22-2022 13:15-0500 Body height 170.2 cm Cherise Ramirez DMD, MD [facility] 05-22-2022 13:15-0500 Body mass index (BMI) [Ratio] 23.49 kg/m2 Cherise Ramirez DMD, MD [facility] 05-22-2022 13:15-0500 Body weight 68.04 kg Cherise Ramirez DMD, MD Work Phone: [facility] Encounters Encounter Date Encounter Type Care Provider Facility Start: 01-06-2024 End: 01-06-2024 BernyApriuso CogniKpatti Luz NP Work Phone: [facility] Start: 01-06-2024 End: 01-06-2024 Bamboo flowsheet Kimmie Luz COMMUNITY OUTREACH WORKER Work Phone: [facility] Start: 01-06-2024 End: 01-06-2024 ambulatory KIMMIE LUZ Not Available Start: 12-24-2023 End: 01-02-2024 Telephone encounter Hans Seymour PT Work Phone: [facility] Comment on above: re: PT (Contacted to request status for PT due to he was seen per Oleksandr, and was told to cont; we had him scheduled but it was a cx. I recommended [facility], but he noted his father had yesterday. I informed I will fu next week to check if no hear back.); fu (Called to check on status and offered rs'ing if able. I got him in for a reassess on 01/07 w/ Kurtis Laurent, PT.) Start: 12-16-2023 End: 12-16-2023 ambulatory Brandon Ca Facility:[facility] Start: 12-06-2023 End: 12-06-2023 ambulatory ARTI KACY Not Available Start: 11-29-2023 End: 11-29-2023 ambulatory ARTI KACY Not Available Start: 11-26-2023 End: 11-26-2023 ambulatory TAWANNA LAURENT Not Available Start: 11-22-2023 ambulatory [facility] Start: 11-15-2023 End: 11-15-2023 ambulatory JUSTUS Fraire OLEKSANDR Not Available Start: 11-13-2023 ambulatory UNKNOWN PROVIDER Facili ty:[facility] Start: 11-12-2023 End: 11-12-2023 ambulatory KIMMIE LUZ Not Available Start: 07-24-2023 End: 07-26-2023 ambulatory UNKNOWN PROVIDER Facility:[facility] Start: 07-24-2023 End: 07-26-2023 Patient encounter procedure Onur Davila DDS Work Phone: [facility] Start: 07-03-2023 End: 08-17-2023 [facility] Start: 07-03-2023 End: 07-03-2023 ambulatory ELLEN JOSHUA [facility] Start: 05-31-2023 End: 06-03-2023 ambulatory UNKNOWN PROVIDER Facility:[facility] Start: 04-17-2023 ambulatory UNKNOWN PROVIDER Facili ty:[facility] Start: 03-09-2023 End: 03-13-2023 Evaluation and management of inpatient [employer]OP TAILOR APPRENTICE-BC Darin Montoya Work Phone: [facility] Work Phone: Start: 02-22-2023 End: 02-25-2023 Patient encounter procedure Onur Davila DDS Work Phone: [facility] Start: 02-22-2023 End: 02-25-2023 ambulatory UNKNOWN PROVIDER Facility:[facility] Start: 02-06-2023 End: 02-11-2023 ambulatory UNKNOWN PROVIDER Facility:[facility] Start: 02-06-2023 End: 02-11-2023 Patient encounter procedure Onur Davila DDS Work Phone: [facility] Start: 01-21-2023 ambulatory UNKNOWN PROVIDER Facili ty:[facility] Start: 12-28-2022 Telephone encounter Alfonzo grant DDS Work Phone: [facility] Comment on above: Dental Start: 11-16-2022 End: 11-20-2022 Patient encounter procedure Alfonzo Mccord DDS Work Phone: [facility] Start: 10-29-2022 End: 11-01-2022 Patient encounter procedure Alfonzo Mccord DDS Work Phone: [facility] Comment on above: Poor oral hygiene (P rimary Dx) Start: 10-11-2022 End: 10-15-2022 Patient encounter procedure Javed Mendez DDS Work Phone: [facility] Start: 10-08-2022 Orders Only Erum rivera DDS Work Phone: [facility] Start: 10-07-2022 Letter encounter Erum Sheldon matthews DDS Work Phone: [facility] Start: 09-28-2022 End: 2022 Evaluation and management of inpatient [employer] TAILOR APPRENTICE-BC Darin Shammo Work Phone: [facility] [place] [address] Work Phone: Start: 09-27-2022 End: 10-02-2022 Patient encounter procedure Alfonzo Mccord DDS Work Phone: [facility] Start: 09-05-2022 End: 09-10-2022 Patient encounter procedure Erma Rosemary DDS Work Phone: [facility] Start: 08-03-2022 Registered Recurring SHOP TAILOR APPRENTICE-BC Jane sergey Shammo Work Phone: [facility] Start: 08-03-2022 End: 08-05-2022 Evaluation and management of inpatient [employer] TAILOR APPRENTICE-BC Darin Shammo Work Phone: [facility] [place] [address] Work Phone: Start: 07-16-2022 End: 07-18-2022 Patient encounter procedure Esther Menard DMD Work Phone: [facility] Start: 07-05-2022 End: 07-05-2022 Patient encounter procedure Erum Laboy DDS Work Phone: [facility] Comment on above: Arrived Start: 06-18-2022 End: 06-18-2022 Telemedicine consultation with patient Cheries Ramirez DMD, MD Work Phone: [facility] Comment on above: Myofascial pain (Asya ashley Dx) Start: 06-14-2022 End: 07-11-2022 ambulatory [facility] Start: 06-14-2022 End: 06-14-2022 Office outpatient new 45 minutes Erum Laboy DDS Work Phone: [facility] Comment on above: Myalgia of masticati on muscle (Primary Dx); Myalgia of muscle of neck; Arthralgia of right temporomandibular joint Start: 06-12-2022 End: 06-13-2022 Evaluation and management of inpatient [employer] TAILOR APPRENTICE-BC Darin Montoya Work Phone: [facility] Work Phone: Start: 06-12-2022 End: 06-12-2022 ambulatory JOSÉ MANUEL MCKEON . Facility: Start: 06-08-2022 Clinical Support [facility] Start: 06-08-2022 End: 06-08-2022 Follow-up encounter Cherise Ramirez DMD, MD Work Phone: [facility] Start: 06-08-2022 End: 06-08-2022 Patient encounter procedure Cherise Ramirez DMD, MD Work Phone: [facility] Comment on above: Myofascial pain (Asya ashley Dx) Start: 06-05-2022 Telephone encounter Cherise gomes DMD, MD Work Phone: [facility] Comment on above: Urgent TMJ Symptoms Start: 06-04-2022 End: 06-05-2022 ambulatory DARIN MONTOYA Facility:[facility]1 Start: 06-04-2022 End: 06-04-2022 ambulatory DARIN MONTOYA Facility:[facility] Start: 05-28-2022 End: 05-28-[address] JUAN MADRIGAL Facility:[facility] Start: 05-22-2022 End: 05-22-2022 Patient encounter procedure Cherise Ramirez DMD, MD Work Phone: [facility] Comment on above: Myofascial pain (Asya ashley Dx) Start: 04-19-2022 End: 04-20-2022 ambulatory Chu Muñoz Facility[facility] Start: 04-19-2022 End: 04-19-2022 Patient encounter procedure Chu Muñoz [facility] Start: 01-28-2022 End: 01-28-2022 ambulatory PORTER HICKS Facility:[facility] Procedures Date Procedure Procedure Detail Performing Clinician Start: 05-22-2022 panoramic radiograph ic image Sam Enamorado DMD Work Phone: Plan of Treatment Date Care Activity Detail Author Start: 2052 Shingles (RZV) Vacci ne (1 of 2) Shingles (RZV) Vaccine (1 of 2) [facility] Start: 01-08-2024 End: 01-08-2024 ambulatory 01/08/2024 10:00 AM EDT Treatment [facility] [address] [facility] [address] [place] [id number] Tawanna Laurent, PT [facility] Start: 01-06-2024 End: 01-06-2024 Patient encounter procedure [facility] Comment on above: Arrived Start: 08-19-2023 End: 08-19-2023 Patient encounter procedure 08/19/2023 8:30 AM EDT Procedure Visit [facility] [address] [place] [address] Onur Kapadia DDS [address] [place] [address] [facility] Start: 04-17-2023 End: 04-17-2023 Patient encounter procedure 04/17/2023 1:00 PM EST Procedure Visit [facility] [address] [place] [address] Onur Kapadia DDS [address] [place] [address] [facility] Start: 03-27-2023 End: 03-27-2023 Patient encounter procedure 03/27/2023 8:30 AM EST Procedure Visit [facility] [address] [place] [address] Onur Kapadia DDS [address] [place] [address] [facility] Start: 03-25-2023 End: 03-25-2023 Patient encounter procedure 03/25/2023 11:30 AM EST Procedure Visit [facility] [address] [place] [address] Alfonzo Mccord DDS [address] [place] [address] [facility] Start: 03-13-2023 [facility] Start: 03-11-2023 Administration of prophylactic treatment [facility] Start: 03-09-2023 Referral to Exploration Engineer [facility] Start: 03-09-2023 Hospital admission [facility] Start: 02-18-2023 End: 02-18-2023 Patient encounter procedure 02/18/2023 10:30 AM EST Procedure Visit [facility] [address] [place] [address] Alfonzo Mccord DDS [address] [place] [address] [facility] Start: 02-06-2023 End: 02-06-2023 Patient encounter procedure 02/06/2023 1:00 PM EST Procedure Visit [facility] [address] [place] [address] Vaughn Barrera DDS [address] [place] [address] [facility] Start: 01-21-2023 End: 01-21-2023 Patient encounter procedure 01/21/2023 10:30 AM EST Procedure Visit [facility] [address] [place] [address] Alfonzo Mccord DDS [address] [place] [address] [facility] Start: 12-16-2022 Influenza vaccination Influenza Vacc ine (#1) [facility] Start: 11-30-2022 End: 11-30-2022 Patient encounter procedure [facility] Start: 11-16-2022 Influenza vaccination Influenza Vacc ine (#1) [facility] Start: 11-16-2022 End: 11-16-2022 Patient encounter procedure 11/16/2022 10:30 AM EDT Procedure Visit [facility] [address] [place] [address] Alfonzo Mccord DDS [address] [place] [address] [facility] Start: 10-25-2022 End: 10-25-2022 Patient encounter procedure 10/25/2022 11:00 AM EDT Procedure Visit [facility] [address] [place] [address] Alfonzo Mccord DDS [address] [place] [address] [facility] Start: 10-17-2022 End: 10-17-2022 Patient encounter procedure [facility] Start: 10-11-2022 End: 10-11-2022 Patient encounter procedure [facility] Start: 2022 [facility] Start: 09-28-2022 Administration of prophylactic treatment [facility] Start: 09-28-2022 Hospital admission [facility] Start: 09-05-2022 End: 09-05-2022 Patient encounter procedure 09/05/2022 Procedure Visit Dentistry Christian Curtis, DDS [address] [place] [address] [facility] Start: 08-23-2022 End: 08-23-2022 Patient encounter procedure 08/23/2022 Procedure Visit Dentistry Christian Curtis, DDS [address] [place] [address] [facility] Start: 08-05-2022 [facility] Start: 08-03-2022 Referral to Exploration Engineer [facility] Start: 08-03-2022 Hospital admission [facility] Start: 07-16-2022 End: 07-16-2022 Patient encounter procedure 07/16/2022 Procedure Visit Dentistry MessimiguelErum DDTorri [address] [place] [address] [facility] Start: 07-05-2022 End: 07-05-2022 Patient encounter procedure 07/05/2022 Procedure Visit Dentistry Garrykim AUGUSTUS Danielson [address] [place] [address] [facility] Start: 06-29-2022 End: 06-29-2022 Patient encounter procedure 06/29/2022 Procedure Visit Dentistry Erum Laboy DDTorri [address] [place] [address] [facility] Start: 06-18-2022 End: 06-18-2022 Telemedicine consultation with patient [facility] Comment on above: Arrived Start: 06-14-2022 End: 06-14-2022 Patient encounter procedure 06/14/2022 Procedure Visit Dentistry MessimiugelErum DDTorri [address] [place] [address] [facility] Start: 06-13-2022 [facility] Start: 06-12-2022 Hospital admission [facility] Start: 12-16-2021 Influenza vaccination Influenza Vacc ine (#1) [facility] Start: 2021 Hepatitis A (HAV) Vaccine (optional start 19+ years) Hepatitis A (HAV) Vaccine (optional start 19+ years) [facility] Start: 2020 Hepatitis C screening Hepatitis C An tibody [facility] Start: 2020 Tetanus + diphtheria + acellular pertussis vaccine (product) Tdap Booster [facility] Start: 2018 Meningococcal B (Bexsero,OMV) Vaccine (Optional,16-23 years) Meningococcal B (Bexsero,OMV) Vaccine (Optional,16-23 years) [facility] Start: 2018 Meningococcal B (Bexsero,OMV) Vaccine (Optional,16-23 years) (#1) Meningococcal B (Bexsero,OMV) Vaccine (Optional,16-23 years) (#1) [facility] Start: 2017 HIV screening HIV Test [facility] Start: 2013 Vaccination for jose rafael n papillomavirus [facility] Start: 2008 [facility]neum[facility] Start: 04-05-2003 COVID-19 Vaccine (#1) COVID-19 Vacci ne (#1) [facility] Start: 2002 Hepatitis B vaccination Hepati tis B (HBV) Vaccine (1 of 3 - 3-dose series) [facility] Patient Education Depression, Ad tahmina (DC) [facility] [place] Instructions [facility] Work Phone: Patient referral [facility] Work Phone: Payers Date Payer Category Payer Medicaid (Managed Care) [facility] MEDICAID [id number] 2022 Self-pay [id number] 2021 Unknown [id number]. 1.13.56.2.7 .[id number] 2002 Unknown [id number] 2.16.840.1.182107.3.579.2. 727 2002 Unknown [id number] 2.16.840.1.649310.3.579.2. 593 2002 Unknown [id number] 2.16.840.1.882509.3.579.2. 593 2002 Unknown [id number] 2.16.840.1.026097.3.579.2. 593 2002 Unknown [id number] 2.16.840.1.557478.3.579.2. 593 2002 Unknown [id number] 2.16.840.1.271656.3.579.2. 593 2002 Unknown [id number] 2.16.840.1.154611.3.579.2. 1286 2002 Unknown [id number] 2.16.840.1.431173.3.579.2. 1286 2002 Unknown [id number] 2.16.840.1.180324.3.579.2. 1286 2002 Unknown [id number] 2.16.840.1.209378.3.579.2. 732 2002 Unknown [id number] 2.16.840.1.776582.3.579.2. 732 2002 Unknown [id number] 2.16.840.1.158529.3.579.2. 732 2002 Unknown [id number] 2.16.840.1.656500.3.579.2. 732 2002 Unknown [id number] 2.16.840.1.147856.3.579.2. 732 2002 Unknown [id number] 2.16.840.1.473288.3.579.2. 73 2002 Unknown [id number] 2.16.840.1.765652.3.579.2. 2002 Unknown [id number] 2.16.840.1.177455.3.579.2. 2002 Unknown [id number] 2.16.840.1.653499.3.579.2. 9 2002 Unknown [id number] 2.16.840.1.703086.3.579.2. 1258 2002 Unknown [id number] 2.16.840.1.658856.3.579.2. 1258 2002 Unknown [id number] 2.16.840.1.124247.3.579.2. 1258 2002 Unknown [id number] 2.16.840.1.460327.3.579.2. 1258 2002 Unknown [id number] 2.16.840.1.759901.3.579.2. 1258 2002 Unknown [id number] 2.16.840.1.656558.3.579.2. 1259 1959 Unknown [id number] Unknown [id number] 2.16840.1.775510.3.579.2. 531 Unknown [id number] 2.16840.1.373341.3.579.2. 531 Social History Date Type Detail Facility Tobacco smoking status [facility] Start: 05-22-2022 End: 12-16-2023 Sex Assigned At Male [facility] Start: 05-22-2022 [facility] History of tobacco use Cigar Smoker [facility] Start: 05-22-2022 End: 11-12-2023 Tobacco use and exposure Smokeless tobacco non-user [facility] Start: 05-22-2022 Tobacco Comment Patient stated that he smokes marijuana cigars on a daily basis. [facility] Start: 2002 Sex Assigned At Not on file [facility] Start: 06-13-2022 End: 11-12-2023 Tobacco smoking status NHIS Never smoked tobacco (finding) [facility] Start: 2002 Sex Assigned At Male F [facility] Start: 05-22-2022 End: 12-16-2023 History of Social function [facility] Start: 12-16-2023 Alcoholic beverage intake Lifetime non-drinker (finding) [facility] Start: 09-17-2023 Alcohol Comment Caffeine: 1-2 cups per day [facility] Healthcare Goals Date Patient Goal Desired Activity /State Functional Status Date Assessment Result Facility 03-13-2023 Functional status Patient at Baseline [facility] Work Phone: 2022 Functional status Patient at Baseline [facility] Work Phone: 08-05-2022 Functional status Patient at Baseline [facility] Work Phone: 06-13-2022 Functional status Patient at Baseline [facility] Work Phone: Mental Status Date Assessment Result Facility 03-13-2023 Cognitive function Cognitive Sta tus Patient at Baseline [facility] Work Phone: 2022 Cognitive function Cognitive Sta tus Patient at Baseline [facility] Work Phone: 08-05-2022 Cognitive function Cognitive Sta tus Patient at Baseline [facility] Work Phone: 06-13-2022 Cognitive function Cognitive Sta tus Patient at Baseline [facility] Work Phone: Clinical Notes 04-19-2022 to 07-24-2023 Onur Kapadia DDS - 07/24/2023 1:08 PM EDT Note Date & Type Note Facility 07-24-2023 History of Presen t illness Narrative ----- Saturday, July 24, 2023 at 4:26:32 PM ----- ----- Provider: [id number] Resident Michael -- Clinic: [facility] ----- COMPOSITE MU-ISM Patient is scheduled for Holiness on tooth #10-DL and 11-MDL. Reviewed Medical History. Pt exhibited the following conditions: No significant medical history Patient is ready for treatment. Topical Benzocaine gel applied at the injection site for 2 minutes. Administered 1 carpules of Lidocaine, 2% with Epinephrine 1:100,000,. Isolation achieved. Decay/existing tenriism removed, cavity prepared. Selectively etched enamel with 37% phosphoric acid, rinsed, and blot dried. OptiBond delaney applied and light-cured. Condensed packable composite shade a3 in light cured increments using Mylar strip and wedge. Finished with finishing burs, checked occlusion, verified proximal contacts and tenriism was polished. Rinsed and suctioned intraorally, advised patient to not eat until local anesthesia wears off. POST OPERATIVE Periapical (single) RADIOGRAPH TAKEN. 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 It has to be replace in his next appointment Next Visit: Restorative ----- Signed on July at 8:19:57 AM ----- ----- Provider: [id number] - Christian Troncoso DDS -- Clinic: [facility] ----- documented in this encounter [facility] 03-13-2023 Discharge summary Note Date/Time March 13, 2023 11:44am [facility] [address] [place] [address] Discharge Summary Signed Patient: Gerardo Rosenberg MR#: [id number] : 2000 Acct:[id number] Age/Sex: 22 / M Adm Date: 3 Loc: 1S Room: [address] [place] [address]: Shubham Ding MD Copies to: MD Darin Posada, [facility]~ Providers Date of Discharge: 03/13/23 Discharging [...] Living: With family 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 He tolerated [...] Instructions: Important Contact Information You can call [facility] at [phone] any time day or night if you have emergent questions or question regarding discharge instructions. If at any time you are feeling an increase inyour psychiatric symptoms, call your physician or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 [address] [place] [address]28 Physician Oral & Maxillofacial Surgery 06/16/22 Cable Splicing Technician Relationship Specialty Start Date End Date Erum Laboy DDS [address] [place] [id number] Fellow Dentistry 06/16/22 Cherise Ramirez DMD, MD [address] [place] [address] [phone] Physician Oral & Maxillofacial Surgery 06/16/22 Team Status: Active Member Role Status Dates Darin Montoya [facility] Primary Care Provider Active Team Status: Inactive Member Role Status Dates Darin Montoya [facility] Primary Care Provider Active Tana Ca MD Admit Provider, Attending Pr ovider Active Cable Splicing Technician Relationship Specialty Start Date End Date Erum Laboy DDS [address] [place] [address] 66727 Fellow Dentistry 06/16/22 Cherise Ramirez DMD, MD [address] [place] [address] [phone] Physician Oral & Maxillofacial Surgery 06/16/22 Cable Splicing Technician Relationship Specialty Start Date End Date Erum Laboy DDS [address] [place] [address] 40425 Fellow Dentistry 06/16/22 Cherise Ramirez DMD, MD [address] [place] [address] 27455 Physician Oral & Maxillofacial Surgery 06/16/22 Cable Splicing Technician Relationship Specialty Start Date End Date Erum Laboy DDS [address] [place] [address] 50798 Fellow Dentistry 06/16/22 Cherise Ramirez DMD, MD [address] [place] [address] 59740 Physician Oral & Maxillofacial Surgery 06/16/22 Cable Splicing Technician Relationship Specialty Start Date End Date Erum Laboy DDS [address] [place] [address] 98630 Fellow Dentistry 06/16/22 Cherise Rmairez DMD, MD [address] [place] [address] 55155 Physician Oral & Maxillofacial Surgery 06/16/22 Cable Splicing Technician Relationship Specialty Start Date End Date Erum Laboy DDS [address] [place] [address] 16692 Fellow Dentistry 06/16/22 Cherise Ramirez DMD, MD [address] [place] [address] 87425 Physician Oral & Maxillofacial Surgery 06/16/22 Team Status: Inactive Member Role Status Dates Darinomero Montoya , SHOP TAILOR APPRENTICE-BC Primary Care Provider Active Christiano Phelps DO Emergency Provider Active Shubham Ding MD Admit Provider, Attending Provider Active Team Status: Inactive Member Role Status Dates Darin Montoya , SHOP TAILOR APPRENTICE-BC Primary Care Provider Active Shubham Ding MD Admit Provider, Attending Provider Active Team Status: Active Member Role Status Dates Darinomero Montoya , SHOP TAILOR APPRENTICE-BC Primary Care Provider Active Tana Ca MD Attending Provider Active Cable Splicing Technician Relationship Specialty Start Date End Date Erum Laboy DDS [address] [place] [address] 66595 Fellow Dentistry 06/16/22 Cherise Ramirez DMD, MD [address] [place] [address] 47388 Physician Oral & Maxillofacial Surgery 06/16/22 Cable Splicing Technician Relationship Specialty Start Date End Date Erum Laboy DDS [address] [place] [address] Fellow Dentistry 06/16/22 Cherise Ramirez DMD, MD [address] [place] [address] 97557 Physician Oral & Maxillofacial Surgery 06/16/22 Cable Splicing Technician Relationship Specialty Start Date End Date Erum Laboy DDS [address] [place] [address] Fellow Dentistry 06/16/22 Cherise Ramirez DMD, MD [address] [place] [address] 66270 Physician Oral & Maxillofacial Surgery 06/16/22 Alfonzo Mccord DDS [address] [place] [address] 09254 Fellow Dentistry 10/20/22 Cable Splicing Technician Relationship Specialty Start Date End Date Erum Laboy DDS [address] [place] [address] 21664 Fellow Dentistry 06/16/22 Cherise Ramirez DMD, MD [address] [place] [address] 88240 Physician Oral & Maxillofacial Surgery 06/16/22 Alfonzo Mccord DDS [address] [place] [address] 86641 Fellow Dentistry 10/20/22 Cable Splicing Technician Relationship Specialty Start Date End Date Erum Laboy DDS [address] [place] [address] 48687 Fellow Dentistry 06/16/22 Cherise Ramirez DMD, MD [address] [place] [address] 15244 Physician Oral & Maxillofacial Surgery 06/16/22 Alfonzo Mccord DDS [address] [place] [address] 12517 Fellow Dentistry 10/20/22 Cable Splicing Technician Relationship Specialty Start Date End Date Erum Laboy DDS [address] [place] [address] 67554 Fellow Dentistry 06/16/22 Cherise Ramirez DMD, MD [address] [place] [address] 19410 Physician Oral & Maxillofacial Surgery 06/16/22 Alfonzo Mccord DDS [address] [employer] [place] [phone] Fellow Dentistry 10/20/22 Cable Splicing Technician Relationship Specialty Start Date End Date Rosalind Hawley DO [address] [place] [address] Referring Physician Neurology 06/03/23 Keena Alvarez MD [address] [place] [address] Primary Care Provider Family Medicine 11/15/23 Cable Splicing Technician Relationship Specialty Start Date End Date Rosalind Hawley DO [address] [place] [phone] Referring Physician Neurology 06/03/23 Keena Alvarez MD [address] [place] [address] 26164 Primary Care Provider Family Medicine 11/15/23 (unrecognized sect ion and content) No Status Records FoundNo Status Records FoundNo Status Records FoundNo Status Records FoundNo Status Records FoundNo Status Records Found INFORMATION SOURCE (unrecogn ized section and content) DATE CREATED AUTHOR 04/23/2022 [facility] DATE CREATED AUTHOR AUTHOR'S ORGANIZ ATION 06/15/2022 [facility] DATE CREATED AUTHOR AUTHOR'S ORGANIZ ATION 07/21/2022 [facility] DATE CREATED AUTHOR AUTHOR'S ORGANIZ ATION 08/18/2023 [facility] DATE CREATED AUTHOR AUTHOR'S ORGANIZ ATION 11/24/2023 [facility] [employer] [facility] DATE CREATED AUTHOR AUTHOR'S ORGANIZ ATION 12/24/2023 [facility] DATE CREATED AUTHOR AUTHOR'S ORGANIZ ATION 01/08/2024 [facility] EPIC Reason for Visit (unrecogniz ed section and content) Specialty Diagnoses / Procedures Referred By Clint t Referred To Contact Oral Surgery Diagnoses Dental caries Vi Samuel, DDS [address] [place] [address] [facility] ORAL SURGERY [address] [place] [address] Referral ID Status Reason Start Date Expiration Date V isits Requested Visits Authorized [id number] Authorized 04/12/2022 04/12/2023 3 3 Reason Onset Date Comments Urgent TMJ Symptoms 06/05/2022 Reason Comments FOLLOW-UP ORAL SURGERY Reason Onset Date Comments Dental 12/28/2022 Reason Onset Date Comments re: PT 12/24/2023 Contacted to isis garcia status for PT due to he was seen per Oleksandr, and was told to cont; we had him scheduled but it was a cx. I recommended [facility], but he noted his father had yesterday. I informed I will fu next week to check if no hear back. fu 01/02/2024 Called to check on status and offered rs'ing if able. I got him in for a reassess on 01/07 w/ Kurtis Laurent PT. FOR RECORDS PERTAINING TO PATIENTS WHO ARE [...] BE BASED ON THE PRIMARY CLINICAL RECORDS. [employer] provides no warranty or guarantee of the accuracy or completeness of information in this document.
[2024-01-08 14:16] LABS: Basophils Percent Auto 0.4 % (0.2-2.0); Eosinophils Absolute Auto 0.1 10^3/uL (0.0-0.7); Eosinophils Percent Auto 1.7 % (0.9-7.0); Hematocrit 44.3 % (42.0-54.0); Hemoglobin 15.1 g/dL (14.0-18.0); Immature Granulocytes Abs Auto 0.01 10^3/uL (0.00-0.03); Immature Granulocytes Pct Auto 0.2 % (0.0-0.5); Lymphocytes Percent Auto 18.2 % (20.5-60.0); Mean Corpuscular HGB Conc 34.1 g/dL (29.9-35.2); Mean Corpuscular Hemoglobin 29.4 pg (25.9-34.0); Mean Corpuscular Volume 86.4 fL (80.0-94.0); Mean Platelet Volume 9.8 fL (9.5-13.5); Monocytes Absolute Auto 0.4 10^3/uL (0.3-0.8); Monocytes Percent Auto 6.8 % (1.7-12.0); Neutrophils Absolute Auto 3.9 10^3/uL (1.4-6.5); Neutrophils Percent Auto 72.7 % (43.0-75.0); Platelet Count 204 10^3/uL (150-450); Red Blood Count 5.13 10^6/uL (4.70-6.10); Red Cell Distribution Width 12.6 % (11.0-15.0); White Blood Count 5.3 10^3/uL (4.0-11.0)
[2024-01-08 14:22] LABS: C Reactive Protein <0.50 mg/dL (<=0.50); Uric Acid 4.7 mg/dL (3.5-7.2)
[2024-01-09 08:13] LABS: Antistreptolysin O Ab 126.1 IU/mL (0.0-200.0); Rheumatoid Factor (RF) <10.0 IU/mL (<14.0)
[2024-01-11 16:13] LABS: Antinuclear Antibodies, IFA Negative (.)
== END 2024-01-08 13:16 | disposition home or self-care (01) ==
LOC: RAD 13:17
PROVIDERS: PCP Nurse Practitioner Family; Visit Provider Family Medicine
DX: G89.29 Other chronic pain (principal); M25.50 Pain in unspecified joint; M85.80 Other specified disorders of bone density and structure, unspecified site
CPT/HCPCS: 36415; 77080; 82550; 84550; 85025; 85652; 86038; 86060; 86140; 86431

== ENCOUNTER 2024-01-08 13:20 | Outpatient (OUT) | payer OTHER, SELFPAY ==
--- OUTSIDE RECORDS SUMMARY | 2024-01-08 13:42 | XMS_ITS | CCD ---
Author Organization [facility] Care Team Providers Care Ground Crewman Mission Support Name Role Phone Juan Madrigal Primary Care [...] DARIN Consulting Unavailable Vasilyeva DDS, Erum Unavailable [phone] Ashley ALVAREZ MD, Cherise Unavailable [phone] Shammo, GLOBAL COMMODITY MANAGER-BC Darin T Primary Care Provider [phone] MD Tana Ca Admit Provider MD Tana Ca Attending Provider Shammo, GLOBAL COMMODITY MANAGER-BC Darin T Primary Care Provider DO Christiano Phelps Emergency Provider Timur, MD Shubham Admit Provider [phone] MD Timur Shubham Attending Provider [phone] MD Tana Ca Attending Provider [phone] Narda DDS, Erum Unavailable Suri DDS, Parveez Unavailable Shammo, GLOBAL COMMODITY MANAGER-BC Darin T Primary Care Provider MD Timur Shubham Admit Provider MD Mariana Dingmi Attending Provider [phone] Ashley ALVAREZ MD, Cherise Unavailable ELLEN JOSHUA [...] Interpretation Reference Range Facility Progress Noteson 11-22-2023 Electrical Service Technician Authentication Interface Message Text Normal [facility] [facility] Electrical Service Technician Authentication Interface Message Text ----- Wednesday, November 22, 2023 at 1:34:35 PM ----- ----- Provider: [id number] Constance -- Clinic: [facility] [place] ----- LIMITED EXAM Patient presents for Emergency appointment with a CC of fracture of the mesial cheondoism tooth # 10 area of their mouth. [...] patient. Patient consented to treatment today. COMPOSITE JAINISM Patient is scheduled for Tenriism on tooth #10 surface MLF. Reviewed Medical History. Pt exhibited the following conditions: No significant medical history Patient is ready for treatment. Topical Benzocaine gel applied at the injection site for 2 minutes. Administered 1 carpules of . cotton roll isolation achieved. Decay/existing cheondoism removed, cavity prepared. Selectively etched enamel with 37% phosphoric acid, rinsed, and blot dried. Xeno IV delaney applied and light-cured. Condensed packable composite shade A2 in light cured increments using Mylar strip and wedge. Finished with finishing burs, checked occlusion, verified proximal contacts and cheondoism was polished. Rinsed and suctioned intraorally, advised patient to not eat until local anesthesia wears off. POST OPERATIVE Periapical (single) RADIOGRAPH TAKEN. Next Visit: Extraction (single) ----- Signed on Wednesday, November 22, 2023 at 1:53:10 PM ----- ----- Provider: [id number] - Christian Troncoso DDS -- Clinic: [facility] ----- [facility]on 07-24-2023 Electrical Service Technician Authentication Interface Message Text ----- Monday, July 24, 2023 at 4:26:32 PM ----- ----- Provider: [id number] - Resident Nithya -- Clinic: [facility] [place] ----- COMPOSITE JAINISM Patient is scheduled for Tenriism on tooth #10-DL and 11-MDL. Reviewed Medical History. Pt exhibited the following conditions: No significant medical history Patient is ready for treatment. Topical Benzocaine gel applied at the injection site for 2 minutes. Administered 1 carpules of Lidocaine, 2% with Epinephrine 1:100,000,. Isolation achieved. Decay/existing cheondoism removed, cavity prepared. Selectively etched enamel with 37% phosphoric acid, rinsed, and blot dried. OptiBond delaney applied and light-cured. Condensed packable composite shade a3 in light cured increments using Mylar strip and wedge. Finished with finishing burs, checked occlusion, verified proximal contacts and cheondoism was polished. Rinsed and suctioned intraorally, advised patient to not eat until local anesthesia wears off. POST OPERATIVE Periapical (single) RADIOGRAPH TAKEN. NOTE: In the post op x ray I saw that mesial cheondoism on # 10 was fractured. It has to be replace in his next appointment Next Visit: Restorative ----- Signed on July at 8:19:57 AM ----- ----- Provider: [id number] - Christian Troncoso DDS -- Clinic: [facility] [place] ----- Normal [facility] XR SPINE CERVICAL 4 OR 5 [...] Chu Adkins on 07/05/2023 4:09 PM Normal [facility] Progress Noteson 05-31-2023 Electrical Service Technician Authentication Interface Message Text [facility], pt is ready for tx. Pt is [...] NV: RESTOTooth: 6 Surface: DL Normal [facility] [facility] Electrical Service Technician Authentication Interface Message Text ----- Wednesday, May 31, 2023 at 1:45:00 PM ----- ----- Provider: [id number] Tessa Nicholas, -- Clinic: [facility] [place] ----- COMPOSITE JAINISM Patient is scheduled for Tenriism on tooth #6 surface DL. Reviewed Medical History. Pt exhibited the following conditions: No significant medical history Patient is ready for treatment. Topical Benzocaine gel applied at the injection site for 2 minutes. Administered 1 carpules of Lidocaine, 2% with Epinephrine 1:100,000,. Decay/existing cheondoism removed, cavity prepared. Selectively etched enamel with 37% phosphoric acid, rinsed, and blot dried. Xeno IV delaney applied and light-cured. Condensed packable composite shade A2 in light cured increments using Toffelmaire matrix band retainer and wedge. Finished with finishing burs, checked occlusion, verified proximal contacts and cheondoism was polished. Rinsed and suctioned intraorally, advised patient to not eat until local anesthesia wears off. POST OPERATIVE Periapical (single) RADIOGRAPH TAKEN. Next Visit: Restorative ----- Signed on Friday, June 02, 2023 at 9:01:27 AM ----- ----- Provider: [id number] - Ruel Cruz DMD -- Clinic: [facility] [place] ----- Normal [facility] Progress Noteson 03-25-2023 Electrical Service Technician Authentication Interface Message Text ----- Saturday, March 25, 2023 at 8:30:40 AM ----- ----- Provider: [id number] - Candy Womack -- Clinic: [facility] [place] ----- Patient messaged (EPIC) me at 8:20 [...] muscle. He also inquired last month on [facility] for a provider closer to him for [...] - local anesthetic or steroid. Normal [facility] [facility] Cholesterol [Mass/volume] in Serum or PlasmaOrdered By: Shubham Ding on 03-10-2023 Cholesterol [Mass/Vol] 117 mg/dL Low 140-200 [facility] Comment on above: Chol less than 200 m g/dl low riskChol 201-239 mg/dl borderline riskChol 240 mg/dl and greater high risk Result Comment: Chol less than 200 mg/dl low risk Chol 201-239 mg/dl borderline risk Chol 240 mg/dl and greater high risk Performed By: #### V [id number], LIPID, TSH3 wRFLX #### [facility] [address] [id number] [facility] Cholesterol in LDL Calc [Mas s/Vol]Ordered By: Shubham Timur on 03-10-2023 Cholesterol in LDL [Mass/Vol] 64 mg/dL 0-100 [facility] Comment on above: LDL ATP III CLASSIFI CATIONLDL less than 100 mg/dL OptimalLDL 100-129 mg/dL Near or above optimalLDL 130-159 mg/dL Borderline highLDL 160-189 mg/dL HighLDL greater than 189 mg/dL Very high Cholesterol in VLDL Calc [Ma ss/Vol]Ordered By: Shubham Timur on 03-10-2023 Cholesterol in VLDL [Mass/Vol] 8 mg/dL [facility] Lipid Panelon 03-10-2023 LDL Cholesterol,Calculated 64 mg/dL Normal 0-100 [facility] Comment on above: Result Comment: LDL ATP III CLASSIFICATION LDL less than 100 mg/dL Optimal LDL 100-129 mg/dL Near or above optimal LDL 130-159 mg/dL Borderline high LDL 160-189 mg/dL High LDL greater than 189 mg/dL Very high Performed By: #### V [id number], LIPID, TSH3 wRFLX #### [facility] [address] [place] [address] [place] Triglyceride w/Reflex 42 mg/dL Normal 0-149 [facility] Comment on above: Result Comment: TRIG ATP III CLASSIFICATION TRIG less than 150 mg/dL Normal TRIG 150-199 mg/dL Borderline high TRIG 200-500 mg/dL High TRIG greater than 500 mg/dL Very high Standard traceable to the Center for Disease Conrtrol and Prevention (CDC) test method. Performed By: #### V [id number], LIPID, TSH3 wRFLX #### [facility] [address] VLDL CHOLESTEROL 8 mg/dL Normal [facility] Comment on above: Performed By: #### V [id number], LIPID, TSH3 wRFLX #### [facility] [address] Serum or plasma high density lipoprotein (HDL) cholesterol measurementOrdered By: Shubham Ding on 03-10-2023 Cholesterol in HDL [Mass/Vol] 45 mg/dL Normal 23- [facility] Comment on above: HDL CHOL ATP-III CLA SSIFICATION Cardiovascular RiskHDL > or equal to 60 mg/dL LOWHDL < 40 mg/dL HIGH Result Comment: HDL CHOL ATP-III CLASSIFICATION Cardiovascular Risk HDL > or equal to 60 mg/dL LOW HDL < 40 mg/dL HIGH Performed By: #### V [id number], LIPID, TSH3 wRFLX #### [address] Serum or plasma total choles terol/high density lipoprotein (HDL) cholesterol mass ratOrdered By: Shubham Ding on 03-10-2023 Cholesterol.total/Abi sterol in HDL [Mass ratio] 2.6 {ratio} Normal <5.0 [facility] Comment on above: Performed By: #### V [id number], LIPID, TSH3 wRFLX #### [address] Thyroid Stim Hormone w/Rflxo n 03-10-2023 Thyroid Stim Hormone w/Rflx 0.83 u[iU]/mL Normal 0.45-5.33 [facility] Comment on above: Performed By: #### V [id number], LIPID, TSH3 wRFLX #### [address] Thyrotropin [Units/volume] i n Serum or PlasmaOrdered By: Shubham Ding on 03-10-2023 TSH Qn 0.83 m[IU]/L 0.45-5.33 [facility] Triglyceride [Mass/volume] i n Serum or PlasmaOrdered By: Shubham Ding on 03-10-2023 Triglyceride [Mass/Vol] 42 mg/dL 0-149 [facility] Comment on above: TRIG ATP III CLASSIF ICATIONTRIG less than 150 mg/dL NormalTRIG 150-199 mg/dL Borderline highTRIG 200-500 mg/dL High TRIG greater than 500 mg/dL Very highStandard traceable to the Center for Disease Conrtrol and Prevention (CDC) test method. Vitamin D 25 Hydroxy Totalon 03-10-2023 Vitamin D 25 Hydroxy Total 44.6 ng/mL Normal 30-100 [facility] Comment on above: Result Comment: GREY MIN D STATUS 25(OH)VITAMIN D RANGE (ng/mL) Deficient <20 Insufficient 20 to <30 Sufficient 30 to 100 Reference: Al Napier, Yvonne BUCHANAN, et al. Evaluation,treatment, and prevention of vitamin D deficiency; an Endocrine Society clinical practice guideline. JCEM. 2010; 96(7):1911-30. PERFORMED BY: [place] [address] PATHOLOGIST COMPOSITE ENGINEER HANNY WEAVER M.D. Performed By: #### V [id number], LIPID, TSH3 wRFLX #### [address] Vitamin D+Metabolites [Mass/ volume] in Serum or PlasmaOrdered By: Shubham Ding on 03-10-2023 Vitamin D+Metabolites [Mass/Vol] 44.6 ng/mL 30-100 [facility] Comment on above: VITAMIN D STATUS 25( [place])VITAMIN D RANGE (ng/mL) Deficient <20 Insufficient 20 to <30Sufficient 30 to 100Reference: Al Napier, Yvonne BUCHANAN, et al. Evaluation,treatment, and prevention of vitamin D deficiency; an Endocrine Society clinical practice guideline. JCEM. 2010; 96(7):1911-30. ECG 12 lead ECGon 03-09-2023 ECG 12 lead ECG [place] [address] Electrocardiograph Report Signed Patient: Gerardo Rosenberg MR#: [id number] 140 : 2000 Acct:[id number] Age/Sex: 22 / M ADM Date: 03/09/23 Loc: Room: [address] [place] [address] Type: ADM IN Attending Dr: Shubham Ding [...] change was found Confirmed by RANDY NEWTON [facility] ([id number]) on 03/10/2023 11:46:30 AM Referred By: Electronically Signed By:HAJA ROY MD [facility] Transcribed By: MUS Signed By Aiden Roy MD 03/10/23 1146 Normal [facility] Progress Noteson 02-22-2023 Electrical Service Technician Authentication Interface Message Text ----- Wednesday, February 22, 2023 at 11:57:25 AM ----- ----- Provider: [id number] Jose Romero, -- Clinic: [facility] [place] ----- COMPOSITE JAINISM Patient is scheduled for Tenriism on tooth #20 MOD and 21 [id number] . Reviewed Medical History. Pt exhibited the following conditions: No significant medical history Patient is ready for treatment. Topical Benzocaine gel applied at the injection site for 2 minutes. Administered 1 carpules of Lidocaine, 2% with Epinephrine 1:100,000,. Isolation achieved. Decay/existing cheondoism removed, cavity prepared. Selectively etched enamel with 37% phosphoric acid, rinsed, and blot dried. OptiBond delaney applied and light-cured. Condensed packable composite shade a3 in light cured increments using Toffelmaire matrix band retainer and wedge. Finished with finishing burs, checked occlusion, verified proximal contacts and cheondoism was polished. Rinsed and suctioned intraorally, advised patient to not eat until local anesthesia wears off. POST OPERATIVE Periapical (single) RADIOGRAPH TAKEN. NOTE: Next Visit: Restorative ----- Signed on Saturday, February 25, 2023 at 5:04:28 AM ----- ----- Provider: [id number] - Ruel Cruz DMD -- Clinic: [facility] [place] ----- Normal [facility] Progress Noteson 02-06-2023 Electrical Service Technician Authentication Interface Message Text ----- Monday, February 06, 2023 at 2:01:57 PM ----- ----- Provider: [id number] - Resident Nithya -- Clinic: [facility] [place] ----- COMPOSITE JAINISM Patient is scheduled for Tenriism on tooth #4 and 5 surface B5. Reviewed Medical History. Pt exhibited the following conditions: No significant medical history Patient is ready for treatment. Topical Benzocaine gel applied at the injection site for 2 minutes. Administered 1 carpules of Articaine, 4% with Epinephrine 1:100,000,. Isolation achieved. Decay/existing cheondoism removed, cavity prepared. Selectively etched enamel with 37% phosphoric acid, rinsed, and blot dried. OptiBond delaney applied and light-cured. Condensed packable composite shade a2 in light cured increments using Mylar strip and wedge. Finished with finishing burs, checked occlusion, verified proximal contacts and cheondoism was polished. Rinsed and suctioned intraorally, advised patient to not eat until local anesthesia wears off. POST OPERATIVE RADIOGRAPH TAKEN. Next Visit: Restorative ----- Signed on Monday, February 06, 2023 at 2:08:28 PM ----- ----- Provider: [id number] - Christian Troncoso DDS -- Clinic: [facility] [place] ----- Normal [facility] Progress Noteson 01-21-2023 Electrical Service Technician Authentication Interface Message Text ----- Saturday, January 21, 2023 at 10:37:19 AM ----- ----- Provider: [id number] - Candy Womack -- Clinic: [facility] [place] ----- Patient returned for trigger point injections cycle 1 # 4 Patient missed last appointment for TPI and cheondoism with adjustment of espana. Referring physician: Cherise [...] ----- Provider: Manuel Cruz DMD -- Clinic: [facility] [place] ----- Normal [facility] Telephone Encounteron 2022 Electrical Service Technician Authentication Interface Message Text Situation: UPDATE Background: Pt would like Provider Suri to msg him on [employer]. Pt states he is unable to msg provider because their msgs have . Pt would like to stay in contact with provider via [employer] in order to schedule his trigger point appts. Pt does not want to call in to be scheduled. Pt last seen 11/16/22 montserrat MCCORD Assessment: n/a Recommendation: VIDHYA Thank you :) Msg sent to Suri @ [facility] on 12/28/22 Normal [facility] Cholesterol [Mass/volume] in Serum or PlasmaOrdered By: Shubham Ding on 09-29-2022 Cholesterol [Mass/Vol] 147 mg/dL 140-200 [facility] Comment on above: Chol less than 200 m g/dl low riskChol 201-239 mg/dl borderline riskChol 240 mg/dl and greater high risk Cholesterol in LDL Calc [Mas s/Vol]Ordered By: Shubham Ding on 09-29-2022 Cholesterol in LDL [Mass/Vol] 86 mg/dL 0-100 [facility] Comment on above: LDL ATP III CLASSIFI CATIONLDL less than 100 mg/dL OptimalLDL 100-129 mg/dL Near or above optimalLDL 130-159 mg/dL Borderline highLDL 160-189 mg/dL HighLDL greater than 189 mg/dL Very high Cholesterol in VLDL Calc [Ma ss/Vol]Ordered By: Shubham Ding on 09-29-2022 Cholesterol in VLDL [Mass/Vol] 12 mg/dL [facility] Serum or plasma high density lipoprotein (HDL) cholesterol measurementOrdered By: Shubham Ding on 09-29-2022 Cholesterol in HDL [Mass/Vol] 49 mg/dL 23-92 [facility] Comment on above: HDL CHOL ATP-III CLA SSIFICATION Cardiovascular RiskHDL > or equal to 60 mg/dL LOWHDL < 40 mg/dL HIGH Serum or plasma total choles terol/high density lipoprotein (HDL) cholesterol mass ratOrdered By: Shubham Ding on 09-29-2022 Cholesterol.total/Abi sterol in HDL [Mass ratio] 3.0 {ratio} <5.0 [facility] Thyrotropin [Units/volume] i n Serum or PlasmaOrdered By: Shubham Ding on 09-29-2022 TSH Qn 0.75 m[IU]/L 0.45-5.33 [facility] Triglyceride [Mass/volume] i n Serum or PlasmaOrdered By: Shubham Ding on 09-29-2022 Triglyceride [Mass/Vol] 62 mg/dL 0-149 [facility] Comment on above: TRIG ATP III CLASSIF ICATIONTRIG less than 150 mg/dL NormalTRIG 150-199 mg/dL Borderline highTRIG 200-500 mg/dL High TRIG greater than 500 mg/dL Very highStandard traceable to the Center for Disease Conrtrol and Prevention (CDC) test method. Vitamin D+Metabolites [Mass/ volume] in Serum or PlasmaOrdered By: Shubham Ding on 09-29-2022 Vitamin D+Metabolites [Mass/Vol] 57.5 ng/mL 30-100 [facility] Comment on above: VITAMIN D STATUS 25( [place])VITAMIN D RANGE (ng/mL) Deficient <20 Insufficient 20 to <30Sufficient 30 to 100Reference: Richy MF,Al LUTZ, Yvonne BUCHANAN, et al. Evaluation,treatment, and prevention of vitamin D deficiency; an Endocrine Society clinical practice guideline. JCEM. 2010; 96(7):1911-30. Cholesterol [Mass/volume] in Serum or PlasmaOrdered By: Shubham Ding on 08-04-2022 Cholesterol [Mass/Vol] 133 mg/dL 140-200 [facility] Comment on above: Chol less than 200 m g/dl low riskChol 201-239 mg/dl borderline riskChol 240 mg/dl and greater high risk Cholesterol in LDL Calc [Mas s/Vol]Ordered By: Shubham Ding on 08-04-2022 Cholesterol in LDL [Mass/Vol] 69 mg/dL 0-100 [facility] Comment on above: LDL ATP III CLASSIFI CATIONLDL less than 100 mg/dL OptimalLDL 100-129 mg/dL Near or above optimalLDL 130-159 mg/dL Borderline highLDL 160-189 mg/dL HighLDL greater than 189 mg/dL Very high Cholesterol in VLDL Calc [Ma ss/Vol]Ordered By: Shubham Ding on 08-04-2022 Cholesterol in VLDL [Mass/Vol] 17 mg/dL [facility] Serum or plasma high density lipoprotein (HDL) cholesterol measurementOrdered By: Shubham Ding on 08-04-2022 Cholesterol in HDL [Mass/Vol] 47 mg/dL 29-71 [facility] Comment on above: HDL CHOL ATP-III CLA SSIFICATION Cardiovascular RiskHDL > or equal to 60 mg/dL LOWHDL < 40 mg/dL HIGH Serum or plasma total choles terol/high density lipoprotein (HDL) cholesterol mass ratOrdered By: Shubham Ding on 08-04-2022 Cholesterol.total/Abi sterol in HDL [Mass ratio] 2.8 {ratio} <5.0 [facility] Thyrotropin [Units/volume] i n Serum or PlasmaOrdered By: Shubham Ding on 08-04-2022 TSH Qn 0.91 m[IU]/L 0.45-5.33 [facility] Triglyceride [Mass/volume] i n Serum or PlasmaOrdered By: Shubham Ding on 08-04-2022 Triglyceride [Mass/Vol] 86 mg/dL 0-149 [facility] Comment on above: TRIG ATP III CLASSIF ICATIONTRIG less than 150 mg/dL NormalTRIG 150-199 mg/dL Borderline highTRIG 200-500 mg/dL High TRIG greater than 500 mg/dL Very highStandard traceable to the Center for Disease Conrtrol and Prevention (CDC) test method. Vitamin D+Metabolites [Mass/ volume] in Serum or PlasmaOrdered By: Shubham Ding on 08-04-2022 Vitamin D+Metabolites [Mass/Vol] 46.3 ng/mL 30-100 [facility] Comment on above: VITAMIN D STATUS [...] 08-03-2022 ALT [Catalytic activity/Vol] 26 U/L 7-52 [facility] Albumin [Mass/volume] in Ser um or Plasma by Bromocresol green (BCG) dye binding methoOrdered By: Christiano Phelps on 08-03-2022 Albumin BCG dye [Mass/Vol] 3.9 g/dL 3.5-5.7 [facility] Alkaline phosphatase [Enzyma tic activity/volume] in Serum or PlasmaOrdered By: Christiano Phelps on 08-03-2022 ALP [Catalytic activity/Vol] 64 U/L 34-104 [facility] Amphetamine Screen Ql (U)Ord ered By: Christiano Phelps on 08-03-2022 Amphetamines Ql (U) Negative Negative [facility] Aspartate aminotransferase [ Enzymatic activity/volume] in Serum or PlasmaOrdered By: Christiano Phelps on 08-03-2022 AST [Catalytic activity/Vol] 19 U/L 13-39 [facility] Barbiturates [Presence] in U rine by Screen methodOrdered By: Christiano Phelps on 08-03-2022 Barbiturates Screen Ql (U) Negative Negative [facility] Basophils Auto (Bld) [#/Vol] Ordered By: Christiano Phelps on 08-03-2022 Basophils (Bld) [#/Vol] 0.0 10*3/uL 0.0-0.2 [facility] Basophils/100 WBC Auto (Bld) Ordered By: Christiano Phelps on 08-03-2022 Basophils/100 WBC (Bld) 0.3 % . [facility] Benzodiazepines Screen Ql (U )Ordered By: Christiano Phelps on 08-03-2022 Benzodiazepines Ql (U) Negative Negative [facility] Benzoylecgonine [Presence] i n Urine by Screen methodOrdered By: Christiano Phelps on 08-03-2022 Benzoylecgonine Screen Ql (U) Negative Negative [facility] Bilirubin Test strip Ql (U)O rdered By: Christiano Phelps on 08-03-2022 Bilirubin Ql (U) Negative Negative [facility] Bilirubin.total [Mass/volume ] in Serum or PlasmaOrdered By: Christiano Phelps on 08-03-2022 Bilirubin [Mass/Vol] 0.4 mg/dL 0.3-1.0 [facility] Calcium [Mass/volume] in Ser um or PlasmaOrdered By: Christiano Phelps on 08-03-2022 Calcium [Mass/Vol] 8.9 mg/dL 8.6-10.3 [facility] Cannabinoids [Presence] in U rine by Screen methodOrdered By: Christiano Phelps on 08-03-2022 Cannabinoids Screen Ql (U) Positive Negative [facility] Comment on above: These are unconfirme d results and should not be used for legal purposes. Drug Cut-Off Concentration: AMPH 1000 ng/mL DEANGELO 200 ng/mL BEATRIZ 200 ng/mL COCM 300 ng/mL OP 300 ng/mL PCP 25 ng/mL THC 20 ng/mL Carbon dioxide, total [Moles /volume] in Serum or PlasmaOrdered By: Christiano Phelps on 08-03-2022 CO2 [Moles/Vol] 32.6 mmol/L 21.0-31.[address] [facility] Chloride [Moles/volume] in S messi or PlasmaOrdered By: Christiano Phelps on 08-03-2022 Chloride [Moles/Vol] 104 mmol/L 98-107 [facility] Color Auto (U)Ordered By: Radames red Mattie on 08-03-2022 Color (U) Yellow Yellow [facility] Creatinine [Mass/volume] in Serum or PlasmaOrdered By: Christiano Phelps on 08-03-2022 Creatinine [Mass/Vol] 0.77 mg/dL 0.70-1.30 [facility] Eosinophils Auto (Bld) [#/Vo l]Ordered By: Christiano Phelps on 08-03-2022 Eosinophils (Bld) [#/Vol] 0.1 10*3/uL 0.0-0.45 [facility] Eosinophils/100 WBC Auto (Bl d)Ordered By: Christiano Phelps on 08-03-2022 Eosinophils/100 WBC (Bld) 1.7 % . [facility] Erythrocyte distribution wid th Auto (RBC) [Ratio]Ordered By: Christiano Phelps on 08-03-2022 Erythrocyte distribution width (RBC) [Ratio] 13.5 % 12.0-14.8 [facility] Ethanol [Mass/volume] in Ser um or PlasmaOrdered By: Christiano Phelps on 08-03-2022 Ethanol [Mass/Vol] mg/dL [facility] Ethanol [Mass/Vol] TNP [facility] Comment on above: Test not performed Globulin Calc (S) [Mass/Vol] Ordered By: Christiano Phelps on 08-03-2022 Globulin (S) [Mass/Vol] 2.7 g/dL [facility] Glucose [Mass/volume] in Ser um or PlasmaOrdered By: Christiano Phelps on 08-03-2022 Glucose [Mass/Vol] 86 mg/dL 70-100 [facility] Comment on above: ADA recommended refe rence rangeRandom Glucose Reference Range is dependent on time and content of last meal. Glucose of more than 200 mg/dL in a nonstressed, ambulatory subject supports the diagnosis of Diabetes Mellitus. Hematocrit Auto (Bld) [Volum e fraction]Ordered By: Christiano Phelps on 08-03-2022 Hematocrit (Bld) [Volume fraction] 43.8 % 38.8-50.0 [facility] Hemoglobin [Mass/volume] in BloodOrdered By: Christiano Phelps on 08-03-2022 Hemoglobin (Bld) [Mass/Vol] 14.6 g/dL 13.0-17.0 [facility] Ketones Auto test strip (U) [Mass/Vol]Ordered By: Christiano Phelps on 08-03-2022 Ketones (U) [Mass/Vol] Trace Negative [facility] Leukocytes [#/volume] correc michael for nucleated erythrocytes in Blood by Automated counOrdered By: Christiano Phelps on 08-03-2022 WBC corrected for nucl RBC Auto (Bld) [#/Vol] 5.2 10*3/uL 4.1-10.5 [facility] Lymphocytes Auto (Bld) [#/Vo l]Ordered By: Christiano Phelps on 08-03-2022 Lymphocytes (Bld) [#/Vol] 1.2 10*3/uL 1.00-4.8 [facility] Lymphocytes/100 WBC Auto (Bl d)Ordered By: Christiano Phelps on 08-03-2022 Lymphocytes/100 WBC (Bld) 23.9 % . [facility] MCH Auto (RBC) [Entitic mass ]Ordered By: Christiano Phelps on 08-03-2022 MCH (RBC) [Entitic mass] 28.8 pg 27.5-35.2 [facility] MCHC Auto (RBC) [Mass/Vol]Or dered By: Christiano Phelps on 08-03-2022 MCHC (RBC) [Mass/Vol] 33.5 g/dL 32.5-35.6 [facility] MCV Auto (RBC) [Entitic vol] Ordered By: Christiano Phelps on 08-03-2022 MCV (RBC) [Entitic vol] 86.2 fL 83.5-101 [facility] Monocyte distribution width [Entitic volume] in Blood by AutomatedOrdered By: Christiano Phelps on 08-03-2022 Monocyte distribution width Auto (Bld) [Entitic vol] 18.07 % 0.00-20.00 [facility] Monocytes Auto (Bld) [#/Vol] Ordered By: Christiano Phelps on 08-03-2022 Monocytes (Bld) [#/Vol] 0.4 10*3/uL 0.0-0.8 [facility] Monocytes/100 WBC Auto (Bld) Ordered By: Christiano Phelps on 08-03-2022 Monocytes/100 WBC (Bld) 8.3 % . [facility] Neutrophils Auto (Bld) [#/Vo l]Ordered By: Christiano Phelps on 08-03-2022 Neutrophils (Bld) [#/Vol] 3.4 10*3/uL 1.8-7.7 [facility] Neutrophils/100 WBC Auto (Bl d)Ordered By: Christiano Phelps on 08-03-2022 Neutrophils/100 WBC (Bld) 65.8 % . [facility] Nitrite Test strip Ql (U)Ord ered By: Christiano Phelps on 08-03-2022 Nitrite Ql (U) Negative Negative [facility] No Panel InformationOrdered By: Christiano Phelps on 08-03-2022 Estimated GFR (CKD-EPI) > 60.0 mL/Min [facility] Creatinine Clearance (Chem 144.27 [facility] Nucleated erythrocytes [Pres ence] in Blood by Automated countOrdered By: Christiano Phelps on 08-03-2022 Nucleated RBC Auto Ql (Bld) 0.2 /100{WBC} 0-0.5 [facility] Opiates [Presence] in Urine by Screen methodOrdered By: Christiano Phelps on 08-03-2022 Opiates Screen Ql (U) Negative Negative [facility] Phencyclidine Screen Ql (U)O rdered By: Christiano Phelps on 08-03-2022 Phencyclidine Ql (U) Negative Negative [facility] Platelet mean volume Auto (B ld) [Entitic vol]Ordered By: Christiano Phelps on 08-03-2022 Platelet mean volume (Bld) [Entitic vol] 8.8 fL 6.6-10.1 [facility] Platelets Auto (Bld) [#/Vol] Ordered By: Christiano Phelps on 08-03-2022 Platelets (Bld) [#/Vol] 201 10*3/uL 150-450 [facility] Potassium [Moles/volume] in Serum or PlasmaOrdered By: Christiano Phelps on 08-03-2022 Potassium [Moles/Vol] 4.0 mmol/L 3.5-5.1 [facility] Protein Auto test strip (U) [Mass/Vol]Ordered By: Christiano Phelps on 08-03-2022 Protein (U) [Mass/Vol] Negative Negative [facility] Protein [Mass/volume] in Ser um or PlasmaOrdered By: Christiano Phelps on 08-03-2022 Protein [Mass/Vol] 6.6 g/dL 6.4-8.9 [facility] RBC Auto (Bld) [#/Vol]Ordere d By: Christiano Phelps on 08-03-2022 RBC (Bld) [#/Vol] 5.08 10*6/uL 3.90-5.60 [facility] Serum or plasma albumin/glob ulin mass ratioOrdered By: Christiano Phelps on 08-03-2022 Albumin/Globulin [Mass ratio] 1.4 {ratio} [facility] Serum or plasma anion gap de terminationOrdered By: Christiano Phelps on 08-03-2022 Anion gap [Moles/Vol] 6.4 mmol/L 6.0-15.0 [facility] Sodium [Moles/volume] in Ser um or PlasmaOrdered By: Christiano Phelps on 08-03-2022 Sodium [Moles/Vol] 139 mmol/L 136-145 [facility] Specific gravity Auto test s trip (U) [Rel density]Ordered By: Christiano Phelps on 08-03-2022 Specific gravity (U) [Rel density] 1.023 1.001-1.030 [facility] Urea nitrogen [Mass/volume] in Serum or PlasmaOrdered By: Christiano Phelps on 08-03-2022 Urea nitrogen [Mass/Vol] 12 mg/dL 7-25 [facility] Urine clarity by refractomet ry automatedOrdered By: Christiano Phelps on 08-03-2022 Clarity Refractometry automated (U) Clear Clear [facility] Urine glucose measurement by automated test strip (mass/volume)Ordered By: Christiano Phelps on 08-03-2022 Glucose Auto test strip (U) [Mass/Vol] Normal mg/dL Normal [facility] Urine hemoglobin detection b y automated test stripOrdered By: Christiano Phelps on 08-03-2022 Hemoglobin Auto test strip Ql (U) Negative Negative [facility] Urine leukocyte esterase det ection by automated test stripOrdered By: Christiano Phelps on 08-03-2022 Leukocyte esterase Auto test strip Ql (U) Negative Negative [facility] Urobilinogen Auto test strip (U) [Mass/Vol]Ordered By: Christiano Phelps on 08-03-2022 Urobilinogen (U) [Mass/Vol] Normal mg/dL Normal [facility] WBC Auto (Bld) [#/Vol]Ordere d By: Christiano Pehlps on 08-03-2022 WBC (Bld) [#/Vol] 5.2 10*3/uL 4.1-10.5 [facility] pH Auto test strip (U)Ordere d By: Christiano Phelps on 08-03-2022 pH (U) 7.5 [pH] 5.0-9.0 [facility] Cholesterol [Mass/volume] in Serum or PlasmaOrdered By: Brandon Ca on 06-13-2022 Cholesterol [Mass/Vol] 118 mg/dL 140-200 [facility] Comment on above: Chol less than 200 m g/dl low riskChol 201-239 mg/dl borderline riskChol 240 mg/dl and greater high risk Cholesterol in LDL Calc [Mas s/Vol]Ordered By: Brandon Ca on 06-13-2022 Cholesterol in LDL [Mass/Vol] 66 mg/dL 0-100 [facility] Comment on above: LDL ATP III CLASSIFI CATIONLDL less than 100 mg/dL OptimalLDL 100-129 mg/dL Near or above optimalLDL 130-159 mg/dL Borderline highLDL 160-189 mg/dL HighLDL greater than 189 mg/dL Very high Cholesterol in VLDL Calc [Ma ss/Vol]Ordered By: Brandon Ca on 06-13-2022 Cholesterol in VLDL [Mass/Vol] 10 mg/dL [facility] Serum or plasma high density lipoprotein (HDL) cholesterol measurementOrdered By: Brandon Ca on 06-13-2022 Cholesterol in HDL [Mass/Vol] 42 mg/dL 29 [facility] Comment on above: HDL CHOL ATP-III CLA SSIFICATION Cardiovascular RiskHDL > or equal to 60 mg/dL LOWHDL < 40 mg/dL HIGH Serum or plasma total choles terol/high density lipoprotein (HDL) cholesterol mass ratOrdered By: Brandon Ca on 06-13-2022 Cholesterol.total/Abi sterol in HDL [Mass ratio] 2.8 {ratio} <5.0 [facility] Thyrotropin [Units/volume] i n Serum or PlasmaOrdered By: Brandon Ca on 06-13-2022 TSH Qn 1.03 m[IU]/L 0.45-5.33 [facility] Triglyceride [Mass/volume] i n Serum or PlasmaOrdered By: Brandon Ca on 06-13-2022 Triglyceride [Mass/Vol] 52 mg/dL 0-149 [facility] Comment on above: TRIG ATP III CLASSIF ICATIONTRIG less than 150 mg/dL NormalTRIG 150-199 mg/dL Borderline highTRIG 200-500 mg/dL High TRIG greater than 500 mg/dL Very highStandard traceable to the Center for Disease Conrtrol and Prevention (CDC) test method. Vitamin D+Metabolites [Mass/ volume] in Serum or PlasmaOrdered By: Brandon Ca on 06-13-2022 Vitamin D+Metabolites [Mass/Vol] 50.0 ng/mL 30-100 [facility] Comment on above: VITAMIN D STATUS 25( [place])VITAMIN D RANGE (ng/mL) Deficient <20 Insufficient 20 to <30Sufficient 30 to 100Reference: Richy MF,Al NC, Yvonne BUCHANAN, et al. Evaluation,treatment, and prevention of vitamin D deficiency; an Endocrine Society clinical practice guideline. JCEM. 2010; 96(7):1911-30. ACETAMINOPHENon 06-12-2022 Acetaminophen [Mass/Vol] ug/mL Critically low 10.0-30.0 [facility] Comment on above: Performed By: #### A CET, SALYC, ETH, CMP #### [facility] [address] [place] [address] Dr. Annabella Lara CBC AUTO DIFFon 06-12-2022 BASO # 0.0 103/ul Normal 0.0-0.1 [facility] Comment on above: Performed By: #### C BC #### [facility] [address] [place] [address] Dr. Annabella Lara Basophils/100 WBC (Bld) 0.3 % Normal 0.2-2.0 [facility] Comment on above: Performed By: #### C BC #### [facility] [address] [place] [address] Dr. Annabella Lara EO # 0.0 103/ul Normal 0.0-0.7 [facility] Comment on above: Performed By: #### C BC #### [facility] [address] [place] [address] Dr. Annabella Lara Eosinophils/100 WBC (Bld) 0.5 % Critically low 0.9-7.0 [facility] Comment on above: Performed By: #### C BC #### [facility] [address] [place] [address] Dr. Annabella Lara Erythrocyte distribution width (RBC) [Ratio] 12.1 % Normal 11.0-15.0 [facility] Comment on above: Performed By: #### C BC #### [facility] [address] [place] [address] Dr. Annabella Lara Hematocrit (Bld) [Volume fraction] 46.8 % Normal 42.0-54.0 [facility] Comment on above: Performed By: #### C BC #### [facility] [address] [place] [address] Dr. Annabella Lara Hemoglobin (Bld) [Mass/Vol] 15.9 g/dL Normal 14.0-18.0 [facility] Comment on above: Performed By: #### C BC #### [facility] [address] [place] [address] Dr. Annabella Lara IG # 0.02 10e3/ul Normal 0.00-0.03 [facility] Comment on above: Performed By: #### C BC #### [facility] [address] [place] [address] Dr. Annabella Lara IG % 0.3 % Normal 0.0-0.5 [facility] Comment on above: Performed By: #### C BC #### [facility] [address] [place] [address] Dr. Annabella Lara LYMPH # 1.2 103/ul Normal 1.2-3.8 [facility] Comment on above: Performed By: #### C BC #### [facility] [address] [place] [address] Dr. Annabella Lara Lymphocytes/100 WBC (Bld) 15.9 % Critically low 20.5-60.0 [facility] Comment on above: Performed By: #### C BC #### [facility] [address] [place] [address] Dr. Annabella Lara MANUAL DIFF REQ NO Normal [facility] Comment on above: Performed By: #### C BC #### [facility] [address] [place] [address] Dr. Annabella Lara MCH (RBC) [Entitic mass] 28.9 pg Normal 25.9-34.0 [facility] Comment on above: Performed By: #### C BC #### [facility] [address] [place] [address] Dr. Annabella Lara MCHC (RBC) [Mass/Vol] 34.0 g/dL Normal 29.9-35.2 [facility] Comment on above: Performed By: #### C BC #### [facility] [address] [place] [address] Dr. Annabella Lara MCV (RBC) [Entitic vol] 84.9 fL Normal 80.0-94.0 [facility] Comment on above: Performed By: #### C BC #### [facility] [address] [place] [address] Dr. Annabella Lara MONO # 0.4 103/ul Normal 0.3-0.8 [facility] Comment on above: Performed By: #### C BC #### [facility] [address] [place] [address] Dr. Annabella Lara Monocytes/100 WBC (Bld) 5.6 % Normal 1.7-12.0 [facility] Comment on above: Performed By: #### C BC #### [facility] [address] [place] [address] Dr. Annabella Lara NEUT # 5.9 103/ul Normal 1.4-6.5 [facility] Comment on above: Performed By: #### C BC #### [facility] [address] [place] [address] Dr. Annabella Lara Neutrophils/100 WBC (Bld) 77.4 % Critically high 43.0-75.0 [facility] Comment on above: Performed By: #### C BC #### [facility] [address] [place] [address] Dr. Annabella Lara Platelet mean volume (Bld) [Entitic vol] 10.2 fL Normal 9.5-13.5 [facility] Comment on above: Performed By: #### C BC #### [facility] [address] [place] [address] Dr. Annabella Lara PLT 231 103/ul Normal 150-450 [facility] Comment on above: Performed By: #### C BC #### [facility] [address] [place] [address] Dr. Annabella Lara RBC 5.51 106/ul Normal 4.70-6.10 [facility] Comment on above: Performed By: #### C BC #### [facility] [id number] Annabella Lara WBC 7.6 103/ul Normal 4.0-11.0 [facility] Comment on above: Performed By: #### C BC #### [facility] [id number] Annabella Lara Covid-19 PCR ([facility])on 05-17 SARS-CoV-2 (COVID-19) RNA KATY+probe Ql (Unsp spec) Not detected Normal NOT DETECTED [facility] Comment on above: Result Comment: When diagnostic [...] for this test is supported by the [place] of Health and Human Service's declaration that [...] used). Performed By: #### C VDTBH #### [facility] [address] [place], [place] [address] Dr. Annabella Lara DRUG SCREEN RAPID (URINE)on 06-12-2022 AMP Negative Normal NEGATIVE [facility] Comment on above: Performed By: #### D RUGRPD ####[facility] [address] [id number]. Annabella Lara BAR Negative Normal NEGATIVE [facility] Comment on above: Performed By: #### D RUGRPD ####[facility] [address] [place], [place] [address]Dr. Annabella Lara BUP Negative Normal NEGATIVE [facility] Comment on above: Performed By: #### D RUGRPD ####[facility] [address] [place], [place] [address]Dr. Ngozigenna Lara BZO Negative Normal NEGATIVE [facility] Comment on above: Performed By: #### D RUGRPD ####[facility] [address] [place], [place] [address]Dr. Ngozigenna Lara DEQUAN Negative Normal NEGATIVE [facility] Comment on above: Performed By: #### D RUGRPD ####[facility] [address] [place], [place] [address]Dr. Annabella Lara CUT-OFFS SEE BELOW Normal [facility] Comment on above: Result Comment: AMP (Amphetamine): 500ng/mL, BAR (Barbituates): 200 ng/mL, BZO (Benzodiazepines): 150 ng/mL, BUP (Buprenorphine): 10 ng/mL, DEQUAN (Cocaine): 150 ng/mL, mAMP (Methamphetamine): 500 ng/mL, MTD (Methadone): 200 ng/mL, OPI (Opiates): 100 ng/mL, OXY (Oxycodone): 100 ng/mL, PCP (Phencyclidine): 25 ng/mL, PPX (Propoxyphene): 300 ng/mL, THC (Cannabinoids): 50 ng/mL, TCA (Trycyclic Antidepressants): 300 ng/mL Performed By: #### D RUGRPD ####[facility] [address] [place], [place] [address]Dr. Annabella Lara DRUG CUT HEADER DRUG CLASS TEST SYSTEM CUT-OFF CONCENTRATIONS ARE FOLLOWS: Normal [facility] Comment on above: Performed By: #### D RUGRPD ####[facility] [address] [place], [place] [address]Dr. Annabella Lara mAMP Negative Normal NEGATIVE [facility] Comment on above: Performed By: #### D RUGRPD ####[facility] [address] [place], [place] [address]Dr. Annabella Lara MTD Negative Normal NEGATIVE [facility] Comment on above: Performed By: #### D RUGRPD ####[facility] [address] [id number]. Annabella Lara OPI Negative Normal NEGATIVE [facility] Comment on above: Performed By: #### D RUGRPD ####[facility] [address] [address]Dr. Annabella Lara OXY Negative Normal NEGATIVE [facility] Comment on above: Performed By: #### D RUGRPD ####[facility] [address] [address]Dr. Annabella Lara PCP Negative Normal NEGATIVE [facility] Comment on above: Performed By: #### D RUGRPD ####[facility] [address] [address]Dr. Annabella Lara PPX Negative Normal NEGATIVE [facility] Comment on above: Performed By: #### D RUGRPD ####[facility] [address] [place], [place] [address]Dr. Annabella Lara TCA Positive Abnormal NEGATIVE [facility] Comment on above: Performed By: #### D RUGRPD ####[facility] [address] [place], [place] [address]Dr. Annabella Lara THC Positive Abnormal NEGATIVE [facility] Comment on above: Performed By: #### D RUGRPD ####[facility] [address] [address]Dr. Annabella Lara ETHANOL (BLD ALC)on 06-13-19 23 ALC NOTE NOTE: 80 mg/dl is th e legal limit for a blood alcohol level Normal [facility] Comment on above: Performed By: #### A CET, SALYC, ETH, CMP ####[facility] [address] [address]Dr. Annabella Lara Ethanol [Mass/Vol] mg/dL Normal [facility] Comment on above: Performed By: #### A CET, SALYC, ETH, CMP ####[facility] [address] [address]Dr. Ngozigenna Lara PROF 14(COMP METB)on 023 Albumin [Mass/Vol] 4.4 g/dL Normal 3.4-5.0 [facility] Comment on above: Performed By: #### A CET, SALYC, ETH, CMP ####[facility] [address] [address]Dr. Annabella Lara Albumin/Globulin [Mass ratio] 1.3 {ratio} Normal [facility] Comment on above: Performed By: #### A CET, SALYC, ETH, CMP ####[facility] [address] [address]Dr. Annabella Lara ALP [Catalytic activity/Vol] 82 U/L Normal 46-116 [facility] Comment on above: Performed By: #### A CET, SALYC, ETH, CMP ####[facility] [address] [place], [place] [address]Dr. Annabella Lara ALT [Catalytic activity/Vol] 57 U/L Normal 16-63 [facility] Comment on above: Performed By: #### A CET, SALYC, ETH, CMP ####[facility] [address] [place], [place] [address]Dr. Annabella Lara Anion gap [Moles/Vol] 13.6 mmol/L Normal [facility] Comment on above: Performed By: #### A CET, SALYC, ETH, CMP ####[facility] [address] [place], [place] [address]Dr. Annabella Lara AST [Catalytic activity/Vol] 25 U/L Normal 15-37 [facility] Comment on above: Performed By: #### A CET, SALYC, ETH, CMP ####[facility] [address] [address]Dr. Annabella Lara Bilirubin [Mass/Vol] 0.5 mg/dL Normal 0.2-1.0 [facility] Comment on above: Performed By: #### A CET, SALYC, ETH, CMP ####[facility] [address] [address]Dr. Annabella Lara Calcium [Mass/Vol] 9.2 mg/dL Normal 8.5-10.1 [facility] Comment on above: Performed By: #### A CET, SALYC, ETH, CMP ####[facility] [address] [address]Dr. Annabella Lara Chloride [Moles/Vol] 104 mmol/L Normal 98-107 [facility] Comment on above: Performed By: #### A CET, SALYC, ETH, CMP ####[facility] [address] [address]Dr. Annabella Lara CO2 [Moles/Vol] 27.7 mmol/L Normal 21.0-32.0 [facility] Comment on above: Performed By: #### A CET, SALYC, ETH, CMP ####[facility] [address] [place], [place] [address]Dr. Annabella Lara Creatinine [Mass/Vol] 0.71 mg/dL Normal 0.70-1.30 [facility] Comment on above: Performed By: #### A CET, SALYC, ETH, CMP ####[facility] [address] [place], [place] [address]Dr. Annabella Lara EGFR-AF MALDIVIAN >60 Normal >=60 [facility] Comment on above: Performed By: #### A CET, SALYC, ETH, CMP ####[facility] [address] [place], [place] [address]Dr. Annabella Lara EGFR-NON AF MALDIVIAN >60 Normal >=60 [facility] Comment on above: Performed By: #### A CET, SALYC, ETH, CMP ####[facility] [address] [address]Dr. Annabella Lara Globulin (S) [Mass/Vol] 3.4 g/dL Normal [facility] Comment on above: Performed By: #### A CET, SALYC, ETH, CMP ####[facility] [address] [address]Dr. Annabella Lara Glucose [Mass/Vol] 96 mg/dL Normal 74-106 [facility] Comment on above: Performed By: #### A CET, SALYC, ETH, CMP ####[facility] [address] [address]Dr. Annabella Lara Potassium [Moles/Vol] 4.3 mmol/L Normal 3.5-5.1 [facility] Comment on above: Performed By: #### A CET, SALYC, ETH, CMP ####[facility] [address] [address]Dr. Annabella Lara Protein [Mass/Vol] 7.8 g/dL Normal 6.4-8.2 [facility] Comment on above: Performed By: #### A CET, SALYC, ETH, CMP ####[facility] [address] [address]Dr. Annabella Lara Sodium [Moles/Vol] 141 mmol/L Normal 136-145 [facility] Comment on above: Performed By: #### A CET, SALYC, ETH, CMP ####[facility] [address] [address]Dr. Annabella Lara Urea nitrogen [Mass/Vol] 13.0 mg/dL Normal 6.4-19.3 [facility] Comment on above: Performed By: #### A CET, SALYC, ETH, CMP ####[facility] [address] [address]Dr. Annabella Lara Urea nitrogen/Creatinine [Mass ratio] 18.3 mg/mg Normal [facility] Comment on above: Performed By: #### A CET, SALYC, ETH, CMP ####[facility] [address] [address]Dr. Annabella Lara SALICYLATEon 06-12-2022 SALICYLATE <2.8 Normal <=19.9 [facility] Comment on above: Performed By: #### A CET, SALYC, ETH, CMP #### [facility] [address] [address] [address] Annabella Lara XR CSPINE MIN 4 [...] [place] Date: 2022-06-04 14:08 Normal [facility] DRUG SCREEN RAPID (URINE)on 05-28-2022 AMP Negative Normal NEGATIVE [facility] Comment on above: Performed By: #### D RUGRPD ####[facility] [address] [address]Dr. Annabella Lara BAR Negative Normal NEGATIVE [facility] Center Comment on above: Performed By: #### D RUGRPD ####[facility] [address] [place] [address]Dr. Annabella [facility] BUP Negative Normal NEGATIVE [facility] Comment on above: Performed By: #### D RUGRPD ####[facility] [address] [address]Dr. [facility] BZO Negative Normal NEGATIVE [facility] Comment on above: Performed By: #### D RUGRPD ####[facility] [address] [address]Dr. Annabella [facility] DEQUAN Negative Normal NEGATIVE [facility] Comment on above: Performed By: #### D RUGRPD ####[facility] [address] [address]Dr. Annabella [facility] CUT-OFFS SEE BELOW Normal [facility] Comment on above: Result Comment: AMP (Amphetamine): 500ng/mL, BAR (Barbituates): 200 ng/mL, BZO (Benzodiazepines): 150 ng/mL, BUP (Buprenorphine): 10 ng/mL, DEQUAN (Cocaine): 150 ng/mL, mAMP (Methamphetamine): 500 ng/mL, MTD (Methadone): 200 ng/mL, OPI (Opiates): 100 ng/mL, OXY (Oxycodone): 100 ng/mL, PCP (Phencyclidine): 25 ng/mL, PPX (Propoxyphene): 300 ng/mL, THC (Cannabinoids): 50 ng/mL, TCA (Trycyclic Antidepressants): 300 ng/mL Performed By: #### D RUGRPD ####[facility] [address] [place] [address] [id number]. Annabella Lara DRUG CUT HEADER DRUG CLASS TEST SYSTEM CUT-OFF CONCENTRATIONS ARE FOLLOWS: Normal [facility] Comment on above: Performed By: #### D RUGRPD ####[facility] [address] [id number]. Annabella Lara mAMP Negative Normal NEGATIVE [facility] Comment on above: Performed By: #### D RUGRPD ####[facility] [address] [place] [id number]. Annabella Lara MTD Negative Normal NEGATIVE [facility] Comment on above: Performed By: #### D RUGRPD ####[facility] [address] [place], [place] [address]Dr. Annabella Lara OPI Negative Normal NEGATIVE [facility] Comment on above: Performed By: #### D RUGRPD ####[facility] [address] [place], [place] [address]Dr. Annabella Lara OXY Negative Normal NEGATIVE [facility] Comment on above: Performed By: #### D RUGRPD ####[facility] [address] [place], [place] [address]Dr. Annabella Lara PCP Negative Normal NEGATIVE [facility] Comment on above: Performed By: #### D RUGRPD ####[facility] [address] [place] [address]Dr. Annabella Lara PPX Negative Normal NEGATIVE [facility] Comment on above: Performed By: #### D RUGRPD ####[facility] [address] [address]Dr. Annabella Lara TCA Positive Abnormal NEGATIVE [facility] Comment on above: Performed By: #### D RUGRPD ####[facility] [address] [place], [place] [address]Dr. Annabella Lara THC Positive Abnormal NEGATIVE [facility] Comment on above: Performed By: #### D RUGRPD ####[facility] [address] [place], [place] [address]Dr. Annabella Lara YESENIA w/Reflex if POSon 2022 Nuclear Ab Ql (S) Negative Invalid Interpretation Code Negative [facility] Comment on above: Result Comment: Perf ormed at: [facility] [address] [id number] PhD Missael Oneal Performed By: #### 2 209676, 8491650, 30128601, 31907017, 6662279, 03350751, 6705324, [id number] #### [facility] [address] [place] [address] Coding Summary.on 04-23-2022 Coding Summary. CD:[id number] G h0bWw+PGhlYWQ+XW7JAXO wU14rvXJscC8BT4hVCJ6C NPHAFQQPDP5JHM3hnAX6I OknL0TedtJp OskpdIPpXR90LSh9ILI6h DktZIffkQ3bjENyR7l4Ou RnAH53qW98NGbkPBPtAfU 3LjZpbjsgbWFy I8aaShOyxWMwCcz+PHRhY mxlIHdpZHRoPScxMDAlJy EeoJhzQE6nLg4uJWWaDHR vbGxhcHNlOiBj e9ueZIUxGYlmZP7oqAdjF 1PoaOR3XXOpd1s2Rw91eM I+ZWNeOUR7jSomODtwu17 5RaWss3sdIQU1 wIGpIOdvVYO7Z41nc4E3O HPlTQLzGKI4sKC9mP2mxO qaayblR4WknHDcByI6XAY 5iVPyaE4cfNcc metyjE4vExh+H38TFM4AB PIHZW3BHdn1Z0PvOfzuuY I+QA93VLQwFV45uPNaaQH ta2stvUy1FfNi QIHdFCM4jJmkHNxqq0QwD BLjP30seQNqc3P1JZQypX xhrDSbNzBfhMB6pM9zIIs agpjyv8qpmars Ybdhf0fqao75dD01Z54nY FfaZOSuSWV8JQKrGXTnvQ zdes9xuL2nMi5+MMqjh8g il8nuhPe5BzVa RGYzxcTmtVcuNTQ2e6FwC j36H1HfhFlox4PvBdy5qg 27gRCac6P7oOA7TJbxZXZ bxH7mGPoyTzP0 WYQtTrYdzY04xKRaIUzwV w5lfKztgQbgIW1uCWSymr rkAJAheM3qVMUnwSNdvRe iQI9wGJLaqvlr a645KmNpXPY1JMCojCYrW 4RzsL2oSvPgKVMsEPPuT5 ZfnITpGApyA999MUgyNtP 7BZJigmDiC0Rc NPLrfPbtIfO5u2R5Zq5Wx 0UnjullSZG9JCrePLYyKe O2VzBtXvY6O9WeVsq8IUK xuAckLS1xC2Jh ZPVrmtmqnwxapRD9YSHkD JWzfP00nPSvFJojWt6lx3 J8h281QPNaUTNwjX32Ig0 udDogMTBwdCBU hB6izykzu4owjbwaHmOeE XWnVSx1OAu6JJNdvObrFs GbWPF0LiV4SNO4sHJuoJ3 fmGsxgqfggY2w Oyc+R13jwM3lTGT1LNJ6y uqfMQUldzYgBW44BW32D5 RyPjwvdGFibGU+PGRpdiB jrFvwTT6yFjMa h9gab5RzWIfjX5MmZZEiU LybWlg0ZHQeCXH1yDX0eV 4fUHClKYhcj9B3mZF5W4E lsyTcbw2cf4fl IHFiGDftP46saVZos8O1D UWcjAW8QEBvhGgrJzLnoC 93Oyc+GTBwrPyhd8ZzSft mr1khd2qczUp4 BnYlBDAirrQnfVztRVT1h 9JjEj97Y05qSYmlSFYsOI WaYSEwJWAncWceen3ziZ1 wIi8+PGNvbCB3 nJE4dE4uAJFrUmP5NFnvL 557FaVjqALhTqpoe5mxk2 dwkOx8UhRcBAQysvXqfLa yGKM2x6HcYl75 H08oHSjvMLCaDGVdULJhZ NUozRmaeu9qpO4eKo7+PC 6lt2sigw35zW14uWT+PHR lUQF4oGmrZIcf DECboK3rWOegJqF6MVPdJ zMciC63iHQuFTchIh5vlZ aacQacTK5cYLExcudgq72 7RpNvr5fnVPNx hBSgEIamDCL7U73xe2W4R DAbJASkJVZ2oEU9gY5ioB lnbjogbGVmdDsgdmVydGl gANxvWZtcX868 IHRvcDsnPlBhdGllbnQgT tPkZSf4K3NoIql9IRWuhC xmIY6wlXGyODthYk6fnDe sjYnbIL2qCWQl kfjvo324RlEbp6doINXsb TMlGZddIQW7O95bx9E5PJ BqMBDtZLP4fUR7xU5mbWw nbjogbGVmdDsg ffHzyLpuHVsmFFclQ464M HRvcDsnPkJpcnRoIERhdG N2GP03ZC11wQPua8J5lOG 1G5KjPFWcgpim vdipfEF6MZUjRUKhwW43C d7znCrhYx7qLFXkBAM2IS LmjQCmD0GvjK9iTbWbXEN dHANoK8RkfIYc UXwiW640KTztXzY2XPFau nHxZ0KmFPPtaPyuUcP6s9 W5Uq3XS5U5VN00FY39wSL zv9E4cNH9R0Tt CYFagnrbqxpzgDA9DFNjK JRoiI40Kv8rzEsvNo5iBF PjOXU8RYYcyOSpY9FycB9 yOiAjMDAwMDAw X0FieOZyYHptX895JObxM aD4JTMxqwZoH2CqNNJasC xhMrK0u6L9Rh5WEFn6CO3 9NJ65tFDkl6K4 eGT3W0SdODIdsdycgmlgq EH0XCRcLDQusD21Ez2hcH tePk2uOQCeAFE9GSRonVT iX1XmuR5bJyPd AZPhTZGsS9NfbAPnJGlfI 315LGirAqE0GSWrtwNlM0 VoVDGscIajLwB8m9C8Wb8 SCGAdWD57EAS1 vOO2BS16OB43O3XaArdme GFibGU+PHRhYmxlIHdpZH RoPScxMDAlJyBzdHlsZT0 vEo3mSOQqIMIl iDsusIVfWwLfj3raAZSrI QpwRX3tzBnsG7GicGS4KS Gwd0t0Xz38T75iG6LkgZF +YTCpfTG4jVG2 pL7gPyBxZnZ1JDvmC451X xCdwUYgHoduc5ncy1racM o1RlQ2EDIrayQliAtxFDL 4x4IcVg95V83l IHdpZHRoPSIxNSUiIHZhb Aytdr8ywN8xDn0+PGNvbC C5gAL0jP7pWeMjKxJ4LTk wS436HqAwlZDc Bjdjb3fil9oiaHv5HmQkT EHgjbQolWtuXVW2x3PnPa 64G2RoeZizn5PhZos7bd8 2nSXab4Z8jGD6 H2AvPIYbvqhonNQhlPeqB T6hHVHkqtrtNIGqkE1bDN JsM5q4VcVgJuQ6ISenD6T grdZ1HAAkhXOv CQvjUCW4H72tc8R2CJGjT ZCiCZZ6eCE5kS5hnEyucm ogbGVmdDsgdmVydGljYWw tSIrwY988WIKs vSyrSXUzuX8iKSLbcTDjk GdiJD9pSZYxvwqsArdRXO JEFkceKFQVZPlPEX42DO7 4qCFcv9F1rTO2 M7JlVIXylasldrkdqFZ2J JDiCEBdqS46lJTyZFlgYs 5de3Q4i178YCUcLQXvyN9 9Hs3vhXkqCPTz vDQHxA1jkdyiv1xezsabE lBgGPZcFNc7WAh8MFZbgV dwVxJiXLT4GiN8OYT6gVE nqJ5vyTvwafns kP6lHwj+MDcvMTkvMjAwM zwvdGQ+VZEkFCQ1fVnkOS cuSJPakF5tHSRlL5z7OqJ hYkD3GRsdV5Jr LMIswjlwNc94cP5sYqPfE aJ1PSmsE5IwufR4DDEkxR SeDOiyQQQ3I20va3N6QLE sPYRhSEY4xBF2 rQ3kaGxvkudkpFGbeDywn pObnGgjOHoyHUqwW905LO CiyToeUyU5JAvwFMLmJB6 1WB39qQPpo7N1 dGJ1G8TwNXFobxgdlkotw ZC9INEgYFEusW40sRPzCR rfEb0vi4R4g996DLFyVXL ddF27Vt9snTyl QBMthGUNxM8pxatml3jvx exqWqWhNGHhUYq3ZQb5CG ByqJcyIxHdNZY9TdR9WOI 5eHZxoK5phIje hfoajX3sMhx+TWFsZTwvd GQ+NNZlPEE4vJfrHVvvTO YjaS1jLVLsZ9a3ZzQvNeG 2ULleZ2KzGIPw hucsCc97hR5eRpRoVsT8W YopF7TiraQ9HUYanEWaLV deCEZ0X54pp7J8FXZdZPF rNSK1fZQ5eY5n bGlnbjogbGVmdDsgdmVyd ZmoOPyvZYgvU143ZVAjfB erAl72gMZhgOajbfP7C6I kPjwvdHI+PC90 ICAyVC98tYDqhGTdz5wug Em0EtXkGXJbSOG0yVdhYD qba0LkWCVhJ54ljPJsh3F 6IGNvbGxhcHNl YhRqjZE5fF4iZYwuwbdlm 9pzxwppBcxkk0gpjq20vU 44Z95bDNptRGLrFXQvRVY uLDZvrWrprj9x oH3nOp9+PJMmrIP9sGB3o B0eZjNkMkT4ULnzT263Ig WvcHWlXwakj7ryu6fneKe 9IjIwJSIgdmFs kSngSXK7m7ChJo25G71zL HdpZHRoPSIyMCUiIHZhbG glpn9djQ1dRq8+FC0mv8g hzq20oZ29fYS+ XGYnDQS9lNxtEKqmGLXbh G0eQHshSdB6VZQdBrDttB 01bZHyUOynZx0bdPpmuEb yTJ7uLOElarwq r991GcWdx7huVNOtyTMuS VmmTGH2F76sd8Q5SDCwXJ McRKH9aST2lC3jhOskkec gbGVmdDsgdmVy dRrvEKmuSBbaC887GHKhs YdsSaVsyDSbT1nqbtWSHQ 1lOjwvdGQ+YXTqHGG9qKm wPWlrSVNhsT0g EIWzY2y6GbYrUgS8YMynG 8KtvkI2WOEkzQYwIIJjeG SCnI4umpaah5pgucndFjB hHAQgKHa7NUu4 QZHbhWozTvNhRTZ1ZeH4K VB4ePNlpE3hvIqcfeaghM 9wOyc+RklOOjwvdGQ+PHR bYQL7pAlyMLio CFEuyJ2fXMRpW7l8KeSuQ lW2JVyaQ6CmrpT9ISLltF LyRQUehWRUaV3xdoleh2h vcjogIzAwMDAw FXb9LNi3PKWbfUetKyVcM EX7SaY4ZXI7uVPxlQ2daY xdowjsuY8vXcu+TVJOOjw vdGQ+PHRkIHN0 wQnnUVmhLHLmeK0kRTSsE 2k6QhEuKbS2YSoiT0Ctme Q2SYPkeAZwZHLrcZZPwO5 tfxpgw6rxguie VrOfPNScEEo4SLw1GUDua AclXgLfQNX1YlO3KMR7xH JwlQ1gjAlqrbfwnI9sOfb +PDD6RWB1ZH96 AK81K7VjDqjcmMGtlLG+P HRhYmxlIHdpZHRoPScxMD TyVkPcmZtaZZ5jJa3wVZI yLWNvbGxhcHNl OiBj (more content not included)... Normal [facility] RF Quanton 04-23-2022 Rheumatoid factor Qn [IU]/mL Invalid Interpretation Code <14.0 [facility] Comment on above: Result Comment: Perf ormed at: [facility] [address] [id number] PhD Missael Oneal Performed By: #### 2 032808, 3002309, 34441176, 51093560, 9954602, 98877768, 8118641, 19535647 #### [facility] [address] [place] [address] BMPon 04-19-2022 Anion gap [Moles/Vol] 12 mmol/L Normal 6-16 [facility] Comment on above: Performed By: #### 2 373500, 2057760, 73298952, 00322347, 5999457, 20754245, 3317190, 71925433 #### [facility] [address] [place] [address] Calcium [Mass/Vol] 9.7 mg/dL Normal 8.9-11.1 [facility] Comment on above: Performed By: #### 2 161642, 6474309, 00506927, 18914914, 7352497, 37023139, 4487745, 00074502 #### [facility] [address] [place] [address] Chloride [Moles/Vol] 99 mmol/L Low 101-111 [facility] Comment on above: Performed By: #### 2 853526, 3270048, 96695469, 04417546, 6595677, 34705581, 3731934, 18043187 #### [facility] [address] [place] [address] CO2 [Moles/Vol] 32 mmol/L High 21-31 [facility] Comment on above: Performed By: #### 2 572807, 9486131, 46194914, 52734065, 2541650, 41872759, 3963446, 32031888 #### [facility] [address] [place] [address] Creatinine [Mass/Vol] 0.8 mg/dL Normal 0.5-1.3 [facility] Comment on above: Performed By: #### 2 094532, 8623037, 10516374, 26189739, 0088085, 81209228, 7990466, 45900613 #### [facility] [address] [place] [address] Glucose [Mass/Vol] 92 mg/dL Normal 55-199 [facility] Comment on above: Result Comment: If t his glucose result represents a fasting glucose, interpretation should refer to the following reference range: 55-99 mg/dL Performed By: #### 2 000007, 8006102, 48983659, 37747229, 7546206, 85117278, 5418859, 09214787 #### [facility] [address] [place] [address] Potassium [Moles/Vol] 4.0 mmol/L Normal 3.5-5.3 [facility] Comment on above: Performed By: #### 2 732017, 9691229, 82228524, 03965815, 3667924, 16899309, 8492061, 37786649 #### [facility] [address] [place] [address] Sodium [Moles/Vol] 139 mmol/L Normal 135-145 [facility] Comment on above: Performed By: #### 2 585880, 7705309, 10083244, 73619395, 8759773, 47007067, 5420584, 31178902 #### [facility] [address] [place] [address] Urea nitrogen [Mass/Vol] 13 mg/dL Normal 5-21 [facility] Comment on above: Performed By: #### 2 305700, 1120273, 35771751, 10873336, 3146740, 67151653, 4799094, 30590520 #### [facility] [address] [place] [address] Urea nitrogen/Creatinine [Mass ratio] 16 No Units Normal 10-20 [facility] Comment on above: Performed By: #### 2 960636, 2910028, 53631395, 80012411, 9909676, 86033490, 0997469, 29168461 #### [facility] [address] [place] [address] CBC w/Indiceson 04-19-2022 Erythrocyte distribution width (RBC) [Ratio] 13.6 % Normal 10.9-14.2 [facility] Comment on above: Performed By: #### 2 673674, 8338376, 50114357, 40790832, 6180506, 58639653, 1421668, 72691970 #### [facility] [address] [place] [address] Hematocrit (Bld) [Volume fraction] 46.2 % Normal 37.7-49.0 [facility] Comment on above: Performed By: #### 2 424503, 1906078, 45588436, 50598176, 4031004, 47263026, 3475135, 12720250 #### [facility] [address] [place] [address] Hemoglobin (Bld) [Mass/Vol] 15.9 g/dL Normal 13.5-17.5 [facility] Comment on above: Performed By: #### 2 550891, 1455241, 86900490, 20989173, 6508711, 40714894, 2966844, 24932813 #### [facility] [address] [address] MCH (RBC) [Entitic mass] 29.8 pg Normal 27.0-34.0 [facility] Comment on above: Performed By: #### 2 524880, 0418385, 91929318, 92070442, 9101825, 94966380, 8070415, 74538341 #### [facility] [address] [place], [place] [address] MCHC (RBC) [Mass/Vol] 34.4 g/dL Normal 31.4-36.0 [facility] Comment on above: Performed By: #### 2 229395, 7879582, 03106428, 50992496, 4964801, 54071459, 8023044, 87591452 #### [facility] [address] [place], [place] [address] MCV (RBC) [Entitic vol] 86.5 fL Normal 80.0-100.0 [facility] Comment on above: Performed By: #### 2 018670, 2303759, 19035204, 33764408, 9225326, 14135037, 9796431, 11734436 #### [facility] [address] [place] [address] Platelet mean volume (Bld) [Entitic vol] 8.6 fL Normal 6.4-10.8 [facility] Comment on above: Performed By: #### 2 447978, 7089535, 39983880, 40190740, 9160969, 70353211, 9391117, 25063558 #### [facility] [address] [place], [place] [address] Platelets (Bld) [#/Vol] 245.0 E9/L Normal 150.0-500.0 [facility] Comment on above: Performed By: #### 2 418113, 9283434, 08571499, 49979390, 7338614, 57924231, 0744274, 29889970 #### [facility] [address] [place] [address] RBC (Bld) [#/Vol] 5.3 E12/L Normal 4.3-5.9 [facility] Comment on above: Performed By: #### 2 483192, 4383466, 25100677, 07783962, 8637080, 87903125, 9197416, 38314214 #### [facility] [address] [place] [address] WBC corrected for nucl RBC Auto (Bld) [#/Vol] 4.9 E9/L Normal 4.0-11.0 [facility] Comment on above: Performed By: #### 2 696991, 1813530, 78653730, 26801321, 1820643, 66156542, 4679446, 08272001 #### [facility] [address] [place] [address] CHEMISTRYOrdered By: SYSTEM SYSTEM on 04-19-2022 Anion [...] m2 Normal >=59mL/min/ 1.73 m2 [facility] Chem S GFR/1.73 sq M.predicted among non-blacks MDRD (S/P/Bld) [Vol rate/Area] mL/min/1.73 m2 Normal >=59mL/min/ 1.73 m2 [facility] Chem S Glucose [Mass/Vol] 92 mg/dL Normal 55 - 199 mg/dL [facility] Remisol Potassium [Moles/Vol] 4.0 mmol/L Normal 3.5 - 5.3 mmol/L [facility] Remisol Sodium [Moles/Vol] 139 mmol/L Normal 135 - 145 mmol/L [facility] Remisol Urate [Mass/Vol] 5.1 mg/dL Normal 2.2 - 7.4 mg/dL [facility] Remisol Urea nitrogen [Mass/Vol] 13 mg/dL Normal 5 - 21 mg/dL [facility] Remisol Urea nitrogen/Creatinine [Mass ratio] 16 mg/mg Normal 10 - 20 [facility] Remisol CRPon 04-19-2022 CRP [Mass/Vol] 0.7 mg/dL Normal <=1.9 [facility] Comment on above: Performed By: #### 2 791023, 6259131, 97255633, 92776490, 1927262, 72982127, 5269160, 35020207 #### [facility] [address] [place] [address] Consent for Treatmenton Consent for Treatment [id number]#1 .00CD:127 Normal [facility] HEMATOLOGYOrdered By: Una Bhatti on 04-19-2022 Erythrocyte distribution width (RBC) [Ratio] 13.6 % Normal 10.9 - 14.2 % [facility] Hematocrit (Bld) [Volume fraction] 46.2 % Normal 37.7 - 49.0 % [facility] Hemoglobin (Bld) [Mass/Vol] 15.9 g/dL Normal 13.5 - 17.5 gm/dL [facility] MCH (RBC) [Entitic mass] 29.8 pg Normal 27.0 - 34.0 pg [facility] MCHC (RBC) [Mass/Vol] 34.4 g/dL Normal 31.4 - 36.0 gm/dL [facility] MCV (RBC) [Entitic vol] 86.5 fL Normal 80.0 - 100.0 fL [facility] Platelet mean volume (Bld) [Entitic vol] 8.6 fL Normal 6.4 - 10.8 fL [facility] Platelets (Bld) [#/Vol] 245.0 E9/L Normal 150. 0 - 500.0 E9/L [facility] RBC (Bld) [#/Vol] 5.3 E12/L Normal 4.3 - 5.9 E12/L [facility] Sed Rate Automated 6 mm/h Normal 0 - 19 mm/hr [facility] WBC corrected for nucl RBC Auto (Bld) [#/Vol] 4.9 E9/L Normal 4.0 - 11.0 E9/L [facility] Physician Orderon 04-19-2022 Physician Order [id number]# 1.00CD:127 Normal [facility] Sed Rate Automatedon 023 Sed Rate Automated 6 mm/hr Normal 0-19 [facility] Comment on above: Performed By: #### 2 889773, 3148338, 20300406, 79238662, 0548417, 32083345, 9012609, 79810238 #### [facility] [address] [place] [address] Uric Acidon 04-19-2022 Urate [Mass/Vol] 5.1 mg/dL Normal 2.2-7.4 [facility] Comment on above: Performed By: #### 2 689185, 8045622, 86530914, 92139305, 3401584, 09468368, 2226241, 33440851 #### [facility] [address] [place] [address] eGFRon 04-19-2022 GFR/1.73 sq M.predicted among blacks MDRD (S/P/Bld) [Vol rate/Area] mL/min/{1.73_m2} Normal >=59 [facility] Comment on above: Order Comment: Order added by Discern Expert. Result Comment: eGFR is race adjusted. AA=. Performed By: #### 2 084932, 5817011, 71609144, 98692729, 5041655, 06946989, 3711477, 74744352 #### [facility] [address] [place] [address] GFR/1.73 sq M.predicted among non-blacks MDRD (S/P/Bld) [Vol rate/Area] mL/min/{1.73_m2} Normal >=59 [facility] Comment on above: Order Comment: Order added by Discern Expert. Result Comment: [employer] anni kidney disease could be indicated at eGFR's of less than 60 mL/min/1.73m2. Kidney failure is indicated at less than 15 mL/min/1.73m2. Performed By: #### 2 613122, 7657353, 49593679, 51962369, 6485766, 80265326, 7360930, 29248447 #### [facility] [address] [place] [address] ACETAMINOPHENon 01-28-2022 Acetaminophen [Mass/Vol] ug/mL Critically low 10.0-30.0 [facility] Comment on above: Performed By: #### E TH, SALYC, ACET #### [facility] [address] [address] [address] Annabella Lara CBC AUTO DIFFon 01-28-2022 BASO # 0.0 103/ul Normal 0.0-0.1 [facility] Comment on above: Performed By: #### C BC #### [facility] [address] [address] [address] Annabella Lara Basophils/100 WBC (Bld) 0.3 % Normal 0.2-2.0 [facility] Comment on above: Performed By: #### C BC #### [facility] [address] [address] [address] Annabella Lara EO # 0.1 103/ul Normal 0.0-0.7 [facility] Comment on above: Performed By: #### C BC #### [facility] [address] [place] [address] Dr. Annabella Lara Eosinophils/100 WBC (Bld) 2.0 % Normal 0.9-7.0 [facility] Comment on above: Performed By: #### C BC #### [facility] [address] [place] [address] Dr. Annabella Lara Erythrocyte distribution width (RBC) [Ratio] 12.8 % Normal 11.0-15.0 [facility] Comment on above: Performed By: #### C BC #### [facility] [address] [place] [address] Dr. Annabella Lara Hematocrit (Bld) [Volume fraction] 46.9 % Normal 42.0-54.0 [facility] Comment on above: Performed By: #### C BC #### [facility] [address] [place] [address] Dr. Annabella Lara Hemoglobin (Bld) [Mass/Vol] 16.1 g/dL Normal 14.0-18.0 [facility] Comment on above: Performed By: #### C BC #### [facility] [address] [place] [address] Dr. Annabella Lara IG # 0.01 10e3/ul Normal 0.00-0.03 [facility] Comment on above: Performed By: #### C BC #### [facility] [address] [place] [address] Dr. Annabella Lara IG % 0.1 % Normal 0.0-0.5 [facility] Comment on above: Performed By: #### C BC #### [facility] [address] [place] [address] Dr. Annabella Lara LYMPH # 1.2 103/ul Normal 1.2-3.8 [facility] Comment on above: Performed By: #### C BC #### [facility] [address] [place] [address] Dr. Annabella Lara Lymphocytes/100 WBC (Bld) 17.3 % Critically low 20.5-60.0 [facility] Comment on above: Performed By: #### C BC #### [facility] [address] [place] [address] Dr. Annabella Lara MANUAL DIFF REQ NO Normal [facility] Comment on above: Performed By: #### C BC #### [facility] [address] [place] [address] Dr. Annabella Lara MCH (RBC) [Entitic mass] 29.1 pg Normal 25.9-34.0 [facility] Comment on above: Performed By: #### C BC #### [facility] [address] [place] [address] Dr. Annabella Lara MCHC (RBC) [Mass/Vol] 34.3 g/dL Normal 29.9-35.2 [facility] Comment on above: Performed By: #### C BC #### [facility] [address] [place] [address] Dr. Annabella Lara MCV (RBC) [Entitic vol] 84.8 fL Normal 80.0-94.0 [facility] Comment on above: Performed By: #### C BC #### [facility] [address] [place] [address] Dr. Annabella Lara MONO # 0.5 103/ul Normal 0.3-0.8 [facility] Comment on above: Performed By: #### C BC #### [facility] [address] [place] [address] Dr. Annabella Lara Monocytes/100 WBC (Bld) 6.4 % Normal 1.7-12.0 [facility] Comment on above: Performed By: #### C BC #### [facility] [address] [place] [address] Dr. Annabella Lara NEUT # 5.2 103/ul Normal 1.4-6.5 [facility] Comment on above: Performed By: #### C BC #### [facility] [address] [place] [address] Dr. Annabella Lara Neutrophils/100 WBC (Bld) 73.9 % Normal 43.0-75.0 [facility] Comment on above: Performed By: #### C BC #### [facility] [address] [place] [address] Dr. Annabella Lara Platelet mean volume (Bld) [Entitic vol] 10.7 fL Normal 9.5-13.5 [facility] Comment on above: Performed By: #### C BC #### [facility] [address] [place] [address] Dr. Annabella Lara PLT 179 103/ul Normal 150-450 [facility] Comment on above: Performed By: #### C BC #### [facility] [address] [place] [address] Dr. Annabella Lara RBC 5.53 106/ul Normal 4.70-6.10 [facility] Comment on above: Performed By: #### C BC #### [facility] [address] [place] [address] Dr. Annabella Lara WBC 7.0 103/ul Normal 4.0-11.0 [facility] Comment on above: Performed By: #### C BC #### [facility] [address] [place] [address] Dr. Annabella Lara Covid-19 PCR ([facility])on 01-16 SARS-CoV-2 (COVID-19) RNA KATY+probe Ql (Unsp spec) Not detected Normal NOT DETECTED [facility] Comment on above: Result Comment: When diagnostic [...] for this test is supported by the [place] of Health and Human Service's declaration that [...] be used). Performed By: #### C VDTBH ####[facility] [address] [address]Dr. Annabella Lara DRUG SCREEN RAPID (URINE)on 01-28-2022 AMP Negative Normal NEGATIVE [facility] Comment on above: Performed By: #### D RUGRPD ####[facility] [address] [address]Dr. Annabella Lara BAR Negative Normal NEGATIVE [facility] Comment on above: Performed By: #### D RUGRPD ####[facility] [address] [address]Dr. Annabella Lara BUP Negative Normal NEGATIVE [facility] Comment on above: Performed By: #### D RUGRPD ####[facility] [address] [address]Dr. Annabella Lara BZO Negative Normal NEGATIVE [facility] Comment on above: Performed By: #### D RUGRPD ####[facility] [address] [place], [place] [address]Dr. Annabella Lara DEQUAN Negative Normal NEGATIVE [facility] Comment on above: Performed By: #### D RUGRPD ####[facility] [address] [place], [place] [address]Dr. Annabella Lara CUT-OFFS SEE BELOW Normal [facility] Comment on above: Result Comment: AMP (Amphetamine): 500ng/mL, BAR (Barbituates): 200 ng/mL, BZO (Benzodiazepines): 150 ng/mL, BUP (Buprenorphine): 10 ng/mL, DEQUAN (Cocaine): 150 ng/mL, mAMP (Methamphetamine): 500 ng/mL, MTD (Methadone): 200 ng/mL, OPI (Opiates): 100 ng/mL, OXY (Oxycodone): 100 ng/mL, PCP (Phencyclidine): 25 ng/mL, PPX (Propoxyphene): 300 ng/mL, THC (Cannabinoids): 50 ng/mL, TCA (Trycyclic Antidepressants): 300 ng/mL Performed By: #### D RUGRPD ####[facility] [address] [place], [place] [id number]. Annabella Lara DRUG CUT HEADER DRUG CLASS TEST SYSTEM CUT-OFF CONCENTRATIONS ARE FOLLOWS: Normal [facility] Comment on above: Performed By: #### D RUGRPD ####[facility] [address] [id number]. Annabella Lara mAMP Negative Normal NEGATIVE [facility] Comment on above: Performed By: #### D RUGRPD ####[facility] [address] [id number]. Annabella Lara MTD Negative Normal NEGATIVE [facility] Comment on above: Performed By: #### D RUGRPD ####[facility] [address] [address]Dr. Annabella Lara OPI Negative Normal NEGATIVE [facility] Comment on above: Performed By: #### D RUGRPD ####[facility] [address] [place], [place] [address]Dr. Annabella Lara OXY Negative Normal NEGATIVE [facility] Comment on above: Performed By: #### D RUGRPD ####[facility] [address] [address]Dr. Annabella Lara PCP Negative Normal NEGATIVE [facility] Comment on above: Performed By: #### D RUGRPD ####[facility] [address] [id number]. Annabella Lara PPX Negative Normal NEGATIVE [facility] Comment on above: Performed By: #### D RUGRPD ####[facility] [address] [address]Dr. Annabella Lara TCA Negative Normal NEGATIVE [facility] Comment on above: Performed By: #### D RUGRPD ####[facility] [address] [address]Dr. Annabella Lara THC Positive Abnormal NEGATIVE [facility] Comment on above: Performed By: #### D RUGRPD ####[facility] [address] [place], [place] [address]Dr. Annabella Lara ETHANOL (BLD ALC)on 01-29-20 22 ALC NOTE NOTE: 80 mg/dl is th e legal limit for a blood alcohol level Normal [facility] Comment on above: Performed By: #### E THANDRES ACET #### [facility] [address] [place] [address] Dr. Annabella Lara Ethanol [Mass/Vol] mg/dL Normal [facility] Comment on above: Performed By: #### E THANDRES ACET #### [facility] [address] [place] [address] Dr. Annabella Lara PROF 14(COMP METB)on 022 Albumin [Mass/Vol] 4.2 g/dL Normal 3.4-5.0 [facility] Comment on above: Performed By: #### C MP #### [facility] [address] [place] [address] Dr. Annabella Lara Albumin/Globulin [Mass ratio] 1.0 {ratio} Normal [facility] Comment on above: Performed By: #### C MP #### [facility] [address] [place] [address] Dr. Annabella Lara ALP [Catalytic activity/Vol] 82 U/L Normal 46-116 [facility] Comment on above: Performed By: #### C MP #### [facility] [address] [place] [address] Dr. Annabella Lara ALT [Catalytic activity/Vol] 31 U/L Normal 16-63 [facility] Comment on above: Performed By: #### C MP #### [facility] [address] [place] [address] Dr. Annabella Lara Anion gap [Moles/Vol] 6.9 mmol/L Normal [facility] Comment on above: Performed By: #### C MP #### [facility] [address] [place] [address] Dr. Annabella Lara AST [Catalytic activity/Vol] 24 U/L Normal 15-37 [facility] Comment on above: Performed By: #### C MP #### [facility] [address] [place] [address] Dr. Annabella Lara Bilirubin [Mass/Vol] 0.2 mg/dL Normal 0.2-1.0 [facility] Comment on above: Performed By: #### C MP #### [facility] [address] [address] [address] Annabella Lara Calcium [Mass/Vol] 9.2 mg/dL Normal 8.5-10.1 [facility] Comment on above: Performed By: #### C MP #### [facility] [address] [address] [address] Annabella Lara Chloride [Moles/Vol] 103 mmol/L Normal 98-107 [facility] Comment on above: Performed By: #### C MP #### [facility] [address] [address] [address] Annabella Lara CO2 [Moles/Vol] 30.5 mmol/L Normal 21.0-32.0 [facility] Comment on above: Performed By: #### C MP #### [facility] [address] [place] [address] Dr. Annabella Lara Creatinine [Mass/Vol] 0.80 mg/dL Normal 0.70-1.30 [facility] Comment on above: Performed By: #### C MP #### [facility] [address] [place] [address] Dr. Annabella Lara EGFR-AF MALDIVIAN >60 Normal >=60 [facility] Comment on above: Performed By: #### C MP #### [facility] [address] [place] [address] Dr. Annabella Lara EGFR-NON AF MALDIVIAN >60 Normal >=60 [facility] Comment on above: Performed By: #### C MP #### [facility] [address] [address] [address] Annabella Lara Globulin (S) [Mass/Vol] 4.0 g/dL Normal [facility] Comment on above: Performed By: #### C MP #### [facility] [address] [address] [address] Annabella Lara Glucose [Mass/Vol] 84 mg/dL Normal 74-106 [facility] Comment on above: Performed By: #### C MP #### [facility] [address] [address] [address] Annabella Lara Potassium [Moles/Vol] 4.4 mmol/L Normal 3.5-5.1 [facility] Comment on above: Performed By: #### C MP #### [facility] [address] [address] [address] Annabella Lara Protein [Mass/Vol] 8.2 g/dL Normal 6.4-8.2 [facility] Comment on above: Performed By: #### C MP #### [facility] [address] [address] [address] Annabella Lara Sodium [Moles/Vol] 136 mmol/L Normal 136-145 [facility] Comment on above: Performed By: #### C MP #### [facility] [address] [address] [address] Annabella Lara Urea nitrogen [Mass/Vol] 12.0 mg/dL Normal 6.4-19.3 [facility] Comment on above: Performed By: #### C MP #### [facility] [address] [address] [address] Annabella Lara Urea nitrogen/Creatinine [Mass ratio] 15.0 mg/mg Normal [facility] Comment on above: Performed By: #### C MP #### [facility] [id number] Annabella Lara SALICYLATEon 01-28-2022 SALICYLATE <2.8 Normal <=19.9 [facility] Comment on above: Performed By: #### E TH, ANDRES, ACET #### [facility] [id number] Annabella Lara Vital Signs Date Time Vital Sign Value Performing Clinician Facility 03-13-2023 07:30-0500 Body temperature 98.2 [degF] [facility] Darin Shammo Work Phone: [facility] 03-13-2023 07:30-0500 Diastolic blood pressure 73 mm[Hg] [facility] Darin Shammo Work Phone: [facility] 03-13-2023 07:30-0500 Heart rate 87 /min [employer] Darin Shammo Work Phone: [facility] 03-13-2023 07:30-0500 Respiratory rate 16 /min [employer] Darin Shammo Work Phone: [facility] 03-13-2023 07:30-0500 SaO2% (BldA) [Mass fraction] 97 % [employer] Darin Shammo Work Phone: [facility] 03-13-2023 07:30-0500 Systolic blood pressure 104 mm[Hg] [employer] Darin Shammo Work Phone: [facility] 03-11-2023 08:53-0500 Body weight 21.7 kg [employer] Darin Shammo Work Phone: [facility] 03-10-2023 10:39-0500 Body height 172.72 cm [employer] Darin Shammo Work Phone: [facility] 2022 07:30-0400 Body temperature 97.4 [degF] [employer] Darin Shammo Work Phone: [facility] 2022 07:30-0400 Diastolic blood pressure 85 mm[Hg] [employer] Darin Shammo Work Phone: [facility] 2022 07:30-0400 Heart rate 114 /min [employer] Darin Shammo Work Phone: [facility] 2022 07:30-0400 SaO2% (BldA) [Mass fraction] 100 % [employer] Darin Shammo Work Phone: [facility] 2022 07:30-0400 Systolic blood pressure 126 mm[Hg] [employer] Darin Shammo Work Phone: [facility] 10-02-2022 20:12-0400 Respiratory rate 16 /min [employer] Darin Shammo Work Phone: [facility] 10-01-2022 15:18-0400 Body height 172.72 cm [employer] Darin Shammo Work Phone: [facility] 10-01-2022 09:00-0400 Body weight 70.76 kg [employer]NAGER[employer] Darin Shammo Work Phone: [facility] 08-05-2022 15:21-0400 Diastolic blood pressure 70 mm[Hg] [employer] Darin Shammo Work Phone: [facility] 08-05-2022 15:21-0400 Heart rate 79 /min [employer]NAGER[employer] Darin Shammo Work Phone: [facility] 08-05-2022 15:21-0400 Respiratory rate 16 /min [employer] MANAGER[employer] Darin Shammo Work Phone: [facility] 08-05-2022 15:21-0400 SaO2% (BldA) [Mass fraction] 98 % [employer] Darin Shammo Work Phone: [facility] 08-05-2022 15:21-0400 Systolic blood pressure 111 mm[Hg] [employer] Darin Shammo Work Phone: [facility] 08-05-2022 07:30-0400 Body temperature 97.6 [degF] [employer] Darin Shammo Work Phone: [facility] 08-03-2022 12:02-0400 Body height 170.18 cm [employer]NAGER[employer] Darin Shammo Work Phone: [facility] 08-03-2022 12:02-0400 Body weight 72.57 kg [employer] MANAGER[employer] Darin Shammo Work Phone: [facility] 06-13-2022 07:30-0400 Body temperature 98 [degF] [employer] Darin Shammo Work Phone: [facility] 06-13-2022 07:30-0400 Diastolic blood pressure 68 mm[Hg] [employer] Darin Shammo Work Phone: [facility] 06-13-2022 07:30-0400 Heart rate 76 /min [employer]NAGER[employer] Darin Shammo Work Phone: [facility] 06-13-2022 07:30-0400 Respiratory rate 18 /min [employer] MANAGER[employer]BC Darin Shammo Work Phone: [facility] 06-13-2022 07:30-0400 SaO2% (BldA) [Mass fraction] 96 % [employer] MANAGER[employer] Darin Shammo Work Phone: [facility] 06-13-2022 07:30-0400 Systolic blood pressure 112 mm[Hg] [employer] Darin Shammo Work Phone: [facility] 06-12-2022 20:00-0400 Body height 170.18 cm [employer]NAGER[employer] Darin Shammo Work Phone: [facility] 06-12-2022 20:00-0400 Body weight 68.94 kg [employer]NAGER[employer] Darin Shammo Work Phone: [facility] 05-22-2022 13:15-0500 Body height 170.2 cm Cherise Ramirez DMD, MD [facility] 05-22-2022 13:15-0500 Body mass index (BMI) [Ratio] 23.49 kg/m2 Cherise Ramirez DMD, MD [facility] 05-22-2022 13:15-0500 Body weight 68.04 kg Cherise Ramirez DMD, MD Work Phone: [facility] Encounters Encounter Date Encounter Type Care Provider Facility Start: 01-06-2024 End: 01-06-2024 BernyAirseedo Heliospatti Luz NP Work Phone: [facility] Start: 01-06-2024 End: 01-06-2024 Bamboo flowsheet Kimmie Luz MANAGER [employer] Work Phone: [facility] Start: [...] Start: 12-16-2023 End: 12-16-2023 ambulatory Brandon Ca Facility:[facility] Start: 12-06-2023 End: 12-06-2023 ambulatory ARTI KACY Not Available Start: 11-29-2023 End: 11-29-2023 ambulatory ARTI KACY Not Available Start: 11-26-2023 End: 11-26-2023 ambulatory TAWANNA LAURENT Not Available Start: 11-22-2023 ambulatory [facility]KNOWN [facility]ER [facility] Start: 11-15-2023 End: 11-15-2023 ambulatory JUSTUS Fraire OLEKSANDR Not Available Start: 11-13-2023 ambulatory UNKNOWN PROVIDER Facili ty:[facility] Start: 11-12-2023 End: 11-12-2023 ambulatory KIMMIE LUZ Not Available Start: 07-24-2023 End: 07-26-2023 ambulatory UNKNOWN PROVIDER Facility:[facility] Start: 07-24-2023 End: 07-26-2023 Patient encounter procedure Onur Davila DDS Work Phone: [facility] Start: 07-03-2023 End: 08-17-2023 ambulatory [facility] Start: 07-03-2023 End: 07-03-2023 ambulatory ELLEN JOSHUA [facility] Start: 05-31-2023 End: 06-03-2023 ambulatory UNKNOWN PROVIDER Facility:[facility] Start: 04-17-2023 ambulatory UNKNOWN PROVIDER Facili ty:[facility] Start: 03-09-2023 End: 03-13-2023 Evaluation and management of inpatient [employer] MANAGER-BC Darin Montoya Work Phone: [facility] Work Phone: Start: 02-22-2023 End: 02-25-2023 Patient encounter procedure Onur Davila DDS Work Phone: [facility] Start: 02-22-2023 End: 02-25-2023 ambulatory UNKNOWN PROVIDER Facility:[facility] Start: 02-06-2023 End: 02-11-2023 ambulatory UNKNOWN PROVIDER Facility:[facility] Start: 02-06-2023 End: 02-11-2023 Patient encounter procedure Onur Davila DDS Work Phone: [facility] Start: 01-21-2023 ambulatory UNKNOWN PROVIDER Facili ty:[facility] Start: 12-28-2022 Telephone encounter Alfonzo grant DDS Work Phone: [facility] Comment on above: Dental Start: 11-16-2022 End: 11-20-2022 Patient encounter procedure Alfonzo Mccord DDS Work Phone: [facility] Start: 10-29-2022 End: 11-01-2022 Patient encounter procedure Alfonzo Mccord DDS Work Phone: [facility] Comment on above: Poor oral hygiene (P rimary Dx) Start: 10-11-2022 End: 10-15-2022 Patient encounter procedure Javed Mendez DDS Work Phone: [facility] Start: 10-08-2022 Orders Only Erum rivera DDS Work Phone: [facility] Start: 10-07-2022 Letter encounter Erum Sheldon matthews DDS Work Phone: [facility] Start: 09-28-2022 End: 2022 Evaluation and management of inpatient [employer] MANAGER[employer]BC Darin Shammo Work Phone: [facility] [place] [address] Work Phone: Start: 09-27-2022 End: 10-02-2022 Patient encounter procedure Alfonzo Mccord DDS Work Phone: [facility] Start: 09-05-2022 End: 09-10-2022 Patient encounter procedure Erma Rosemary DDS Work Phone: [facility] Start: 08-03-2022 Registered Recurring [employer] COMMODITY MANAGER-BC Jane sergey Shammo Work Phone: [facility] Start: 08-03-2022 End: 08-05-2022 Evaluation and management of inpatient [employer]ITY MANAGER-BC Darin Shammo Work Phone: [facility] [place] [address] Work Phone: Start: 07-16-2022 End: 07-18-2022 Patient encounter procedure Esther Menard DMD Work Phone: [facility] Start: 07-05-2022 End: 07-05-2022 Patient encounter procedure Erum Laboy DDS Work Phone: [facility] Comment on above: Arrived Start: 06-18-2022 End: 06-18-2022 Telemedicine consultation with patient Cherise Ramirez DMD, MD Work Phone: [facility] Comment on above: Myofascial pain (Asya ashley Dx) Start: 06-14-2022 End: 07-11-2022 ambulatory [place] Start: 06-14-2022 End: 06-14-2022 Office outpatient new 45 minutes Erum Laboy DDS Work Phone: [facility] Comment on above: Myalgia of masticati on muscle (Primary Dx); Myalgia of muscle of neck; Arthralgia of right temporomandibular joint Start: 06-12-2022 End: 06-13-2022 Evaluation and management of inpatient [employer]ITY MANAGER-BC Darin Montoya Work Phone: [facility] Work Phone: Start: 06-12-2022 End: 06-12-2022 ambulatory JOSÉ MANUEL MCKEON . Facility: Start: 06-08-2022 Clinical Support [facility] Start: 06-08-2022 End: 06-08-2022 Follow-up encounter Cherise Ramirez DMD, MD Work Phone: [facility] Start: 06-08-2022 End: 06-08-2022 Patient encounter procedure Cherise Ramirez DMD, MD Work Phone: [facility] Comment on above: Myofascial pain (Asya ashley Dx) Start: 06-05-2022 Telephone encounter Cherise gomes DMD, MD Work Phone: [facility] Comment on above: Urgent TMJ Symptoms Start: 06-04-2022 End: 06-05-2022 ambulatory DARIN MONTOYA Facility:[facility] Start: 06-04-2022 End: 06-04-2022 ambulatory DARIN MONTOYA Facility:[facility] Start: 05-28-2022 End: 05-28-[address] JUAN MADRIGAL Facility:[facility] Start: 05-22-2022 End: 05-22-2022 Patient encounter procedure Cherise Ramirez DMD, MD Work Phone: [facility] Comment on above: Myofascial pain (Asya ashley Dx) Start: 04-19-2022 End: 04-20-2022 ambulatory Chu Muñoz Facility[facility] Start: 04-19-2022 End: 04-19-2022 Patient encounter procedure Chu Muñoz [facility] Start: 01-28-2022 End: 01-28-2022 ambulatory PORTER HICKS Facility:[facility] Procedures Date Procedure Procedure Detail Performing Clinician Start: 05-22-2022 panoramic radiograph ic image Sma Enamorado DMD Work Phone: Plan of Treatment Date Care Activity Detail Author Start: 2052 Shingles (RZV) Vacci ne (1 of 2) Shingles (RZV) Vaccine (1 of 2) [facility] Start: 01-08-2024 End: 01-08-2024 ambulatory 01/08/2024 10:00 AM EDT Treatment [facility] [address] [facility] [address] [place] [id number] Tawanna Laurent, PT [facility] Start: 01-06-2024 End: 01-06-2024 Patient encounter procedure [facility] Comment on above: Arrived Start: 08-19-2023 End: 08-19-2023 Patient encounter procedure 08/19/2023 8:30 AM EDT Procedure Visit [facility] [address] [place] [address] Onur Kapadia DDS [address] [place] [address] [facility] Start: 04-17-2023 End: 04-17-2023 Patient encounter procedure 04/17/2023 1:00 PM EST Procedure Visit [facility] [address] [place] [address] Onur Kapadia DDS [address] [place] [address] [facility] Start: 03-27-2023 End: 03-27-2023 Patient encounter procedure 03/27/2023 8:30 AM EST Procedure Visit [facility] [address] [place] [address] Onur Kapadia DDS [address] [place] [address] [facility] Start: 03-25-2023 End: 03-25-2023 Patient encounter procedure 03/25/2023 11:30 AM EST Procedure Visit [facility] [address] [place] [address] Alfonzo Mccord DDS [address] [place] [address] [facility] Start: 03-13-2023 [facility] Start: 03-11-2023 Administration of prophylactic treatment [facility] Start: 03-09-2023 Referral to Vocational Instructor [facility] Start: 03-09-2023 Hospital admission [facility] Start: 02-18-2023 End: 02-18-2023 Patient encounter procedure 02/18/2023 10:30 AM EST Procedure Visit [facility] [address] [place] [address] Alfonzo Mccord DDS [address] [place] [address] [facility] Start: 02-06-2023 End: 02-06-2023 Patient encounter procedure 02/06/2023 1:00 PM EST Procedure Visit [facility] [address] [place] [address] Vaughn Barrera DDS [address] [place] [address] [facility] Start: 01-21-2023 End: 01-21-2023 Patient encounter procedure 01/21/2023 10:30 AM EST Procedure Visit [facility] [address] [place] [address] Alfonzo Mccord DDS [address] [place] [address] [facility] Start: 12-16-2022 Influenza vaccination Influenza Vacc ine (#1) [facility] Start: 11-30-2022 End: 11-30-2022 Patient encounter procedure [facility] Start: 11-16-2022 Influenza vaccination Influenza Vacc ine (#1) [facility] Start: 11-16-2022 End: 11-16-2022 Patient encounter procedure 11/16/2022 10:30 AM EDT Procedure Visit [facility] [address] [place] [address] Alfonzo Mccord DDS [address] [place] [address] [facility] Start: 10-25-2022 End: 10-25-2022 Patient encounter procedure 10/25/2022 11:00 AM EDT Procedure Visit [facility] [address] [place] [address] Alfonzo Mccord DDS [address] [place] [address] [facility] Start: 10-17-2022 End: 10-17-2022 Patient encounter procedure [facility] Start: 10-11-2022 End: 10-11-2022 Patient encounter procedure [facility] Start: 2022 [facility] Start: 09-28-2022 Administration of prophylactic treatment [facility] Start: 09-28-2022 Hospital admission [facility] Start: 09-05-2022 End: 09-05-2022 Patient encounter procedure 09/05/2022 Procedure Visit Dentistry Christian Curtis, DDS [address] [place] [address] [facility] Start: 08-23-2022 End: 08-23-2022 Patient encounter procedure 08/23/2022 Procedure Visit Dentistry Christian Curtis, DDS [address] [place] [address] [facility] Start: 08-05-2022 [facility] Start: 08-03-2022 Referral to Vocational Instructor [facility] Start: 08-03-2022 Hospital admission [facility] Start: 07-16-2022 End: 07-16-2022 Patient encounter procedure 07/16/2022 Procedure Visit Dentistry MessimiguelErum DDTorri [address] [place] [address] [facility] Start: 07-05-2022 End: 07-05-2022 Patient encounter procedure 07/05/2022 Procedure Visit Dentistry Garrykim AUGUSTUS Danielson [address] [place] [address] [facility] Start: 06-29-2022 End: 06-29-2022 Patient encounter procedure 06/29/2022 Procedure Visit Dentistry Erum Laboy DDTorri [address] [place] [address] [facility] Start: 06-18-2022 End: 06-18-2022 Telemedicine consultation with patient [facility] Comment on above: Arrived Start: 06-14-2022 End: 06-14-2022 Patient encounter procedure 06/14/2022 Procedure Visit Dentistry MessimiguelErum DDTorri [address] [place] [address] [facility] Start: 06-13-2022 [facility] Start: 06-12-2022 Hospital admission [facility] Start: 12-16-2021 Influenza vaccination Influenza Vacc ine (#1) [facility] Start: 2021 Hepatitis A (HAV) Vaccine (optional start 19+ years) Hepatitis A (HAV) Vaccine (optional start 19+ years) [facility] Start: 2020 Hepatitis C screening Hepatitis C An tibody [facility] Start: 2020 Tetanus + diphtheria + acellular pertussis vaccine (product) Tdap Booster [facility] Start: 2018 Meningococcal B (Bexsero,OMV) Vaccine (Optional,16-23 years) Meningococcal B (Bexsero,OMV) Vaccine (Optional,16-23 years) [facility] Start: 2018 Meningococcal B (Bexsero,OMV) Vaccine (Optional,16-23 years) (#1) Meningococcal B (Bexsero,OMV) Vaccine (Optional,16-23 years) (#1) [facility] Start: 2017 HIV screening HIV Test [facility] Start: 2013 Vaccination for jose rafael n papillomavirus [facility] Start: 2008 [facility]neum[facility] Start: 04-05-2003 COVID-19 Vaccine (#1) COVID-19 Vacci ne (#1) [facility] Start: 2002 Hepatitis B vaccination Hepati tis B (HBV) Vaccine (1 of 3 - 3-dose series) [facility] Patient Education Depression, Ad tahmina (DC) [facility] Health [place] Instructions [facility] Work Phone: Patient referral [facility] Work Phone: Payers Date Payer Category Payer Medicaid (Managed Care) [facility] MEDICAID [id number] 2022 Self-pay [id number] 2021 Unknown [id number] [id number] .[id number] 2002 Unknown [id number] 2.16.840.1.755509.3.579.2. 727 2002 Unknown [id number] 2.16.840.1.070885.3.579.2. 593 2002 Unknown [id number] 2.16.840.1.334688.3.579.2. 593 2002 Unknown [id number] 2.16.840.1.314372.3.579.2. 593 2002 Unknown [id number] 2.16.840.1.433525.3.579.2. 593 2002 Unknown [id number] 2.16.840.1.642074.3.579.2. 593 2002 Unknown [id number] 2.16.840.1.796976.3.579.2. 1286 2002 Unknown [id number] 2.16.840.1.900826.3.579.2. 1286 2002 Unknown [id number] 2.16.840.1.659722.3.579.2. 1286 2002 Unknown [id number] 2.16.840.1.823128.3.579.2. 732 2002 Unknown [id number] 2.16.840.1.286842.3.579.2. 732 2002 Unknown [id number] 2.16.840.1.913127.3.579.2. 732 2002 Unknown [id number] 2.16.840.1.223146.3.579.2. 732 2002 Unknown [id number] 2.16.840.1.489752.3.579.2. 732 2002 Unknown [id number] 2.16.840.1.764893.3.579.2. 73 2002 Unknown [id number] 2.16.840.1.139804.3.579.2. 2002 Unknown [id number] 2.16.840.1.332552.3.579.2. 2002 Unknown [id number] 2.16.840.1.290851.3.579.2. 9 2002 Unknown [id number] 2.16.840.1.141043.3.579.2. 1258 2002 Unknown [id number] 2.16.840.1.676526.3.579.2. 1258 2002 Unknown [id number] 2.16.840.1.175273.3.579.2. 1258 2002 Unknown [id number] 2.16.840.1.678930.3.579.2. 1258 2002 Unknown [id number] 2.16.840.1.360398.3.579.2. 1258 2002 Unknown [id number] 2.16.840.1.920070.3.579.2. 1259 1959 Unknown [id number] Unknown [id number] 2.16840.1.600186.3.579.2. 531 Unknown [id number] 2.16840.1.746163.3.579.2. 531 Social History Date Type Detail Facility Tobacco smoking status [facility] Start: 05-22-2022 End: 12-16-2023 Sex Assigned At Male [facility] Start[facility] 05-22-2022 [facility] History of tobacco use Cigar Smoker [facility] Start: 05-22-2022 End: 11-12-2023 Tobacco use and exposure Smokeless tobacco non-user [facility] Start: 05-22-2022 Tobacco Comment Patient stated that he smokes marijuana cigars on a daily basis. [facility] Start: 2002 Sex Assigned At Not on file [facility] Start: 06-13-2022 End: 11-12-2023 Tobacco smoking status NHIS Never smoked tobacco (finding) [facility] Start: 2002 Sex Assigned At Male [facility] Start: 05-22-2022 End: 12-16-2023 History of Social function [facility] Start: 12-16-2023 Alcoholic beverage intake Lifetime non-drinker (finding) [facility] Start: 09-17-2023 Alcohol Comment Caffeine: 1-2 cups per day [facility] Healthcare Goals Date Patient Goal Desired Activity /State Functional Status Date Assessment Result Facility 03-13-2023 Functional status Patient at Baseline [facility] Work Phone: 2022 Functional status Patient at Baseline [facility] Work Phone: 08-05-2022 Functional status Patient at Baseline [facility] Work Phone: 06-13-2022 Functional status Patient at Baseline [facility] Work Phone: Mental Status Date Assessment Result Facility 03-13-2023 Cognitive function Cognitive Sta tus Patient at Baseline [facility] Work Phone: 2022 Cognitive function Cognitive Sta tus Patient at Baseline [facility] Work Phone: 08-05-2022 Cognitive function Cognitive Sta tus Patient at Baseline [facility] Work Phone: 06-13-2022 Cognitive function Cognitive Sta tus Patient at Baseline [facility] Work Phone: Clinical Notes 04-19-2022 to 07-24-2023 Onur Kapadia DDS - 07/24/2023 1:08 PM EDT Note Date & Type Note Facility 07-24-2023 History of Presen t illness Narrative ----- Saturday, July 24, 2023 at 4:26:32 PM ----- ----- Provider: [id number] Resident Michael -- Clinic: [facility] ----- COMPOSITE JAINISM Patient is scheduled for Tenriism on tooth #10-DL and 11-MDL. Reviewed Medical History. Pt exhibited the following conditions: No significant medical history Patient is ready for treatment. Topical Benzocaine gel applied at the injection site for 2 minutes. Administered 1 carpules of Lidocaine, 2% with Epinephrine 1:100,000,. Isolation achieved. Decay/existing cheondoism removed, cavity prepared. Selectively etched enamel with 37% phosphoric acid, rinsed, and blot dried. OptiBond delaney applied and light-cured. Condensed packable composite shade a3 in light cured increments using Mylar strip and wedge. Finished with finishing burs, checked occlusion, verified proximal contacts and cheondoism was polished. Rinsed and suctioned intraorally, advised patient to not eat until local anesthesia wears off. POST OPERATIVE Periapical (single) RADIOGRAPH TAKEN. NOTE: In the post op x ray I saw that mesial cheondoism on # 10 was fractured. It has to be replace in his next appointment Next Visit: Restorative ----- Signed on July at 8:19:57 AM ----- ----- Provider: [id number] - Christian Troncoso DDS -- Clinic: [facility] ----- documented in this encounter [facility] 03-13-2023 Discharge summary Note Date/Time March 13, 2023 11:44am [facility] [address] [place] [address] Discharge Summary Signed Patient: Gerardo Rosenberg MR#: [id number] : 2000 Acct:[id number] Age/Sex: 22 / M Adm Date: 3 Loc: 1S Room: [address] [place] [address]: Shubham Ding MD Copies to: MD Darin Posada, [facility]~ Providers Date of Discharge: 03/13/23 Discharging [...] Living: With family Employment: Working at [place] Patient 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 He tolerated [...] Instructions: Important Contact Information You can call [facility] Health at [phone] any time day or night if you have emergent questions or question regarding discharge instructions. If at any time you are feeling an increase inyour psychiatric symptoms, call your physician or behavioral healthcare provider. If any time you have thoughts of harming yourself or others contact one of the following: Call 98-8 (available 08/10) Crisis Text Line (available 08/10) text 4HOPE to [phone] [facility] Hope Line (available 8 a.m. Midnight) call [phone] ([phone]) Regular Diet No Activity Restrictions Instructions: Depression, Adult (DC), [facility] Behavioral Health DC Instructions Prescriptions: New bupropion HCl 150 mg Tablet Extended Release 24 Hr 150 mg PO QAM 30 Days Qty: 30 0RF Follow Up: [facility] [Other] - 03/19/23 12:45 pm (Psychiatry: Saturday03/19/23 at 12:45pm with REG Araya in [place] office. ) [facility] [Other] - 04/23/23 10:15 am (Counseling: Saturday04/23/23 at 10:15am with Angela Umaña in the [place] office. ) Darin Montoya, [employer] COMMODITY MANAGER[employer]BC [Primary Care Provider] - (Please contact for any medical needs or concerns.) Documented By: Shubham Ding MD 03/13/23 1142 Signed By: <Electronically signed by Shubham Ding MD> 03/13/23 3977 [facility] Work Phone: 1(412) 320-185912-27-2023 Hospital Discharge instructions Additional Instructions Important Contact Information You can call [facility] at [phone] any time day or night if you have emergent questions or question regarding discharge instructions. If at any time you are feeling an increase in your psychiatric symptoms, call your physician or behavioral healthcare provider. If any time you have thoughts of harming yourself or others contact one of the following: Call 8-8 (available 08/10) Crisis Text Line (available 08/10) text 4HOPE to [phone] [facility] Hope Line (available 8 a.m. Midnight) call [phone] ([phone]) Regular Diet No Activity [facility] Work Phone: 1(329) 568-746112-26-2023 Progress note Author Shubham Ding [facility] March 12, 2023 12:38pm Note Date/Time March 12, 2023 12:38pm [facility] [address] [place] [address] Psychiatry Progress Note Signed Patient: Gerardo Rosenberg MR#: [id number] : 2000 Acct:[id number] Age/Sex: 22 / M Adm Date: 3 Loc: Room: [address] [place] [address] Type : ADM IN Attending Dr: Shubham [...] signed by Shubham Ding MD> 03/12/23 1238 [facility] Work Phone: 1(499) 429-857412-25-2023 Progress note Author Shubham Ding [facility] March 11, 2023 10:28am Note Date/Time March 11, 2023 10:28am [facility] [address] [place] [address] Psychiatry Progress Note Signed Patient: Gerardo Rosenberg MR#: [id number] : 2000 Acct:[id number] Age/Sex: 22 / M Adm Date: 3 Loc: Room: [address] [place] [address] Type : ADM IN Attending Dr: Shubham [...] signed by Shubham Ding MD> 03/11/23 1028 [facility] Work Phone: 1(435) 614-410312-24-2023 Progress note Author Shubham Ding [facility] March 10, 2023 10:19am Note Date/Time March 10, 2023 10:19am [facility] [address] [place] [address] Psychiatry Progress Note Signed Patient: Gerardo Rosenberg MR#: [id number] : 2000 Acct:[id number] Age/Sex: 22 / M Adm Date: 3 Loc: Room: [address] [place] [address] Type : ADM IN Attending Dr: Shubham [...] signed by Shubham Ding MD> 03/10/23 1019 [facility] Work Phone: 1(144) 868-449512-23-2023 History and physical note Author Shubham Ding [facility] March 09, 2023 10:41am Note Date/Time March 09, 2023 10:41am [facility] [address] [place] [address] Psychiatry H&P Signed Patient: Gerardo Rosenberg MR#: [id number] : 2000 Acct:[id number] Age/Sex: 22 / M Adm Date: 3 Loc: Room: [address] [place] [address] Type: ADM IN Attending Dr: Shubham Ding MD Copies to: MD Darin Posada, [facility]~ Date of Service: 03/09/2023 HPI History [...] Living: With family Employment: Working at [place] Review of symptoms: Constitutional: Denies chills and [...] homicidality, reported suicidality Insight: fair Judgment: fair [facility] Medical History Anxiety Carpal tunnel syndrome on [...] signed by Shubham Ding MD> 03/09/23 1041 [facility] Work Phone: 1(686) 963-393911-22-2023 History of Present illness Narrative* Onur Kapadia DDS - 02/06/2023 1:57 PM EST ----- Saturday, February 06, 2023 at 2:01:57 PM ----- ----- Provider: [id number] Forest -- Clinic: [facility] ----- COMPOSITE JAINISM Patient is scheduled for Tenriism on tooth #4 and 5 surface B5. Reviewed Medical History. Pt exhibited the following conditions: No significant medical history Patient is ready for treatment. Topical Benzocaine gel applied at the injection site for 2 minutes. Administered 1 carpules of Articaine, 4% with Epinephrine 1:100,000,. Isolation achieved. Decay/existing cheondoism removed, cavity prepared. Selectively etched enamel with 37% phosphoric acid, rinsed, and blot dried. OptiBond delaney applied and light-cured. Condensed packable composite shade a2 in light cured increments using Mylar strip and wedge. Finished with finishing burs, checked occlusion, verified proximal contacts and cheondoism was polished. Rinsed and suctioned intraorally, advised patient to not eat until local anesthesia wears off. POST OPERATIVE RADIOGRAPH TAKEN. Next Visit: Restorative ----- Signed on Monday, February 06, 2023 at 2:08:28 PM ----- ----- Provider: Michael Troncoso DDS -- Clinic: [facility] ----- documented in this [id number] Telephone encounter Note* Telephone Encounter - Karla Tony - 12/28/2022 1:30 PM EDT Situation: UPDATE Background: Pt would like Provider Suri to msg him on Tingzhart. Pt states he is unable to msg provider because their msgs have . Pt would like to stay in contact with provider via [employer] in order to schedule his trigger point appts. Pt does not want to call in to be scheduled. Pt last seen 11/16/22 w [facility] Assessment: n/a Recommendation: VIDHYA Thank you :) Msg sent to [facility] on 12/28/22 [id number] Miscellaneous Notes* Telephone Encounter - Karla Tony - 12/28/2022 1:30 PM EDT Situation: UPDATE Background: Pt would like Provider Suri to msg him on mychart. Pt states he is unable to msg provider because their msgs have . Pt would like to stay in contact with provider via [employer] in order to schedule his trigger point appts. Pt does not want to call in to be scheduled. Pt last seen 11/16/22 w [facility] Assessment: n/a Recommendation: VIDHYA Thank you :) Msg sent to [facility] on 12/28/22 documented in this [id number] History of Present illness Narrative* Alfonzo Mccord DDS - 11/16/2022 12:00 AM EDT ----- Wednesday, November 16, 2022 at 11:09:37 AM ----- ----- Provider: [id number] Tessa Mccord, Fellow -- Clinic: [facility] ----- Patient returned for trigger point injections [...] 2022 at 9:53:55 PM ----- ----- Provider: [id number] Tessa Cruz DMD -- Clinic: [facility] ----- documented in this [id number] History of Present illness Narrative* Javed Mendez DDS - 10/11/2022 11:19 AM EDT ----- September at 2:40:08 PM ----- ----- Provider: [id number] Resident Tee -- Clinic: [facility] ----- COMPOSITE JAINISM Patient is scheduled for Tenriism on tooth #31 surface MOLB. Reviewed Medical History. Pt exhibited the following conditions: nothing mentioned in EPIC Patient is ready for treatment. Topical Benzocaine gel applied at the injection site for 2 minutes. Administered 1 carpules of Lidocaine, 2% with Epinephrine 1:100,000,. Rubber dam isolation achieved. Decay/existing cheondoism removed, cavity prepared. [place] Selectively etched enamel with 37% phosphoric acid, rinsed, and blot dried. Xeno IV delaney applied and light-cured. Condensed packable composite shade A2 in light cured increments using Toffelmaire matrix band retainer and wedge. Finished with finishing burs, checked occlusion, verified proximal contacts and cheondoism was polished. Rinsed and suctioned intraorally, advised [...] September at 2:57:24 PM ----- ----- Provider: [id number] Tessa Troncoso DDS -- Clinic: [facility] ----- documented in this [id number] History of Present illness Narrative* Erum Laboy DDS - 10/08/2022 9:58 AM EDT Disruptive Behavior Progress Note Gerardo Rosenberg 2000 [id number] Type of disruptive behavior: Inappropriate verbal behavior [...] on a daily basis. documented in this [id number] Discharge summary Author Brandon cancino [facility] 2022 7:45am Note Date/Time 2022 7:45 am [facility] [address] [place] [address] Discharge Summary Signed Patient: Gerardo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
[2024-01-08 14:25] LABS: C Reactive Protein <0.50 mg/dL (<=0.50); Creatine Kinase 95 U/L (39-308)
[2024-01-08 14:51] LABS: Erythrocyte Sedimentation Rate 8 mm/hr (<=15)
== END 2024-01-08 13:21 | disposition home or self-care (01) ==
LOC: LAB 13:21
PROVIDERS: PCP Nurse Practitioner Family; Visit Provider Nurse Practitioner Family
DX: G89.29 Other chronic pain (principal)
CPT/HCPCS: 36415; 82550; 85652; 86140

== ENCOUNTER 2024-07-30 15:53 | Outpatient (OUT) | payer OTHER, SELFPAY | END 2024-07-30 15:54 | disposition home or self-care (01) | LOC: LAB 15:57 | PROVIDERS: PCP Nurse Practitioner Family | DX: M79.10 Myalgia, unspecified site (principal); M25.59 Pain in other specified joint | CPT/HCPCS: 36415; 81374 ==

== ENCOUNTER 2024-11-05 08:56 | Outpatient (OUT) | payer OTHER, SELFPAY ==
--- OUTSIDE RECORDS SUMMARY | 2022-09-26 10:00 | XMS_ITS | Continuity of Care Document ---
Author Organization [facility] Address [address] [place] [address] Phone Care Team Providers Care Lockstitch Hemmer Name Role Phone Vinicius Sears DMD Unavailable Unavailable Allergies, Adverse Reactions, Alerts Substance Reaction Status Criticality No Known Allergies Active No Inform ation Medications Medication Instructions Dosage Effective Dates (start - stop) Status Comments lamotrigine 100 mg tablet take 1 tablet by oral route every day 100 MG - Active Abilify 5 mg tablet take 1 tablet by ora l route every day 5 MG - Active mirtazapine 7.5 mg tablet take 1 tablet by oral route every day at bedtime 7.5 MG - Active gabapentin 300 mg capsule take 1 capsule by oral route 3 times every day 300 MG - Active duloxetine 20 mg capsule,delayed release take 1 capsule by oral route 2 times every day 20 MG - Active Procedures Procedure Date Intraoral-complete Series (bw) Comp Oral Eval New/estab Patient 2022 Nutrit Couns For Control Of [place] Dis Sep High Risk Advance Directives Directive Yes / No Effective Date File Name No Information Encounters Encounter Description Practice Location Reason(s) For Visit Diagnoses Date Provider Providers Copied on Encounter [facility], [address] [place] [address], [id number], [place] tel:[phone] Dental Clinic DN (chief complaint) Encounter for screening for dental disorders Selvinemely Colvin. [address] [place], [place], [id number], [place]. tel:[phone] Family History Family Member Type Diagnosis Age At Onset No Information Payers Payer name Insurance type Covered republican ID Yanick alexander(karina Szymanski [facility] Env[employer] [id number] D Medicaid ap - [facility] [id number] Social History Type Description Quantity Date Captured Comments Alcohol Use Details Unknown Caffeine Use Details Unknown Tobacco Use Status Current non-smoker Smoking Status Never smoker Non-Smoking Tobacco Use Details : No Details Available : No Details Available Sex Male Sexual Orientation Straight or heterosexual Gender Identity Male Vital Signs Date / Time: Height Weight BMI Pulse Rate Blood Pressure Temperature Respiratory Rate Body Surface Area Head Circumference Head Circ. Percentile Wt./Omar. Percentile BMI percentile Pulse Ox Inhaled Ox 2:08 PM 102 /min 115/70 mm[Hg] 98.50 F Chief Complaint And Reason For Visit From encounter dated '09/26/2022 14:00'. DN (chief complaint) Reason For Referral Reason For Referral No Information Plan Of Treatment Date Type Action Status Goal PRAPARE ASSESSMENT. Due on due Goal Depression screening. Due on due Goal Tdap. Due on due Goal Tdap Vaccine. Due on 2022 due Goal Influenza vaccine. Due on due Goal RLP. Due on due History Of Present Illness Encounter Date Complaint History Of Prese nt Illness DN Functional Status Date Functional Assessmen t No Information Instructions Date Instruction Additional Infor mation No Information Assessments Type Assessment Date No Information Patient Care Teams Name Effective Dates (start - stop) Status Members No Information
--- OUTSIDE RECORDS SUMMARY | 2024-11-05 08:59 | XMS_ITS | Encounter Summary ---
Author Organization [facility] Address [address] [address] Phone Care Team Providers Care Manager Financial Planning Name Role Phone Elizabeth Lucero Unavailable Unavailable Marilu Treadwell BDS Unavailable Reason for Visit * Reason Onset Date Comments Complex Treatment Planning 10/13/2024 Encounter Details Date Type Department Care Team (Late st Contact Info) Description 10/13/2024 Documentation Only [facility] [address] [phone] Elizabeth Lucero Social History Tobacco Use Types Packs/Day Years Used Date Smoking Tobacco: Never Smokeless Tobacco: Never Alcohol Use Standard Drinks/Week Comments Not Currently 0 (1 standard drink = 0.6 oz pur e alcohol) Sex and Gender Information Value Date Recorded Sex Assigned at Not on file Legal Sex Male 4:21 PM EDT Gender Identity Not on file Sexual Orientation Not on file documented as of this encounter Plan of Treatment Upcoming Encounters Date Type Department Care Team (Late st Contact Info) Description 01/15/2025 10:00 AM EDT Office Visit Orthodontics [address] [place] [phone] documented as of this encounter Visit Diagnoses Not on filedocumented in this encounter Care Teams Manager Financial Planning Relationship Specialty Start Date End Date Elizabeth Lucero Dental Student 07/28/24 Marilu Treadwell BDS Job Development Specialist Dentistry 07/28/24 documented as of this encounter
--- OUTSIDE RECORDS SUMMARY | 2024-11-05 08:59 | XMS_ITS | Encounter Summary ---
Author Organization [facility] Address [address] [address] Phone Care Team Providers Care Snow Removing Supervisor Name Role Phone Elizabeth Lucero Unavailable Unavailable Marilu Treadwell BDS Unavailable Reason for Visit * Reason Onset Date Comments Treatment Planning 09/04/2024 Encounter Details Date Type Department Care Team (Late st Contact Info) Description 09/04/2024 Documentation Only [facility] [employer] [address] [address] Elizabeth Lucero Social History Tobacco Use Types [...] 10:00 AM EDT Office Visit Orthodontics [address] [place] [address] documented as of this encounter Visit Diagnoses Not on filedocumented in this encounter Care Teams Snow Removing Supervisor Relationship Specialty Start Date End Date Elizabeth Lucero Dental Student 07/28/24 Marilu Treadwell BDS Setup Technician Dentistry 07/28/24 documented as of this encounter
--- OUTSIDE RECORDS SUMMARY | 2024-11-05 08:59 | XMS_ITS | Clinical Summary ---
Author Organization [facility] Address [facility] [place] [address] Care Team Providers Care Advertising Account Executive Name Role Phone Tai Dixon MD Unavailable Allergies No known active allergies Medications calcium carbonate (OS-YELENA 500) 500 mg calcium (1,250 mg) tablet 05/04/2024 Active cholecalciferol (VITAMIN D3) 400 unit tab 05/04/2024 Active ARTHRITIS PAIN, DICLOFENAC, 1 % topical gel APPLY 1 GRAM up to THREE TIMES DAILY TO THE AFFECTED AREA(S) Active Active Problems Problem Noted Date Diagnosed Date Anorexia nervosa 08/07/2024 Overview (08/07/2024): Patient reported to RN Encounters Date Type Department Care Team Description 10/12/2024 8:00 AM EDT [facility] [address] [place] [id number] Abdirahman Little, Therapist No-show for appointment (Primary Dx) 08/07/2024 10:30 AM EDT Office Visit Neurology Pain [address] [place] [address] Angela Kelley DO Myalgia (Primary Dx); Pain in other joint; Anorexia nervosa (HCC) 08/07/2024 Travel from Last 3 Months Social History Tobacco Use Types Packs/Day Years Used Date Smoking Tobacco: Never Smokeless Tobacco: Never Tobacco Cessation:Counseling Given: Not Answered Alcohol Use Standard Drinks/Week Comments Not Currently 0 (1 standard drink = 0.6 oz pur e alcohol) Area Deprivation Index Answer Date Isrrael rded National Score (1-100), lower number is lower ri sk 94 08/07/2024 State Score (1-10), lower number is lower risk 9 08/07/2024 Data from: https://www.neighborhoodatlas.[facility]/. Last address used for calculation [address] 08/07/2024 Sex and Gender Information Value Date Recorded Sex Assigned at Not on file Legal Sex Male 10:17 AM EST Gender Identity Not on file Sexual Orientation Not on file Last Filed Vital Signs Vital Sign Reading Time Taken Comments Blood Pressure 107/88 08/07/2024 9:39 AM EDT Pulse 94 08/07/2024 9:39 AM EDT Temperature - - Respiratory Rate 16 08/07/2024 9:39 AM EDT Oxygen Saturation - - Inhaled Oxygen Concentration - - Weight 66.7 kg (147 lb 0.8 oz) 08/07/2024 9:39 A M EDT Height 170.2 cm (5' 7 ) 08/07/2024 9:39 AM EDT Body Mass Index 23.03 08/07/2024 9:39 AM EDT Plan of Treatment Health Maintenance Due Date Last Done Comments Peds To Adult Transition Ini tial Discussion 2014 Peds To Adult Transition Yarely ual Assessment 2016 HPV Vaccine (1 - Male 3-dose series) 2017 Meningococcal B Vaccine (1 o f 2 - Standard) 2018 Anxiety Screening 2020 Depression Screening 2020 HIV Screening 2020 Hepatitis C Screening 2020 Influenza Vaccine (#1) 2024 DTaP,Tdap,Td Vaccine (7 - Td or Tdap) 12/10/2024 12/10/2014, 11/05/2007, 01/04/2005, Additional history exists Hepatitis B Vaccine Completed 01/04/2005, 05/19/2004, 02/02/2004, Additional history exists Insurance [facility] MEDICAID Care Teams Advertising Account Executive Relationship Specialty Start Date End Date Tai Dixon MD [address] [place] [address] Family Medicine 01/23/24
--- OUTSIDE RECORDS SUMMARY | 2024-11-05 08:59 | XMS_ITS | Clinical Summary ---
Author Organization [facility] Address [facility] [id number] [address] [place] [address] Care Team Providers Care Product Distribution Specialist Name Role Phone Francisco Montoyaas CARLOTTA-ADMISSION SPECIALIST Primary Care Provider [phone] Allergies No known active allergies Medications gabapentin (NEURONTIN) 300 mg capsule Take 1 capsule (300 mg total) by mouth 3 (three) times a day. Active diclofenac sodium (VOLTAREN) 1 % gel Apply 2 g topically. 06/14/2022 Active buPROPion XL (WELLBUTRIN XL) 150 mg 24 hr tablet Take 1 tablet (150 mg total) by mouth in the morning. Active cyclobenzaprine (FLEXERIL) 10 mg tablet Take 1 tablet (10 mg total) by mouth 3 (three) times a day as needed for muscle spasms. Active carBAMazepine XR (TEGretol XR) 200 mg 12 hr tablet Take 1 tablet (200 mg total) by mouth in the morning and 1 tablet (200 mg total) before bedtime. Active Active Problems Problem Noted Date Diagnosed Date Penile pain 02/26/2023 Overview (02/26/2023): 02/26/23: Exam benign. I advise that he cut back on the frequency in which he masturbates as that triggers his pain. Could consider a month of meloxicam, but NSAIDS have caused GI upset in the past. He will address numbness with neurology at upcoming appointment. Assessment & Plan (02/26/2023 10:48 AM EST): I would like him to meet with 1 of the [place] physicians in 1-2 months. He will update them on his status. He feels that he will be able to cut down on how often he masturbates. Any additional diagnostics can be determined at his follow-up. Family History Medical History Relation Name Comments Cancer Father Heart disease Father Lung disease Father Relation Name Status Comments Father Social History Tobacco Use Types Packs/Day Years Used Date Smoking Tobacco: Never Smokeless Tobacco: Never Tobacco Cessation:Counseling Given: Not Answered Alcohol Use Standard Drinks/Week Comments Yes 0 (1 standard drink = 0.6 oz pur e alcohol) ocassional Childcare Answer Date Recorded Childcare Unknown 08/27/2018 Employment Answer Date Recorded Employment Unknown 08/27/2018 Hunger Screening Answer Date Recorded Within the past 12 months we worried whether our food would run out before we got money to buy more. Never True 07/03/2023 Within the past 12 months th e food we bought just didn't last and we didn't have money to get more. Never True 07/03/2023 Sex and Gender Information Value Date Recorded Sex Assigned at Not on file Legal Sex Male 12:00 PM EDT Gender Identity Not on file Sexual Orientation Not on file Last Filed Vital Signs Vital Sign Reading Time Taken Comments Blood Pressure 110/75 07/03/2023 11:06 AM EDT Pulse 75 07/03/2023 11:06 AM EDT Temperature 36.7 C (98 F) 06/19/2022 1:18 PM EDT Respiratory Rate 18 02/26/2023 9:34 AM EST Oxygen Saturation 98% 07/03/2023 11:06 AM EDT Inhaled Oxygen Concentration - - Weight 63.5 kg (140 lb) 07/03/2023 11:06 AM EDT Height 170.2 cm (5' 7 ) 07/03/2023 11:06 AM EDT Body Mass Index 21.93 07/03/2023 11:06 AM EDT Plan of Treatment Health Maintenance Due Date Last Done Comments Depression Screening 2014 Adult BMI Screening 07/02/2024 07/03/2023 Tobacco Screening 07/02/2024 07/03/2023 Influenza Vaccine 11/16/2024 DTaP,Tdap and Td Vaccines (7 - Td or Tdap) 12/10/2024 12/10/2014, 11/05/2007, 01/04/2005, Additional history exists Medical Devices Not on file Insurance [employer] Care Teams Product Distribution Specialist Relationship Specialty Start Date End Date Darin Montoya APRN-CNP PCP - General Primary Care Provider 06/19/22
--- OUTSIDE RECORDS SUMMARY | 2024-11-05 08:59 | XMS_ITS | Clinical Summary ---
Author Organization [facility] Address [address] [place] [address] Care Team Providers Care Attending Ambulatory Care Name Role Phone Keena Alvarez MD Unavailable [phone] Kimmie Luz NP Unavailable [phone] Rosalind Hawley DO Unavailable Suleman Leggett Unavailable Allergies No known active allergies Medications diclofenac sodium (Voltaren) 1 % gelIndications:C ervicalgia,Muscl e spasm Apply to neck area three times/day 2 g 5 01/06/2024 Active Oyster Shell Calcium 500 MG tablet 05/04/2024 Active cholecalciferol (Vitamin D-3) 10 MCG (400 UNIT) tablet 05/04/2024 Active Active Problems Problem Noted Date Diagnosed Date 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 Muscle spasm 11/12/2023 Myalgia 11/12/2023 Anesthesia of skin 11/12/2023 CTS (carpal tunnel syndrome) 09/17/2023 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 Paresthesia 09/17/2023 Chronic neck pain 09/17/2023 Cervical radicular pain 09/17/2023 Cervicalgia 09/17/2023 Paresthesia of skin 09/17/2023 Encounters Date Type Department Care Team Description 10/08/2024 Telephone [facility] [address] [place] [address] Isaiah Beasley PTA per Referring provider; PT from Last 3 Months Family History Medical History Relation Name Comments Cancer Father Relation Name Status Comments Father Social History Tobacco Use Types Packs/Day Years Used Date Smoking Tobacco: Never Smokeless Tobacco: Never Tobacco Cessation:Counseling Given: Not Answered Alcohol Use Standard Drinks/Week Comments Never 0 (1 standard drink = 0.6 oz pur e alcohol) Caffeine: 1-2 cups per day Sex and Gender Information Value Date Recorded Sex Assigned at Not on file Legal Sex Male 11:07 PM EDT Gender Identity Not on file Sexual Orientation Not on file Last Filed Vital Signs Vital Sign Reading Time Taken Comments Blood Pressure 122/70 05/07/2024 10:21 AM EST Pulse 69 05/07/2024 10:21 AM EST Temperature - - Respiratory Rate - - Oxygen Saturation 97% 05/07/2024 10:21 AM EST Inhaled Oxygen Concentration - - Weight 66.2 kg (146 lb) 05/07/2024 10:21 AM EST Height 165.1 cm (5' 5 ) 05/07/2024 10:21 AM EST Body Mass Index 24.3 05/07/2024 10:21 AM EST Plan of Treatment Health Maintenance Due Date Last Done Comments Influenza Vaccine (#1) 2024 Insurance [employer] Care Teams Attending Ambulatory Care Relationship Specialty Start Date End Date Suleman Leggett PA [address] [place] [address] PCP - [facility] 03/18/24 Keena Alvarez MD [address] [place] [id number] Primary Care Provider Family Medicine 11/15/23 Kimmie Luz NP [facility] [place], [place] [id number] Nurse Practitioner Neurology 01/13/24 Rosalind Hawley DO [address] [place] [address] Referring Physician Neurology 01/13/24
--- OUTSIDE RECORDS SUMMARY | 2024-11-05 08:59 | XMS_ITS | Encounter Summary ---
Author Organization [facility] Address [address] [address] Phone Care Team Providers Care Senior C Web Developer Name Role Phone Elizabeth Lucero Unavailable Unavailable Marilu Treadwell BDS Unavailable Encounter Details Date Type Department Care Team (Late st Contact Info) Description 09/02/2024 Documentation Only [facility] [address] [place] [phone] Jessica Doty Social History Tobacco Use Types Packs/Day Years [...] on file documented as of this encounter Progress Notes * Jessica Doty - 09/02/2024 9:57 AM EDT Procedure Details * Jessica Doty - 09/02/2024 9:57 AM EDT 23 year old male, vitals (normal)- 121/70 HR 72 BMP, 14 RR, ASA 2, has TMD, osteopenia, and carpal tunnel (all controlled). Applied 20% Benzocaine topical gel in the area of the injection. Administered an infiltration on patients left side #14 using a 27 gauge short needle and the anesthetic of 4% articaine with 1:100,000 Epinephrine (Septocaine). Administered one full cartridge (1.7 mg). Pt reported feeling fine after, no adverse reactions reported. documented in this encounter Plan of Treatment Upcoming Encounters Date Type Department Care Team (Late st Contact Info) Description 01/15/2025 10:00 AM EDT Office Visit Orthodontics [address] [place] [address], [address] [place] [address] documented as of this encounter Visit Diagnoses Not on filedocumented in this encounter Care Teams Senior C Web Developer Relationship Specialty Start Date End Date Elizabeth Lucero Dental Student 07/28/24 Marilu Treadwell BDS [facility] 07/28/24 documented as of this encounter
--- NOTE | 2024-11-05 09:00 | MR_ITS ---
[facility] [place] [id number] Patient Name: BETTY SALGUERO MRN: [id number] date: 2000 Sex: M Assigned Patient Location: MRI Current Patient Location: Accession/Order Number: [id number] Exam Date: 11/05/2024 10:55 Report Date: 11/05/2024 14:23 At the request of: REYNOLD GUZMAN Procedure: MR shoulder RT wo con MR RIGHT SHOULDER CLINICAL INFORMATION: Shoulder pain.. COMPARISON: 10/30/2003. PROCEDURE: Axial, oblique coronal, and oblique sagittal long TR images of the shoulder were obtained. FINDINGS: ROTATOR CUFF AND ASSOCIATED STRUCTURES Biceps Tendon: Mild increased signal intensity is noted along the proximal long head of the biceps tendon with a small amount of fluid along the tendon sheath suggesting tenosynovitis. Rotator cuff: Mild increased signal intensity is noted in the supraspinatus tendon near the insertion site suggesting tendinopathy. The rotator cuff tendons are intact. The subscapularis constituent of the rotator cuff is intact. Musculature: There is no muscular tear, contusion, or atrophy. Bursa: There is a small amount of fluid in the subacromial bursa. OSSEOUS STRUCTURES Acromioclavicular joint: There are mild degenerative changes of the acromioclavicular joint. A type 2 acromion configuration is noted. There is no anterior or lateral acromial downsloping. Bones: No Hill-Sachs, reverse Hill-Sachs, or bony Bankart lesions are seen. There are no fractures or regions of abnormal bone marrow signal intensity. GLENOHUMERAL JOINT Joint: There is no glenohumeral joint effusion. Cartilage: No focal hyaline cartilage defects are noted. Labrum: The labrum is not optimally evaluated. Other support structures: No capsular or ligamentous abnormality is seen. MR/MR shoulder RT wo con IMPRESSION: 1. Mild increased signal intensity is noted in the supraspinatus tendon near the insertion site suggesting tendinopathy. 2. Mild increased signal intensity is noted along the proximal long head of the biceps tendon with a small amount of fluid along the tendon sheath suggesting tenosynovitis. Impression dictated by: Josef Emanuel M.D. 11/05/2024 2:23 PM Dictation Location: [place] [address] Electronically authenticated by: [id number] Y Date: 11/05/2024 14:23
--- OUTSIDE RECORDS SUMMARY | 2024-11-05 09:00 | XMS_ITS | Encounter Summary ---
Author Organization [facility] Address [address] [address] Phone Care Team Providers Care Flavor Tank Tender Name Role Phone Elizabeth Lucero Unavailable Unavailable Marilu Treadwell BDS Unavailable Reason for Visit * Reason Onset Date Comments Treatment Planning 09/02/2024 Encounter Details Date Type Department Care Team (Late st Contact Info) Description 09/02/2024 Documentation Only [facility] [address] [place] [phone] Elizabeth Lucero Social History Tobacco Use Types [...] 10:00 AM EDT Office Visit Orthodontics [address] [place] [phone] documented as of this encounter Visit Diagnoses Not on filedocumented in this encounter Care Teams Flavor Tank Tender Relationship Specialty Start Date End Date Elizabeth Lucero Dental Student 07/28/24 Marilu Treadwell BDS [employer] [facility] Dentistry 07/28/24 documented as of this encounter
--- OUTSIDE RECORDS SUMMARY | 2024-11-05 09:03 | XMS_ITS | CCD ---
Author Organization [facility] Care Team Providers Care Tractor Operator Name Role Phone Juan Madrigal Primary Care Physician Chu Muñoz Attending Unavailable Chu Muñoz Admitting Unavailable Unavailable Primary Care Provider Unavailabl brigitte MCKEON ., JOSÉ MANUEL JAIN Consulting Unavailabl e REINECK, DR VISHNU Cervantes Admitting Unavailabl e SHAMMO, DARIN Primary Care Unavailable REINECK, DR VISHNU Cervantes Attending Unavailabl e FABIOLA, PORTER Admitting Unavailable FABIOLA, PORTER Attending Unavailable FABIOLA, PORTER Consulting Unavailable HOUSE, DR RIVERA Primary Care Unavailable NAGI ., ANJEL Consulting Unavailable SHAMMO, DARIN Primary Care Unavailable REINECK, DR VISHNU Cervantes Attending Unavailabl e REINVIRGIL, DR VISHNU Cervantes Consulting Unavailabl e SANTY, DR IVSHNU Cervantes Admitting Unavailabl e HOUSE, DR RIVERA Primary Care Unavailable SHAMMO, DARIN Admitting Unavailable SHAMMO, DARIN Attending Unavailable SHAMMO, DARIN Consulting Unavailable SHAMMO, DARIN Primary Care Unavailable ZIEBER, DR SANKET Mcgovern Consulting Unavailable SHAMMO, DARIN Admitting Unavailable SHAMMO, DARIN Attending Unavailable SHAMMO, DARIN Consulting Unavailable Vasilyeva AUGUSTUS, Erum Unavailable Ashley ALVAREZ MD, Cherise Unavailable [phone] Shammo, MANAGER PROGRESSIVE CARE-BC Darin T Primary Care Provider MD Tana Ca Admit Provider MD Tana Ca Attending Provider Shammo, MANAGER PROGRESSIVE CARE-BC Darin T Primary Care Provider [phone] DO Christiano Phelps Emergency Provider MD Radha Dingyemi Admit Provider MD Shubham Ding Attending Provider MD Tana Ca Attending Provider Narda DDS, Erum Unavailable [phone] Suri DDS, Parveez Unavailable Shammo, MANAGER PROGRESSIVE CARE-BC Darin T Primary Care Provider MD Shubham Ding Admit Provider [phone] MD Shubham Ding Attending Provider [phone] Ashley ALVAREZ MD, Cherise Unavailable ELLEN PAUL Attending Unavailable SHAMMO, DARIN Referring Unavailable SHAMMO, DARIN Primary Care Unavailable VERHOELLEN MCCARTNEY Referring Unavailable SHAMMO, DARIN Primary Care Unavailable VERHOELLEN MCCARTNEY Referring Unavailable SHAMMO, DARIN Primary Care Unavailable Shammo, Darin T Primary Care Unavailable Shubham Ding Admitting Unavailable Shubham Ding Attending Unavailable Brandon Ca Admitting Unavailab le Brandon Ca Attending Unavailab le Shammo, Darin T Primary Care Unavailable Rosalind Hawley DO Unavailable Kim NEWTON, Keena Unavailable Natty DIGITAL AD TRAFFICKER, Kimmie Unavailable Marleen LARIOS Rosalind Unavailable Unavailable Primary Care Provider [facility] Justus Turner Unavailable Shammo HOSPICE ENTRANCE ATTENDANT-PIPE STEM ALIGNER, Darin Primary Care Provider Destiny NEWTON, Tai Lepe Unavailable PROVIDER, UNKNOWN Admitting Unavailable ONUR KAPADIA Attending Unavaila ble PROVIDER, UNKNOWN Admitting Unavailable ERIC WOODRUFF Attending Unavaila ble PROVIDER, UNKNOWN Admitting Unavailable JOSE LEVI Attending Unavailable PROVIDER, UNKNOWN Admitting Unavailable MARLIN JOHN Attending Unavailable PROVIDER, UNKNOWN Admitting Unavailable MICHAEL CHAVIS Attending Unavailable PROVIDER, UNKNOWN Admitting Unavailable CHAVISMICHAEL Attending Unavailable BLACKSTON, BRIAN T Attending Unavailable HILLS, JUSTUS D Referring Unavailable BLACKSTON, BRIAN T Attending Unavailable HILLS, JUSTUS D Referring Unavailable BLACKSTON, BRIAN T Attending Unavailable HILLS, JUSTUS D Referring Unavailable BRINK, KIKA Attending Unavailable HILLS, JUSTUS D Referring Unavailable BRINK, KIKA Attending Unavailable HILLS, JUSTUS D Referring Unavailable BRINK, KIKA Attending Unavailable HILLS, JUSTUS D Referring Unavailable BRINK, KIAK Attending Unavailable HILLS, JUSTUS D Referring Unavailable BLACKSTON, BRIAN Franks Attending Unavailable HILLS, JUSTUS D Referring Unavailable GILLMOR, KIMMIE Attending Unavailable KACY, MCKINLEY Attending Unavailable HILLS, JUSTUS D Referring Unavailable BRINK, KIKA Attending Unavailable HILLS, JUSTUS D Referring Unavailable BRINK, KIKA Attending Unavailable HILLS, JUSTUS D Referring Unavailable BRINK, KIKA Attending Unavailable HILLS, JUSTUS D Referring Unavailable BRINK, KIKA Attending Unavailable HILLS, JUSTUS D Referring Unavailable GILLMOR, KIMMIE Attending Unavailable HILLS, JUSTUS D Attending Unavailable LAURENTTAWANNA Attending Unavailable HILLS, JUSTUS D Referring Unavailable KACY, MCKINLEY Attending Unavailable HILLS, JUSTUS D Referring Unavailable KACY, MCKINLEY Attending Unavailable HILLS, JUSTUS D Referring Unavailable HILLS, JUSTUS D Attending Unavailable HILLS, JUSTUS D Referring Unavailable BRINK, KIKA Attending Unavailable HILLS, JUSTUS D Referring Unavailable BRINK, KIKA Attending Unavailable HILLS, JUSTUS D Referring Unavailable BRINK, KIKA Attending Unavailable HILLS, JUSTUS D Referring Unavailable KACY, MCKINLEY Attending Unavailable HILLS, JUSTUS D Referring Unavailable BRINK, KIKA Attending Unavailable HILLS, JUSTUS D Referring Unavailable BRINK, KIKA Attending Unavailable HILLS, JUSTUS D Referring Unavailable BRINK, KIKA Attending Unavailable HILLS, JUSTUS D Referring Unavailable BRINK, KIKA Attending Unavailable HILLS, JUSTUS D Referring Unavailable BRINK, KIKA Attending Unavailable HILLS, JUSTUS D Referring Unavailable BRINK, KIKA Attending Unavailable HILLS, JUSTUS D Referring Unavailable GILLMOR, KIMMIE Attending Unavailable GILLMOR, KIMMIE Attending Unavailable BLACKSTON, BRIAN Franks Attending Unavailable HILLS, JUSTUS D Referring Unavailable KACY, MCKINLEY Attending Unavailable HILLS, JUSTUS D Referring Unavailable KACY, MCKINLEY Attending Unavailable HILLS, JUSTUS D Referring Unavailable BLACKSTON, BRIAN Franks Attending Unavailable HILLS, JUSTUS D Referring Unavailable GILLMOR, KIMMIE Attending Unavailable GILLMOR, KIMMIE Referring Unavailable HILLS, JUSTUS D Attending Unavailable HILLS, JUSTUS D Referring Unavailable ObermElizabeth huddleston Unavailable Unavailable Hetou BDS, Salam Unavailable Suri DDS, Alfonzo Unavailable Kimmie Luz NP Unavailable [phone] MANPREET KELLEY Attending Unavailable IAN IQBAL Referring Unavailable IAN IQBAL Attending Unavailable DYLAN LITTLE Attending Unavailable MANPREET KELLEY Referring Unavailable Medications Current Medications Medication Drug Class(es) Dates Sig (Normalized) Sig (Original) 24 hr buPROPion hydrochloride 150 mg extended release oral tablet (2 sources) Aminoketone Start: 03-13-2023 take 150 mg by mouth once daily in the morning Bupropion Hcl Active 150 MG PO Every morning March 13, 2023 12:00am take 1 tablet by jose th every twenty-four hours in the morning buPROPion XL (WELLBUTRIN XL) 150 mg 24 h r tablet Take 1 tablet (150 mg total) by mouth in the morning. Active calcium carbonate 1250 mg or al tablet (20 sources) Start: 05-04-2024 calcium carbon ate (OS-YELENA 500) 500 mg calcium (1,250 mg) tablet 05/04/2024 Active Start: 05-04-2024 Oyster Shell C alcium 500 MG tablet 05/04/2024 Active carBAMazepine 200 mg oral tablet (20 sources) Mood Stabilizer take 1 tablet by mouth in the morning carBAMazepine (TEGretol) 200 MG tablet Take 200 mg by mouth in the morning and 200 mg before bedtime. Active take 1 tablet by jose th in the morning, then take 1 tablet by mouth every twelve hours at bedtime carBAMazepine XR (TEGretol XR) 200 mg 12 hr tablet Take 1 tablet (200 mg total) by mouth in the morning and 1 tablet (200 mg total) before bedtime. Active chlorhexidine gluconate 1.2 mg/ml mouthwash (8 sources) Start: 10-29-2022 End: 11-28-2022 take 15 mL by mouth twice daily chlorhexidine (Peridex) 0.12 % oral solution Indications: Poor oral hygiene Take 15 mL by mouth 2 times daily. 900 mL 10/29/2022 Active cholecalciferol 0.01 mg oral tablet (20 sources) Vitamin D Start: 05-04-2024 cholecalcifero l (VITAMIN D3) 400 unit tab 05/04/2024 Active Start: 05-04-2024 cholecalcifero l (Vitamin D-3) 10 MCG (400 UNIT) tablet 05/04/2024 Active diclofenac sodium 0.01 mg/mg topical gel (20 sources) Nonsteroidal Anti-inflammatory Drug Start: 11-12-2023 End: 01-06-2024 diclofenac sodium (Voltaren) 1 % gel Indications: Cervicalgia , Muscle spasm Apply to neck area three times/day 2 g 5 01/06/2024 Active Start: 06-14-2022 End: 11-12-2023 diclofenac (VOLTAREN) 1 % GE L topical gel Indications: Arthralgia of right temporomandibular joint Apply 2 g topically 2 times daily as needed. 50 g 06/14/2022 Active apply 1 g topically three times daily ARTHRITIS PAIN, DICLOFENAC, 1 % topical gel APPLY 1 GRAM up to THREE TIMES DAILY TO THE AFFECTED AREA(S) Active sodium fluoride 0.011 mg/mg toothpaste (19 sources) Start: 07-16-2022 Sodium Fluorid e (PreviDent [...] 2022 7:23am baclofen 10 mg oral tablet (15 sources) gamma-Aminobutyric Acid-ergic Agonist Start: 08-03-2022 End: [...] by mouth 3 times daily. 90 Tablet 06/14/2022 Active bupivacaine hydrochloride 2.5 mg/ml injectable solution (4 sources) Amide Local Anesthetic Start: 03-30-2024 End: 03-30-2024 bupivacaine (Marcaine) 0.25 % injection 4 mL Start: 03-30-2024 End: 03-30-2024 4 mL, Injection, Once PRN Pr ocedure, Starting on Sat03/30/24 at 1317, For 1 dose cyclobenzaprine hydrochloride 10 mg oral tablet (20 sources) Muscle Relaxant Start: 05-22-2022 End: 06-21-2022 take 10 mg by mouth at bedtime Cyclobenzaprine Discontinued 10 MG PO Bedtime June 11, 2022 11:00pm June 12, 2022 7:12pm Start: 05-03-2021 End: 05-25-2021 take 10 mg by mouth twice daily Cyclobenzaprine Discontinued 10 MG PO Twice daily May 03, 2021 12:00am May 25, 2021 7:46am take 1 tablet by jose three times daily as needed cyclobenzaprine (Flexeril) [...] Discontinued 300 MG PO Three times daily May 10, 2021 12:00am January 28, 2022 [...] 11, 2022 11:00pm August 03, 2022 7:56am 1 ml methylPREDNISolone acetate 40 mg/ml injection (6 sources) Corticosteroid Start: 03-30-2024 End: 03-30-2024 methylPREDNISolone acetate (DEPO-Medrol) injection 80 mg Start: 03-30-2024 End: 03-30-2024 80 mg, Injection, Once PRN P rocedure, Starting on Sat03/30/24 at 1317, For 1 dose Start: 01-16-2024 End: 01-16-2024 methylPREDNISolone acetate ( DEPO-Medrol) injection 80 mg Start: 01-16-2024 End: 01-16-2024 80 mg, Injection, Once PRN P rocedure, Starting on Sat01/16/24 at 1053, For 1 dose mirtazapine 15 mg oral tablet (7 sources) [...] sources) Indigestion; Translations: [Epigastric pain] 05-03-2021 Episodic Miscellaneous mental health disorders (2 sources) Anorexia nervosa; Translations: [Anorexia nervosa, unspecified] Onset: 08-07-2024 08-07-2024 Chronic Mood disorders (8 sources) Major depressive disorder, [...] mastication muscle] Episodic Other connective tissue disease (20 sources) Rotator cuff impingement syndrome; Translations: [Impingement syndrome of right shoulder] 11-29-2023 Episodic Other connective tissue disease (20 sources) Shoulder joint hypermobility; Translations: [Hypermobility syndrome] 11-29-2023 Episodic Other connective tissue disease (1 source) Myalgia, unspecified site; Translations: [Myalgia] Onset: 08-07-2024 Episodic Other male genital disorders (1 source) Pain in penis; Translations: [Other specified disorders of penis] Onset: 02-26-2023 02-26-2023 Chronic Other nervous system disorders (4 sources) Polyneuropathy, unspecified; Translations: [POLYNEUROPATHY UNSPECIFIED] Onset: 05-28-2022 Chronic Other nervous system disorders (20 sources) Carpal tunnel syndrome; Translations: [Carpal tunnel syndrome, unspecified upper limb] Onset: 09-17-2023 09-17-2023 Chronic Other nervous system disorders (20 sources) Disorder of right median nerve; Translations: [Other lesions of median nerve, right upper limb] Onset: 09-17-2023 09-17-2023 Chronic Other nervous system disorders (2 sources) Chronic pain; Translations: [Other chronic pain] 01-06-2024 Chronic Other nervous system disorders (1 source) Anesthesia of skin; Translations: [Anesthesia of skin] Onset: 07-03-2023 Episodic Other non-traumatic joint disorders (4 sources) Joint pain; Translations: [Pain in other joint] 06-05-2024 Episodic Other screening for suspected conditions (not mental disorders or infectious disease) (2 sources) Encounter for observation for other suspected diseases and conditions ruled out; Translations: [Encounter for observation for other suspected diseases and conditions ruled out] Onset: 06-14-2022 Episodic Residual codes; unclassified (1 source) Poor oral hygiene; Translations: [Other specified personal risk factors, not elsewhere classified] 10-29-2022 Episodic Residual codes; unclassified (1 source) Failed encounter; Translations: [No-show for appointment] 10-12-2024 Episodic Substance-related disorders (1 source) Nicotine dependence, [...] [CONTACT W/AND (SUSP) EXPOS COVID-19] Onset: 06-13-2022 Unclassified (1 source) No-show for appointment; Translations: [No-show for appointment] Onset: 10-12-2024 Unclassified (1 source) Pain in other joint; Translations: [Pain in other joint] Onset: 08-07-2024 Past or Other Problems Problem Classification Problem Date Documented Date Episodic/Chronic Disorders of teeth and jaw (20 sources) Pain of right temporomandibular joint; Translations: [Arthralgia of right temporomandibular joint] Onset: 06-04-2022 Episodic Other connective tissue disease (20 sources) Muscle pain; Translations: [Myalgia, other site] Onset: 11-12-2023 Episodic Other connective tissue disease (20 sources) Spasm; Translations: [Other muscle spasm] Onset: 11-12-2023 11-12-2023 Episodic Other nervous system disorders (20 sources) Paresthesia; Translations: [Paresthesia of skin] Onset: 09-17-2023 09-17-2023 Episodic Other nervous system disorders (20 sources) Anesthesia of skin; Translations: [Anesthesia of skin] Onset: 11-12-2023 11-12-2023 Episodic Other nervous system disorders (1 source) Numbness of tongue; Translations: [Anesthesia of skin] 07-03-2023 Episodic Other nutritional; endocrine; and metabolic disorders (4 sources) Anorexia; Translations: [ANOREXIA] Onset: 01-28-2022 Episodic Spondylosis; intervertebral disc disorders; other back problems (20 sources) Radiculopathy, cervical region; Translations: [Cervicalgia] Onset: 06-04-2022 Episodic Results Test Name Value Interpretation Reference Range Facility [facility] 08-07-2024 CNOV Office Visit (NPRC21 ) BETTY ROSENBERG ([id number]) 4 M Date Time Provider Department 08/07/24 10:30 AM MANPREET KELLEY NPRC21 During your visit today, we recorded the following information about you: Pulse Respiration Blood pressure Weight 94/minute 16/minute 107/88 66.7 kg Height 1.702 m Anuja Perez RN 08/07/2024 11:13 AM Signed Pt notes he has tried gabapentin in the past with benefit but this was discontinued by his PCP. Pt reported to RN feeling depressed, self reported anorexia, anxiety. NOBLE Garner Kelly, DO 08/07/2024 11:13 AM Signed [facility] August 07, 2024 Betty Rosenberg is a 23 year old currently lives with his 2 brothers He was referred by Ian Iqbal [address] [facility] [id number]. Chief complaint: Polyarthralgia SUBJECTIVE: Pt was referred by Dr. Iqbal, there are pending future labs. Pt reports he went to [place] to have the labs drawn. Pt reports his pain is in his bones.He reports pain in right knee, wrists. He has popping in his right leg. He also has right shoulder pain. He has had a bone density test at [place] and he was diagnosed with osteopenia. Spine Red Flag Betty Rosenberg has no red flag symptoms. Anesthesia: no previous surgeries Schizophrenia: N : N CHF: N Uncontrolled HTN: N Recent NV: N Arrythmias: N Afib: N Hyperthyroid: N Aortic Stenosis: N Liver Failure: N Increased ICP: N Average pain over the last 7 days:3-4-10 /10 Previous pain treatments: He has used Voltaren gel. He has been to PT. He had an injection into his right shoulder, this was a steroid injection, performed by Ortho. He limits NSAIDS bc of his eating issues Functional Limitations: He reports he feels like he is in the body of an 80 year old, feels shaky and weak at times Wellness: How would you describe your diet: he does not eat well, he reports anorexia, but no formal diagnosis How many days a week do you exercise: walking How many hours do you sleep a night: 6-10 hours, no sleep meds, he used to take Remeron Emotional Symptoms: include depression and anxiety The patient has loss of interest and energy The patient he reports SI, last time was Dec 2023, he was hospitalized then. 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 Allergies: Reviewed in the EMR Current Medications: Reviewed in the EMR Medical History: Reviewed in the EMR Surgical History: Reviewed in the EMR Psychiatric History: Anxiety Depression He used to see a psychiatrist He has been admitted about 12 times at [facility], for SI He has stopped all meds, it made his brain feel weird and ED Social History Tobacco Use Smoking status: Never Smokeless tobacco: Never Substance Use Topics Alcohol use: Not Currently Drug use: Yes Types: Marijuana Substance use: Tobacco: Reviewed in the EMR, denies Alcohol: he reports rare alcohol use Drug use: daily THC use, no relief of symptoms. Family History: Reviewed in the EMR ROS was positive for: knee pain All of the other systems reviewed were negative. OBJECTIVE: PHYSICAL EXAM: GENERAL APPEARANCE: Well appearing, well-hydrated, well nourished and alert SKIN: Head, neck, trunk, and extremities dry, intact and without lesions NECK: negative findings: no asymmetry or scars BACK: no tenderness to percussion or palpation, positive findings: paraspinal muscle spasm LUNGS: even and non-labored breathing, normal chest excursion HEART: Edema: No MUSCULOSKELETAL: Spine range of motion normal. Muscular strength intact. NEURO/PSYCH: cranial nerves 2-12 intact, speech normal, mental status intact IMAGING: Reviewed cervical spine imaging ASSESSMENT: ASSESSMENT/PLAN: 1. Myalgia - ICD9: 729.1, ICD10: M79.10 (primary diagnosis) 2. Pain in other joint - ICD9: 719.48, ICD10: M25.59 3. Anorexia nervosa (HCC) - ICD9: 307.1, ICD10: F50.00 PLAN: Further evaluation: follow up on Rheumatology consult, can schedule this closer to home, recc close follow up with his PCP Nutrition: N Therapies: placed new order for PT Sleep: N Worklessness: N Medications: continue with PRN Voltaren gel Interventions: N Infusions: pt is not a candidate for Ketamine at this time 9. Pain Psychology: referral to pain psychology, needs to re establish with a therapist close to home as well Review, Ask, Review: Y Follow-up: MENDOZA Kelley, I spent a total of 35 minutes on the date of the service which included preparing to see the patient, [id number] patient car (more content not included)... Normal [facility] Jojo 07-30-2024 CNPN Telephone (NIQ) BETTY ROSENBERG ([id number]) 4 M Date Time Provider Department 07/30/24 INA IQBAL NIKoby During your visit today, we recorded the following information about you: Case Calle 07/30/2024 3:08 PM Signed Pt called asking me to fax all lab orders to [facility] [phone] - Orders has been faxed to number provided. Allergies As of Date: 07/30/2024 (No Known Allergies) Date Reviewed: 06/03/2024 Reviewed by: Analia Tomas MA - Fully Assessed Reason for Visit: Orders [[id number]] Prescriptions as of 07/30/2024 - calcium carbonate (OS-YELENA 500) 500 mg calcium (1,250 mg) tablet - cholecalciferol (VITAMIN D3) 400 unit tab - ARTHRITIS PAIN, DICLOFENAC, 1 % topical gel APPLY 1 GRAM up to THREE TIMES DAILY TO THE AFFECTED AREA(S) Problem List As Of Date: 07/30/2024 (None) Encounter Status:Closed by CASE CALLE on 07/30/[address] [facility] Progress Noteson 06-11-2024 Punch Press Setter Authentication Interface Message Text [facility], pt is ready for tx. Pt is [...] until local anesthesia wears off. NV: RESTOTooth: 26 Surface: F Normal [facility] CNOVon 06-03-2024 CNOV Office Visit (SPNMMN ) BETTY ROSENBERG ([id number]) 4 M Date Time Provider Department 06/03/24 11:20 AM IAN IQBAL [facility] During your visit today, we recorded the following information about you: Pulse Respiration Blood pressure Weight 76/minute 20/minute 104/56 63.5 kg Height 1.702 m Ian Iqbal MD 06/05/2024 11:09 PM Signed SPINE CARE PATH NECK PAIN: CHRONIC INITIAL + polyarthralgia neck cracking felt orthopedics some shoulder hand pain 2018 sedentary lifestyle homeschooled had tooth pulled decreased tmj neck pain since 2018 also relates since having dental work SUBJECTIVE HISTORY OF PRESENT ILLNESS: Betty Rosenberg is a 23 year old male who presents with chronic neck pain. Other Issues Addressed at the Visit Today: decreased Precipitating Event: none PAIN EVALUATION 06/03/2024 1040 Pain Level: 8 Pain Location: Shoulder-Right Arms Description: Dull;Aching;Sharp Duration Amount of Time: 4 Duration Units: Years Frequency: Continuous Intervention/Comfort measure: Exercise;Relaxation;M edication;Cold;Heat;O ther: See comment injections 19 filling right shoulder pain#1 + cortisone shot 6 weeks ago helped neck pain cracking neurology trigger point injections kitchen aid shoulder pain right to neck 3/10 lifting arm movement pops out PT neck pain intermittent sharp deep rates pain at 10 at worse 1-2/10 intermittent + right hip pain right side feelsmore overuse no clear dermatomal pattern emg-cts vs no neck cream voltaren ibuprofen, PT for shoulder some help told had osteopenia Prior Therapy: Analgesics and Oral steroids PT for shoulder seems steroids for shoulder , muscles helped Litigation: No Workers' Compensation: No xr cervical 2023 report only Vertebral body heights, alignment, and densities are normal. No prevertebral soft tissue thickening. No degenerative changes. Base of the dens and lateral masses are appropriately aligned. No foraminal narrowing. No acute fracture. IMPRESSION: Normal cervical spine radiographs YELLOW AND BLUE FLAGS YES-Avoiding Activity (for Fear of Pain) YES-Depression or Anxiety Disorders No-Social Problems No-Financial Disincentives Patient Entered Questionnaires PROMIS Score Percentiles Percentiles provide an indication of how the patient's score ranks in relation to the general population. Higher percentile rankings indicate better function/quality of life. 50th percentile is the average of the general population and indicates half of respondents had a worse score. Depression Screening: PHQ-9 Self-Harm (Item 9) response options: 0 Not at all 1 Several days 2 More than half the days 3 Nearly every day PHQ-9 Levels: 0-4 No - mild depression 5-9 Mild depression 10-14 Moderate depression 15-19 Moderately severe depression 20-27 Severe depression There is no problem list on file for this patient. No past medical history on file. No past surgical history on file. Social History Tobacco Use Smoking status: Never Smokeless tobacco: Never Substance Use Topics Alcohol use: Not Currently Drug use: Yes Types: Marijuana polyarthralgia chronic shoulder pain marijuana nkda No family history on file. ALLERGIES No Known Allergies CURRENT MEDICATIONS: calcium carbonate (OS-YELENA 500) 500 mg calcium (1,250 mg) tablet cholecalciferol (VITAMIN D3) 400 unit tab ARTHRITIS PAIN, DICLOFENAC, 1 % topical gel APPLY 1 GRAM up to THREE TIMES DAILY TO THE AFFECTED AREA(S) REVIEW OF SYSTEMS: GENERAL: Denies fever, chills malaise and weight loss. HEENT: No recent change in vision or hearing. CARDIOVASCULAR: Denies chest pain, history of A-fib, valvular disease, or pacemaker/ICD. RESPIRATORY: Denies SOB, sputum production, and hemoptysis. GI: Denies GI ulcers, inflammatory disease, or liver disease. OBJECTIVE PHYSICAL EXAM: BP 104/56 Pulse 76 Resp 20 Ht 170.2 cm (5' 7 ) Wt 63.5 kg (140 lb) BMI 21.93 kg/m? GENERAL APPEARANCE: Well nourished, well developed, and no apparent distress. NEURO PSYCH: Patient oriented to person, place, and time. Mood pleasant. Benign affect. MUSCULOSKELETAL VISUAL INSPECTION CERVICAL: Kyphosis THORACIC:kyphosis LUMBAR: wnl PALPATION: SPINOUS PROCESS: No pain. PARASPINALS: Pain.diffuse cervical,thoracic ,lumbar SPINE ROM: LUMBAR ROM: flexion dec extension neg CERVICAL ROM: Full ROM Without Pain MUSCLE BULK: Normal and symmetrical in the upper AND lower extremities. MUSCLE TONE: Normal. MOTOR: 5/5 in all muscle groups. SENSORY: Normal sensory exam GAIT: Normal. REFLEXES: +2 to bilateral U/L extremities. PROPRIOCEPTION: Normal. LONG TRACT SIGNS: No clonus. No Hoffmans. BABINSKI: Downward response STRAIGHT LEG TEST: Ipsilateral: Negative. PERIPHERAL JOINT ROM: (more content not included)... Normal [facility] Progress Noteson 04-09-2024 Punch Press Setter Authentication Interface Message Text ----- March at 4:15:06 PM ----- ----- Provider: [id number] [place] -- Clinic: [place] ----- COMPOSITE [facility] Patient is scheduled for Gnosticism on tooth #2 ODLB and 4 surface MOD. Reviewed Medical History. Pt exhibited the following conditions: No significant medical history Patient is ready for treatment. Topical Benzocaine gel applied at the injection site for 2 minutes. Administered 1 carpules of Lidocaine, 2% with Epinephrine 1:100,000,. Cotton roll isolation achieved. Decay/existing lutheran removed, cavity prepared. Selectively etched enamel with 37% phosphoric acid, rinsed, and blot dried. OptiBond delaney applied and light-cured. Condensed packable composite shade A2 in light cured increments using Toffelmaire matrix band retainer and wedge. Finished with finishing burs, checked occlusion, verified proximal contacts and lutheran was polished. Rinsed and suctioned intraorally, advised patient to not eat until local anesthesia wears off. POST OPERATIVE Bitewing (single) RADIOGRAPH TAKEN. NOTE: Post camryn instructions given to patient,CAMRYN DONE BY NESTOR Boone Next Visit: Restorative. ----- Signed on Wednesday, April 10, 2024 at 2:34:52 PM ----- ----- Provider: [id number] Tessa Troncoso DDS -- Clinic: [place] ----- Normal [facility] No Panel Informationon 03-30 Kimmie Luz NP 04/01/2024 1:24 AM Trigger Point Injection: right cervical paraspinals, left cervical paraspinals, right semispinalis capitis, left semispinalis capitis, right upper trapezius, left upper trapezius on 03/30/2024 1:17 PM Indications: myalgia Details: 25 G needle Medications: 4 mL bupivacaine 0.25 %; 80 mg methylPREDNISolone acetate 40 MG/ML Procedure, treatment alternatives, risks and benefits explained, specific risks discussed. Consent was given by the patient. [facility] Telephone Encounteron 2024 Punch Press Setter Authentication Interface Message Text Patient is returning a missed call from the clinic about his crown. Pls call pt @ [phone] Thank you I sent a message ton [facility] via [employer] Normal [facility] Telephone Encounteron 2023 Punch Press Setter Authentication Interface Message Text Pt calling again wanting to know if prior auth was sent to pt insurance company for [place]. Pt called office 02/19/24 and has not heard back yet. Pt can be reached at [phone]. Message sent to [facility] 03/17/24 at 152 pm Normal [facility] Telephone Encounteron 2023 Punch Press Setter Authentication Interface Message Text Pt calling in because they recentley spoke to their insurance company asking about the prior auth for a crown on tooth #3, pt says that tooth #2 is the one that needs the crown. He stated that the insurance never recieved please resend or contact pt to resolve issue so they can schedule with office. Pt ph:[phone] Normal [facility] Progress Noteson 01-23-2024 Punch Press Setter Authentication Interface Message Text RM, Pt is ready for tx. Pt presented as a [place] with pain in the ___ side of his mouth. Radiograph taken today: PA X-ray. *Pt didn't want to do anything today, so only meds were considered. *Pt needs surgical extraction, so a referral to OS was made ready, and only meds were considered. *Pt didn't have insurance, and his case is not urgent, so only meds were considered. Discussed the medical necessity of the problem with the pt. Instructions given to pt. Pt understood the situation and is okay with medications for today. Pt will come back should things get worse. [place]. EXAM Normal [facility] Punch Press Setter Authentication Interface Message Text ----- January at 4:43:21 PM ----- ----- Provider: [id number] Resident Lianne -- Clinic: [place] ----- LIMITED EXAM Patient presents for Scheduled appointment with a CC of Sensitivity in the UR area of their mouth. Reviewed patient's medical history. Patient has a history of: No significant medical history. No contraindications, patient is ready for treatment. Clinical exam was completed. Clinical Exam Finding(s): Tooth #3 needs crown on it, previous RCT and patient feels sensitivity in this area. Radiographs taken today were: 2 PAs Discussed the medical necessity of the problem with the patient. Patient consented to treatment today. NOTE: Prior sent today for the crown Next Visit: [place]-Prep. ----- Signed on January at 9:10:19 PM ----- ----- Provider: [id number] - Christian Troncoso DDS -- Clinic: [place] ----- Normal [facility] ALL C REACTIVE PROTEINon CRP [Mass/Vol] mg/L NINF - 0.50 mg/dL [facility] eflow [facility] CKon 01-08-2024 CK [Catalytic activity/Vol] 95 U/L 39 - 308 U/L [facility] eflow No Panel Informationon 01-07 [facility] Progress Noteson 11-22-2023 Punch Press Setter Authentication Interface Message Text Normal [facility] Punch Press Setter Authentication Interface Message Text ----- Wednesday, November 22, 2023 at 1:34:35 PM ----- ----- Provider: [id number] - Resident Allan -- Clinic: [place] ----- LIMITED EXAM Patient presents for Emergency appointment with a CC of fracture of the mesial lutheran tooth # 10 area of their mouth. [...] patient. Patient consented to treatment today. COMPOSITE [facility] Patient is scheduled for Gnosticism on tooth #10 surface MLF. Reviewed Medical History. Pt exhibited the following conditions: No significant medical history Patient is ready for treatment. Topical Benzocaine gel applied at the injection site for 2 minutes. Administered 1 carpules of . cotton roll isolation achieved. Decay/existing lutheran removed, cavity prepared. Selectively etched enamel with 37% phosphoric acid, rinsed, and blot dried. Xeno IV delaney applied and light-cured. Condensed packable composite shade A2 in light cured increments using Mylar strip and wedge. Finished with finishing burs, checked occlusion, verified proximal contacts and lutheran was polished. Rinsed and suctioned intraorally, advised patient to not eat until local anesthesia wears off. POST OPERATIVE Periapical (single) RADIOGRAPH TAKEN. Next Visit: Extraction (single) ----- Signed on Wednesday, November 22, 2023 at 1:53:10 PM ----- ----- Provider: [id number] - Christian Troncoso DDS -- Clinic: [place] ----- Normal [facility] Progress Noteson 07-24-2023 Punch Press Setter Authentication Interface Message Text ----- Monday, July 24, 2023 at 4:26:32 PM ----- ----- Provider: [id number] Resident Michael -- Clinic: [place] ----- COMPOSITE [facility] Patient is scheduled for Gnosticism on tooth #10-DL and 11-MDL. Reviewed Medical History. Pt exhibited the following conditions: No significant medical history Patient is ready for treatment. Topical Benzocaine gel applied at the injection site for 2 minutes. Administered 1 carpules of Lidocaine, 2% with Epinephrine 1:100,000,. Isolation achieved. Decay/existing lutheran removed, cavity prepared. Selectively etched enamel with 37% phosphoric acid, rinsed, and blot dried. OptiBond delaney applied and light-cured. Condensed packable composite shade a3 in light cured increments using Mylar strip and wedge. Finished with finishing burs, checked occlusion, verified proximal contacts and lutheran was polished. Rinsed and suctioned intraorally, advised patient to not eat until local anesthesia wears off. POST OPERATIVE Periapical (single) RADIOGRAPH TAKEN. NOTE: In the post op x ray I saw that mesial lutheran on # 10 was fractured. It has to be replace in his next appointment Next Visit: Restorative ----- Signed on July at 8:19:57 AM ----- ----- Provider: Michael Troncoso DDS -- Clinic: [place] ----- Normal [facility] XR SPINE CERVICAL 4 OR 5 [...] Chu Adkins on 07/05/2023 4:09 PM Normal [facility] Cholesterol [Mass/volume] in Serum or PlasmaOrdered By: Shubham Ding on 03-10-2023 Cholesterol [Mass/Vol] 117 mg/dL Low 140-200 [facility] Comment on above: Chol less than 200 m g/dl low riskChol 201-239 mg/dl borderline riskChol 240 mg/dl and greater high risk Result Comment: Chol less than 200 mg/dl low risk Chol 201-239 mg/dl borderline risk Chol 240 mg/dl and greater high risk Performed By: #### V [id number], LIPID, TSH3 wRFLX #### [facility] [address] Cholesterol in LDL Calc [Mas s/Vol]Ordered By: Shubham Ding on 03-10-2023 Cholesterol in LDL [Mass/Vol] 64 mg/dL 0-100 [facility] Comment on above: LDL ATP III CLASSIFI CATIONLDL less than 100 mg/dL OptimalLDL 100-129 mg/dL Near or above optimalLDL 130-159 mg/dL Borderline highLDL 160-189 mg/dL HighLDL greater than 189 mg/dL Very high Cholesterol in VLDL Calc [Ma ss/Vol]Ordered By: Shubham Ding on 03-10-2023 Cholesterol in VLDL [Mass/Vol] 8 mg/dL [facility] Lipid Panelon 03-10-2023 LDL Cholesterol,Calculated 64 mg/dL Normal 0-100 [facility] Comment on above: Result Comment: LDL ATP III CLASSIFICATION LDL less than 100 mg/dL Optimal LDL 100-129 mg/dL Near or above optimal LDL 130-159 mg/dL Borderline high LDL 160-189 mg/dL High LDL greater than 189 mg/dL Very high Performed By: #### V [id number], LIPID, TSH3 wRFLX #### [facility] [address] Triglyceride w/Reflex 42 mg/dL Normal 0-149 [facility] Comment on above: Result Comment: TRIG ATP III CLASSIFICATION TRIG less than 150 mg/dL Normal TRIG 150-199 mg/dL Borderline high TRIG 200-500 mg/dL High TRIG greater than 500 mg/dL Very high Standard traceable to the Center for Disease Conrtrol and Prevention (CDC) test method. Performed By: #### V [id number], LIPID, TSH3 wRFLX #### [facility] [address] VLDL CHOLESTEROL 8 mg/dL Normal [facility] Comment on above: Performed By: #### V [id number], LIPID, TSH3 wRFLX #### [facility] [address] Serum or plasma high density lipoprotein (HDL) cholesterol measurementOrdered By: Shubham Ding on 03-10-2023 Cholesterol in HDL [Mass/Vol] 45 mg/dL Normal 23-92 [facility] Comment on above: HDL CHOL ATP-III CLA SSIFICATION Cardiovascular RiskHDL > or equal to 60 mg/dL LOWHDL < 40 mg/dL HIGH Result Comment: HDL CHOL ATP-III CLASSIFICATION Cardiovascular Risk HDL > or equal to 60 mg/dL LOW HDL < 40 mg/dL HIGH Performed By: #### V [id number], LIPID, TSH3 wRFLX #### [facility] [address] Serum or plasma total choles terol/high density lipoprotein (HDL) cholesterol mass ratOrdered By: Shubham Ding on 03-10-2023 Cholesterol.total/Abi sterol in HDL [Mass ratio] 2.6 {ratio} Normal <5.0 [facility] Comment on above: Performed By: #### V [id number], LIPID, TSH3 wRFLX #### [facility] [address] Thyroid Stim Hormone w/Rflxo n 03-10-2023 Thyroid Stim Hormone w/Rflx 0.83 u[iU]/mL Normal 0.45-5.33 [facility] Comment on above: Performed By: #### V [id number], LIPID, TSH3 wRFLX #### [facility] [address] Thyrotropin [Units/volume] i n Serum or PlasmaOrdered By: Shubham Ding on 03-10-2023 TSH Qn 0.83 m[IU]/L 0.45-5.33 [facility] Triglyceride [Mass/volume] i n Serum or PlasmaOrdered By: Shubham Ding on 03-10-2023 Triglyceride [Mass/Vol] 42 mg/dL 0-149 [facility] Comment on above: TRIG ATP III CLASSIF ICATIONTRIG less than 150 mg/dL NormalTRIG 150-199 mg/dL Borderline highTRIG 200-500 mg/dL High TRIG greater than 500 mg/dL Very highStandard traceable to the Center for Disease Conrtrol and Prevention (CDC) test method. Vitamin D 25 Hydroxy Totalon 03-10-2023 Vitamin D 25 Hydroxy Total 44.6 ng/mL Normal 30-100 [facility] Comment on above: Result Comment: GREY MIN D STATUS 25(OH)VITAMIN D RANGE (ng/mL) Deficient <20 Insufficient 20 to <30 Sufficient 30 to 100 Reference: Richy MF,lA LUTZ, Yvonne BUCHANAN, et al. Evaluation,treatment, and prevention of vitamin D deficiency; an Endocrine Society clinical practice guideline. JCEM. 2010; 96(7):1911-30. PERFORMED BY: [place] [id number] [employer] EXECUTIVE DIRECTOR HANNY WEAVER M.D. Performed By: #### V [id number], LIPID, TSH3 wRFLX #### [place] [id number] [facility] Vitamin D+Metabolites [Mass/ volume] in Serum or PlasmaOrdered By: Shubham Ding on 03-10-2023 Vitamin D+Metabolites [Mass/Vol] 44.6 ng/mL 30-100 [facility] Comment on above: VITAMIN D STATUS 25( [place])VITAMIN D RANGE (ng/mL) Deficient <20 Insufficient 20 to <30Sufficient 30 to 100Reference: Richy MF,Al NC, Yvonne BUCHANAN, et al. Evaluation,treatment, and prevention of vitamin D deficiency; an Endocrine Society clinical practice guideline. JCEM. 2010; 96(7):1911-30. ECG 12 lead ECGon 03-09-2023 ECG 12 lead ECG [facility] Main [place] [address] [place] [address] Electrocardiograph Report Signed Patient: Betty Rosenberg MR#: [id number] 140 : 2000 Acct:[id number] Age/Sex: 22 / M ADM Date: 03/09/23 Loc: Room: [address] [place] [address] Type: ADM IN Attending Dr: Shubham Ding [...] Aiden Roy MD 03/10/23 1146 Normal [facility] Cholesterol [Mass/volume] in Serum or PlasmaOrdered By: Shubham Ding on 09-29-2022 Cholesterol [Mass/Vol] 147 mg/dL 140-200 [facility] Comment on above: Chol less than 200 m g/dl low riskChol 201-239 mg/dl borderline riskChol 240 mg/dl and greater high risk Cholesterol in LDL Calc [Mas s/Vol]Ordered By: Shubham Ding on 09-29-2022 Cholesterol in LDL [Mass/Vol] 86 mg/dL 0-100 [facility] Comment on above: LDL ATP III CLASSIFI CATIONLDL less than 100 mg/dL OptimalLDL 100-129 mg/dL Near or above optimalLDL 130-159 mg/dL Borderline highLDL 160-189 mg/dL HighLDL greater than 189 mg/dL Very high Cholesterol in VLDL Calc [Ma ss/Vol]Ordered By: Shubham Ding on 09-29-2022 Cholesterol in VLDL [Mass/Vol] 12 mg/dL [facility] Serum or plasma high density lipoprotein (HDL) cholesterol measurementOrdered By: Shubham Ding on 09-29-2022 Cholesterol in HDL [Mass/Vol] 49 mg/dL 23-92 [facility] Comment on above: HDL CHOL ATP-III CLA SSIFICATION Cardiovascular RiskHDL > or equal to 60 mg/dL LOWHDL < 40 mg/dL HIGH Serum or plasma total choles terol/high density lipoprotein (HDL) cholesterol mass ratOrdered By: Shubham Ding on 09-29-2022 Cholesterol.total/Abi sterol in HDL [Mass ratio] 3.0 {ratio} <5.0 [facility] Thyrotropin [Units/volume] i n Serum or PlasmaOrdered By: Shubham Ding on 09-29-2022 TSH Qn 0.75 m[IU]/L 0.45-5.33 [facility] Triglyceride [Mass/volume] i n Serum or PlasmaOrdered By: Shubham Ding on 09-29-2022 Triglyceride [Mass/Vol] 62 mg/dL 0-149 [facility] Comment on above: TRIG ATP III CLASSIF ICATIONTRIG less than 150 mg/dL NormalTRIG 150-199 mg/dL Borderline highTRIG 200-500 mg/dL High TRIG greater than 500 mg/dL Very highStandard traceable to the Center for Disease Conrtrol and Prevention (CDC) test method. Vitamin D+Metabolites [Mass/ volume] in Serum or PlasmaOrdered By: Shubham Ding on 09-29-2022 Vitamin D+Metabolites [Mass/Vol] 57.5 ng/mL 30-100 [facility] Comment on above: VITAMIN D STATUS 25( [place])VITAMIN D RANGE (ng/mL) Deficient <20 Insufficient 20 to <30Sufficient 30 to 100Reference: Richy MF,Al LUTZ, Yvonne BUCHANAN, et al. Evaluation,treatment, and prevention of vitamin D deficiency; an Endocrine Society clinical practice guideline. JCEM. 2010; 96(7):1911-30. Cholesterol [Mass/volume] in Serum or PlasmaOrdered By: Shubham Ding on 08-04-2022 Cholesterol [Mass/Vol] 133 mg/dL 140-200 [facility] Comment on above: Chol less than 200 m g/dl low riskChol 201-239 mg/dl borderline riskChol 240 mg/dl and greater high risk Cholesterol in LDL Calc [Mas s/Vol]Ordered By: Shubham Ding on 08-04-2022 Cholesterol in LDL [Mass/Vol] 69 mg/dL 0-100 [facility] Comment on above: LDL ATP III CLASSIFI CATIONLDL less than 100 mg/dL OptimalLDL 100-129 mg/dL Near or above optimalLDL 130-159 mg/dL Borderline highLDL 160-189 mg/dL HighLDL greater than 189 mg/dL Very high Cholesterol in VLDL Calc [Ma ss/Vol]Ordered By: Shubham Ding on 08-04-2022 Cholesterol in VLDL [Mass/Vol] 17 mg/dL [facility] Serum or plasma high density lipoprotein (HDL) cholesterol measurementOrdered By: Shubham Ding on 08-04-2022 Cholesterol in HDL [Mass/Vol] 47 mg/dL 29-71 [facility] Comment on above: HDL CHOL ATP-III CLA SSIFICATION Cardiovascular RiskHDL > or equal to 60 mg/dL LOWHDL < 40 mg/dL HIGH Serum or plasma total choles terol/high density lipoprotein (HDL) cholesterol mass ratOrdered By: Shubham Ding on 08-04-2022 Cholesterol.total/Abi sterol in HDL [Mass ratio] 2.8 {ratio} <5.0 [facility] Thyrotropin [Units/volume] i n Serum or PlasmaOrdered By: Shubham Ding on 08-04-2022 TSH Qn 0.91 m[IU]/L 0.45-5.33 [facility] Triglyceride [Mass/volume] i n Serum or PlasmaOrdered By: Shubham Ding on 08-04-2022 Triglyceride [Mass/Vol] 86 mg/dL 0-149 [facility] Comment on above: TRIG ATP III CLASSIF ICATIONTRIG less than 150 mg/dL NormalTRIG 150-199 mg/dL Borderline highTRIG 200-500 mg/dL High TRIG greater than 500 mg/dL Very highStandard traceable to the Center for Disease Conrtrol and Prevention (CDC) test method. Vitamin D+Metabolites [Mass/ volume] in Serum or PlasmaOrdered By: Shubham Ding on 08-04-2022 Vitamin D+Metabolites [Mass/Vol] 46.3 ng/mL 30-100 [facility] Comment on above: VITAMIN D STATUS 25( [place])VITAMIN D RANGE (ng/mL) Deficient <20 Insufficient 20 to <30Sufficient 30 to 100Reference: Richy BOBBY,Al NC, Yvonne BUCHANAN, et al. Evaluation,treatment, and prevention of vitamin D deficiency; an Endocrine Society clinical practice guideline. JCEM. 2010; 96(7):1911-30. Alanine aminotransferase [En zymatic activity/volume] in Serum or PlasmaOrdered By: Christiano Phelps on 08-03-2022 ALT [Catalytic activity/Vol] 26 U/L 7-52 [facility] Albumin [Mass/volume] in Ser um or Plasma by Bromocresol green (BCG) dye binding methoOrdered By: Christiano Phelps on 08-03-2022 Albumin BCG dye [Mass/Vol] 3.9 g/dL 3.5-5.7 [facility] Alkaline phosphatase [Enzyma tic activity/volume] in Serum or PlasmaOrdered By: Christiano Phelps on 08-03-2022 ALP [Catalytic activity/Vol] 64 U/L 34-104 [facility] Amphetamine Screen Ql (U)Ord ered By: Christiano Phelps on 08-03-2022 Amphetamines Ql (U) Negative Negative [facility] Aspartate aminotransferase [ Enzymatic activity/volume] in Serum or PlasmaOrdered By: Christiano Phelps on 08-03-2022 AST [Catalytic activity/Vol] 19 U/L 13-39 [facility] Barbiturates [Presence] in U rine by Screen methodOrdered By: Christiano Phelps on 08-03-2022 Barbiturates Screen Ql (U) Negative Negative [facility] Basophils Auto (Bld) [#/Vol] Ordered By: Christiano Phelps on 08-03-2022 Basophils (Bld) [#/Vol] 0.0 10*3/uL 0.0-0.2 [facility] Basophils/100 WBC Auto (Bld) Ordered By: Christiano Phelps on 08-03-2022 Basophils/100 WBC (Bld) 0.3 % . [facility] Benzodiazepines Screen Ql (U )Ordered By: Christiano Phelps on 08-03-2022 Benzodiazepines Ql (U) Negative Negative [facility] Benzoylecgonine [Presence] i n Urine by Screen methodOrdered By: Christiano Phelps on 08-03-2022 Benzoylecgonine Screen Ql (U) Negative Negative [facility] Bilirubin Test strip Ql (U)O rdered By: Christiano Phelps on 08-03-2022 Bilirubin Ql (U) Negative Negative [facility] Bilirubin.total [Mass/volume ] in Serum or PlasmaOrdered By: Christiano Phelps on 08-03-2022 Bilirubin [Mass/Vol] 0.4 mg/dL 0.3-1.0 [facility] Calcium [Mass/volume] in Ser um or PlasmaOrdered By: Christiano Phelps on 08-03-2022 Calcium [Mass/Vol] 8.9 mg/dL 8.6-10.3 [facility] Cannabinoids [Presence] in U rine by Screen methodOrdered By: Christiano Phelps on 08-03-2022 Cannabinoids Screen Ql (U) Positive Negative [facility] Comment on above: These are unconfirme d results and should not be used for legal purposes. Drug Cut-Off Concentration: AMPH 1000 ng/mL DEANGELO 200 ng/mL BEATRIZ 200 ng/mL COCM 300 ng/mL OP 300 ng/mL PCP 25 ng/mL THC 20 ng/mL Carbon dioxide, total [Moles /volume] in Serum or PlasmaOrdered By: Christiano Phelps on 08-03-2022 CO2 [Moles/Vol] 32.6 mmol/L 21.0-31.0 [facility] Chloride [Moles/volume] in S messi or PlasmaOrdered By: Christiano Phelps on 08-03-2022 Chloride [Moles/Vol] 104 mmol/L 98-107 [facility] Color Auto (U)Ordered By: Radames red Mattie on 08-03-2022 Color (U) Yellow Yellow [facility] Creatinine [Mass/volume] in Serum or PlasmaOrdered By: Christiano Phelps on 08-03-2022 Creatinine [Mass/Vol] 0.77 mg/dL 0.70-1.30 [facility] Eosinophils Auto (Bld) [#/Vo l]Ordered By: Christiano Phelps on 08-03-2022 Eosinophils (Bld) [#/Vol] 0.1 10*3/uL 0.0-0.45 [facility] Eosinophils/100 WBC Auto (Bl d)Ordered By: Christiano Phelps on 08-03-2022 Eosinophils/100 WBC (Bld) 1.7 % . [facility] Erythrocyte distribution wid th Auto (RBC) [Ratio]Ordered By: Christiano Phelps on 08-03-2022 Erythrocyte distribution width (RBC) [Ratio] 13.5 % 12.0-14.8 [facility] Ethanol [Mass/volume] in Ser um or PlasmaOrdered By: Christiano Phelps on 08-03-2022 Ethanol [Mass/Vol] mg/dL [facility] Ethanol [Mass/Vol] TNP [facility] Comment on above: Test not performed Globulin Calc (S) [Mass/Vol] Ordered By: Christiano Phelps on 08-03-2022 Globulin (S) [Mass/Vol] 2.7 g/dL [facility] Glucose [Mass/volume] in Ser um or PlasmaOrdered By: Christiano Phelps on 08-03-2022 Glucose [Mass/Vol] 86 mg/dL 70-100 [facility] Comment on above: ADA recommended refe rence rangeRandom Glucose Reference Range is dependent on time and content of last meal. Glucose of more than 200 mg/dL in a nonstressed, ambulatory subject supports the diagnosis of Diabetes Mellitus. Hematocrit Auto (Bld) [Volum e fraction]Ordered By: Christiano Phelps on 08-03-2022 Hematocrit (Bld) [Volume fraction] 43.8 % 38.8-50.0 [facility] Hemoglobin [Mass/volume] in BloodOrdered By: Christiano Phelps on 08-03-2022 Hemoglobin (Bld) [Mass/Vol] 14.6 g/dL 13.0-17.0 [facility] Ketones Auto test strip (U) [Mass/Vol]Ordered By: Christiano Phelps on 08-03-2022 Ketones (U) [Mass/Vol] Trace Negative [facility] Leukocytes [#/volume] correc michael for nucleated erythrocytes in Blood by Automated counOrdered By: Christiano Phelps on 08-03-2022 WBC corrected for nucl RBC Auto (Bld) [#/Vol] 5.2 10*3/uL 4.1-10.5 [facility] Lymphocytes Auto (Bld) [#/Vo l]Ordered By: Christiano Phelps on 08-03-2022 Lymphocytes (Bld) [#/Vol] 1.2 10*3/uL 1.00-4.8 [facility] Lymphocytes/100 WBC Auto (Bl d)Ordered By: Christiano Phelps on 08-03-2022 Lymphocytes/100 WBC (Bld) 23.9 % . [facility] MCH Auto (RBC) [Entitic mass ]Ordered By: Christiano Phelps on 08-03-2022 MCH (RBC) [Entitic mass] 28.8 pg 27.5-35.2 [facility] MCHC Auto (RBC) [Mass/Vol]Or dered By: Christiano Phelps on 08-03-2022 MCHC (RBC) [Mass/Vol] 33.5 g/dL 32.5-35.6 [facility] MCV Auto (RBC) [Entitic vol] Ordered By: Christiano Phelps on 08-03-2022 MCV (RBC) [Entitic vol] 86.2 fL 83.5-101 [facility] Monocyte distribution width [Entitic volume] in Blood by AutomatedOrdered By: Christiano Phelps on 08-03-2022 Monocyte distribution width Auto (Bld) [Entitic vol] 18.07 % 0.00-20.00 [facility] Monocytes Auto (Bld) [#/Vol] Ordered By: Christiano Phelps on 08-03-2022 Monocytes (Bld) [#/Vol] 0.4 10*3/uL 0.0-0.8 [facility] Monocytes/100 WBC Auto (Bld) Ordered By: Christiano Phelps on 08-03-2022 Monocytes/100 WBC (Bld) 8.3 % . [facility] Neutrophils Auto (Bld) [#/Vo l]Ordered By: Christiano Phelps on 08-03-2022 Neutrophils (Bld) [#/Vol] 3.4 10*3/uL 1.8-7.7 [facility] Neutrophils/100 WBC Auto (Bl d)Ordered By: Christiano Phelps on 08-03-2022 Neutrophils/100 WBC (Bld) 65.8 % . [facility] Nitrite Test strip Ql (U)Ord ered By: Christiano Phelps on 08-03-2022 Nitrite Ql (U) Negative Negative [facility] No Panel InformationOrdered By: Christiano Phelps on 08-03-2022 Estimated GFR (CKD-EPI) > 60.0 mL/Min [facility] Creatinine Clearance (Chem 144.27 [facility] Nucleated erythrocytes [Pres ence] in Blood by Automated countOrdered By: Christiano Phelps on 08-03-2022 Nucleated RBC Auto Ql (Bld) 0.2 /100{WBC} 0-0.5 [facility] Opiates [Presence] in Urine by Screen methodOrdered By: Christiano Phelps on 08-03-2022 Opiates Screen Ql (U) Negative Negative [facility] Phencyclidine Screen Ql (U)O rdered By: Christiano Phelps on 08-03-2022 Phencyclidine Ql (U) Negative Negative [facility] Platelet mean volume Auto (B ld) [Entitic vol]Ordered By: Christiano Phelps on 08-03-2022 Platelet mean volume (Bld) [Entitic vol] 8.8 fL 6.6-10.1 [facility] Platelets Auto (Bld) [#/Vol] Ordered By: Christiano Phelps on 08-03-2022 Platelets (Bld) [#/Vol] 201 10*3/uL 150-450 [facility] Potassium [Moles/volume] in Serum or PlasmaOrdered By: Christiano Phelps on 08-03-2022 Potassium [Moles/Vol] 4.0 mmol/L 3.5-5.1 [facility] Protein Auto test strip (U) [Mass/Vol]Ordered By: Christiano Phelps on 08-03-2022 Protein (U) [Mass/Vol] Negative Negative [facility] Protein [Mass/volume] in Ser um or PlasmaOrdered By: Christiano Phelps on 08-03-2022 Protein [Mass/Vol] 6.6 g/dL 6.4-8.9 [facility] RBC Auto (Bld) [#/Vol]Ordere d By: Christiano Phelps on 08-03-2022 RBC (Bld) [#/Vol] 5.08 10*6/uL 3.90-5.60 [facility] Serum or plasma albumin/glob ulin mass ratioOrdered By: Christiano Phelps on 08-03-2022 Albumin/Globulin [Mass ratio] 1.4 {ratio} [facility] Serum or plasma anion gap de terminationOrdered By: Christiano Phelps on 08-03-2022 Anion gap [Moles/Vol] 6.4 mmol/L 6.0-15.0 [facility] Sodium [Moles/volume] in Ser um or PlasmaOrdered By: Christiano Phelps on 08-03-2022 Sodium [Moles/Vol] 139 mmol/L 136-145 [facility] Specific gravity Auto test s trip (U) [Rel density]Ordered By: Christiano Phelps on 08-03-2022 Specific gravity (U) [Rel density] 1.023 1.001-1.030 [facility] Urea nitrogen [Mass/volume] in Serum or PlasmaOrdered By: Christiano Phelps on 08-03-2022 Urea nitrogen [Mass/Vol] 12 mg/dL 7-25 [facility] Urine clarity by refractomet ry automatedOrdered By: Christiano Phelps on 08-03-2022 Clarity Refractometry automated (U) Clear Clear [facility] Urine glucose measurement by automated test strip (mass/volume)Ordered By: Christiano Phelps on 08-03-2022 Glucose Auto test strip (U) [Mass/Vol] Normal mg/dL Normal [facility] Urine hemoglobin detection b y automated test stripOrdered By: Christiano Phelps on 08-03-2022 Hemoglobin Auto test strip Ql (U) Negative Negative [facility] Urine leukocyte esterase det ection by automated test stripOrdered By: Christiano hPelps on 08-03-2022 Leukocyte esterase Auto test strip Ql (U) Negative Negative [facility] Urobilinogen Auto test strip (U) [Mass/Vol]Ordered By: Christiano Phelps on 08-03-2022 Urobilinogen (U) [Mass/Vol] Normal mg/dL Normal [facility] WBC Auto (Bld) [#/Vol]Ordere d By: Christiano Phelps on 08-03-2022 WBC (Bld) [#/Vol] 5.2 10*3/uL 4.1-10.5 [facility] pH Auto test strip (U)Ordere d By: Christiano Phelps on 08-03-2022 pH (U) 7.5 [pH] 5.0-9.0 [facility] Cholesterol [Mass/volume] in Serum or PlasmaOrdered By: Brandon Ca on 06-13-2022 Cholesterol [Mass/Vol] 118 mg/dL 140-200 [facility] Comment on above: Chol less than 200 m g/dl low riskChol 201-239 mg/dl borderline riskChol 240 mg/dl and greater high risk Cholesterol in LDL Calc [Mas s/Vol]Ordered By: Brandon Ca on 06-13-2022 Cholesterol in LDL [Mass/Vol] 66 mg/dL 0-100 [facility] Comment on above: LDL ATP III CLASSIFI CATIONLDL less than 100 mg/dL OptimalLDL 100-129 mg/dL Near or above optimalLDL 130-159 mg/dL Borderline highLDL 160-189 mg/dL HighLDL greater than 189 mg/dL Very high Cholesterol in VLDL Calc [Ma ss/Vol]Ordered By: Brandon Ca on 06-13-2022 Cholesterol in VLDL [Mass/Vol] 10 mg/dL [facility] Serum or plasma high density lipoprotein (HDL) cholesterol measurementOrdered By: Brandon Ca on 06-13-2022 Cholesterol in HDL [Mass/Vol] 42 mg/dL [facility] Comment on above: HDL CHOL ATP-III CLA SSIFICATION Cardiovascular RiskHDL > or equal to 60 mg/dL LOWHDL < 40 mg/dL HIGH Serum or plasma total choles terol/high density lipoprotein (HDL) cholesterol mass ratOrdered By: Brandon Ca on 06-13-2022 Cholesterol.total/Abi sterol in HDL [Mass ratio] 2.8 {ratio} <5.0 [facility] Thyrotropin [Units/volume] i n Serum or PlasmaOrdered By: Brandon Ca on 06-13-2022 TSH Qn 1.03 m[IU]/L 0.45-5.33 [facility] Triglyceride [Mass/volume] i n Serum or PlasmaOrdered By: Brandon Ca on 06-13-2022 Triglyceride [Mass/Vol] 52 mg/dL 0-149 [facility] Comment on above: TRIG ATP III CLASSIF ICATIONTRIG less than 150 mg/dL NormalTRIG 150-199 mg/dL Borderline highTRIG 200-500 mg/dL High TRIG greater than 500 mg/dL Very highStandard traceable to the Center for Disease Conrtrol and Prevention (CDC) test method. Vitamin D+Metabolites [Mass/ volume] in Serum or PlasmaOrdered By: Brandon Ca on 06-13-2022 Vitamin D+Metabolites [Mass/Vol] 50.0 ng/mL 30-100 [facility] Comment on above: VITAMIN D STATUS 25( [place])VITAMIN D RANGE (ng/mL) Deficient <20 Insufficient 20 to <30Sufficient 30 to 100Reference: Richy MF,Al LUTZ, Yvonne BUCHANAN, et al. Evaluation,treatment, and prevention of vitamin D deficiency; an Endocrine Society clinical practice guideline. JCEM. 2010; 96(7):1911-30. ACETAMINOPHENon 06-12-2022 Acetaminophen [Mass/Vol] ug/mL Critically low 10.0-30.0 [facility] Comment on above: Performed By: #### A CET, SALYC, ETH, CMP #### [facility] [address] [place] [address] Dr. Annabella Lara CBC AUTO DIFFon 06-12-2022 BASO # 0.0 103/ul Normal 0.0-0.1 [facility] Comment on above: Performed By: #### C BC #### [facility] [address] [place] [address] Dr. Annabella Lara Basophils/100 WBC (Bld) 0.3 % Normal 0.2-2.0 [facility] Comment on above: Performed By: #### C BC #### [facility] [address] [place] [address] Dr. Annabella Lara EO # 0.0 103/ul Normal 0.0-0.7 [facility] Comment on above: Performed By: #### C BC #### [facility] [address] [address] [address] Annabella Lara Eosinophils/100 WBC (Bld) 0.5 % Critically low 0.9-7.0 [facility] Comment on above: Performed By: #### C BC #### [facility] [address] [place] [address] Dr. Annabella Lara Erythrocyte distribution width (RBC) [Ratio] 12.1 % Normal 11.0-15.0 [facility] Comment on above: Performed By: #### C BC #### [facility] [address] [place] [address] Dr. Annabella Lara Hematocrit (Bld) [Volume fraction] 46.8 % Normal 42.0-54.0 [facility] Comment on above: Performed By: #### C BC #### [facility] [address] [place] [address] Dr. Annabella Lara Hemoglobin (Bld) [Mass/Vol] 15.9 g/dL Normal 14.0-18.0 [facility] Comment on above: Performed By: #### C BC #### [facility] [address] [place] [address] Dr. Annabella Lara IG # 0.02 10e3/ul Normal 0.00-0.03 [facility] Comment on above: Performed By: #### C BC #### [facility] [address] [place] [address] Dr. Annabella Lara IG % 0.3 % Normal 0.0-0.5 [facility] Comment on above: Performed By: #### C BC #### [facility] [address] [place] [address] Dr. Annabella Lara LYMPH # 1.2 103/ul Normal 1.2-3.8 [facility] Comment on above: Performed By: #### C BC #### [facility] [address] [place] [address] Dr. Annabella Lara Lymphocytes/100 WBC (Bld) 15.9 % Critically low 20.5-60.0 [facility] Comment on above: Performed By: #### C BC #### [facility] [address] [place] [address] Dr. Annabella Lara MANUAL DIFF REQ NO Normal [facility] Comment on above: Performed By: #### C BC #### [facility] [address] [place] [address] Dr. Annabella Lara MCH (RBC) [Entitic mass] 28.9 pg Normal 25.9-34.0 [facility] Comment on above: Performed By: #### C BC #### [facility] [address] [place] [address] Dr. Annabella Lara MCHC (RBC) [Mass/Vol] 34.0 g/dL Normal 29.9-35.2 [facility] Comment on above: Performed By: #### C BC #### [facility] [address] [address] [address] Annabella Lara MCV (RBC) [Entitic vol] 84.9 fL Normal 80.0-94.0 [facility] Comment on above: Performed By: #### C BC #### [facility] [address] [address] [address] Annabella Lara MONO # 0.4 103/ul Normal 0.3-0.8 [facility] Comment on above: Performed By: #### C BC #### [facility] [address] [address] [address] Annabella Lara Monocytes/100 WBC (Bld) 5.6 % Normal 1.7-12.0 [facility] Comment on above: Performed By: #### C BC #### [facility] [address] [address] [address] Annabella Lara NEUT # 5.9 103/ul Normal 1.4-6.5 [facility] Comment on above: Performed By: #### C BC #### [facility] [address] [address] [address] Annabella Lara Neutrophils/100 WBC (Bld) 77.4 % Critically high 43.0-75.0 [facility] Comment on above: Performed By: #### C BC #### [facility] [address] [address] [address] Annabella Lara Platelet mean volume (Bld) [Entitic vol] 10.2 fL Normal 9.5-13.5 [facility] Comment on above: Performed By: #### C BC #### [facility] [address] [address] [address] Annabella Lara PLT 231 103/ul Normal 150-450 [facility] Comment on above: Performed By: #### C BC #### [facility] [address] [address] [address] Annabella Lara RBC 5.51 106/ul Normal 4.70-6.10 [facility] Comment on above: Performed By: #### C BC #### [facility] [address] [address] [address] Annabella Lara WBC 7.6 103/ul Normal 4.0-11.0 [facility] Comment on above: Performed By: #### C BC #### [facility] [address] [address] [address] Annabella Lara [facility] SARS-CoV-2 (COVID-19) RNA KATY+probe Ql (Unsp spec) Not detected Normal NOT DETECTED [facility] Comment on above: Result Comment: When diagnostic [...] for this test is supported by the [place] of [employer] and Human Service's declaration that [...] used). Performed By: #### C VDTBH #### [facility] [address] [address] [address] Annabella Lara DRUG SCREEN RAPID (URINE)on 06-12-2022 AMP Negative Normal NEGATIVE [facility] Comment on above: Performed By: #### D RUGRPD ####[facility] [address] [address]DrRishi Lara BAR Negative Normal NEGATIVE [facility] Comment on above: Performed By: #### D RUGRPD ####[facility] [address] [id number] Lara BUP Negative Normal NEGATIVE [facility] Comment on above: Performed By: #### D RUGRPD ####[facility] [address] [id number]. Annabella Lara BZO Negative Normal NEGATIVE [facility] Comment on above: Performed By: #### D RUGRPD ####[facility] [address] [id number]. Annabella Lara DEQUAN Negative Normal NEGATIVE [facility] Comment on above: Performed By: #### D RUGRPD ####[facility] [address] [place], [place] [address]Dr. Annabella Lara CUT-OFFS SEE BELOW Normal [facility] Comment on above: Result Comment: AMP (Amphetamine): 500ng/mL, BAR (Barbituates): 200 ng/mL, BZO (Benzodiazepines): 150 ng/mL, BUP (Buprenorphine): 10 ng/mL, DEQUAN (Cocaine): 150 ng/mL, mAMP (Methamphetamine): 500 ng/mL, MTD (Methadone): 200 ng/mL, OPI (Opiates): 100 ng/mL, OXY (Oxycodone): 100 ng/mL, PCP (Phencyclidine): 25 ng/mL, PPX (Propoxyphene): 300 ng/mL, THC (Cannabinoids): 50 ng/mL, TCA (Trycyclic Antidepressants): 300 ng/mL Performed By: #### D RUGRPD ####[facility] [address] [place], [place] [address]Dr. Annabella Lara DRUG CUT HEADER DRUG CLASS TEST SYSTEM CUT-OFF CONCENTRATIONS ARE FOLLOWS: Normal [facility] Comment on above: Performed By: #### D RUGRPD ####[facility] [address] [id number]. Annabella Lara mAMP Negative Normal NEGATIVE [facility] Comment on above: Performed By: #### D RUGRPD ####[facility] [address] [place], [place] [address]Dr. Annabella Lara MTD Negative Normal NEGATIVE [facility] Comment on above: Performed By: #### D RUGRPD ####[facility] [address] [place], [place] [address]Dr. Annabella Lara OPI Negative Normal NEGATIVE [facility] Comment on above: Performed By: #### D RUGRPD ####[facility] [address] [address]Dr. Annabella Lara OXY Negative Normal NEGATIVE [facility] Comment on above: Performed By: #### D RUGRPD ####[facility] [address] [address]Dr. Annabella Lara PCP Negative Normal NEGATIVE [facility] Comment on above: Performed By: #### D RUGRPD ####[facility] [address] [address]Dr. Annabella Lara PPX Negative Normal NEGATIVE [facility] Comment on above: Performed By: #### D RUGRPD ####[facility] [address] [place], [place] [address]Dr. Annabella Lara TCA Positive Abnormal NEGATIVE [facility] Comment on above: Performed By: #### D RUGRPD ####[facility] [address] [place], [place] [address]Dr. Annabella Lara THC Positive Abnormal NEGATIVE [facility] Comment on above: Performed By: #### D RUGRPD ####[facility] [address] [place], [place] [address]Dr. Annabella Lara ETHANOL (BLD ALC)on 06-13-19 23 ALC NOTE NOTE: 80 mg/dl is th e legal limit for a blood alcohol level Normal [facility] Comment on above: Performed By: #### A CET, SALYC, ETH, CMP ####[facility] [address] [address]Dr. Annabella Lara Ethanol [Mass/Vol] mg/dL Normal [facility] Comment on above: Performed By: #### A CET, SALYC, ETH, CMP ####[facility] [address] [place], [place] [address]Dr. Annabella Lara PROF 14(COMP METB)on 023 Albumin [Mass/Vol] 4.4 g/dL Normal 3.4-5.0 [facility] Comment on above: Performed By: #### A CET, SALYC, ETH, CMP ####[facility] [address] [address]Dr. Annabella Lara Albumin/Globulin [Mass ratio] 1.3 {ratio} Normal [facility] Comment on above: Performed By: #### A CET, SALYC, ETH, CMP ####[facility] [address] [address]Dr. Annabella Lara ALP [Catalytic activity/Vol] 82 U/L Normal 46-116 [facility] Comment on above: Performed By: #### A CET, SALYC, ETH, CMP ####[facility] [address] [address]Dr. Annabella Lara ALT [Catalytic activity/Vol] 57 U/L Normal 16-63 [facility] Comment on above: Performed By: #### A CET, SALYC, ETH, CMP ####[facility] [address] [address]Dr. Annabella Lara Anion gap [Moles/Vol] 13.6 mmol/L Normal [facility] Comment on above: Performed By: #### A CET, SALYC, ETH, CMP ####[facility] [address] [place], [place] [address]Dr. Annabella Lara AST [Catalytic activity/Vol] 25 U/L Normal 15-37 [facility] Comment on above: Performed By: #### A CET, SALYC, ETH, CMP ####[facility] [address] [address]Dr. Annabella Lara Bilirubin [Mass/Vol] 0.5 mg/dL Normal 0.2-1.0 [facility] Comment on above: Performed By: #### A CET, SALYC, ETH, CMP ####[facility] [address] [place], [place] [address]Dr. Annabella Lara Calcium [Mass/Vol] 9.2 mg/dL Normal 8.5-10.1 [facility] Comment on above: Performed By: #### A CET, SALYC, ETH, CMP ####[facility] [address] [address]Dr. Annabella Lara Chloride [Moles/Vol] 104 mmol/L Normal 98-107 [facility] Comment on above: Performed By: #### A CET, SALYC, ETH, CMP ####[facility] [address] [address]Dr. Annabella Lara CO2 [Moles/Vol] 27.7 mmol/L Normal 21.0-32.0 [facility] Comment on above: Performed By: #### A CET, SALYC, ETH, CMP ####[facility] [address] [address]Dr. Annabella Lara Creatinine [Mass/Vol] 0.71 mg/dL Normal 0.70-1.30 [facility] Comment on above: Performed By: #### A CET, SALYC, ETH, CMP ####[facility] [address] [address]Dr. Annabella Lara EGFR-AF ZAMBIAN >60 Normal >=60 [facility] Comment on above: Performed By: #### A CET, SALYC, ETH, CMP ####[facility] [address] [place], [place] [address]Dr. Annabella Lara EGFR-NON AF ZAMBIAN >60 Normal >=60 [facility] Comment on above: Performed By: #### A CET, SALYC, ETH, CMP ####[facility] [address] [address]Dr. Annabella Lara Globulin (S) [Mass/Vol] 3.4 g/dL Normal [facility] Comment on above: Performed By: #### A CET, SALYC, ETH, CMP ####[facility] [address] [address]Dr. Annabella Lara Glucose [Mass/Vol] 96 mg/dL Normal 74-106 [facility] Comment on above: Performed By: #### A CET, SALYC, ETH, CMP ####[facility] [address] [address]Dr. Annabella Lara Potassium [Moles/Vol] 4.3 mmol/L Normal 3.5-5.1 [facility] Comment on above: Performed By: #### A CET, SALYC, ETH, CMP ####[facility] [address] [address]Dr. Annabella Lara Protein [Mass/Vol] 7.8 g/dL Normal 6.4-8.2 [facility] Comment on above: Performed By: #### A CET, SALYC, ETH, CMP ####[facility] [address] [address]Dr. Ngozigenna Marco Sodium [Moles/Vol] 141 mmol/L Normal 136-145 [facility] Comment on above: Performed By: #### A CET, SALYC, ETH, CMP ####[facility] [address] [address]Dr. Annabella Lara Urea nitrogen [Mass/Vol] 13.0 mg/dL Normal 6.4-19.3 [facility] Comment on above: Performed By: #### A CET, SALYC, ETH, CMP ####[facility] [address] [address]Dr. Annabella Lara Urea nitrogen/Creatinine [Mass ratio] 18.3 mg/mg Normal [facility] Comment on above: Performed By: #### A CET, SALYC, ETH, CMP ####[facility] [address] [address]Dr. Annabella Lara SALICYLATEon 06-12-2022 SALICYLATE <2.8 Normal <=19.9 [facility] Comment on above: Performed By: #### A CET, SALYC, ETH, CMP #### [facility] [address] [address] [address] Annabella Lara XR CSPINE MIN 4 [...] [place] Date: 2022-06-04 14:08 Normal [facility] DRUG SCREEN RAPID (URINE)on 05-28-2022 AMP Negative Normal NEGATIVE [facility] Comment on above: Performed By: #### D RUGRPD ####[facility] [address] [address]Dr. Ngozigenna Lara BAR Negative Normal NEGATIVE [facility] Comment on above: Performed By: #### D RUGRPD ####[facility] [address] [address]Dr. Ngozigenna [facility] BUP Negative Normal NEGATIVE [facility] Comment on above: Performed By: #### D RUGRPD ####[facility] [address] [place], [place] [address]Dr. Ngozigenna Lara BZO Negative Normal NEGATIVE [facility] Comment on above: Performed By: #### D RUGRPD ####[facility] [address] [place], [place] [address]Dr. Ngozigenna Lara DEQUAN Negative Normal NEGATIVE [facility] Comment on above: Performed By: #### D RUGRPD ####[facility] [address] [place], [place] [address]Dr. Annabella Lara CUT-OFFS SEE BELOW Normal [facility] Comment on above: Result Comment: AMP (Amphetamine): 500ng/mL, BAR (Barbituates): 200 ng/mL, BZO (Benzodiazepines): 150 ng/mL, BUP (Buprenorphine): 10 ng/mL, DEQUAN (Cocaine): 150 ng/mL, mAMP (Methamphetamine): 500 ng/mL, MTD (Methadone): 200 ng/mL, OPI (Opiates): 100 ng/mL, OXY (Oxycodone): 100 ng/mL, PCP (Phencyclidine): 25 ng/mL, PPX (Propoxyphene): 300 ng/mL, THC (Cannabinoids): 50 ng/mL, TCA (Trycyclic Antidepressants): 300 ng/mL Performed By: #### D RUGRPD ####[facility] [address] [place], [place] [address]Dr. Annabella Lara DRUG CUT HEADER DRUG CLASS TEST SYSTEM CUT-OFF CONCENTRATIONS ARE FOLLOWS: Normal [facility] Comment on above: Performed By: #### D RUGRPD ####[facility] [address] [place] [address]Dr. Annabella Lara mAMP Negative Normal NEGATIVE [facility] Comment on above: Performed By: #### D RUGRPD ####[facility] [address] [place] [address]Dr. Annabella Lara MTD Negative Normal NEGATIVE [facility] Comment on above: Performed By: #### D RUGRPD ####[facility] [address] [place] [address]Dr. Annabella Lara OPI Negative Normal NEGATIVE [facility] Comment on above: Performed By: #### D RUGRPD ####[facility] [address] [place] [address]Dr. Ngozigenna Lara OXY Negative Normal NEGATIVE [facility] Comment on above: Performed By: #### D RUGRPD ####[facility] [address] [place], [place] [address]Dr. Annabella Marco PCP Negative Normal NEGATIVE [facility] Comment on above: Performed By: #### D RUGRPD ####[facility] [address] [place], [place] [address]Dr. Annabella Lara PPX Negative Normal NEGATIVE [facility] Comment on above: Performed By: #### D RUGRPD ####[facility] [address] [place] [address]Dr. Annabella Marco TCA Positive Abnormal NEGATIVE [facility] Comment on above: Performed By: #### D RUGRPD ####[facility] [address] [place] [address]Dr. Ngozigenna Marco THC Positive Abnormal NEGATIVE [facility] Comment on above: Performed By: #### D RUGRPD ####[facility] [address] [place], [place] [address]Dr. Annabella Lara YESENIA w/Reflex if POSon 2022 Nuclear Ab Ql (S) Negative Invalid Interpretation Code Negative [facility] Comment on above: Result Comment: Perf ormed at: [facility] [address] [place], [place] [id number] PhD Missael Oneal Performed By: #### 2 907199, 6287435, [id number], 29366436, 0113779, 73666596, 8239496, 80732477 #### [facility] [address] [place] [address] [place] [address] Coding Summary.on 04-23-2022 Coding Summary. [id number] G h0bWw+PGhlYWQ+WI9MYHS qB24yyIPenW0GZ4oFPV8X ALXTESAVDA6PKP3xgVQ4T RfnQ8YejbGk DayvuSKtUX77MJu4FQP3y WhgZIietH5fpFQzM5r4Mx LpMB16uZ92SNnmAAOiUwZ 3LjZpbjsgbWFy N7umAnJgsFOzBkw+PHRhY mxlIHdpZHRoPScxMDAlJy GylSxuKN1hCg3tMBReCSI vbGxhcHNlOiBj c5usNWLyOBjnAH7ozBfuX 3OwgAE9UJGxp5h2Mv82tS I+AZJfOKU1tWmwGRlyr15 3SjSfr0ulAPF8 hCKgJDgdMKK6N64im1Q8M GWkBIJuVBZ7zHK9uV8jmK knorwlP8FigYOoKaG0IGT 4rDRpsD0cyImt qiuauJ7tTlc+J24MTU3CR VDANC3STtc8S7QkGapvhN I+HM39TTQyEZ35hXSeqYX xu3iloLr0ScZc BQDcOYH9fMyeOTuqw3QeG WBcX51eqWUlg1L8BLQpmC zszNRdVpLymVZ5oL5yGFa hfsqqb2krljoi Jmlld4sffb70hV52Y62zN RqhAETkJWG0MIMfHWCauG rnxm3dbZ1nMz4+HAacx7d eq3ncuPd4VuJx NQEsfqWrlVvuEUP2y3NqA o79J1SaoZbkd5JjEgd0zu 07sIYnq8I4lIN5NFbpXUE fsQ0bGJdeJiU5 MGSeBdJxfF85xQZwTRdnM z2twSnrvUfuVV7hKKYblm goGOTlwK4nBCJmiDSuvAr fJW7eRVCtjuhe t641CpXuYVB1MOCofOMiR 5YmuG2wSbIuYWSaPHEhX1 PnmLAtINcjO477EVtxLbK 9BLSwcoAyN8Wf NXOlqIpjYiC0i6Y2Wu0Rx 8XcagrvADU7IDvgSWFzCc G1SbPqOdM4V2CrRjh7OIW jzJahEK4hI0Ph XTRdetmifhryfPL9JUNwK NAtzH14aIPqOIjvAk1qi5 O0w328PWZtKYNxbL24Ye0 udDogMTBwdCBU wQ2bnkbgq7eivdsbJjGhP TPoOVs8QCy6AQRazHneBd AaSOG1XeE2UYH2aFAblF6 reXduyynmhX1v Oyc+R74bbX3kMBJ3YTJ7f rmqNCNsglLsWX02RJ97N0 RyPjwvdGFibGU+PGRpdiB ogNiuGP1sSqIs x4jbn0OpOMocV8WvGAYaC BeqHcd9YRMoJWB2iOG6qP 5uTVJvALdnt5Z5qLA2N9T psgSpkw2bm1bd YOZkCVjuT94oaFEnh9S4H CCtzNL4ABIqxQwlDlNspO 93Oyc+QDSbjJcpy4GoEmn oy4jxi4gelNb2 ZmKcGTSheySyiJknEBF7y 8DlLi99R03tKRvvYRVhKB DbDCXbZEYvrZkfrx7mhB7 wIi8+PGNvbCB3 wCT7aQ8vSNUeHuC0JUlxN 835GiHvbYEdZzybs2leg1 ngyRc8KtMoYXXfzyYxgVk kCKU9w4KjIu99 C84oOGvsXNNdVKSjVEXlY WBhgKkqtv6azN9iTc0+PC 8jf5cazo10bK79bFD+PHR fTHR7nUwrANwu PGSsgO9gYOecFvL7UXNzV lJgbO17zDBvCWudZt9geD npaKndZW8sZWAajjlef65 5TvTjk1qzDMMu vWDxPQkjXQR4D63ck7M2G GTsGVTlCPC2gDT2oX8lnN lnbjogbGVmdDsgdmVydGl qCZvtMHgeT286 IHRvcDsnPlBhdGllbnQgT oHzHFb8S4EgLor9NEZdbM hxGW7noNGiQNnpPp2suWo qxEfqPD5sJDHc gigie833ObHkz0vkCZLkt MRtOAapZUW1F44pt0D7HO RpFMMeSVW6zJM4yI3mdEa nbjogbGVmdDsg qmImpGrqBZveFUvbH819A HRvcDsnPkJpcnRoIERhdG E0WM65HU49xAUsw8Y3zFB 7O1AzACOetsit fhamrAX7XPIoRNGqiQ74A n8rdUfsEu6jZXCyAPE2ZK NvfJXgI5RkaW3aRzOfBYE aUGEeC6DawYVv VWttJ779ZRuzVsF8FEHag qCxK6SlIOUgpSpgPjB7l5 Y4Sw5DC8K3GP27JK32cZR sk6K7lFE7Y0Wr IEWneqjifgjbgLX6UWJkT LIwkY42Oo0iqZotDa3jZD DsIOT3ATXjsIPzX5LutY7 yOiAjMDAwMDAw R6KnhOXmFMnyM767UXepX yD1FZWaobKuL7TrWXInyO siFiK4w5J6Xv8JESx5NW3 3XG95kNVao3Q9 pXX0Z9MmULGfpgfdtmctb NB9MSMeLXCqrZ12Vv6jsO poHs0wCWNdQQI7APTqiZK eY5MtlH3hVxVe DWVeMLOgV2IvdBMxBSlzZ 228FSegUgB4CYJmowJwK0 ZoYECnnWbjHxP2n0O0Yn1 HXMIeTR59QZH3 zKL1YR52IK27T4GmLsksh GFibGU+PHRhYmxlIHdpZH RoPScxMDAlJyBzdHlsZT0 tGl3iDQNvWBGf wVkwwCMmDnSuu6kdCNTvA GivIS1buZlqK5WloLU4TN Xzi1s4Ht41M88wU9JdoJI +BGKalYC7wHF9 oH9xKaDnLaI7FShqM533N jMbiEQkPxijd7bjm4fssL l0YuA2FSDsdvEmwCwhYBS 4k2UcLd36Z46q IHdpZHRoPSIxNSUiIHZhb Dkhck5rtU2mPp9+PGNvbC L9uFK1jQ7nNoOwMwC1EDb jJ736AbXygPKt Gltsf9scb7mqnGo7IiFsP SEsysNfdJbjGFD5s4CnZp 91S4PjbTcio7ZvUts9sf8 9wKZna5S8fML4 D6TgMVPuumuelDPanYkrM N9iCQWdqtkrEVChgM1eIB ZdF8z1LeKwBuW0BYwxZ5O xlrA4MUAekTPl MFsvWQY1R16es9F3DPFrE OLsWIK1oRR9jM3kmHiqin ogbGVmdDsgdmVydGljYWw yIBegO460VIUw oAbzOKXbrJ8jBKZlmWFrm JzfSF0tHQZthmaeQzfOBV GTVdhwLMZYAHxRPW89VH0 6jSXfj1K0dVQ0 K2QtAEPiofmhpsvquGU0P OCyBUHpsI89cLByCKvgLl 5ea4F0s649HDAlTWUxbO3 6Ab0fzRvgOCMs gSRIkZ7mbxhpy7hryxcqM hDsHCPbUUu6UEj5KGLprW cnTwLrICP0FyI3JMB3jPD xeK9abDxgoybw sD7wLto+MDcvMTkvMjAwM zwvdGQ+LYXcNPW0nVduZX ikUAYkmG1kTBYsP6c3NlW fEtF1IHlpR3Dj PGCpwdcaMn65yS6hRcWsO pN8UQehX7RjnjW5FOHsrI UmOKltEUK1T33tx5Y4HNF yRBCwRKI2aQO5 hC9fhDmvvuyruKNabYnfx oAgtVnhBVqlSSmhN743XB AuxYaiHzR2ZTypKPAbDW4 6ZI73oFOcl8E6 tBY1A9VxXWXtuktqaiorw RE3RTSxIBZqmM93uIFdRJ vtDy2ve8H3v743AJVgIBF seV20Ts3ibVff MHVslBJStK1bqmint6yad jlqKcZwZJKjOBf4LUf3UH LlfBglZkMiSFT9OpB4FPN 4bMLpkC0jnQao mzurvW8eQyz+TWFsZTwvd GQ+LDZrMRP9nDjkLEpcUQ EpuS4jGRGwV1g1YrXmCuY 9YBszG9XyACFg tokgHe68tL8dWlLcAuW6U DrxM0DhdiU1MOThdFYjMK cuEST7J15nv3W1JIGkMGX sOOK0nEK1dR6o bGlnbjogbGVmdDsgdmVyd BtfLEfoUQjtD500YIFixG jcXy98lSQvdFhrauU8L7J kPjwvdHI+PC90 SPQlXJ89sDUqeBLvq9loh Tm3OwCkMTReMUZ1nIqeOR mne9CxLCAaC11woAOtl6D 6IGNvbGxhcHNl KsVkdOS8xU7oAOmypmyod 0qrjbloFlqzb9imxi57gX 68C72xWTxlJPXvEOMxIYH jJNVnkUychu8w pH5mPy7+EBHzgVS4aUV3c T9zPxLhYnA4ALyoK665Wc LfqVCmAmnyy8ftp0bwiQe 9IjIwJSIgdmFs uUfxRYM4k0XkCz24L22oZ HdpZHRoPSIyMCUiIHZhbG bbgh7kpV4yPh2+PU9ta1k zsg00oE90lLG+ TMBzNGP7iLmhOTeyGSFih H6gRZlqGgK5RUWuRpLbfR 71zLYaRDgzVv0uaEixbGy wNB8sKYTxqvvg y957AsUnd1zyVLMqaDIfG GifJGM6Y24oi9L6CIRcTY WrVKB5zTT2cP7fkSvxmge gbGVmdDsgdmVy eVccOZnqLGvrF254YXJxf HpcLgAdbBSoH0yfgkPZUH 1lOjwvdGQ+ZMCpACW8zFz qCZlpHDKxjR0v LEPpV5x8YpDgStG2SVzzJ 6VoudQ0XEQicQGfGVUxuM BUvY3tmhsrl6kgwlxrGoF fPRGrQKh1UHq8 ZZLerRwoVlEqNTR9QdY5D TT7nYCjhS2fiLerguqldY 9wOyc+RklOOjwvdGQ+PHR wCTW2aQlgVXxd YGPemI6rMYUdE8x7HvOoT iY3TXfeP9JigwQ3KBFfxY MfZIUfqAEUzW3jdrmol9q vcjogIzAwMDAw PEn0HJj4YZUcsBovNkSoX UI0FeI8LFK3oQEsjY8jaK ahtmcuxV3cDkj+TVJOOjw vdGQ+PHRkIHN0 jBwfLLpvZDGzgG6pRIYkU 2x3FuDyIuN5HIpkG9Nkdf I2RRPugFQbGUUdoDHBqL2 dvceze1etocrs UsHhEGFnNXe3QRn3DBQwp TgoKlFzPAG4FvC7KVZ0tX KoeN0unYwodjfykK2cXoj +TBV5HZA0JH80 MH14U6EnZduhcESkeWF+P HRhYmxlIHdpZHRoPScxMD FeRwElaJelVK0zPf3zUJB yLWNvbGxhcHNl OiBj (more content not included)... Normal [facility] RF Quanton 04-23-2022 Rheumatoid factor Qn [IU]/mL Invalid Interpretation Code <14.0 [facility] Comment on above: Result Comment: Perf ormed at: [facility] [address] [id number] PhD Missael Oneal Performed By: #### 2 198235, 8369713, 66509015, 36908468, 4109340, 07743747, 5756625, 73940824 #### [facility] [address] [place] [address] BMPon 04-19-2022 Anion gap [Moles/Vol] 12 mmol/L Normal 6-16 [facility] Comment on above: Performed By: #### 2 131771, 6963730, 16554832, 19573837, 4474390, 16092065, 7963029, 48303799 #### [facility] [address] [place] [address] Calcium [Mass/Vol] 9.7 mg/dL Normal 8.9-11.1 [facility] Comment on above: Performed By: #### 2 424785, 2589583, 61408963, 26410219, 5211840, 87358387, 1638957, 73776946 #### [facility] [address] [place] [address] Chloride [Moles/Vol] 99 mmol/L Low 101-111 [facility] Comment on above: Performed By: #### 2 541285, 3798410, 74259218, 94723059, 9998785, 48291623, 7366143, 71241771 #### [facility] [address] [place] [address] CO2 [Moles/Vol] 32 mmol/L High 21-31 [facility] Comment on above: Performed By: #### 2 068581, 7361156, 53650952, 36780912, 8546315, 91469583, 7362186, 69391446 #### [facility] [address] [place] [address] Creatinine [Mass/Vol] 0.8 mg/dL Normal 0.5-1.3 [facility] Comment on above: Performed By: #### 2 655307, 7788239, 03343569, 26271398, 1152792, 10077428, 7191620, 39364311 #### [facility] [address] [place] [address] Glucose [Mass/Vol] 92 mg/dL Normal 55-199 [facility] Comment on above: Result Comment: If t his glucose result represents a fasting glucose, interpretation should refer to the following reference range: 55-99 mg/dL Performed By: #### 2 100780, 4842243, 23956247, 40141974, 6443029, 32261513, 0748131, 42196816 #### [facility] [address] [place] [address] Potassium [Moles/Vol] 4.0 mmol/L Normal 3.5-5.3 [facility] Comment on above: Performed By: #### 2 793431, 5266542, 58527945, 93947212, 8439136, 10241911, 2321774, 91954596 #### [facility] [address] [place] [address] Sodium [Moles/Vol] 139 mmol/L Normal 135-145 [facility] Comment on above: Performed By: #### 2 389497, 1436417, 15058230, 32008423, 4831756, 93945917, 6892736, 69902022 #### [facility] [address] [place] [address] Urea nitrogen [Mass/Vol] 13 mg/dL Normal 5-21 [facility] Comment on above: Performed By: #### 2 878609, 4380555, 00069884, 19103153, 0606888, 72529657, 0442956, 20610603 #### [facility] [address] [place] [address] Urea nitrogen/Creatinine [Mass ratio] 16 No Units Normal 10-20 [facility] Comment on above: Performed By: #### 2 053815, 6983096, 49143748, 16848201, 4095929, 50343807, 3869861, 38354699 #### [facility] [address] [place] [address] CBC w/Indiceson 04-19-2022 Erythrocyte distribution width (RBC) [Ratio] 13.6 % Normal 10.9-14.2 [facility] Comment on above: Performed By: #### 2 125568, 2632500, 32738420, 71071559, 4313550, 41604699, 7678642, 02831493 #### [facility] [address] [place] [address] Hematocrit (Bld) [Volume fraction] 46.2 % Normal 37.7-49.0 [facility] Comment on above: Performed By: #### 2 409981, 2224893, 13865756, 71862250, 0721088, 72265910, 2078567, 96320645 #### [facility] [address] [place] [address] Hemoglobin (Bld) [Mass/Vol] 15.9 g/dL Normal 13.5-17.5 [facility] Comment on above: Performed By: #### 2 836845, 6332299, 78457733, 45501721, 3896918, 01037040, 4542766, 25097468 #### [facility] [address] [place] [address] MCH (RBC) [Entitic mass] 29.8 pg Normal 27.0-34.0 [facility] Comment on above: Performed By: #### 2 986543, 6387292, 15323365, 56372794, 4630030, 87029442, 3819210, 42980290 #### [facility] [address] [place] [address] MCHC (RBC) [Mass/Vol] 34.4 g/dL Normal 31.4-36.0 [facility] Comment on above: Performed By: #### 2 338542, 1969548, 83516775, 75895851, 2570885, 13778105, 0178039, 01970407 #### [facility] [address] [place] [address] MCV (RBC) [Entitic vol] 86.5 fL Normal 80.0-100.0 [facility] Comment on above: Performed By: #### 2 975231, 3339827, 42137184, 76131067, 7097231, 04925754, 2126339, 53632396 #### [facility] [address] [place] [address] Platelet mean volume (Bld) [Entitic vol] 8.6 fL Normal 6.4-10.8 [facility] Comment on above: Performed By: #### 2 592079, 1381507, 56639027, 49893873, 7057404, 87310668, 2037719, 09281643 #### [facility] [address] [place] [address] Platelets (Bld) [#/Vol] 245.0 E9/L Normal 150.0-500.0 [facility] Comment on above: Performed By: #### 2 132838, 1328417, 34214964, 67926550, 6490869, 10288659, 5291400, 26113669 #### [facility] [address] [place] [address] RBC (Bld) [#/Vol] 5.3 E12/L Normal 4.3-5.9 [facility] Comment on above: Performed By: #### 2 586828, 7891030, 94645441, 11126504, 2930683, 24334404, 7388343, 71939498 #### [facility] [address] [place] [address] WBC corrected for nucl RBC Auto (Bld) [#/Vol] 4.9 E9/L Normal 4.0-11.0 [facility] Comment on above: Performed By: #### 2 262116, 6220121, 34042664, 23985633, 4646098, 39244006, 8626025, 83705249 #### [facility] [address] [place] [address] CHEMISTRYOrdered By: SYSTEM SYSTEM on 04-19-2022 Anion gap [Moles/Vol] 12 mmol/L Normal 6 - 16 mEq/L [facility] Remisol Calcium [Mass/Vol] 9.7 mg/dL Normal 8.9 - 11. 1 mg/dL [facility] Chloride [Moles/Vol] 99 mmol/L Low 101 - 1 11 mmol/L [facility] CO2 [Moles/Vol] 32 mmol/L High 21 - 31 mmol/L [facility] Creatinine [Mass/Vol] 0.8 mg/dL Normal 0.5 - 1.3 mg/dL [facility] CRP [Mass/Vol] 0.7 mg/dL Normal <=1.9mg/dL [facility] Remis ol GFR/1.73 sq M.predicted among blacks MDRD (S/P/Bld) [Vol rate/Area] mL/min/1.73 m2 Normal >=59mL/min/ 1.73 m2 [facility] Chem S GFR/1.73 sq M.predicted among non-blacks MDRD (S/P/Bld) [Vol rate/Area] mL/min/1.73 m2 Normal >=59mL/min/ 1.73 m2 [facility] Chem S Glucose [Mass/Vol] 92 mg/dL Normal 55 - 199 mg/dL [facility] Potassium [Moles/Vol] 4.0 mmol/L Normal 3.5 - 5.3 mmol/L [facility] Sodium [Moles/Vol] 139 mmol/L Normal 135 - 145 mmol/L [facility] Urate [Mass/Vol] 5.1 mg/dL Normal 2.2 - 7.4 mg/dL [facility] Urea nitrogen [Mass/Vol] 13 mg/dL Normal 5 - 21 mg/dL [facility] Urea nitrogen/Creatinine [Mass ratio] 16 mg/mg Normal 10 - 20 [facility] CRPon 04-19-2022 CRP [Mass/Vol] 0.7 mg/dL Normal <=1.9 [facility] Comment on above: Performed By: #### 2 911219, 0184082, 46652848, 48794197, 7968414, 45248645, 0872709, 61112299 #### [facility] [address] [place] [address] Consent for Treatmenton Consent for Treatment [id number] .00CD:127 Normal [facility] HEMATOLOGYOrdered By: Una Bhatti on 04-19-2022 Erythrocyte distribution width (RBC) [Ratio] 13.6 % Normal 10.9 - 14.2 % [facility]e[employer] Hematocrit (Bld) [Volume fraction] 46.2 % Normal 37.7 - 49.0 % [facility] Hemoglobin (Bld) [Mass/Vol] 15.9 g/dL Normal 13.5 - 17.5 gm/dL [facility] MCH (RBC) [Entitic mass] 29.8 pg Normal 27.0 - 34.0 pg [facility] MCHC (RBC) [Mass/Vol] 34.4 g/dL Normal 31.4 - 36.0 gm/dL [facility] MCV (RBC) [Entitic vol] 86.5 fL Normal 80.0 - 100.0 fL [facility] [employer] Platelet mean volume (Bld) [Entitic vol] 8.6 fL Normal 6.4 - 10.8 fL [facility] [employer] Platelets (Bld) [#/Vol] 245.0 E9/L Normal 150. 0 - 500.0 E9/L [facility] [employer] RBC (Bld) [#/Vol] 5.3 E12/L Normal 4.3 - 5.9 E12/L [facility] [employer] Sed Rate Automated 6 mm/h Normal 0 - 19 mm/hr [facility] [employer] WBC corrected for nucl RBC Auto (Bld) [#/Vol] 4.9 E9/L Normal 4.0 - 11.0 E9/L [facility] [employer] Physician Orderon 04-19-2022 Physician Order [id number]# 1.00CD:127 Normal [facility] Sed Rate Automatedon 023 Sed Rate Automated 6 mm/hr Normal 0-19 [facility] Comment on above: Performed By: #### 2 835549, 3906301, 62686502, 07938138, 8774787, 76341677, 1795925, 71546665 #### [facility] [address] [place] [address] Uric Acidon 04-19-2022 Urate [Mass/Vol] 5.1 mg/dL Normal 2.2-7.4 [facility] Comment on above: Performed By: #### 2 960664, 3724675, 09176217, 25070378, 5323696, 77661313, 7670926, 05412298 #### [facility] [address] [place] [address] eGFRon 04-19-2022 GFR/1.73 sq M.predicted among blacks MDRD (S/P/Bld) [Vol rate/Area] mL/min/{1.73_m2} Normal >=59 [facility] Comment on above: Order Comment: Order added by Discern Expert. Result Comment: eGFR is race adjusted. AA=. Performed By: #### 2 032402, 9386432, 00332580, 45452661, 4581672, 36011087, 0759514, 13382297 #### [facility] [address] [place] [address] GFR/1.73 sq M.predicted among non-blacks MDRD (S/P/Bld) [Vol rate/Area] mL/min/{1.73_m2} Normal >=59 [facility] Comment on above: Order Comment: Order added by Discern Expert. Result Comment: Nuclear [employer] Operator anni kidney disease could be indicated at eGFR's of less than 60 mL/min/1.73m2. Kidney failure is indicated at less than 15 mL/min/1.73m2. Performed By: #### 2 [id number], [id number] #### [place] [facility] [address] [place] [address] ACETAMINOPHENon 01-28-2022 Acetaminophen [Mass/Vol] ug/mL Critically low 10.0-30.0 [facility] Comment on above: Performed By: #### E ANDRES GORDON, IRINA #### [facility] [address] [place] [address] Dr. Annabella Lara CBC AUTO DIFFon 01-28-2022 BASO # 0.0 103/ul Normal 0.0-0.1 [facility] Comment on above: Performed By: #### C BC #### [facility] [address] [place] [address] Dr. Annabella Lara Basophils/100 WBC (Bld) 0.3 % Normal 0.2-2.0 [facility] Comment on above: Performed By: #### C BC #### [facility] [address] [place] [address] Dr. Annabella Lara EO # 0.1 103/ul Normal 0.0-0.7 [facility] Comment on above: Performed By: #### C BC #### [facility] [address] [place] [address] Dr. Annabella Lara Eosinophils/100 WBC (Bld) 2.0 % Normal 0.9-7.0 [facility] Comment on above: Performed By: #### C BC #### [facility] [address] [place] [address] Dr. Annabella Lara Erythrocyte distribution width (RBC) [Ratio] 12.8 % Normal 11.0-15.0 [facility] Comment on above: Performed By: #### C BC #### [facility] [address] [place] [address] Dr. Annabella Lara Hematocrit (Bld) [Volume fraction] 46.9 % Normal 42.0-54.0 [facility] Comment on above: Performed By: #### C BC #### [facility] [address] [place] [address] Dr. Annabella Lara Hemoglobin (Bld) [Mass/Vol] 16.1 g/dL Normal 14.0-18.0 [facility] Comment on above: Performed By: #### C BC #### [facility] [address] [place] [address] Dr. Annabella Lara IG # 0.01 10e3/ul Normal 0.00-0.03 [facility] Comment on above: Performed By: #### C BC #### [facility] [address] [place] [address] Dr. Annabella Lara IG % 0.1 % Normal 0.0-0.5 [facility] Comment on above: Performed By: #### C BC #### [facility] [address] [place] [address] Dr. Annabella Lara LYMPH # 1.2 103/ul Normal 1.2-3.8 [facility] Comment on above: Performed By: #### C BC #### [facility] [address] [place] [address] Dr. Annabella Lara Lymphocytes/100 WBC (Bld) 17.3 % Critically low 20.5-60.0 [facility] Comment on above: Performed By: #### C BC #### [facility] [address] [place] [address] Dr. Annabella Lara MANUAL DIFF REQ NO Normal [facility] Comment on above: Performed By: #### C BC #### [facility] [address] [place] [address] Dr. Annabella Lara MCH (RBC) [Entitic mass] 29.1 pg Normal 25.9-34.0 [facility] Comment on above: Performed By: #### C BC #### [facility] [address] [place] [address] Dr. Annabella Lara MCHC (RBC) [Mass/Vol] 34.3 g/dL Normal 29.9-35.2 [facility] Comment on above: Performed By: #### C BC #### [facility] [address] [place] [address] Dr. Annabella Lara MCV (RBC) [Entitic vol] 84.8 fL Normal 80.0-94.0 [facility] Comment on above: Performed By: #### C BC #### [facility] [address] [place] [address] Dr. Annabella Lara MONO # 0.5 103/ul Normal 0.3-0.8 [facility] Comment on above: Performed By: #### C BC #### [facility] [address] [place] [address] Dr. Annabella Lara Monocytes/100 WBC (Bld) 6.4 % Normal 1.7-12.0 [facility] Comment on above: Performed By: #### C BC #### [facility] [address] [place] [address] Dr. Annabella Lara NEUT # 5.2 103/ul Normal 1.4-6.5 [facility] Comment on above: Performed By: #### C BC #### [facility] [address] [place] [address] Dr. Annabella Lara Neutrophils/100 WBC (Bld) 73.9 % Normal 43.0-75.0 [facility] Comment on above: Performed By: #### C BC #### [facility] [address] [place] [address] Dr. Annabella Lara Platelet mean volume (Bld) [Entitic vol] 10.7 fL Normal 9.5-13.5 [facility] Comment on above: Performed By: #### C BC #### [facility] [address] [address] [address] Annabella Lara PLT 179 103/ul Normal 150-450 [facility] Comment on above: Performed By: #### C BC #### [facility] [address] [address] [address] Annabella Lara RBC 5.53 106/ul Normal 4.70-6.10 [facility] Comment on above: Performed By: #### C BC #### [facility] [address] [address] [address] Annabella Lara WBC 7.0 103/ul Normal 4.0-11.0 [facility] Comment on above: Performed By: #### C BC #### [facility] [address] [address] [address] Annabella Lara Covid-19 PCR ([facility])on 01-16 SARS-CoV-2 (COVID-19) RNA KATY+probe Ql (Unsp spec) Not detected Normal NOT DETECTED [facility] Comment on above: Result Comment: When diagnostic [...] for this test is supported by the [employer] of Health and Human Service's declaration that [...] be used). Performed By: #### C VDTBH ####[facility] [address] [address]Dr. Annabella Lara DRUG SCREEN RAPID (URINE)on 01-28-2022 AMP Negative Normal NEGATIVE [facility] Comment on above: Performed By: #### D RUGRPD ####[facility] [address] [address]Dr. Annabella Lara BAR Negative Normal NEGATIVE [facility] Comment on above: Performed By: #### D RUGRPD ####[facility] [address] [address]Dr. Annabella Lara BUP Negative Normal NEGATIVE [facility] Comment on above: Performed By: #### D RUGRPD ####[facility] [address] [place], [place] [address]Dr. Annabella Lara BZO Negative Normal NEGATIVE [facility] Comment on above: Performed By: #### D RUGRPD ####[facility] [address] [place], [place] [address]Dr. Annabella Lara DEQUAN Negative Normal NEGATIVE [facility] Comment on above: Performed By: #### D RUGRPD ####[facility] [address] [place], [place] [address]Dr. Annabella Lara CUT-OFFS SEE BELOW Normal [facility] Comment on above: Result Comment: AMP (Amphetamine): 500ng/mL, BAR (Barbituates): 200 ng/mL, BZO (Benzodiazepines): 150 ng/mL, BUP (Buprenorphine): 10 ng/mL, DEQUAN (Cocaine): 150 ng/mL, mAMP (Methamphetamine): 500 ng/mL, MTD (Methadone): 200 ng/mL, OPI (Opiates): 100 ng/mL, OXY (Oxycodone): 100 ng/mL, PCP (Phencyclidine): 25 ng/mL, PPX (Propoxyphene): 300 ng/mL, THC (Cannabinoids): 50 ng/mL, TCA (Trycyclic Antidepressants): 300 ng/mL Performed By: #### D RUGRPD ####[facility] [address] [place], [place] [address]Dr. Annabella Lara DRUG CUT HEADER DRUG CLASS TEST SYSTEM CUT-OFF CONCENTRATIONS ARE FOLLOWS: Normal [facility] Comment on above: Performed By: #### D RUGRPD ####[facility] [address] [address]Dr. Annabella Lara mAMP Negative Normal NEGATIVE [facility] Comment on above: Performed By: #### D RUGRPD ####[facility] [address] [id number]. Annabella Lara MTD Negative Normal NEGATIVE [facility] Comment on above: Performed By: #### D RUGRPD ####[facility] [address] [address]Dr. Annabella Lara OPI Negative Normal NEGATIVE [facility] Comment on above: Performed By: #### D RUGRPD ####[facility] [address] [place], [place] [address]Dr. Annabella Lara OXY Negative Normal NEGATIVE [facility] Comment on above: Performed By: #### D RUGRPD ####[facility] [address] [place], [place] [address]Dr. Annabella Lara PCP Negative Normal NEGATIVE [facility] Comment on above: Performed By: #### D RUGRPD ####[facility] [address] [place], [place] [address]Dr. Annabella Lara PPX Negative Normal NEGATIVE [facility] Comment on above: Performed By: #### D RUGRPD ####[facility] [address] [address]Dr. Annabella Lara TCA Negative Normal NEGATIVE [facility] Comment on above: Performed By: #### D RUGRPD ####[facility] [address] [place], [place] [address]Dr. Annabella Lara THC Positive Abnormal NEGATIVE [facility] Comment on above: Performed By: #### D RUGRPD ####[facility] [address] [place], [place] [address]Dr. Annabella Lara ETHANOL (BLD ALC)on 01-29-20 22 ALC NOTE NOTE: 80 mg/dl is th e legal limit for a blood alcohol level Normal [facility] Comment on above: Performed By: #### E TH, SALYC, ACET #### [facility] [address] [address] [address] Annabella Lara Ethanol [Mass/Vol] mg/dL Normal [facility] Comment on above: Performed By: #### E ANDRES ACET #### [facility] [address] [place] [address] Dr. Annabella Lara PROF 14(COMP METB)on 022 Albumin [Mass/Vol] 4.2 g/dL Normal 3.4-5.0 [facility] Comment on above: Performed By: #### C MP #### [facility] [address] [place] [address] Dr. Annabella Lara Albumin/Globulin [Mass ratio] 1.0 {ratio} Normal [facility] Comment on above: Performed By: #### C MP #### [facility] [address] [place] [address] Dr. Annabella Lara ALP [Catalytic activity/Vol] 82 U/L Normal 46-116 [facility] Comment on above: Performed By: #### C MP #### [facility] [address] [place] [address] Dr. Annabella Lara ALT [Catalytic activity/Vol] 31 U/L Normal 16-63 [facility] Comment on above: Performed By: #### C MP #### [facility] [address] [place] [address] Dr. Annabella Lara Anion gap [Moles/Vol] 6.9 mmol/L Normal [facility] Comment on above: Performed By: #### C MP #### [facility] [address] [place] [address] Dr. Annabella Lara AST [Catalytic activity/Vol] 24 U/L Normal 15-37 [facility] Comment on above: Performed By: #### C MP #### [facility] [address] [place] [address] Dr. Annabella Lara Bilirubin [Mass/Vol] 0.2 mg/dL Normal 0.2-1.0 [facility] Comment on above: Performed By: #### C MP #### [facility] [address] [address] [address] Annabella Lara Calcium [Mass/Vol] 9.2 mg/dL Normal 8.5-10.1 [facility] Comment on above: Performed By: #### C MP #### [facility] [address] [address] [address] Annabella Lara Chloride [Moles/Vol] 103 mmol/L Normal 98-107 [facility] Comment on above: Performed By: #### C MP #### [facility] [address] [place] [address] Dr. Annabella Lara CO2 [Moles/Vol] 30.5 mmol/L Normal 21.0-32.0 [facility] Comment on above: Performed By: #### C MP #### [facility] [address] [place] [address] Dr. Annabella Lara Creatinine [Mass/Vol] 0.80 mg/dL Normal 0.70-1.30 [facility] Comment on above: Performed By: #### C MP #### [facility] [address] [place] [address] Dr. Annabella Lara EGFR-AF ZAMBIAN >60 Normal >=60 [facility] Comment on above: Performed By: #### C MP #### [facility] [address] [place] [address] Dr. Annabella Lara EGFR-NON AF ZAMBIAN >60 Normal >=60 [facility] Comment on above: Performed By: #### C MP #### [facility] [address] [address] [address] Annabella Lara Globulin (S) [Mass/Vol] 4.0 g/dL Normal [facility] Comment on above: Performed By: #### C MP #### [facility] [address] [place] [address] Dr. Annabella Lara Glucose [Mass/Vol] 84 mg/dL Normal 74-106 [facility] Comment on above: Performed By: #### C MP #### [facility] [address] [address] [address] Annabella Lara Potassium [Moles/Vol] 4.4 mmol/L Normal 3.5-5.1 [facility] Comment on above: Performed By: #### C MP #### [facility] [address] [address] [address] Annabella Lara Protein [Mass/Vol] 8.2 g/dL Normal 6.4-8.2 [facility] Comment on above: Performed By: #### C MP #### [facility] [address] [address] [address] Annabella Lara Sodium [Moles/Vol] 136 mmol/L Normal 136-145 [facility] Comment on above: Performed By: #### C MP #### [facility] [address] [place] [address] Dr. Annabella Lara Urea nitrogen [Mass/Vol] 12.0 mg/dL Normal 6.4-19.3 [facility] Comment on above: Performed By: #### C MP #### [facility] [address] [place] [address] Dr. Annabella Lara Urea nitrogen/Creatinine [Mass ratio] 15.0 mg/mg Normal [facility] Comment on above: Performed By: #### C MP #### [facility] [address] [place] [address] Dr. Annabella Lara SALICYLATEon 01-28-2022 SALICYLATE <2.8 Normal <=19.9 [facility] Comment on above: Performed By: #### E TH, ANDRES, ACET #### [facility] [address] [place] [address] Dr. Annabella Lara Vital Signs Date Time Vital Sign Value Performing Clinician Facility 09-25-2024 13:28-0400 Diastolic blood pressure 88 mm[Hg] [facility] 09-25-2024 13:28-0400 Heart rate 68 /min [facility] 09-25-2024 13:28-0400 Respiratory rate 12 /min [facility] 09-25-2024 13:28-0400 Systolic blood pressure 138 mm[Hg] [facility] 09-02-2024 08:45-0400 Diastolic blood pressure 70 mm[Hg] [facility] 09-02-2024 08:45-0400 Heart rate 72 /min [facility] 09-02-2024 08:45-0400 Respiratory rate 12 /min [facility] 09-02-2024 08:45-0400 Systolic blood pressure 121 mm[Hg] [facility] 09-01-2024 13:25-0400 Diastolic blood pressure 67 mm[Hg] [facility] 09-01-2024 13:25-0400 Heart rate 72 /min [facility] 09-01-2024 13:25-0400 Respiratory rate 12 /min [facility] 09-01-2024 13:25-0400 Systolic blood pressure 106 mm[Hg] [facility] 09-01-2024 09:06-0400 Diastolic blood pressure 80 mm[Hg] [facility] 09-01-2024 09:06-0400 Heart rate 73 /min [facility] 09-01-2024 09:06-0400 Respiratory rate 12 /min [facility] 09-01-2024 09:06-0400 Systolic blood pressure 118 mm[Hg] [facility] 06-03-2024 10:55-0400 Body height 170.2 cm Ian Iqbal MD Work Phone: [facility] 06-03-2024 10:55-0400 Body mass index (BMI) [Ratio] 21.93 kg/m2 Ian Iqbal MD Work Phone: [facility] 06-03-2024 10:55-0400 Body weight 63.5 kg Ian Iqbal MD Work Phone: [facility] 06-03-2024 10:55-0400 Diastolic blood pressure 56 mm[Hg] Ian Iqbal MD Work Phone: [facility] 06-03-2024 10:55-0400 Heart rate 76 /min Ian Iqbal MD Work Phone: [facility] 06-03-2024 10:55-0400 Respiratory rate 20 /min Ian Iqbal MD Work Phone: [facility] 06-03-2024 10:55-0400 Systolic blood pressure 104 mm[Hg] Ian Iqbal MD Work Phone: [facility] 05-07-2024 10:21-0500 Body height 165.1 cm Kimmie Jazzmor [employer] Work Phone: [facility] 05-07-2024 10:21-0500 Body mass index (BMI) [Ratio] 24.3 kg/m2 Kimmie Gillmor [employer] Work Phone: [facility] 05-07-2024 10:21-0500 Body weight 66.22 kg Kimmie Gillmor [employer] Work Phone: [facility] 05-07-2024 10:21-0500 Diastolic blood pressure 70 mm[Hg] Kimmie Gillmor [employer] Work Phone: [facility] 05-07-2024 10:21-0500 Heart rate 69 /min Kimmie Gillmor [employer] Work Phone: [facility] 05-07-2024 10:21-0500 SaO2% (BldA) [Mass fraction] 97 % Kimmie Gillmor [employer] Work Phone: [facility] 05-07-2024 10:21-0500 Systolic blood pressure 122 mm[Hg] Kimmie Gillmor [employer] Work Phone: [facility] 03-30-2024 13:18-0500 Diastolic blood pressure 59 mm[Hg] Kimmie Gillmor [employer] Work Phone: [facility] 03-30-2024 13:18-0500 Heart rate 71 /min Kimmie Gillmor [employer] Work Phone: [facility] 03-30-2024 13:18-0500 Systolic blood pressure 112 mm[Hg] Kimmie Gillmor [employer] Work Phone: [facility] 01-16-2024 10:52-0400 Diastolic blood pressure 74 mm[Hg] Kimmie Gillmor [employer] Work Phone: [facility] 01-16-2024 10:52-0400 Heart rate 80 /min Kimmie Gillmor [employer] Work Phone: [facility] 01-16-2024 10:52-0400 SaO2% (BldA) [Mass fraction] 97 % Kimmie Gillmor [employer] Work Phone: [facility] 01-16-2024 10:52-0400 Systolic blood pressure 138 mm[Hg] Kimmie Gillmor [employer] Work Phone: [facility] 01-06-2024 13:00-0400 Body height 165.1 cm Kimmie Gillmor [employer] Work Phone: [facility] 01-06-2024 13:00-0400 Body mass index (BMI) [Ratio] 23.8 kg/m2 Kimmie Gillmor [employer] Work Phone: [facility] 01-06-2024 13:00-0400 Body weight 64.86 kg Kimmie Gillmor [employer] Work Phone: [facility] 01-06-2024 13:00-0400 Diastolic blood pressure 70 mm[Hg] Kimmie Gillmor [employer] Work Phone: [facility] 01-06-2024 13:00-0400 Heart rate 67 /min Kimmie Gillmor [employer] Work Phone: [facility] 01-06-2024 13:00-0400 SaO2% (BldA) [Mass fraction] 97 % Kimmie Gillmor [employer] Work Phone: [facility] 01-06-2024 13:00-0400 Systolic blood pressure 132 mm[Hg] Kimmie Gillmor [employer] Work Phone: [facility] 12-16-2023 13:02-0400 Body height 165.1 cm Justus GEORGES Work Phone: [facility] 12-16-2023 13:02-0400 Body mass index (BMI) [Ratio] 22.63 kg/m2 [facility] Work Phone: [facility] 12-16-2023 13:02-0400 Body weight 61.69 kg [facility] Work Phone: [facility] 11-15-2023 10:36-0400 Body height 165.1 cm [facility] Work Phone: [facility] 11-15-2023 10:36-0400 Body mass index (BMI) [Ratio] 22.63 kg/m2 [facility] Work Phone: [facility] 11-15-2023 10:36-0400 Body weight 61.69 kg [facility] Work Phone: [facility] 11-12-2023 09:22-0400 Body height 165.1 cm Kimmie Calvertr [employer] Work Phone: [facility] 11-12-2023 09:22-0400 Body mass index (BMI) [Ratio] 22.63 kg/m2 Kimmie Jazzmor [employer] Work Phone: [facility] 11-12-2023 09:22-0400 Body weight 61.69 kg Kimmie Gillmor [employer] Work Phone: [facility] 11-12-2023 09:22-0400 Diastolic blood pressure 73 mm[Hg] Kimmie Gillmor [employer] Work Phone: [facility] 11-12-2023 09:22-0400 Heart rate 69 /min Kimmie Jazzmor [employer] Work Phone: [facility] 11-12-2023 09:22-0400 Systolic blood pressure 121 mm[Hg] Kimmie Gillmor [employer] Work Phone: [facility] 07-03-2023 11:06-0400 Body height 170.2 cm Ellen Verhoff PA-C Work Phone: [facility] 07-03-2023 11:06-0400 Body mass index (BMI) [Ratio] 21.93 kg/m2 Ellen Verhoff PA-C Work Phone: [facility] 07-03-2023 11:06-0400 Body weight 63.5 kg Ellen Verhoff PA-C [facility] 07-03-2023 11:06-0400 Diastolic blood pressure 75 mm[Hg] Ellen Verhoff PA-C [facility] 07-03-2023 11:06-0400 Heart rate 75 /min Ellen Verhoff PA-C Work Phone: [facility] 07-03-2023 11:06-0400 SaO2% (BldA) [Mass fraction] 98 % Ellen Verhoff PA-C [facility] 07-03-2023 11:06-0400 Systolic blood pressure 110 mm[Hg] Ellen Verhoff PA-C Work Phone: [facility] 03-13-2023 07:30-0500 Body temperature 98.2 [degF] [employer]NAGER [employer] Darin Shammo Work Phone: [facility] 03-13-2023 07:30-0500 Diastolic blood pressure 73 mm[Hg] MANAGER [employer] Darin Shammo Work Phone: [facility] 03-13-2023 07:30-0500 Heart rate 87 /min [employer] Darin Shammo Work Phone: [facility] 03-13-2023 07:30-0500 Respiratory rate 16 /min [employer]NAGER [employer] Darin Shammo Work Phone: [facility] 03-13-2023 07:30-0500 SaO2% (BldA) [Mass fraction] 97 % [employer]NA[employer] Darin Shammo Work Phone: [facility] 03-13-2023 07:30-0500 Systolic blood pressure 104 mm[Hg] MANAGER [employer] Darin Shammo Work Phone: [facility] 03-11-2023 08:53-0500 Body weight 21.7 kg [employer]NAGER [employer] Darin Shammo Work Phone: [facility] 03-10-2023 10:39-0500 Body height 172.72 cm MANAGER [employer] Darin Shammo Work Phone: [facility] 2022 07:30-0400 Body temperature 97.4 [degF] [employer]NAGER [employer] Darin Shammo Work Phone: [facility] 2022 07:30-0400 Diastolic blood pressure 85 mm[Hg] MANAGER [employer] Darin Shammo Work Phone: [facility] 2022 07:30-0400 Heart rate 114 /min [employer] Darin Shammo Work Phone: [facility] 2022 07:30-0400 SaO2% (BldA) [Mass fraction] 100 % [employer]NA[employer] Darin Shammo Work Phone: [facility] 2022 07:30-0400 Systolic blood pressure 126 mm[Hg] MANAGER [employer] Darin Shammo Work Phone: [facility] 10-02-2022 20:12-0400 Respiratory rate 16 /min MANAGER [employer] Darin Shammo Work Phone: [facility] 10-01-2022 15:18-0400 Body height 172.72 cm MANAGER [employer] Darin Shammo Work Phone: [facility] 10-01-2022 09:00-0400 Body weight 70.76 kg [employer]NAGER [employer] Darin Shammo Work Phone: [facility] 08-05-2022 15:21-0400 Diastolic blood pressure 70 mm[Hg] MANAGER [employer] Darin Shammo Work Phone: [facility] 08-05-2022 15:21-0400 Heart rate 79 /min MANAGER [employer] Darin Shammo Work Phone: [facility] 08-05-2022 15:21-0400 Respiratory rate 16 /min [employer]NAGER [employer] Darin Shammo Work Phone: [facility] 08-05-2022 15:21-0400 SaO2% (BldA) [Mass fraction] 98 % [employer]NAGER [employer] Darin Shammo Work Phone: [facility] 08-05-2022 15:21-0400 Systolic blood pressure 111 mm[Hg] MANAGER [employer] Darin Shammo Work Phone: [facility] 08-05-2022 07:30-0400 Body temperature 97.6 [degF] MANAGER [employer] Darin Shammo Work Phone: [facility] 08-03-2022 12:02-0400 Body height 170.18 cm MANAGER [employer] Darin Shammo Work Phone: [facility] 08-03-2022 12:02-0400 Body weight 72.57 kg MANAGER [employer] Darin Shammo Work Phone: [facility] 06-13-2022 07:30-0400 Body temperature 98 [degF] MANAGER [employer] Darin Shammo Work Phone: [facility] 06-13-2022 07:30-0400 Diastolic blood pressure 68 mm[Hg] MANAGER [employer] Darin Shammo Work Phone: [facility] 06-13-2022 07:30-0400 Heart rate 76 /min MANAGER [employer] Darin Shammo Work Phone: [facility] 06-13-2022 07:30-0400 Respiratory rate 18 /min MANAGER [employer] Darin Shammo Work Phone: [facility] 06-13-2022 07:30-0400 SaO2% (BldA) [Mass fraction] 96 % MANAGER [employer] Darin Shammo Work Phone: [facility] 06-13-2022 07:30-0400 Systolic blood pressure 112 mm[Hg] [facility] Darin Shammo Work Phone: [facility] 06-12-2022 20:00-0400 Body height 170.18 cm MANAGER [employer]- Darin Shammo Work Phone: [facility] 06-12-2022 20:00-0400 Body weight 68.94 kg [facility]- Darin Shammo Work Phone: [facility] 05-22-2022 13:15-0500 Body height 170.2 cm Cherise Ramirez DMD, MD [facility] 05-22-2022 13:15-0500 Body mass index (BMI) [Ratio] 23.49 kg/m2 Cherise Ramirez DMD, MD [facility] 05-22-2022 13:15-0500 Body weight 68.04 kg Cherise Ramirez DMD, MD Work Phone: [facility] Encounters Encounter Date Encounter Type Care Provider Facility Start: 10-12-2024 End: 10-12-2024 ambulatory DYLAN LITTLE Facility:[facility] Start: 10-12-2024 End: 10-12-2024 Patient encounter procedure Dylan Little Therapist Work Phone: [facility] Comment on above: No-show for appointm ent (Primary Dx) Start: 10-12-2024 End: 10-12-2024 Telemedicine consultation with patient Dylan Little Therapist Work Phone: [facility] Start: 10-08-2024 End: 10-08-2024 Telephone encounter Kika Pulido PROFESSOR OF BIOLOGY [facility] Comment on above: per Referring provid er; PT Start: 09-25-2024 End: 09-25-2024 Patient encounter procedure [facility] Lucero [facility] Comment on above: Defective dental res toration (Primary Dx); Dental caries on pit and fissure surface penetrating into pulp Start: 09-02-2024 End: 09-02-2024 Patient encounter procedure Dago Vallejo DDS Work Phone: [facility] Comment on above: Caries (Primary Dx); Encounter for dental examination Start: 09-02-2024 End: 09-02-2024 Patient encounter status Dago Vallejo DDS Work Phone: [facility] [employer] Work Phone: Start: 09-01-2024 End: 09-01-2024 Patient encounter procedure Elizabeth Lucero [facility] Comment on above: Caries (Primary Dx) Start: 08-07-2024 End: 08-07-2024 ambulatory MANPREET AGUEDA Facility:[facility] Start: 07-31-2024 End: 07-31-2024 Bamboo flowsheet Kika Brink PROFESSOR OF BIOLOGY [facility] Start: 07-31-2024 End: 07-31-2024 Bamboo flowsheet Kika Brink PROFESSOR OF BIOLOGY [facility] Start: 07-31-2024 End: 07-31-2024 ambulatory Kika Brink PROFESSOR OF BIOLOGY [facility] Comment on above: Rotator cuff impinge ment syndrome of right shoulder (Primary Dx); Shoulder joint hypermobility Start: 07-30-2024 End: 07-30-2024 Telephone encounter Ian Iqbal MD Work Phone: Neurology Comment on above: Orders Start: 07-29-2024 End: 07-29-2024 Bamboo flowsheet Kika Brink PROFESSOR OF BIOLOGY [facility] Start: 07-29-2024 End: 07-29-2024 Bamboo flowsheet Kika Brink PROFESSOR OF BIOLOGY [facility] Start: 07-29-2024 End: 07-29-2024 ambulatory Kika Brink PROFESSOR OF BIOLOGY [facility] Comment on above: Rotator cuff impinge ment syndrome of right shoulder (Primary Dx); Shoulder joint hypermobility Start: 07-27-2024 End: 07-27-2024 Bamboo flowsheet Kika Brink PROFESSOR OF BIOLOGY [facility] Start: 07-27-2024 End: 07-27-2024 Bamboo flowsheet Kika Brink PROFESSOR OF BIOLOGY [facility] Start: 07-27-2024 End: 07-27-2024 ambulatory Kika Brink PROFESSOR OF BIOLOGY [facility] Comment on above: Rotator cuff impinge ment syndrome of right shoulder (Primary Dx); Shoulder joint hypermobility Start: 07-24-2024 End: 07-24-2024 Bamboo flowsheet Kika Brink PROFESSOR OF BIOLOGY [facility] Start: 07-24-2024 End: 07-24-2024 Bamboo flowsheet Kika Brink PROFESSOR OF BIOLOGY [facility] Start: 07-24-2024 End: 07-24-2024 ambulatory Kika Patrickink PROFESSOR OF BIOLOGY [facility] Comment on above: Rotator cuff impinge ment syndrome of right shoulder (Primary Dx); Shoulder joint hypermobility Start: 07-22-2024 End: 07-22-2024 Bamboo flowsheet Kika Brink PROFESSOR OF BIOLOGY [facility] Start: 07-22-2024 End: 07-22-2024 Bamboo flowsheet Kika Brink PROFESSOR OF BIOLOGY [facility] Start: 07-22-2024 End: 07-22-2024 ambulatory Kika Brink PROFESSOR OF BIOLOGY [facility] Comment on above: Rotator cuff impinge ment syndrome of right shoulder (Primary Dx); Shoulder joint hypermobility Start: 07-20-2024 End: 07-20-2024 Bamboo flowsheet Kika Brink PROFESSOR OF BIOLOGY [facility] Start: 07-20-2024 End: 07-20-2024 Bamboo flowsheet Kika Patrickink PROFESSOR OF BIOLOGY [facility] Start: 07-20-2024 End: 07-20-2024 ambulatory Kika Patrickink PROFESSOR OF BIOLOGY [facility] Comment on above: Rotator cuff impinge ment syndrome of right shoulder (Primary Dx); Shoulder joint hypermobility Start: 07-17-2024 End: 07-17-2024 ambulatory Mckinley Funk PROFESSOR OF BIOLOGY [facility] Comment on above: Rotator cuff impinge ment syndrome of right shoulder (Primary Dx); Shoulder joint hypermobility Start: 07-14-2024 End: 07-14-2024 Bamboo flowsheet Kika Brink PROFESSOR OF BIOLOGY [facility] Start: 07-14-2024 End: 07-14-2024 Bamboo flowsheet Kika Brink PROFESSOR OF BIOLOGY [facility] Start: 07-14-2024 End: 07-14-2024 ambulatory Kika Brink PROFESSOR OF BIOLOGY [facility] Comment on above: Rotator cuff impinge ment syndrome of right shoulder (Primary Dx); Shoulder joint hypermobility Start: 06-30-2024 End: 07-13-2024 Telephone encounter Brianpascual Seymour PT Work Phone: [facility] Comment on above: PT Auth received; fu Start: 06-12-2024 End: 06-12-2024 Bamboo flowsheet Kika Brink PROFESSOR OF BIOLOGY [facility] Start: 06-12-2024 End: 06-12-2024 Bamboo flowsheet Kika Brink PROFESSOR OF BIOLOGY [facility] Start: 06-12-2024 End: 06-12-2024 ambulatory Kika Brink PROFESSOR OF BIOLOGY [facility] Comment on above: Rotator cuff impinge ment syndrome of right shoulder (Primary Dx); Shoulder joint hypermobility Start: 06-11-2024 End: 06-15-2024 ambulatory UNKNOWN PROVIDER Facility:[facility] Start: 06-10-2024 End: 06-10-2024 Bamboo flowsheet Kika Brink PROFESSOR OF BIOLOGY [facility] Start: 06-10-2024 End: 06-10-2024 Bamboo flowsheet Kika Brink PROFESSOR OF BIOLOGY [facility] Start: 06-10-2024 End: 06-10-2024 ambulatory Kika Brink PROFESSOR OF BIOLOGY [facility] Comment on above: Rotator cuff impinge ment syndrome of right shoulder (Primary Dx); Shoulder joint hypermobility Start: 06-08-2024 End: 06-08-2024 ambulatory Kika Brink PROFESSOR OF BIOLOGY [facility] Comment on above: Rotator cuff impinge ment syndrome of right shoulder (Primary Dx); Shoulder joint hypermobility Start: 06-05-2024 End: 06-05-2024 ambulatory KIKAROBERT PULIDO Not Available Start: 06-03-2024 End: 06-03-2024 ambulatory IAN IQBAL Facility:[facility] Start: 06-03-2024 End: 06-03-2024 Patient encounter procedure Ian Iqbal MD Work Phone: [facility] Comment on above: Pain in other joint (Primary Dx); Myalgia Start: 05-27-2024 End: 05-27-2024 ambulatory Kika Brink PROFESSOR OF BIOLOGY [facility] Comment on above: Rotator cuff impinge ment syndrome of right shoulder (Primary Dx); Shoulder joint hypermobility Start: 05-25-2024 End: 05-25-2024 ambulatory KIKA PULIDO Not Available Start: 05-21-2024 End: 05-21-2024 Bamboo flowsheet Mckinley Funk PROFESSOR OF BIOLOGY [facility] Start: 05-21-2024 End: 05-21-2024 Bamboo flowsheet Mckinley Funk PROFESSOR OF BIOLOGY [facility] Start: 05-21-2024 End: 05-21-2024 ambulatory Mckinley Funk PROFESSOR OF BIOLOGY [facility] Comment on above: Rotator cuff impinge ment syndrome of right shoulder (Primary Dx); Shoulder joint hypermobility Start: 05-18-2024 End: 05-19-2024 Telephone encounter Brian Seymour PT Work Phone: [facility] Comment on above: re: Auth received fo r PT; FU Start: 05-07-2024 End: 05-07-2024 Office outpatient visit 25 minutes Kimmie Luz DIGITAL AD TRAFFICKER Work Phone: [facility] Comment on above: Cervicalgia (Primary Dx); Paresthesia; Anesthesia of skin Start: 05-07-2024 End: 05-07-2024 ambulatory KIMMIE LUZ Not Available Start: 05-06-2024 End: 05-06-2024 Bamboo flowsheet Brian Seymour PT Work Phone: [facility] Start: 05-06-2024 End: 05-06-2024 Bamboo flowsheet Brian Seymour PT Work Phone: [facility] Start: 05-06-2024 End: 05-06-2024 ambulatory Brian Seymour PT Work Phone: [facility] Comment on above: Rotator cuff impinge ment syndrome of right shoulder (Primary Dx); Shoulder joint hypermobility Start: 05-04-2024 End: 05-04-2024 Bamboo flowsheet Kika Pulido PROFESSOR OF BIOLOGY [facility] Start: 05-04-2024 End: 05-04-2024 Bamboo flowsheet Kika Pulido PROFESSOR OF BIOLOGY [facility] Start: 05-04-2024 End: 05-04-2024 ambulatory Kika uPlido PROFESSOR OF BIOLOGY [facility] Comment on above: Rotator cuff impinge ment syndrome of right shoulder (Primary Dx); Shoulder joint hypermobility Start: 04-29-2024 End: 04-29-2024 Bamboo flowsheet Kika Brink PROFESSOR OF BIOLOGY [facility] Start: 04-29-2024 End: 04-29-2024 Bamboo flowsheet Kika Brink PROFESSOR OF BIOLOGY [facility] Start: 04-29-2024 End: 04-29-2024 ambulatory Kika Brink PROFESSOR OF BIOLOGY [facility] Comment on above: Rotator cuff impinge ment syndrome of right shoulder (Primary Dx); Shoulder joint hypermobility Start: 04-27-2024 End: 04-27-2024 Bamboo flowsheet Kika Brink PROFESSOR OF BIOLOGY [facility] Start: 04-27-2024 End: 04-27-2024 Bamboo flowsheet Kika Brink PROFESSOR OF BIOLOGY [facility] Start: 04-27-2024 End: 04-27-2024 ambulatory Kika Patrickink PROFESSOR OF BIOLOGY [facility] Comment on above: Rotator cuff impinge ment syndrome of right shoulder (Primary Dx); Shoulder joint hypermobility Start: 04-24-2024 End: 04-24-2024 Bamboo flowsheet Kika Brink PROFESSOR OF BIOLOGY [facility] Start: 04-24-2024 End: 04-24-2024 Bamboo flowsheet Kika Brink PROFESSOR OF BIOLOGY [facility] Start: 04-24-2024 End: 04-24-2024 ambulatory KIKA PULIDO Not Available Start: 04-22-2024 End: 04-22-2024 Bamboo flowsheet Brian Seymour PT Work Phone: [facility] Start: 04-22-2024 End: 04-22-2024 Bamboo flowsheet Brian Seymour PT Work Phone: [facility] Start: 04-22-2024 End: 04-22-2024 ambulatory Brian Seymour PT Work Phone: [facility] Comment on above: Rotator cuff impinge ment syndrome of right shoulder (Primary Dx); Shoulder joint hypermobility Start: 04-20-2024 End: 04-20-2024 Bamboo flowspatti Seymour PT Work Phone: [facility] Start: 04-20-2024 End: 04-20-2024 Bamboo flowsheet Brian Seymour PT Work Phone: [facility] Start: 04-20-2024 End: 04-20-2024 ambulatory Brian Seymour PT Work Phone: [facility] Comment on above: Rotator cuff impinge ment syndrome of right shoulder (Primary Dx); Shoulder joint hypermobility Start: 04-16-2024 End: 04-16-2024 Telephone encounter Kika Pulido PROFESSOR OF BIOLOGY [facility] Comment on above: re: NS PT today Start: 04-14-2024 End: 04-14-2024 Bamboo flowspatti Seymour PT Work Phone: [facility] Start: 04-14-2024 End: 04-14-2024 Bamboo flowspatti Seymour PT Work Phone: [facility] Start: 04-14-2024 End: 04-14-2024 ambulatory Brian Seymour PT Work Phone: [facility] Comment on above: Rotator cuff impinge ment syndrome of right shoulder Start: 04-09-2024 End: 04-13-2024 Patient encounter procedure Michael Chavis DDS Work Phone: [facility] Start: 04-09-2024 End: 04-13-2024 ambulatory UNKNOWN PROVIDER Facility:[facility] Start: 04-06-2024 End: 04-06-2024 Bamboo flowsheet Justus Leggett PA Work Phone: [facility] Start: 04-06-2024 End: 04-06-2024 Bamboo flowsheet Justus Leggett PA Work Phone: [facility] Start: 04-06-2024 End: 04-06-2024 ambulatory JUSTUS LEGGETT Not Available Start: 03-30-2024 End: 03-30-2024 Bamboo flowsheet Kimmie Schulzdanya DIGITAL AD TRAFFICKER Work Phone: [facility] Start: 03-30-2024 End: 03-30-2024 Bamboo flowsheet Kimmie Luz DIGITAL AD TRAFFICKER Work Phone: [facility] Start: 03-30-2024 End: 03-30-2024 Patient encounter procedure Kimmie Calvertana luisa DIGITAL AD TRAFFICKER Work Phone: [facility] Comment on above: Cervicalgia Start: 03-30-2024 End: 03-30-2024 ambulatory KIMMIE LUZ Not Available Start: 03-17-2024 End: 03-17-2024 Telephone encounter To Be Assigned [facility] Comment on above: [place] Pre auth Start: 03-09-2024 End: 03-09-2024 Bamboo flowsheet Brian Seymour PT Work Phone: [facility] Start: 03-09-2024 End: 03-09-2024 Bamboo flowsheet Brian Seymour PT Work Phone: [facility] Start: 03-09-2024 End: 03-09-2024 ambulatory Brian Seymour PT Work Phone: [facility] Comment on above: Rotator cuff impinge ment syndrome of right shoulder (Primary Dx); Shoulder joint hypermobility Start: 03-02-2024 End: 03-02-2024 Bamboo flowsheet Mckinley Funk PROFESSOR OF BIOLOGY [facility] Start: 03-02-2024 End: 03-02-2024 Bamboo flowsheet Mckinley Funk PROFESSOR OF BIOLOGY [facility] Start: 03-02-2024 End: 03-02-2024 ambulatory Mckinley Funk PROFESSOR OF BIOLOGY [facility] Comment on above: Rotator cuff impinge ment syndrome of right shoulder (Primary Dx); Shoulder joint hypermobility Start: 02-28-2024 End: 02-28-2024 Bamboo flowsheet Mckinley Funk PROFESSOR OF BIOLOGY [facility] Start: 02-28-2024 End: 02-28-2024 Bamboo flowsheet Mckinley Funk PROFESSOR OF BIOLOGY [facility] Start: 02-28-2024 End: 02-28-2024 ambulatory Mckinley Funk PROFESSOR OF BIOLOGY [facility] Comment on above: Rotator cuff impinge ment syndrome of right shoulder (Primary Dx); Shoulder joint hypermobility Start: 02-26-2024 End: 02-26-2024 Bamboo flowsheet Brian Seymour PT Work Phone: [facility] Start: 02-26-2024 End: 02-26-2024 Bamboo flowsheet Brian Oneilton PT Work Phone: [facility] Start: 02-26-2024 End: 02-26-2024 ambulatory Brian Seymour PT Work Phone: [facility] Comment on above: Rotator cuff impinge ment syndrome of right shoulder (Primary Dx); Shoulder joint hypermobility Start: 02-19-2024 End: 02-19-2024 Telephone encounter Josef Palmer DDS Work Phone: [facility] Comment on above: [place] Prior Auth Start: 01-23-2024 ambulatory UNKNOWN PROVIDER Facili ty:[facility] Start: 01-23-2024 End: 01-23-2024 Patient encounter procedure Marlin John DDS Work Phone: [facility] Start: 01-16-2024 End: 01-16-2024 Bamboo flowsheet Kimmie Luz DIGITAL AD TRAFFICKER Work Phone: [facility] Start: 01-16-2024 End: 01-16-2024 Bamboo flowsheet Kimmie Luz DIGITAL AD TRAFFICKER Work Phone: [facility] Start: 01-16-2024 End: 01-16-2024 Clinical Support Kimmie Luz DIGITAL AD TRAFFICKER Work Phone: [facility] Comment on above: Myalgia (Primary Dx) Start: 01-16-2024 End: 01-16-2024 ambulatory KIMMIE GILLMOR Not Available Start: 01-08-2024 End: 01-08-2024 Clinisync Result Encounter Kimmie Calvertr DIGITAL AD TRAFFICKER Work Phone: [facility] Unsolicited Start: 01-08-2024 End: 01-08-2024 Clinisync Result Encounter Kimmie Calvertr DIGITAL AD TRAFFICKER Work Phone: [facility] Unsolicited Start: 01-06-2024 End: 01-06-2024 Bamboo flowsheet Kimmie Schulzmor DIGITAL AD TRAFFICKER Work Phone: [facility] Start: 01-06-2024 End: 01-06-2024 Bamboo flowsheet Kimmie Schulzmor DIGITAL AD TRAFFICKER Work Phone: [facility] Start: 01-06-2024 End: 01-06-2024 Office outpatient visit 25 minutes Kimmie Calvertr DIGITAL AD TRAFFICKER Work Phone: [facility] [employer] [facility] Comment on above: Other chronic pain ( Primary Dx); Cervicalgia; Muscle spasm; Paresthesia of skin Start: 01-06-2024 End: 01-06-2024 ambulatory KIMMIE CALVERTR Not Available Start: 12-24-2023 End: 01-02-2024 Telephone encounter Brian Seymour PT Work Phone: [facility] [...] Kurtis Laurent, PT.) Start: 12-16-2023 End: 12-16-2023 [employer] Justus Leggett PA Work Phone: [facility] Start: 12-16-2023 End: 12-16-2023 Bamboo Private Companypatti Leggett PA Work Phone: [facility] Start: 12-16-2023 End: 12-16-2023 Patient encounter procedure Justus GEORGES Work Phone: [facility] Comment on above: Rotator cuff impinge ment syndrome of right shoulder (Primary Dx); Shoulder joint hypermobility Start: 12-16-2023 End: 12-16-2023 ambulatory Brandon Ca Facility:[facility] Start: 12-06-2023 End: 12-06-2023 Bamboo flowsheet Mckinley Funk PROFESSOR OF BIOLOGY [facility] Start: 12-06-2023 End: 12-06-2023 Bamboo flowsheet Mckinley Funk PROFESSOR OF BIOLOGY [facility] Start: 12-06-2023 End: 12-06-2023 ambulatory Mckinley Funk PROFESSOR OF BIOLOGY [facility] Comment on above: Rotator cuff impinge ment syndrome of right shoulder (Primary Dx); Shoulder joint hypermobility Start: 11-29-2023 End: 11-29-2023 Bamboo flowsheet Mckinley Funk PROFESSOR OF BIOLOGY [facility] Start: 11-29-2023 End: 11-29-2023 Bamboo flowsheet Mckinley Funk PROFESSOR OF BIOLOGY [facility] Start: 11-29-2023 End: 11-29-2023 ambulatory Mckinley Funk PROFESSOR OF BIOLOGY [facility] Comment on above: Rotator cuff impinge ment syndrome of right shoulder (Primary Dx); Shoulder joint hypermobility Start: 11-26-2023 End: 11-26-2023 Bamboo flowsheet Tawanna Laurent PT [facility] Start: 11-26-2023 End: 11-26-2023 Bamboo flowsheet Tawanna Laurent PT [facility] Start: 11-26-2023 End: 11-26-2023 ambulatory Tawanna Laurent PT [facility] Comment on above: Rotator cuff impinge ment syndrome of right shoulder (Primary Dx); Shoulder joint hypermobility Start: 11-22-2023 ambulatory UNKNOWN PROVIDER Facili ty:[facility] Start: 11-15-2023 End: 11-15-2023 Bamboo flowsheet Justus GEORGES Work Phone: [facility] Start: 11-15-2023 End: 11-15-2023 Bamboo flowsheet Justus Leggett PA Work Phone: [facility] Start: 11-15-2023 End: 11-15-2023 ambulatory JUSTUS LEGGETT Not Available Start: 11-15-2023 End: 11-15-2023 Patient encounter procedure Justus Leggett JOSÉ MANUEL Work Phone: [facility] Comment on above: Rotator cuff impinge ment syndrome of right shoulder (Primary Dx); Shoulder joint hypermobility Start: 11-13-2023 ambulatory UNKNOWN PROVIDER Facili ty:[facility] Start: 11-12-2023 End: 11-12-2023 Bamboo flowsheet Kimmie Luz DIGITAL AD TRAFFICKER Work Phone: [facility] Start: 11-12-2023 End: 11-12-2023 Bamboo flowsheet Kimmie Luz DIGITAL AD TRAFFICKER Work Phone: [facility] Start: 11-12-2023 End: 11-12-2023 ambulatory KIMMIE LUZ Not Available Start: 11-12-2023 End: 11-12-2023 Office outpatient visit 25 minutes Kimmie Luz DIGITAL AD TRAFFICKER Work Phone: [facility] Comment on above: Cervicalgia (Primary Dx); Paresthesia of skin; Chronic neck pain; Anesthesia of skin; Myalgia; Muscle spasm; TMJ dysfunction Start: 07-24-2023 End: 07-26-2023 ambulatory UNKNOWN PROVIDER Facility:[facility] Start: 07-24-2023 End: 07-26-2023 Patient encounter procedure Onur Menezeszara DDS Work Phone: [facility] Start: 07-03-2023 End: 08-17-2023 ambulatory ELLEN [facility] Start: 07-03-2023 End: 07-03-2023 ambulatory ELLEN [facility] Start: 07-03-2023 End: 07-03-2023 Office outpatient new 45 minutes Ellen Paul PA-C Work Phone: [phone] [place] [address] - [facility] Comment on above: Cervical radiculopat hy (Primary Dx); Cervical spine pain; Numbness of tongue Start: 05-31-2023 End: 06-03-2023 Patient encounter procedure Jerica Preciado Yu DDS Other Phone: [facility] Start: 03-09-2023 End: 03-13-2023 Evaluation and management of inpatient MANAGER PROGRESSIVE CARE-BC Darin Montoya Work Phone: [facility] Work Phone: Start: 02-22-2023 End: 02-25-2023 Patient encounter procedure Onur Davila DDS Work Phone: [facility] Start: 02-06-2023 End: 02-11-2023 Patient encounter procedure Onur Davila DDS Work Phone: [facility] Start: 12-28-2022 Telephone encounter Alfonzo grant DDS Work Phone: [facility] Comment on above: Dental Start: 11-16-2022 End: 11-20-2022 Patient encounter procedure Alfonzo Mccord DDS Work Phone: [facility] Start: 10-29-2022 End: 11-01-2022 Patient encounter procedure Alfonzo Mccord DDS Work Phone: [facility] Comment on above: Poor oral hygiene (P rimary Dx) Start: 10-11-2022 End: 10-15-2022 Patient encounter procedure Javed Mendez DDS Work Phone: [facility] Start: 10-08-2022 Orders Only Erum rivera DDS Work Phone: [facility] Start: 10-07-2022 Letter encounter Erum matthews DDS Work Phone: [facility] Start: 09-28-2022 End: 2022 Evaluation and management of inpatient MANAGER PROGRESSIVE CARE-BC Darin Shammo Work Phone: [facility] [place] [address] Work Phone: Start: 09-27-2022 End: 10-02-2022 Patient encounter procedure Alfonzo Mccord DDS Work Phone: [facility] Start: 09-05-2022 End: 09-10-2022 Patient encounter procedure Erma Riley DDS Work Phone: [facility] Start: 08-03-2022 Registered Recurring MANAGER PROGRESSIVE CARE-BC Jane rincon Shammo Work Phone: [facility] Start: 08-03-2022 End: 08-05-2022 Evaluation and management of inpatient MANAGER PROGRESSIVE CARE-BC Darin Shammo Work Phone: [address] Work Phone: Start: 07-16-2022 End: 07-18-2022 Patient encounter procedure Esther Menard DMD Work Phone: [facility] Start: 07-05-2022 End: 07-05-2022 Patient encounter procedure Erum Laboy DDS Work Phone: [facility] Comment on above: Arrived Start: 06-18-2022 End: 06-18-2022 Telemedicine consultation with patient Cherise Ramirez DMD, MD Work Phone: [facility] Comment on above: Myofascial pain (Asya ashley Dx) Start: 06-14-2022 End: 07-11-2022 ambulatory Orason Start: 06-14-2022 End: 06-14-2022 Office outpatient new 45 minutes Erum Laboy DDS Work Phone: [facility] Comment on above: Myalgia of masticati on muscle (Primary Dx); Myalgia of muscle of neck; Arthralgia of right temporomandibular joint Start: 06-12-2022 End: 06-13-2022 Evaluation and management of inpatient MANAGER PROGRESSIVE CARE-BC Darin Shammo Work Phone: [facility] Work Phone: Start: 06-12-2022 End: 06-12-2022 ambulatory JOSÉ MANUEL MCKEON . Facility:[facility] Start: 06-08-2022 Clinical Support Shantal Duarte [facility] Start: 06-08-2022 End: 06-08-2022 Follow-up encounter Cherise Ramirez DMD, MD Work Phone: [facility] Start: 06-08-2022 End: 06-08-2022 Patient encounter procedure Cherise Ramirez DMD, MD Work Phone[facility] Comment on above: Myofascial pain (Asya ashley Dx) Start: 06-05-2022 Telephone encounter Cherise gomes DMD, MD Work Phone: [facility] Comment on above: Urgent TMJ Symptoms Start: 06-04-2022 End: 06-05-2022 ambulatory DARIN SHAMMO Facility:[facility] Start: 06-04-2022 End: 06-04-2022 ambulatory DARIN SHAMMO Facility:[facility] Start: 05-28-2022 End: 05-28-[address] JUAN MADRIGAL Facility:[facility] Start: 05-22-2022 End: 05-22-2022 Patient encounter procedure Cherise Ramirez DMD, MD Work Phone: [facility] Comment on above: Myofascial pain (Asya ashley Dx) Start: 04-19-2022 End: 04-20-2022 ambulatory Chu Muñoz Facility:[facility] Start: 04-19-2022 End: 04-19-2022 Patient encounter procedure Chu Muñoz [facility] Start: 01-28-2022 End: 01-28-2022 ambulatory PORTER HICKS Facility:[facility] Procedures Date Procedure Procedure Detail Performing Clinician Start: 09-25-2024 ASSESSMENT OF A PATIENT Marilu Treadwell BDS Work Phone: Start: 09-02-2024 14 L RESIN-BASED COM POSITE - 1 SURFACE, POSTERIOR Dago Holguin Valjoni DDS Work Phone: Start: 09-01-2024 End: 09-01-2024 2 CORE BUILDUP, INCLUDING ANY PINS WHEN REQUIRED Manpreet Ramos DDS Work Phone: Start: 03-30-2024 Injection single/hydro electric station operator trigger point 3/> muscles Kimmie Luz DIGITAL AD TRAFFICKER Work Phone: Start: 01-16-2024 [facility] AMB TRIGGER POI NT INJECTION Kimmie Luz DIGITAL AD TRAFFICKER Work Phone: Start: 01-08-2024 ALL C REACTIVE PROTEIN Kimmie Luz DIGITAL AD TRAFFICKER Work Phone: Start: 01-08-2024 [facility] Kimmie hernandez DIGITAL AD TRAFFICKER Work Phone: Start: 05-22-2022 panoramic radiograph ic image Sam Enamorado DMD Work Phone: Plan of Treatment Date Care Activity Detail Author Start: 2052 Shingles (RZV) Vacci ne (1 of 2) Shingles (RZV) Vaccine (1 of 2) [facility] Start: 12-10-2024 DTaP,Tdap and Td Vaccines (7 - Td or Tdap) DTaP,Tdap and Td Vaccines (7 - Td or Tdap) [facility] Start: 11-21-2024 Dental Oral Exam Dental Oral Exam [facility] Start: 11-21-2024 Dental Prophylaxis Dental Prophylaxi s [facility] Start: 11-16-2024 Influenza [facility] Start: 09-14-2024 End: 09-14-2024 Clinical Support 09/14/2024 9:00 AM EDT Clinical Support [facility] [address] [place] [address] Kimmie Luz NP [address] [place], [place] [facility] Start: 09-02-2024 End: 09-02-2024 Patient encounter procedure 09/02/2024 8:45 AM EDT [facility] [address] [place] [phone] Elizabeth Lucero Robert J, DDS [address] [place] [address] [facility] Start: 08-07-2024 End: 08-07-2024 Patient encounter procedure [facility] Station Comment on above: Multiple labs on [facility] e [id number] (CPT ) - HLA I LOW RESOLUTION ONE ANTIGEN EQUIVALENT EACH- is not covered by insurance. Do not proceed with that test Start: 08-07-2024 End: 08-07-2024 Patient encounter procedure 08/07/2024 10:30 AM EDT Office Visit Neurology Pain [address] [place] [address] [place] [address] [place] [address] Pain in other joint [M25.59] Neurology Pain Comment on above: Pain in other joint [M25.59] Start: 07-31-2024 End: 07-31-2024 ambulatory 07/31/2024 11:30 AM EDT Treatment [facility] [address] [facility] [address] [place] [address] Kika Pulido, HUMA [facility] Start: 07-29-2024 End: 07-29-2024 ambulatory 07/29/2024 11:00 AM EDT Treatment [facility] [address] [place] [address] [place] [address] Brian Seymour, PT [address] [place] [address] [place] [address] [facility] Start: 07-27-2024 End: 07-27-2024 ambulatory 07/27/2024 11:30 AM EDT Treatment [facility] [address] [place] [address] [place] [address] Kika Pulido, PROFESSOR OF BIOLOGY [facility] Start: 07-24-2024 End: 07-24-2024 ambulatory [facility] Start: 07-23-2024 End: 07-23-2024 ambulatory 07/23/2024 9:30 AM EDT Treatment [facility] [address] [place] [address] [place] [address] Kika Pulido, PROFESSOR OF BIOLOGY [facility] Start: 07-22-2024 End: 07-22-2024 ambulatory 07/22/2024 11:30 AM EDT Treatment [facility] [address] [place] [address] [place] [address] Kika Pulido, PROFESSOR OF BIOLOGY [facility] Start: 07-20-2024 End: 07-20-2024 ambulatory 07/20/2024 11:30 AM EDT Treatment [facility] [address] [place] [address] [place] [address] Kika Pulido, PROFESSOR OF BIOLOGY [facility] Start: 07-17-2024 End: 07-17-2024 ambulatory 07/17/2024 12:00 PM EDT Treatment [facility] [address] [place] [address] [place] [address] Mckinley Funk PROFESSOR OF BIOLOGY [facility] Start: 07-14-2024 End: 07-14-2024 ambulatory 07/14/2024 12:30 PM EDT Treatment [facility] [address] [place] [address] [place] [address] Kika Pulido, PROFESSOR OF BIOLOGY [facility] Start: 07-02-2024 Adult BMI Screening Adult BMI Screen ing [facility] Start: 07-02-2024 Tobacco Screening Tobacco Screening [facility] Start: 07-02-2024 End: 07-02-2024 Patient encounter procedure 07/02/2024 10:00 AM EDT Office Visit [facility] [address] [place] [phone] Kimmie Luz NP [address] [place] [facility] Start: 06-15-2024 End: 06-15-2024 ambulatory 06/15/2024 11:00 AM EDT Treatment [facility] [address] [place] [address] [place] [address] Brian Seymour, PT [address] [place] [address] [place] [address] [facility] Start: 06-12-2024 End: 06-12-2024 ambulatory 06/12/2024 11:30 AM EDT Treatment [facility] [address] [place] [address] [place] [address] Kika Pulido, PROFESSOR OF BIOLOGY [facility] Start: 06-10-2024 End: 06-10-2024 ambulatory 06/10/2024 11:30 AM EDT Treatment [facility] [address] [place] [address] [place] [address] Kika Pulido PROFESSOR OF BIOLOGY [facility] Start: 06-08-2024 End: 06-08-2024 ambulatory 06/08/2024 11:30 AM EDT Treatment [facility] [address] [place] [address] [place] [address] Kika Pulido PROFESSOR OF BIOLOGY [facility] Start: 06-05-2024 End: 06-05-2024 ambulatory 06/05/2024 11:30 AM EDT Treatment [facility] [address] [place] [address] [place] [address] Kika Pulido, PROFESSOR OF BIOLOGY [facility] Start: 06-03-2024 End: 09-02-2024 25-hydroxyvitamin D3 [Mass/volume] in Serum or Plasma VITAMIN D 25 HYDROXY Lab Routine Pain in other joint Myalgia Expected: 06/03/2024, Expires: 09/02/2024 [facility] Comment on above: Expected: 06/03/2024 , Expires: 09/02/2024 Start: 06-03-2024 End: 09-02-2024 C reactive protein [Mass/volume] in Serum or Plasma C-REACTIVE PROTEIN Lab Routine Pain in other joint Myalgia Expected: 06/03/2024, Expires: 09/02/2024 [facility] Comment on above: Expected: 06/03/2024 , Expires: 09/02/2024 Start: 06-03-2024 End: 09-02-2024 CBC panel - Blood by Automated count COMPLETE BLOOD COUNT Lab Routine Pain in other joint Myalgia Expected: 06/03/2024, Expires: 09/02/2024 [facility] Work Phone: Comment on above: Expected: 06/03/2024 , Expires: 09/02/2024 Start: 06-03-2024 End: 09-02-2024 Comprehensive metabolic 2000 panel - Serum or Plasma COMPREHENSIVE METABOLIC PANEL Lab Routine Pain in other joint Myalgia Expected: 06/03/2024, Expires: 09/02/2024 [facility] Comment on above: Expected: 06/03/2024 , Expires: 09/02/2024 Start: 06-03-2024 End: 09-02-2024 Erythrocyte sedimentation rate SEDIMENTATION RATE, WESTERGREN Lab Routine Pain in other joint Myalgia Expected: 06/03/2024, Expires: 09/02/2024 [facility] Comment on above: Expected: 06/03/2024 , Expires: 09/02/2024 Start: 06-03-2024 End: 09-02-2024 HLA-B27 PCR HLA-B27 PCR Lab Routine Pain in other joint Myalgia Expected: 06/03/2024, Expires: 09/02/2024 [facility] Comment on above: Expected: 06/03/2024 , Expires: 09/02/2024 Start: 06-03-2024 End: 09-02-2024 Nuclear Ab [Presence] in Serum by Immunoassay [facility] BLOOD Lab Routine Pain in other joint Myalgia Expected: 06/03/2024, Expires: 09/02/2024 [facility] Comment on above: Expected: 06/03/2024 , Expires: 09/02/2024 Start: 06-03-2024 End: 06-18-2025 Rheumatoid factor [Units/volume] in Serum or Plasma RHEUMATOID FACTOR Lab Routine Pain in other joint Myalgia Expected: 06/03/2024, Expires: 09/02/2024 [facility] Comment on above: Expected: 06/03/2024 , Expires: 09/02/2024 Start: 06-03-2024 End: 06-03-2024 ambulatory 06/03/2024 11:00 AM EDT Treatment [facility] [address] [place] [address] Kika Pulido PROFESSOR OF BIOLOGY [facility] Start: 06-01-2024 End: 06-01-2024 ambulatory 06/01/2024 11:00 AM EDT Treatment [facility] [address] [place] [address] Brian Seymour, PT [address] [place] [place] [address] [facility] Start: 05-27-2024 End: 05-27-2024 ambulatory 05/27/2024 10:30 AM EDT Treatment [facility] [address] [place] [address] [place] [address] Kika Pulido PTA [facility] Start: 05-25-2024 End: 05-25-2024 ambulatory 05/25/2024 11:30 AM EDT Treatment [facility] [address] [facility] [address] [place] [address] Kika Pulido PTA [facility] Start: 05-21-2024 End: 05-21-2024 ambulatory [facility] Comment on above: Arrived Start: 05-18-2024 End: 05-18-2024 Patient encounter procedure 05/18/2024 11:00 AM EST Office Visit [facility] [address] [place] [address] Justus Leggett PA [address] [place] [address] [facility] Start: 05-07-2024 End: 05-07-2024 Patient encounter procedure 05/07/2024 9:20 AM EST Office Visit [facility] [address] [place] [address] Natty KimmieMANISHA [address] [place] [facility] Start: 05-06-2024 End: 05-06-2024 ambulatory 05/06/2024 10:30 AM EST Treatment [facility] [address] [place] [address] Kika Pulido PROFESSOR OF BIOLOGY [facility] Start: 05-04-2024 End: 05-04-2024 ambulatory 05/04/2024 11:30 AM EST Treatment [facility] [address] [place] [address] Kika Pulido, PROFESSOR OF BIOLOGY [facility] Start: 04-29-2024 End: 04-29-2024 ambulatory 04/29/2024 10:00 AM EST Treatment [facility] [address] [place] [place] [address] Kika Pulido PROFESSOR OF BIOLOGY [facility] Start: 04-27-2024 End: 04-27-2024 ambulatory 04/27/2024 10:00 AM EST Treatment [facility] [address] [place] [place] [address] Kika Pulido PROFESSOR OF BIOLOGY [facility] Start: 04-24-2024 End: 04-24-2024 ambulatory 04/24/2024 10:00 AM EST Treatment [facility] [address] [place] [address] [place] [address] Kika Pulido PROFESSOR OF BIOLOGY [facility] Start: 04-22-2024 End: 04-22-2024 ambulatory [facility] Comment on above: Arrived Start: 04-20-2024 End: 04-20-2024 ambulatory 04/20/2024 11:00 AM EST Treatment [facility] [address] [place] [place] [address] Brian Seymour, PT [address] [place] [address] [facility] Start: 04-16-2024 End: 04-16-2024 ambulatory 04/16/2024 10:00 AM EST Treatment [facility] [address] [facility] [address] [place] [address] Kika Pulido, HUMA [facility] Start: 04-14-2024 End: 04-14-2024 ambulatory 04/14/2024 11:30 AM EST Treatment [facility] [address] [facility] [address] [place] [address] Brian Seymour, PT [address] [facility] [address] [place] [address] Rotator cuff impingement syndrome of right shoulder [facility] Comment on above: Rotator cuff impinge ment syndrome of right shoulder Start: 04-09-2024 End: 04-09-2024 Patient encounter procedure 04/09/2024 1:00 PM EST Procedure Visit [facility] [address] [place] [address] Michael Chavis, DDS [address] [place] [address] [facility] Start: 04-06-2024 End: 04-06-2024 Patient encounter procedure [facility] Comment on above: Arrived Start: 03-30-2024 End: 03-30-2024 Patient encounter procedure 03/30/2024 1:00 PM EST Office Visit [facility] [address] [place] [phone] Kimmie Luz NP [address] [place], [place] Arrived [facility] Comment on above: Arrived Start: 03-16-2024 End: 03-16-2024 Patient encounter procedure 03/16/2024 11:00 AM EST Office Visit [facility] [address] [place] [phone] Justus Leggett PA [address] [place] [address] [facility] Start: 03-13-2024 End: 03-13-2024 ambulatory 03/13/2024 8:30 AM EST Treatment [facility] [address] [place] [address] Kika Pulido, HUMA [facility] Start: 03-09-2024 End: 03-09-2024 ambulatory [facility] Comment on above: Arrived Start: 03-05-2024 End: 03-05-2024 ambulatory [facility] Start: 03-04-2024 End: 03-04-2024 Patient encounter procedure 03/04/2024 4:00 PM EST Office Visit [facility] [place] [address] [place] [address] Kimmie Luz, DIGITAL AD TRAFFICKER [address] [place], [place] [facility] [place] [address] [facility] Start: 03-02-2024 End: 03-02-2024 ambulatory 03/02/2024 9:00 AM EST Treatment [facility] [address] [place] [address] Mckinley Funk, PROFESSOR OF BIOLOGY [facility] Start: 02-28-2024 End: 02-28-2024 ambulatory 02/28/2024 10:30 AM EST Treatment [facility] [address] [place] [address] Mckinley Funk, PROFESSOR OF BIOLOGY [facility] Start: 02-26-2024 End: 02-26-2024 ambulatory 02/26/2024 9:00 AM EST Evaluation [facility] [address] [place] [address] Brian Seymour, PT [address] [place] [address] Rotator cuff impingement syndrome of right shoulder; Shoulder joint hypermobility [facility] Comment on above: Rotator cuff impinge ment syndrome of right shoulder; Shoulder joint hypermobility Start: 01-16-2024 End: 01-16-2024 Clinical Support 01/16/2024 10:40 AM EDT Clinical Support [facility] [address] [place] [phone] Kimmie Luz, DIGITAL AD TRAFFICKER [address] [place] Arrived [facility] [place] [address] [facility] Comment on above: Arrived Start: 01-13-2024 End: 01-13-2024 Clinical Support 01/13/2024 11:00 AM EDT Clinical Support [facility] [place] [address] [place] [address] Kimmie Luz, DIGITAL AD TRAFFICKER [address] [place], [place] [facility] [place] [address] Start: 01-08-2024 End: 01-08-2024 ambulatory 01/08/2024 10:00 AM EDT Treatment [facility] [address] [facility] [address] [place] [address] Tawanna Laurent, PT [facility] Start: 01-06-2024 End: 01-05-2025 C reactive protein [Mass/volume] in Serum or Plasma C-reactive protein Lab Routine Other chronic pain Expected: 01/06/2024 (Approximate), Expires: 01/05/2025 [facility] Comment on above: Expected: 01/06/2024 (Approximate), Expires: 01/05/2025 Start: 01-06-2024 End: 01-05-2025 Creatine kinase [Enzymatic activity/volume] in Serum or Plasma CK Lab Routine Other chronic pain Expected: 01/06/2024 (Approximate), Expires: 01/05/2025 [facility] Comment on above: Expected: 01/06/2024 (Approximate), Expires: 01/05/2025 Start: 01-06-2024 End: 01-05-2025 Erythrocyte sedimentation rate Sedimentation rate, automated Lab Routine Other chronic pain Expected: 01/06/2024 (Approximate), Expires: 01/05/2025 [facility] Work Phone: Comment on above: Expected: 01/06/2024 (Approximate), Expires: 01/05/2025 Start: 01-06-2024 End: 01-06-2024 Patient encounter procedure [facility] [place] [address] Comment on above: Arrived Start: 12-12-2023 End: 12-12-2023 ambulatory 12/12/2023 1:00 PM EDT Treatment [facility] [address] [place] [address] Mckinley Funk, PROFESSOR OF BIOLOGY [facility] Start: 12-10-2023 End: 12-10-2023 ambulatory 12/10/2023 12:30 PM EDT Treatment [facility] [address] [place] [address] Tawanna Laurent, PT [facility] Start: 12-06-2023 End: 12-06-2023 ambulatory 12/06/2023 12:00 PM EDT Treatment [facility] [address] [place] [address] Mckinley Funk, PROFESSOR OF BIOLOGY [facility] Start: 12-04-2023 End: 12-04-2023 ambulatory 12/04/2023 12:00 PM EDT Treatment [facility] [address] [place] [address] Mckinley Funk, PROFESSOR OF BIOLOGY [facility] Start: 11-29-2023 End: 11-29-2023 ambulatory [facility] Comment on above: Arrived Start: 11-26-2023 End: 11-26-2023 ambulatory 11/26/2023 1:30 PM EDT Evaluation [facility] [address] [place] [address] Tawanna Laurent, PT Rotator cuff impingement syndrome of right shoulder; Shoulder joint hypermobility [facility] Comment on above: Rotator cuff impinge ment syndrome of right shoulder; Shoulder joint hypermobility Start: 11-25-2023 End: 11-25-2023 Patient encounter procedure 11/25/2023 10:45 AM EDT Office Visit [facility] [address] [place] [address] Justus Leggett PA [address] [place] [address] [facility] Start: 11-17-2023 COVID-19 Vaccine ( season) COVID-19 Vaccine ( season) [facility] Start: 11-17-2023 Influenza vaccination [facility] Start: 11-15-2023 End: 11-15-2023 Patient encounter procedure 11/15/2023 10:30 AM EDT Office Visit [facility] [address] [place] [phone] Justus Leggett, PA [address] [place] [address] [facility] Start: 08-21-2023 End: 08-21-2023 Patient encounter procedure 08/21/2023 10:45 AM EDT Office Visit [facility] [address] [place] [address] Ellen Paul, PATessaC [address] [place] [address] [facility] Start: 08-19-2023 End: 08-19-2023 Patient encounter procedure 08/19/2023 8:30 AM EDT Procedure Visit [facility] [address] [place] [address] Onur Kapadia DDS [address] [place] [address] [facility] Start: 07-24-2023 End: 07-24-2023 Patient encounter procedure 07/24/2023 11:00 AM EDT Procedure Visit [facility] [address] [place] [address] Jose Levi DDS [address] [place] [address] [facility] Start: 07-17-2023 End: 07-17-2023 Patient encounter procedure 07/17/2023 1:00 PM EDT Appointment [facility] [address] [place] [phone] Cervical radiculopathy; Cervical spine pain [facility] Comment on above: Cervical radiculopat hy; Cervical spine pain Start: 07-03-2023 End: 07-02-2024 MR Brain WO and W contrast IV MR brain with and without contrast Imaging Routine Cervical radiculopathy Cervical spine pain Numbness of tongue Expected: 07/03/2023, Expires: 07/02/2024 [facility] Comment on above: Expected: 07/03/2023 , Expires: 07/02/2024 Start: 04-17-2023 End: 04-17-2023 Patient encounter procedure 04/17/2023 1:00 PM EST Procedure Visit [facility] [address] [place] [address] Onur Kapadia DDS [address] [place] [address] [facility] Start: 03-27-2023 End: 03-27-2023 Patient encounter procedure 03/27/2023 8:30 AM EST Procedure Visit [facility] [address] [place] [address] Onur Kapadia DDS [address] [place] [address] [facility] Start: 03-25-2023 End: 03-25-2023 Patient encounter procedure 03/25/2023 11:30 AM EST Procedure Visit [facility] [address] [place] [address] Alfonzo Mccord DDS [address] [place] [address] [facility] Start: 03-13-2023 [facility] Start: 03-11-2023 Administration of prophylactic treatment [facility] Start: 03-09-2023 Referral to Signal Tower Director [facility] Start: 03-09-2023 Hospital admission [facility] Start: 02-18-2023 End: 02-18-2023 Patient encounter procedure 02/18/2023 10:30 AM EST Procedure Visit [facility] [address] [place] [address] Alfonzo Mccord DDS [address] [place] [address] [facility] Start: 02-06-2023 End: 02-06-2023 Patient encounter procedure 02/06/2023 1:00 PM EST Procedure Visit [facility] [address] [place] [address] Vaughn Barrera DDS [address] [place] [address] [facility] Start: 01-21-2023 End: 01-21-2023 Patient encounter procedure 01/21/2023 10:30 AM EST Procedure Visit [facility] [address] [place] [address] Alfonzo Mccord DDS [address] [place] [address] [facility] Start: 12-16-2022 Influenza vaccination Influenza Vacc ine (#1) [facility] Start: 11-30-2022 End: 11-30-2022 Patient encounter procedure [facility] Start: 11-16-2022 Influenza vaccination Influenza Vacc ine (#1) [facility] Start: 11-16-2022 End: 11-16-2022 Patient encounter procedure 11/16/2022 10:30 AM EDT Procedure Visit [facility] [address] [place] [address] Alfonzo Mccord DDS [address] [place] [address] [facility] Start: 10-25-2022 End: 10-25-2022 Patient encounter procedure 10/25/2022 11:00 AM EDT Procedure Visit [facility] [address] [place] [address] Alfonzo Mccord DDS [address] [place] [address] [facility] Start: 10-17-2022 End: 10-17-2022 Patient encounter procedure [facility] Start: 10-11-2022 End: 10-11-2022 Patient encounter procedure [facility] Start: 2022 [facility] Start: 09-28-2022 Administration of prophylactic treatment [facility] Start: 09-28-2022 Hospital admission [facility] Start: 09-05-2022 End: 09-05-2022 Patient encounter procedure 09/05/2022 Procedure Visit Dentistry Christian Curtis DDS [address] [place] [address] [facility] Start: 08-23-2022 End: 08-23-2022 Patient encounter procedure 08/23/2022 Procedure Visit Dentistry Christian Curtis, AUGUSTUS [address] [place] [address] [facility] Start: 08-05-2022 [facility] Start: 08-03-2022 Referral to Signal Tower Director [facility] Start: 08-03-2022 Hospital admission [facility] Start: 07-16-2022 End: 07-16-2022 Patient encounter procedure 07/16/2022 Procedure Visit Dentistry Erum Laboy DDS [address] [place] [address] [facility] Start: 07-05-2022 End: 07-05-2022 Patient encounter procedure 07/05/2022 Procedure Visit Dentistry Erum Laboy DDS [address] [place] [address] [facility] Start: 06-29-2022 End: 06-29-2022 Patient encounter procedure 06/29/2022 Procedure Visit Dentistry Erum Laboy DDS [address] [place] [address] [facility] Start: 06-18-2022 End: 06-18-2022 Telemedicine consultation with patient [facility] Comment on above: Arrived Start: 06-14-2022 End: 06-14-2022 Patient encounter procedure 06/14/2022 Procedure Visit Dentistry Erum Laboy DDS [address] [place] [address] [facility] Start: 06-13-2022 [facility] Start: 06-12-2022 Hospital admission [facility] Start: 12-16-2021 Influenza vaccination Influenza Vacc ine (#1) [facility] Start: 2021 Hepatitis A (HAV) Vaccine (optional start 19+ years) Hepatitis A (HAV) Vaccine (optional start 19+ years) [facility] Start: 2021 Hepatitis B vaccination [facility] Start: 2021 Hepatitis B Vaccine (1 of 3 - 19+ 3-dose series) Hepatitis B Vaccine (1 of 3 - 19+ 3-dose series) [facility] Start: 2021 Pneumococcal vaccination Pneum ococcal Vaccine(s) (1 of 2 - PCV) [facility] Start: 2021 Third diphtheria, tetanus and acellular pertussis (DTaP) vaccination TDAP (ADULT) [facility] Start: 2021 Urine microalbumin profile DTaP,Tdap,Td Vaccine (1 - Tdap) [facility] Start: 2020 Anxiety Screening Anxiety Screening [facility] Start: 2020 Depression Screening Depression Scre ening [facility] Start: 2020 Hepatitis C screening [facility] Start: 2020 HIV screening HIV Screening [facility] Start: 2020 Tetanus + diphtheria + acellular pertussis vaccine (product) Tdap Booster [facility] Start: 2018 Meningococcal B (Bexsero,OMV) Vaccine (Optional,16-23 years) Meningococcal B (Bexsero,OMV) Vaccine (Optional,16-23 years) [facility] Start: 2018 Meningococcal B (Bexsero,OMV) Vaccine (Optional,16-23 years) (#1) Meningococcal B (Bexsero,OMV) Vaccine (Optional,16-23 years) (#1) [facility] Start: 2018 Meningococcal B Vacc ine (1 of 2 - Standard) Meningococcal B Vaccine (1 of 2 - Standard) [facility] Start: 2017 [facility] screening [facility] Start: 2017 HPV Vaccine (1 - Mal e 3-dose series) HPV Vaccine (1 - Male 3-dose series) [facility] Start: 2017 Vaccination for jose rafael n papillomavirus [facility] Start: 2016 Peds To Adult Transi tion Annual Assessment Peds To Adult Transition Annual Assessment [facility] Start: 2014 Depression Screening Depression [facility] Start: 2014 Peds To Adult Transi tion Initial Discussion Peds To Adult Transition Initial Discussion [facility] Start: 2013 Vaccination for jose rafael n papillomavirus [facility] Start: 2008 Pneumococcal vaccination [facility] Start: 04-05-2003 COVID-19 Vaccine (#1) COVID-19 Vacci ne (#1) [facility] Start: 2002 Hepatitis B vaccination Hepati tis B (HBV) Vaccine (1 of 3 - 3-dose series) [facility] Start: 2002 Hepatitis C screening HEPATITI S C VIRUS SCREENING [facility] Start: 2002 Tetanus vaccination TETANUS [facility] 19 DELIVERY - JACKLYN PARTIAL DENTURE - CAST METAL FRAMEWORK W/ RESIN BASES 19 DELIVERY - JACKLYN PARTIAL DENTURE - CAST METAL FRAMEWORK W/ RESIN BASES CA Charge Routine 1 Occurrences starting 09/25/2024 [facility] Work Phone: Comment on above: 1 Occurrences khanh cantu 09/25/2024 19 DIAGNOSIS & PRELI MIN IMPRESSIONS - JACKLYN PARTIAL DENTURE - CAST METAL FRAMEWORK W/ RESIN BASES 19 DIAGNOSIS & PRELIMIN IMPRESSIONS - JACKLYN PARTIAL DENTURE - CAST METAL FRAMEWORK W/ RESIN BASES Dental Routine 1 Occurrences starting 09/25/2024 [facility] Work Phone: Comment on above: 1 Occurrences khanh cantu 09/25/2024 19 FRAME TRYIN - COR R CAST IF APPROPRIATE - JACKLYN PARTIAL DENTURE - CAST METAL FRAMEWORK W/ RESIN BASES 19 FRAME TRYIN - EMRCEDES CAST IF APPROPRIATE - JACKLYN PARTIAL DENTURE - CAST METAL FRAMEWORK W/ RESIN BASES Dental Routine 1 Occurrences starting 09/25/2024 [facility] Work Phone: Comment on above: 1 Occurrences khanh cantu 09/25/2024 19 JAW RECORDS - MAN D PARTIAL DENTURE - CAST METAL FRAMEWORK W/ RESIN BASES 19 JAW RECORDS - JACKLYN PARTIAL DENTURE - CAST METAL FRAMEWORK W/ RESIN BASES Dental Routine 1 Occurrences starting 09/25/2024 [facility] Work Phone: Comment on above: 1 Occurrences starti ng 09/25/2024 19 JACKLYN PARTIAL DENT URE - CAST METAL FRAMEWORK W/ RESIN BASES 19 JACKLYN PARTIAL DENTURE - CAST METAL FRAMEWORK W/ RESIN BASES Dental Routine 1 Occurrences starting 09/25/2024 [facility] Work Phone: Comment on above: 1 Occurrences starti ng 09/25/2024 19 MOUTH PREPARATION , FINAL IMPRESSIONS - JACKLYN PARTIAL DENTURE - CAST METAL FRAMEWORK W/ RESIN BASES 19 MOUTH PREPARATION, FINAL IMPRESSIONS - JACKLYN PARTIAL DENTURE - CAST METAL FRAMEWORK W/ RESIN BASES Dental Routine 1 Occurrences starting 09/25/2024 [facility] Work Phone: Comment on above: 1 Occurrences starti ng 09/25/2024 19 WAX RIMS - JACKLYN PARTIAL DENTURE - CAST METAL FRAMEWORK W/ RESIN BASES 19 WAX RIMS - JACKLYN PARTIAL DENTURE - CAST METAL FRAMEWORK W/ RESIN BASES Dental Routine 1 Occurrences starting 09/25/2024 [facility] Work Phone: Comment on above: 1 Occurrences starti ng 09/25/2024 19 WAX TRY IN - JACKLYN PARTIAL DENTURE - CAST METAL FRAMEWORK W/ RESIN BASES 19 WAX TRY IN - JACKLYN PARTIAL DENTURE - CAST METAL FRAMEWORK W/ RESIN BASES Dental Routine 1 Occurrences starting 09/25/2024 [facility] Work Phone: Comment on above: 1 Occurrences starti ng 09/25/2024 3 EXTRACTION, ERUPTE D TOOTH OR EXPOSED ROOT (ELEVATION AND/OR FORCEPS REMOVAL) [facility] Work Phone: Comment on above: 1 Occurrences starti ng 09/25/2024 3,14 DELIVERY - MAX PARTIAL DENTURE - CAST METAL FRAMEWORK W/ RESIN BASES 3,14 DELIVERY - MAX PARTIAL DENTURE - CAST METAL FRAMEWORK W/ RESIN BASES CA Charge Routine 1 Occurrences starting 09/25/2024 [facility] Work Phone: Comment on above: 1 Occurrences starti ng 09/25/2024 3,14 DIAGNOSIS & PRELIMIN IMPRESSIONS - MAX PARTIAL DENTURE - CAST METAL FRAMEWORK W/ RESIN BASES 3,14 DIAGNOSIS & PRELIMIN IMPRESSIONS - MAX PARTIAL DENTURE - CAST METAL FRAMEWORK W/ RESIN BASES Dental Routine 1 Occurrences starting 09/25/2024 [facility] Work Phone: Comment on above: 1 Occurrences starti ng 09/25/2024 3,14 FRAME TRYIN - C BRANHAM CAST IF APPROPRIATE - MAX PARTIAL DENTURE - CAST METAL FRAMEWORK W/ RESIN BASES 3,14 FRAME TRYIN - MERCEDES CAST IF APPROPRIATE - MAX PARTIAL DENTURE - CAST METAL FRAMEWORK W/ RESIN BASES Dental Routine 1 Occurrences starting 09/25/2024 [facility] Work Phone: Comment on above: 1 Occurrences starti ng 09/25/2024 3,14 JAW RECORDS - M AX PARTIAL DENTURE - CAST METAL FRAMEWORK W/ RESIN BASES 3,14 JAW RECORDS - MAX PARTIAL DENTURE - CAST METAL FRAMEWORK W/ RESIN BASES Dental Routine 1 Occurrences starting 09/25/2024 [facility] Work Phone: Comment on above: 1 Occurrences starti ng 09/25/2024 3,14 MAX PARTIAL DEN TURE - CAST METAL FRAMEWORK W/ RESIN BASES 3,14 MAX PARTIAL DENTURE - CAST METAL FRAMEWORK W/ RESIN BASES Dental Routine 1 Occurrences starting 09/25/2024 [facility] Work Phone: Comment on above: 1 Occurrences starti ng 09/25/2024 3,14 MOUTH PREPARATI ON, FINAL IMPRESSIONS - MAX PARTIAL DENTURE - CAST METAL FRAMEWORK W/ RESIN BASES 3,14 MOUTH PREPARATION, FINAL IMPRESSIONS - MAX PARTIAL DENTURE - CAST METAL FRAMEWORK W/ RESIN BASES Dental Routine 1 Occurrences starting 09/25/2024 [facility] Work Phone: Comment on above: 1 Occurrences starti ng 09/25/2024 3,14 WAX RIMS - MAX PARTIAL DENTURE - CAST METAL FRAMEWORK W/ RESIN BASES 3,14 WAX RIMS - MAX PARTIAL DENTURE - CAST METAL FRAMEWORK W/ RESIN BASES Dental Routine 1 Occurrences starting 09/25/2024 [facility] Work Phone: Comment on above: 1 Occurrences starti ng 09/25/2024 3,14 WAX TRY IN - MA X PARTIAL DENTURE - CAST METAL FRAMEWORK W/ RESIN BASES 3,14 WAX TRY IN - MAX PARTIAL DENTURE - CAST METAL FRAMEWORK W/ RESIN BASES Dental Routine 1 Occurrences starting 09/25/2024 [facility] Work Phone: Comment on above: 1 Occurrences starti ng 09/25/2024 Patient Education Depression, Ad ult (DC) [facility] DC Instructions [facility] Work Phone: Patient referral [facility] Work Phone: Trigger Point Inject ion: right cervical paraspinals, left cervical paraspinals, right semispinalis capitis, left semispinalis capitis, right splenius capitis, left splenius capitis Trigger Point Injection: right cervical paraspinals, left cervical paraspinals, right semispinalis capitis, left semispinalis capitis, right splenius capitis, left splenius capitis Procedures Routine Myalgia 01/16/2024 10:53 AM EDT [facility] Work Phone: UNSPECIFIED REMOVABL E PROSTHODONTIC PROCEDURE UNSPECIFIED REMOVABLE PROSTHODONTIC PROCEDURE Dental Routine 1 Occurrences starting 09/25/2024 [facility] Work Phone: Comment on above: 1 Occurrences starti ng 09/25/2024 End: 07-02-2024 XR Cervical spine 4 or 5 Views X-ray spine cervical 4 or 5 views Imaging Routine Cervical radiculopathy Cervical spine pain 1 Occurrences starting 07/03/2023 until 07/02/2024 [facility] Work Phone: Comment on above: 1 Occurrences starti ng 07/03/2023 until 07/02/2024 XR Cervical spine 4 or 5 Views X-ray spine cervical 4 or 5 views Imaging Routine Cervical radiculopathy Cervical spine pain 07/03/2023 12:27 PM [facility]T [facility] Payers Date Payer Category Payer Medicaid (Managed Care) [facility] MEDICAID [id number] 2022 Self-pay [id number] 2022 Medicaid [id number] 2022 Medicaid O [facility] on file [id number] 2021 Dental [facility] Al[facility] [id number] 2021 Unknown [id number]. 1.13.56.2.7 .[id number] 2002 Unknown [id number] 2.16.840.1.392615.3.579.2. 727 2002 Unknown [id number] 2.16.840.1.070028.3.579.2. 593 2002 Unknown [id number] 2.16.840.1.389855.3.579.2. 593 2002 Unknown [id number] 2.16.840.1.419411.3.579.2. 593 2002 Unknown [id number] 2.16.840.1.943029.3.579.2. 593 2002 Unknown [id number] 2.16.840.1.265630.3.579.2. 593 2002 Unknown [id number] 2.16.840.1.899121.3.579.2. 1286 2002 Unknown [id number] 2.16.840.1.850965.3.579.2. 128 2002 Unknown [id number] 2.16840.1.418901.3.579.2. 128 2002 Unknown [id number] 2.16.840.1.148563.3.579.2. 732 2002 Unknown [id number] 2.16840.1.098307.3.579.2. 732 2002 Unknown [id number] 2.16.840.1.383274.3.579.2. 732 2002 Unknown [id number] 2.16840.1.887121.3.579.2. 732 2002 Unknown [id number] 2.16.840.1.231471.3.579.2. 732 2002 Unknown [id number] 2.16.840.1.762575.3.579.2. 732 2002 Unknown [id number] 2.16.840.1.306437.3.579.2. 1259 2002 Unknown [id number] 2.16.840.1.231653.3.579.2. 1259 2002 Unknown [id number] 2.16.840.1.145735.3.579.2. 1258 2002 Unknown [id number] 2.16.840.1.784168.3.579.2. 1258 2002 Unknown [id number] 2.16.840.1.080898.3.579.2. 1258 2002 Unknown [id number] 2.16.840.1.770640.3.579.2. 1258 2002 Unknown [id number] 2.16.840.1.139296.3.579.2. 1258 2002 Unknown [id number] 2.16.840.1.487056.3.579.2. 1258 2002 Unknown [id number] 2.16.840.1.279505.3.579.2. 1258 2002 Unknown [id number] 2.16840.1.191535.3.579.2. 1258 2002 Unknown [id number] 2.16840.1.724214.3.579.2. 1258 2002 Unknown [id number] 2.16.840.1.766173.3.579.2. 1258 2002 Unknown [id number] 2.16.840.1.958997.3.579.2. 1258 2002 Unknown [id number] 2.16.840.1.412284.3.579.2. 1258 2002 Unknown [id number] 2.16.840.1.692198.3.579.2. 1258 2002 Unknown [id number] 2.16.840.1.189365.3.579.2. 1258 2002 Unknown [id number] 2.16.840.1.857302.3.579.2. 1258 2002 Unknown [id number] 2.16.840.1.077030.3.579.2. 1258 2002 Unknown [id number] 2.16840.1.737279.3.579.2. 1258 2002 Unknown [id number] 2.16840.1.404129.3.579.2. 1258 2002 Unknown [id number] 2.16.840.1.636562.3.579.2. 1258 2002 Unknown [id number] 2.16840.1.173124.3.579.2. 1258 2002 Unknown [id number] 2.840.1.931854.3.579.2. 1258 2002 Unknown [id number] 2.840.1.086522.3.579.2. 1258 2002 Unknown [id number] 2.840.1.410982.3.579.2. 1258 2002 Unknown [id number] 2.840.1.807073.3.579.2. 1258 2002 Unknown [id number] 2.840.1.069647.3.579.2. 1258 2002 Unknown [id number] 2.16840.1.108192.3.579.2. 1258 2002 Unknown [id number] 2.16840.1.550100.3.579.2. 1258 2002 Unknown [id number] 2.840.1.419548.3.579.2. 1258 2002 Unknown [id number] 2.16840.1.817398.3.579.2. 1258 2002 Unknown [id number] 2.16840.1.223520.3.579.2. 1258 2002 Unknown [id number] 2.16840.1.819265.3.579.2. 1258 2002 Unknown [id number] 2.16840.1.273184.3.579.2. 9 2002 Unknown [id number] 2.16.840.1.323507.3.579.2. 1259 2002 Unknown [id number] 2.16.840.1.952494.3.579.2. 1259 2002 Unknown [id number] 2.16.840.1.038649.3.579.2. 9 2002 Unknown [id number] 2.16.840.1.553651.3.579.2. 1259 1959 Unknown [id number] Unknown [id number] 2.16.840.1.737216.3.579.2. 531 Unknown [id number] 2.16.840.1.641041.3.579.2. 531 Social History Date Type Detail Facility Tobacco smoking status [facility] Start: 05-22-2022 End: 08-07-2024 Sex Assigned At Male [facility] Start[facility] 05-22-2022 [facility] History of tobacco use Cig[facility] Start: 05-22-2022 End: 06-03-2024 Tobacco use and exposure Smokeless tobacco non-user [facility] Start: 05-22-2022 Tobacco Comment Patient stated that he smokes marijuana cigars on a daily basis. [facility] Start: 2002 Sex Assigned At Not on file [facility] Start: 06-13-2022 End: 06-03-2024 Tobacco smoking status [facility] Never smoked tobacco (finding) [facility] Start: 2002 Sex Assigned At Male [facility] Start: 05-22-2022 End: 08-07-2024 History of Social function [facility] Start: 12-16-2023 End: 05-07-2024 Alcoholic beverage intake Lifetime non-drinker (finding) [facility] Start: 09-17-2023 Alcohol Comment Caffeine: 1-2 cups per day [facility] Start: 03-30-2022 End: 07-16-2024 Sex Male (finding) [facility] Start: 07-03-2023 Alcoholic beverage intake Current drinker of alcohol (finding) [facility] Childcare Unknown [facility] Start: 06-19-2022 Alcohol Comment ocassional [facility] Start: 06-03-2024 End: 08-07-2024 Alcoholic beverage intake Ex-drinker (finding) [facility] Goals Date Patient Goal Desired Activity /State Functional Status Date Assessment Result Facility 03-13-2023 Functional status Patient at Baseline [facility] Work Phone: 2022 Functional status Patient at Baseline [facility] Work Phone: 08-05-2022 Functional status Patient at Baseline [facility] Work Phone: 06-13-2022 Functional status Patient at Baseline [facility] Work Phone: Mental Status Date Assessment Result Facility 03-13-2023 Cognitive function Cognitive Sta tus Patient at Baseline [facility] Work Phone: 2022 Cognitive function Cognitive Sta tus Patient at Baseline [facility] Work Phone: 08-05-2022 Cognitive function Cognitive Sta tus Patient at Baseline [facility] Work Phone: 06-13-2022 Cognitive function Cognitive Sta tus Patient at Baseline [facility] Work Phone: Clinical Notes 04-19-2022 to 10-12-2024 Dylan Little, Therapist - 10/12/2024 7:48 AM EDTTelephone Encounter - Manpreet Dobbs - 10/08/2024 1:58 PM EDTTelephone Encounter - Manpreet Dobbs - 10/08/2024 1:58 PM EDTPatient Instructions Note Date & Type Note Facility 10-12-2024 Note HNO ID: [id number] Author: DYLAN LITTLE Therapist Service: ? Author Type: Therapist Type: Progress Notes Filed: 10/12/2024 08:59 Note Text: No show. [facility] 10-12-2024 History of Present illness Narrative No show. documented in this encounter [facility] 10-08-2024 Telephone encounter Note She called in request of latest PT Progress Note; in need of submission per doctor. Faxed over PT 07/31/24. [facility] 10-08-2024 Miscellaneous Notes She called in request of latest PT Progress Note; in need of submission per doctor. Faxed over PT 07/31/24. documented in this encounter [facility] 09-25-2024 History of Present illness Narrative Dental Consult 09/25/2024 Facility Engineer Needed: No. Chief Complaint Patient presents with Complex Treatment Planning History of Present Illness Past Medical History: Diagnosis Date Carpal tunnel syndrome Osteopenia TMJ dysfunction No current outpatient medications on file. Vitals: 09/25/24 1328 BP: 138/88 Pulse: 68 Resp: 12 No Known Allergies Tobacco Use: Low Risk (09/25/2024) Patient History Smoking Tobacco Use: Never Smokeless Tobacco Use: Never Passive Exposure: Not on file ASA Grade: ASA 2 - Patient with mild systemic disease with no functional limitations Procedure Details D0191 - ASSESSMENT OF A PATIENT Discussed treatment options with patient and obtained maxillary and mandibular alginate impressions. Deemed #3 and #14 nonrestorable due to only lingual cusps remaining, both require EXT. Pt still requires crown on #2. Pt is missing #19 and #30 and has limited space for restorability on edentulous space #30. Presented multiple options to patient including FPDs, implants, and removable partial dentures to fill edentulous spaces. Pt is not interested in extracting or replacing #3 or #14 at this time. Pt expressed concerns about extraction and how it may affect his TMD and tinnitus. Benefits of replacing nonrestorable teeth as well as risks of leaving them untreated were explained. Pt stated he is most concerned about replacing #30 and #19, specifically #30. Pt was informed that #19 may be replaced with implant, FPD or removable denture immediately due to adequate available space and #30 can only be restored with FPD at this time unless pt undergoes orthodontic treatment to increase space for an implant. Pt was informed of the prices of each procedure. Pt became frustrated with lack of treatment options covered by insurance. Pt was encouraged to take time to consider different treatment options. Pt requested orthodontic consultation appointment and phone number for [facility] ortho clinic was given to patient. Pt questions were answered and pt was dismissed in stable condition. Plan/Recommendations: Continue with treatment plan once pt makes decision on treatment Encounter Providers Dental Student: Elizabeth Lucero documented in this encounter [facility] [employer] Work Phone: 09-02-2024 History of Present illness Narrative Dental Procedure 09/02/2024 Facility Engineer Needed: No. Chief Complaint Patient presents with Procedure Core buildup #14, caries History of Present Illness Past Medical History: Diagnosis Date Carpal tunnel syndrome Osteopenia No current outpatient medications on file. Vitals: 09/02/24 0845 BP: 121/70 Pulse: 72 Resp: 12 No Known Allergies Tobacco Use: Low Risk (09/02/2024) Patient History Smoking Tobacco Use: Never Smokeless Tobacco Use: Never Passive Exposure: Not on file ASA Grade: ASA 2 - Patient with mild systemic disease with no functional limitations Procedure Details 14 L D2391 - RESIN-BASED COMPOSITE - 1 SURFACE, POSTERIOR Was local anesthetic administered? Yes Name of medication: Articaine 4% with Epinephrine 1:100,000 Dosage form: 1 carpule Applied topical benzocaine 20% to buccal vestibule #14. Infiltrated with 4% articaine - 1 carpule. Removed caries on lingual cusps and groove of #14. Placed VitreBond liner, applied etch, Gluma, OptiBond, and cured. Restored with A1 composite. Also excavated below existing composite buildup on buccal of #14 due to underlying discoloration. Tooth structure was solid below lutheran so applied etch, Gluma, OptiBond and restored with A1 composite as well. Polished and removed flash. Next Visit: [place] prep and temp #2 Encounter Providers Dentist: Dago Vallejo DDS Dental Student: Elizabeth Lucero documented in this encounter [facility] Work Phone: 09-02-2024 Miscellaneous Notes Was local anesthetic administered? Yes Name of medication: Articaine 4% with Epinephrine 1:100,000 Dosage form: 1 carpule Applied topical benzocaine 20% to buccal vestibule #14. Infiltrated with 4% articaine - 1 carpule. Removed caries on lingual cusps and groove of #14. Placed VitreBond liner, applied etch, Gluma, OptiBond, and cured. Restored with A1 composite. Also excavated below existing composite buildup on buccal of #14 due to underlying discoloration. Tooth structure was solid below lutheran so applied etch, Gluma, OptiBond and restored with A1 composite as well. Polished and removed flash. documented in this encounter [facility] Work Phone: 09-02-2024 cyber defense forensics analyst procedure note Was local anesthetic administered? Yes Name of medication: Articaine 4% with Epinephrine 1:100,000 Dosage form: 1 carpule Applied topical benzocaine 20% to buccal vestibule #14. Infiltrated with 4% articaine - 1 carpule. Removed caries on lingual cusps and groove of #14. Placed VitreBond liner, applied etch, Gluma, OptiBond, and cured. Restored with A1 composite. Also excavated below existing composite buildup on buccal of #14 due to underlying discoloration. Tooth structure was solid below lutheran so applied etch, Gluma, OptiBond and restored with A1 composite as well. Polished and removed flash. [facility] Work Phone: 09-01-2024 History of Present illness Narrative Dental Procedure 09/01/2024 Facility Engineer Needed: No. Chief Complaint Patient presents with Procedure #3 core buildup History of Present Illness Past Medical History: Diagnosis Date Carpal tunnel syndrome Osteopenia No current outpatient medications on file. Vitals: 09/01/24 1325 BP: 106/67 Pulse: 72 Resp: 12 Not on File Tobacco Use: Low Risk (09/01/2024) Patient History Smoking Tobacco Use: Never Smokeless Tobacco Use: Never Passive Exposure: Not on file ASA Grade: ASA 2 - Patient with mild systemic disease with no functional limitations Procedure Details 3 D2950 - CORE BUILDUP, INCLUDING ANY PINS WHEN REQUIRED Was local anesthetic administered? Yes Name of medication: Articaine 4% with Epinephrine 1:100,000 (0.5 carp) Dosage form: Infiltration Existing composite lutheran was removed to jean-claude percha. Restored with A1 paracore system. Flash was removed and lutheran was smoothed. Occlusion checked with articulating paper and contacts checked with floss. Pt dismissed in stable condition. Next Visit: [place] #2 prep and temp Encounter Providers Dental Student: Elizabeth Lucero documented in this encounter [facility] Work Phone: 09-01-2024 Miscellaneous Notes Was local anesthetic administered? Yes Name of medication: Articaine 4% with Epinephrine 1:100,000 (0.5 carp) Dosage form: Infiltration Existing composite lutheran was removed to jean-claude percha. Restored with A1 paracore system. Flash was removed and lutheran was smoothed. Occlusion checked with articulating paper and contacts checked with floss. Pt dismissed in stable condition. documented in this encounter [facility] Work Phone: 09-01-2024 cyber defense forensics analyst procedure note Was local anesthetic administered? Yes Name of medication: Articaine 4% with Epinephrine 1:100,000 (0.5 carp) Dosage form: Infiltration Existing composite lutheran was removed to jean-claude percha. Restored with A1 paracore system. Flash was removed and lutheran was smoothed. Occlusion checked with articulating paper and contacts checked with floss. Pt dismissed in stable condition. [facility] Work Phone: 09-01-2024 History of Present illness Narrative Gnosticism: #2 - MOBDL Presented pt. with the consent for basic restorative dentistry. Went over the indications, risks and benefits of treatment and answered any questions the pt. had. Obtained pt. consent. Local anesthesia: Articaine 4% with Epinephrine 1:100,000 Benzocaine 20% topical gel 1 cartridges used to Infiltrate PSA Once pt. was numb, prepared #2 for removing all decay/restorative material. Isolated with cotton rolls/dry angles. Placed a band and wedge. Applied paracore system to MODBL surfaces of tooth #2. Restored #2 with A1 paracore. Removed band and wedge. Checked contact with floss. Removed all flash. Checked occlusion and adjusted as needed. Answered patient questions about procedure and dismissed pt. in stable condition. Dental Procedure 09/01/2024 Facility Engineer Needed: No. Chief Complaint Patient presents with Procedure #4 MOD History of Present Illness Past Medical History: Diagnosis Date Carpal tunnel syndrome Osteopenia No current outpatient medications on file. Vitals: 09/01/24 0906 BP: 118/80 Pulse: 73 Resp: 12 No Known Allergies Tobacco Use: Low Risk (09/01/2024) Patient History Smoking Tobacco Use: Never Smokeless Tobacco Use: Never Passive Exposure: Not on file ASA Grade: ASA 2 - Patient with mild systemic disease with no functional limitations Procedure Details 2 D2950 - CORE BUILDUP, INCLUDING ANY PINS WHEN REQUIRED Was local anesthetic administered? Yes Name of medication: Articaine 4% with Epinephrine 1:100,000 Dosage form: 1 Next Visit: Core buildup #3 Encounter Providers Dentist: Manpreet Ramos DDS Dental Student: Elizabeth Lucero documented in this encounter [facility] Work Phone: 09-01-2024 Miscellaneous Notes Was local anesthetic administered? Yes Name of medication: Articaine 4% with Epinephrine 1:100,000 Dosage form: 1 documented in this encounter [facility] Work Phone: 09-01-2024 cyber defense forensics analyst procedure note Was local anesthetic administered? Yes Name of medication: Articaine 4% with Epinephrine 1:100,000 Dosage form: 1 [facility] Work Phone: 08-07-2024 Note HNO ID: [id number] Author: MANPREET KELLEY, DO Service: ? Author Type: Physician Type: Progress Notes Filed: 08/07/2024 11:13 Note Text: [facility] August 07, 2024 Betty Rosenberg is a 23 year old currently lives with his 2 brothers He was referred by Ian Iqbal [id number] [facility] [id number]. Chief complaint: Polyarthralgia SUBJECTIVE: Pt was referred by Dr. Iqbal, there are pending future labs. Pt reports he went to [place] to have the labs drawn. Pt reports his pain is in his bones.He reports pain in right knee, wrists. He has popping in his right leg. He also has right shoulder pain. He has had a bone density test at [place] and he was diagnosed with osteopenia. Spine Red Flag Betty Rosenberg has no red flag symptoms. Anesthesia: no previous surgeries Schizophrenia: N : N CHF: N Uncontrolled HTN: N Recent NV: N Arrythmias: N Afib: N Hyperthyroid: N Aortic Stenosis: N Liver Failure: N Increased ICP: N Average pain over the last 7 days:3-4- Previous pain treatments: He has used Voltaren gel. He has been to PT. He had an injection into his right shoulder, this was a steroid injection, performed by Ortho. He limits NSAIDS bc of his eating issues Functional Limitations: He reports he feels like he is in the body of an 80 year old, feels shaky and weak at times Wellness: How would you describe your diet: he does not eat well, he reports anorexia, but no formal diagnosis How many days a week do you exercise: walking How many hours do you sleep a night: 6-10 hours, no sleep meds, he used to take Remeron Emotional Symptoms: include depression and anxiety The patient has loss of interest and energy The patient he reports SI, last time was Dec 2023, he was hospitalized then. 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 Allergies: Reviewed in the EMR Current Medications: Reviewed in the EMR Medical History: Reviewed in the EMR Surgical History: Reviewed in the EMR Psychiatric History: Anxiety Depression He used to see a psychiatrist He has been admitted about 12 times at [facility], for SI He has stopped all meds, it made his brain feel weird and ED Social History Tobacco Use Smoking status: Never Smokeless tobacco: Never Substance Use Topics Alcohol use: Not Currently Drug use: Yes Types: Marijuana Substance use: Tobacco: Reviewed in the EMR, denies Alcohol: he reports rare alcohol use Drug use: daily THC use, no relief of symptoms. Family History: Reviewed in the EMR ROS was positive for: knee pain All of the other systems reviewed were negative. OBJECTIVE: PHYSICAL EXAM: GENERAL APPEARANCE: Well appearing, well-hydrated, well nourished and alert SKIN: Head, neck, trunk, and extremities dry, intact and without lesions NECK: negative findings: no asymmetry or scars BACK: no tenderness to percussion or palpation, positive findings: paraspinal muscle spasm LUNGS: even and non-labored breathing, normal chest excursion HEART: Edema: No MUSCULOSKELETAL: Spine range of motion normal. Muscular strength intact. NEURO/PSYCH: cranial nerves 2-12 intact, speech normal, mental status intact IMAGING: Reviewed cervical spine imaging ASSESSMENT: ASSESSMENT/PLAN: 1. Myalgia - ICD9: 729.1, ICD10: M79.10 (primary diagnosis) 2. Pain in other joint - ICD9: 719.48, ICD10: M25.59 3. Anorexia nervosa (HCC) - ICD9: 307.1, ICD10: F50.00 PLAN: Further evaluation: follow up on Rheumatology consult, can schedule this closer to home, recc close follow up with his PCP Nutrition: N Therapies: placed new order for PT Sleep: N Worklessness: N Medications: continue with PRN Voltaren gel Interventions: N Infusions: pt is not a candidate for Ketamine at this time 9. Pain Psychology: referral to pain psychology, needs to re establish with a therapist close to home as well Review, Ask, Review: Y Follow-up: MENDOZA Kelley DO I spent a total of 35 minutes on the date of the service which included preparing to see the patient, [id number] patient care, completing clinical documentation, obtaining and/or reviewing separately obtained history, performing a medically appropriate examination, counseling and educating the patient/family/caregiver, and ordering medications, tests, or procedures. Important Patient Information: 1. To schedule Pain Recovery appointments or post-injection office visits, please call: [phone] 2. The nursing staff and medical assistants are an integral part of your pain recovery team and will be handling your phone calls and in (more content not included)... [facility] 08-07-2024 Note HNO ID: [id number] Author: ANUJA PEREZ RN Service: ? Author Type: Registered Nurse Type: Progress Notes Filed: 08/07/2024 11:13 Note Text: Pt notes he has tried gabapentin in the past with benefit but this was discontinued by his PCP. Pt reported to RN feeling depressed, self reported anorexia, anxiety. Anuja Perez RN [facility] 07-30-2024 Telephone encounter Note Pt called asking me to fax all lab orders to [facility] [phone] - Orders has been faxed to number provided. [facility] 07-30-2024 Miscellaneous Notes Pt called asking me to fax all lab orders to [facility] [phone] - Orders has been faxed to number provided. documented in this encounter [facility] 07-13-2024 Telephone encounter Note Contacted and he was able to schedule. Got him in 07/14 and 07/17/24. He said tomorrow we can schedule more. [facility] 07-13-2024 Miscellaneous Notes Contacted and he was able to schedule. Got him in 07/14 and 07/17/24. He said tomorrow we can schedule more. Tried to contact to notify of PT auth received; 8 PT's out to 08/01/24. Requested a call back to schedule at his earliest convenience. documented in this encounter [facility] 06-30-2024 Telephone encounter Note Tried to contact to notify of PT auth received; 8 PT's out to 08/01/24. Requested a call back to schedule at his earliest convenience. [facility] 06-03-2024 Note HNO ID: [id number] Author: IAN IQBAL MD Service: ? Author Type: Physician Type: Progress Notes Filed: 06/05/2024 23:09 Note Text: SPINE CARE PATH NECK PAIN: CHRONIC INITIAL + polyarthralgia neck cracking felt orthopedics some shoulder hand pain 2018 sedentary lifestyle homeschooled had tooth pulled decreased tmj neck pain since 2018 also relates since having dental work SUBJECTIVE HISTORY OF PRESENT ILLNESS: Betty Rosenberg is a 23 year old male who presents with chronic neck pain. Other Issues Addressed at the Visit Today: decreased Precipitating Event: none PAIN EVALUATION 06/03/2024 1040 Pain Level: 8 Pain Location: Shoulder-Right Arms Description: Dull;Aching;Sharp Duration Amount of Time: 4 Duration Units: Years Frequency: Continuous Intervention/Comfort measure: Exercise;Relaxation;Medication;C old;Heat;Other: See comment injections 19 filling right shoulder pain#1 + cortisone shot 6 weeks ago helped neck pain cracking neurology trigger point injections [employer] shoulder pain right to neck 3/10 lifting arm movement pops out PT neck pain intermittent sharp deep rates pain at 10 at worse 1-2/10 intermittent + right hip pain right side feelsmore overuse no clear dermatomal pattern emg-cts vs no neck cream voltaren ibuprofen, PT for shoulder some help told had osteopenia Prior Therapy: Analgesics and Oral steroids PT for shoulder seems steroids for shoulder , muscles helped Litigation: No Workers' Compensation: No xr cervical 2023 report only Vertebral body heights, alignment, and densities are normal. No prevertebral soft tissue thickening. No degenerative changes. Base of the dens and lateral masses are appropriately aligned. No foraminal narrowing. No acute fracture. IMPRESSION: Normal cervical spine radiographs YELLOW AND BLUE FLAGS YES-Avoiding Activity (for Fear of Pain) YES-Depression or Anxiety Disorders No-Social Problems No-Financial Disincentives Patient Entered Questionnaires PROMIS Score Percentiles Percentiles provide an indication of how the patient's score ranks in relation to the general population. Higher percentile rankings indicate better function/quality of life. 50th percentile is the average of the general population and indicates half of respondents had a worse score. Depression Screening: PHQ-9 Self-Harm (Item 9) response options: 0 Not at all 1 Several days 2 More than half the days 3 Nearly every day PHQ-9 Levels: 0-4 No - mild depression 5-9 Mild depression 10-14 Moderate depression 15-19 Moderately severe depression 20-27 Severe depression There is no problem list on file for this patient. No past medical history on file. No past surgical history on file. Social History Tobacco Use Smoking status: Never Smokeless tobacco: Never Substance Use Topics Alcohol use: Not Currently Drug use: Yes Types: Marijuana polyarthralgia chronic shoulder pain marijuana nkda No family history on file. ALLERGIES No Known Allergies CURRENT MEDICATIONS: calcium carbonate (OS-YELENA 500) 500 mg calcium (1,250 mg) tablet cholecalciferol (VITAMIN D3) 400 unit tab ARTHRITIS PAIN, DICLOFENAC, 1 % topical gel APPLY 1 GRAM up to THREE TIMES DAILY TO THE AFFECTED AREA(S) REVIEW OF SYSTEMS: GENERAL: Denies fever, chills malaise and weight loss. HEENT: No recent change in vision or hearing. CARDIOVASCULAR: Denies chest pain, history of A-fib, valvular disease, or pacemaker/ICD. RESPIRATORY: Denies SOB, sputum production, and hemoptysis. GI: Denies GI ulcers, inflammatory disease, or liver disease. OBJECTIVE PHYSICAL EXAM: BP 104/56 Pulse 76 Resp 20 Ht 170.2 cm (5' 7 ) Wt 63.5 kg (140 lb) BMI 21.93 kg/m? GENERAL APPEARANCE: Well nourished, well developed, and no apparent distress. NEURO PSYCH: Patient oriented to person, place, and time. Mood pleasant. Benign affect. MUSCULOSKELETAL VISUAL INSPECTION CERVICAL: Kyphosis THORACIC:kyphosis LUMBAR: wnl PALPATION: SPINOUS PROCESS: No pain. PARASPINALS: Pain.diffuse cervical,thoracic ,lumbar SPINE ROM: LUMBAR ROM: flexion dec extension neg CERVICAL ROM: Full ROM Without Pain MUSCLE BULK: Normal and symmetrical in the upper AND lower extremities. MUSCLE TONE: Normal. MOTOR: 5/5 in all muscle groups. SENSORY: Normal sensory exam GAIT: Normal. REFLEXES: +2 to bilateral U/L extremities. PROPRIOCEPTION: Normal. LONG TRACT SIGNS: No clonus. No Hoffmans. BABINSKI: Downward response STRAIGHT LEG TEST: Ipsilateral: Negative. PERIPHERAL JOINT ROM: HIP ROM: Full ROM Without Pain Data Review: [facility] records independently reviewed ASSESSMENT/PLAN multiple complaints seems chronic here for evaluation of neck pain with normal x-rays he does have shoulder pain right#1 polyarthralgia prominent hand, knees body aches als (more content not included)... [facility] 06-03-2024 History of Present illness Narrative Images from the original note were not included. SPINE CARE PATH NECK PAIN: CHRONIC INITIAL + polyarthralgia neck cracking felt orthopedics some shoulder hand pain 2018 sedentary lifestyle homeschooled had tooth pulled decreased tmj neck pain since 2018 also relates since having dental work SUBJECTIVE HISTORY OF PRESENT ILLNESS: Betty Rosenberg is a 23 year old male who presents with chronic neck pain. Other Issues Addressed at the Visit Today: decreased Precipitating Event: none PAIN EVALUATION 06/03/2024 1040 Pain Level: 8 Pain Location: Shoulder-Right Arms Description: Dull;Aching;Sharp Duration Amount of Time: 4 Duration Units: Years Frequency: Continuous Intervention/Comfort measure: Exercise;Relaxation;Medication;C old;Heat;Other: See comment injections 19 filling right shoulder pain#1 + cortisone shot 6 weeks ago helped neck pain cracking neurology trigger point injections [employer] shoulder pain right to neck 3/10 lifting arm movement pops out PT neck pain intermittent sharp deep rates pain at 10 at worse 1-2/10 intermittent + right hip pain right side feelsmore overuse no clear dermatomal pattern emg-cts vs no neck cream voltaren ibuprofen, PT for shoulder some help told had osteopenia Prior Therapy: Analgesics and Oral steroids PT for shoulder seems steroids for shoulder , muscles helped Litigation: No Workers' Compensation: No xr cervical 2023 report only Vertebral body heights, alignment, and densities are normal. No prevertebral soft tissue thickening. No degenerative changes. Base of the dens and lateral masses are appropriately aligned. No foraminal narrowing. No acute fracture. IMPRESSION: Normal cervical spine radiographs YELLOW & BLUE FLAGS YES-Avoiding Activity (for Fear of Pain) YES-Depression or Anxiety Disorders No-Social Problems No-Financial Disincentives Patient Entered Questionnaires PROMIS Score Percentiles Percentiles provide an indication of how the patient's score ranks in relation to the general population. Higher percentile rankings indicate better function/quality of life. 50th percentile is the average of the general population and indicates half of respondents had a worse score. Depression Screening: PHQ-9 Self-Harm (Item 9) response options: 0 Not at all 1 Several days 2 More than half the days 3 Nearly every day PHQ-9 Levels: 0-4 No - mild depression 5-9 Mild depression 10-14 Moderate depression 15-19 Moderately severe depression 20-27 Severe depression There is no problem list on file for this patient. No past medical history on file. No past surgical history on file. Social History Tobacco Use Smoking status: Never Smokeless tobacco: Never Substance Use Topics Alcohol use: Not Currently Drug use: Yes Types: Marijuana polyarthralgia chronic shoulder pain marijuana nkda No family history on file. ALLERGIES No Known Allergies CURRENT MEDICATIONS: calcium carbonate (OS-YELENA 500) 500 mg calcium (1,250 mg) tablet cholecalciferol (VITAMIN D3) 400 unit tab ARTHRITIS PAIN, DICLOFENAC, 1 % topical gel APPLY 1 GRAM up to THREE TIMES DAILY TO THE AFFECTED AREA(S) REVIEW OF SYSTEMS: GENERAL: Denies fever, chills malaise and weight loss. HEENT: No recent change in vision or hearing. CARDIOVASCULAR: Denies chest pain, history of A-fib, valvular disease, or pacemaker/ICD. RESPIRATORY: Denies SOB, sputum production, and hemoptysis. GI: Denies GI ulcers, inflammatory disease, or liver disease. OBJECTIVE PHYSICAL EXAM: BP 104/56 Pulse 76 Resp 20 Ht 170.2 cm (5' 7 ) Wt 63.5 kg (140 lb) BMI 21.93 kg/m GENERAL APPEARANCE: Well nourished, well developed, and no apparent distress. NEURO PSYCH: Patient oriented to person, place, and time. Mood pleasant. Benign affect. MUSCULOSKELETAL VISUAL INSPECTION CERVICAL: Kyphosis THORACIC:kyphosis LUMBAR: wnl PALPATION: SPINOUS PROCESS: No pain. PARASPINALS: Pain.diffuse cervical,thoracic ,lumbar SPINE ROM: LUMBAR ROM: flexion dec extension neg CERVICAL ROM: Full ROM Without Pain MUSCLE BULK: Normal and symmetrical in the upper & lower extremities. MUSCLE TONE: Normal. MOTOR: 5/5 in all muscle groups. SENSORY: Normal sensory exam GAIT: Normal. REFLEXES: +2 to bilateral U/L extremities. PROPRIOCEPTION: Normal. LONG TRACT SIGNS: No clonus. No Hoffmans. BABINSKI: Downward response STRAIGHT LEG TEST: Ipsilateral: Negative. PERIPHERAL JOINT ROM: HIP ROM: Full ROM Without Pain Data Review: [facility] records independently reviewed ASSESSMENT/PLAN multiple complaints seems chronic here for evaluation of neck pain with normal x-rays he does have shoulder pain right#1 polyarthralgia prominent hand, knees body aches also jaw pain he took care of dad who dies december 2023 from lingering illness he admits some depression issues that brought him to psych donnelly in the past - cbc,cmp,hlab27, yesenia,rf, esr,crp to rule out inflammatory process - chronic pain rehab program evaluation - start PT for neck , back rom,stretching modalities prn - rheumatology consult for polyarthralgia ?fms - proper posture counselling discussed myofascial pain - I will touch bases after lab test Imaging Ordered: None SIGNATURE: Ian Iqbal MD PATIENT NAME: Betty Rosenberg DATE: June 03, 2024 TIME: 11:55 AM documented in this encounter [facility] 05-19-2024 Telephone encounter Note Scheduled his PT out to 06/15/24. [facility] 05-19-2024 Miscellaneous Notes Scheduled his PT out to 06/15/24. Contacted noting we had received more auth for PT, 05/06-06/15 w 12 visits; but he requested a call back to schedule out. documented in this encounter [facility] 05-18-2024 Telephone encounter Note Contacted noting we had received more auth for PT, 05/06-06/15 w 12 visits; but he requested a call back to schedule out. [facility] 05-06-2024 History of Present illness Narrative Images from the original note were not included. Physical Therapy Treatment Visit Patient Name: Betty Rosenberg Today's Date: 05/06/2024 Encounter Diagnoses Name Primary? Rotator cuff impingement syndrome of right shoulder Yes Shoulder joint hypermobility Visit number: 10/29 Timed Code Treatment Minutes: 53 minutes Total Treatment Time: 55 minutes Time In: 1140 Time Out: 1235 History: Pt. Presents to PT with c/c of right shoulder pain which started years ago and continues to get worse. Pt. Tried PT 3 visits of PT in November 2023 for his right shoulder pain but was discharged due to unable to tolerate exercises in PT and was referred back to provider for more testing. Pt. Reports now he Has to try 6 weeks of PT before insurance will approve of MRI of right shoulder. Pt. Is in constant whole body pain. Pt. Has neck pain, jaw pain, spinal pain, right hip pain, and right knee pain. Pt. Has difficulty sleeping at night due to pain. Pt. Has N/T sensation in his neck, back, and legs. 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 Pt. Has to depend on other people for help with daily tasks due to severe pain. Pt. Reports he feels his health is so bad he will be in a correction by next year. Precautions: universal, history poor eating habits. (Anorexia) due to jaw pain and does not want to eat Subjective: Pt reports of no change in his shoulder issues. Pt reports that Left shoulder has not gotten worse. He reports shoulders are feeling slightly better. Pt reported Dr. Cesar wanted Pt to get a second opinion on shoulders. He going to [place] for an osteopathic doctor next month (06/01). Minimal compliance with HEP, Encouraged Pt to perform more frequent. Pt. Reports overall injection to right shoulder might of helped and feels PT treatment is helping some to decrease his shoulder pain and improve mobility. Pain: 5-10/25 Objective: PT Evaluation (02/26/24) Right shoulder AROM: flexion 160 degrees, abduction 150 degrees, IR L5, ER occiput Right shoulder Flexibility: latissimus dorsi muscle tightness Observation: patient demonstrates grimacing with all shoulder movements, pt. Reports he feels his shoulder is going to pop out of place while reaching overhead. Pt. Keeps shoulder is guarded position. Shoulder strength: right shoulder flexion 4-/5, abduction 3+/5, ER 4-/5, IR 4-/5, biceps 4/5 Palpation: TTP right anterior shoulder pain Treatment: Education: HEP education with demonstration, Educated on Eval Findings and POC Manual Therapy: (minutes) PROM, STM right shoulder, pec, and bicep Passive ROM, Joint mobilization, Soft Tissue Mobilization, Myofascial Release, Muscle Energy Technique, Neural Mobilization, Myofascial Cupping, Dry Needling, IASTM, and Scar mobilization Therapeutic Exercise: (30 minutes) Instructed to strengthen RTC and posterior shoulder to improve functional tolerance. UBE used to improve scap and shoulder support, reducing pain. Reduced loads this session due to shoulder discomfort. Strength, Endurance, Flexibility, ROM, HEP, Neural Mobilization, Power, and Core Stability Therapeutic Activity: Exercises to improve dynamic activities, functional tasks, functional mobility to return to prior activity level Neuromuscular re-education: (23 minutes) To improve scapular mobility and stability during movements to improve shoulder positioning. Incorporated D1/D2 patterns for flexion and extension to improve muscular facilitation. Balance Training, Muscle Facilitation, Dynamic Stability, Core Stabilization, and Blood Flow Restriction Training (BFRT) Modalities: (PRN) MHP right shoulder. Heat, Ice, Electrical Stimulation, Ultrasound, Cervical Mechanical Traction, Lumbar Mechanical Traction, Iontophoresis, and Fluidotherapy Assessment: Pt. Has participated in 12 PT session with start of POC on 02/26/24 for right shoulder pain/instability. Pt. Continues to demonstrate fair tolerance with ther ex to help improve scapular muscle strength and shoulder strength. Tactile cues to reduce UT involvement and to improve lower trap and serratus activation. Good tolerance to added PNF patterns. Recommend to continue PT treatment to help patient continue to improve his functional mobility. Pt. Continues to demonstrate significant bilateral shoulder strength but shoulder ROM is improving. Shoulder ROM grossly 170 in flexion/abduction. Pt requested to continue with therapy and new referral from Dr. Cesar's office was received, on 05/04. Outcome Measure: 0 UEFS, 58/80 (04/29/24) Short Term Goal: To be met in 2 weeks Goal 1: Pt to be instructed in home exercise program. Senior Care Goals: To be met in 10 weeks Goal 1: Pt to report independence and compliance with home program. Goal 2: Pt. Will report of 3/10 or less right shoulder pain while performing work/daily tasks to help improve his functional mobility. (Progress) Goal 3: Pt. Will demonstrate full 175 degrees or greater AROM right shoulder elevation ROM to allow him to perform daily work/household tasks to help improve his quality of life. (Progressing) Goal 4: Pt. Will demonstrate 4+/5 or greater right shoulder strength grossly in all planes to help improve his functional mobility and perform work tasks with less pain. (Progressing) Goal 5: Pt. Will score 45 or greater on UEFS to help improve his functional mobility. MET Goal 6: Pt. Will demonstrate improve right shoulder joint stability to help improve his functional mobility to improve his quality of life. (Progressing) Pt will benefit from skilled PT for 2-3x/week from 02/26/24 to 05/21/24 to address the above impairments. I hereby deem this POC medically necessary. Please sign below. Date: documented in this encounter [facility] 04-22-2024 History of Present illness Narrative Images from the original note were not included. Physical Therapy Treatment Visit Patient Name: Betty Rosenberg Today's Date: 04/22/2024 Encounter Diagnoses Name Primary? Rotator cuff impingement syndrome of right shoulder Yes Shoulder joint hypermobility Visit number: 09/19 Timed Code Treatment Minutes: 54 minutes Total Treatment Time: 60 minutes Time In: 1000 Time Out: 1100 History: Pt. Presents to PT with c/c of right shoulder pain which started years ago and continues to get worse. Pt. Tried PT 3 visits of PT in November 2023 for his right shoulder pain but was discharged due to unable to tolerate exercises in PT and was referred back to provider for more testing. Pt. Reports now he Has to try 6 weeks of PT before insurance will approve of MRI of right shoulder. Pt. Is in constant whole body pain. Pt. Has neck pain, jaw pain, spinal pain, right hip pain, and right knee pain. Pt. Has difficulty sleeping at night due to pain. Pt. Has N/T sensation in his neck, back, and legs. 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 Pt. Has to depend on other people for help with daily tasks due to severe pain. Pt. Reports he feels his health is so bad he will be in a correction by next year. Precautions: universal, history poor eating habits. (Anorexia) due to jaw pain and does not want to eat Subjective: Pt reports of no change in his shoulder issues. Pain: 5-10/25 Objective: PT Evaluation (02/26/24) Right shoulder AROM: flexion 160 degrees, abduction 150 degrees, IR L5, ER occiput Right shoulder Flexibility: latissimus dorsi muscle tightness Observation: patient demonstrates grimacing with all shoulder movements, pt. Reports he feels his shoulder is going to pop out of place while reaching overhead. Pt. Keeps shoulder is guarded position. Shoulder strength: right shoulder flexion 4-/5, abduction 3+/5, ER 4-/5, IR 4-/5, biceps 4/5 Palpation: TTP right anterior shoulder pain Treatment: Education: HEP education with demonstration, Educated on Eval Findings and POC Manual Therapy: (minutes) PROM, STM right shoulder, pec, and bicep Passive ROM, Joint mobilization, Soft Tissue Mobilization, Myofascial Release, Muscle Energy Technique, Neural Mobilization, Myofascial Cupping, Dry Needling, IASTM, and Scar mobilization Therapeutic Exercise: (30 minutes) Strength, Endurance, Flexibility, ROM, HEP, Neural Mobilization, Power, and Core Stability Therapeutic Activity: Exercises to improve dynamic activities, functional tasks, functional mobility to return to prior activity level Neuromuscular re-education: (24 minutes) Balance Training, Muscle Facilitation, Dynamic Stability, Core Stabilization, and Blood Flow Restriction Training (BFRT) Modalities: (10 minutes) MHP right shoulder. Heat, Ice, Electrical Stimulation, Ultrasound, Cervical Mechanical Traction, Lumbar Mechanical Traction, Iontophoresis, and Fluidotherapy Assessment: Pt. Has participated in 7 PT session with start of POC on 02/26/24 for right shoulder pain/instability. Pt. Continues to demonstrate fair tolerance with ther ex to help improve scapular muscle strength. Outcome Measure: 0/80 UEFS Short Term Goal: To be met in 2 weeks Goal 1: Pt to be instructed in home exercise program. Senior Care Goals: To be met in 10 weeks Goal 1: Pt to report independence and compliance with home program. Goal 2: Pt. Will report of 3/10 or less right shoulder pain while performing work/daily tasks to help improve his functional mobility. Goal 3: Pt. Will demonstrate full 175 degrees or greater AROM right shoulder elevation ROM to allow him to perform daily work/household tasks to help improve his quality of life. Goal 4: Pt. Will demonstrate 4+/5 or greater right shoulder strength grossly in all planes to help improve his functional mobility and perform work tasks with less pain. Goal 5: Pt. Will score 45 or greater on UEFS to help improve his functional mobility. Goal 6: Pt. Will demonstrate improve right shoulder joint stability to help improve his functional mobility to improve his quality of life. Pt will benefit from skilled PT for 2-3x/week from 02/26/24 to 05/21/24 to address the above impairments. I hereby deem this POC medically necessary. Please sign below. Date: documented in this encounter [facility] 04-20-2024 History of Present illness Narrative Images from the original note were not included. Physical Therapy Treatment Visit Patient Name: Betty Rosenberg Today's Date: 04/20/2024 Encounter Diagnoses Name Primary? Rotator cuff impingement syndrome of right shoulder Yes Shoulder joint hypermobility Visit number: 08/20 Timed Code Treatment Minutes: 54 minutes Total Treatment Time: 60 minutes Time In: 1100 Time Out: 1200 History: Pt. Presents to PT with c/c of right shoulder pain which started years ago and continues to get worse. Pt. Tried PT 3 visits of PT in November 2023 for his right shoulder pain but was discharged due to unable to tolerate exercises in PT and was referred back to provider for more testing. Pt. Reports now he Has to try 6 weeks of PT before insurance will approve of MRI of right shoulder. Pt. Is in constant whole body pain. Pt. Has neck pain, jaw pain, spinal pain, right hip pain, and right knee pain. Pt. Has difficulty sleeping at night due to pain. Pt. Has N/T sensation in his neck, back, and legs. 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 Pt. Has to depend on other people for help with daily tasks due to severe pain. Pt. Reports he feels his health is so bad he will be in a correction by next year. Precautions: universal, history poor eating habits. (Anorexia) due to jaw pain and does not want to eat Subjective: Pt reports he does not want to talk about his shoulder today. Pain: 5-10/25 Objective: PT Evaluation (02/26/24) Right shoulder AROM: flexion 160 degrees, abduction 150 degrees, IR L5, ER occiput Right shoulder Flexibility: latissimus dorsi muscle tightness Observation: patient demonstrates grimacing with all shoulder movements, pt. Reports he feels his shoulder is going to pop out of place while reaching overhead. Pt. Keeps shoulder is guarded position. Shoulder strength: right shoulder flexion 4-/5, abduction 3+/5, ER 4-/5, IR 4-/5, biceps 4/5 Palpation: TTP right anterior shoulder pain Treatment: Education: HEP education with demonstration, Educated on Eval Findings and POC Manual Therapy: (minutes) PROM, STM right shoulder, pec, and bicep Passive ROM, Joint mobilization, Soft Tissue Mobilization, Myofascial Release, Muscle Energy Technique, Neural Mobilization, Myofascial Cupping, Dry Needling, IASTM, and Scar mobilization Therapeutic Exercise: (30 minutes) Strength, Endurance, Flexibility, ROM, HEP, Neural Mobilization, Power, and Core Stability Therapeutic Activity: Exercises to improve dynamic activities, functional tasks, functional mobility to return to prior activity level Neuromuscular re-education: (24 minutes) Balance Training, Muscle Facilitation, Dynamic Stability, Core Stabilization, and Blood Flow Restriction Training (BFRT) Modalities: (10 minutes) MHP right shoulder. Heat, Ice, Electrical Stimulation, Ultrasound, Cervical Mechanical Traction, Lumbar Mechanical Traction, Iontophoresis, and Fluidotherapy Assessment: Pt. Has participated in 6 PT session with start of POC on 02/26/24 for right shoulder pain/instability. No progress toward PT goals. Pt. Returns to PT after his injection. Good effort with all ther ex. Outcome Measure: 0/80 UEFS Short Term Goal: To be met in 2 weeks Goal 1: Pt to be instructed in home exercise program. 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 Goal 2: Pt. Will report of 3/10 or less right shoulder pain while performing work/daily tasks to help improve his functional mobility. Goal 3: Pt. Will demonstrate full 175 degrees or greater AROM right shoulder elevation ROM to allow him to perform daily work/household tasks to help improve his quality of life. Goal 4: Pt. Will demonstrate 4+/5 or greater right shoulder strength grossly in all planes to help improve his functional mobility and perform work tasks with less pain. Goal 5: Pt. Will score 45 or greater on UEFS to help improve his functional mobility. Goal 6: Pt. Will demonstrate improve right shoulder joint stability to help improve his functional mobility to improve his quality of life. Pt will benefit from skilled PT for 2-3x/week from 02/26/24 to 05/21/24 to address the above impairments. I hereby deem this POC medically necessary. Please sign below. Date: documented in this encounter [facility] 04-16-2024 Telephone encounter Note Called re: CRUZ and he said he had just moved yesterday and has no transportation set-up. I reminded of PT on 04/20 and he said Ok . [facility] 04-16-2024 Miscellaneous Notes Called re: CRUZ and he said he had just moved yesterday and has no transportation set-up. I reminded of PT on 04/20 and he said Ok . documented in this encounter [facility] 04-09-2024 History of Present illness Narrative ----- March at 4:15:06 PM ----- ----- Provider: [id number] Resident Lianne -- Clinic: [place] ----- [facility] Patient is scheduled for Gnosticism on tooth #2 ODLB and 4 surface MOD. Reviewed Medical History. Pt exhibited the following conditions: No significant medical history Patient is ready for treatment. Topical Benzocaine gel applied at the injection site for 2 minutes. Administered 1 carpules of Lidocaine, 2% with Epinephrine 1:100,000,. Cotton roll isolation achieved. Decay/existing lutheran removed, cavity prepared. Selectively etched enamel with 37% phosphoric acid, rinsed, and blot dried. OptiBond delaney applied and light-cured. Condensed packable composite shade A2 in light cured increments using Toffelmaire matrix band retainer and wedge. Finished with finishing burs, checked occlusion, verified proximal contacts and lutheran was polished. Rinsed and suctioned intraorally, advised patient to not eat until local anesthesia wears off. POST OPERATIVE Bitewing (single) RADIOGRAPH TAKEN. NOTE: Post camryn instructions given to patient,CAMRYN DONE BY NESTOR Boone Next Visit: Restorative. ----- Signed on Wednesday, April 10, 2024 at 2:34:52 PM ----- ----- Provider: [id number] Tessa Troncoso DDS -- Clinic: [place] ----- documented in this encounter [facility] 03-30-2024 History of Present illness Narrative Associated Order(s): Trigger Point Injection: right cervical paraspinals, left cervical paraspinals, right semispinalis capitis, left semispinalis capitis, right upper trapezius, left upper trapezius Post-Procedure Diagnose(s): Cervicalgia Images from the original note were not included. Patient ID: Betty Rosenberg is a 23 y.o. male here today for bilateral cervical trigger point injections for cervical myalgia. PROCEDURE: Trigger point injections LOCATION: cervical Surgeon: Kimmie Luz NP Purpose of the procedure: Trigger point injections were performed today due to the patient having significant cervical myalgias muscle spasms and pain. The risks and benefits of the procedure were explained to the patient risks included but were not limited to: bleeding, infection, pneumothorax and pain. During consent for the procedure, the patient denies cow milk allergy, the patient verbally consented for the procedure. The targeted areas were cleaned with an alcohol. The injections were done using Clean technique and cervical anesthetic. The patient's cervical Muscles were injected today with a physiologic solution of Depo-Medrol 40 mg/ 1 ml, Marcaine 0.25 percent 3 ml on each side. The patient tolerated the procedure well without complications. Trigger Point Injection: right cervical paraspinals, left cervical paraspinals, right semispinalis capitis, left semispinalis capitis, right upper trapezius, left upper trapezius on 03/30/2024 1:17 PM Indications: myalgia Details: 25 G needle Medications: 4 mL bupivacaine 0.25 %; 80 mg methylPREDNISolone acetate 40 MG/ML Procedure, treatment alternatives, risks and benefits explained, specific risks discussed. Consent was given by the patient. Plan Bilateral cervical trigger point injections, 3 mL each side. Continue with stretching and heat or ice The diagnosis was all discussed with the patient. All questions were answered and they agreed with the treatment plan. Patient will call if there are any new issues or questions. Follow up in 4-6 weeks documented in this encounter [facility] 03-19-2024 Telephone encounter Note Patient is returning a missed call from the clinic about his crown. Pls call pt @ [phone] Thank you I sent a message ton [facility] via [employer] [facility] 03-19-2024 Miscellaneous Notes Patient is returning a missed call from the clinic about his crown. Pls call pt @ [phone] Thank you I sent a message ton [facility] via [employer] Pt calling again wanting to know if prior auth was sent to pt insurance company for [place]. Pt called office 02/19/24 and has not heard back yet. Pt can be reached at [phone]. Message sent to [facility] 03/17/24 at 152 pm documented in this encounter [facility] 03-17-2024 Telephone encounter Note Pt calling again wanting to know if prior auth was sent to pt insurance company for [place]. Pt called office 02/19/24 and has not heard back yet. Pt can be reached at [phone]. Message sent to [facility] 03/17/24 at 152 pm [facility] 03-17-2024 Miscellaneous Notes Pt calling again wanting to know if prior auth was sent to pt insurance company for [place]. Pt called office 02/19/24 and has not heard back yet. Pt can be reached at [phone]. Message sent to [facility] 03/17/24 at 152 pm documented in this encounter [facility] 03-09-2024 History of Present illness Narrative Images from the original note were not included. Physical Therapy Treatment Visit Patient Name: Betty Rosenberg Today's Date: 03/09/2024 Encounter Diagnoses Name Primary? Rotator cuff impingement syndrome of right shoulder Yes Shoulder joint hypermobility Visit number: 06/20 Timed Code Treatment Minutes: 30 minutes Total Treatment Time: 30 minutes Time In: 0930 Time Out: 1000 History: Pt. Presents to PT with c/c of right shoulder pain which started years ago and continues to get worse. Pt. Tried PT 3 visits of PT in November 2023 for his right shoulder pain but was discharged due to unable to tolerate exercises in PT and was referred back to provider for more testing. Pt. Reports now he Has to try 6 weeks of PT before insurance will approve of MRI of right shoulder. Pt. Is in constant whole body pain. Pt. Has neck pain, jaw pain, spinal pain, right hip pain, and right knee pain. Pt. Has difficulty sleeping at night due to pain. Pt. Has N/T sensation in his neck, back, and legs. 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 Pt. Has to depend on other people for help with daily tasks due to severe pain. Pt. Reports he feels his health is so bad he will be in a correction by next year. Precautions: universal, history poor eating habits. (Anorexia) due to jaw pain and does not want to eat Subjective: Pt continues to have constant severe right shoulder pain. Does not do anything all day due to shoulder pain. Very frustrated he has to do PT before MRI and feels PT is making his shoulder hurt worse. Pain: 5-8/10 Objective: PT Evaluation (02/26/24) Right shoulder AROM: flexion 160 degrees, abduction 150 degrees, IR L5, ER occiput Right shoulder Flexibility: latissimus dorsi muscle tightness Observation: patient demonstrates grimacing with all shoulder movements, pt. Reports he feels his shoulder is going to pop out of place while reaching overhead. Pt. Keeps shoulder is guarded position. Shoulder strength: right shoulder flexion 4-/5, abduction 3+/5, ER 4-/5, IR 4-/5, biceps 4/5 Palpation: TTP right anterior shoulder pain Treatment: Education: HEP education with demonstration, Educated on Eval Findings and POC Manual Therapy: (minutes) PROM, STM right shoulder, pec, and bicep Passive ROM, Joint mobilization, Soft Tissue Mobilization, Myofascial Release, Muscle Energy Technique, Neural Mobilization, Myofascial Cupping, Dry Needling, IASTM, and Scar mobilization Therapeutic Exercise: (30 minutes) Strength, Endurance, Flexibility, ROM, HEP, Neural Mobilization, Power, and Core Stability Therapeutic Activity: Exercises to improve dynamic activities, functional tasks, functional mobility to return to prior activity level Neuromuscular re-education: Balance Training, Muscle Facilitation, Dynamic Stability, Core Stabilization, and Blood Flow Restriction Training (BFRT) Modalities: (10 minutes) MHP right shoulder. Heat, Ice, Electrical Stimulation, Ultrasound, Cervical Mechanical Traction, Lumbar Mechanical Traction, Iontophoresis, and Fluidotherapy Assessment: Pt. Has participated in 4 PT session with start of POC on 02/26/24 for right shoulder pain/instability. No progress toward PT goals. Prone IYT increased his shoulder pain and he felt his shoulder was going to pop out of place. Pt. Has one additional PT and recommend PT note to Justus GEORGES to tell him conservative PT treatment has failed and is making his shoulder pain worse. Outcome Measure: 0/80 UEFS Short Term Goal: To be met in 2 weeks Goal 1: Pt to be instructed in home exercise program. 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 Goal 2: Pt. Will report of 3/10 or less right shoulder pain while performing work/daily tasks to help improve his functional mobility. Goal 3: Pt. Will demonstrate full 175 degrees or greater AROM right shoulder elevation ROM to allow him to perform daily work/household tasks to help improve his quality of life. Goal 4: Pt. Will demonstrate 4+/5 or greater right shoulder strength grossly in all planes to help improve his functional mobility and perform work tasks with less pain. Goal 5: Pt. Will score 45 or greater on UEFS to help improve his functional mobility. Goal 6: Pt. Will demonstrate improve right shoulder joint stability to help improve his functional mobility to improve his quality of life. Pt will benefit from skilled PT for 3x/week from 02/26/24 to 05/06/24 to address the above impairments. I hereby deem this POC medically necessary. Please sign below. Date: documented in this encounter [facility] 02-19-2024 Telephone encounter Note Pt calling in because they yannick spoke to their insurance company asking about the prior auth for a crown on tooth #3, pt says that tooth #2 is the one that needs the crown. He stated that the insurance never recieved please resend or contact pt to resolve issue so they can schedule with office. Pt ph:[phone] [facility] 02-19-2024 Miscellaneous Notes Pt calling in because they yannick spoke to their insurance company asking about the prior auth for a crown on tooth #3, pt says that tooth #2 is the one that needs the crown. He stated that the insurance never recieved please resend or contact pt to resolve issue so they can schedule with office. Pt ph:[phone] documented in this encounter [facility] 01-23-2024 History of Present illness Narrative [facility], Pt is ready for tx. Pt presented as a [place] with pain in the ___ side of his mouth. Radiograph taken today: PA X-ray. *Pt didn t want to do anything today, so only meds were considered. *Pt needs surgical extraction, so a referral to OS was made ready, and only meds were considered. *Pt didn t have insurance, and his case is not urgent, so only meds were considered. Discussed the medical necessity of the problem with the pt. Instructions given to pt. Pt understood the situation and is okay with medications for today. Pt will come back should things get worse. NV. EXAM documented in this encounter [facility] 12-16-2023 History of Present illness Narrative Images from the original note were not included. Subjective Patient ID: Betty Rosenberg is a 23 y.o. male. Chief Complaint: Follow-up of the Right Shoulder Last Surgery: No surgery found Last Surgery Date: No surgery found HPI Betty comes in today for his continued shoulder pain. He does feel it is more neurological associated with his neck. He is still focused on getting a boneDensity test which is not going to be ordered through this office. He has only made it to 3 physical therapy appointments and was told by the therapist that he needed a hold off until he came to this visit but did not have a specific reason with the therapist was thinking. He is still waiting for his neurologist to consider trigger point injections and evaluation of the cervical neck pain as well. Objective Ortho Exam Patient has demonstrates very similar mobility seems to be comfortable at rest. He does get off track and talk about pain through his entire right side not associated with the shoulder. Image Results: No image results found. Assessment/Plan Encounter Diagnoses: Rotator cuff impingement syndrome of right shoulder Shoulder joint hypermobility No orders of the defined types were placed in this encounter. He is encouraged today to follow through with neurology consult and consideration of injections and completion of full 4-6 weeks 3 times a week physical therapy before injection is considered which will need to be performed prior to any MRI authorization. Follow up if symptoms worsen or fail to improve upon release of neurologist. documented in this encounter [facility] 12-16-2023 Instructions JOSÉ MANUEL Martinez - 12/16/2023 1:00 PM EDT He is encouraged today to follow through with neurology consult and consideration of injections and completion of full 4-6 weeks 3 times a week physical therapy before injection is considered which will need to be performed prior to any MRI authorization. documented in this encounter [facility] 11-15-2023 History of Present illness Narrative GENERAL HISTORY AND PHYSICAL: NAME: Betty Rosenberg : 2000 HISTORY OF PRESENT ILLNESS: Betty Rosenberg is an 23 y.o. male is here for orthopedic evaluation right shoulder pain. He was just seen by his neurologist yesterday and has had history of trigger point injections with helped and is going to set up new series of trigger point injections in his neck. Patient has numerous complaints of varies major anywhere from poor diet bad teeth concerns of osteoporosis states that he is hoping to be able to quit his job because of his shoulder. Patient is complaining of right elbow right hand joint pain thinks he has arthritis everywhere very sporadic thought process. He has been seen in this office in the past and was worked up and treated for carpal tunnel and states that he has about 50 percent better from that. PAST MEDICAL HISTORY: Past Medical History: Diagnosis Date TMJ (dislocation of temporomandibular joint) PAST SURGICAL HISTORY: No past surgical history on file. SOCIAL HISTORY: Social History Occupational History Not on file Tobacco Use Smoking status: Never Smokeless tobacco: Never Substance and Sexual Activity Alcohol use: Never Comment: Caffeine: 1-2 cups per day Drug use: Yes Types: Marijuana Sexual activity: Not on file ALLERGIES: No Known Allergies MEDICATIONS: Current Outpatient Medications Medication Instructions carBAMazepine (TEGRETOL) 200 mg, Oral, 2 times daily cyclobenzaprine (FLEXERIL) 10 mg, Oral, 3 times daily PRN diclofenac sodium (Voltaren) 1 % gel Apply to neck area three times/day REVIEW OF SYSTEMS: Review of Systems General: Denies appetite or significant weight change. Denies fever, chills or night sweats. Denies lightheadedness. ENT: Denies dry mouth, sore throat or swollen glands. Denies difficulty swallowing. Denies ear pain. Respiratory: Denies chest pain, SOB, cough or wheezing. Denies asthma or pneumonia symptoms. Cardiovascular: Denies CP or palpitations. No syncope or dyspnea on exertion. Gastrointestinal: Denies nausea or vomiting. Denies heartburn or abdominal pain. Denies diarrhea. Genitourinary: Denies frequent or painful urination. Musculoskeletal: See HPI for comments. Integumentary: Denies rash, lesion or skin infection. Neurologic: Denies dizziness, headache or seizure history. Vitals: Body mass index is 22.63 kg/m . PHYSICAL EXAM: Physical Exam Patient maintains good mobility of the right shoulder he does have crepitus with range of motion and abduction beyond 100 degrees forward flexion of 60 degrees internal rotation to the thoracic spine external rotation from neutral is 95 degrees. Does seem to have some hypermobility of the joint with no instability or apprehension. There is no erythema there is no warmth or fever of the joint he has got good rotator cuff strength. He does not appear malnutrition. No orders of the defined types were placed in this encounter. Images from [facility] had been pushed into the PACS system and appear to be normal age-appropriate with no evidence of osteoarthritis or malformation no dislocation no evidence of significant AC arthritis or proximal migration of the humeral head. ASSESSMENT: Rotator cuff impingement syndrome of right shoulder Shoulder joint hypermobility PLAN: Patient was offered a cortisone injection for his bursitis and impingement type pain but declined. He is going to be having cervical neck trigger point injections and would like to wait till after that is completed. He is willing to go to organized therapy and Gee through nose to work on strengthening and stability of his shoulder. I will see him back once he has completed 3 times a week for 4 weeks therapy must complete every visit. Cold pack to the shoulder 20 minutes several times a day as well as use of Tylenol and/or NSAIDs of choice. JOSÉ MANUEL Martinez documented in this encounter [facility] 11-15-2023 Instructions JOSÉ MANUEL Martinez - 11/15/2023 10:30 AM EDT Patient was offered a cortisone injection for his bursitis and impingement type pain but declined. He is going to be having cervical neck trigger point injections and would like to wait till after that is completed. He is willing to go to organized therapy and Gee through nose to work on strengthening and stability of his shoulder. I will see him back once he has completed 3 times a week for 4 weeks therapy must complete every visit. Cold pack to the shoulder 20 minutes several times a day as well as use of Tylenol and/or NSAIDs of choice. documented in this encounter [facility] 11-12-2023 History of Present illness Narrative Images from the original note were not included. Chief Complaint Patient presents with Neck Pain Patient is here today for follow-up of neck pain. I am following the plan of care established by Dr. Hawley who is present in the office today and supervising care. Subjective Patient had trigger injections on 06/20/23. Patient states his neck pain is 10x worse and is now having shoulder pain. The injections did help. He is seeing the orthopedic this month for the shoulder pain. He did try the tegretol but is no longer taking it due to staving himself . He states he can not eat due to dental complications. Was in the psych donnelly for the issues. He did not sign the record release in [place]. Past Medical History: Diagnosis Date TMJ (dislocation of temporomandibular joint) No past surgical history on file. Family History Problem Relation Name Age of Onset Cancer Father Social History Tobacco Use Smoking status: Never Smokeless tobacco: Never Substance Use Topics Alcohol use: Never Comment: Caffeine: 1-2 cups per day Allergies: Patient has no known allergies. General: No fever or chills HEENT: No nasal congestion or runny nose Pulmonary: No shortness of breath or cough Cardiovascular: No chest pain or palpitations GI: No nausea or vomiting : No dysuria or hematuria Musculoskeletal: No new aches or pains or muscle weakness Infectious: no recurrent fevers or infections Dermatologic: No rashes or skin lesions Neurologic: No new headaches or dizziness Vitals: 11/12/23 0922 BP: 121/73 Pulse: 69 Body mass index is 22.63 kg/m . weight: 136 lb Neurologic exam: General: Normal body habitus, cooperative, pleasant Mental status: Awake, alert to person, place and time. Recent and remote memory are intact. Attention and concentration are normal. Fund of knowledge is appropriate for level of education. HEENT: NC/AT Cranial nerves: CN II: Visual vicente full to confrontation. No loss of vision CN III, IV, : pupils equal round and reactive to light. Extraocular movements intact. No ptosis present. CN V: Facial sensation is normal. CN VII: Full and symmetric facial movement. CN VIII: Hearing is normal CN IX and X: Palate elevates symmetrically. CN XI: Shoulder shrug is normal bilaterally. CN XII: Tongue is midline without atrophy or fasciculation. Speech: Clear and fluent no aphasia or dysarthria Pronator drift: Negative bilateral upper extremity Coordination: Intact, no signs of dysmetria Good finger to nose and rapid alternating movements Sensory: Sensation is intact to light, temperature and vibratory touch throughout four extremities. Pinprick intact in all four extremities. Motor: LUE 5/5 RUE 4/5 LLE 5/5 RLE 5/5 Tone: Physiologic, no tremor, bradykinesia or rigidity DTR: Bilateral Biceps 2/4 Bilateral BR 2/4 Bilateral Patellar 2/4 No spasticity Gait: Normal to casual gait Romberg's Negative Assessment/Plan Diagnoses and all orders for this visit: Cervicalgia - diclofenac sodium (Voltaren) 1 % gel; Apply to neck area three times/day Paresthesia of skin Chronic neck pain Anesthesia of skin Myalgia Muscle spasm - diclofenac sodium (Voltaren) 1 % gel; Apply to neck area three times/day TMJ dysfunction 23-year-old male with a variety of different complaints. He was initially sent for right neck pain. This is more in the posterior right hilum. There is no decreased range of motion. He does complain of it cracking and popping at times. He does have some increased tone which appears to be more muscle spasms and myalgias causing the neck pain. He complains of some numbness and tingling going down into his arms. He is seeing ortho for right shoulder pain next week. Recent EMG normal 04/2022. This may represent more of a fibromyalgia type of syndrome. Reports having atrophy and weakness but when tested in the office he had absolutely no atrophy, there is no side to side difference when measuring the distal and proximal forearm and mid palm circumference. There is no fasciculations. He did report weakness initially as well. His right hand is a little weaker on exam today, may be related to issue with his shoulder. It does look like he was seen by Dr. Muñoz who also had no true etiology for his symptoms. He is benefiting from the voltaren gel and requests refill. He did benefit for 3 months from bilateral cervical trigger point injections. He had no pain for 3 months post injection and would like to schedule these again. . Complains of some numbness and tingling down into his legs and some hip pain. I did offer an EMG of the legs however we are going to hold at this time. This stable. . He was working with a TMJ specialist at [facility] and was getting trigger point injections which sound like were made up of anesthetic agent such as lidocaine and did not help very much. We were unable to obtain these records. He has not had injections in many months now. He states they told him he had a pinched SCM. He is continuing with severe teeth pain and can not eat due to this. He states he needs teeth pulled. He can not go to [facility] to the dentist as he missed 3 visits and they will no longer see him. The dental issue is his biggest issue and we can not help him with this. We did start some tegretol at last visit and he states that he took it for a day or two and that was it. He does not want any meds due to not being able to eat. . He did end up in the psych unit again between visits for a comment he made that he wanted to harm himself due to the pain. It does not seem that he has family support. He does live with his dad. He states he never got his license as his dad would drive with him, it is expensive, although his younger brother has his license. He needs to find a way to get back in with a dentist. He reports he was in psych unit over [place] for suicide thoughts due to TMJ pain He stated he has about 30 pill bottles of meds he as tried for his pain in the past. He needs to get back to doing regular exercises. . Initial visit he did state at one time he did not want to take any pills however then he asked why the gabapentin works for him. He went on to say he just needs oxy 5mg twice a day and gabapentin and he will be fine. Gabapentin could be for a degree of fibromyalgia as gabapentin is indicated for fibromyalgia usage. At this time I have no reason to start him on the gabapentin and definielty not the oxy. Gabapentin in the past helped with TMJ then [facility] dentist said it was muscular then PCP stopped prescribing it. He was on 300mg BiD-TID, he believes. We did start some tegretol for paresthesias to the right side of his face and he only took it for 1-2 days. . Review and summary of old records: TSH 0.578, B12 404, folate 16, RF, lyme, YESENIA neg EMG in 2019 that showed a minimal right carpal tunnel syndrome. He had a repeat EMG 05/03/22 that was normal with no residual carpal tunnel syndrome. There was no radiculopathy or other. . . . Plan schedule bilateral cervical TPI continue Voltaren gel up to tid for the neck He is not taking tegretol or flexeril He is to be doing a regular home exercise program both for strengthening and stretching Ice and heat to the neck He could try massage to the neck Continue with ortho eval for right shoulder This was discussed with the patient, all questions were answered and they agreed with the treatment plan. The patient is to call with any worsening of the condition or new symptoms. Return to clinic: 6-8 weeks after trigger injections documented in this encounter [facility] 07-24-2023 History of Present illness Narrative ----- Monday, July 24, 2023 at 4:26:32 PM ----- ----- Provider: [id number] - Onur Davila, Resident -- Clinic: [place] ----- [facility] Patient is scheduled for Gnosticism on tooth #10-DL and 11-MDL. Reviewed Medical History. Pt exhibited the following conditions: No significant medical history Patient is ready for treatment. Topical Benzocaine gel applied at the injection site for 2 minutes. Administered 1 carpules of Lidocaine, 2% with Epinephrine 1:100,000,. Isolation achieved. Decay/existing lutheran removed, cavity prepared. Selectively etched enamel with 37% phosphoric acid, rinsed, and blot dried. OptiBond delaney applied and light-cured. Condensed packable composite shade a3 in light cured increments using Mylar strip and wedge. Finished with finishing burs, checked occlusion, verified proximal contacts and lutheran was polished. Rinsed and suctioned intraorally, advised patient to not eat until local anesthesia wears off. POST OPERATIVE Periapical (single) RADIOGRAPH TAKEN. NOTE: In the post op x ray I saw that mesial lutheran on # 10 was fractured. It has to be replace in his next appointment Next Visit: Restorative ----- Signed on July at 8:19:57 AM ----- ----- Provider: [id number] - Christian Troncoso DDS -- Clinic: [place] ----- documented in this encounter [facility] 07-03-2023 History of Present illness Narrative [facility] [address] [place] [place] [address] Patient: Betty Rosenberg Sex: male : 2000 Age: 22 y.o. PCP: Darin Montoya APRN-PIPE [employer] ALIGNER 07/03/2023 Betty Rosenberg is here for a(n) initial consultation. Patient reports he has neck pain for 6 years. It started follow ing tooth extraction. Patient has pain in his right neck down his right arm to his fingers. TPI offered no relief. Chief Complaint Patient presents with Neck Pain HPI: Neck Pain This is a chronic problem. The current episode started more than 1 year ago (2017). The problem occurs constantly. The problem has been gradually worsening. Associated with: TMJ, some teeth removed. The pain is present in the midline, right side and occipital region (Rt shoulder, RUE, Rt Eye). The pain is at a severity of 7/10. The pain is moderate. The symptoms are aggravated by bending, twisting, coughing and sneezing (sitting, standing, lifting, lying, pushing, pulling,transitioning, cold). The pain is Same all the time. Stiffness is present All day. Associated symptoms include headaches (Daily), numbness (RUE, Rt face), tingling (RUE) and weakness (RUE). Pertinent negatives include no chest pain or fever. He has tried NSAIDs, oral narcotics, muscle relaxants, ice and heat (flexeril, voltaren gel, tegretol, cyclobenzaprine, Prev PT 2020, Prev Injs, ibuprofen) for the symptoms. The treatment provided moderate relief. The effect of pain on patient's ADLS: Moderate Impairment. Past Medical History: Diagnosis Date Anorexia Anxiety Carpal tunnel syndrome Chipped tooth Depression hospitalized 03/09 Headache Low back pain Neck pain TMJ (temporomandibular joint disorder) History reviewed. No pertinent surgical history. No Known Allergies Family History Problem Relation Age of Onset Lung disease Father Heart disease Father Cancer Father Social History Socioeconomic History Marital status: Single Spouse name: Not on file Number of children: Not on file Years of education: Not on file Highest education level: Not on file Occupational History Not on file Tobacco Use Smoking status: Never Smokeless tobacco: Never Vaping Use Vaping status: Never Used Substance and Sexual Activity Alcohol use: Yes Comment: ocassional Drug use: Yes Types: Marijuana Sexual activity: Defer Other Topics Concern Not on file Social History Narrative Not on file Social Determinants of Health Financial Resource Strain: Not on file Food Insecurity: No Food Insecurity (07/03/2023) Hunger Screening Food Insecurity - Worry: Never True Food Insecurity - Inability: Never True Transportation Needs: Not on file Physical Activity: Not on file Stress: Not on file Social Connections: Not on file Interpersonal Safety: Not on file Housing Instability: Not on file Review of Systems Constitutional: Negative for chills and fever. HENT: Positive for dental problem. Eyes: Negative. Respiratory: Negative for cough and shortness of breath. Cardiovascular: Negative for chest pain. Gastrointestinal: Negative. Endocrine: Negative. Genitourinary: Negative. Musculoskeletal: Positive for back pain and neck pain. Skin: Negative. Allergic/Immunologic: Negative. Neurological: Positive for tingling (RUE), weakness (RUE), numbness (RUE, Rt face) and headaches (Daily). Hematological: Negative. Psychiatric/Behavioral: Negative. Vital Signs: BP 110/75 Pulse 75 Ht 170.2 cm (5' 7 ) Wt 63.5 kg (140 lb) SpO2 98% BMI 21.93 kg/m Physical Exam: GENERAL - Healthy patient that appears stated age. HEENT - Normocephalic / Atraumatic, Extraoccular movements intact, trachea midline, thyroid within normal limits. CV - pulse regular, Warm extremities with appropriate color of nailbeds. RESP - No obvious wheezing, No Shortness of Breath, No overexertion response to exam maneuvers. COORDINATION - remains intact. PSYCH - Alert and Oriented x4, Attentive and appropriate, constitutionally normal, displays normal mood and affect per situation, answered questions appropriately during examination, demonstrated appropriate attention during discussion, demonstrated appropriate cognitive reasoning and understanding of the medical condition by asking appropriate questions regarding the diagnosis and risks/benefits/alternatives of treatment modalities. No obvious deficits in memory, reasoning, or intellect. Cervical: SKIN - No rashes or bruising in the area of the patient s pain. LYMPH NODES - demonstrate no obvious enlargement. EXTREMITIES - Upper extremities are warm, with minimal edema and palpable pulses Tenderness to palpation noted in the cervical spine and paraspinal musculature. Pain is elicited with flexion, extension, and lateral rotation of the cervical spine. Range of motion is diminished with these motions due to pain. Facet palpation is noted to be somewhat tender but not concordant with the patient s normal pain complaints. STRENGTH - noted to be 5 out of 5 all muscle groups bilateral upper extremities including muscles involving shoulder flexion and abduction, elbow flexion and extension, as well as wrist flexion and extension and intrinsic muscles of the hand. No notable atrophy, fasciculations or spasm. SENSORY - No notable sensory deficits in the bilateral upper extremities to touch or pinprick in all dermatomal distributions with exception to decreased sensation in the Right C5, C6 dermatomal distribution(s). Spurlings sign is Positive Gait is normal. Assessment/Treatment Plan: Betty was seen today for neck pain. Diagnoses and all orders for this visit: Cervical radiculopathy - X-ray spine cervical 4 or 5 views; Future - Ambulatory referral to Physical Therapy; Future - MR brain with and without contrast; Future Cervical spine pain - X-ray spine cervical 4 or 5 views; Future - Ambulatory referral to Physical Therapy; Future - MR brain with and without contrast; Future Numbness of tongue - MR brain with and without contrast; Future Cervical spine xray Imaging/Diagnostic Testing - It is felt that additional diagnostic testing is necessary to further evaluate the patients current pain pathology. For this reason, we will order additional imaging/diagnostic testing noted above. It is hopeful that this study will identify a significant pain generator that will be amenable to therapy. It is felt that this modality is necessary due to the severity and chronicity of symptoms and physical exam findings combined with the lack of recent imaging/diagnostic testing of the area. Physical/Aquatic Therapy - It is felt that the patient will benefit from a course of physical therapy focusing on the above mentioned diagnosis. We will recommend that the physical therapist fully evaluate and treat at their discretion considering the modalities that are most useful for the condition being treated. This may include modalities of comfort including moist heat, ultrasound, and TENS therapy. It may also utilize manual therapy and myofascial release for the myofascial component of the patient s pain. It will likely advance to modalities aimed at stabilizing and strengthing the target area while improving range of motion as well. We are also requesting that the physical therapist send notes that will keep our clinic updated to the patient s progress. Brain MRI - It is felt that additional diagnostic testing is necessary to further evaluate the patients current pain pathology. For this reason, we will order additional imaging noted above. It is hopeful that this study will identify a significant pain generator that will be amenable to therapy. It is felt that this modality is necessary due to the severity and chronicity of symptoms and physical exam findings combined with the lack of recent imaging of the area. An MRI is specifically felt to be necessary due to the physical exam findings noted above and the patient s description of refractory pain in a neuropathic distribution that is not relieved by change in body position and interferes with the patient s activities of daily living Follow up 6-8 weeks The medications prescribed have been reviewed for medication interactions/contraindications and/or for upcoming procedures: continue current medication regimen without any changes. DISCUSSION: Treatment options discussed with patient and all questions answered to patient's satisfaction. Discussed the rules and regulations surrounding prescription of opioids and compliance at length. Failure to follow the rules and regulation will result in tapering and discontinuation of medications if applicable. Prescribed medication that requires intensive monitoring for toxicity We do not currently prescribe any controlled substance from this practice. The spine model was demonstrated and EMG was reviewed and used to explain the condition. OARRS: Reviewed. Scribe Statement: Scribed for and in the presence of ELLEN PAUL PA-C by Melissa Paulson CNA. Provider Statement: I, ELLEN PAUL PA-C, personally performed the services described in the documentation, as scribed by Melissa Paulson CNA in my presence, and it is both accurate and complete. Melissa Paulson CNA 07/03/23 1316 Ellen Paul PA-C 07/03/23 1343 [facility] History of Present illness Narrative [facility], pt is ready for tx. Pt is [...] wears off. NV: RESTOTooth: 6 Surface: DL documented in this encounter [employer] Work Phone: 03-13-2023 Discharge summary Note Date/Time March 13, 2023 11:44am 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 He tolerated [...] Instructions: Important Contact Information You can call [facility] at [phone] any time day or night if you have emergent questions or question regarding discharge instructions. If at any time you are feeling an increase inyour psychiatric symptoms, call your physician or behavioral healthcare provider. If any time you have thoughts of harming yourself or others contact one of the following: Call (available 08/10) Crisis Text Line (available 08/10) text 4HOPE to [phone] [facility] (available 8 a.m. Midnight) call [phone] ([phone]) Regular Diet No Activity Restrictions Instructions: Depression, Adult (DC), [facility] Behavioral Health [place] Instructions Prescriptions: New bupropion HCl 150 mg Tablet Extended Release 24 Hr 150 mg PO QAM 30 Days Qty: 30 0RF Follow Up: [facility] [Other] - 03/19/23 12:45 pm (Psychiatry: Saturday03/19/23 at 12:45pm with REG Araya in [place] office. ) [facility] [Other] - 04/23/23 10:15 am (Counseling: Saturday04/23/23 at 10:15am with Angela Umaña in the [place] office. ) Darin Montoya, MANAGER PROGRESSIVE CARE- [Primary Care Provider] - (Please contact for any medical needs or concerns.) Documented By: Shubham Ding MD 03/13/23 1142 Signed By: <Electronically signed by Shubham Ding MD> 03/13/23 1142 [facility] Work Phone: 1(168) 693-762212-27-2023 Hospital Discharge instructions Additional Instructions Important Contact Information You can call [facility] at [phone] any time day or night if you have emergent questions or question regarding discharge instructions. If at any time you are feeling an increase in your psychiatric symptoms, call your physician or behavioral healthcare provider. If any time you have thoughts of harming yourself or others contact one of the following: Call (available 08/10) Crisis Text Line (available 08/10) text 4HOPE to [phone] [facility] Line (available 8 a.m. Midnight) call [phone] ([phone]) Regular Diet No [facility] Work Phone: 1(806) 118-585312-26-2023 Progress note Author Shubham Ding [facility] March 12, 2023 12:38pm Note Date/Time March 12, 2023 12:38pm [facility] [address] [place] [address] Psychiatry Progress Note Signed Patient: Betty Rosenberg MR#: [id number] : 2000 Acct:[id number] Age/Sex: 22 / M Adm Date: 3 Loc: Room: [address] [place] [address] Type : ADM IN Attending Dr: Shubham [...] <Electronically signed by Shubham Ding MD> 03/12/23 9560 [facility] Work Phone: 1(195) 720-759612-25-2023 Progress note Author Shubham Ding [facility] March 11, 2023 10:28am Note Date/Time March 11, 2023 10:28am [facility] [address] [id number] Psychiatry Progress Note Signed Patient: Betty Rosenberg MR#: [id number] : 2000 Acct:[id number] Age/Sex: 22 / M Adm Date: 3 Loc: Room: [address] [place] [address] Type : ADM IN Attending Dr: Shubham [...] alternatives explained Documented By: Shubham Ding MD 03/11/231027 Signed By: <Electronically signed by Shubham Ding MD> 03/11/238 [facility] Work Phone: 1(438) 212-714012-24-2023 Progress note Author Shubham Ding [facility] March 10, 2023 10:19am Note Date/Time March 10, 2023 10:19am [facility] [address] [id number] Psychiatry Progress Note Signed Patient: Betty Rosenberg#: [id number] : 2000 Acct:[id number] Age/Sex: 22 / M Adm Date: 3 Loc: Room: [address] [place] [address] Type : ADM IN Attending Dr: Shubham [...] alternatives explained Documented By: Shubham Ding MD 03/10/231017 Signed By: <Electronically signed by Shubham Ding MD> 03/10/23 1019 [facility] Work Phone: 1(611) 302-734712-23-2023 History and physical note Author Shubham Ding [facility] March 09, 2023 10:41am Note Date/Time March 09, [address] 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 Review of symptoms: Constitutional: Denies chills and [...] homicidality, reported suicidality Insight: fair Judgment: fair [facility] Medical History Anxiety Carpal tunnel syndrome on [...] signed by Shubham Ding MD> 03/09/23 1041 [facility] Work Phone: 1(254) 552-637811-22-2023 History of Present illness Narrative* Onur Kapadia DDS - 02/06/2023 1:57 PM EST ----- Monday, February 06, 2023 at 2:01:57 PM ----- ----- Provider: [id number] Resident Michael -- Clinic: [place] ----- [facility] Patient is scheduled for Gnosticism on tooth #4 and 5 surface B5. Reviewed Medical History. Pt exhibited the following conditions: No significant medical history Patient is ready for treatment. Topical Benzocaine gel applied at the injection site for 2 minutes. Administered 1 carpules of Articaine, 4% with Epinephrine 1:100,000,. Isolation achieved. Decay/existing lutheran removed, cavity prepared. Selectively etched enamel with 37% phosphoric acid, rinsed, and blot dried. OptiBond delaney applied and light-cured. Condensed packable composite shade a2 in light cured increments using Mylar strip and wedge. Finished with finishing burs, checked occlusion, verified proximal contacts and lutheran was polished. Rinsed and suctioned intraorally, advised patient to not eat until local anesthesia wears off. POST OPERATIVE RADIOGRAPH TAKEN. Next Visit: Restorative ----- Signed on Monday, February 06, 2023 at 2:08:28 PM ----- ----- Provider: [id number] - Christian Troncoso DDS -- Clinic: [place] ----- documented in this [id number] Telephone encounter Note* Telephone Encounter - Karla Tony/13/2023 1:30 PM EDT Situation: UPDATE Background: Pt would like Provider Suri to msg him on mychart. Pt states he is unable to msg provider because their msgs have . Pt would like to stay in contact with provider via [employer] in order to schedule his trigger point appts. Pt does not want to call in to be scheduled. Pt last seen 11/16/22 w [facility] Assessment: n/a Recommendation: VIDHYA Thank you :) [facility] [id number] Miscellaneous Notes* Telephone Encounter - Karla Tony - 12/28/2022 1:30 PM EDT Situation: UPDATE Background: Pt would like Provider Suri to msg him on mychart. Pt states he is unable to msg provider because their msgs have . Pt would like to stay in contact with provider via [employer] in order to schedule his trigger point appts. Pt does not want to call in to be scheduled. Pt last seen 11/16/22 w S[facility] Assessment: n/a Recommendation: VIDHYA Thank you :) Msg sent to [facility] on 12/28/22 documented in this [id number] History of Present illness Narrative* Alfonzo Mccord DDS - 11/16/2022 12:00 AM EDT ----- Wednesday, November 16, 2022 at 11:09:37 AM ----- ----- Provider: [id number] Bills -- Clinic: [place] ----- Patient returned for trigger point injections cycle 1 # 3 Referring physician: Cherise Ramirez MD DMD Reiterated the importance of maintaining regular appointments for TPI, pursuing PT and [facility] work. Reports good pain [...] 2022 at 9:53:55 PM ----- ----- Provider: [id number] Tessa Cruz DMD -- Clinic: [place] ----- documented in this [id number] History of Present illness Narrative* Javed Mendez DDS - 10/11/2022 11:19 AM EDT ----- September at 2:40:08 PM ----- ----- Provider: [id number] Resident Tee -- Clinic: [place] ----- COMPOSITE METHOD[employer] Patient is scheduled for Gnosticism on tooth #31 surface MOLB. Reviewed Medical History. Pt exhibited the following conditions: nothing mentioned in EPIC Patient is ready for treatment. Topical Benzocaine gel applied at the injection site for 2 minutes. Administered 1 carpules of Lidocaine, 2% with Epinephrine 1:100,000,. Rubber dam isolation achieved. Decay/existing lutheran removed, cavity prepared.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 8 [facility] Summary Purpose Family History No Family History [...] Referral Specialty Diagnoses / Procedures Referred By Contac t Referred To Contact Radiology Diagnoses Cervical radiculopathy Cervical spine pain Numbness of tongue Procedures MR brain with and without contrast Ellen Paul PA-C [address], [address] [place] [id number] Referral ID Status Reason Start Date Expiration Date V isits Requested Visits Authorized [id number] Pending Review 07/03/2023 07/02/2024 1 1 Specialty Diagnoses / Procedures Referred By Contac t Referred To Contact Rehabilitation Diagnoses Cervical radiculopathy Cervical spine pain Ellen Paul PA-C [address], [address] [place] [address] [facility] [address] [place] [address] Referral ID Status Reason Start Date Expiration Date V isits Requested Visits Authorized [id number] Closed Specialty Services Required 07/03/2023 07/02/2024 1 1 Specialty Diagnoses / Procedures [facility] Referred To Contact Physical Therapy Diagnoses Rotator cuff impingement syndrome of right shoulder Shoulder joint hypermobility Procedures CA OFFICE/OUTPATIENT [facility] 60 MINUTES Justus Leggett PA [address] [facility] [place] [address] Brian Seymour, PT 112 [facility] [address] [place] [address] Referral ID Status Reason Start Date Expiration Date Visits Requested Visits Authorized [id number] Pending Review Specialty Services Required 11/15/2023 05/13/2024 1 1 Scheduling Instructions Please call to schedule. Specialty Diagnoses / Procedures Referred By Clint franks Referred To Contact Physical Therapy Diagnoses Myalgia of mastication muscle Myalgia of muscle of neck Arthralgia of right temporomandibular joint Ruel Cruz DMD [address] [place] [id number] Physical Therapy [address] [place] [address] Referral ID Status Reason Start Date Expiration Date Visits Requested Visits Authorized [id number] [facility]ending [facility]2022 06/15/2023 10 10 Scheduling Instructions SCHEDULING INSTRUCTIONS: Call [phone] to schedule your Physical Therapy appointment. We offer therapy services at many convenient locations. Please arrive 20 minutes prior to your appointment to register. It is important to bring your insurance cards and a personal identification card to your appointment. If you are unable to keep your appointment, cancel or reschedule by calling [phone] or via VISEO. Thank you! Question Answer Is this for [...] Diagnoses Myofascial pain Cherise Ramirez DMD, MD [address] [place] [address] [facility] [address] [place] [address] Referral ID Status Reason Start Date Expiration Date Visits Requested Visits Authorized [id number] Pending Review [facility] hospital 05/22/2022 05/23/2023 3 3 Question Answer Referral [...] team informatio n (unrecognized section and content) Tractor Operator Relationship Specialty Start Date End Date Erum Laboy DDS [address] [place] [address] Fellow Dentistry 06/16/22 Cherise Ramirez DMD, MD [address] [place] [address]43 Physician Oral & Maxillofacial Surgery 06/16/22 Tractor Operator Relationship Specialty Start Date End Date Erum Laboy DDS [address] [place] [address] 49382 Fellow Dentistry 06/16/22 Cherise Ramirez DMD, MD [address] [place] [address]99 Physician Oral & Maxillofacial Surgery 06/16/22 Team Status: Active Member Role Status Dates Darin Montoya , [facility]- Primary Care Provider Active Team Status: Inactive Member Role Status Dates Darin Montoya , [facility]- Primary Care Provider Active Tana Ca MD Admit Provider, Attending Pr ovider Active Tractor Operator Relationship Specialty Start Date End Date Erum Laboy DDS [address] [place] [address]10 Fellow Dentistry 06/16/22 Cherise Ramirez DMD, MD [address] [place] [address] 94178 Physician Oral & Maxillofacial Surgery 06/16/22 Tractor Operator Relationship Specialty Start Date End Date Erum Laboy DDS [address] [place] [address] 35163 Fellow Dentistry 06/16/22 Cherise Ramirez DMD, MD [address] [place] [address] 29000 Physician Oral & Maxillofacial Surgery 06/16/22 Tractor Operator Relationship Specialty Start Date End Date Erum Laboy DDS [address] [place] [address] 42976 Fellow Dentistry 06/16/22 Cherise Ramirez DMD, MD [address] [place] [address] 76188 Physician Oral & Maxillofacial Surgery 06/16/22 Tractor Operator Relationship Specialty Start Date End Date Erum Laboy DDS [address] [place] [address] 92416 Fellow Dentistry 06/16/22 Cherise Ramirez DMD, MD [address] [place], [place] [phone] Physician Oral & Maxillofacial Surgery 06/16/22 Tractor Operator Relationship Specialty Start Date End Date Erum Laboy DDS [address] [place] [address] 41179 Fellow Dentistry 06/16/22 Cherise Ramirez DMD, MD [address] [place] [address] 47272 Physician Oral & Maxillofacial Surgery 06/16/22 Team Status: Inactive Member Role Status Dates Darin Montoya , [facility]- Primary Care Provider Active Christiano Phelps DO Emergency Provider Active Shubham Ding MD Admit Provider, Attending Provider Active Team Status: Inactive Member Role Status Dates Darin Montoya , [employer] Primary Care Provider Active Shubham Ding MD Admit Provider, Attending Provider Active Team Status: Active Member Role Status Dates Darin Montoya , [facility]- Primary Care Provider Active Tana Ca MD Attending Provider Active Tractor Operator Relationship Specialty Start Date End Date Erum Laboy DDS [address] [place] [address] 96303 Fellow Dentistry 06/16/22 Cherise Ramirez DMD, MD [address] [place] [address] 76565 Physician Oral & Maxillofacial Surgery 06/16/22 Tractor Operator Relationship Specialty Start Date End Date Erum Laboy DDS [address] [place] [address]17 Fellow Dentistry 06/16/22 Cherise Ramirez DMD, MD [address] [place] [address]87 Physician Oral & Maxillofacial Surgery 06/16/22 Tractor Operator Relationship Specialty Start Date End Date Erum Laboy DDS [address] [place] [address] 91947 Fellow Dentistry 06/16/22 Cherise Ramirez DMD, MD [address] [place] [address]259 Physician Oral & Maxillofacial Surgery 06/16/22 Alfonzo Mccord DDS [address] [place] [address] 03828 Fellow Dentistry 10/20/22 Tractor Operator Relationship Specialty Start Date End Date Erum Laboy DDS [address] [place] [address] 27620 Fellow Dentistry 06/16/22 Cherise Ramirez DMD, MD [address] [place] [address] 30815 Physician Oral & Maxillofacial Surgery 06/16/22 Alfonzo Mccord DDS [address] [place] [address] 69485 Fellow Dentistry 10/20/22 Tractor Operator Relationship Specialty Start Date End Date Garrykim Erum [address] [address] Fellow Dentistry 06/16/22 Cherise Ramirez DMD, MD [address] [place] [address] 94951 Physician Oral & Maxillofacial Surgery 06/16/22 Alfonzo Mccord DDS [address] [place] [address] 05655 Fellow Dentistry 10/20/22 Tractor Operator Relationship Specialty Start Date End Date Erum Laboy [address] [address] Fellow Dentistry 06/16/22 Cherise Ramirez DMD, MD [address] [place] [address] 32717 Physician Oral & Maxillofacial Surgery 06/16/22 Alfonzo Mccord DDS [address] [place] [address] 47617 Fellow Dentistry 10/20/22 Tractor Operator Relationship Specialty Start Date End Date Rosalind Hawley DO [address] [place] [address] Referring Physician Neurology 06/03/23 Keena Alvarez MD [address] [place] [address] Primary Care Provider Family Medicine 11/15/23 Tractor Operator Relationship Specialty Start Date End Date Rosalind Hawley DO [address] [place] [address] Referring Physician Neurology 06/03/23 Keena Alvarez MD [address] [place] [address] Primary Care Provider Family Medicine 11/15/23 Tractor Operator Relationship Specialty Start Date End Date Keena Alvarez MD [address] [place], [place] [phone] Primary Care Provider Family Medicine 11/15/23 Tractor Operator Relationship Specialty Start Date End Date Keena Alvarez MD [address] [place], [place] [phone] Primary Care Provider Family Medicine 11/15/23 Tractor Operator Relationship Specialty Start Date End Date Keena Alvarez MD [address] [place] [address] Primary Care Provider Family Medicine 11/15/23 Kimmie Luz, MANISHA [address] [place], [place] Nurse Practitioner Neurology 01/13/24 Rosalind Hawley DO [address] [place] [address] Referring Physician Neurology 01/13/24 Tractor Operator Relationship Specialty Start Date End Date Keena Alvarez MD [address] [place] [address] Primary Care Provider Family Medicine 11/15/23 Kimmie Luz NP [address] [place] [address] Nurse Practitioner Neurology 01/13/24 Rosalind Hawley DO [address] [place] [phone] Referring Physician Neurology 01/13/24 Tractor Operator Relationship Specialty Start Date End Date Erum Laboy DDS [address] [place] [address] 52700 Fellow Dentistry 06/16/22 Cherise Ramirez DMD, MD [address] [place] [address] 90012 Physician Oral & Maxillofacial Surgery 06/16/22 Alfonzo Mccord DDS [address] [place] [address] Fellow Dentistry 10/20/22 Tractor Operator Relationship Specialty Start Date End Date Rosalind Hawley DO [address] [place] [phone] Referring Physician Neurology 06/03/23 Keena Alvarez MD [facility]5 [place] [address] (Work) Primary Care Provider Family Medicine 11/15/23 Tractor Operator Relationship Specialty Start Date End Date Keena Alvarez MD [facility]5 [place] [address] Primary Care Provider Family Medicine 11/15/23 Kimmie Luz NP [address] Nurse Practitioner Neurology 01/13/24 Rosalind Hawley DO [address] [place] [address] Referring Physician Neurology 01/13/24 Tractor Operator Relationship Specialty Start Date End Date Keena Alvarez MD [facility]5 [place] [address] Primary Care Provider Family Medicine 11/15/23 Kimmie Luz NP [address] Nurse Practitioner Neurology 01/13/24 Rosalind Hawley DO [address] [place] [address] Referring Physician Neurology 01/13/24 Tractor Operator Relationship Specialty Start Date End Date Keena Alvarez MD [address] [place] [address] Primary Care Provider Family Medicine 11/15/23 Kimmie Luz NP [address] Nurse Practitioner Neurology 01/13/24 Rosalind Hawley DO [address] [place] [address], [place] [address] Referring Physician Neurology 01/13/24 Tractor Operator Relationship Specialty Start Date End Date Keena Alvarez MD 1265 [place] [address] Primary Care Provider Family Medicine 11/15/23 Kimmie Luz, MANISHA [address] [place] Nurse Practitioner Neurology 01/13/24 Rosalind Hawley DO [address] [place] [address] Referring Physician Neurology 01/13/24 Tractor Operator Relationship Specialty Start Date End Date Rosalind Hawley DO [address] [place] [address] Referring Physician Neurology 06/03/23 Tractor Operator Relationship Specialty Start Date End Date Rosalind Hawley DO [address] [place] [address] Referring Physician Neurology 06/03/23 Tractor Operator Relationship Specialty Start Date End Date Rosalind Hawley DO [address] [place] [address] Referring Physician Neurology 06/03/23 Keena Alvarez MD [address] [place] [address], [place] [address] Primary Care Provider Family Medicine 11/15/23 Tractor Operator Relationship Specialty Start Date End Date Rosalind Hawley DO [address] [place] [address] Referring Physician Neurology 06/03/23 Tractor Operator Relationship Specialty Start Date End Date Rosalind Hawley DO [address] [place] [address] Referring Physician Neurology 06/03/23 Keena Alvarez MD [address] [place] [address] Primary Care Provider Family Medicine 11/15/23 Tractor Operator Relationship Specialty Start Date End Date Rosalind Hawley DO [address] [place] [address] Referring Physician Neurology 06/03/23 Keena Alvarez MD [address]65 [place] [address] Primary Care Provider Family Medicine 11/15/23 Tractor Operator Relationship Specialty Start Date End Date Rosalind Hawley DO [address] [place] [address] Referring Physician Neurology 06/03/23 Keena Alvarez MD [address] [place] [address] Primary Care Provider Family Medicine 11/15/23 Tractor Operator Relationship Specialty Start Date End Date Rosalind Hawley DO [address] [place] [address] Referring Physician Neurology 06/03/23 Keena Alvarez MD [address] [place] [address] Primary Care Provider Family Medicine 11/15/23 Tractor Operator Relationship Specialty Start Date End Date Keena Alvarez MD [address] [place] [address] Primary Care Provider Family Medicine 11/15/23 Kimmie Luz NP [address] [place], [place] Nurse Practitioner Neurology 01/13/24 Rosalind Hawley DO [address] [place] [address] Referring Physician Neurology 01/13/24 Tractor Operator Relationship Specialty Start Date End Date Erum Laboy DDS [address] [place] [address] [phone] Fellow Dentistry 06/16/22 Cherise Ramirez DMD, MD [address] [place] [address] [phone] Physician Oral & Maxillofacial Surgery 06/16/22 Alfonzo Mccord DDS [address] [place] [address] [phone] Fellow Dentistry 10/20/22 Tractor Operator Relationship Specialty Start Date End Date Keena Alvarez MD [address] [place] [address] Primary Care Provider Family Medicine 11/15/23 Kimmie Luz NP [address] Nurse Practitioner Neurology 01/13/24 Rosalind Hawley DO [address] [address] Referring Physician Neurology 01/13/24 Tractor Operator Relationship Specialty Start Date End Date Keena Alvarez MD [address] [place] [address] Primary Care Provider Family Medicine 11/15/23 Kimmie Luz NP [address] [place] [address] Nurse Practitioner Neurology 01/13/24 Rosalind Hawley DO [address] [place] [address] Referring Physician Neurology 01/13/24 Tractor Operator Relationship Specialty Start Date End Date Keena Alvarez MD [facility]5 [place] [address] Primary Care Provider Family Medicine 11/15/23 Kimmie Luz NP [address] Nurse Practitioner Neurology 01/13/24 Rosalind Hawley DO [address] [place] [address] Referring Physician Neurology 01/13/24 Tractor Operator Relationship Specialty Start Date End Date Keena Alvarez MD [address] [place] [address] Primary Care Provider Family Medicine 11/15/23 Kimmie Luz NP [address] Nurse Practitioner Neurology 01/13/24 Rosalind Hawley DO [address] [address] Referring Physician Neurology 01/13/24 Tractor Operator Relationship Specialty Start Date End Date Justus Leggett PA [facility] [place] [address] [facility] 03/18/24 Keena Alvarez MD [address] [place] [address] Primary Care Provider Family Medicine 11/15/23 Kimmie Luz NP [address] Nurse Practitioner Neurology 01/13/24 Rosalind Hawley DO [address] [place] [address] Referring Physician Neurology 01/13/24 Tractor Operator Relationship Specialty Start Date End Date Justus Leggett PA [address] [place] [address] PCP - [facility] 03/18/24 Keena Alvarez MD [address] [place] [address] Primary Care Provider Family Medicine 11/15/23 Kimmie Luz NP [address] Nurse Practitioner Neurology 01/13/24 Rosalind Hawley DO [address] [address] Referring Physician Neurology 01/13/24 Tractor Operator Relationship Specialty Start Date End Date Darin Montoya APRN-PIPE STEM ALIGNER [address] [place] [address] PCP - General Primary Care 06/19/22 Tractor Operator Relationship Specialty Start Date End Date Justus Leggett PA [address] [place] [address] PCP - [facility] 03/18/24 Keena Alvraez MD [address] [place] [address] Primary Care Provider Family Medicine 11/15/23 Kimmie Luz NP [address] [facility] [place], [place] Nurse Practitioner Neurology 01/13/24 Rosalind Hawley DO [address] [place] [address] Referring Physician Neurology 01/13/24 Tractor Operator Relationship Specialty Start Date End Date Justus Leggett PA [address] [place] [address] [facility] 03/18/24 Keena Alvarez MD [address] [place] [address] Primary Care Provider Family Medicine 11/15/23 Kimmie Luz NP [address] Nurse Practitioner Neurology 01/13/24 Rosalind Hawley DO [address] [place] [address] Referring Physician Neurology 01/13/24 Tractor Operator Relationship Specialty Start Date End Date Justus Leggett PA [address] [place] [address] PCP - [facility] 03/18/24 Keena Alvarez MD [address] [place] [address] Primary Care Provider Family Medicine 11/15/23 Kimmie Luz NP [address] [place] [address] Nurse Practitioner Neurology 01/13/24 Rosalind Hawley DO [address] [place] [address] Referring Physician Neurology 01/13/24 Tractor Operator Relationship Specialty Start Date End Date Justus Leggett PA [address] [place] [address] [facility] 03/18/24 Keena Alvarez MD [address] [place] [address], [place] [address] Primary Care Provider Family Medicine 11/15/23 Kimmie Luz NP [address] [place] [address] Nurse Practitioner Neurology 01/13/24 Rosalind Hawley DO [address] [place] [address] Referring Physician Neurology 01/13/24 Tractor Operator Relationship Specialty Start Date End Date Justus Leggett PA [address] [place] [address] [facility] 03/18/24 Keena Alvarez MD [address] [place] [address], [place] [address] Primary Care Provider Family Medicine 11/15/23 Kimmie Luz NP [address] [place], [place] Nurse Practitioner Neurology 01/13/24 Rosalind Hawley DO [address] [place] [address] Referring Physician Neurology 01/13/24 Tractor Operator Relationship Specialty Start Date End Date Justus Leggett PA [address] [place] [address] PCP - [facility] 03/18/24 Keena Alvarez MD [address] [place] [address] Primary Care Provider Family Medicine 11/15/23 Kimmie Luz NP [address] [place] [address] Nurse Practitioner Neurology 01/13/24 Rosalind Hawley DO [address] [place] [address] Referring Physician Neurology 01/13/24 Tractor Operator Relationship Specialty Start Date End Date Justus Leggett PA [address] [place] [address] [facility] 03/18/24 Keena Alvarez MD [address] [place] [address] Primary Care Provider Family Medicine 11/15/23 Kimmie Luz NP [address] [place] [address] Nurse Practitioner Neurology 01/13/24 Rosalind Hawley DO [address] [place] [address] Referring Physician Neurology 01/13/24 Tractor Operator Relationship Specialty Start Date End Date Tai Dixon MD [address] [facility] [place] [address] Family Medicine 01/23/24 Tractor Operator Relationship Specialty Start Date End Date Justus Leggett PA [address] [place] [address] PCP - [facility] 03/18/24 Keena Alvarez MD [address] [facility] [address] Primary Care Provider Family Medicine 11/15/23 Kimmie Luz NP [address] [place] [address] Nurse Practitioner Neurology 01/13/24 Rosalind Hawley DO [address] [place] [address] Referring Physician Neurology 01/13/24 Tractor Operator Relationship Specialty Start Date End Date Justus Leggett PA [address] [place] [address] [facility] - [facility] 03/18/24 Keena Alvarez MD [facility] [place] [address] Primary Care Provider Family Medicine 11/15/23 Kimmie Luz NP [address] [place], [place] [address], [place] Nurse Practitioner Neurology 01/13/24 Rosalind Hawley DO [address] [place] [address] Referring Physician Neurology 01/13/24 Tractor Operator Relationship Specialty Start Date End Date Justus Leggett PA [address] [place] [address] PCP - [facility] 03/18/24 Keena Alvarez MD [address] [facility] [address] Primary Care Provider Family Medicine 11/15/23 Kimmie Luz, MANISHA [address] [place] [address] Nurse Practitioner Neurology 01/13/24 Rosalind Hawley DO [address] [place] [address] Referring Physician Neurology 01/13/24 Tractor Operator Relationship Specialty Start Date End Date Justus Leggett PA [address] [place] [address] [facility] - [facility] 03/18/24 Keena Alvarez MD [address] [place] [address] Primary Care Provider Family Medicine 11/15/23 Kimmie Luz NP [address] [place] [address] Nurse Practitioner Neurology 01/13/24 Rosalind Hawley DO [address] [place] [address] Referring Physician Neurology 01/13/24 Tractor Operator Relationship Specialty Start Date End Date Justus Leggett PA [address] [place] [address] [facility] - [facility] 03/18/24 Keena Alvarez MD [address] [place] [address] Primary Care Provider Family Medicine 11/15/23 Kimmie Luz, MANISHA [address] [place] [address] Nurse Practitioner Neurology 01/13/24 Rosalind Hawley DO [address] [place] [address] Referring Physician Neurology 01/13/24 Tractor Operator Relationship Specialty Start Date End Date Justus Leggett PA [address] [facility] [place] [address] [facility] - [facility] 03/18/24 Keena Alvarez MD [address] [place] [address] Primary Care Provider Family Medicine 11/15/23 Kimmie Luz NP [address] [place] [address] Nurse Practitioner Neurology 01/13/24 Rosalind Hawley DO [address] [place] [address] Referring Physician Neurology 01/13/24 Tractor Operator Relationship Specialty Start Date End Date Justus Leggett PA [address] [place] [address] PCP - [facility] 03/18/24 Keena Alvarez MD [address] [place] [address] Primary Care Provider Family Medicine 11/15/23 Kimmie Luz NP [address] Nurse Practitioner Neurology 01/13/24 Rosalind Hawley DO [address] [address] Referring Physician Neurology 01/13/24 Tractor Operator Relationship Specialty Start Date End Date Justus Leggett PA [address] [place] [address] [facility] - [facility] 03/18/24 Keena Alvarez MD [address] [place] [address] Primary Care Provider Family Medicine 11/15/23 Kimmie Luz NP [address] Nurse Practitioner Neurology 01/13/24 Rosalind Hawley DO [address] [address] Referring Physician Neurology 01/13/24 Tractor Operator Relationship Specialty Start Date End Date Justus Leggett PA [address] [place] [address] [facility] - [facility] 03/18/24 Keena Alvarez MD [address] [place] [address] Primary Care Provider Family Medicine 11/15/23 Kimmie Luz NP [address] [place] [address], [place] Nurse Practitioner Neurology 01/13/24 Rosalind Hawley DO [address] [place] [address] Referring Physician Neurology 01/13/24 Tractor Operator Relationship Specialty Start Date End Date Justus Leggett PA [address] [place] [address] PCP - [facility] 03/18/24 Keena Alvarez MD [facility] [place] [address] Primary Care Provider Family Medicine 11/15/23 Kimmie Luz NP [address] Nurse Practitioner Neurology 01/13/24 Rosalind Hawley DO [address] [place] [address] Referring Physician Neurology 01/13/24 Tractor Operator Relationship Specialty Start Date End Date Tai Dixon MD [address] [place] [address] Family Medicine 01/23/24 Tractor Operator Relationship Specialty Start Date End Date Justus Leggett PA [address] [place] [address] PCP - [facility] 03/18/24 Keena Alvarez MD [address] [place] [address] Primary Care Provider Family Medicine 11/15/23 Kimmie Luz NP [address] [place], [place] Nurse Practitioner Neurology 01/13/24 Rosalind Hawley DO [address] [place] [address] Referring Physician Neurology 01/13/24 Tractor Operator Relationship Specialty Start Date End Date NeilRobert huddlestonison Dental Student 07/28/24 Marilu Treadwell BDS [employer] [facility] 07/28/24 Tractor Operator Relationship Specialty Start Date End Date Erum Laboy DDS [address] [place] [address] Fellow Dentistry 06/16/22 Cherise Ramirez DMD, MD [address] [place] [address] Physician Oral & Maxillofacial Surgery 06/16/22 Alfonzo Mccord DDS [address] [place] [address] Fellow Dentistry 10/20/22 Tractor Operator Relationship Specialty Start Date End Date NicElizabeth Dental Student 07/28/24 Marliu Treadwell BDS [employer] [facility] 07/28/24 Tractor Operator Relationship Specialty Start Date End Date Justus Leggett PA [address] [place] [address] [facility] 03/18/24 Keena Alvarez MD [address] [place] [id number] Primary Care Provider Family Medicine 11/15/23 Kimmie Luz NP [address] [place] [id number] Nurse Practitioner Neurology 01/13/24 Rosalind Hawley DO [address] [place] [id number] Referring Physician Neurology 01/13/24 (unrecognized sect ion and content) No Status Records FoundNo Status Records FoundNo Status Records FoundNo Status Records FoundNo Status Records FoundNo Status Records FoundNo Status Records Found INFORMATION SOURCE (unrecogn ized section and content) DATE CREATED AUTHOR 04/23/2022 [facility] DATE CREATED AUTHOR AUTHOR'S ORGANIZ ATION 06/15/2022 [facility] DATE CREATED AUTHOR AUTHOR'S ORGANIZ ATION 07/21/2022 [facility] DATE CREATED AUTHOR AUTHOR'S ORGANIZ ATION 08/18/2023 [facility] DATE CREATED AUTHOR AUTHOR'S ORGANIZ ATION 12/24/[address] [facility] DATE CREATED AUTHOR AUTHOR'S ORGANIZ ATION 06/20/2024 [facility] DATE CREATED AUTHOR AUTHOR'S ORGANIZ ATION 08/01/[address] [facility] EPIC DATE CREATED AUTHOR AUTHOR'S ORGANIZ ATION 10/18/2024 [facility] Reason for Visit (unrecogniz ed section and content) Specialty Diagnoses / Procedures Referred By Clint franks Referred To Contact Oral Surgery Diagnoses Dental caries Vi Samuel, DDS [address] [place] [address] [facility] ORAL [email or web address] [address] Referral ID Status Reason Start Date Expiration Date V isits Requested Visits Authorized [id number] Authorized 04/12/2022 04/12/2023 3 3 Reason Onset Date Comments Urgent TMJ Symptoms 06/05/2022 Reason Comments FOLLOW-UP ORAL SURGERY Reason Onset Date Comments Dental 12/28/2022 Reason Onset Date Comments re: PT 12/24/2023 Contacted to req uest status for PT due to he was [...] reassess on 01/07 w/ Kurtis Laurent PT. Reason Comments Neck Pain Reason Onset Date Comments [place] Prior Auth 02/19/2024 Specialty Diagnoses / Procedures Referred By Clint t Referred To Contact Physical Therapy Diagnoses Rotator cuff impingement syndrome of right shoulder Shoulder joint hypermobility Procedures CA OFFICE/OUTPATIENT NEW HIGH MDM 60 MINUTES Justus Leggett, JOSÉ MANUEL [address] [place] [address] Tawanna Laurent PT Referral ID Status Reason Start Date Expiration Date Visits Requested Visits Authorized [id number] Authorized Specialty Services Required 11/15/2023 05/13/2024 30 30 Reason Comments Pain Reason Comments Follow-up Reason Onset Date Comments [place] Pre auth 03/17/2024 Reason Onset Date Comments re: NS PT today 04/16/2024 Reason Comments Neck Pain Reason Onset Date Comments re: Auth received for PT 05/18/2024 FU 05/19/2024 Reason Comments New Patient Reason Onset Date Comments PT Auth received 06/29/2024 fu 06/30/2024 Reason Comments Orders Reason Comments Procedure #4 MOD Reason Comments Procedure #3 core buildup Reason Comments Procedure Core buildup #14, ca carlo Reason Comments Complex Treatment Planning Reason Onset Date Comments per Referring provider; PT 10/08/2024 Reason Comments No Show Source Comments (unrecognize d section and content) In the event this informatio n is protected by the Federal Confidentiality of Alcohol and Drug Abuse Patient Records regulations: The Federal rules restrict any use of the information to criminally investigate or prosecute any alcohol or drug abuse patient.[facility] the event this information is protected by the Federal Confidentiality of Alcohol and Drug Abuse Patient Records regulations: The Federal rules restrict any use of the information to criminally investigate or prosecute any alcohol or drug abuse patient.[facility] Center[facility] the event this information is protected by the Federal Confidentiality of Alcohol and Drug Abuse Patient Records regulations: The Federal rules restrict any use of the information to criminally investigate or prosecute any alcohol or drug abuse patient.[facility] FOR RECORDS PERTAINING TO PATIENTS WHO ARE [...] BE BASED ON THE PRIMARY CLINICAL RECORDS. [employer] [facility]. provides no warranty or guarantee of the accuracy or completeness of information in this document.
== END 2024-11-05 08:57 | disposition home or self-care (01) ==
LOC: MRI 08:56
PROVIDERS: PCP Nurse Practitioner Family; Visit Provider Nurse Practitioner Family
DX: M25.511 Pain in right shoulder (principal); M75.101 Unspecified rotator cuff tear or rupture of right shoulder, not specified as traumatic
CPT/HCPCS: 73221

== ENCOUNTER 2024-11-26 11:42 | Outpatient (OUT) | payer OTHER, SELFPAY ==
--- OUTSIDE RECORDS SUMMARY | 2022-09-26 10:00 | XMS_ITS | Continuity of Care Document ---
Author Organization [facility] Address [address] [place] [address] Phone Care Team Providers Care Labor Operator Name Role Phone Vinicius Sears DMD Unavailable [...] Patient 2022 Nutrit Couns For Control Of [place] Dis Sep High Risk Advance Directives Directive Yes / No Effective Date File Name No Information Encounters Encounter Description Practice Location Reason(s) For Visit Diagnoses Date Provider Providers Copied on Encounter [facility], [address] [place] [address], [id number], [place] tel:[phone] Dental Clinic DN (chief complaint) Encounter for screening for dental disorders Selvinemely Colvin. [address] [place], [place], [id number], [place]. tel:[phone] Family History Family Member Type Diagnosis Age At Onset No Information Payers Payer name Insurance type Covered constitution party ID Yanick alexander(karina Szymanski [facility] [employer] [id number] D Medicaid ap - [facility] [id number] Social History Type Description Quantity Date Captured [...]
--- OUTSIDE RECORDS SUMMARY | 2024-05-04 06:59 | XMS_ITS ---
Author Organization [facility] [place] Address [address] [place] [address] Care Team Providers Care Oil Tank Car Cleaner Name Role Phone Keena Alvarez Primary Care Provider [phone] Reason For Referral Diagnosis 1 Right shoulder pain (M25.511) Referral Organization [facility] Referring Provider First Name Keena Referring Provider Last Name Kim Referring Provider Speciality Family Med icine Referred Provider Specialty Physical The rapist Referral Priority Routine REASON FOR VISIT pt Encounters Encounter Location Date Provider Diagnosis [facility] [address] [place] [address] 05/04/2024 Keena Alvarez Right shoulder pain M25.511 and Right knee pain M25.561 Assessments Encounter Date Diagnosis (ICD Code) Assessment Notes Treatment Notes Treatment Clinical Notes Section Notes 05/04/2024 Right shoulder pain (ICD-10 - M25.511) 05/04/2024 Right knee pain (ICD-10 - M25.561) Plan Of Treatment Referrals Referral Date Details 05/04/2024 05/04/2024 Progress Notes * Gerardo ROSENBERG ODOB:[birth year] (23 yo M)Acc No.[id number]:05/04/2024 Patient: Nury Gerardo PISANO :2000 A ge:23 Y S ex:Male Address:[address] [place] [address], Subjective: * Chief Complaints: * P t * Medical History: * Surgical History: * Hospitalization/Major Diagno stic Procedure: * Medications: Objective: * Vitals: * Physical Examination: Assessment: * Assessment: 1. R ight shoulder pain - M25.511 (Primary) 2 . R ight knee pain - M25.561? Plan: * Treatment: * Procedure Codes: * true * Date: Generated for Rigo cantu/Rekha/Tonyaitting on: 0 11/26/2024 11:44 AM EDT Consultation Request Notes Referral Date Referring Provider Referred Provider Not es 05/04/2024 Keena Alvarez ,
--- OUTSIDE RECORDS SUMMARY | 2024-07-30 06:52 | XMS_ITS ---
Author Organization The [facility] [place] Address [address] [place] [address] Care Team Providers Care Food And Beverage Attendant Name Role Phone Keena Alvarez Primary Care Provider REASON FOR VISIT wants an MRI Encounters Encounter Location Date Provider Diagnosis [facility] [address] [place] [address] 07/30/2024 Keena Alvarez Right shoulder pain M25.511 Assessments Encounter Date Diagnosis (ICD Code) Assessment Notes Treatment Notes Treatment Clinical Notes Section Notes 07/30/2024 Right shoulder pain (ICD-10 - M25.511) Plan Of Treatment Pending Test Test Name Order Date MRI SHOULDER RT WO CON 07/30/2024 Progress Notes * Gerardo ROSENBERG ODOB:[birth year] (23 yo M)Acc No.[id number]:07/30/2024 Patient: Nury PISANO Gerardo Estrada :2000 A ge:23 Y S ex:Male Address:[address] [place] [address], Subjective: * Chief Complaints: * w ants an MRI * Medical History: * Surgical History: * Hospitalization/Major Diagno stic Procedure: * Medications: Objective: * Vitals: * Physical Examination: Assessment: * Assessment: 1. R ight shoulder pain - M25.511 (Primary) Plan: * Treatment: * Procedure Codes: * true * Date: Generated for Printi ng/Faxing/eTransmitting on: 0 11/26/2024 11:45 AM EDT
--- OUTSIDE RECORDS SUMMARY | 2024-10-06 10:08 | XMS_ITS ---
Author Organization The [facility] in [place] Address [address] [place] [address] Care Team Providers Care Receptionist Secretary Name Role Phone Keena Alvarez Primary Care Provider [phone] Reason For Referral Diagnosis 1 Right shoulder pain (M25.511) Referral Organization [facility] Referring Provider First Name Keena Referring Provider Last Name Kim Referring Provider [facility] kofi Referred Provider Dilip Mota Referred Provider Specialty Orthopedic S urgery Referral Priority Routine Diagnosis 1 Right shoulder pain (M25.511) Referral Organization [facility] Referring Provider First Name Keena Referring Provider Last Name Kim Referring Provider [facility] kofi Referred Provider [facility] Gee FLORIAN Referred Provider Specialty Physical The rapist Referral Priority Routine REASON FOR VISIT MRI Denial Encounters Encounter Location Date Provider Diagnosis [facility] [address] [place] [phone] 10/06/2024 Keena Alvarez Right shoulder pain M25.511 Assessments Encounter Date Diagnosis (ICD Code) Assessment Notes Treatment Notes Treatment Clinical Notes Section Notes 10/06/2024 Right shoulder pain (ICD-10 - M25.511) Plan Of Treatment Referrals Referral Date Details 10/08/2024 10/08/2024Dilip 10/08/2024 10/08/2024Gee MS PT Progress Notes * Gerardo ROSENBERG ODOB:[birth year] (24 yo M)Acc No.[id number]:10/06/2024 Patient: Nury Gerardo PISANO :2000 A ge:24 Y S ex:Male Address:[facility] [address] [place] [place] [address] Subjective: * Chief Complaints: * M RI Denial * Medical History: * Surgical History: * Hospitalization/Major Diagno stic Procedure: * Medications: Objective: * Vitals: * Physical Examination: Assessment: * Assessment: 1. R ight shoulder pain - M25.511 (Primary) Plan: * Treatment: * Procedure Codes: * true * Date: Generated for Rigo cantu/Rekha/eTransmitting on: 0 11/26/2024 11:45 AM EDT Consultation Request Notes Referral Date Referring Provider Referred Provider Not bri 10/08/2024 Keena Alvarez Thomas 10/08/2024 Keena Alvarez PT, [place]
--- OUTSIDE RECORDS SUMMARY | 2024-11-10 11:28 | XMS_ITS ---
Author Organization [facility] in [place] Address [address] [place] [address] Care Team Providers Care Paid Intern Name Role Phone Keena Alvarez Primary Care Provider [phone] REASON FOR VISIT MRI ressults Encounters Encounter Location Date Provider Diagnosis [facility] [address] [place] [address] 11/10/2024 Keena Alvarez Plan Of Treatment No Information Progress Notes * Gerardo ROSENBERG ODOB:[birth year] (24 yo M)Acc No.[id number]:11/10/2024 Patient: Nury OLGUINGerardo KATHLEEN :2000 A ge:24 Y S ex:Male Address:[facility] [place], [place], * true * Date: Generated for Rigo cantu/Rekha/eTransmitting on: 0 11/26/2024 11:44 AM EDT
--- NOTE | 2024-11-26 | XR_ITS ---
The [address] [address] Patient Name: BETTY SALGUERO MRN: [id number] date: 2000 Sex: M Assigned Patient Location: [facility] Current Patient Location: [facility] Accession/Order Number: [id number] Exam Date: 11/26/2024 11:50 Report Date: 11/26/2024 12:31 At the request of: RAE MARTINEZ DO Procedure: XR shoulder RT min 2V RIGHT SHOULDER - 4 views CLINICAL HISTORY: M25.511 right shoulder pain with popping and clicking for the past 2 years. No injury. COMPARISON: 11/02/2023 and MRI 11/05/2024 AP, Y, axillary and Grashey views were obtained. There is no evidence of fracture or dislocation. There are no significant soft tissue abnormalities. XR/XR shoulder RT min 2V IMPRESSION: NO ACUTE BONY FINDINGS. Impression dictated by: Desi Lopez M.D. 11/26/2024 12:31 PM Dictation Location: [place] [address] Electronically authenticated by: [id number] Y Date: 11/26/2024 12:31
--- OUTSIDE RECORDS SUMMARY | 2024-11-26 11:44 | XMS_ITS | Patient Health Record ---
Author Organization The [facility] in [place] Address [address] [place] [address] Care Team Providers Care Laboratory Specialist Name Role Phone Keena Guzman Primary Care Provider [phone] RobshikhaNorman [phone] Allergies No Known Allergies Results Component Value Reference Range Notes ACETAMINOPHEN Reviewed date:12/17/2023 10:15:54 AM Interpretation: Performing Lab: Notes/Report: [facility] , Acetaminophen <2.0 10.0-30.0 ug/mL Performing Lab: see note ML - [facility] LB CBC AUTO DIFF Reviewed date:12/17/2023 10:15:54 AM Interpretation: Performing Lab: Notes/Report: [facility] , White Blood Count 5.6 4.0-11.0 10 3/uL Red Blood Count 5.32 4.70-6.10 10 6/uL Hemoglobin 15.6 14.0-18.0 g/dL Hematocrit 46.2 42.0-54.0 % Mean Corpuscular Volume 86.8 80.0-94.0 fL Mean Corpuscular Hemoglobin 29.3 25.9-34.0 pg Mean Corpuscular HGB Conc 33.8 29.9-35.2 g/dL Red Cell Distribution Width 12.4 11.0-15.0 % Platelet Count 212 150-450 10 3/uL Mean Platelet Volume 10.0 9.5-13.5 fL Neutrophils Percent Auto 65.4 43.0-75.0 % Lymphocytes Percent Auto 25.3 20.5-60.0 % Monocytes Percent Auto 6.4 1.7-12.0 % Eosinophils Percent Auto 2.1 0.9-7.0 % Basophils Percent Auto 0.4 0.2-2.0 % Immature Granulocytes Pct Auto 0.4 0.0-0.5 % Neutrophils Absolute Auto 3.7 1.4-6.5 10 3/uL Lymphocytes Absolute Auto 1.4 1.2-3.8 10 3/uL Monocytes Absolute Auto 0.4 0.3-0.8 10 3/uL Eosinophils Absolute Auto 0.1 0.0-0.7 10 3/uL Basophils Absolute Auto 0.0 0.0-0.1 10 3/uL Immature Granulocytes Abs Auto 0.02 0.00-0.03 10 3/uL Performing Lab: see note ML - [facility] LB DRUG SCREEN RAPID (URINE) Reviewed date:12/17/2023 10:15:54 AM Interpretation: Performing Lab: Notes/Report: [facility] , Cannabinoid Screen Urine POSITIVE NEGATIVE Phencyclidine Screen Urine NEGATIVE NEGATIVE Cocaine Screen Urine NEGATIVE NEGATIVE Methamphetamines Screen Urine NEGATIVE NEGATIVE Opiate Screen Urine NEGATIVE NEGATIVE Amphetamine Screen Urine NEGATIVE NEGATIVE Benzodiazepines Screen Urine NEGATIVE NEGATIVE Tricyclic Antidepressant Urine NEGATIVE NEGATIVE Methadone Screen Urine NEGATIVE NEGATIVE Barbiturates Screen Urine NEGATIVE NEGATIVE Oxycodone Screen Urine NEGATIVE NEGATIVE Buprenorphine Screen Urine NEGATIVE NEGATIVE DEQUAN (Cocaine): 150 ng/mL PCP (Phencyclidine): 25 ng/mL OPI (Opiates): 100 ng/mL BAR (Barbiturates): 200 ng/mL FOLLOWS: DRUG CLASS TEST SYSTEM CUT-OFF CONCENTRATIONS ARE MTD (Methadone): 200 ng/mL BUP (Buprenorphine): 10 ng/mL BZO (Benzodiazepines): 150 ng/mL THC (Cannabinoids): 50 ng/mL OXY (Oxycodone): 100 ng/mL TCA (Trycyclic Antidepressants): 300 ng/mL AMP (Amphetamine): 500 ng/mL mAMP (Methamphetamine): 500 ng/mL Performing Lab: see note ML - [facility] LB PROF 14(COMP METB) Reviewed date:12/17/2023 10:15:54 AM Interpretation: Performing Lab: Notes/Report: [facility] , Sodium 138 136-145 mmol/L Potassium 3.8 3.5-5.1 mmol/L Chloride 102 98-107 mmol/L Carbon Dioxide 33.6 21.0-32.0 mmol/L Anion Gap 6.2 Glucose 70 74-106 mg/dL Blood Urea Nitrogen 10.0 7.0-18.0 mg/dL Creatinine 0.89 0.70-1.30 mg/dL Estimated GFR ( Cindy >60 >=60 Estimated GFR (Non- Kristyn >60 >=60 BUN Creatinine Ratio 11.2 Calcium 9.5 8.5-10.1 mg/dL Bilirubin Total 0.4 0.2-1.0 mg/dL Aspartate Amino Transferase 21 15-37 U/L Alanine Aminotransferase 33 16-63 U/L Alkaline Phosphatase 57 46-116 U/L Total Protein 7.7 6.4-8.2 g/dL Albumin Level 4.1 3.4-5.0 g/dL Globulin 3.6 Albumin Globulin Ratio 1.1 Performing Lab: see note ML - [facility] LB Salicylate Reviewed date:12/17/2023 10:15:54 AM Interpretation: Performing Lab: Notes/Report: [facility] , Salicylate <2.8 <=19.9 mg/dL Performing Lab: see note ML - [facility] LB Ethanol Reviewed date:12/17/2023 10:15:54 AM Interpretation: Performing Lab: Notes/Report: [facility] , Ethanol <3 NOTE: 80 mg/dl is the legal limit for a blood alcohol level Performing Lab: see note ML - [facility] LB ECG 12 lead Reviewed date:12/17/2023 10:15:54 AM Interpretation: Performing Lab: Notes/Report: Source Facility: [facility]-[address] [place] [address] [place] [address] Electrocardiograph Report Signed Patient: BETTY SALGUERO MR#: [id number] : 2000 Acct:[id number] Age/Sex: 23 / M ADM Date: 12/16/23 Loc: ER Attending Dr: Ordering Physician: Mihir Godoy Date of Service: 12/16/23 Procedure(s): ECG 12 lead Accession Number(s): [id number] cc: [facility] Test Date: 2023-12-16 Pat Name: BETTY SALGUERO Department: Room: - 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 Signed By: 12/16/232299 DD/ 00 TD/TT: Ancillary Services Manager Therapy: CRP Reviewed date:01/08/2024 06:37:32 PM Interpretation: Performing Lab: Notes/Report: [facility] , C Reactive Protein <0.50 <=0.50 mg/dL Performing Lab: see note ML - [facility] LB URIC ACID SERUM Reviewed date:01/08/2024 06:37:32 PM Interpretation: Performing Lab: Notes/Report: [facility] , Uric Acid 4.7 3.5-7.2 mg/dL Performing Lab: see note ML - [facility] LB CPK Reviewed date:01/08/2024 06:37:32 PM Interpretation: Performing Lab: Notes/Report: [facility] , Creatine Kinase 95 39-308 U/L Performing Lab: see note ML - [facility] LB CRP Reviewed date:01/08/2024 06:37:32 PM Interpretation: Performing Lab: Notes/Report: [facility] , C Reactive Protein <0.50 <=0.50 mg/dL Performing Lab: see note ML - [facility] LB Erythrocyte Sedimentation Ra te Reviewed date:01/08/2024 06:37:32 PM Interpretation: Performing Lab: Notes/Report: [facility] , Erythrocyte Sedimentation Rate 8 <=15 mm/hr Performing Lab: see note ML - [facility] LB XR DEXA axial skeleton Reviewed date:01/09/2024 07:00:21 PM Interpretation: Performing Lab: Notes/Report: Source Facility: [place] [address] XRay Report Signed Patient: BETTY SALGUERO MR#: [id number] : 2000 Acct:[id number] Age/Sex: 23 / M ADM Date: 01/08/24 Loc: RAD Attending Dr: Cynthia Dixon M.D. Ordering Physician: Cynthia Dixon M.D. Date of Service: 01/08/24 Procedure(s): XR DEXA axial skeleton Accession Number(s): [id number] cc: KEENA GUZMAN ; Cynthia Dixon M.D. [place] [address] Patient Name: BETTY SALGUERO MRN: [id number] date: 2000 Sex: M Assigned Patient Location: RAD Current Patient Location: RAD Accession/Order Number: [id number] Exam Date: 01/08/2024 13:35 Report Date: 01/09/2024 09:44 At the request of: CYNTHIA DIXON Procedure: XR DEXA axial skeleton EXAMINATION: XR DEXA axial skeleton HISTORY: Arthralgia, M25.50 COMPARISON: No relevant comparison available. TECHNIQUE: Dual-energy X-ray absorptiometry (DXA) was performed. FINDINGS: SPINE ANALYSIS: Average bone mineral density is 1.144 g/cm2. T-score (standard deviation relative to young adult mean): -0.6 . HIP ANALYSIS: Lowest bone mineral density is within the right femoral neck, 0.922 g/cm2. T-score (standard deviation relative to young adult mean): -1.1 . XR/XR DEXA axial skeleton IMPRESSION: World Health Organization Classification: Osteopenia - Moderate Fracture Risk FRAX: Cannot be calculated. Pharmacologic treatment recommendations * No uniform recommendation applies to all patients. Management plans must be individualized. * Consider initiating pharmacologic treatment in postmenopausal women and men >= 50 years of age who have the following: Primary fracture prevention: * T-score <= - 2.5 at the femoral neck, total hip, lumbar spine, 33% radius (some uncertainty with existing data) by DXA. * Low bone mass (osteopenia: T-score between - 1.0 and - 2.5) at the femoral neck or total hip by DXA with a 10-year hip fracture risk >= 3% or a 10-year major osteoporosis-related fracture risk >= 20% (i.e., clinical vertebral, hip, forearm, or proximal humerus) based on the [place]-adapted FRAXregistered model. Secondary fracture prevention: * Fracture of the hip or vertebra regardless of BMD [4, 5]. * Fracture of proximal humerus, pelvis, or distal forearm in persons with low bone mass (osteopenia: T-score between - 1.0 and - 2.5). The decision to treat should be individualized in persons with a fracture of the proximal humerus, pelvis, or distal forearm who do not have osteopenia or low BMD [12, 13]. Hoang MS, Salina SL, Aixa KL, Kinga EM, Donovan KG, AJ, Gustavo ES. The clinician's guide to prevention and treatment of osteoporosis. Osteoporos Int. 2021;33(10):6024-2532. doi: 10.1007/e87269-731-94958-n. Epub 2021Jul 13. Erratum in: Osteoporos Int. 2021Oct 12;: PMID: 07806110; PMCID: RKC6008971. Electronically authenticated by: JAVI BALLARD Date: 01/09/2024 09:44 Dictated By: Javi Ballard M.D. Signed By: 01/09/24946 DD/ 3 TD/TT: Ancillary Services Manager Therapy: [place] [address] XRay Report Signed Patient: VIVEK SALGUERO MR#: [id number] : 2000 Acct:[id number] Age/Sex: 23 / M ADM Date: 01/08/24 Loc: RAD Attending Dr: Lisette Dixon M.D. Ordering Physician: Cynthia Dixon M.D. Date of Service: 01/08/24 Procedure(s): XR DEX A axial skeleton Accession Number(s): [id number] cc: KEENA GUZMAN ; Cynthia Dixon M.D. The [address] [address] Patient Name: BETTY SALGUERO MRN: [id number] date: 2000 Sex: M Assigned Patient Location: RAD Current Patient Loca tion: RAD Accession/Order Numb er: [id number] Exam Date: 13:35 Report Date: 01/09/2024 09:44 At the request of: CYNTHIA DIXON Procedure: XR DEXA a xial skeleton EXAMINATION: XR DEXA axial skeleton HISTORY: Arthralgia, M25.50 COMPARISON: No relev ant comparison available. TECHNIQUE: Dual-ener gy X-ray absorptiometry (DXA) was performed. FINDINGS: SPINE ANALYSIS: Average bone mineral density is 1.144 g/cm2. T-score (standard deviation relative to young adult mean): -0.6 . HIP ANALYSIS: Lowest bone mineral density is within the right femoral neck, 0.922 g/cm2. T-score (standard deviation relative to young adult mean): -1.1 . X R/XR DEXA axial skeleton IMPRESSION: World Health Organiz ation Classification: Osteopenia - Moderate Fracture Risk FRAX: Cannot be calculated. Pharmacologic treatm ent recommendations * No uniform recommendation applies to all patients. Management plans must be individualized. * Consider initiatin g pharmacologic treatment in postmenopausal women and men >= 50 years of age w ho have the following: Primary fracture prevention: * T-score <= - 2.5 a t the femoral neck, total hip, lumbar spine, 33% radius (some uncertainty wi th existing data) by DXA. * Low bone mass (osteopenia: T-score between - 1.0 and - 2.5) at the femoral neck or total hip by DXA with a 10-year hip fracture risk >= 3% or a 10-year major osteoporosis-related fracture risk >= 20% (i.e., clinical vertebral, hip, forearm, or proximal humerus) based on the [place]-adapted FRAXregistered model. Secondary fracture prevention: * Fracture of the hi p or vertebra regardless of BMD [4, 5]. * Fracture of proxim al humerus, pelvis, or distal forearm in persons with low bone mass (osteopeni a: T-score between - 1.0 and - 2.5). The decision to treat should be individual ized in persons with a fracture of the proximal humerus, pelvis, or distal fo rearm who do not have osteopenia or low BMD [12, 13]. Hoang MS, Salina SL, Aixa KL, Kinga EM, Donovan KG, AJ, Gustavo ES. The clinician's guid e to prevention and treatment of osteoporosis. Osteoporos Int. 2021;33(10):7253-2895. doi: 10.1007/d39679-913-34177- y. Epub 2021Jul 13. Erratum in: Osteoporos Int. 2021Oct 12;: PMID: 16025802; PMCID: [id number]. Electronically authenticated by: JAVI BALLARD Date: 01/09/2024 09:44 Dictated By: Javi Ballard M.D. Signed By: 01/09/24 0947 DD/ 0944 TD/TT: Ancillary Services Manager Therapy: MR shoulder RT wo con Reviewed date:11/11/2024 09:57:57 AM Interpretation: Performing Lab: Notes/Report: Source Facility: [place] [address] Magnetic Resonance Report Signed Patient: BETTY SALGUERO MR#: [id number] : 2000 Acct:[id number] Age/Sex: 24 / M ADM Date: 11/05/24 Loc: MRI Attending Dr: KEENA GUZMAN Ordering Physician: KEENA GUZMAN Date of Service: 11/05/24 Procedure(s): MR shoulder RT wo con Accession Number(s): [id number] cc: KEENA GUZMAN [place] [address] Patient Name: BETTY SALGUERO MRN: [facility]:[id number] date: 2000 Sex: M Assigned Patient Location: MRI Current Patient Location: Accession/Order Number: [id number] Exam Date: 11/05/2024 10:55 Report Date: 11/05/2024 14:23 At the request of: KEENA GUZMAN Procedure: MR shoulder RT wo con MR RIGHT SHOULDER CLINICAL INFORMATION: Shoulder pain.. COMPARISON: 10/30/2003. PROCEDURE: Axial, oblique coronal, and oblique sagittal long TR images of the shoulder were obtained. FINDINGS: ROTATOR CUFF AND ASSOCIATED STRUCTURES Biceps Tendon: Mild increased signal intensity is noted along the proximal long head of the biceps tendon with a small amount of fluid along the tendon sheath suggesting tenosynovitis. Rotator cuff: Mild increased signal intensity is noted in the supraspinatus tendon near the insertion site suggesting tendinopathy. The rotator cuff tendons are intact. The subscapularis constituent of the rotator cuff is intact. Musculature: There is no muscular tear, contusion, or atrophy. Bursa: There is a small amount of fluid in the subacromial bursa. OSSEOUS STRUCTURES Acromioclavicular joint: There are mild degenerative changes of the acromioclavicular joint. A type 2 acromion configuration is noted. There is no anterior or lateral acromial downsloping. Bones: No Hill-Sachs, reverse Hill-Sachs, or bony Bankart lesions are seen. There are no fractures or regions of abnormal bone marrow signal intensity. GLENOHUMERAL JOINT Joint: There is no glenohumeral joint effusion. Cartilage: No focal hyaline cartilage defects are noted. Labrum: The labrum is not optimally evaluated. Other support structures: No capsular or ligamentous abnormality is seen. MR/MR shoulder RT wo con IMPRESSION: 1. Mild increased signal intensity is noted in the supraspinatus tendon near the insertion site suggesting tendinopathy. 2. Mild increased signal intensity is noted along the proximal long head of the biceps tendon with a small amount of fluid along the tendon sheath suggesting tenosynovitis. Impression dictated by: Josef Emanuel M.D. 11/05/2024 2:23 PM Dictation Location: [place] [address] Electronically authenticated by: [id number] Y Date: 11/05/2024 14:23 Dictated By: Josef Emanuel M.D. Signed By: 11/11/24 0930 DD/ 1423 TD/TT: Ancillary Services Manager Therapy: [place] [address] Magnetic Resonance Report Signed Patient: VIVEK SALGUERO MR#: [id number] : 2000 Acct:[id number] Age/Sex: 24 / M ADM Date: 11/05/24 Loc: MRI Attending Dr: KEENA GUZMAN Ordering Physician: KEENA GUZMAN Date of Service: 11/05/24 Procedure(s): MR chencho goldman RT wo con Accession Number(s): [id number] cc: KEENA GUZMAN [place] [id number] Patient Name: BETTY SALGUERO MRN: [id number] date: 2000 Sex: M Assigned Patient Location: MRI Current Patient Location: Accession/Order Numb er: [id number] Exam Date: 11/05/2024 10:55 Report Date: 11/05/2024 14:23 At the request of: KEENA GUZMAN Procedure: MR should er RT wo con MR RIGHT SHOULDER CLINICAL INFORMATION : Shoulder pain.. COMPARISON: 10/30/2003. PROCEDURE: Axial, ob lique coronal, and oblique sagittal long TR images of the shoulder were obtained. FINDINGS: ROTATOR CUFF AND ASSOCIATED STRUCTURES Biceps Tendon: Mild increased signal intensity is noted along the proximal long head of the bic eps tendon with a small amount of fluid along the tendon sheath suggesting tenosynovitis. Rotator cuff: Mild increased signal intensity is noted in the supraspinatus tendon near the inse rtion site suggesting tendinopathy. The rotator cuff tendons are intact. The subscapularis constituent of the rotator cuff is intact. Musculature: There i s no muscular tear, contusion, or atrophy. Bursa: There is a sm all amount of fluid in the subacromial bursa. OSSEOUS STRUCTURES Acromioclavicular mira int: There are mild degenerative changes of the acromioclavicular mira int. A type 2 acromion configuration is noted. There is no anterior or lateral acromial downsloping. Bones: No Hill-Sachs , reverse Hill-Sachs, or bony Bankart lesions are seen. There are no fractur es or regions of abnormal bone marrow signal intensity. GLENOHUMERAL JOINT Joint: There is no glenohumeral joint effusion. Cartilage: No focal hyaline cartilage defects are noted. Labrum: The labrum i s not optimally evaluated. Other support struct ures: No capsular or ligamentous abnormality is seen. M R/MR shoulder RT wo con IMPRESSION: 1. Mild increased si gnal intensity is noted in the supraspinatus tendon near the insertion site suggesting tendinopathy. 2. Mild increased si gnal intensity is noted along the proximal long head of the biceps tendon wi th a small amount of fluid along the tendon sheath suggesting tenosynovitis. Impression dictated by: Josef Emanuel M.D. 11/05/2024 2:23 PM Dictation Location: [place] [address] Electronically authenticated by: [id number] Y Date: 11/05/2024 14:23 Dictated By: Josef Emanuel M.D. Signed By: 11/11/24 0930 DD/ 1423 TD/TT: Ancillary Services Manager Therapy: HLA B 27 Disease Association Reviewed date:08/13/2024 12:23:56 PM Interpretation: Performing Lab: Notes/Report: Chris , HLA B 27 Disease Association Negative . This test was developed and its performance characteristics HLA-B*27 Negative Performed at: [address] [place] [address] This test was performed using Polymerase Chain Reaction The FDA has determined that such clearance or approval is not necessary. technique. Sequence Based Typing (SBT) may be used as a HLA Lab CLIA ID Number [id number] (PCR) and Sequence Specific Oligonucleotide Probes (SSOP) at or email at [email or web address]. database version 3.58 Ship Design Teacher: Kristin Silveira PhD, Phone: [phone] by the Food and Drug Administration. [address] [place] [address] [phone] determined by [facility]. It has not been cleared or approved If you have questions, please call HLA customer service B27 allele interpretation for all loci based on IMGT/HLA supplemental method when necessary. Performing Lab: see note [facility] Antistreptolysin O Ab Reviewed date:01/12/2024 09:08:49 PM Interpretation: Performing Lab: Notes/Report: [facility] , Antistreptolysin O Ab 126.1 0.0-200.0 IU/mL [address] [place] [id number] Ship Design Teacher: Jm Canas PhD, Phone: [phone] Performed at: [facility] Performing Lab: see note [facility] LB RHEUMATOID FACTOR Reviewed date:01/12/2024 09:08:49 PM Interpretation: Performing Lab: Notes/Report: [facility] , Rheumatoid Factor (RF) <10.0 <14.0 IU/mL Performing Lab: see note [facility] LB CBC AUTO DIFF Reviewed date:01/08/2024 06:37:32 PM Interpretation: Performing Lab: Notes/Report: [facility] , White Blood Count 5.3 4.0-11.0 10 3/uL Red Blood Count 5.13 4.70-6.10 10 6/uL Hemoglobin 15.1 14.0-18.0 g/dL Hematocrit 44.3 42.0-54.0 % Mean Corpuscular Volume 86.4 80.0-94.0 fL Mean Corpuscular Hemoglobin 29.4 25.9-34.0 pg Mean Corpuscular HGB Conc 34.1 29.9-35.2 g/dL Red Cell Distribution Width 12.6 11.0-15.0 % Platelet Count 204 150-450 10 3/uL Mean Platelet Volume 9.8 9.5-13.5 fL Neutrophils Percent Auto 72.7 43.0-75.0 % Lymphocytes Percent Auto 18.2 20.5-60.0 % Monocytes Percent Auto 6.8 1.7-12.0 % Eosinophils Percent Auto 1.7 0.9-7.0 % Basophils Percent Auto 0.4 0.2-2.0 % Immature Granulocytes Pct Auto 0.2 0.0-0.5 % Neutrophils Absolute Auto 3.9 1.4-6.5 10 3/uL Lymphocytes Absolute Auto 1.0 1.2-3.8 10 3/uL Monocytes Absolute Auto 0.4 0.3-0.8 10 3/uL Eosinophils Absolute Auto 0.1 0.0-0.7 10 3/uL Basophils Absolute Auto 0.0 0.0-0.1 10 3/uL Immature Granulocytes Abs Auto 0.01 0.00-0.03 10 3/uL Performing Lab: see note ML - [facility] LB YESENIA by IFA Reviewed date:01/12/2024 09:08:49 PM Interpretation: Performing Lab: Notes/Report: [facility] , Antinuclear Antibodies, IFA Negative . For more information about Hep-2 cell patterns use Negative <1:80 ICAP nomenclature: AC-0 Patterns (ICAP). [address] [place], [place] [id number] Performed at: - [facility] [place] [employer] Consensus on Antinuclear Antibody (YESENIA) Positive >1:80 ANApatterns.org, the official website for the Ship Design Teacher: Jm Canas PhD, Phone: [phone] Borderline 1:80 Performing Lab: see note LC - [facility] LB Reason For Referral Reason bilateral shoulder p ain, requesting 2nd opinion Diagnosis 1 Shoulder pain (M25.5 19) Referral Organization [facility] Referring Provider First Name Keena Referring Provider Last Name Kim [facility] Referred Provider Troy Luther Referred Provider Specialty Orthopedic S urgery Referral Priority Routine Diagnosis 1 Right shoulder pain (M25.511) Referral Organization [facility] Referring Provider First Name Keena Referring Provider Last Name Kim [facility]erring [facility] Referred Provider Specialty Physical The rapist Referral Priority Routine Diagnosis 1 Right shoulder pain (M25.511) Referral Organization [facility] Referring Provider First Name Keena Referring Provider Last Name Kim Referring Provider [facility] Referred Provider Dilip Mota Referred Provider Specialty Orthopedic S urgery Referral Priority Routine Diagnosis 1 Right shoulder pain (M25.511) Referral Organization [facility] Referring Provider First Name Keena Referring Provider Last Name [facility] Referring Provider [facility] Referred Provider Gee WILSON PT Referred Provider Specialty Physical The rapist Referral Priority Routine Medications Medication SIG (Take, Route, Frequency, Duration) Notes Start Date End Date Status Arthritis Pain Reliever 1 % APPLY 1 GRAM up to THREE TIMES DAILY TO THE AFFECTED AREA(S) External for 33 Days Active Calcium 500 MG 1 tablet with meals Orally Twice a day for 30 days 05/04/2024 Active Vitamin D3 10 MCG (400 UNIT) 2 tablets Orally Once a day for 30 days 05/04/2024 Active Social History Tobacco Use: Social History Observation Description Date Details (start date - stop date) Never Smoker NA - NA Tobacco Control (Standard) Question Answer Notes Tobacco use: Nonsmoker AUDIT-C (Standard) Question Answer Notes Did you have a drink containing alcohol in the p ast year? No Points 0 Interpretation Negative Section Notes: Marijuana Marijuana Marijuana Marijuana Marijuana Problems Problem Type SNOMED Code ICD Code Onset Dates Problem Status W/U Status Risk Notes Problem Homicidal thoughts (finding) (622452368) Homicidal ideations (R45.850) Active confirmed Problem Feeling suicidal (234283504) Suicidal ideations (R45.851) Active confirmed Problem Anxiety (14549346) Anxiety (F41.9) Active confirmed Problem Neck pain (57709838) Neck pain (M54.2) Active confirmed Problem Arthritis (2550529) Arthritis (M19.90) Active confirmed Problem Depression (638251484) Depression (F32.9) Active confirmed Problem Osteopenia (877507254) Osteopenia (M85.80) Active confirmed Problem Arthralgia (46469903) Arthralgia (M25.50) Active confirmed Problem Anorexic (43077219) Anorexic (R63.0) Active confirmed Vital Signs Blood pressure diastolic 82 mm Hg 08/03/2024 Height 58 in 08/03/2024 Blood pressure systolic 122 mm Hg 08/03/2024 Weight 146.4 lbs 08/03/2024 BMI 30.59 kg/m2 08/03/2024 Encounters Encounter Location Date Provider Diagnosis [address] [address] 12/13/2023 Norman Hoy Arthralgia M25.[address] [address] 01/14/2024 Keena Guzman Osteopenia determine d by x-ray M85.[address] [address] 05/04/2024 Keena Kim Shoulder pain M25.51 9 and Osteopenia M85.[address] [address] 08/03/2024 Keena Kim Right shoulder pain M25.511 and Neck pain M54.[address] [address] 01/08/2024 Keena Kim [address] [address] 05/04/2024 Keena Kim Right shoulder pain M25.511 and Right knee pain M25.[address] [address] 07/30/2024 Keena Kim Right shoulder pain M25.[address] [address] 10/06/2024 Keena Kim Right shoulder pain M25.[address] [address] 11/10/2024 Keenajean pierre Gumzan Assessments Encounter Date Diagnosis (ICD Code) Assessment Notes Treatment Notes Treatment Clinical Notes Section Notes 12/13/2023 Arthralgia (ICD-10 - M25.50) 01/14/2024 Osteopenia determined by x-ray (ICD-10 - M85.80) discussed bone density handouts given encouraged eating foods calcium discussed importance of good nutrition discussed calcium and Vit D supplements has referral to Dr Heck 05/04/2024 Shoulder pain (ICD-10 - M25.519) extend PT? [facility] dowling 05/04/2024 Osteopenia (ICD-10 - M85.80) has apt with Dr Heck CC start Ca and Vit D 08/03/2024 Right shoulder pain (ICD-10 - M25.511) MRI was ordered last week 08/03/2024 Neck pain (ICD-10 - M54.2) 05/04/2024 Right shoulder pain (ICD-10 - M25.511) 05/04/2024 Right knee pain (ICD-10 - M25.561) 07/30/2024 Right shoulder pain (ICD-10 - M25.511) 10/06/2024 Right shoulder pain (ICD-10 - M25.511) Plan Of Treatment Pending Test Test Name Order Date RHEUMATOID PANEL 12/13/2023 CBC AUTO DIFF 12/13/2023 SED RATE WESTERGREN 12/13/2023 MRI SHOULDER RT WO CON 07/30/2024 XR DEXA BONE DENSITY 12/13/2023 XR SHOULDER RT 2V or > 10/18/2023 XR cervical spine 2-3V 08/03/2024 Insurance Providers Payer Name Payer Address Payer Phone Subscriber Number Group Number Insured Name Patient Relationship to Insured Coverage Start Date Coverage End Date [employer] [place] [employer] [address] [place] [address] [id number] Betty Salguero Self - patient is the insured Medical (General) History Medical History History ICD Code Anorexic R63.0 Anxiety F41.9 Arthritis M19.90 Depression F32.A TMJ (dislocation of temporomandibular mira int) S03.00XA Hospitalization History Reason Date(Month/Year) Psych- multiple times
--- OUTSIDE RECORDS SUMMARY | 2024-11-26 11:45 | XMS_ITS | Clinical Summary ---
Author Organization [facility] Address [address] [facility] [place] [address] Care Team Providers Care Senior National Account Manager Name Role Phone Erum Laboy DDS Unavailable [phone] Cherise Ramirez DMD, MD Unavailable [phone] Alfonzo Mccord DDS Unavailable [phone] Source Comments The following information is NOT included in Care Everywhere downloads:Psychiatric notes, ECG results, Cardiac Rehab notes, Pulmonary Function notes, data from [facility] (includes but not limited toPregnancy data,audiograms, eye exams, pre-surgical evaluation notes, well-child exam data).[facility] Allergies No known active allergies Medications gabapentin (NEURONTIN) 300 MG capsule Take 300 mg by mouth 3 times daily. Active baclofen (LIORESAL) 10 MG tabletIndications:Roshni lgia of mastication muscle,Myalgia of muscle of neck Take 1 Tablet by mouth 3 times daily. 90 Tablet 06/15/19 23 Active diclofenac (VOLTAREN) 1 % GEL topical gelIndications:Arthra lgia of right temporomandibular joint Apply 2 g topically 2 times daily as needed. 50 g 06/15/19 23 Active Sodium Fluoride (PreviDent 5000 Booster Plus) 1.1 % PSTE 5 g by Dental route daily. 100 mL 3 07/17/19 23 Active chlorhexidine (Peridex) 0.12 % oral solutionIndications:P oor oral hygiene Take 15 mL by mouth 2 times daily. 900 mL 10/30/19 23 Active Active Problems No known active problems Social History Tobacco Use Types Packs/Day Years Used Date Smoking Tobacco: Every Day Cigars Smokeless Tobacco: Never Tobacco Cessation:Ready to Q uit: Not Asked; Counseling Given: Not Answered Comments:Patient stated that he smokes marijuana cigars on a daily basis. Sex and Gender Information Value Date Recorded Sex Assigned at Not on file Legal Sex Male 4:32 PM EST Gender Identity Not on file Sexual Orientation Not on file Last Filed Vital Signs Vital Sign Reading Time Taken Comments Blood Pressure 133/72 06/08/2022 3:08 PM EDT Pulse 100 06/08/2022 3:08 PM EDT Temperature 36.6 C (97.8 F) 06/08/2022 3:08 PM EDT Respiratory Rate 16 06/08/2022 3:08 PM EDT Oxygen Saturation 99% 06/08/2022 3:08 PM EDT Inhaled Oxygen Concentration - - Weight 68 kg (150 lb) 05/22/2022 1:15 PM EST Height 170.2 cm (5' 7 ) 05/22/2022 1:15 PM EST Body Mass Index 23.49 05/22/2022 1:15 PM EST Plan of Treatment Health Maintenance Due Date Last Done Comments HIV Test 2017 HPV Vaccine (1 - Male 3-dose series) 2017 Meningococcal B (Bexsero,OMV ) Vaccine (Optional,16-23 years) 2018 Hepatitis C Antibody 2020 Tdap Booster 2020 Hepatitis A (HAV) Vaccine (optional start 19+ years) 0 2021 Hepatitis B (HBV) Vaccine (1 of 3 - 19+ 3-dose series) 2021 Pneumococcal Vaccine(s) (1 of 2 - PCV) 2021 COVID-19 Vaccine (1 - 2023- season) 2024 Influenza Vaccine (#1) 2024 Shingles (RZV) Vaccine (1 of 2) 2052 Insurance [employer] on file DENTAL - ENVOLVE [employer] D[employer] - [employer] [place] Care Teams Senior National Account Manager Relationship Specialty Start Date End Date Erum Laboy DDS [address] [place] [address] Fellow Dentistry 06/16/22 Cherise Ramirez DMD, MD [address] [id number] Physician Oral & Maxillofacial Surgery 06/16/22 Alfonzo Mccord DDS [address] [place] [address] Fellow Dentistry 10/20/22
--- OUTSIDE RECORDS SUMMARY | 2024-11-26 11:45 | XMS_ITS | Patient Health Record ---
Author Organization [facility] Address [address] [place] [address] Care Team Providers Care Information Analyst Name Role Phone Dr. Logan Adkins Primary Care Provider Reason For Referral No Information Medications Medication SIG (Take, Route, Fr equency, Duration) Notes Start Date End Date Status Ibuprofen 800 MG 1 tablet with food o r milk as needed Orally Three times a day 05/11/2021 Active Ibuprofen 800 MG 1 tablet with food o r milk as needed Orally Three times a day 08/07/2021 Active Plan Of Treatment No Information Insurance Providers Payer Name Payer Address Payer Phone Subscriber Number Group Number Insured Name Patient Relationship to Insured Coverage Start Date Coverage End Date [employer] [place] Medicaid [address] CLAIMS DEPT [facility] [place] [address] [id number] BETTY SALGUERO Self - patient is the insured 3 [facility] [employer] [address] [place] [address] [id number] BETTY SALGUERO Self - patient is the insured 3 [employer]ENTAL [employer] 22 [address] [address] [place] [address] [id number] BETTY SALGUERO Self - patient is the insured 2 3 [employer] MEDICAID [facility] after [employer] 22 [address] [place] [phone] [id number] BETTY SALGUERO Self - patient is the insured 2 3 [facility] ed 22. [address] [place]S [place] [address] [id number] BETTY SALGUERO Self - patient is the insured 2 3 [facility] [place] 22 [address] [place] [address] [id number] BETTY SALGUERO Self - patient is the insured 2 3 Dental [employer] [address] [address] [place] [address] [id number] BETTY SALGUERO Self - patient is the insured 3 Dental [facility] [employer] [address] [place] [address] [id number] BETTY SALGUERO Self - patient is the insured 3
--- OUTSIDE RECORDS SUMMARY | 2024-11-26 11:46 | XMS_ITS | Clinical Summary ---
Author Organization [facility] Address [id number] [address] [place] [address] Care Team Providers Care Trade Mark Examiner Name Role Phone Francisco Montoyaas CARLOTTA-BEEKEEPER Primary Care Provider [phone] Allergies No known active allergies Medications gabapentin [...] him to meet with 1 of the [facility] physicians in 1-2 months. He will update [...] on file Insurance [employer] [employer] Care Teams Trade Mark Examiner Relationship Specialty Start Date End Date Darin Montoya APRN-CNP PCP - General Primary Care Provider 06/19/22
--- OUTSIDE RECORDS SUMMARY | 2024-11-26 11:46 | XMS_ITS | Encounter Summary ---
Author Organization [facility] Address [address] [address] Phone Care Team Providers Care Curator Of Education Name Role Phone Elizabeth Lucero Unavailable Unavailable Marilu Treadwell BDS Unavailable Encounter Details Date Type Department Care Team (Late st Contact Info) Description 09/02/2024 Documentation Only [facility] [address] [place] [phone] Jessica Doty Social History Tobacco Use Types [...] 01/15/2025 10:00 AM EDT Office Visit Orthodontics [address] [place] [address], [address] [place] [address] documented as of this encounter Visit Diagnoses Not on filedocumented in this encounter Care Teams Curator Of Education Relationship Specialty Start Date End Date Elizabeth Lucero Dental Student 07/28/24 Marilu Treadwell BDS Waste Examiner Dentistry 07/28/24 documented as of this encounter
--- OUTSIDE RECORDS SUMMARY | 2024-11-26 11:46 | XMS_ITS | Encounter Summary ---
Author Organization [facility] Address [address] [address] Phone Care Team Providers Care Ward Clerk Name Role Phone Elizabeth Lucero Unavailable Unavailable Marilu Treadwell BDS Unavailable Reason for Visit * Reason Onset Date Comments Treatment Planning 09/04/2024 Encounter Details Date Type Department Care Team (Late st Contact Info) Description 09/04/2024 Documentation Only [facility] [address] [phone] Elizabeth Lucero Social History Tobacco Use Types [...] 10:00 AM EDT Office Visit Orthodontics [address], [address] [place] [address] documented as of this encounter Visit Diagnoses Not on filedocumented in this encounter Care Teams Ward Clerk Relationship Specialty Start Date End Date Elizabeth Lucero Dental Student 07/28/24 Marilu Treadwell BDS Site Head Dentistry 07/28/24 documented as of this encounter
--- OUTSIDE RECORDS SUMMARY | 2024-11-26 11:46 | XMS_ITS | Encounter Summary ---
Author Organization [facility] Address [address] [address] Phone Care Team Providers Care Mini Lab Operator Name Role Phone Elizabeth Lucero Unavailable Unavailable Marilu Treadwell BDS Unavailable Reason for Visit * Reason Onset Date Comments Treatment Planning 09/02/2024 Encounter Details Date Type Department Care Team (Late st Contact Info) Description 09/02/2024 Documentation Only [facility] [address] [place] [phone] Elizabeth Lucero Social History Tobacco Use Types [...] 10:00 AM EDT Office Visit Orthodontics [address], [address] [place] [phone] documented as of this encounter Visit Diagnoses Not on filedocumented in this encounter Care Teams Mini Lab Operator Relationship Specialty Start Date End Date Elizabeth Lucero Dental Student 07/28/24 Marilu Treadwell BDS Stock Manager Dentistry 07/28/24 documented as of this encounter
--- OUTSIDE RECORDS SUMMARY | 2024-11-26 11:46 | XMS_ITS | Clinical Summary ---
Author Organization [facility] Address [address] [address] Phone Care Team Providers Care Special Education Professional Name Role Phone Elizabeth Lucero Unavailable Unavailable Marilu Treadwell BDS Unavailable Allergies No known active allergies Medications No known medications Active Problems No known active problems Encounters Date Type Department Care Team Description 10/13/2024 Documentation Only [facility] [address] [place] [phone] Elizabeth Lucero 09/25/2024 1:00 PM EDT [facility] [address] [place] [phone] Elizabeth Lucero Salam, BDS Defective dental worship (Primary Dx); Dental caries on pit and fissure surface penetrating into pulp 09/04/2024 Documentation Only [facility] [address] [place] [phone] Elizabeth Lucero 09/02/2024 8:45 AM EDT [facility] [address] [place] [phone] Dago Vallejo DDS [place], Allison Mohamed, Sara Caries (Primary Dx); Encounter for dental examination 09/02/2024 Documentation Only [facility] [address] [place] [phone] Elizabeth Lucero 09/02/2024 Documentation Only [facility] [address] [place] [phone] Jessica Doty 09/01/2024 1:00 PM EDT [facility] [address] [phone] Marilu Treadwell BDS [place], Allison Uhlin, Robert J, DDS Caries (Primary Dx) 09/01/2024 8:45 AM EDT [facility] [address] [place] [phone] Elizabeth Lucero Kelly, DDS Caries (Primary Dx) from Last 3 Months Social History Tobacco [...] Sign Reading Time Taken Comments Blood Pressure 138/88 09/25/2024 1:28 PM EDT Pulse 68 09/25/2024 1:28 PM EDT Temperature - - Respiratory Rate 12 09/25/2024 1:28 PM EDT Oxygen Saturation - - Inhaled Oxygen Concentration - - Weight - - Height - - Body Mass Index - - Plan of Treatment Upcoming Encounters Date Type Department Care Team (Late st Contact Info) Description 01/15/2025 10:00 AM EDT Office Visit Orthodontics [address] [place] [address], [address] [place] [phone] Health Maintenance Due Date Last Done Comments HEPATITIS C VIRUS SCREENING 2002 TETANUS 2002 HIV SCREENING DISCUSSION 2017 HPV VACCINE ADOL (1 - Male 3 -dose series) 2017 HPV VACCINE (1 - Male 3-dose series) 2017 HEP B VACCINE (1 of 3 - 19+ 3-dose series) 2021 TDAP (ADULT) 2021 COVID-19 VACCINE (1 - 2023-2 5 season) 2024 INFLUENZA VACCINE (#1) 2024 Dental Oral Exam 11/21/2024 05/20/2024 Dental Prophylaxis 11/21/2024 05/20/2024 PNEUMOCOCCAL VACCINE SERIES Aged Out No longer eligible based on patient's age to complete this topic Procedures Procedure Name Priority Date/Time Associated Diagnosis Comments ASSESSMENT OF A PATIENT Routine 09/26/19 1:00 PM EDT Defective dental worship 14 L RESIN-BASED COMPOSITE - 1 SURFACE, POSTERIOR Routine 09/02/2024 8:45 AM EDT Caries 3 CORE BUILDUP, INCLUDING ANY PINS WHEN REQUIRED Routine 09/01/2024 1:00 PM EDT Caries 2 CORE BUILDUP, INCLUDING ANY PINS WHEN REQUIRED Routine 09/01/2024 8:45 AM EDT Caries PROPHYLAXIS - ADULT Routine 05/20/2024 1 2:00 AM EST COMPREHENSIVE ORAL EVAL - NEW/EST PATIENT Routine 05/20/2024 12:00 AM EST from Last 3 Months or Most Recently Relevant to Health Maintenance Insurance [facility] DENTAL PLAN Care Teams Special Education Professional Relationship Specialty Start Date End Date Elizabeth Lucero Dental Student 07/28/24 Marilu Treadwell BDS Curator [employer] Dentistry 07/28/24
--- OUTSIDE RECORDS SUMMARY | 2024-11-26 11:46 | XMS_ITS | Encounter Summary ---
Author Organization [facility] Address [address] [address] Phone Care Team Providers Care Cardiac Surgeon Name Role Phone Elizabeth Lucero Unavailable Unavailable Marilu Treadwell BDS Unavailable Reason for Visit * Reason Onset Date Comments Complex Treatment Planning 10/13/2024 Encounter Details Date Type Department Care Team (Late st Contact Info) Description 10/13/2024 Documentation Only [facility] [address] [phone] Elizabeth Lucero Social History Tobacco Use Types [...] 10:00 AM EDT Office Visit Orthodontics [address], [address] [place] [phone] documented as of this encounter Visit Diagnoses Not on filedocumented in this encounter Care Teams Cardiac Surgeon Relationship Specialty Start Date End Date Elizabeth Lucero Dental Student 07/28/24 Marilu Treadwell BDS Applications Engineering Manager Dentistry 07/28/24 documented as of this encounter
--- OUTSIDE RECORDS SUMMARY | 2024-11-26 11:46 | XMS_ITS | Clinical Summary ---
Author Organization [facility] Address [facility] [place] [address] Care Team Providers Care Business Division Chair Name Role Phone Tai Dixon MD Unavailable [phone] Allergies No known active allergies Medications calcium [...] Care Team Description 10/12/2024 8:00 AM EDT [facility] [address] [phone] Abdirahman Little, Therapist No-show for appointment (Primary Dx) from Last 3 Months Social [...] is lower risk 9 08/07/2024 Data from: https://www.neighborhoodatlas.medicine.[facility].edu/. Last address used for calculation Keith Viera 08/07/2024 Sex and Gender Information Value [...] 01/04/2005, 05/19/2004, 02/02/2004, Additional history exists [place] [address] [address] [place] [id number] MEDICAID Care Teams Business Division Chair Relationship Specialty Start Date End Date Tai Dixon MD [address] [place] [address] Family Medicine 01/23/24
--- OUTSIDE RECORDS SUMMARY | 2024-11-26 11:46 | XMS_ITS | Clinical Summary ---
Author Organization [facility] Address [address] [place] [address] Care Team Providers Care Finance Admin Name Role Phone Keena Alvarez MD Unavailable [phone] Kimmie Luz NP Unavailable [phone] Rosalind Hawley DO Unavailable [phone] Suleman Leggett Unavailable Allergies No known active [...] Encounters Date Type Department Care Team Description 11/10/2024 Telephone [facility] [address] [facility] [address] [place] [address] Tawanna Laurent, PT re: CX of PT eval 10/28/24 10/08/2024 Telephone [facility] [address] [facility] [address] [place] [address] Isaiah Beasley PTA per Referring provider; PT [...] 2024 Insurance [employer] Care Teams Finance Admin Relationship Specialty Start Date End Date Suleman Leggett PA [address] [place] [address] PCP - [facility] 03/18/24 Keena Alvarez MD [address] [place] [address] Primary Care Provider Family Medicine 11/15/23 Kimmie Luz NP [address] [place] [address] Nurse Practitioner Neurology 01/13/24 Rosalind Hawley DO [address] [place] [address] Referring Physician Neurology 01/13/24
--- OUTSIDE RECORDS SUMMARY | 2024-11-26 12:16 | XMS_ITS | CCD ---
Author Organization [facility] Care Team Providers Care Electrical Test Technician Name Role Phone Juan Madrigal Primary Care Physician Chu Muñoz Attending Unavailable Cuh Muñoz Admitting Unavailable Unavailable Primary Care Provider [...] DARIN Consulting Unavailable Vasilyeva DDS, Erum Unavailable [phone] Ashley ALVAREZ MD, Cherise Unavailable Shammo, STUDENT SERVICES COUNSELOR-BC Darin T Primary Care Provider [phone] MD Tana Ca Admit Provider [phone] MD Tana Ca Attending Provider Shammo, STUDENT SERVICES COUNSELOR-BC Darin T Primary Care Provider DO Christiano Phelps Emergency Provider [phone] Timur, MD Shubham Admit Provider MD Mariana Dingmi Attending Provider [phone] MD Tana Ca Attending Provider Narad DDS, Erum Unavailable Suri DDS, Marceleez Unavailable Shammo, STUDENT SERVICES COUNSELOR-BC Darin T Primary Care Provider MD Shubham Ding Admit Provider MD Shubham Ding Attending Provider Ashley ALVAREZ MD, Cherise Unavailable [phone] ELLEN PAUL Attending Unavailable SHAMMO, DARIN Referring Unavailable SHAMMO, DARIN Primary Care Unavailable VERELLEN MARKHAM Referring Unavailable SHAMMO, DARIN Primary Care Unavailable VERHOELLEN MCCARTNEY Referring Unavailable SHAMMO, DARIN Primary Care Unavailable Shammo, Darin T Primary Care Unavailable Shubham Ding Admitting Unavailable Shubham Ding Attending Unavailable Brandon Ca Admitting Unavailab le Brandon Ca Attending Unavailab le Shammo, Darin T Primary Care Unavailable Marleen , Rosalind Unavailable Keena Alvarez MD Unavailable Natty SYSTEM ARCHIVE ANALYST, Kimmie Unavailable [phone] Marleen DO, Rosalind Unavailable Unavailable Primary Care Provider Unavaillifepoint health Justus Turner Unavailable Shammo MANAGER MASSAGE DEPARTMENT-METAL CONTROL COORDINATOR, Darin Primary Care Provider [phone] Destiny NEWTON, Tai Lepe Unavailable PROVIDER, UNKNOWN Admitting Unavailable ONUR KAPADIA Attending Unavaila ble PROVIDER, UNKNOWN Admitting Unavailable ERIC WOODRUFF Attending Unavaila ble PROVIDER, UNKNOWN Admitting Unavailable JOSE LEVI Attending Unavailable PROVIDER, UNKNOWN Admitting Unavailable MARLIN JOHN Attending Unavailable PROVIDER, UNKNOWN Admitting Unavailable MICHAEL CHAVIS Attending Unavailable PROVIDER, UNKNOWN Admitting Unavailable MICHAEL CHAVIS Attending Unavailable BLACKSTON, BRIAN Franks Attending Unavailable [...] Attending Unavailable HILLS, JUSTUS D Attending Unavailable LAURENT, TAWANNA Attending Unavailable HILLS, JUSTUS D Referring Unavailable [...] Unavailable GILLMOR, KIMMIE Attending Unavailable BLACKSTON, BRIAN T Attending Unavailable HILLS, JUSTUS D Referring Unavailable KACY, MCKINLEY Attending Unavailable HILLS, JUSTUS D Referring Unavailable KACY, MCKINLEY Attending Unavailable HILLS, JUSTUS D Referring Unavailable BLACKSTON, BRIAN T Attending Unavailable HILLS, JUSTUS D Referring Unavailable GILLMOR, KIMMIE Attending Unavailable GILLMOR, KIMMIE Referring Unavailable HILLS, JUSTUS D Attending Unavailable HILLS, JUSTUS D Referring Unavailable ObElizabeth dorsey Unavailable Unavailable Hetou BDS, Salam Unavailable Suri DDSAlfonzo Unavailable [phone] Natty DYERKimmie Unavailable MANPREET KELLEY Attending Unavailable IAN IQBAL Referring [...] or al tablet (20 sources) Start: 05-04-2024 Oyster Shell C alcium 500 MG tablet 05/04/2024 Active Start: 05-04-2024 calcium carbon ate (OS-YELENA 500) 500 mg calcium (1,250 mg) tablet 05/04/2024 Active carBAMazepine 200 mg oral [...] sources) Vitamin D Start: 05-04-2024 cholecalcifero l (Vitamin D-3) 10 MCG (400 UNIT) tablet 05/04/2024 Active Start: 05-04-2024 cholecalcifero l (VITAMIN D3) 400 unit tab 05/04/2024 Active diclofenac sodium 0.01 mg/mg topical [...] 25, 2021 7:46am take 1 tablet by [facility] three times daily as needed cyclobenzaprine (Flexeril) [...] Discontinued 15 MG PO Daily at bedtime 15 October 01, 2022 11:00pm March 09, 2023 [...] Test Name Value Interpretation Reference Range Facility [facility] 08-07-2024 [facility] Office Visit (NPRC21 ) BETTY ROSENBERG ([id number]) 4 M Date Time Provider Department 08/07/24 [...] Kelly, DO 08/07/2024 11:13 AM Signed [facility] [place] August 07, 2024 Betty Rosenberg is a 23 year old currently lives with his 2 brothers He was referred by Ian Iqbal [id number] [facility] [id number]. Chief complaint: Polyarthralgia SUBJECTIVE: Pt was referred by Dr. Iqbal, there are pending future labs. Pt reports he went to [facility] to have the labs drawn. Pt reports his pain is in his bones.He reports pain in right knee, wrists. He has popping in his right leg. He also has right shoulder pain. He has had a bone density test at [facility] and he was diagnosed with osteopenia. Spine Red Flag Betty Rosenberg has no red flag symptoms. 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 Allergies: Reviewed in the EMR Current Medications: Reviewed in the EMR Medical History: Reviewed in the EMR Surgical History: Reviewed in the EMR Psychiatric History: Anxiety Depression He used to see a psychiatrist He has been admitted about 12 times at [facility], for SI He has stopped all meds, [...] as well Review, Ask, Review: Y Follow-up: PRN Manpreet Kelley DO I spent a total of 35 minutes on the date of the service which included preparing to see the patient, [id number] patient car (more content not included)... [facility] Jojo 07-30-2024 CNPN Telephone (NIQ) BETTY ROSENBERG ([id number]) 4 M Date Time Provider Department 07/30/24 IAN IQBAL NIKoby During your visit today, we recorded the following information about you: Case Calle 07/30/2024 3:08 PM Signed Pt called asking me to fax all lab orders to [facility] [phone] - Orders has been faxed to number [...] Encounter Status:Closed by CASE CALLE on 07/30/24 [facility] Progress Noteson 06-11-2024 Rn Mds Coordinator Authentication Interface Message Text [facility], pt is ready for tx. Pt [...] NV: RESTOTooth: 26 Surface: F Normal [facility] 06-03-2024 CNOV Office Visit (SPNMMN ) BETTY ROSENBERG ([id number]) 4 M Date Time Provider Department 06/03/24 11:20 AM IAN IQBAL [facility] During your visit today, we recorded the [...] JOINT ROM: (more content not included)... Normal [facility] Progress Noteson 04-09-2024 Rn Mds Coordinator Authentication Interface Message Text ----- March at 4:15:06 PM ----- ----- Provider: [id number] Resident Lianne -- Clinic: [place] ----- COMPOSITE SABIANIST Patient is scheduled for Restorationism on tooth #2 ODLB and 4 surface MOD. Reviewed Medical History. Pt exhibited the following conditions: No significant medical history Patient is ready for treatment. Topical Benzocaine gel applied at the injection site for 2 minutes. Administered 1 carpules of Lidocaine, 2% with Epinephrine 1:100,000,. Cotton roll isolation achieved. Decay/existing samaritan removed, cavity prepared. Selectively etched enamel with 37% phosphoric acid, rinsed, and blot dried. OptiBond delaney applied and light-cured. Condensed packable composite shade A2 in light cured increments using Toffelmaire matrix band retainer and wedge. Finished with finishing burs, checked occlusion, verified proximal contacts and samaritan was polished. Rinsed and suctioned intraorally, advised patient to not eat until local anesthesia wears off. POST OPERATIVE Bitewing (single) RADIOGRAPH TAKEN. NOTE: Post camryn instructions given to patient,CAMRYN DONE BY NESTOR student Paolo Next Visit: Restorative. ----- Signed on Wednesday, April 10, 2024 at 2:34:52 PM ----- ----- Provider: [id number] Tessa Troncoso DDS -- Clinic: [place] ----- Normal [facility] No Panel Informationon 03-30 Kimmie Luz [...] discussed. Consent was given by the patient. [facility] City Notes [facility] Telephone Encounteron 2024 Rn Mds Coordinator Authentication Interface Message Text Patient is returning a missed call from the clinic about his crown. Pls call pt @ [phone] Thank you I sent a message ton [facility] via [email or web address] Normal [facility] Telephone Encounteron 2023 Rn Mds Coordinator Authentication Interface Message Text Pt calling again wanting to know if prior auth was sent to pt insurance company for [place]. Pt called office 02/19/24 and has not heard back yet. Pt can be reached at [phone]. Message sent to [facility] 03/17/24 at 152 pm Normal [facility] Telephone Encounteron 2023 Rn Mds Coordinator Authentication Interface Message Text Pt calling in because they recentley spoke to their insurance company asking about the prior auth for a crown on tooth #3, pt says that tooth #2 is the one that needs the crown. He stated that the insurance never recieved please resend or contact pt to resolve issue so they can schedule with office. Pt ph:[phone] Normal [facility] Progress Noteson 01-23-2024 Rn Mds Coordinator Authentication Interface Message Text [facility], Pt is ready for tx. Pt [...] things get worse. NV. EXAM Normal [facility] Rn Mds Coordinator Authentication Interface Message Text ----- January at 4:43:21 PM ----- ----- Provider: [id number] Resident Lianne -- Clinic: [place] ----- LIMITED EXAM Patient presents for Scheduled [...] sent today for the crown Next Visit: [place]-Prep. ----- Signed on January at 9:10:19 PM ----- ----- Provider: [id number] - Christian Troncoso DDS -- Clinic: [place] ----- Normal [facility] ALL C REACTIVE PROTEINon CRP [Mass/Vol] mg/L NINF - 0.50 mg/dL [facility] City Notes [facility] CKon 01-08-2024 CK [Catalytic activity/Vol] 95 U/L 39 - 308 U/L [facility] City Notes No Panel Informationon 01-[address] [facility] Progress Noteson 11-22-2023 Rn Mds Coordinator Authentication Interface Message Text Normal [facility] Rn Mds Coordinator Authentication Interface Message Text ----- Wednesday, November 22, 2023 at 1:34:35 PM ----- ----- Provider: [id number] - Resident Allan -- Clinic: [place] ----- LIMITED EXAM Patient presents for Emergency appointment with a CC of fracture of the mesial samaritan tooth # 10 area of their mouth. [...] patient. Patient consented to treatment today. COMPOSITE SABIANIST Patient is scheduled for Restorationism on tooth #10 surface MLF. Reviewed Medical History. Pt exhibited the following conditions: No significant medical history Patient is ready for treatment. Topical Benzocaine gel applied at the injection site for 2 minutes. Administered 1 carpules of . cotton roll isolation achieved. Decay/existing samaritan removed, cavity prepared. Selectively etched enamel with 37% phosphoric acid, rinsed, and blot dried. Xeno IV delaney applied and light-cured. Condensed packable composite shade A2 in light cured increments using Mylar strip and wedge. Finished with finishing burs, checked occlusion, verified proximal contacts and samaritan was polished. Rinsed and suctioned intraorally, advised patient to not eat until local anesthesia wears off. POST OPERATIVE Periapical (single) RADIOGRAPH TAKEN. Next Visit: Extraction (single) ----- Signed on Wednesday, November 22, 2023 at 1:53:10 PM ----- ----- Provider: [id number] - Christian Troncoso DDS -- Clinic: [place] ----- Normal [facility] Progress Noteson 07-24-2023 Rn Mds Coordinator Authentication Interface Message Text ----- Monday, July 24, 2023 at 4:26:32 PM ----- ----- Provider: [id number] - Resident Nithya -- Clinic: [place] ----- COMPOSITE SABIANIST Patient is scheduled for Restorationism on tooth #10-DL and 11-MDL. Reviewed Medical History. Pt exhibited the following conditions: No significant medical history Patient is ready for treatment. Topical Benzocaine gel applied at the injection site for 2 minutes. Administered 1 carpules of Lidocaine, 2% with Epinephrine 1:100,000,. Isolation achieved. Decay/existing samaritan removed, cavity prepared. Selectively etched enamel with 37% phosphoric acid, rinsed, and blot dried. OptiBond delaney applied and light-cured. Condensed packable composite shade a3 in light cured increments using Mylar strip and wedge. Finished with finishing burs, checked occlusion, verified proximal contacts and samaritan was polished. Rinsed and suctioned intraorally, advised patient to not eat until local anesthesia wears off. POST OPERATIVE Periapical (single) RADIOGRAPH TAKEN. NOTE: In the post op x ray I saw that mesial samaritan on # 10 was fractured. It has to be replace in his next appointment Next Visit: Restorative ----- Signed on July at 8:19:57 AM ----- ----- Provider: Michael Troncoso DDS -- Clinic: [place] ----- Normal [facility] XR SPINE CERVICAL 4 OR 5 [...] Chu Adkins on 07/05/2023 4:09 PM Normal [facility] Cholesterol [Mass/volume] in Serum or PlasmaOrdered By: Shubham Ding on 03-10-2023 Cholesterol [Mass/Vol] 117 mg/dL Low 140-200 [facility] Comment on above: Chol less than 200 m g/dl low riskChol 201-239 mg/dl borderline riskChol 240 mg/dl and greater high risk Result Comment: Chol less than 200 mg/dl low risk Chol 201-239 mg/dl borderline risk Chol 240 mg/dl and greater high risk Performed By: #### V [id number], LIPID, TSH3 wRFLX #### [facility] [address] [place] [address] Cholesterol in LDL Calc [Mas s/Vol]Ordered By: Shubham Ding on 03-10-2023 Cholesterol in LDL [Mass/Vol] 64 mg/dL 0-100 [facility] Comment on above: LDL ATP III CLASSIFI CATIONLDL less than 100 mg/dL OptimalLDL 100-129 mg/dL Near or above optimalLDL 130-159 mg/dL Borderline highLDL 160-189 mg/dL HighLDL greater than 189 mg/dL Very high Cholesterol in VLDL Calc [Ma ss/Vol]Ordered By: Shubham Ding on 03-10-2023 Cholesterol in VLDL [Mass/Vol] 8 mg/dL [facility] Lipid Panelon 03-10-2023 LDL Cholesterol,Calculated 64 mg/dL Normal 0-100 [facility] Comment on above: Result Comment: LDL ATP III CLASSIFICATION LDL less than 100 mg/dL Optimal LDL 100-129 mg/dL Near or above optimal LDL 130-159 mg/dL Borderline high LDL 160-189 mg/dL High LDL greater than 189 mg/dL Very high Performed By: #### V [id number], LIPID, TSH3 wRFLX #### [facility] [address] [id number] [facility] Triglyceride w/Reflex 42 mg/dL Normal 0-149 [facility] Comment on above: Result Comment: TRIG ATP III CLASSIFICATION TRIG less than 150 mg/dL Normal TRIG 150-199 mg/dL Borderline high TRIG 200-500 mg/dL High TRIG greater than 500 mg/dL Very high Standard traceable to the Center for Disease Conrtrol and Prevention (CDC) test method. Performed By: #### V [id number], LIPID, TSH3 wRFLX #### [facility] [address] VLDL CHOLESTEROL 8 mg/dL Normal [facility] Comment on above: Performed By: #### V [id number], LIPID, TSH3 wRFLX #### [facility] [address] [id number] [place] Serum or plasma high density lipoprotein (HDL) cholesterol measurementOrdered By: Shubham Ding on 03-10-2023 Cholesterol in HDL [Mass/Vol] 45 mg/dL Normal 23-92 [facility] Comment on above: HDL CHOL ATP-III CLA SSIFICATION Cardiovascular RiskHDL > or equal to 60 mg/dL LOWHDL < 40 mg/dL HIGH Result Comment: HDL CHOL ATP-III CLASSIFICATION Cardiovascular Risk HDL > or equal to 60 mg/dL LOW HDL < 40 mg/dL HIGH Performed By: #### V [id number], LIPID, TSH3 wRFLX #### [facility] [address] [id number] [place] Serum or plasma total choles terol/high density lipoprotein (HDL) cholesterol mass ratOrdered By: Shubham Ding on 03-10-2023 Cholesterol.total/Abi sterol in HDL [Mass ratio] 2.6 {ratio} Normal <5.0 [facility] Comment on above: Performed By: #### V [id number], LIPID, TSH3 wRFLX #### [facility] [address] [place] [address] Thyroid Stim Hormone w/Rflxo n 03-10-2023 Thyroid Stim Hormone w/Rflx 0.83 u[iU]/mL Normal 0.45-5.33 [facility] Comment on above: Performed By: #### V [id number], LIPID, TSH3 wRFLX #### [facility] [address] Thyrotropin [Units/volume] i n Serum or PlasmaOrdered By: Shubham Ding on 03-10-2023 TSH Qn 0.83 m[IU]/L 0.45-5.33 [facility] Triglyceride [Mass/volume] i n Serum or PlasmaOrdered By: Shubham Ding on 03-10-2023 Triglyceride [Mass/Vol] 42 mg/dL 0-149 [facility] Comment on above: TRIG ATP III CLASSIF ICATIONTRIG less than 150 mg/dL NormalTRIG 150-199 mg/dL Borderline highTRIG 200-500 mg/dL High TRIG greater than 500 mg/dL Very highStandard traceable to the Center for Disease Conrtrol and Prevention (CDC) test method. Vitamin D 25 Hydroxy Totalon 03-10-2023 Vitamin D 25 Hydroxy Total 44.6 ng/mL Normal 30-100 [facility] Comment on above: Result Comment: GREY MIN D STATUS 25(OH)VITAMIN D RANGE (ng/mL) Deficient <20 Insufficient 20 to <30 Sufficient 30 to 100 Reference: Richy MF,Al NC, Yvonne BUCHANAN, et al. Evaluation,treatment, and prevention of vitamin D deficiency; an Endocrine Society clinical practice guideline. JCEM. 2010; 96(7):1911-30. PERFORMED BY: [place] [address] PATHOLOGIST SWEEP MOLDER HANNY WEAVER M.D. Performed By: #### V [id number], LIPID, TSH3 wRFLX #### [address] Vitamin D+Metabolites [Mass/ volume] in Serum or PlasmaOrdered By: Shubham Ding on 03-10-2023 Vitamin D+Metabolites [Mass/Vol] 44.6 ng/mL 30-100 [facility] Comment on above: VITAMIN D STATUS 25( [place])VITAMIN D RANGE (ng/mL) Deficient <20 Insufficient 20 to <30Sufficient 30 to 100Reference: Richy MF,Al NC, Yvonne BUCHANAN, et al. Evaluation,treatment, and prevention of vitamin D deficiency; an Endocrine Society clinical practice guideline. JCEM. 2010; 96(7):1911-30. ECG 12 lead ECGon 03-09-[address] [facility] [place] [address] [place] [address] Electrocardiograph Report Signed Patient: Betty Rosenberg MR#: [id number] 140 : 2000 Acct:[id number] Age/Sex: 22 / M ADM Date: 03/09/23 Loc: Room: [address] [place] [address] Type: ADM IN Attending Dr: Shubham Ding [...] Aiden Roy MD 03/10/23 1146 Normal [facility] Cholesterol [Mass/volume] in Serum or PlasmaOrdered By: Shubham Ding on 09-29-2022 Cholesterol [Mass/Vol] 147 mg/dL 140-200 [facility] Comment on above: Chol less than 200 m g/dl low riskChol 201-239 mg/dl borderline riskChol 240 mg/dl and greater high risk Cholesterol in LDL Calc [Mas s/Vol]Ordered By: Shubham Ding on 09-29-2022 Cholesterol in LDL [Mass/Vol] 86 mg/dL 0-100 [facility] Comment on above: LDL ATP III CLASSIFI CATIONLDL less than 100 mg/dL OptimalLDL 100-129 mg/dL Near or above optimalLDL 130-159 mg/dL Borderline highLDL 160-189 mg/dL HighLDL greater than 189 mg/dL Very high Cholesterol in VLDL Calc [Ma ss/Vol]Ordered By: Shubham Ding on 09-29-2022 Cholesterol in VLDL [Mass/Vol] 12 mg/dL [facility] Serum or plasma high density lipoprotein (HDL) cholesterol measurementOrdered By: Shubham Ding on 09-29-2022 Cholesterol in HDL [Mass/Vol] 49 mg/dL 23-92 [facility] Comment on above: HDL CHOL ATP-III CLA SSIFICATION Cardiovascular RiskHDL > or equal to 60 mg/dL LOWHDL < 40 mg/dL HIGH Serum or plasma total choles terol/high density lipoprotein (HDL) cholesterol mass ratOrdered By: Shubham Ding on 09-29-2022 Cholesterol.total/Abi sterol in HDL [Mass ratio] 3.0 {ratio} <5.0 [facility] Thyrotropin [Units/volume] i n Serum or PlasmaOrdered By: Shubham Ding on 09-29-2022 TSH Qn 0.75 m[IU]/L 0.45-5.33 [facility] Triglyceride [Mass/volume] i n Serum or PlasmaOrdered By: Shubham Ding on 09-29-2022 Triglyceride [Mass/Vol] 62 mg/dL 0-149 [facility] Comment on above: TRIG ATP III CLASSIF ICATIONTRIG less than 150 mg/dL NormalTRIG 150-199 mg/dL Borderline highTRIG 200-500 mg/dL High TRIG greater than 500 mg/dL Very highStandard traceable to the Center for Disease Conrtrol and Prevention (CDC) test method. Vitamin D+Metabolites [Mass/ volume] in Serum or PlasmaOrdered By: Shubham Ding on 09-29-2022 Vitamin D+Metabolites [Mass/Vol] 57.5 ng/mL 30-100 [facility] Comment on above: VITAMIN D STATUS 25( [place])VITAMIN D RANGE (ng/mL) Deficient <20 Insufficient 20 to <30Sufficient 30 to 100Reference: Richy MF,Al LUTZ, Yvonne BUCHANAN, et al. Evaluation,treatment, and prevention of vitamin D deficiency; an Endocrine Society clinical practice guideline. JCEM. 2010; 96(7):1911-30. Cholesterol [Mass/volume] in Serum or PlasmaOrdered By: Shubham Ding on 08-04-2022 Cholesterol [Mass/Vol] 133 mg/dL 140-200 [facility] Comment on above: Chol less than 200 m g/dl low riskChol 201-239 mg/dl borderline riskChol 240 mg/dl and greater high risk Cholesterol in LDL Calc [Mas s/Vol]Ordered By: Shubham Ding on 08-04-2022 Cholesterol in LDL [Mass/Vol] 69 mg/dL 0-100 [facility] Comment on above: LDL ATP III CLASSIFI CATIONLDL less than 100 mg/dL OptimalLDL 100-129 mg/dL Near or above optimalLDL 130-159 mg/dL Borderline highLDL 160-189 mg/dL HighLDL greater than 189 mg/dL Very high Cholesterol in VLDL Calc [Ma ss/Vol]Ordered By: Shubham Ding on 08-04-2022 Cholesterol in VLDL [Mass/Vol] 17 mg/dL [facility] Serum or plasma high density lipoprotein (HDL) cholesterol measurementOrdered By: Shubham Ding on 08-04-2022 Cholesterol in HDL [Mass/Vol] 47 mg/dL 29-71 [facility] Comment on above: HDL CHOL ATP-III CLA SSIFICATION Cardiovascular RiskHDL > or equal to 60 mg/dL LOWHDL < 40 mg/dL HIGH Serum or plasma total choles terol/high density lipoprotein (HDL) cholesterol mass ratOrdered By: Shubham Ding on 08-04-2022 Cholesterol.total/Abi sterol in HDL [Mass ratio] 2.8 {ratio} <5.0 [facility] Thyrotropin [Units/volume] i n Serum or PlasmaOrdered By: Shubham Ding on 08-04-2022 TSH Qn 0.91 m[IU]/L 0.45-5.33 [facility] Triglyceride [Mass/volume] i n Serum or PlasmaOrdered By: Shubham Ding on 08-04-2022 Triglyceride [Mass/Vol] 86 mg/dL 0-149 [facility] Comment on above: TRIG ATP III CLASSIF ICATIONTRIG less than 150 mg/dL NormalTRIG 150-199 mg/dL Borderline highTRIG 200-500 mg/dL High TRIG greater than 500 mg/dL Very highStandard traceable to the Center for Disease Conrtrol and Prevention (CDC) test method. Vitamin D+Metabolites [Mass/ volume] in Serum or PlasmaOrdered By: Shubham Ding on 08-04-2022 Vitamin D+Metabolites [Mass/Vol] 46.3 ng/mL 30-100 [facility] Comment on above: VITAMIN D STATUS [...] 08-03-2022 ALT [Catalytic activity/Vol] 26 U/L 7-52 [facility] Albumin [Mass/volume] in Ser um or Plasma by Bromocresol green (BCG) dye binding methoOrdered By: Christiano Phelps on 08-03-2022 Albumin BCG dye [Mass/Vol] 3.9 g/dL 3.5-5.7 [facility] Alkaline phosphatase [Enzyma tic activity/volume] in Serum or PlasmaOrdered By: Christiano Phelps on 08-03-2022 ALP [Catalytic activity/Vol] 64 U/L 34-104 [facility] Amphetamine Screen Ql (U)Ord ered By: Christiano Phelps on 08-03-2022 Amphetamines Ql (U) Negative Negative [facility] Aspartate aminotransferase [ Enzymatic activity/volume] in Serum or PlasmaOrdered By: Christiano Phelps on 08-03-2022 AST [Catalytic activity/Vol] 19 U/L 13-39 [facility] Barbiturates [Presence] in U rine by Screen methodOrdered By: Christiano Phelps on 08-03-2022 Barbiturates Screen Ql (U) Negative Negative [facility] Basophils Auto (Bld) [#/Vol] Ordered By: Christiano Phelps on 08-03-2022 Basophils (Bld) [#/Vol] 0.0 10*3/uL 0.0-0.2 [facility] Basophils/100 WBC Auto (Bld) Ordered By: Christiano Phelps on 08-03-2022 Basophils/100 WBC (Bld) 0.3 % . [facility] Benzodiazepines Screen Ql (U )Ordered By: Christiano Phelps on 08-03-2022 Benzodiazepines Ql (U) Negative Negative [facility] Benzoylecgonine [Presence] i n Urine by Screen methodOrdered By: Christiano Phelps on 08-03-2022 Benzoylecgonine Screen Ql (U) Negative Negative [facility] Bilirubin Test strip Ql (U)O rdered By: Christiano Phelps on 08-03-2022 Bilirubin Ql (U) Negative Negative [facility] Bilirubin.total [Mass/volume ] in Serum or PlasmaOrdered By: Christiano Phelps on 08-03-2022 Bilirubin [Mass/Vol] 0.4 mg/dL 0.3-1.0 [facility] Calcium [Mass/volume] in Ser um or PlasmaOrdered By: Christiano Phelps on 08-03-2022 Calcium [Mass/Vol] 8.9 mg/dL 8.6-10.3 [facility] Cannabinoids [Presence] in U rine by Screen methodOrdered By: Christiano Phelps on 08-03-2022 Cannabinoids Screen Ql (U) Positive Negative [facility] Comment on above: These are unconfirme d results and should not be used for legal purposes. Drug Cut-Off Concentration: AMPH 1000 ng/mL DEANGELO 200 ng/mL BEATRIZ 200 ng/mL COCM 300 ng/mL OP 300 ng/mL PCP 25 ng/mL THC 20 ng/mL Carbon dioxide, total [Moles /volume] in Serum or PlasmaOrdered By: Christiano Phelps on 08-03-2022 CO2 [Moles/Vol] 32.6 mmol/L 21.0-31.0 [facility] Chloride [Moles/volume] in S messi or PlasmaOrdered By: Christiano Phelps on 08-03-2022 Chloride [Moles/Vol] 104 mmol/L 98-107 [facility] Color Auto (U)Ordered By: Radames red Mattie on 08-03-2022 Color (U) Yellow Yellow [facility] Creatinine [Mass/volume] in Serum or PlasmaOrdered By: Christiano Phleps on 08-03-2022 Creatinine [Mass/Vol] 0.77 mg/dL 0.70-1.30 [facility] Eosinophils Auto (Bld) [#/Vo l]Ordered By: Christiano Phelps on 08-03-2022 Eosinophils (Bld) [#/Vol] 0.1 10*3/uL 0.0-0.45 [facility] Eosinophils/100 WBC Auto (Bl d)Ordered By: Christiano Phelps on 08-03-2022 Eosinophils/100 WBC (Bld) 1.7 % . [facility] Erythrocyte distribution wid th Auto (RBC) [Ratio]Ordered By: Christiano Phelps on 08-03-2022 Erythrocyte distribution width (RBC) [Ratio] 13.5 % 12.0-14.8 [facility] Ethanol [Mass/volume] in Ser um or PlasmaOrdered By: Christiano Phelps on 08-03-2022 Ethanol [Mass/Vol] mg/dL [facility] Ethanol [Mass/Vol] TNP [facility] Comment on above: Test not performed Globulin Calc (S) [Mass/Vol] Ordered By: Christiano Phelps on 08-03-2022 Globulin (S) [Mass/Vol] 2.7 g/dL [facility] Glucose [Mass/volume] in Ser um or PlasmaOrdered By: Christiano Phelps on 08-03-2022 Glucose [Mass/Vol] 86 mg/dL 70-100 [facility] Comment on above: ADA recommended refe rence rangeRandom Glucose Reference Range is dependent on time and content of last meal. Glucose of more than 200 mg/dL in a nonstressed, ambulatory subject supports the diagnosis of Diabetes Mellitus. Hematocrit Auto (Bld) [Volum e fraction]Ordered By: Christiano Phelps on 08-03-2022 Hematocrit (Bld) [Volume fraction] 43.8 % 38.8-50.0 [facility] Hemoglobin [Mass/volume] in BloodOrdered By: Christiano Phelps on 08-03-2022 Hemoglobin (Bld) [Mass/Vol] 14.6 g/dL 13.0-17.0 [facility] Ketones Auto test strip (U) [Mass/Vol]Ordered By: Christiano Phelps on 08-03-2022 Ketones (U) [Mass/Vol] Trace Negative [facility] Leukocytes [#/volume] correc michael for nucleated erythrocytes in Blood by Automated counOrdered By: Christiano Phelps on 08-03-2022 WBC corrected for nucl RBC Auto (Bld) [#/Vol] 5.2 10*3/uL 4.1-10.5 [facility] Lymphocytes Auto (Bld) [#/Vo l]Ordered By: Chrisitano Phelps on 08-03-2022 Lymphocytes (Bld) [#/Vol] 1.2 10*3/uL 1.00-4.8 [facility] Lymphocytes/100 WBC Auto (Bl d)Ordered By: Christiano Phelps on 08-03-2022 Lymphocytes/100 WBC (Bld) 23.9 % . [facility] MCH Auto (RBC) [Entitic mass ]Ordered By: Christiano Phelps on 08-03-2022 MCH (RBC) [Entitic mass] 28.8 pg 27.5-35.2 [facility] MCHC Auto (RBC) [Mass/Vol]Or dered By: Christiano Phelps on 08-03-2022 MCHC (RBC) [Mass/Vol] 33.5 g/dL 32.5-35.6 [facility] MCV Auto (RBC) [Entitic vol] Ordered By: Christiano Phelps on 08-03-2022 MCV (RBC) [Entitic vol] 86.2 fL 83.5-101 [facility] Monocyte distribution width [Entitic volume] in Blood by AutomatedOrdered By: Christiano Phelps on 08-03-2022 Monocyte distribution width Auto (Bld) [Entitic vol] 18.07 % 0.00-20.00 [facility] Monocytes Auto (Bld) [#/Vol] Ordered By: Christiano Phelps on 08-03-2022 Monocytes (Bld) [#/Vol] 0.4 10*3/uL 0.0-0.8 [facility] Monocytes/100 WBC Auto (Bld) Ordered By: Christiano Phelps on 08-03-2022 Monocytes/100 WBC (Bld) 8.3 % . [facility] Neutrophils Auto (Bld) [#/Vo l]Ordered By: Christiano Phelps on 08-03-2022 Neutrophils (Bld) [#/Vol] 3.4 10*3/uL 1.8-7.7 [facility] Neutrophils/100 WBC Auto (Bl d)Ordered By: Christiano Phelps on 08-03-2022 Neutrophils/100 WBC (Bld) 65.8 % . [facility] Nitrite Test strip Ql (U)Ord ered By: Christiano Phelps on 08-03-2022 Nitrite Ql (U) Negative Negative [facility] No Panel InformationOrdered By: Christiano Phelps on 08-03-2022 Estimated GFR (CKD-EPI) > 60.0 mL/Min [facility] Creatinine Clearance (Chem 144.27 [facility] Nucleated erythrocytes [Pres ence] in Blood by Automated countOrdered By: Christiano Phelps on 08-03-2022 Nucleated RBC Auto Ql (Bld) 0.2 /100{WBC} 0-0.5 [facility] Opiates [Presence] in Urine by Screen methodOrdered By: Christiano Phelps on 08-03-2022 Opiates Screen Ql (U) Negative Negative [facility] Phencyclidine Screen Ql (U)O rdered By: Christiano Phelps on 08-03-2022 Phencyclidine Ql (U) Negative Negative [facility] Platelet mean volume Auto (B ld) [Entitic vol]Ordered By: Christiano Phelps on 08-03-2022 Platelet mean volume (Bld) [Entitic vol] 8.8 fL 6.6-10.1 [facility] Platelets Auto (Bld) [#/Vol] Ordered By: Christiano Phelps on 08-03-2022 Platelets (Bld) [#/Vol] 201 10*3/uL 150-450 [facility] Potassium [Moles/volume] in Serum or PlasmaOrdered By: Christiano Phelps on 08-03-2022 Potassium [Moles/Vol] 4.0 mmol/L 3.5-5.1 [facility] Protein Auto test strip (U) [Mass/Vol]Ordered By: Christiano Phelps on 08-03-2022 Protein (U) [Mass/Vol] Negative Negative [facility] Protein [Mass/volume] in Ser um or PlasmaOrdered By: Christiano Phelps on 08-03-2022 Protein [Mass/Vol] 6.6 g/dL 6.4-8.9 [facility] RBC Auto (Bld) [#/Vol]Ordere d By: Christiano Phelps on 08-03-2022 RBC (Bld) [#/Vol] 5.08 10*6/uL 3.90-5.60 [facility] Serum or plasma albumin/glob ulin mass ratioOrdered By: Christiano Phelps on 08-03-2022 Albumin/Globulin [Mass ratio] 1.4 {ratio} [facility] Serum or plasma anion gap de terminationOrdered By: Christiano Phelps on 08-03-2022 Anion gap [Moles/Vol] 6.4 mmol/L 6.0-15.0 [facility] Sodium [Moles/volume] in Ser um or PlasmaOrdered By: Christiano Phelps on 08-03-2022 Sodium [Moles/Vol] 139 mmol/L 136-145 [facility] Specific gravity Auto test s trip (U) [Rel density]Ordered By: Christiano Phelps on 08-03-2022 Specific gravity (U) [Rel density] 1.023 1.001-1.030 [facility] Urea nitrogen [Mass/volume] in Serum or PlasmaOrdered By: Christiano Phelps on 08-03-2022 Urea nitrogen [Mass/Vol] 12 mg/dL 7-25 [facility] Urine clarity by refractomet ry automatedOrdered By: Christiano Phelps on 08-03-2022 Clarity Refractometry automated (U) Clear Clear [facility] Urine glucose measurement by automated test strip (mass/volume)Ordered By: Christiano Phelps on 08-03-2022 Glucose Auto test strip (U) [Mass/Vol] Normal mg/dL Normal [facility] Urine hemoglobin detection b y automated test stripOrdered By: Christiano Phelps on 08-03-2022 Hemoglobin Auto test strip Ql (U) Negative Negative [facility] Urine leukocyte esterase det ection by automated test stripOrdered By: Christiano Phelps on 08-03-2022 Leukocyte esterase Auto test strip Ql (U) Negative Negative [facility] Urobilinogen Auto test strip (U) [Mass/Vol]Ordered By: Christiano Phelps on 08-03-2022 Urobilinogen (U) [Mass/Vol] Normal mg/dL Normal [facility] WBC Auto (Bld) [#/Vol]Ordere d By: Christiano Phelps on 08-03-2022 WBC (Bld) [#/Vol] 5.2 10*3/uL 4.1-10.5 [facility] pH Auto test strip (U)Ordere d By: Christiano Phelps on 08-03-2022 pH (U) 7.5 [pH] 5.0-9.0 [facility] Cholesterol [Mass/volume] in Serum or PlasmaOrdered By: Brandon Ca on 06-13-2022 Cholesterol [Mass/Vol] 118 mg/dL 140-200 [facility] Comment on above: Chol less than 200 m g/dl low riskChol 201-239 mg/dl borderline riskChol 240 mg/dl and greater high risk Cholesterol in LDL Calc [Mas s/Vol]Ordered By: Brandon Ca on 06-13-2022 Cholesterol in LDL [Mass/Vol] 66 mg/dL 0-100 [facility] Comment on above: LDL ATP III CLASSIFI CATIONLDL less than 100 mg/dL OptimalLDL 100-129 mg/dL Near or above optimalLDL 130-159 mg/dL Borderline highLDL 160-189 mg/dL HighLDL greater than 189 mg/dL Very high Cholesterol in VLDL Calc [Ma ss/Vol]Ordered By: Brandon Ca on 06-13-2022 Cholesterol in VLDL [Mass/Vol] 10 mg/dL [facility] Serum or plasma high density lipoprotein (HDL) cholesterol measurementOrdered By: Brandon Ca on 06-13-2022 Cholesterol in HDL [Mass/Vol] 42 mg/dL 29- [facility] Comment on above: HDL CHOL ATP-III CLA SSIFICATION Cardiovascular RiskHDL > or equal to 60 mg/dL LOWHDL < 40 mg/dL HIGH Serum or plasma total choles terol/high density lipoprotein (HDL) cholesterol mass ratOrdered By: Bradnon Ca on 06-13-2022 Cholesterol.total/Abi sterol in HDL [Mass ratio] 2.8 {ratio} <5.0 [facility] Thyrotropin [Units/volume] i n Serum or PlasmaOrdered By: Brandon Ca on 06-13-2022 TSH Qn 1.03 m[IU]/L 0.45-5.33 [facility] Triglyceride [Mass/volume] i n Serum or PlasmaOrdered By: Brandon Ca on 06-13-2022 Triglyceride [Mass/Vol] 52 mg/dL 0-149 [facility] Comment on above: TRIG ATP III CLASSIF ICATIONTRIG less than 150 mg/dL NormalTRIG 150-199 mg/dL Borderline highTRIG 200-500 mg/dL High TRIG greater than 500 mg/dL Very highStandard traceable to the Center for Disease Conrtrol and Prevention (CDC) test method. Vitamin D+Metabolites [Mass/ volume] in Serum or PlasmaOrdered By: Brandon Ca on 06-13-2022 Vitamin D+Metabolites [Mass/Vol] 50.0 ng/mL 30-100 [facility] Comment on above: VITAMIN D STATUS 25( [place])VITAMIN D RANGE (ng/mL) Deficient <20 Insufficient 20 to <30Sufficient 30 to 100Reference: Richy MF,Al NC, Yvonne BUCHANAN, et al. Evaluation,treatment, and prevention of vitamin D deficiency; an Endocrine Society clinical practice guideline. JCEM. 2010; 96(7):1911-30. ACETAMINOPHENon 06-12-2022 Acetaminophen [Mass/Vol] ug/mL Critically low 10.0-30.0 [facility] Comment on above: Performed By: #### A CET, SALYC, ETH, CMP #### [facility] [address] [address] [address] Annabella Lara CBC AUTO DIFFon 06-12-2022 BASO # 0.0 103/ul Normal 0.0-0.1 [facility] Comment on above: Performed By: #### C BC #### [facility] [address] [place] [address] Dr. Annabella Lara Basophils/100 WBC (Bld) 0.3 % Normal 0.2-2.0 [facility] Comment on above: Performed By: #### C BC #### [facility] [address] [address] [address] Annabella Lara EO # 0.0 103/ul Normal 0.0-0.7 [facility] Comment on above: Performed By: #### C BC #### [facility] [address] [address] [address] Annabella Lara Eosinophils/100 WBC (Bld) 0.5 % Critically low 0.9-7.0 [facility] Comment on above: Performed By: #### C BC #### [facility] [address] [address] [address] Annabella Lara Erythrocyte distribution width (RBC) [Ratio] 12.1 % Normal 11.0-15.0 [facility] Comment on above: Performed By: #### C BC #### [facility] [address] [place] [address] Dr. Annabella Lara Hematocrit (Bld) [Volume fraction] 46.8 % Normal 42.0-54.0 [facility] Comment on above: Performed By: #### C BC #### [facility] [address] [address] [address] Annabella Lara Hemoglobin (Bld) [Mass/Vol] 15.9 g/dL Normal 14.0-18.0 [facility] Comment on above: Performed By: #### C BC #### [facility] [address] [address] [address] Annabella Lara IG # 0.02 10e3/ul Normal 0.00-0.03 [facility] Comment on above: Performed By: #### C BC #### [facility] [address] [address] [address] Annabella Lara IG % 0.3 % Normal 0.0-0.5 [facility] Comment on above: Performed By: #### C BC #### [facility] [address] [place] [address] Dr. Annabella Lara LYMPH # 1.2 103/ul Normal 1.2-3.8 [facility] Comment on above: Performed By: #### C BC #### [facility] [address] [place] [address] Dr. Annabella Lara Lymphocytes/100 WBC (Bld) 15.9 % Critically low 20.5-60.0 [facility] Comment on above: Performed By: #### C BC #### [facility] [address] [place] [address] Dr. Annabella Lara MANUAL DIFF REQ NO Normal [facility] Comment on above: Performed By: #### C BC #### [facility] [address] [place] [address] Dr. Annabella Lara MCH (RBC) [Entitic mass] 28.9 pg Normal 25.9-34.0 [facility] Comment on above: Performed By: #### C BC #### [facility] [address] [place] [address] Dr. Annabella Lara MCHC (RBC) [Mass/Vol] 34.0 g/dL Normal 29.9-35.2 [facility] Comment on above: Performed By: #### C BC #### [facility] [address] [address] [address] Annabella Lara MCV (RBC) [Entitic vol] 84.9 fL Normal 80.0-94.0 [facility] Comment on above: Performed By: #### C BC #### [facility] [address] [address] [address] Annabella Lara MONO # 0.4 103/ul Normal 0.3-0.8 [facility] Comment on above: Performed By: #### C BC #### [facility] [address] [place] [address] Dr. Annabella Lara Monocytes/100 WBC (Bld) 5.6 % Normal 1.7-12.0 [facility] Comment on above: Performed By: #### C BC #### [facility] [address] [place] [address] Dr. Annabella Lara NEUT # 5.9 103/ul Normal 1.4-6.5 [facility] Comment on above: Performed By: #### C BC #### [facility] [address] [place] [address] Dr. Annabella Lara Neutrophils/100 WBC (Bld) 77.4 % Critically high 43.0-75.0 [facility] Comment on above: Performed By: #### C BC #### [facility] [address] [place] [address] Dr. Annabella Lara Platelet mean volume (Bld) [Entitic vol] 10.2 fL Normal 9.5-13.5 [facility] Comment on above: Performed By: #### C BC #### [facility] [address] [place] [address] Dr. Annabella Lara PLT 231 103/ul Normal 150-450 [facility] Comment on above: Performed By: #### C BC #### [facility] [address] [place] [address] Dr. Annabella Lara RBC 5.51 106/ul Normal 4.70-6.10 [facility] Comment on above: Performed By: #### C BC #### [facility] [address] [address] [address] Annabella Lara WBC 7.6 103/ul Normal 4.0-11.0 [facility] Comment on above: Performed By: #### C BC #### [facility] [address] [address] [address] Annabella Lara Covid-19 PCR ([facility])on 05-17 SARS-CoV-2 (COVID-19) RNA KATY+probe Ql (Unsp spec) Not detected Normal NOT DETECTED [facility] Comment on above: Result Comment: When [...] for this test is supported by the [place] of [employer] and Human Service's declaration that [...] used). Performed By: #### C VDTBH #### [facility] [address] [address] [address] Annabella Lara DRUG SCREEN RAPID (URINE)on 06-12-2022 AMP Negative Normal NEGATIVE [facility] Comment on above: Performed By: #### D RUGRPD ####[facility] [address] [id number] Annabella Lara BAR Negative Normal NEGATIVE [facility] Comment on above: Performed By: #### D RUGRPD ####[facility] [address] [id number] Lara BUP Negative Normal NEGATIVE [facility] Comment on above: Performed By: #### D RUGRPD ####[facility] [address] [place], [place] [id number]. Annabella Lara BZO Negative Normal NEGATIVE [facility] Comment on above: Performed By: #### D RUGRPD ####[facility] [address] [place], [place] [address]Dr. Annabella Lara DEQUAN Negative Normal NEGATIVE [facility] Comment on above: Performed By: #### D RUGRPD ####[facility] [address] [place], [place] [address]Dr. Annabella Lara CUT-OFFS SEE BELOW Normal [facility] Comment on above: Result Comment: AMP (Amphetamine): 500ng/mL, BAR (Barbituates): 200 ng/mL, BZO (Benzodiazepines): 150 ng/mL, BUP (Buprenorphine): 10 ng/mL, EDQUAN (Cocaine): 150 ng/mL, mAMP (Methamphetamine): 500 ng/mL, MTD (Methadone): 200 ng/mL, OPI (Opiates): 100 ng/mL, OXY (Oxycodone): 100 ng/mL, PCP (Phencyclidine): 25 ng/mL, PPX (Propoxyphene): 300 ng/mL, THC (Cannabinoids): 50 ng/mL, TCA (Trycyclic Antidepressants): 300 ng/mL Performed By: #### D RUGRPD ####[facility] [address] [place], [place] [address]Dr. Annabella Lara DRUG CUT HEADER DRUG CLASS TEST SYSTEM CUT-OFF CONCENTRATIONS ARE FOLLOWS: Normal [facility] Comment on above: Performed By: #### D RUGRPD ####[facility] [address] [place], [place] [address]Dr. Annabella Lara mAMP Negative Normal NEGATIVE [facility] Comment on above: Performed By: #### D RUGRPD ####[facility] [address] [place], [place] [address]Dr. Annabella Lara MTD Negative Normal NEGATIVE [facility] Comment on above: Performed By: #### D RUGRPD ####[facility] [address] [place], [place] [address]Dr. Annabella Lara OPI Negative Normal NEGATIVE [facility] Comment on above: Performed By: #### D RUGRPD ####[facility] [address] [address]Dr. Annabella Lara OXY Negative Normal NEGATIVE [facility] Comment on above: Performed By: #### D RUGRPD ####[facility] [address] [address]Dr. Annabella Lara PCP Negative Normal NEGATIVE [facility] Comment on above: Performed By: #### D RUGRPD ####[facility] [address] [address]Dr. Annabella Lara PPX Negative Normal NEGATIVE [facility] Comment on above: Performed By: #### D RUGRPD ####[facility] [address] [place], [place] [address]Dr. Annablela Lara TCA Positive Abnormal NEGATIVE [facility] Comment on above: Performed By: #### D RUGRPD ####[facility] [address] [place], [place] [address]Dr. Annabella Lara THC Positive Abnormal NEGATIVE [facility] Comment on above: Performed By: #### D RUGRPD ####[facility] [address] [place], [place] [address]Dr. Annabella Lara ETHANOL (BLD ALC)on 06-13-19 23 ALC NOTE NOTE: 80 mg/dl is th e legal limit for a blood alcohol level Normal [facility] Comment on above: Performed By: #### A CET, SALYC, ETH, CMP ####[facility] [address] [place], [place] [address]Dr. Annabella Lara Ethanol [Mass/Vol] mg/dL Normal [facility] Comment on above: Performed By: #### A CET, SALYC, ETH, CMP ####[facility] [address] [place], [place] [address]Dr. Annabella Lara PROF 14(COMP METB)on 023 Albumin [Mass/Vol] 4.4 g/dL Normal 3.4-5.0 [facility] Comment on above: Performed By: #### A CET, SALYC, ETH, CMP ####[facility] [address] [address]Dr. Annabella Lara Albumin/Globulin [Mass ratio] 1.3 {ratio} Normal [facility] Comment on above: Performed By: #### A CET, SALYC, ETH, CMP ####[facility] [address] [address]Dr. Annabella Lara ALP [Catalytic activity/Vol] 82 U/L Normal 46-116 [facility] Comment on above: Performed By: #### A CET, SALYC, ETH, CMP ####[facility] [address] [address]Dr. Annabella Lara ALT [Catalytic activity/Vol] 57 U/L Normal 16-63 [facility] Comment on above: Performed By: #### A CET, SALYC, ETH, CMP ####[facility] [address] [address]Dr. Ngozigenna Lara Anion gap [Moles/Vol] 13.6 mmol/L Normal [facility] Comment on above: Performed By: #### A CET, SALYC, ETH, CMP ####[facility] [address] [address]Dr. Annabella Lara AST [Catalytic activity/Vol] 25 U/L Normal 15-37 [facility] Comment on above: Performed By: #### A CET, SALYC, ETH, CMP ####[facility] [address] [address]Dr. Annabella Lara Bilirubin [Mass/Vol] 0.5 mg/dL Normal 0.2-1.0 [facility] Comment on above: Performed By: #### A CET, SALYC, ETH, CMP ####[facility] [address] [address]Dr. Annabella Lara Calcium [Mass/Vol] 9.2 mg/dL Normal 8.5-10.1 [facility] Comment on above: Performed By: #### A CET, SALYC, ETH, CMP ####[facility] [address] [address]Dr. Annabella Lara Chloride [Moles/Vol] 104 mmol/L Normal 98-107 [facility] Comment on above: Performed By: #### A CET, SALYC, ETH, CMP ####[facility] [address] [address]Dr. Annabella Lara CO2 [Moles/Vol] 27.7 mmol/L Normal 21.0-32.0 [facility] Comment on above: Performed By: #### A CET, SALYC, ETH, CMP ####[facility] [address] [address]Dr. Annabella Lara Creatinine [Mass/Vol] 0.71 mg/dL Normal 0.70-1.30 [facility] Comment on above: Performed By: #### A CET, SALYC, ETH, CMP ####[facility] [address] [address]Dr. Annabella Lara EGFR-AF SERBIAN >60 Normal >=60 [facility] Comment on above: Performed By: #### A CET, SALYC, ETH, CMP ####[facility] [address] [address]Dr. Annabella Lara EGFR-NON AF SERBIAN >60 Normal >=60 [facility] Comment on above: Performed By: #### A CET, SALYC, ETH, CMP ####[facility] [address] [address]Dr. Annabella Lara Globulin (S) [Mass/Vol] 3.4 g/dL Normal [facility] Comment on above: Performed By: #### A CET, SALYC, ETH, CMP ####[facility] [address] [address]Dr. Annabella Lara Glucose [Mass/Vol] 96 mg/dL Normal 74-106 [facility] Comment on above: Performed By: #### A CET, SALYC, ETH, CMP ####[facility] [address] [address]Dr. Annabella Lara Potassium [Moles/Vol] 4.3 mmol/L Normal 3.5-5.1 [facility] Comment on above: Performed By: #### A CET, SALYC, ETH, CMP ####[facility] [address] [id number]. Annabella Lara Protein [Mass/Vol] 7.8 g/dL Normal 6.4-8.2 [facility] Comment on above: Performed By: #### A CET, SALYC, ETH, CMP ####[facility] [address] [id number]. Annabella Lara Sodium [Moles/Vol] 141 mmol/L Normal 136-145 [facility] Comment on above: Performed By: #### A CET, SALYC, ETH, CMP ####[facility] [address] [address]Dr. Annabella Lara Urea nitrogen [Mass/Vol] 13.0 mg/dL Normal 6.4-19.3 [facility] Comment on above: Performed By: #### A CET, SALYC, ETH, CMP ####[facility] [address] [address]Dr. Annabella Lara Urea nitrogen/Creatinine [Mass ratio] 18.3 mg/mg Normal [facility] Comment on above: Performed By: #### A CET, SALYC, ETH, CMP ####[facility] [address] [address]Dr. Annabella Lara SALICYLATEon 06-12-2022 SALICYLATE <2.8 Normal <=19.9 [facility] Comment on above: Performed By: #### A CET, SALYC, ETH, CMP #### [facility] [address] [address] [address] Annabella Lara XR CSPINE MIN 4 [...] normal cervical spine. Electronically authenticated by: SANKET Brown: 2022-06-04 14:08 Normal [facility] DRUG SCREEN RAPID (URINE)on 05-28-2022 AMP Negative Normal NEGATIVE [facility] Comment on above: Performed By: #### D RUGRPD ####[facility] [address] [place] [address]Dr. Ngozigenna Lara BAR Negative Normal NEGATIVE [facility] Comment on above: Performed By: #### D RUGRPD ####[facility] [address] [place] [address]Dr. Ngozigenna Lara BUP Negative Normal NEGATIVE [facility] Comment on above: Performed By: #### D RUGRPD ####[facility] [address] [place] [address]Dr. Annabella Lara BZO Negative Normal NEGATIVE [facility] Comment on above: Performed By: #### D RUGRPD ####[facility] [address] [place] [address]Dr. Ngozigenna Lara DEQUAN Negative Normal NEGATIVE [facility] Comment on above: Performed By: #### D RUGRPD ####[facility] [address] [place] [address]Dr. Annabella Lara CUT-OFFS SEE BELOW Normal [facility] Comment on above: Result Comment: AMP (Amphetamine): 500ng/mL, BAR (Barbituates): 200 ng/mL, BZO (Benzodiazepines): 150 ng/mL, BUP (Buprenorphine): 10 ng/mL, DEQUAN (Cocaine): 150 ng/mL, mAMP (Methamphetamine): 500 ng/mL, MTD (Methadone): 200 ng/mL, OPI (Opiates): 100 ng/mL, OXY (Oxycodone): 100 ng/mL, PCP (Phencyclidine): 25 ng/mL, PPX (Propoxyphene): 300 ng/mL, THC (Cannabinoids): 50 ng/mL, TCA (Trycyclic Antidepressants): 300 ng/mL Performed By: #### D RUGRPD ####[facility] [address] [place] [address]Dr. Annabella Lara DRUG CUT HEADER DRUG CLASS TEST SYSTEM CUT-OFF CONCENTRATIONS ARE FOLLOWS: Normal [facility] Comment on above: Performed By: #### D RUGRPD ####[facility] [address] [place] [address]Dr. Annabella Lara mAMP Negative Normal NEGATIVE [facility] Comment on above: Performed By: #### D RUGRPD ####[facility] [address] [place] [address]Dr. Annabella Lara MTD Negative Normal NEGATIVE [facility] Comment on above: Performed By: #### D RUGRPD ####[facility] [address] [place] [address]Dr. Annabella Lara OPI Negative Normal NEGATIVE [facility] Comment on above: Performed By: #### D RUGRPD ####[facility] [address] [place] [address]Dr. Annabella Lara OXY Negative Normal NEGATIVE [facility] Comment on above: Performed By: #### D RUGRPD ####[facility] [address] [place] [address]Dr. Annabella Lara PCP Negative Normal NEGATIVE [facility] Comment on above: Performed By: #### D RUGRPD ####[facility] [address] [place] [address]Dr. Annabella Lara PPX Negative Normal NEGATIVE [facility] Comment on above: Performed By: #### D RUGRPD ####[facility] [address] [place] [address]Dr. Ngozigenna Marco TCA Positive Abnormal NEGATIVE [facility] Comment on above: Performed By: #### D RUGRPD ####[facility] [address] [place] [address]Dr. Annabella Marco THC Positive Abnormal NEGATIVE [facility] Comment on above: Performed By: #### D RUGRPD ####[facility] [address] [place], [place] [address]Dr. Annabella Lara YESENIA w/Reflex if POSon 2022 Nuclear Ab Ql (S) Negative Invalid Interpretation Code Negative [facility] Comment on above: Result Comment: Perf ormed at: [facility] [address], [place] [id number] PhD Missael Oneal Performed By: #### 2 469475, 0837524, 00596074, 66796603, 3382229, 47095251, 7921794, 44442958 #### [facility] [address] [place] [address] Coding Summary.on 04-23-2022 Coding Summary. CD:[id number] G h0bWw+PGhlYWQ+YY0VOBW rG03dxYSkaY0CA2vTND6V UKTUZTWZCR4LFK8ttCW6F DrlG4ZbbjBs CjortLBzAX05LKi2WQN6u ElgLDknfX1dhDClB0d6Wx StRQ84zI83VMqxWOMeKmE 3LjZpbjsgbWFy H8kxCkBesULjUcu+PHRhY mxlIHdpZHRoPScxMDAlJy JysCrwLF0tSh2lVEVpEPM vbGxhcHNlOiBj k7qyUXFwMJxuCN8ffUwzN 1AvgFJ4DRXkc2g0Kk21xR I+IXDrZHV7gCugYSqsc68 9OkYyi0dpGBX2 nYYkDMjlNYV5E19am2S3P DDoCUSmAAW8pHJ4aB8zzT ndcldeA7RthNTrRtA9ZAQ 3sIEaxG8gnNxk sjcyzK3zOhe+P48TOP6IW NIVNP1ONxc6H1QtIcwopN I+HO03GQKsBY58mSMvrHI ez6oikBt7GdSy HGEdELE0tOtgASgps4RbL JHkG20uhKTqg7Y7OICftY kzbATuVjDjbEM7uG8iUId idjpmn6vbtyuu Ywids3yxez61jO52P06tK JleHDGrFTD5CPHySXGskN ilpi0feR4nXl3+CQnpg6i df6uleHy3FcSh XENqpsVwhEhvQIZ6r8YsT l15S9SfaSbtw2EaFsd6wz 32fQQfq1I7xGZ9WXpkCDI ktY0dBBcmGbV9 TBTdGkZziA49iJVjMTboW j3kwUvglWcoEO0vWTSiza doEQYhwZ4cELZcnCTznDd mEF4lCWJukvbm n450ToJtAGD1DDRluDFrH 0ZkxD3aNoPdSQUgPEMgZ8 VkdIQoVKyqW055JMzyJgR 6QVGudlRkT6Qf AUBbvJtkWaB0o8L3Jc3Zr 3KnvbapEZV6HRgbCITbTj U8FxFkKuO2J0HsUok9WNU vuUnhRB1kR0Sf RHDultarwvtltVF3LOVmP VTtwG14eQJwQZpnSi2fc9 O9x585QAQnXUGwvZ71Zn6 udDogMTBwdCBU pX7jvxqjp9zotrbbAvFbC PFpWIi6SNd9TBYazXnbDv GbLZX6NxA8GRR6zLUavU6 lmWeyrhoexF2o Oyc+J57lkW2tAAC4PXI0p kgoOKQchjKbBW00QK44K8 RyPjwvdGFibGU+PGRpdiB ezGqpZB1cOnFw a6uor9JiHEplW0XnWLWoN VnqFyd7HRCiVOT9zVE2jT 2wBSStPRpvo8B6qZU1F4O bzxYtlj0ze3fx EUXiHXctO77fgBVjz3E8Q XCcqQA7EUQuyJgmUkKxgR 93Oyc+FLSuhKzjq0TxItw ho2ugk6eohPz6 OzKhUVIfkkKpjOzdTPY8f 8TxHi72N45pRHusNYScWX XoHGJuLRZmlRfvpd3llW1 wIi8+PGNvbCB3 wPN2gK4mPBWlJhO4BAxpQ 323LhPpkUGkNwcny3wkq1 xisVn3QcSkCAHqmlWvhFu cKYD4n0IoMl88 J13bGLgxYRYeDUUfUTMbV FPwwObewq4okV1tSj9+PC 8hp8yrht64kS66iYU+PHR yNYS3uVowOGwg QZJoxM7dETbuLlT7LMKiR qIsvI57cLDyWFdfLk4uqC zbkRumNW0wSDRrwiuvm46 3WoJsn2yuNFTd fHDbKZuhGZR7K06vf0V3R IRfWYKkKDI0aOR4mW8zaJ lnbjogbGVmdDsgdmVydGl dYPegUSvsC786 IHRvcDsnPlBhdGllbnQgT hMqDYh2H8AnCyp8OCZdxR puOW1ymTSkIZcyPm5mmGy czMscBS3vFVFm wpvzh142UwMaz1jkVPEiz UDmWLcrNDL8Z67lo7M5HG WeJARdNNC5jFC0mJ9jqIv nbjogbGVmdDsg bvHgyGdsXPktSCiyH059D HRvcDsnPkJpcnRoIERhdG W1HQ73LU21yIDjk5J7zXO 4X9YzEIKakehq czwixER3MNOhJONvmR28T a4ikRtuRp2cZMItATT6FN FayHEcN7CcsN3rXwOuVJV sMCBiC5TqsSTr KUcnA289SXhyDvE6BEVpd dWrG5WsVCJjjMynCzU1s6 G4Wi8YQ0X6TV99WI88rGZ tf7B5kJJ9X3Ak HKKojdshyhofzZE8VQCqX KUruO90Ve5ofLekMb8iSE ExRHB6NWQizSBbZ4MuyB9 yOiAjMDAwMDAw I1SukRRiVDirO689GSizU aX5GQEvncSdK0GgRQPmuW dmSdM0j4V0Nj5BZKg3NR0 1OT71bTHpw6S1 gOD8R0EvHKOweuapgnfqy RW5LZCtFDYrlF56Wa5jlU wyCy9vYIIgVKN2WGCwtRM jM4KhhF3qXsEf KCRuTMKmB9YuiRQeFErsV 911KStbQoU9IMSibhIbT2 IuPFCewJklLbD2t5T1Ex4 WFHVqND79JHA9 aDS8WY30SB82I1DbGqscp GFibGU+PHRhYmxlIHdpZH RoPScxMDAlJyBzdHlsZT0 zHy7vSTCdBIPp fGsonHEgIdYss6lxKJXaC GncRF9oxEfcS1UmrAH3BW Ral3t1Px48R07xG8NkqAJ +QIVlwXD5hTR2 gO2aImOkWcV6ZPdtD805W sUlnBLoPieya3iax2zsdM i6KmJ3LJBejvQzeLiwYTL 8n2YgBq58Q86b IHdpZHRoPSIxNSUiIHZhb Pgvyv5wgG9cBe9+PGNvbC X1yVB9wT3zFbYxGpJ9HVz kL799EjDobVPe Oizui9hzg2fgtRr9PmZpF ERowzKjoEogHIT4r2ZqPg 69I4DstRzvs3LlMxe9pq0 9rBAah8G7jAR9 A7ZjTRCqiisixVTfiItiS P1iYYWvrzchKBZbdL9yUB TzK3c9UeDdBsO4JPgoG7T kcyJ0FZJopDHh CUxoXAR2J67ul1M0MOOmD SLtUMP3aQJ6hV5qrLmtzc ogbGVmdDsgdmVydGljYWw gDCppN091HMLd kBmvWQPtzL1wCAMviKWba GviFE8uSHDkuftaUsjCAL JEPpujYUIVHFmVOT80OY8 5gGOmm5R2bED7 P6AlLVMqkfqvuccwmWE1Q JPhJTOgaI88hQGzNNbwYd 9fs4V5q771TDNaIAHveO3 7Zn8jpBuuMRZq bZQOjP6ldtfii6maeftnS iStBXCiTAw5SGi8PCIbxS yzCvVrELR8ApB6HTH7kCO ycL6miKnpygxy kW6gPcl+MDcvMTkvMjAwM zwvdGQ+ECVbKJN2rDloAZ ioYHIhuR8oMVPiU7i7PpK bRvL0XWctX1Av MZZsyiyoBv02xT7bGrZxN nH7GTvuD5EpjkG4TGCqmD NpUUmmEUB7Z82st6D5EPW hJOYiZAB1aFS1 lS8koCchoddfaNAkhJysc hWraLukXHrnXDqoD643IC EjbGldRrO5WLveRMXlOK2 1FL81nOUld0W3 qVF6Y1AxGQRfxyiqikztg RQ7QSAaTMRprW22hAJcQP pxBe1mr4M5k397NODiIWP zyY84Ea7daAlj BUDukNKRuL9isebta7sic gqpMmGsDNCePIv4XZo5VX SodXdxHgDfODO7PpW7RWR 4xXSsvV7fwNyr jqqjnL1dSda+TWFsZTwvd GQ+AHBfHYG2vUpyVGcsEA JtfS5yLFTaF9h6VyTeHgH 9HTiyJ4KbNRGe dryjYa73pR5yAjTwFuU2T AzfX0PoqtR3CQLoxVUtUC wxDZT8L95kr8G9VHImYOT qMND4jEK5fS8a bGlnbjogbGVmdDsgdmVyd JqpHLinHVkrW116LZOgtS bqEp87bQQqtYdqwpR1F9T kPjwvdHI+PC90 BFHwLO15lVPqmOIrm2ogj Ty2ZvXmTMCnCHP7bWcwHC wro1QgPLJsM93tdZBuv0J 6IGNvbGxhcHNl PtLtfAK2wE9vCIvqvfsyu 0ebhwpxXeffu0rvyg11rV 60L83tMKubJZIzFFOiTNX nHELfwOciae3d pZ5uLr2+DAXhdKY9eTW0s E5vRvZhPmD5XTaoN253Xg AuzXJuNdgbv6kvd9cwvPw 9IjIwJSIgdmFs uVebGRA3x6UeFc04S20yY HdpZHRoPSIyMCUiIHZhbG nujp0zuX6fNj6+RI8le4m gze35eJ37mGE+ VBUoKQD7rRqlNKxeBSVsr W7vXOgoAyI1MBNxMxUukO 92aKKiLIxaGk2olEzvgSo fTK4pADHlchca y346CoOod9fwOXDwxYGgZ XtpTAP4H71pu5Q9SPOpGX MwMAP9eTC6fD1jhHbdnkh gbGVmdDsgdmVy cLrsYNruMRymX016EYSqt JjnAjYxmINlE8aypyVVNX 1lOjwvdGQ+DROhOPL6yNf bHJzkYQRlcL9x UZSlO4m0SyDnUyN8RRrdS 2DydtM7EDPifIKdBTOimT CXoT3qtfqfa1yjbljoLdC tENVtIHc3DOh1 XQFqdHjrFmAwYDC1MiB9W KU3oALhxD9tbLshpfoqkH 9wOyc+RklOOjwvdGQ+PHR fHLC9cHqeTAii UOWqkB3bNEIwV0f7ZoOpS zZ5VNmiY6WrbaF3BANjcU SrKYAjkJJRuO2rapnqf9k vcjogIzAwMDAw ZSe8WXb7CMCvcGioVgDeF HA1BxK5UWY4aPSzvL6qkG usjycalT4vIxn+TVJOOjw vdGQ+PHRkIHN0 iEunWHmcLGRadB3rFBWkB 0w4BdDqLnV5SYpfQ6Opeo H0UYTloLJyCPFsuDTCpJ9 nxidep3pwcycj LwYhDGBeZXm8HLn8VVMjr HkwSuNjROS6WwB7CQD0pM EdmS1yeOkkgwbvgY8uIbu +JEE5AWA1CO40 MZ98F9UqDeoolSYgjIW+P HRhYmxlIHdpZHRoPScxMD OcUeLdlCrsGR5kCd4hUMJ yLWNvbGxhcHNl OiBj (more content not included)... Normal [facility] RF Quanton 04-23-2022 Rheumatoid factor Qn [IU]/mL Invalid Interpretation Code <14.0 [facility] Comment on above: Result Comment: Perf ormed at: [facility] [address] [id number] PhD Missael Oneal Performed By: #### 2 974642, 8216508, 16827530, 97307386, 0174621, 94861202, 5131419, 34517767 #### [facility] [address] [place] [address] BMPon 04-19-2022 Anion gap [Moles/Vol] 12 mmol/L Normal 6-16 [facility] Comment on above: Performed By: #### 2 995475, 3088625, 31248272, 16343478, 8377469, 75373903, 6651825, 77507529 #### [facility] [address] [place] [address] Calcium [Mass/Vol] 9.7 mg/dL Normal 8.9-11.1 [facility] Comment on above: Performed By: #### 2 528049, 8913887, 81959680, 95691246, 7333326, 35624532, 5216003, 73915098 #### [facility] [address] [place] [address] Chloride [Moles/Vol] 99 mmol/L Low 101-111 [facility] Comment on above: Performed By: #### 2 967995, 6631882, 17098430, 83032249, 4312566, 15643133, 2256642, 55481500 #### [facility] [address] [place] [address] CO2 [Moles/Vol] 32 mmol/L High 21-31 [facility] Comment on above: Performed By: #### 2 977862, 0069263, 60638747, 73139998, 4212600, 35115238, 8466712, 24050873 #### [facility] [address] [place] [address] Creatinine [Mass/Vol] 0.8 mg/dL Normal 0.5-1.3 [facility] Comment on above: Performed By: #### 2 696267, 8352776, 55350595, 81283171, 5946551, 93603134, 9700100, 28491561 #### [facility] [address] [place] [address] Glucose [Mass/Vol] 92 mg/dL Normal 55-199 [facility] Comment on above: Result Comment: If t his glucose result represents a fasting glucose, interpretation should refer to the following reference range: 55-99 mg/dL Performed By: #### 2 003122, 6262288, 02381558, 56511048, 6200851, 65008628, 8136741, 07773377 #### [facility] [address] [place] [address] Potassium [Moles/Vol] 4.0 mmol/L Normal 3.5-5.3 [facility] Comment on above: Performed By: #### 2 602647, 6494765, 50476936, 87135060, 4225807, 73210296, 3904909, 92584916 #### [facility] [address] [place] [address] Sodium [Moles/Vol] 139 mmol/L Normal 135-145 [facility] Comment on above: Performed By: #### 2 651763, 7576883, 28849161, 90459592, 5152198, 71702764, 4631115, 72981774 #### [facility] [address] [place] [address] Urea nitrogen [Mass/Vol] 13 mg/dL Normal 5-21 [facility] Comment on above: Performed By: #### 2 733036, 4593663, 04496827, 30521463, 8177678, 69815301, 1629815, 53353729 #### [facility] [address] [place] [address] Urea nitrogen/Creatinine [Mass ratio] 16 No Units Normal 10-20 [facility] Comment on above: Performed By: #### 2 534122, 4043366, 23052995, 75367186, 8188644, 73694479, 5030667, 73436257 #### [facility] [address] [place] [address] CBC w/Indiceson 04-19-2022 Erythrocyte distribution width (RBC) [Ratio] 13.6 % Normal 10.9-14.2 [facility] Comment on above: Performed By: #### 2 843323, 2495072, 53285022, 93703011, 8485477, 61121324, 0990185, 77184791 #### [facility] [address] [place] [address] Hematocrit (Bld) [Volume fraction] 46.2 % Normal 37.7-49.0 [facility] Comment on above: Performed By: #### 2 468041, 7080746, 32845746, 78185459, 2525022, 86510322, 4863224, 21646418 #### [facility] [address] [place] [address] Hemoglobin (Bld) [Mass/Vol] 15.9 g/dL Normal 13.5-17.5 [facility] Comment on above: Performed By: #### 2 578954, 6316194, 05683114, 65108095, 5973961, 42543640, 2134047, 36655351 #### [facility] [address] [place] [address] MCH (RBC) [Entitic mass] 29.8 pg Normal 27.0-34.0 [facility] Comment on above: Performed By: #### 2 224115, 0212589, 05594837, 48116939, 5916304, 23255735, 8091897, 82240086 #### [facility] [address] [place] [address] MCHC (RBC) [Mass/Vol] 34.4 g/dL Normal 31.4-36.0 [facility] Comment on above: Performed By: #### 2 858624, 8858197, 55108606, 24741314, 1014030, 56411433, 5017131, 16536093 #### [facility] [address] [place] [address] MCV (RBC) [Entitic vol] 86.5 fL Normal 80.0-100.0 [facility] Comment on above: Performed By: #### 2 555801, 3558887, 26826670, 16141301, 9693946, 86199445, 9104062, 91131112 #### [facility] [address] [place] [address] Platelet mean volume (Bld) [Entitic vol] 8.6 fL Normal 6.4-10.8 [facility] Comment on above: Performed By: #### 2 643565, 2259593, 98852520, 84369601, 6640287, 72650635, 6772541, 45890589 #### [facility] [address] [place] [address] Platelets (Bld) [#/Vol] 245.0 E9/L Normal 150.0-500.0 [facility] Comment on above: Performed By: #### 2 628076, 9664613, 92208799, 58445444, 2835976, 70275851, 3255182, 59680376 #### [facility] [address] [place] [address] RBC (Bld) [#/Vol] 5.3 E12/L Normal 4.3-5.9 [facility] Comment on above: Performed By: #### 2 944530, 9973419, 15253900, 37550379, 2660003, 25072095, 0281909, 32284870 #### [facility] [address] [place] [address] WBC corrected for nucl RBC Auto (Bld) [#/Vol] 4.9 E9/L Normal 4.0-11.0 [facility] Comment on above: Performed By: #### 2 756499, 4612973, 63829628, 70039134, 9708791, 42243845, 5890118, 34711862 #### [facility] [address] [place] [address] CHEMISTRYOrdered By: SYSTEM SYSTEM on 04-19-2022 Anion [...] rate/Area] mL/min/1.73 m2 Normal >=59mL/min/ 1.73 m2 [facility] Chem S Glucose [Mass/Vol] 92 mg/dL Normal [...] 04-19-2022 CRP [Mass/Vol] 0.7 mg/dL Normal <=1.9 [facility] Comment on above: Performed By: #### 2 352930, 5485877, 05348306, 68166317, 3457656, 54568513, 7544286, 95263558 #### [facility] [address] [place] [address] Consent for Treatmenton Consent for Treatment [id number]#1 .00CD:127 Normal [facility] HEMATOLOGYOrdered By: Una Bhatti on 04-19-2022 Erythrocyte distribution width (RBC) [Ratio] 13.6 % Normal 10.9 - 14.2 % [facility] Hematocrit (Bld) [Volume fraction] 46.2 % Normal 37.7 - 49.0 % [facility] Hemoglobin (Bld) [Mass/Vol] 15.9 g/dL Normal 13.5 - 17.5 gm/dL [facility] MCH (RBC) [Entitic mass] 29.8 pg Normal 27.0 - 34.0 pg [facility] MCHC (RBC) [Mass/Vol] 34.4 g/dL Normal 31.4 - 36.0 gm/dL [facility] MCV (RBC) [Entitic vol] 86.5 fL Normal 80.0 - 100.0 fL [facility] Platelet mean volume (Bld) [Entitic vol] 8.6 fL Normal 6.4 - 10.8 fL [facility] Platelets (Bld) [#/Vol] 245.0 E9/L Normal 150. 0 - 500.0 E9/L [facility] RBC (Bld) [#/Vol] 5.3 E12/L Normal 4.3 - 5.9 E12/L [facility] Sed Rate Automated 6 mm/h Normal 0 - 19 mm/hr [facility] WBC corrected for nucl RBC Auto (Bld) [#/Vol] 4.9 E9/L Normal 4.0 - 11.0 E9/L [facility] Physician Orderon 04-19-2022 Physician Order [id number]# 1.00CD:127 Normal [facility] Sed Rate Automatedon 023 Sed Rate Automated 6 mm/hr Normal 0-19 [facility] Comment on above: Performed By: #### 2 140337, 4455802, 10411901, 91296124, 6292564, 23520516, 5455405, 25350505 #### [facility] [address] [place] [address] Uric Acidon 04-19-2022 Urate [Mass/Vol] 5.1 mg/dL Normal 2.2-7.4 [facility] Comment on above: Performed By: #### 2 272914, 1320899, 04703686, 46162046, 2985029, 32204744, 9002680, 41777748 #### [facility] [address] [place] [address] eGFRon 04-19-2022 GFR/1.73 sq M.predicted among blacks MDRD (S/P/Bld) [Vol rate/Area] mL/min/{1.73_m2} Normal >=59 [facility] Comment on above: Order Comment: Order added by Discern Expert. Result Comment: eGFR is race adjusted. AA=. Performed By: #### 2 741625, 3582952, 87361480, 99241338, 2652637, 61753362, 6859893, 26572090 #### [facility] [address] [place] [address] GFR/1.73 sq M.predicted among non-blacks MDRD (S/P/Bld) [Vol rate/Area] mL/min/{1.73_m2} Normal >=59 [facility] Comment on above: Order Comment: Order added by Discern Expert. Result Comment: Microelectronics Engineer anni kidney disease could be indicated at eGFR's of less than 60 mL/min/1.73m2. Kidney failure is indicated at less than 15 mL/min/1.73m2. Performed By: #### 2 890004, 6319667, 13188183, 47458550, 7380530, 78453183, 9241820, 38153572 #### [facility] [address] [place] [address] ACETAMINOPHENon 01-28-2022 Acetaminophen [Mass/Vol] ug/mL Critically low 10.0-30.0 [facility] Comment on above: Performed By: #### E TH, SALYC, ACET #### [facility] [address] [place] [address] Dr. Annabella Lara CBC AUTO DIFFon 01-28-2022 BASO # 0.0 103/ul Normal 0.0-0.1 [facility] Comment on above: Performed By: #### C BC #### [facility] [address] [place] [address] Dr. Annabella Lara Basophils/100 WBC (Bld) 0.3 % Normal 0.2-2.0 [facility] Comment on above: Performed By: #### C BC #### [facility] [address] [place] [address] Dr. Annabella Lara EO # 0.1 103/ul Normal 0.0-0.7 [facility] Comment on above: Performed By: #### C BC #### [facility] [address] [place] [address] Dr. Annabella Lara Eosinophils/100 WBC (Bld) 2.0 % Normal 0.9-7.0 [facility] Comment on above: Performed By: #### C BC #### [facility] [address] [place] [address] Dr. Annabella Lara Erythrocyte distribution width (RBC) [Ratio] 12.8 % Normal 11.0-15.0 [facility] Comment on above: Performed By: #### C BC #### [facility] [address] [place] [address] Dr. Annabella Lara Hematocrit (Bld) [Volume fraction] 46.9 % Normal 42.0-54.0 [facility] Comment on above: Performed By: #### C BC #### [facility] [address] [place] [address] Dr. Annabella Lara Hemoglobin (Bld) [Mass/Vol] 16.1 g/dL Normal 14.0-18.0 [facility] Comment on above: Performed By: #### C BC #### [facility] [address] [place] [address] Dr. Annabella Lara IG # 0.01 10e3/ul Normal 0.00-0.03 [facility] Comment on above: Performed By: #### C BC #### [facility] [address] [place] [address] Dr. Annabella Lara IG % 0.1 % Normal 0.0-0.5 [facility] Comment on above: Performed By: #### C BC #### [facility] [address] [place] [address] Dr. Annabella Lara LYMPH # 1.2 103/ul Normal 1.2-3.8 [facility] Comment on above: Performed By: #### C BC #### [facility] [address] [place] [address] Dr. Annabella Lara Lymphocytes/100 WBC (Bld) 17.3 % Critically low 20.5-60.0 [facility] Comment on above: Performed By: #### C BC #### [facility] [address] [place] [address] Dr. Annabella Lara MANUAL DIFF REQ NO Normal [facility] Comment on above: Performed By: #### C BC #### [facility] [address] [place] [address] Dr. Annabella Lara MCH (RBC) [Entitic mass] 29.1 pg Normal 25.9-34.0 [facility] Comment on above: Performed By: #### C BC #### [facility] [address] [place] [address] Dr. Annabella Lara MCHC (RBC) [Mass/Vol] 34.3 g/dL Normal 29.9-35.2 [facility] Comment on above: Performed By: #### C BC #### [facility] [address] [place] [address] Dr. Annabella Lara MCV (RBC) [Entitic vol] 84.8 fL Normal 80.0-94.0 [facility] Comment on above: Performed By: #### C BC #### [facility] [address] [place] [address] Dr. Annabella Lara MONO # 0.5 103/ul Normal 0.3-0.8 [facility] Comment on above: Performed By: #### C BC #### [facility] [address] [place] [address] Dr. Annabella Lara Monocytes/100 WBC (Bld) 6.4 % Normal 1.7-12.0 [facility] Comment on above: Performed By: #### C BC #### [facility] [address] [place] [address] Dr. Annabella Lara NEUT # 5.2 103/ul Normal 1.4-6.5 [facility] Comment on above: Performed By: #### C BC #### [facility] [address] [place] [address] Dr. Annabella Lara Neutrophils/100 WBC (Bld) 73.9 % Normal 43.0-75.0 [facility] Comment on above: Performed By: #### C BC #### [facility] [address] [place] [address] Dr. Annabella Lara Platelet mean volume (Bld) [Entitic vol] 10.7 fL Normal 9.5-13.5 [facility] Comment on above: Performed By: #### C BC #### [facility] [id number] [address] Annabella Lara PLT 179 103/ul Normal 150-450 [facility] Comment on above: Performed By: #### C BC #### [facility] [id number] [address] Annabella Lara RBC 5.53 106/ul Normal 4.70-6.10 [facility] Comment on above: Performed By: #### C BC #### [facility] [id number] [address] Annabella Lara WBC 7.0 103/ul Normal 4.0-11.0 [facility] Comment on above: Performed By: #### C BC #### [facility] [address] [address] [address] Annabella Lara Covid-19 PCR ([facility])on 01-16 SARS-CoV-2 (COVID-19) RNA KATY+probe Ql (Unsp spec) Not detected Normal NOT DETECTED [facility] Comment on above: Result Comment: When [...] for this test is supported by the [employer] of [employer]'s declaration that [...] be used). Performed By: #### C VDTBH ####[facility] [id number] [id number] Annabella Lara DRUG SCREEN RAPID (URINE)on 01-28-2022 AMP Negative Normal NEGATIVE [facility] Comment on above: Performed By: #### D RUGRPD ####[facility] [id number] [address]Dr. Ngozigenna Lara BAR Negative Normal NEGATIVE [facility] Comment on above: Performed By: #### D RUGRPD ####[facility] [address] [address]Dr. Annabella Lara BUP Negative Normal NEGATIVE [facility] Comment on above: Performed By: #### D RUGRPD ####[facility] [address] [place], [place] [address]Dr. Annabella Lara BZO Negative Normal NEGATIVE [facility] Comment on above: Performed By: #### D RUGRPD ####[facility] [id number] [place], [place] [address]Dr. Annabella Lara DEQUAN Negative Normal NEGATIVE [facility] Comment on above: Performed By: #### D RUGRPD ####[facility] [address] [place], [place] [address]Dr. Annabella Lara CUT-OFFS SEE BELOW Normal [facility] Comment on above: Result Comment: AMP (Amphetamine): 500ng/mL, BAR (Barbituates): 200 ng/mL, BZO (Benzodiazepines): 150 ng/mL, BUP (Buprenorphine): 10 ng/mL, DEQUAN (Cocaine): 150 ng/mL, mAMP (Methamphetamine): 500 ng/mL, MTD (Methadone): 200 ng/mL, OPI (Opiates): 100 ng/mL, OXY (Oxycodone): 100 ng/mL, PCP (Phencyclidine): 25 ng/mL, PPX (Propoxyphene): 300 ng/mL, THC (Cannabinoids): 50 ng/mL, TCA (Trycyclic Antidepressants): 300 ng/mL Performed By: #### D RUGRPD ####[facility] [address] [place], [place] [address]Dr. Annabella Lara DRUG CUT HEADER DRUG CLASS TEST SYSTEM CUT-OFF CONCENTRATIONS ARE FOLLOWS: Normal [facility] Comment on above: Performed By: #### D RUGRPD ####[facility] [address] [id number]. Annabella Lara mAMP Negative Normal NEGATIVE [facility] Comment on above: Performed By: #### D RUGRPD ####[facility] [address] [id number]. Annabella Lara MTD Negative Normal NEGATIVE [facility] Comment on above: Performed By: #### D RUGRPD ####[facility] [address] [place] [address]Dr. Yigenna Lara OPI Negative Normal NEGATIVE [facility] Comment on above: Performed By: #### D RUGRPD ####[facility] [address] [place] [address]Dr. Annabella Lara OXY Negative Normal NEGATIVE [facility] Comment on above: Performed By: #### D RUGRPD ####[facility] [address] [place] [address]Dr. Annabella Lara PCP Negative Normal NEGATIVE [facility] Comment on above: Performed By: #### D RUGRPD ####[facility] [address] [place] [address]Dr. Annabella Lara PPX Negative Normal NEGATIVE [facility] Comment on above: Performed By: #### D RUGRPD ####[facility] [address] [place] [address]Dr. Annabella Lara TCA Negative Normal NEGATIVE [facility] Comment on above: Performed By: #### D RUGRPD ####[facility] [address] [place] [address]Dr. Annabella Lara THC Positive Abnormal NEGATIVE [facility] Comment on above: Performed By: #### D RUGRPD ####[facility] [address] [place] [address]Dr. Annabella Lara ETHANOL (BLD ALC)on 01-29-20 22 ALC NOTE NOTE: 80 mg/dl is th e legal limit for a blood alcohol level Normal [facility] Comment on above: Performed By: #### E TH, SALYC, ACET #### [facility] [address] [place] [address] Dr. Annabella Lara Ethanol [Mass/Vol] mg/dL Normal [facility] Comment on above: Performed By: #### E ANDRES GORDON ACET #### [facility] [address] [place] [address] Dr. Annabella Lara PROF 14(COMP METB)on 022 Albumin [Mass/Vol] 4.2 g/dL Normal 3.4-5.0 [facility] Comment on above: Performed By: #### C MP #### [facility] [address] [place] [address] Dr. Annabella Lara Albumin/Globulin [Mass ratio] 1.0 {ratio} Normal [facility] Comment on above: Performed By: #### C MP #### [facility] [address] [place] [address] Dr. Annabella Lara ALP [Catalytic activity/Vol] 82 U/L Normal 46-116 [facility] Comment on above: Performed By: #### C MP #### [facility] [address] [place] [address] Dr. Annabella Lara ALT [Catalytic activity/Vol] 31 U/L Normal 16-63 [facility] Comment on above: Performed By: #### C MP #### [facility] [address] [place] [address] Dr. Annabella Lara Anion gap [Moles/Vol] 6.9 mmol/L Normal [facility] Comment on above: Performed By: #### C MP #### [facility] [address] [place] [address] Dr. Annabella Lara AST [Catalytic activity/Vol] 24 U/L Normal 15-37 [facility] Comment on above: Performed By: #### C MP #### [facility] [address] [place] [address] Dr. Annabella Lara Bilirubin [Mass/Vol] 0.2 mg/dL Normal 0.2-1.0 [facility] Comment on above: Performed By: #### C MP #### [facility] [address] [place] [address] Dr. Annabella Lara Calcium [Mass/Vol] 9.2 mg/dL Normal 8.5-10.1 [facility] Comment on above: Performed By: #### C MP #### [facility] [address] [place] [address] Dr. Annabella Lara Chloride [Moles/Vol] 103 mmol/L Normal 98-107 [facility] Comment on above: Performed By: #### C MP #### [facility] [address] [place] [address] Dr. Annabella Lara CO2 [Moles/Vol] 30.5 mmol/L Normal 21.0-32.0 [facility] Comment on above: Performed By: #### C MP #### [facility] [address] [place] [address] Dr. Annabella Lara Creatinine [Mass/Vol] 0.80 mg/dL Normal 0.70-1.30 [facility] Comment on above: Performed By: #### C MP #### [facility] [address] [place] [address] Dr. Annabella Lara EGFR-AF SERBIAN >60 Normal >=60 [facility] Comment on above: Performed By: #### C MP #### [facility] [address] [place] [address] Dr. Annabella Lara EGFR-NON AF SERBIAN >60 Normal >=60 [facility] Comment on above: Performed By: #### C MP #### [facility] [address] [place] [address] Dr. Annabella Lara Globulin (S) [Mass/Vol] 4.0 g/dL Normal [facility] Comment on above: Performed By: #### C MP #### [facility] [address] [place] [address] Dr. Annabella Lara Glucose [Mass/Vol] 84 mg/dL Normal 74-106 [facility] Comment on above: Performed By: #### C MP #### [facility] [address] [place] [address] Dr. Annabella Lara Potassium [Moles/Vol] 4.4 mmol/L Normal 3.5-5.1 [facility] Comment on above: Performed By: #### C MP #### [facility] [address] [address] [address] Annabella Lara Protein [Mass/Vol] 8.2 g/dL Normal 6.4-8.2 [facility] Comment on above: Performed By: #### C MP #### [facility] [address] [address] [address] Annabella Lara Sodium [Moles/Vol] 136 mmol/L Normal 136-145 [facility] Comment on above: Performed By: #### C MP #### [facility] [address] [address] [address] Annabella Lara Urea nitrogen [Mass/Vol] 12.0 mg/dL Normal 6.4-19.3 [facility] Comment on above: Performed By: #### C MP #### [facility] [address] [address] [address] Annabella Lara Urea nitrogen/Creatinine [Mass ratio] 15.0 mg/mg Normal [facility] Comment on above: Performed By: #### C MP #### [facility] [address] [address] [address] Annabella Lara SALICYLATEon 01-28-2022 SALICYLATE <2.8 Normal <=19.9 [facility] Comment on above: Performed By: #### E TH, SALYC, ACET #### [facility] [address] [address] [address] Annabella Lara Vital Signs Date Time Vital Sign Value Performing Clinician Facility 09-25-2024 13:28-0400 Diastolic blood pressure 88 mm[Hg] [facility] 09-25-2024 13:28-0400 Heart rate 68 /min [facility] 09-25-2024 13:28-0400 Respiratory rate 12 /min [facility] 09-25-2024 13:28-0400 Systolic blood pressure 138 mm[Hg] [facility] 09-02-2024 08:45-0400 Diastolic blood pressure 70 mm[Hg] [facility] 09-02-2024 08:45-0400 Heart rate 72 /min [facility] 09-02-2024 08:45-0400 Respiratory rate 12 /min [facility] 09-02-2024 08:45-0400 Systolic blood pressure 121 mm[Hg] [facility] 09-01-2024 13:25-0400 Diastolic blood pressure 67 mm[Hg] [facility] 09-01-2024 13:25-0400 Heart rate 72 /min [facility] 09-01-2024 13:25-0400 Respiratory rate 12 /min [facility] 09-01-2024 13:25-0400 Systolic blood pressure 106 mm[Hg] [facility] 09-01-2024 09:06-0400 Diastolic blood pressure 80 mm[Hg] [facility] 09-01-2024 09:06-0400 Heart rate 73 /min [facility] 09-01-2024 09:06-0400 Respiratory rate 12 /min [facility] 09-01-2024 09:06-0400 Systolic blood pressure 118 mm[Hg] [facility] 06-03-2024 10:55-0400 Body height 170.2 cm Ian Iqbal MD Work Phone: [facility] 06-03-2024 10:55-0400 Body mass index (BMI) [Ratio] 21.93 kg/m2 Ian Iqbal MD Work Phone: [facility] 06-03-2024 10:55-0400 Body weight 63.5 kg Ian Iqbal MD Work Phone: [facility] 06-03-2024 10:55-0400 Diastolic blood pressure 56 mm[Hg] Ian Iqbal MD Work Phone: [facility] 06-03-2024 10:55-0400 Heart rate 76 /min Ian Iqbal MD Work Phone: [facility] 06-03-2024 10:55-0400 Respiratory rate 20 /min Ian Iqbal MD Work Phone: [facility] 06-03-2024 10:55-0400 Systolic blood pressure 104 mm[Hg] Ian Iqbal MD Work Phone: [facility] 05-07-2024 10:21-0500 Body height 165.1 cm Kimmie Gillmor SYSTEM ARCHIVE ANALYST Work Phone: [facility] 05-07-2024 10:21-0500 Body mass index (BMI) [Ratio] 24.3 kg/m2 Kimmie Gillmor SYSTEM ARCHIVE ANALYST Work Phone: [facility] 05-07-2024 10:21-0500 Body weight 66.22 kg Kimmie Gillmor SYSTEM ARCHIVE ANALYST Work Phone: [facility] 05-07-2024 10:21-0500 Diastolic blood pressure 70 mm[Hg] Kimmie Gillmor SYSTEM ARCHIVE ANALYST Work Phone: [facility] 05-07-2024 10:21-0500 Heart rate 69 /min Kimmie Gillmor SYSTEM ARCHIVE ANALYST Work Phone: [facility] 05-07-2024 10:21-0500 SaO2% (BldA) [Mass fraction] 97 % Kimmie Gillmor SYSTEM ARCHIVE ANALYST Work Phone: [facility] 05-07-2024 10:21-0500 Systolic blood pressure 122 mm[Hg] Kimmie Gillmor SYSTEM ARCHIVE ANALYST Work Phone: [facility] 03-30-2024 13:18-0500 Diastolic blood pressure 59 mm[Hg] Kimmie Gillmor SYSTEM ARCHIVE ANALYST Work Phone: [facility] 03-30-2024 13:18-0500 Heart rate 71 /min Kimmie Gillmor SYSTEM ARCHIVE ANALYST Work Phone: [facility] 03-30-2024 13:18-0500 Systolic blood pressure 112 mm[Hg] Kimmie Gillmor SYSTEM ARCHIVE ANALYST Work Phone: [facility] 01-16-2024 10:52-0400 Diastolic blood pressure 74 mm[Hg] Kimmie Gillmor SYSTEM ARCHIVE ANALYST Work Phone: [facility] 01-16-2024 10:52-0400 Heart rate 80 /min Kimmie Gillmor SYSTEM ARCHIVE ANALYST Work Phone: [facility] 01-16-2024 10:52-0400 SaO2% (BldA) [Mass fraction] 97 % Kimmie Gillmor SYSTEM ARCHIVE ANALYST Work Phone: [facility] 01-16-2024 10:52-0400 Systolic blood pressure 138 mm[Hg] Kimmie Gillmor SYSTEM ARCHIVE ANALYST Work Phone: [facility] 01-06-2024 13:00-0400 Body height 165.1 cm Kimmie Gillmor SYSTEM ARCHIVE ANALYST Work Phone: [facility] 01-06-2024 13:00-0400 Body mass index (BMI) [Ratio] 23.8 kg/m2 Kimmie Gillmor SYSTEM ARCHIVE ANALYST Work Phone: [facility] 01-06-2024 13:00-0400 Body weight 64.86 kg Kimmie Gillmor SYSTEM ARCHIVE ANALYST Work Phone: [facility] 01-06-2024 13:00-0400 Diastolic blood pressure 70 mm[Hg] Kimmie Gillmor SYSTEM ARCHIVE ANALYST Work Phone: [facility] 01-06-2024 13:00-0400 Heart rate 67 /min Kimmie Gillmor SYSTEM ARCHIVE ANALYST Work Phone: [facility] 01-06-2024 13:00-0400 SaO2% (BldA) [Mass fraction] 97 % Kimmie Gillmor SYSTEM ARCHIVE ANALYST Work Phone: [facility] 01-06-2024 13:00-0400 Systolic blood pressure 132 mm[Hg] Kimmie Gillmor SYSTEM ARCHIVE ANALYST Work Phone: [facility] 12-16-2023 13:02-0400 Body height 165.1 cm [facility] Work Phone: [facility] 12-16-2023 13:02-0400 Body mass index (BMI) [Ratio] 22.63 kg/m2 [facility] Work Phone: [facility] 12-16-2023 13:02-0400 Body weight 61.69 kg [facility] Work Phone: [facility] 11-15-2023 10:36-0400 Body height 165.1 cm [facility] Work Phone: [facility] 11-15-2023 10:36-0400 Body mass index (BMI) [Ratio] 22.63 kg/m2 [facility] Work Phone: [facility] 11-15-2023 10:36-0400 Body weight 61.69 kg [facility] Work Phone: [facility] 11-12-2023 09:22-0400 Body height 165.1 cm Kimmie Torresr SYSTEM ARCHIVE ANALYST Work Phone: [facility] 11-12-2023 09:22-0400 Body mass index (BMI) [Ratio] 22.63 kg/m2 Kimmie Gillmor SYSTEM ARCHIVE ANALYST Work Phone: [facility] 11-12-2023 09:22-0400 Body weight 61.69 kg Kimmie Gillmor SYSTEM ARCHIVE ANALYST Work Phone: [facility] 11-12-2023 09:22-0400 Diastolic blood pressure 73 mm[Hg] Kimmie Gillmor SYSTEM ARCHIVE ANALYST Work Phone: [facility] 11-12-2023 09:22-0400 Heart rate 69 /min Kimmie Jazzmor SYSTEM ARCHIVE ANALYST Work Phone: [facility] 11-12-2023 09:22-0400 Systolic blood pressure 121 mm[Hg] Kimmie Gillmor SYSTEM ARCHIVE ANALYST Work Phone: [facility] 07-03-2023 11:06-0400 Body height 170.2 cm Ellen Verhoff PA-C Work Phone: [facility] 07-03-2023 11:06-0400 Body mass index (BMI) [Ratio] 21.93 kg/m2 Ellen Verhoff PA-C Work Phone: [facility] 07-03-2023 11:06-0400 Body weight 63.5 kg Ellen Verhoff PA-C Work Phone: [facility] [employer] [facility] 07-03-2023 11:06-0400 Diastolic blood pressure 75 mm[Hg] Ellen Verhoff PA-C Work Phone: [facility] [employer] [facility] 07-03-2023 11:06-0400 Heart rate 75 /min Ellen Verhoff PA-C Work Phone: [facility] 07-03-2023 11:06-0400 SaO2% (BldA) [Mass fraction] 98 % Ellen Verhoff PA-C Work Phone: [facility] 07-03-2023 11:06-0400 Systolic blood pressure 110 mm[Hg] Ellen Verhoff PA-C Work Phone: [facility] 03-13-2023 07:30-0500 Body temperature 98.2 [degF] STUDENT SERVICES COUNSELOR-BC Darin Shammo Work Phone: [facility] 03-13-2023 07:30-0500 Diastolic blood pressure 73 mm[Hg] STUDENT SERVICES COUNSELOR-BC Darin Shammo Work Phone: [facility] 03-13-2023 07:30-0500 Heart rate 87 /min STUDENT SERVICES COUNSELOR-BC Darin Shammo Work Phone: [facility] 03-13-2023 07:30-0500 Respiratory rate 16 /min STUDENT SERVICES COUNSELOR-BC Darin Shammo Work Phone: [facility] 03-13-2023 07:30-0500 SaO2% (BldA) [Mass fraction] 97 % STUDENT SERVICES COUNSELOR-BC Darin Shammo Work Phone: [facility] 03-13-2023 07:30-0500 Systolic blood pressure 104 mm[Hg] STUDENT SERVICES COUNSELOR-BC Darin Shammo Work Phone: [facility] 03-11-2023 08:53-0500 Body weight 21.7 kg STUDENT SERVICES COUNSELOR-BC Darin Shammo Work Phone: [facility] 03-10-2023 10:39-0500 Body height 172.72 cm STUDENT SERVICES COUNSELOR-BC Darin Shammo Work Phone: [facility] 2022 07:30-0400 Body temperature 97.4 [degF] STUDENT SERVICES COUNSELOR-BC Darin Shammo Work Phone: [facility] 2022 07:30-0400 Diastolic blood pressure 85 mm[Hg] STUDENT SERVICES COUNSELOR-BC Darin Shammo Work Phone: [facility] 2022 07:30-0400 Heart rate 114 /min STUDENT SERVICES COUNSELOR-BC Darin Shammo Work Phone: [facility] 2022 07:30-0400 SaO2% (BldA) [Mass fraction] 100 % STUDENT SERVICES COUNSELOR-BC Darin Shammo Work Phone: [facility] 2022 07:30-0400 Systolic blood pressure 126 mm[Hg] STUDENT SERVICES COUNSELOR-BC Darin Shammo Work Phone: [facility] 10-02-2022 20:12-0400 Respiratory rate 16 /min STUDENT SERVICES COUNSELOR-BC Darin Shammo Work Phone: [facility] 10-01-2022 15:18-0400 Body height 172.72 cm STUDENT SERVICES COUNSELOR-BC Darin Shammo Work Phone: [facility] 10-01-2022 09:00-0400 Body weight 70.76 kg STUDENT SERVICES COUNSELOR-BC Darin Shammo Work Phone: [facility] 08-05-2022 15:21-0400 Diastolic blood pressure 70 mm[Hg] STUDENT SERVICES COUNSELOR-BC Darin Shammo Work Phone: [facility] 08-05-2022 15:21-0400 Heart rate 79 /min STUDENT SERVICES COUNSELOR-BC Darin Shammo Work Phone: [facility] 08-05-2022 15:21-0400 Respiratory rate 16 /min STUDENT SERVICES COUNSELOR-BC Darin Shammo Work Phone: [facility] 08-05-2022 15:21-0400 SaO2% (BldA) [Mass fraction] 98 % STUDENT SERVICES COUNSELOR-BC Darin Shammo Work Phone: [facility] 08-05-2022 15:21-0400 Systolic blood pressure 111 mm[Hg] STUDENT SERVICES COUNSELOR-BC Darin Shammo Work Phone: [facility] 08-05-2022 07:30-0400 Body temperature 97.6 [degF] STUDENT SERVICES COUNSELOR-BC Darin Shammo Work Phone: [facility] 08-03-2022 12:02-0400 Body height 170.18 cm STUDENT SERVICES COUNSELOR-BC Darin Shammo Work Phone: [facility] 08-03-2022 12:02-0400 Body weight 72.57 kg STUDENT SERVICES COUNSELOR-BC Darin Shammo Work Phone: [facility] 06-13-2022 07:30-0400 Body temperature 98 [degF] STUDENT SERVICES COUNSELOR-BC Darin Shammo Work Phone: [facility] 06-13-2022 07:30-0400 Diastolic blood pressure 68 mm[Hg] STUDENT SERVICES COUNSELOR-BC Darin Shammo Work Phone: [facility] 06-13-2022 07:30-0400 Heart rate 76 /min STUDENT SERVICES COUNSELOR-BC Darin Shammo Work Phone: [facility] 06-13-2022 07:30-0400 Respiratory rate 18 /min STUDENT SERVICES COUNSELOR-BC Darin Shammo Work Phone: [facility] 06-13-2022 07:30-0400 SaO2% (BldA) [Mass fraction] 96 % STUDENT SERVICES COUNSELOR-BC Darin Shammo Work Phone: [facility] 06-13-2022 07:30-0400 Systolic blood pressure 112 mm[Hg] STUDENT SERVICES COUNSELOR-BC Darin Shammo Work Phone: [facility] 06-12-2022 20:00-0400 Body height 170.18 cm STUDENT SERVICES COUNSELOR- Darin Shammo Work Phone: [facility] 06-12-2022 20:00-0400 Body weight 68.94 kg STUDENT SERVICES COUNSELOR- Darin Shammo Work Phone: [facility] 05-22-2022 13:15-0500 Body height 170.2 cm Cherise Ramirez DMD, MD Work Phone: [employer] 05-22-2022 13:15-0500 Body mass index (BMI) [Ratio] 23.49 kg/m2 Cherise Ramirez DMD, MD Work Phone: [employer] 05-22-2022 13:15-0500 Body weight 68.04 kg Cherise Ramirez DMD, MD Work Phone: [facility] Encounters Encounter Date Encounter Type Care Provider Facility Start: 11-10-2024 End: 11-10-2024 Telephone encounter Tawanna Laurent PT [facility] Comment on above: re: CX of PT eval Start: 10-12-2024 End: 10-12-2024 ambulatory DYLAN LITTLE Facility:[facility] Start: 10-12-2024 End: 10-12-2024 Patient encounter procedure Dylan Little Therapist Work Phone: [facility] Comment on above: No-show for appointm ent (Primary Dx) Start: 10-12-2024 End: 10-12-2024 Telemedicine consultation with patient Dylan Little Therapist Work Phone: [facility] Start: 10-08-2024 End: 10-08-2024 Telephone encounter Kika Beasley [facility] Comment on above: per Referring provid er; PT Start: 09-25-2024 End: 09-25-2024 Patient encounter procedure Elizabeth Lucero [facility] Comment on above: Defective dental res toration (Primary Dx); Dental caries on pit and fissure surface penetrating into pulp Start: 09-02-2024 End: 09-02-2024 Patient encounter procedure Dago Holguin Genevieve JOHNSTONS Work Phone: [facility] Comment on above: Caries (Primary Dx); Encounter for dental examination Start: 09-02-2024 End: 09-02-2024 Patient encounter status Dago Holguin Genevieve DDS Work Phone: [facility] Work Phone: Start: 09-01-2024 End: 09-01-2024 Patient encounter procedure Elizabeth Nic [facility] Comment on above: Caries (Primary Dx) Start: 08-07-2024 End: 08-07-2024 ambulatory MANPREET KELLEY Facility:[facility] Start: 07-31-2024 End: 07-31-2024 Bamboo flowsheet Kika Brink [facility] Start: 07-31-2024 End: 07-31-2024 Bamboo flowsheet Kika Brink [facility] Start: 07-31-2024 End: 07-31-2024 ambulatory Kika Brink [facility] Comment on above: Rotator cuff impinge ment syndrome of right shoulder (Primary Dx); Shoulder joint hypermobility Start: 07-30-2024 End: 07-30-2024 Telephone encounter Ian Iqbal MD Work Phone: Neurology Comment on above: Orders Start: 07-29-2024 End: 07-29-2024 Bamboo flowsheet Kika Brink [facility] Start: 07-29-2024 End: 07-29-2024 Bamboo flowsheet Kika Brink [facility] Start: 07-29-2024 End: 07-29-2024 ambulatory Kika Brink [facility] Comment on above: Rotator cuff impinge ment syndrome of right shoulder (Primary Dx); Shoulder joint hypermobility Start: 07-27-2024 End: 07-27-2024 Bamboo flowsheet Kika Brink [facility] Start: 07-27-2024 End: 07-27-2024 Bamboo flowsheet Kika Brink [facility] Start: 07-27-2024 End: 07-27-2024 ambulatory Kika Beasley [facility] Comment on above: Rotator cuff impinge ment syndrome of right shoulder (Primary Dx); Shoulder joint hypermobility Start: 07-24-2024 End: 07-24-2024 Bamboo flowsheet Kika Brink [facility] Start: 07-24-2024 End: 07-24-2024 Bamboo flowsheet Kika Brink [facility] Start: 07-24-2024 End: 07-24-2024 ambulatory Kika Patrickink [facility] Comment on above: Rotator cuff impinge ment syndrome of right shoulder (Primary Dx); Shoulder joint hypermobility Start: 07-22-2024 End: 07-22-2024 Bamboo flowsheet Kika Brink [facility] Start: 07-22-2024 End: 07-22-2024 Bamboo flowsheet Kika Brink [facility] Start: 07-22-2024 End: 07-22-2024 ambulatory Kika Patrickink [facility] Comment on above: Rotator cuff impinge ment syndrome of right shoulder (Primary Dx); Shoulder joint hypermobility Start: 07-20-2024 End: 07-20-2024 Bamboo flowsheet Kika Brink [facility] Start: 07-20-2024 End: 07-20-2024 Bamboo flowsheet Kika Patrickink [facility] Start: 07-20-2024 End: 07-20-2024 ambulatory Kika Patrickink [facility] Comment on above: Rotator cuff impinge ment syndrome of right shoulder (Primary Dx); Shoulder joint hypermobility Start: 07-17-2024 End: 07-17-2024 ambulatory Mckinley Kacy [facility] Comment on above: Rotator cuff impinge ment syndrome of right shoulder (Primary Dx); Shoulder joint hypermobility Start: 07-14-2024 End: 07-14-2024 Bamboo flowsheet Kika Brink [facility] Start: 07-14-2024 End: 07-14-2024 Bamboo flowsheet Kika Brink [facility] Start: 07-14-2024 End: 07-14-2024 ambulatory Kika Brink [facility] Comment on above: Rotator cuff impinge ment syndrome of right shoulder (Primary Dx); Shoulder joint hypermobility Start: 06-30-2024 End: 07-13-2024 Telephone encounter Brian Seymour PT Work Phone: [facility] Comment on above: PT Auth received; fu Start: 06-12-2024 End: 06-12-2024 Bamboo flowsheet Kika Brink [facility] Start: 06-12-2024 End: 06-12-2024 Bamboo flowsheet Kika Brink [facility] Start: 06-12-2024 End: 06-12-2024 ambulatory Kika Brink [facility] Comment on above: Rotator cuff impinge ment syndrome of right shoulder (Primary Dx); Shoulder joint hypermobility Start: 06-11-2024 End: 06-15-2024 ambulatory UNKNOWN PROVIDER Facility:[facility] Start: 06-10-2024 End: 06-10-2024 Bamboo flowsheet Kika Brink [facility] Start: 06-10-2024 End: 06-10-2024 Bamboo flowsheet Kika Brink [facility] Start: 06-10-2024 End: 06-10-2024 ambulatory Kika Brink [facility] Comment on above: Rotator cuff impinge ment syndrome of right shoulder (Primary Dx); Shoulder joint hypermobility Start: 06-08-2024 End: 06-08-2024 ambulatory Kika Brink [facility] Comment on above: Rotator cuff impinge ment syndrome of right shoulder (Primary Dx); Shoulder joint hypermobility Start: 06-05-2024 End: 06-05-2024 ambulatory KIKA BRINK Not Available Start: 06-03-2024 End: 06-03-2024 ambulatory IAN IQBAL Facility:[facility] Start: 06-03-2024 End: 06-03-2024 Patient encounter procedure Ian Iqbal MD Work Phone: [facility] Comment on above: Pain in other joint (Primary Dx); Myalgia Start: 05-27-2024 End: 05-27-2024 ambulatory Kika Gale LINING BRUSHER [facility] Comment on above: Rotator cuff impinge ment syndrome of right shoulder (Primary Dx); Shoulder joint hypermobility Start: 05-25-2024 End: 05-25-2024 ambulatory KIKA BRCLAYTON Not Available Start: 05-21-2024 End: 05-21-2024 Bamboo flowsheet Mckinley Funk [facility] Start: 05-21-2024 End: 05-21-2024 Bamboo flowsheet Mckinley Funk [facility] Start: 05-21-2024 End: 05-21-2024 ambulatory Mckinley Funk [facility] Comment on above: Rotator cuff impinge ment syndrome of right shoulder (Primary Dx); Shoulder joint hypermobility Start: 05-18-2024 End: 05-19-2024 Telephone encounter Brian Seymour PT Work Phone: [facility] Comment on above: re: Auth received fo r PT; FU Start: 05-07-2024 End: 05-07-2024 Office outpatient visit 25 minutes Kimmie Luz SYSTEM ARCHIVE ANALYST Work Phone: [facility] Comment on above: [...] Start: 05-04-2024 End: 05-04-2024 Bamboo flowsheet Kika Beasley [facility] Start: 05-04-2024 End: 05-04-2024 Bamboo flowsheet Kika Brink [facility] Start: 05-04-2024 End: 05-04-2024 ambulatory Kika Brink [facility] Comment on above: Rotator cuff impinge ment syndrome of right shoulder (Primary Dx); Shoulder joint hypermobility Start: 04-29-2024 End: 04-29-2024 Bamboo flowsheet Kika Brink [facility] Start: 04-29-2024 End: 04-29-2024 Bamboo flowsheet Kika Brink [facility] Start: 04-29-2024 End: 04-29-2024 ambulatory Kika Brink [facility] Comment on above: Rotator cuff impinge ment syndrome of right shoulder (Primary Dx); Shoulder joint hypermobility Start: 04-27-2024 End: 04-27-2024 Bamboo flowsheet Kika Brink [facility] Start: 04-27-2024 End: 04-27-2024 Bamboo flowsheet Kika Brink [facility] Start: 04-27-2024 End: 04-27-2024 ambulatory Kika Brink [facility] Comment on above: Rotator cuff impinge ment syndrome of right shoulder (Primary Dx); Shoulder joint hypermobility Start: 04-24-2024 End: 04-24-2024 Bamboo flowsheet Kika Brink [facility] Start: 04-24-2024 End: 04-24-2024 Bamboo flowsheet Kika Brink [facility] Start: 04-24-2024 End: 04-24-2024 ambulatory KIKA BRINK Not Available Start: 04-22-2024 End: 04-22-2024 Bamboo [...] joint hypermobility Start: 04-20-2024 End: 04-20-2024 Bamboo flowsheet Brian Oneilton PT Work Phone: [facility] Start: 04-20-2024 End: 04-20-2024 Bamboo flowsheet Brian Tiny Oneilton PT Work Phone: [facility] Start: 04-20-2024 End: 04-20-2024 ambulatory Brian Tiny Oneilton PT Work Phone: [facility] Comment on above: Rotator cuff impinge ment syndrome of right shoulder (Primary Dx); Shoulder joint hypermobility Start: 04-16-2024 End: 04-16-2024 Telephone encounter Kika Beasley [facility] Comment on above: re: NS PT today Start: 04-14-2024 End: 04-14-2024 Bamboo flowsheet Brian Tiny Oneilton PT Work Phone: [facility] Start: 04-14-2024 End: 04-14-2024 Bamboo flowsheet Brian Seymour PT Work Phone: [facility] Start: 04-14-2024 End: 04-14-2024 ambulatory Brian Seymour PT Work Phone: [facility] Comment on above: Rotator cuff impinge ment syndrome of right shoulder Start: 04-09-2024 End: 04-13-2024 Patient encounter procedure Michaeldar Chavis DDS Work Phone: [facility] Start: 04-09-2024 End: 04-13-2024 ambulatory UNKNOWN PROVIDER Facility:[facility] Start: 04-06-2024 End: 04-06-2024 Bamboo flowspatti Leggett PA Work Phone: [facility] Start: 04-06-2024 End: 04-06-2024 Bamboo flowsheet Justus Leggett PA Work Phone: [facility] Start: 04-06-2024 End: 04-06-2024 ambulatory JUSTUS Fraire OLEKSANDR Not Available Start: 03-30-2024 End: 03-30-2024 Bamboo flowsheet Kimmie Schulzpeewee SYSTEM ARCHIVE ANALYST Work Phone: [facility] Start: 03-30-2024 End: 03-30-2024 Bamboo flowsheet Kimmie Luz SYSTEM ARCHIVE ANALYST Work Phone: [facility] Start: 03-30-2024 End: 03-30-2024 Patient encounter procedure Kimmie Luz SYSTEM ARCHIVE ANALYST Work Phone: [facility] Comment on above: Cervicalgia Start: 03-30-2024 End: 03-30-2024 ambulatory KIMMIE GILLPEEWEE Not Available Start: 03-17-2024 End: 03-17-2024 Telephone encounter To Be Assigned [facility] Comment on above: [place] Pre auth Start: 03-09-2024 End: 03-09-2024 Bamboo [...] 03-02-2024 End: 03-02-2024 Bamboo flowsheet Mckinley Funk [facility] Start: 03-02-2024 End: 03-02-2024 Bamboo flowsheet Mckinley Funk [facility] Start: 03-02-2024 End: 03-02-2024 ambulatory Mckinley Funk [facility] Comment on above: Rotator cuff impinge ment syndrome of right shoulder (Primary Dx); Shoulder joint hypermobility Start: 02-28-2024 End: 02-28-2024 Bamboo flowsheet Mckinley Funk [facility] Start: 02-28-2024 End: 02-28-2024 Bamboo flowsheet Mckinley Funk [facility] Start: 02-28-2024 End: 02-28-2024 ambulatory Mckinley Funk [facility] Comment on above: Rotator [...] hypermobility Start: 02-19-2024 End: 02-19-2024 Telephone encounter Josfe Palmer DDTorri Work Phone: [facility] Comment on above: [place] Prior Auth Start: 01-23-2024 ambulatory UNKNOWN PROVIDER Facili ty:[facility] Start: 01-23-2024 End: 01-23-2024 Patient encounter procedure Marlin John DDS Work Phone: [facility] Start: 01-16-2024 End: 01-16-2024 Bamboo flowsheet Kimmie Luz SYSTEM ARCHIVE ANALYST Work Phone: [facility] [place] [address] [facility] Start: 01-16-2024 End: 01-16-2024 Bamboo flowsheet Kimmie Luz SYSTEM ARCHIVE ANALYST Work Phone: [facility] [place] [address] Start: 01-16-2024 End: 01-16-2024 Clinical Support Kimmie Luz SYSTEM ARCHIVE ANALYST Work Phone: [facility] [place] [address] Comment on above: Myalgia (Primary Dx) Start: 01-16-2024 End: 01-16-2024 ambulatory KIMMIE SCHULZMOR Not Available Start: 01-08-2024 End: 01-08-2024 Clinisync Result Encounter Kimmie Torresr SYSTEM ARCHIVE ANALYST Work Phone: [facility] External Department Unsolicited Start: 01-08-2024 End: 01-08-2024 Clinisync Result Encounter Kimmie Schulzmor SYSTEM ARCHIVE ANALYST Work Phone: [facility] Unsolicited Start: 01-06-2024 End: 01-06-2024 Bamboo flowsheet Kimmie Gillmor SYSTEM ARCHIVE ANALYST [facility] Start: 01-06-2024 End: 01-06-2024 Bamboo flowsheet Kimmie Schulzmor SYSTEM ARCHIVE ANALYST [facility] Start: 01-06-2024 End: 01-06-2024 Office outpatient visit 25 minutes Kimmie Torresr SYSTEM ARCHIVE ANALYST Work Phone: [facility] Comment on above: Other chronic pain ( Primary Dx); Cervicalgia; Muscle spasm; Paresthesia of skin Start: 01-06-2024 End: 01-06-2024 ambulatory KIMMIE SCHULZMOR Not Available Start: 12-24-2023 End: 01-02-2024 Telephone encounter Brianpascual Seymour PT Work Phone: [facility] Comment on above: re: PT (Contacted [...] Laurent, PT.) Start: 12-16-2023 End: 12-16-2023 Bamboo flowsheet Justus Leggett PA Work Phone: [facility] Start: 12-16-2023 End: 12-16-2023 Bamboo flowsheet Justus GEORGES Work Phone: [facility] Start: 12-16-2023 End: 12-16-2023 Patient encounter procedure Justus GEORGES Work Phone: [facility] Comment on above: Rotator cuff impinge ment syndrome of right shoulder (Primary Dx); Shoulder joint hypermobility Start: 12-16-2023 End: 12-16-2023 ambulatory Brandon Ca Facility:[facility] Start: 12-06-2023 End: 12-06-2023 Bamboo flowsheet Mckinley Funk [facility] Start: 12-06-2023 End: 12-06-2023 Bamboo flowsheet Mckinley Funk [facility] Start: 12-06-2023 End: 12-06-2023 ambulatory Mckinley Funk [facility] Comment on above: Rotator cuff impinge ment syndrome of right shoulder (Primary Dx); Shoulder joint hypermobility Start: 11-29-2023 End: 11-29-2023 Bamboo flowsheet Mckinley Funk [facility] Start: 11-29-2023 End: 11-29-2023 Bamboo flowsheet Mckinley Funk [facility] Start: 11-29-2023 End: 11-29-2023 ambulatory Mckinley Funk [facility] Comment on above: Rotator [...] End: 11-15-2023 Patient encounter procedure Justus Leggett PA Work Phone: [facility] Comment on above: Rotator cuff impinge ment syndrome of right shoulder (Primary Dx); Shoulder joint hypermobility Start: 11-13-2023 ambulatory UNKNOWN PROVIDER Facili ty:[facility] Start: 11-12-2023 End: 11-12-2023 Bamboo flowsheet Kimmie Luz SYSTEM ARCHIVE ANALYST Work Phone: [facility] [address] Start: 11-12-2023 End: 11-12-2023 Bamboo flowsheet Kimmie Luz SYSTEM ARCHIVE ANALYST Work Phone: [facility] Start: 11-12-2023 End: 11-12-2023 ambulatory KIMMIE LUZ Not Available Start: 11-12-2023 End: 11-12-2023 Office outpatient visit 25 minutes Kimmie Luz SYSTEM ARCHIVE ANALYST Work Phone: [facility] Comment on above: Cervicalgia (Primary Dx); Paresthesia of skin; Chronic neck pain; Anesthesia of skin; Myalgia; Muscle spasm; TMJ dysfunction Start: 07-24-2023 End: 07-26-2023 ambulatory UNKNOWN PROVIDER Facility:[facility] Start: 07-24-2023 End: 07-26-2023 Patient encounter procedure Onur Davila DDS Work Phone: [facility] Start: 07-03-2023 End: 08-17-2023 ambulatory [facility] Start: 07-03-2023 End: 07-03-2023 ambulatory [facility] Start: 07-03-2023 End: 07-03-2023 Office outpatient new 45 minutes Ellen Paul PA-C Work Phone: [facility] Comment on above: Cervical radiculopat hy (Primary Dx); Cervical spine pain; Numbness of tongue Start: 05-31-2023 End: 06-03-2023 Patient encounter procedure Jerica Ozzyana luisa Nicholas DDS Other Phone: [facility] Start: 03-09-2023 End: 03-13-2023 Evaluation and management of inpatient STUDENT SERVICES COUNSELOR-BC Darin Montoya Work Phone: [facility] Work Phone: Start: 02-22-2023 End: 02-25-2023 Patient encounter procedure Onru Davila DDS Work Phone: [facility] Start: 02-06-2023 End: 02-11-2023 Patient encounter procedure Onur Davila DDS Work Phone: [facility] Start: 12-28-2022 Telephone encounter Alfonzo grant DDS Work Phone: [facility] Comment on above: Dental Start: 11-16-2022 End: 11-20-2022 Patient encounter procedure Alfonzo Kimbrougha DDS Work Phone: [facility] Start: 10-29-2022 End: 11-01-2022 Patient encounter procedure Alfonzo Kimbrougha DDS Work Phone: [facility] Comment on above: Poor oral hygiene (P rimary Dx) Start: 10-11-2022 End: 10-15-2022 Patient encounter procedure Javed Mendez DDS Work Phone: [facility] Start: 10-08-2022 Orders Only Erum rivera DDS Work Phone: [facility] Start: 10-07-2022 Letter encounter Erum Sheldon matthews DDS Work Phone: [facility] Start: 09-28-2022 End: 2022 Evaluation and management of inpatient STUDENT SERVICES COUNSELOR-BC Darin Shammo Work Phone: [facility] [place] [address] Work Phone: Start: 09-27-2022 End: 10-02-2022 Patient encounter procedure Alfonzo Nelsonmarinavonda DDS Work Phone: [facility] Start: 09-05-2022 End: 09-10-2022 Patient encounter procedure Erma Rosemary DDS Work Phone: [facility] Start: 08-03-2022 Registered Recurring STUDENT SERVICES COUNSELOR-BC Jane sergey Shammo Work Phone: [facility] Start: 08-03-2022 End: 08-05-2022 Evaluation and management of inpatient STUDENT SERVICES COUNSELOR-BC Darin Shammo Work Phone: [facility] [place] [address] Work Phone: Start: 07-16-2022 End: 07-18-2022 Patient encounter procedure Esther Menard DMD Work Phone: [facility] Start: 07-05-2022 End: 07-05-2022 Patient encounter procedure Erum Laboy DDS Work Phone: [facility] Comment on above: Arrived Start: 06-18-2022 End: 06-18-2022 Telemedicine consultation with patient Cherise Ramirez DMD, MD Work Phone: [facility] Comment on above: Myofascial pain (Asya ashley Dx) Start: 06-14-2022 End: 07-11-2022 ambulatory [facility] Start: 06-14-2022 End: 06-14-2022 Office outpatient new 45 minutes Erum Laboy DDS Work Phone: [facility] Comment on above: Myalgia of masticati on muscle (Primary Dx); Myalgia of muscle of neck; Arthralgia of right temporomandibular joint Start: 06-12-2022 End: 06-13-2022 Evaluation and management of inpatient STUDENT SERVICES COUNSELOR-BC Darin Shammo Work Phone: [facility] Work Phone: Start: 06-12-2022 End: 06-12-2022 ambulatory PA SUSY MCKEON . Facility:[facility] Start: 06-08-2022 Clinical Support Shantal Morales [facility] Start: 06-08-2022 End: 06-08-2022 Follow-up encounter Cherise Ramirez DMD, MD Work Phone: [facility] Start: 06-08-2022 End: 06-08-2022 Patient encounter procedure Cherise Ramirez DMD, MD Work Phone: [facility] Comment on above: Myofascial pain (Asya ashley Dx) Start: 06-05-2022 Telephone encounter Cherise gomes DMD, MD Work Phone: [facility] Comment on above: Urgent TMJ Symptoms Start: 06-04-2022 End: 06-05-2022 ambulatory DARIN SHAMMO Facility:[facility] Start: 06-04-2022 End: 06-04-2022 ambulatory DARIN SHAMMO Facility:[facility] Start: 05-28-2022 End: 05-28-[address] JUAN MADRIGAL Facility:[facility] Start: 05-22-2022 End: 05-22-2022 Patient encounter procedure Cherise Ramirez DMD, MD Work Phone: [facility] Comment on above: Myofascial pain (Asya ashley Dx) Start: 04-19-2022 End: 04-20-2022 ambulatory Chu Muñoz Facility[facility] Start: 04-19-2022 End: 04-19-2022 Patient encounter procedure Chu Muñoz [facility] Start: 01-28-2022 End: 01-28-2022 ambulatory PORTER HICKS Facility:[facility] Procedures Date Procedure Procedure Detail Performing Clinician Start: 09-25-2024 ASSESSMENT OF A PATIENT Marilu Treadwell BDS Work Phone: Start: 09-02-2024 14 L RESIN-BASED COM POSITE - 1 SURFACE, POSTERIOR Dago Vallejo DDS Work Phone: Start: 09-01-2024 End: 09-01-2024 2 CORE BUILDUP, INCLUDING ANY PINS WHEN REQUIRED Manpreet Dolangoyo DDS Work Phone: Start: 03-30-2024 Injection single/clinical abstractor trigger point 3/> muscles Kimmie Luz SYSTEM ARCHIVE ANALYST Work Phone: Start: 01-16-2024 [facility] AM[facility] TRIGGER POI NT INJECTION Kimmie Luz SYSTEM ARCHIVE ANALYST Work Phone: Start: 01-08-2024 ALL C REACTIVE PROTEIN Kimmie Luz SYSTEM ARCHIVE ANALYST Work Phone: Start: 01-08-2024 [facility] Kimmie hernandez SYSTEM ARCHIVE ANALYST Work Phone: Start: 05-22-2022 panoramic radiograph ic image Sam Enamorado DMD Work Phone: Plan of Treatment Date Care Activity Detail Author Start: 2052 Shingles (RZV) Vacci ne (1 of 2) Shingles (RZV) Vaccine (1 of 2) [facility] Start: 12-10-2024 DTaP,Tdap and Td Vaccines (7 - Td or Tdap) DTaP,Tdap and Td Vaccines (7 - Td or Tdap) [facility] Start: 11-21-2024 Dental Oral Exam Dental Oral Exam [facility] Start: 11-21-2024 Dental Prophylaxis Dental Prophylaxi s [facility] Start: 11-16-2024 Influenza [facility] Start: 09-14-2024 End: 09-14-2024 Clinical Support 09/14/2024 9:00 AM EDT Clinical Support [facility] ALARCON [address] [place] [phone] Kimmie Luz NP [address] [place] [facility] Start: 09-02-2024 End: 09-02-2024 Patient encounter procedure 09/02/2024 8:45 AM EDT [facility] [address] [place] [phone] Elizabeth Lucero Robert J, [place] [address] [place] [address] [facility] Start: 08-07-2024 End: 08-07-2024 Patient encounter procedure [facility] Draw Station Comment on above: Multiple labs on [facility] e 00[address] (CPT ) - HLA I LOW RESOLUTION ONE ANTIGEN EQUIVALENT EACH- is not covered by insurance. Do not proceed with that test Start: 08-07-2024 End: 08-07-2024 Patient encounter procedure 08/07/2024 10:30 AM EDT Office Visit Neurology Pain [address] [place] [address] [place] [address] [place] [address] Pain in other joint [M25.59] Neurology [facility] Comment on above: Pain in other joint [M25.59] Start: 07-31-2024 End: 07-31-2024 ambulatory 07/31/2024 11:30 AM EDT Treatment [facility] [address] [facility] [address] [place] [address] Kika Beasley, HUMA [facility] Start: 07-29-2024 End: 07-29-2024 ambulatory 07/29/2024 11:00 AM EDT Treatment [facility] [address] [facility] [address] [place] [address] Brian Seymour, PT [address] [facility] [address] [place] [address] [facility] Start: 07-27-2024 End: 07-27-2024 ambulatory 07/27/2024 11:30 AM EDT Treatment [facility] [address] [place] [address] [place] [address] Kika Beasley, LINING BRUSHER [facility] Start: 07-24-2024 End: 07-24-2024 ambulatory [facility] Start: 07-23-2024 End: 07-23-2024 ambulatory 07/23/2024 9:30 AM EDT Treatment [facility] [address] [place] [address] [place] [address] Kika Beasley LINING BRUSHER [facility] Start: 07-22-2024 End: 07-22-2024 ambulatory 07/22/2024 11:30 AM EDT Treatment [facility] [address] [place] [address] [place] [address] Kika Beasley LINING BRUSHER [facility] Start: 07-20-2024 End: 07-20-2024 ambulatory 07/20/2024 11:30 AM EDT Treatment [facility] [address] [place] [address] [place] [address] Kika Beasley LINING BRUSHER [facility] Start: 07-17-2024 End: 07-17-2024 ambulatory 07/17/2024 12:00 PM EDT Treatment [facility] [address] [place] [address] [place] [address] Mckinley Funk LINING BRUSHER [facility] Start: 07-14-2024 End: 07-14-2024 ambulatory 07/14/2024 12:30 PM EDT Treatment [facility] [address] [place] [address] [place] [address] Kika Beasley, LINING BRUSHER [facility] Start: 07-02-2024 Adult BMI Screening Adult BMI Screen ing [facility] Start: 07-02-2024 Tobacco Screening Tobacco Screening [facility] Start: 07-02-2024 End: 07-02-2024 Patient encounter procedure 07/02/2024 10:00 AM EDT Office Visit [facility] ALARCON [address] [place] [address] Kimmie Luz, MANISHA [address] [place] YESEN[place] ALARCON Start: 06-15-2024 End: 06-15-2024 ambulatory 06/15/2024 11:00 AM EDT Treatment [facility] [address] [place] [address] [place] [address] Brian Seymour, PT [address] [place] [address] [place] [address] [facility] Start: 06-12-2024 End: 06-12-2024 ambulatory 06/12/2024 11:30 AM EDT Treatment [facility] [address] [place] [address] [place] [address] Kika Beasley LINING BRUSHER [facility] Start: 06-10-2024 End: 06-10-2024 ambulatory 06/10/2024 11:30 AM EDT Treatment [facility] [address] [place] [address] [place] [address] Kika Beasley LINING BRUSHER [facility] Start: 06-08-2024 End: 06-08-2024 ambulatory 06/08/2024 11:30 AM EDT Treatment [facility] [address] [place] [address] [place] [address] Kika Beasley LINING BRUSHER [facility] Start: 06-05-2024 End: 06-05-2024 ambulatory 06/05/2024 11:30 AM EDT Treatment [facility] [address] [place] [address] [place] [address] Kika Beasley LINING BRUSHER [facility] Start: 06-03-2024 End: 09-02-2024 25-hydroxyvitamin D3 [Mass/volume] in Serum or Plasma VITAMIN D 25 HYDROXY Lab Routine Pain in other joint Myalgia Expected: 06/03/2024, Expires: 09/02/2024 [facility] Comment on above: Expected: 06/03/2024 , Expires: 09/02/2024 Start: 06-03-2024 End: 09-02-2024 C reactive protein [Mass/volume] in Serum or Plasma C-REACTIVE PROTEIN Lab Routine Pain in other joint Myalgia Expected: 06/03/2024, Expires: 09/02/2024 [facility] Comment on above: Expected: 06/03/2024 , Expires: 09/02/2024 Start: 06-03-2024 End: 09-02-2024 CBC panel - Blood by Automated count COMPLETE BLOOD COUNT Lab Routine Pain in other joint Myalgia Expected: 06/03/2024, Expires: 09/02/2024 [facility] Work Phone: Comment on above: Expected: 06/03/2024 , Expires: 09/02/2024 Start: 06-03-2024 End: 09-02-2024 Comprehensive metabolic 2000 panel - Serum or Plasma COMPREHENSIVE METABOLIC PANEL Lab Routine Pain in other joint Myalgia Expected: 06/03/2024, Expires: 09/02/2024 [facility] Comment on above: Expected: 06/03/2024 , Expires: 09/02/2024 Start: 06-03-2024 End: 09-02-2024 Erythrocyte sedimentation rate SEDIMENTATION RATE, WESTERGREN Lab Routine Pain in other joint Myalgia Expected: 06/03/2024, Expires: 09/02/2024 [facility] Comment on above: Expected: 06/03/2024 , Expires: 09/02/2024 Start: 06-03-2024 End: 09-02-2024 HLA-B27 PCR HLA-B27 PCR Lab Routine Pain in other joint Myalgia Expected: 06/03/2024, Expires: 09/02/2024 [facility] Comment on above: Expected: 06/03/2024 , Expires: 09/02/2024 Start: 06-03-2024 End: 09-02-2024 Nuclear Ab [Presence] in Serum by Immunoassay YESEINA BLOOD Lab Routine Pain in other joint Myalgia Expected: 06/03/2024, Expires: 09/02/2024 [facility] Comment on above: Expected: 06/03/2024 , Expires: 09/02/2024 Start: 06-03-2024 End: 09-02-2024 Rheumatoid factor [Units/volume] in Serum or Plasma RHEUMATOID FACTOR Lab Routine Pain in other joint Myalgia Expected: 06/03/2024, Expires: 09/02/2024 [facility] Comment on above: Expected: 06/03/2024 , Expires: 09/02/2024 Start: 06-03-2024 End: 06-03-2024 ambulatory 06/03/2024 11:00 AM EDT Treatment [facility] [address] [place] [address] [place] [address] Kika Beasley PTA [facility] Start: 06-01-2024 End: 06-01-2024 ambulatory 06/01/2024 11:00 AM EDT Treatment [facility] [address] [place] [address] [place] [address] Brian Seymour, PT [address] [place] [address] [place] [address] [facility] Start: 05-27-2024 End: 05-27-2024 ambulatory 05/27/2024 10:30 AM EDT Treatment [facility] [address] [facility] [address] [place] [address] Kika Beasley PTA [facility] Start: 05-25-2024 End: 05-25-2024 ambulatory 05/25/2024 11:30 AM EDT Treatment [facility] [address] [facility] [address] [place] [address] Kika Beasley PTA [facility] Start: 05-21-2024 End: 05-21-2024 ambulatory [facility] Comment on above: Arrived Start: 05-18-2024 End: 05-18-2024 Patient encounter procedure 05/18/2024 11:00 AM EST Office Visit [facility] [address] [place] [address] [place], Justus D, PA [address] [place] [place] [address] [facility] Start: 05-07-2024 End: 05-07-2024 Patient encounter procedure 05/07/2024 9:20 AM EST Office Visit YESENIA ALARCON [address] [place] [phone] Kimmie Luz NP [address] [place] YESENIA ALARCON Start: 05-06-2024 End: 05-06-2024 ambulatory 05/06/2024 10:30 AM EST Treatment [facility] [address] [facility] [address] [place] [address] Kika Beasley, LINING BRUSHER [facility] Start: 05-04-2024 End: 05-04-2024 ambulatory 05/04/2024 11:30 AM EST Treatment [facility] [address] [facility] [address] [place] [address] Kika Beasley LINING BRUSHER [facility] Start: 04-29-2024 End: 04-29-2024 ambulatory 04/29/2024 10:00 AM EST Treatment [facility] [address] [facility] [address] [place] [address] Kika Beasley, LINING BRUSHER [facility] Start: 04-27-2024 End: 04-27-2024 ambulatory 04/27/2024 10:00 AM EST Treatment [facility] [address] [facility] [address] [place] [address] Kika Beasley, LINING BRUSHER [facility] Start: 04-24-2024 End: 04-24-2024 ambulatory 04/24/2024 10:00 AM EST Treatment [facility] [address] [facility] [address] [place] [address] Kika Beasley, LINING BRUSHER [facility] Start: 04-22-2024 End: 04-22-2024 ambulatory [facility] Comment on above: Arrived Start: 04-20-2024 End: 04-20-2024 ambulatory 04/20/2024 11:00 AM EST Treatment [facility] [address] [place] [address] [place] [address] Brian Seymour, PT [address] [place] [address] [place] [address] [facility] Start: 04-16-2024 End: 04-16-2024 ambulatory 04/16/2024 10:00 AM EST Treatment [facility] [address] [place] [address] [place] [address] Kika Beasley, HUMA [facility] Start: 04-14-2024 End: 04-14-2024 ambulatory 04/14/2024 11:30 AM EST Treatment [facility] [address] [place] [address] [place] [address] Brian Seymour, PT [address] [place] [address] [place] [address] Rotator cuff impingement syndrome of right shoulder [facility] Comment on above: Rotator cuff impinge ment syndrome of right shoulder Start: 04-09-2024 End: 04-09-2024 Patient encounter procedure 04/09/2024 1:00 PM EST Procedure Visit [facility] [address] [place] [address] Michael Chavis DDS [address] [place] [address] [facility] Start: 04-06-2024 End: 04-06-2024 Patient encounter procedure [facility] Comment on above: Arrived Start: 03-30-2024 End: 03-30-2024 Patient encounter procedure 03/30/2024 1:00 PM EST Office Visit [facility] [address] [place] [phone] Kimmie Luz NP [address] [place] [address] Arrived [facility] Comment on above: Arrived Start: 03-16-2024 End: 03-16-2024 Patient encounter procedure 03/16/2024 11:00 AM EST Office Visit [facility] [address] [place] [phone] Justus Leggett PA [address] [place] [address] [facility] Start: 03-13-2024 End: 03-13-2024 ambulatory 03/13/2024 8:30 AM EST Treatment [facility] [address] [place] [address] [place] [id number] Kika Beasley PTA [facility] Start: 03-09-2024 End: 03-09-2024 ambulatory [facility] Comment on above: Arrived Start: 03-05-2024 End: 03-05-2024 ambulatory [facility] Start: 03-04-2024 End: 03-04-2024 Patient encounter procedure 03/04/2024 4:00 PM EST Office Visit [facility] [place] [address] [place] [address] Kimmie Luz NP [address] [place] [facility] [place] [address] [facility] Start: 03-02-2024 End: 03-02-2024 ambulatory 03/02/2024 9:00 AM EST Treatment [facility] [address] [place] [address] [place] [address] Mckinley Funk LINING BRUSHER [facility] Start: 02-28-2024 End: 02-28-2024 ambulatory 02/28/2024 10:30 AM EST Treatment [facility] [address] [place] [address] [place] [address] Mckinley Funk LINING BRUSHER [facility] Start: 02-26-2024 End: 02-26-2024 ambulatory 02/26/2024 9:00 AM EST Evaluation [facility] [address] [place] [address] [place] [address] Brian Seymour, PT [address] [place] [address] [place] [address] Rotator cuff impingement syndrome of right shoulder; Shoulder joint hypermobility [facility] Comment on above: Rotator cuff impinge ment syndrome of right shoulder; Shoulder joint hypermobility Start: 01-16-2024 End: 01-16-2024 Clinical Support 01/16/2024 10:40 AM EDT Clinical Support [facility] [place] [address] [place] [phone] Kimmie Luz, SYSTEM ARCHIVE ANALYST [address] [place], [place] Arrived [facility] [place] [address] [facility] Comment on above: Arrived Start: 01-13-2024 End: 01-13-2024 Clinical Support 01/13/2024 11:00 AM EDT Clinical Support [facility] [place] [address] [place] [phone] Kimmie Luz, SYSTEM ARCHIVE ANALYST [address] [place] [facility] [place] [address] Start: 01-08-2024 End: 01-08-2024 ambulatory 01/08/2024 10:00 AM EDT Treatment [facility] [address] [place] [address] [place] [address] Tawanna Laurent, PT [facility] Start: [...] Treatment [facility] [address] [facility] [address] [place] [address] Mckinley Funk, LINING BRUSHER [facility] Start: 12-10-2023 End: 12-10-2023 ambulatory 12/10/2023 12:30 PM EDT Treatment [facility] [address] [facility] [address] [place] [address] Tawanna Laurent, PT [facility] Start: 12-06-2023 End: 12-06-2023 ambulatory 12/06/2023 12:00 PM EDT Treatment [facility] [address] [facility] [address] [place] [address] Mckinley Funk, LINING BRUSHER [facility] Start: 12-04-2023 End: 12-04-2023 ambulatory 12/04/2023 12:00 PM EDT Treatment [facility] [address] [facility] [address] [place] [address] Mckinley Funk, LINING BRUSHER [facility] Start: 11-29-2023 End: 11-29-2023 ambulatory [facility] Comment on above: Arrived Start: 11-26-2023 End: 11-26-2023 ambulatory 11/26/2023 1:30 PM EDT Evaluation [facility] [address] [place] [phone] Tawanna Laurent, PT Rotator cuff impingement syndrome of right shoulder; Shoulder joint hypermobility [facility] Comment on above: Rotator cuff impinge ment syndrome of right shoulder; Shoulder joint hypermobility Start: 11-25-2023 End: 11-25-2023 Patient encounter procedure 11/25/2023 10:45 AM EDT Office Visit [facility] [address] [place] [address] Justus Leggett, PA [address] [place] [address] [facility] Start: 11-17-2023 COVID-19 Vaccine ( season) COVID-19 Vaccine ( season) [facility] Start: 11-17-2023 Influenza vaccination [facility] Start: 11-15-2023 End: 11-15-2023 Patient encounter procedure 11/15/2023 10:30 AM EDT Office Visit [facility] [address] [place] [address] Justus Leggett, PA [address] [place] [address] [facility] Start: 08-21-2023 End: 08-21-2023 Patient encounter procedure 08/21/2023 10:45 AM EDT Office Visit [facility] [address] [place] [phone] Ellen Paul, PA-C [address] [place] [address] [facility] Start: 08-19-2023 End: 08-19-2023 Patient encounter procedure 08/19/2023 8:30 AM EDT Procedure Visit [facility] [address] [place] [address] Onur Kapadia DDS [address] [place] [address] [facility] Start: 07-24-2023 End: 07-24-2023 Patient encounter procedure 07/24/2023 11:00 AM EDT Procedure Visit [facility] [address] [place] [address] Jose Levi DDS [address] [place] [address] [facility] Start: 07-17-2023 End: 07-17-2023 Patient encounter procedure 07/17/2023 1:00 PM EDT Appointment [facility] [address] [place] [phone] Cervical radiculopathy; Cervical spine pain [facility] Comment on above: Cervical radiculopat hy; Cervical spine pain Start: 07-03-2023 End: 07-02-2024 MR Brain WO and W contrast IV MR brain with and without contrast Imaging Routine Cervical radiculopathy Cervical spine pain Numbness of tongue Expected: 07/03/2023, Expires: 07/02/2024 [facility] Comment on above: Expected: 07/03/2023 , Expires: 07/02/2024 Start: 04-17-2023 End: 04-17-2023 Patient encounter procedure 04/17/2023 1:00 PM EST Procedure Visit [facility] [address] [place] [address] Onur Kapadia DDS [address] [place] [address] [facility] Start: 03-27-2023 End: 03-27-2023 Patient encounter procedure 03/27/2023 8:30 AM EST Procedure Visit [facility] [address] [place] [address] Onur Kapadia DDS [address] [place] [address] [facility] Start: 03-25-2023 End: 03-25-2023 Patient encounter procedure 03/25/2023 11:30 AM EST Procedure Visit [facility] [address] [place] [address] Alfonzo Mccord DDS [address] [place] [address] [facility] Start: 03-13-2023 [facility] Start: 03-11-[address] [facility] Start: 03-09-2023 Referral to Dimethylaniline Sulfator Operator [facility] Start: 03-09-2023 Hospital admission [facility] Start: 02-18-2023 End: 02-18-2023 Patient encounter procedure 02/18/2023 10:30 AM EST Procedure Visit [facility] [address] [place] [address] Alfonzo Mccord DDS [address] [place] [address] [facility] Start: 02-06-2023 End: 02-06-2023 Patient encounter procedure 02/06/2023 1:00 PM EST Procedure Visit [facility] [address] [place] [address] Vaughn Barrera DDS [address] [place] [address] [facility] Start: 01-21-2023 End: 01-21-2023 Patient encounter procedure 01/21/2023 10:30 AM EST Procedure Visit [facility] [address] [place] [address] Alfonzo Mccord DDS [address] [place] [address] [facility] Start: 12-16-2022 Influenza vaccination Influenza Vacc ine (#1) [facility] Start: 11-30-2022 End: 11-30-2022 Patient encounter procedure [facility] Start: 11-16-2022 Influenza vaccination Influenza Vacc ine (#1) [facility] Start: 11-16-2022 End: 11-16-2022 Patient encounter procedure 11/16/2022 10:30 AM EDT Procedure Visit [facility] [address] [place] [address] Alfonzo Mccord DDS [address] [place] [address] [facility] Start: 10-25-2022 End: 10-25-2022 Patient encounter procedure 10/25/2022 11:00 AM EDT Procedure Visit [facility] [address] [place] [address] Alfonzo Mccord DDS [address] [place] [address] [facility] Start: 10-17-2022 End: 10-17-2022 Patient encounter procedure [facility] Start: 10-11-2022 End: 10-11-2022 Patient encounter procedure [facility] Start: 2022 [facility] Start: 09-28-[address] treatment [facility] Start: 09-28-2022 Hospital admission [facility] Start: 09-05-2022 End: 09-05-2022 Patient encounter procedure 09/05/2022 Procedure Visit Dentistry Ever Christian, AUGUSTUS [address] [place] [address] [facility] Start: 08-23-2022 End: 08-23-2022 Patient encounter procedure 08/23/2022 Procedure Visit Dentistry Christian Curtis DDS [address] [place] [address] [facility] Start: 08-05-2022 [facility] Start: 08-03-2022 Referral to Dimethylaniline Sulfator Operator [facility] Start: 08-03-2022 Hospital admission [facility] Start: 07-16-2022 End: 07-16-2022 Patient encounter procedure 07/16/2022 Procedure Visit Dentistry Erum Laboy DDS [address] [place] [address] [facility] Start: 07-05-2022 End: 07-05-2022 Patient encounter procedure 07/05/2022 Procedure Visit Dentistry Erum Laboy DDS [address] [place] [address] [facility] Start: 06-29-2022 End: 06-29-2022 Patient encounter procedure 06/29/2022 Procedure Visit Dentistry Erum Laboy DDS [address] [place] [address] [facility] Start: 06-18-2022 End: 06-18-2022 Telemedicine consultation with patient [facility] Comment on above: Arrived Start: 06-14-2022 End: 06-14-2022 Patient encounter procedure 06/14/2022 Procedure Visit Dentistry Erum Laboy DDS [address] [place] [address] [facility] Start: 06-13-2022 [facility] Start: 06-12-2022 Hospital admission [facility] Start: 12-16-2021 Influenza vaccination Influenza Vacc ine (#1) [facility] Start: 2021 Hepatitis A (HAV) Vaccine (optional start 19+ years) Hepatitis A (HAV) Vaccine (optional start 19+ years) [facility] Start: 2021 Hepatitis B vaccination [facility] Start: 2021 Hepatitis B Vaccine (1 of 3 - 19+ 3-dose series) Hepatitis B Vaccine (1 of 3 - 19+ 3-dose series) [facility] Start: 2021 Pneumococcal vaccination Pneum ococcal Vaccine(s) (1 of 2 - PCV) [facility] Start: 2021 Third diphtheria, tetanus and acellular pertussis (DTaP) vaccination TDAP (ADULT) [facility] Start: 2021 Urine microalbumin profile DTaP,Tdap,Td Vaccine (1 - Tdap) [facility] Start: 2020 Anxiety Screening Anxiety Screening [facility] Start: 2020 Depression Screening Depression Scre ening [facility] Start: 2020 Hepatitis C screening [facility] Start: 2020 HIV screening HIV Screening [facility] Start: 2020 Tetanus + diphtheria + acellular pertussis vaccine (product) Tdap [facility] Start: 2018 Meningococcal B (Bexsero,OMV) Vaccine (Optional,16-23 years) Meningococcal B (Bexsero,OMV) Vaccine (Optional,16-23 years) [facility] Start: 2018 Meningococcal B (Bexsero,OMV) Vaccine (Optional,16-23 years) (#1) Meningococcal B (Bexsero,OMV) Vaccine (Optional,16-23 years) (#1) [facility] Start: 2018 Meningococcal B Vacc ine (1 of 2 - Standard) Meningococcal B Vaccine (1 of 2 - Standard) [facility] Start: 2017 HIV screening [facility] Start: 2017 HPV Vaccine (1 - Mal e 3-dose series) HPV Vaccine (1 - Male 3-dose series) [facility] Start: 2017 Vaccination for jose rafael n papillomavirus [facility] Start: 2016 Peds To Adult Transi tion Annual Assessment Peds To Adult Transition Annual Assessment [facility] Start: 2014 Depression Screening Depression Scre [facility] Start: 2014 Peds To Adult Transi tion Initial Discussion Peds To Adult Transition Initial Discussion [facility] Start: 2013 Vaccination for jose rafael n papillomavirus [facility] Start: 2008 Pneumococcal vaccination [facility] Start: 04-05-2003 COVID-19 Vaccine (#1) COVID-19 Vacci ne (#1) [facility] Start: 2002 Hepatitis B vaccination Hepati tis B (HBV) Vaccine (1 of 3 - 3-dose series) [facility] Start: 2002 Hepatitis C screening HEPATITI S C VIRUS SCREENING [facility] Start: 2002 Tetanus vaccination TETANUS [facility] 19 DELIVERY - JACKLYN PARTIAL DENTURE - CAST METAL FRAMEWORK W/ RESIN BASES 19 DELIVERY - JACKLYN PARTIAL DENTURE - CAST METAL FRAMEWORK W/ RESIN BASES NE Charge Routine 1 Occurrences starting 09/25/2024 [facility] Work Phone: Comment on above: 1 Occurrences khanh cantu 09/25/2024 19 DIAGNOSIS & PRELI MIN IMPRESSIONS - JACKLYN PARTIAL DENTURE - CAST METAL FRAMEWORK W/ RESIN BASES 19 DIAGNOSIS & PRELIMIN IMPRESSIONS - JACKLYN PARTIAL DENTURE - CAST METAL FRAMEWORK W/ RESIN BASES Dental Routine 1 Occurrences starting 09/25/2024 [facility] Work Phone: Comment on above: 1 Occurrences startjohanne cantu 09/25/2024 19 FRAME TRYIN - COR R CAST IF APPROPRIATE - JACKLYN PARTIAL DENTURE - CAST METAL FRAMEWORK W/ RESIN BASES 19 FRAME TRYIN - MERCED[place] CAST IF APPROPRIATE - JACKLYN PARTIAL DENTURE - CAST METAL FRAMEWORK W/ RESIN BASES Dental Routine 1 Occurrences starting 09/25/2024 [facility] Work Phone: Comment on above: 1 Occurrences startjohanne cantu 09/25/2024 19 JAW RECORDS - MAN D PARTIAL DENTURE - CAST METAL FRAMEWORK W/ RESIN BASES 19 JAW RECORDS - JACKLYN PARTIAL DENTURE - CAST METAL FRAMEWORK W/ RESIN BASES Dental Routine 1 Occurrences starting 09/25/2024 [facility] Work Phone: Comment on above: 1 Occurrences starti ng 09/25/2024 19 JACKLYN PARTIAL DENT URE - CAST METAL FRAMEWORK W/ RESIN BASES 19 JACKLYN PARTIAL DENTURE - CAST METAL FRAMEWORK W/ RESIN BASES Dental Routine 1 Occurrences starting 09/25/2024 [facility] Work Phone: Comment on above: 1 Occurrences starti ng 09/25/2024 19 MOUTH PREPARATION , FINAL IMPRESSIONS - JACKLYN PARTIAL DENTURE - CAST METAL FRAMEWORK W/ RESIN BASES 19 MOUTH PREPARATION, FINAL IMPRESSIONS - JACKLYN PARTIAL DENTURE - CAST METAL FRAMEWORK W/ RESIN BASES Dental Routine 1 Occurrences starting 09/25/2024 [facility] Work Phone: Comment on above: 1 Occurrences starti ng 09/25/2024 19 WAX RIMS - JACKLYN PARTIAL DENTURE - CAST METAL FRAMEWORK W/ RESIN BASES 19 WAX RIMS - JACKLYN PARTIAL DENTURE - CAST METAL FRAMEWORK W/ RESIN BASES Dental Routine 1 Occurrences starting 09/25/2024 [facility] Work Phone: Comment on above: 1 Occurrences starti ng 09/25/2024 19 WAX TRY IN - JACKLYN PARTIAL DENTURE - CAST METAL FRAMEWORK W/ RESIN BASES 19 WAX TRY IN - JACKLYN PARTIAL DENTURE - CAST METAL FRAMEWORK W/ RESIN BASES Dental Routine 1 Occurrences starting 09/25/2024 [facility] Work Phone: Comment on above: 1 Occurrences starti ng 09/25/2024 3 EXTRACTION, ERUPTE D TOOTH OR EXPOSED ROOT (ELEVATION AND/OR FORCEPS REMOVAL) [facility] Work Phone: Comment on above: 1 Occurrences starti ng 09/25/2024 3,14 DELIVERY - MAX PARTIAL DENTURE - CAST METAL FRAMEWORK W/ RESIN BASES 3,14 DELIVERY - MAX PARTIAL DENTURE - CAST METAL FRAMEWORK W/ RESIN BASES NE Charge Routine 1 Occurrences starting 09/25/2024 [facility] Work Phone: Comment on above: 1 Occurrences starti ng 09/25/2024 3,14 DIAGNOSIS & PRELIMIN IMPRESSIONS - MAX PARTIAL DENTURE - CAST METAL FRAMEWORK W/ RESIN BASES 3,14 DIAGNOSIS & PRELIMIN IMPRESSIONS - MAX PARTIAL DENTURE - CAST METAL FRAMEWORK W/ RESIN BASES Dental Routine 1 Occurrences starting 09/25/2024 [facility] Work Phone: Comment on above: 1 Occurrences starti ng 09/25/2024 3,14 FRAME TRYIN - C BRANHAM CAST IF APPROPRIATE - MAX PARTIAL DENTURE - CAST METAL FRAMEWORK W/ RESIN BASES 3,14 FRAME TRYIN - MERCEDES CAST IF APPROPRIATE - MAX PARTIAL DENTURE - CAST METAL FRAMEWORK W/ RESIN BASES Dental Routine 1 Occurrences starting 09/25/2024 [facility] Work Phone: Comment on above: 1 Occurrences starti ng 09/25/2024 3,14 JAW RECORDS - M AX PARTIAL DENTURE - CAST METAL FRAMEWORK W/ RESIN BASES 3,14 JAW RECORDS - MAX PARTIAL DENTURE - CAST METAL FRAMEWORK W/ RESIN BASES Dental Routine 1 Occurrences starting 09/25/2024 [facility] Work Phone: Comment on above: 1 Occurrences starti ng 09/25/2024 3,14 MAX PARTIAL DEN TURE - CAST METAL FRAMEWORK W/ RESIN BASES 3,14 MAX PARTIAL DENTURE - CAST METAL FRAMEWORK W/ RESIN BASES Dental Routine 1 Occurrences starting 09/25/2024 [facility] Work Phone: Comment on above: 1 Occurrences starti ng 09/25/2024 3,14 MOUTH PREPARATI ON, FINAL IMPRESSIONS - MAX PARTIAL DENTURE - CAST METAL FRAMEWORK W/ RESIN BASES 3,14 MOUTH PREPARATION, FINAL IMPRESSIONS - MAX PARTIAL DENTURE - CAST METAL FRAMEWORK W/ RESIN BASES Dental Routine 1 Occurrences starting 09/25/2024 [facility] Work Phone: Comment on above: 1 Occurrences starti ng 09/25/2024 3,14 WAX RIMS - MAX PARTIAL DENTURE - CAST METAL FRAMEWORK W/ RESIN BASES 3,14 WAX RIMS - MAX PARTIAL DENTURE - CAST METAL FRAMEWORK W/ RESIN BASES Dental Routine 1 Occurrences starting 09/25/2024 [facility] Work Phone: Comment on above: 1 Occurrences starti ng 09/25/2024 3,14 WAX TRY IN - MA X PARTIAL DENTURE - CAST METAL FRAMEWORK W/ RESIN BASES 3,14 WAX TRY IN - MAX PARTIAL DENTURE - CAST METAL FRAMEWORK W/ RESIN BASES Dental Routine 1 Occurrences starting 09/25/2024 [facility] Work Phone: Comment on above: 1 Occurrences starti ng 09/25/2024 Patient Education Depression, Ad ult (DC) [facility] DC Instructions [facility] Work Phone: Patient referral [facility] Work Phone: Trigger Point Inject ion: right cervical paraspinals, left cervical paraspinals, right semispinalis capitis, left semispinalis capitis, right splenius capitis, left splenius capitis Trigger Point Injection: right cervical paraspinals, left cervical paraspinals, right semispinalis capitis, left semispinalis capitis, right splenius capitis, left splenius capitis Procedures Routine Myalgia 01/16/2024 10:53 AM EDT [facility] Work Phone: UNSPECIFIED REMOVABL E PROSTHODONTIC PROCEDURE UNSPECIFIED REMOVABLE PROSTHODONTIC PROCEDURE Dental Routine 1 Occurrences starting 09/25/2024 [facility] Work Phone: Comment on above: 1 [...] Cervical spine pain 07/03/2023 12:27 PM EDT [facility] Payers Date Payer Category Payer Medicaid (Managed Care) [facility] MEDICAID [id number] 2022 Self-pay [id number] 2022 Medicaid [id number] 2022 Medicaid O [facility] PLAN on file [id number] 2021 Dental --Stand Alone DENTAL - EN [facility] [id number] 2021 Unknown [id number] 1.13.56.2.7 .[id number] 2002 Unknown [id number] 2.16.840.1.757855.3.579.2. 727 2002 Unknown [id number] 2.16.840.1.346949.3.579.2. 593 2002 Unknown [id number] 2.16.840.1.185301.3.579.2. 593 2002 Unknown [id number] 2.16.840.1.502743.3.579.2. 593 2002 Unknown [id number] 2.16.840.1.563583.3.579.2. 593 2002 Unknown [id number] 2.16.840.1.895744.3.579.2. 593 2002 Unknown [id number] 2.16.840.1.035015.3.579.2. 1286 2002 Unknown [id number] 2.16.840.1.304564.3.579.2. 128 2002 Unknown [id number] 2.16.840.1.369871.3.579.2. 128 2002 Unknown [id number] 2.16.840.1.736725.3.579.2. 73 2002 Unknown [id number] 2.16.840.1.370915.3.579.2. 732 2002 Unknown [id number] 2.16.840.1.019808.3.579.2. 73 2002 Unknown [id number] 2.16.840.1.822084.3.579.2. 732 2002 Unknown [id number] 2.16.840.1.985146.3.579.2. 73 2002 Unknown [id number] 2.16.840.1.644022.3.579.2. 732 2002 Unknown [id number] 2.16.840.1.062921.3.579.2. 125 2002 Unknown [id number] 2.16.840.1.020153.3.579.2. 1258 2002 Unknown [id number] 2.16.840.1.286291.3.579.2. 1258 2002 Unknown [id number] 2.16.840.1.352303.3.579.2. 1258 2002 Unknown [id number] 2.16.840.1.412356.3.579.2. 1258 2002 Unknown [id number] 2.16.840.1.599696.3.579.2. 1258 2002 Unknown [id number] 2.16840.1.714304.3.579.2. 1258 2002 Unknown [id number] 2.16840.1.780489.3.579.2. 1258 2002 Unknown [id number] 2.16840.1.431473.3.579.2. 1258 2002 Unknown [id number] 2.16840.1.281662.3.579.2. 1258 2002 Unknown [id number] 2.16840.1.259045.3.579.2. 1258 2002 Unknown [id number] 2.16.840.1.024278.3.579.2. 1258 2002 Unknown [id number] 2.16840.1.947742.3.579.2. 1258 2002 Unknown [id number] 2.16.840.1.660691.3.579.2. 1258 2002 Unknown [id number] 2.16.840.1.953255.3.579.2. 1258 2002 Unknown [id number] 2.16.840.1.160660.3.579.2. 1258 2002 Unknown [id number] 2.16.840.1.023791.3.579.2. 1258 2002 Unknown [id number] 2.16.840.1.370110.3.579.2. 1258 2002 Unknown [id number] 2.16.840.1.517822.3.579.2. 1258 2002 Unknown [id number] 2.16.840.1.620386.3.579.2. 1258 2002 Unknown [id number] 2.16.840.1.770451.3.579.2. 1258 2002 Unknown [id number] 2.16.840.1.348749.3.579.2. 1258 2002 Unknown [id number] 2.16840.1.721233.3.579.2. 1258 2002 Unknown [id number] 2.16840.1.031327.3.579.2. 1258 2002 Unknown [id number] 2.16840.1.813705.3.579.2. 1258 2002 Unknown [id number] 2.16840.1.841785.3.579.2. 1258 2002 Unknown [id number] 2.16.840.1.324311.3.579.2. 1258 2002 Unknown [id number] 2.16.840.1.686253.3.579.2. 1258 2002 Unknown [id number] 2.16840.1.531374.3.579.2. 1258 2002 Unknown [id number] 2.16.840.1.463508.3.579.2. 1258 2002 Unknown [id number] 2.16.840.1.313816.3.579.2. 1258 2002 Unknown [id number] 2.16.840.1.838759.3.579.2. 1258 2002 Unknown [id number] 2.16.840.1.445642.3.579.2. 1259 2002 Unknown [id number] 2.16.840.1.207912.3.579.2. 9 2002 Unknown [id number] 2.16.840.1.444506.3.579.2. 9 2002 Unknown [id number] 2.16.840.1.930509.3.579.2. 9 2002 Unknown [id number] 2.16.840.1.896909.3.579.2. 9 2002 Unknown [id number] 2.16.840.1.628178.3.579.2. 1259 1959 Unknown [id number] Unknown [id number] 2.16.840.1.937683.3.579.2. 531 Unknown [id number] 2.16.840.1.616213.3.579.2. 531 Social History Date Type Detail Facility Tobacco smoking status [facility] Start: 05-22-2022 End: 05-07-2024 Sex Assigned At Male [facility] Start: 05-22-2022 [facility] History of tobacco use Cigar Smoker [facility] Start: 05-22-2022 End: 11-12-2023 Tobacco use and exposure Smokeless tobacco non-user [facility] Start: 05-22-2022 Tobacco Comment Patient stated that he smokes marijuana cigars on a daily basis. [facility] Start: 2000 Sex Assigned At Not on file [facility] Start: 06-13-2022 End: 11-12-2023 Tobacco smoking status SCIS Never smoked tobacco (finding) [facility] Start: 2000 Sex Assigned At Male Jj [facility] Start: 05-22-2022 End: 05-07-2024 History of Social function [facility] Start: 12-16-2023 End: 05-07-2024 Alcoholic beverage intake Lifetime non-drinker (finding) [facility] Start: 09-17-2023 Alcohol Comment Caffeine: 1-2 cups per day [facility] Start: 03-30-2022 End: 07-16-2024 Sex Male (finding) [facility] Start: 07-03-2023 Alcoholic beverage intake Current drinker of alcohol (finding) [facility] Childcare Unknown [facility] Start: 06-19-2022 Alcohol Comment ocassional [facility] Start: 06-03-2024 End: 08-07-2024 Alcoholic beverage intake Ex-drinker (finding) [facility] Goals Date Patient Goal Desired Activity /State Functional Status Date Assessment Result Facility 03-13-2023 Functional status Patient at Baseline [facility] Work Phone: 2022 Functional status Patient at [facility] Work Phone: 08-05-2022 Functional status Patient at [facility] Work Phone: 06-13-2022 Functional status Patient at Baseline [facility] Work Phone: Mental Status Date Assessment Result Facility 03-13-2023 Cognitive function Cognitive Sta tus Patient at Baseline [facility] Work Phone: 2022 Cognitive function Cognitive Sta tus Patient at Baseline [facility] Work Phone: 08-05-2022 Cognitive function Cognitive Sta tus Patient at Baseline [facility] Work Phone: 06-13-2022 Cognitive function Cognitive Sta tus Patient at Baseline [facility] Work Phone: Clinical Notes 04-19-2022 to 11-10-2024 Telephone Encounter - Manpreet Dobbs - 11/10/2024 3:14 PM EDTTelephone Encounter - Manpreet Dobbs - 11/10/2024 3:14 PM Dylan Mckeon, Therapist - 10/12/2024 7:48 AM EDTPatient Instructions Note Date & Type Note Facility 11-10-2024 Telephone encounter Note Called regarding the cx of his PT eval that was on 10/28/24 and check the reasoning. He had said he had an MRI done recently and wants to hold off till he gets the results. Per Betty, he noted to just close referral pending MRI results. I notified that if PT is recommended a new PT referral will need to be resent for auth before beginning. [facility] 11-10-2024 Miscellaneous Notes Called regarding the cx of his PT eval that was on 10/28/24 and check the reasoning. He had said he had an MRI done recently and wants to hold off till he gets the results. Per Betty, he noted to just close referral pending MRI results. I notified that if PT is recommended a new PT referral will need to be resent for auth before beginning. documented in this encounter [facility] 10-12-2024 Note HNO ID: [id number] Author: DYLAN LITTLE, Therapist Service: ? Author Type: Therapist Type: Progress Notes Filed: 10/12/2024 08:59 Note Text: No show. [facility] 10-12-2024 History of Present illness Narrative No show. documented in this encounter [facility] 10-08-2024 Telephone encounter Note She called in request of latest PT Progress Note; in need of submission per doctor. Faxed over PT 07/31/24. [facility] 10-08-2024 Miscellaneous Notes She called in request of latest PT Progress Note; in need of submission per doctor. Faxed over PT 07/31/24. documented in this encounter [facility] 09-25-2024 History of Present illness Narrative Dental Consult 09/25/2024 Collections Professional Needed: No. Chief Complaint Patient presents with [...] orthodontic consultation appointment and phone number for [facility] grad ortho clinic was given to patient. Pt questions were answered and pt was dismissed in stable condition. Plan/Recommendations: Continue with treatment plan once pt makes decision on treatment Encounter Providers Dental Student: Elizabeth Lucero documented in this encounter [facility] Work Phone: 09-02-2024 History of Present illness Narrative Dental Procedure 09/02/2024 Collections Professional Needed: No. Chief Complaint Patient presents with [...] underlying discoloration. Tooth structure was solid below samaritan so applied etch, Gluma, OptiBond and restored with A1 composite as well. Polished and removed flash. Next Visit: [place] prep and temp #2 Encounter Providers Dentist: Dago Vallejo DDS Dental Student: Elizabeth Lucero documented in this encounter [facility] Work Phone: 09-02-2024 Miscellaneous Notes Was local [...] underlying discoloration. Tooth structure was solid below samaritan so applied etch, Gluma, OptiBond and restored with A1 composite as well. Polished and removed flash. 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 Yes [...] underlying discoloration. Tooth structure was solid below samaritan so applied etch, Gluma, OptiBond and restored with A1 composite as well. Polished and removed flash. [facility] Work Phone: 09-01-2024 History of Present illness Narrative Dental Procedure 09/01/2024 Collections Professional Needed: No. Chief Complaint Patient presents with [...] (0.5 carp) Dosage form: Infiltration Existing composite samaritan was removed to jean-claude percha. Restored with A1 paracore system. Flash was removed and samaritan was smoothed. Occlusion checked with articulating paper and contacts checked with floss. Pt dismissed in stable condition. Next Visit: [place] #2 prep and temp Encounter Providers Dental Student: Elizabeth Lucero documented in this encounter [facility] Work Phone: 09-01-2024 Miscellaneous Notes Was local anesthetic administered? Yes Name of medication: Articaine 4% with Epinephrine 1:100,000 (0.5 carp) Dosage form: Infiltration Existing composite samaritan was removed to jean-claude percha. Restored with A1 paracore system. Flash was removed and samaritan was smoothed. Occlusion checked with articulating paper and contacts checked with floss. Pt dismissed in stable condition. 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 Yes Name of medication: Articaine 4% with Epinephrine 1:100,000 (0.5 carp) Dosage form: Infiltration Existing composite samaritan was removed to jean-claude percha. Restored with A1 paracore system. Flash was removed and samaritan was smoothed. Occlusion checked with articulating paper and contacts checked with floss. Pt dismissed in stable condition. [facility] Work Phone: 09-01-2024 History of Present illness Narrative Restorationism: #2 - MOBDL Presented pt. with the [...] pt. in stable condition. Dental Procedure 09/01/2024 Collections Professional Needed: No. Chief Complaint Patient presents with [...] Student: Elizabeth Lucero documented in this encounter [facility] Work Phone: 09-01-2024 Miscellaneous Notes Was local anesthetic administered? 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 Yes Name of medication: Articaine 4% with Epinephrine 1:100,000 Dosage form: 1 [facility] Work Phone: 08-07-2024 Note HNO ID: [id number] Author: MANPREET KELLEY, DO Service: ? Author Type: Physician Type: Progress Notes Filed: 08/07/2024 11:13 Note Text: [facility] [place] August 07, 2024 Betty Rosenberg is a 23 year old currently lives with his 2 brothers He was referred by Ian Iqbal [address] [facility] [id number]. Chief complaint: Polyarthralgia SUBJECTIVE: Pt was referred by Dr. Iqbal, there are pending future labs. Pt reports he went to [facility] to have the labs drawn. Pt reports his pain is in his bones.He reports pain in right knee, wrists. He has popping in his right leg. He also has right shoulder pain. He has had a bone density test at [facility] and he was diagnosed with osteopenia. Spine Red Flag Betty Rosenberg has no red flag symptoms. 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 Allergies: Reviewed in the EMR Current Medications: Reviewed in the EMR Medical History: Reviewed in the EMR Surgical History: Reviewed in the EMR Psychiatric History: Anxiety Depression He used to see a psychiatrist He has been admitted about 12 times at [facility], for SI He has stopped all meds, [...] consult, can schedule this closer to home, [facility] close follow up with his PCP Nutrition: N Therapies: placed new order for PT Sleep: N Worklessness: N Medications: continue with PRN Voltaren gel Interventions: N Infusions: pt is not a candidate for Ketamine at this time 9. Pain Psychology: referral to pain psychology, needs to re establish with a therapist close to home as well Review, Ask, Review: Y Follow-up: PRN Manpreet Kelley DO I spent a total of 35 minutes on the date of the service which included preparing to see the patient, [id number] patient care, completing clinical documentation, obtaining and/or reviewing separately obtained history, performing a medically appropriate examination, counseling and educating the patient/family/caregiver, and ordering medications, tests, or procedures. Important Patient Information: 1. To schedule Pain Recovery appointments or post-injection office visits, please call: [phone] 2. The nursing staff and medical assistants are an integral part of your pain recovery team and will be handling your phone calls and in (more content not included)... [facility] 08-07-2024 Note HNO ID: [id number] Author: ANUJA PEREZ RN Service: ? Author Type: Registered Nurse Type: Progress Notes Filed: 08/07/2024 11:13 Note Text: Pt notes he has tried gabapentin in the past with benefit but this was discontinued by his PCP. Pt reported to RN feeling depressed, self reported anorexia, anxiety. Anuja Perez RN [facility] 07-30-2024 Telephone encounter Note Pt called asking me to fax all lab orders to [facility] [phone] - Orders has been faxed to number provided. [facility] 07-30-2024 Miscellaneous Notes Pt called asking me to fax all lab orders to [facility] [phone] - Orders has been faxed to number provided. documented in this encounter [facility] 07-13-2024 Telephone encounter Note Contacted and he was able to schedule. Got him in 07/14 and 07/17/24. He said tomorrow we can schedule more. [facility] 07-13-2024 Miscellaneous Notes Contacted and he was able to schedule. Got him in 07/14 and 07/17/24. He said tomorrow we can schedule more. Tried to contact to notify of PT auth received; 8 PT's out to 08/01/24. Requested a call back to schedule at his earliest convenience. documented in this encounter [facility] 06-30-2024 Telephone encounter Note Tried to contact to notify of PT auth received; 8 PT's out to 08/01/24. Requested a call back to schedule at his earliest convenience. [facility] 06-03-2024 Note HNO ID: [id number] Author: IAN IQBAL MD Service: ? Author [...] body aches als (more content not included)... [facility] 06-03-2024 History of Present illness Narrative Images [...] TIME: 11:55 AM documented in this encounter [facility] 05-19-2024 Telephone encounter Note Scheduled his PT out to 06/15/24. [facility] 05-19-2024 Miscellaneous Notes Scheduled his PT out to 06/15/24. Contacted noting we had received more auth for PT, 05/06-06/15 w 12 visits; but he requested a call back to schedule out. documented in this encounter [facility] 05-18-2024 Telephone encounter Note Contacted noting we had received more auth for PT, 05/06-06/15 w 12 visits; but he requested a call back to schedule out. [facility] 05-06-2024 History of Present illness Narrative Images from the original note were not included. Physical Therapy Treatment Visit Patient Name: Betty Rosenberg Today's Date: 05/06/2024 Encounter Diagnoses Name Primary? Rotator cuff impingement syndrome of right shoulder Yes Shoulder joint hypermobility Visit number: 8 Timed Code Treatment Minutes: 53 minutes Total [...] legs. 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 Pt. Has to depend on other people for help with daily tasks due to severe pain. Pt. Reports he feels his health is so bad he will [place] in [place] next year. Precautions: universal, history poor eating habits. (Anorexia) due to jaw pain and does not want to eat Subjective: Pt reports of no change in his shoulder issues. Pt reports that Left shoulder has not gotten worse. He reports shoulders are feeling slightly better. Pt reported Dr. Cesar wanted Pt to get a second opinion on shoulders. He going to [place] for an osteopathic doctor next month (06/01). [...] to be instructed in home exercise program. Belt Cleaner Goals: To be met in 10 weeks [...] sign below. Date: documented in this encounter [facility] 04-22-2024 History of Present illness Narrative Images [...] so bad he will be in a [place] by next year. Precautions: universal, history poor [...] to be instructed in home exercise program. Group Home Goals: To be met in 10 weeks [...] sign below. Date: documented in this encounter [facility] 04-20-2024 History of Present illness Narrative Images [...] so bad he will [place] in a [place] by next year. Precautions: universal, history poor [...] to be instructed in home exercise program. Belt Cleaner Goals: To be met in 10 weeks [...] sign below. Date: documented in this encounter [facility] 04-16-2024 Telephone encounter Note Called re: CRUZ and he said he had just moved yesterday and has no transportation set-up. I reminded of PT on 04/20 and he said Ok . [facility] 04-16-2024 Miscellaneous Notes Called re: CRUZ and he said he had just moved yesterday and has no transportation set-up. I reminded of PT on 04/20 and he said Ok . documented in this encounter [facility] 04-09-2024 History of Present illness Narrative ----- , April 09, 2024 at 4:15:06 PM ----- ----- Provider: Resident Sarah -- Clinic: [place] ----- COMPOSITE SABIANIST Patient is scheduled for Restorationism on tooth #2 ODLB and 4 surface MOD. Reviewed Medical History. Pt exhibited the following conditions: No significant medical history Patient is ready for treatment. Topical Benzocaine gel applied at the injection site for 2 minutes. Administered 1 carpules of Lidocaine, 2% with Epinephrine 1:100,000,. Cotton roll isolation achieved. Decay/existing samaritan removed, cavity prepared. Selectively etched enamel with 37% phosphoric acid, rinsed, and blot dried. OptiBond delaney applied and light-cured. Condensed packable composite shade A2 in light cured increments using Toffelmaire matrix band retainer and wedge. Finished with finishing burs, checked occlusion, verified proximal contacts and samaritan was polished. Rinsed and suctioned intraorally, advised patient to not eat until local anesthesia wears off. POST OPERATIVE Bitewing (single) RADIOGRAPH TAKEN. NOTE: Post camryn instructions given to patient,CAMRYN DONE BY NESTOR student Paolo Next Visit: Restorative. ----- Signed on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 Narrative* Cherise Ramirez [...] myself . Patient denied having a plan. [employer] police was called while exam continued. Review [...] work presented to discuss suicidal i deations, [facility] also [facility]. Patient willing to go down to ED for evaluation. Note: Unable to direct conversation to possibility of trigger point injections to the masseter and temporalis. This would be something we can offer while patient awaits his appointment with dentistry. Plan: -Follow up nadia Ramirez DMD, MD documented in this [id number] Telephone encounter Note* Telephone Encounter - Martine Rivas - 06/08/2022 10:17 AM EDT PT called in stating he's experiencing an intense amount of pain and that its so unbearable that hewants to kill himself. I spoke to Becca and she gave the PT the soonest appt which is next 06/14 @ 8 am at [facility] oral surgery. Please call PT at your earliest convenience [phone]. PT would like to speak to you regarding another Xray he had received from another facility. [id number] Miscellaneous Notes* Telephone Encounter - Martine Rivas - 06/08/2022 10:17 AM EDT PT called in stating he's experiencing an intense amount of pain and that its so unbearable that hewants to kill himself. I spoke to Becca and she gave the PT the soonest appt which is next 06/14 @ 8 am at [facility] oral surgery. Please call PT at your earliest convenience [phone]. PT would like to speak to you [...] show availability. States he was in the [place] ER yesterday and told to immediately FU with his oral surgery provider. Please advise. [phone] documented in this [id number] Telephone encounter Note* Telephone Encounter - Cherise [...] He voiced understanding. Cherise Ramirez DMD, MD [id number] Miscellaneous Notes* Telephone Encounter - Cherise Ramirez [...] show availability. States he was in the [place] ER yesterday and told to immediately FU with his oral surgery provider. Please advise. [phone] documented in this [id number] Telephone encounter Note* Telephone Encounter - Shaina Heath - 06/05/2022 10:54 AM EDT Patient was recently evaluated by Dr. Ramirez for TMJ. Asked to make 6 week FU appointment however, he is experiencing an intense amount of pain. Requesting a sooner appointment but I do not show availability. States he was in the [place] ER yesterday and told to immediately FU with his oral surgery provider. Please advise. [phone] [id number] History of Present illness Narrative* Carin Cruz - 05/22/2022 1:40 PM EST Images from the original note were not included. * Sam Enamorado DMD - 05/22/2022 1:29 PM EST [facility] PATIENT VISIT CHIEF COMPLAINT: TMJ pain HISTORY OF PRESENT ILLNESS: 21 year old male with no significant PMH presents to [facility] as a referral from an outside [...] No bony pathology ntoed DIAGNOSIS: Myofascial pain [656365] TREATMENT: Exam and Panorex evaluated PLAN: 21 yom with no significant PMH presents with myofascial pain of MoM. Pt is known to clench and could benefit from an occlusal beach lifeguard. Pt referred to Dr. Danielson for evaluation of TMD and possible fabrication of occlusal beach lifeguard. Pt to follow conservative therapy until he can be evaluated andtreated by Dr. Danielson. Conservative Myofascial Therapy - Flexeril 10 mg at bedtime PRN - ibuprofen 600 mg Q6H - Warm compresses to affected area - Soft food diet - Wear occlusal beach lifeguard splint Sam Enamorado DMD documented in this [id number] Instructions* Patient Instructions* Pawan Parker DMD - 05/22/2022 1:40 PM EST Conservative TMD Therapy - Flexeril 10 mg at bedtime PRN - ibuprofen 600 mg Q6H - Warm compresses to affected area - Soft food diet - Wear occlusal beach lifeguard splint documented in this [id number] Evaluation + Plan note Diagnostic Tests Pending * Rheumatoid Factor Quantitative 04/19/22 * YESENIA w/Reflex if POS [facility] Diagnosis Myofascial pain- Primary Mylagia and [...] note* Diagnosis Onset Date Resolution Status Depression [facility] Work Phone: Evaluation note* Diagnosis Onset Date Resolution Status Depression acute Suicidal ideation acute Depression acute Tooth ache acute [facility] Work Phone: Evaluation note* Diagnosis Poor oral [...] [facility]* Diagnosis Cervicalgia documented [facility]* Diagnosis Rotator cuff impingement syndrome of right shoulder documented [facility]* Diagnosis Rotator cuff impingement syndrome of right shoulder- Primary Shoulder joint hypermobility documented [facility]* Diagnosis Cervical radiculopathy- Primary Brachial neuritis or radiculitis nos Cervical spine pain Numbness of tongue Cervical radiculopathy Brachial neuritis or radiculitis nos Cervical spine pain [facility] Diagnosis Cervicalgia- Primary Paresthesia Disturbance of skin sensation Anesthesia of skin Disturbance of skin sensation documented in this encounter [facility]* Diagnosis Rotator cuff impingement syndrome of right shoulder- Primary Shoulder joint hypermobility documented in this encounter [facility]* Diagnosis Rotator cuff impingement syndrome of right shoulder- Primary Shoulder joint hypermobility documented in this encounter [facility] HealthcareEvaluation note* Diagnosis Pain in other joint- Primary Myalgia Mylagia and myositis, unspecified [facility] Diagnosis Rotator cuff impingement syndrome of right shoulder- Primary Shoulder joint hypermobility documented in this encounter [facility] HealthcareEvaluation note* Diagnosis Caries- Primary Unspecified dental caries documented in this encounter [facility] Work Phone: Evaluation note* Diagnosis Caries- Primary Unspecified dental caries Encounter for dental examination Dental examination documented in this encounter [facility] Work Phone: Evaluation note* Diagnosis Defective dental samaritan- Primary Unspecified unsatisfactory samaritan of tooth Dental caries on pit and fissure surface penetrating into pulp Dental caries pit and fissure documented in this encounter [facility] Work Phone: Evaluation note* Diagnosis No-show for appointment- Primary documented in this encounter [facility] course Narrative No data available for this section [facility] No data available for this section [facility] Discharge instructions Additional Instructions Regular Diet No Activity [facility] Work Phone: InstructionsNot on filedocumented in this encounter [facility] SystemProgress note No data available for this section [facility] N[facility]ative* Rehabilitation - Outpatient (Routine) - Authorized Specialty Diagnoses / Procedures Referred By Clint franks Referred To Contact Physical Therapy Diagnoses Rotator cuff impingement syndrome of right shoulder Shoulder joint hypermobility Procedures NE OFFICE/OUTPATIENT [facility] Justus Leggett PA [address] [place] [address] Phone: tel: fax: Brian Seymour, PT 112 [facility] [address] [place] [address] Phone: tel: fax: Referral ID Status Reason Start Date Expiration Date Visits Requested Visits Authorized [id number] Authorized Specialty Services Required 4 08/09/2024 5 5 [facility] for [facility] Narrative* Rehabilitation - Outpatient (Routine) - Authorized Specialty Diagnoses / Procedures Referred By Clint franks Referred To Contact Physical Therapy Diagnoses Rotator cuff impingement syndrome of right shoulder Shoulder joint hypermobility Procedures NE OFFICE/OUTPATIENT [facility], JOSÉ MANUEL Hendrix [address] [facility] [place] [address] Phone: tel: fax: Brian Seymour, PT [address] [address] Phone: tel: fax: Referral ID Status Reason Start Date Expiration Date Visits Requested Visits Authorized [id number] Authorized Specialty Services Required 4 03/17/2024 5 5 [facility] for visit Narrative* Other Medical (Routine) - Closed Specialty Diagnoses / Procedures Referred By Clint franks Referred To Contact Neurology Diagnoses Cervicalgia Procedures Trigger Point Injection: right cervical paraspinals, left cervical paraspinals, right semispinalis capitis, left semispinalis capitis, right upper trapezius, left upper trapezius Kimmie Luz NP [address] [place] [address] Phone: tel: fax: YESENIA VICTOR [address] [place] [phone] Phone: tel: fax: Referral ID Status Reason Start Date Expiration Date Visits Re quested Visits Authorized [id number] Closed 03/30/2024 09/26/2024 1 1 [facility] for [facility] Narrative* Rehabilitation - Outpatient (Routine) - Authorized Specialty Diagnoses / Procedures Referred By Clint franks Referred To Contact Physical Therapy Diagnoses Rotator cuff impingement syndrome of right shoulder Procedures NE OFFICE/OUTPATIENT NEW HIGH MDM 60 MINUTES NE THERAPEUTIC PX 1/> AREAS EACH 15 MIN EXERCISES NE THER PX 1/> AREAS EACH 15 MIN NEUROMUSC REEDUCA NE OFFICE/OUTPATIENT NEW HIGH MDM 60 MINUTES PHYS/OCC THERAPY Justus Lawson, PA [address] [place] [address] Phone: tel: fax: Brian Seymour, PT [address] [address] Phone: tel: fax: Referral ID Status Reason Start Date Expiration Date Visits Requested Visits Authorized [id number] Authorized Specialty Services Required 04/06/2024 2024 8 8 [facility]Reason for visit Narrative* Rehabilitation - Outpatient (Routine) - Authorized Specialty Diagnoses / Procedures Referred By Clint franks Referred To Contact Physical Therapy Diagnoses Rotator cuff impingement syndrome of right shoulder Procedures NE OFFICE/OUTPATIENT NEW HIGH MDM 60 MINUTES NE THERAPEUTIC PX 1/> AREAS EACH 15 MIN EXERCISES NE THER PX 1/> AREAS EACH 15 MIN NEUROMUSC REEDUCA NE OFFICE/OUTPATIENT NEW HIGH MDM 60 MINUTES PHYS/OCC THERAPY Justus Lawson, PA [address] [place] [address] Phone: tel: fax: Brian Seymour, PT [address] [address] Phone: tel: fax: Referral ID Status Reason Start Date Expiration Date Visits Requested Visits Authorized [id number] Authorized Specialty Services Required 04/06/2024 03/17/2025 8 8 [facility] for visit Narrative* Rehabilitation - Outpatient (Routine) - Closed Specialty Diagnoses / Procedures Referred By Clint franks Referred To Contact Physical Therapy Diagnoses Rotator cuff impingement syndrome of right shoulder Procedures NE OFFICE/OUTPATIENT NEW HIGH MDM 60 MINUTES NE THERAPEUTIC PX 1/> AREAS EACH 15 MIN EXERCISES NE THER PX 1/> AREAS EACH 15 MIN NEUROMUSC REEDUCA NE OFFICE/OUTPATIENT NEW HIGH MDM 60 MINUTES PHYS/OCC THERAPY Justus Lawson, PA [address] [place] [address] Phone: tel: fax: Brian Seymour, PT 112 [facility] [address] [place] [address] Phone: tel: fax: Referral ID Status Reason Start Date Expiration Date V isits Requested Visits Authorized [id number] Closed Specialty Services Required 04/06/2024 03/17/2025 8 8 [facility] N[facility]ative* Rehabilitation - Outpatient (Routine) - Authorized Specialty Diagnoses / Procedures Referred By Clint franks Referred To Contact Physical Therapy Diagnoses Rotator cuff impingement syndrome of right shoulder Procedures NE OFFICE/OUTPATIENT NEW HIGH MDM 60 MINUTES NE THERAPEUTIC PX 1/> AREAS EACH 15 MIN EXERCISES NE THER PX 1/> AREAS EACH 15 MIN NEUROMUSC REEDUCA NE OFFICE/OUTPATIENT NEW HIGH MDM 60 MINUTES PHYS/OCC THERAPY Justus Lawson, PA [address] [place] [address] Phone: tel: fax: Brian Seymour, PT 112 [facility] [address] [place] [address] Phone: tel: fax: Referral ID Status Reason Start Date Expiration Date Visits Requested Visits Authorized [id number] Authorized Specialty Services Required 05/06/2024 06/15/2024 12 12 [facility] for visit Narrative* Rehabilitation - Outpatient (Routine) - Authorized Specialty Diagnoses / Procedures Referred By Clint franks Referred To Contact Physical Therapy Diagnoses Rotator cuff impingement syndrome of right shoulder Procedures NE OFFICE/OUTPATIENT NEW HIGH MDM 60 MINUTES NE THERAPEUTIC PX 1/> AREAS EACH 15 MIN EXERCISES NE THER PX 1/> AREAS EACH 15 MIN NEUROMUSC REEDUCA NE OFFICE/OUTPATIENT NEW HIGH MDM 60 MINUTES PHYS/OCC THERAPY Justus Lawson, PA [address] [place] [address] Phone: tel: fax: Brian Seymour, PT [address] [address] Phone: tel: fax: Referral ID Status Reason Start Date Expiration Date V isits Requested Visits Authorized [id number] Authorized 06/24/2024 08/01/2024 8 8 [facility]Reason for visit Narrative* Rehabilitation - Outpatient (Routine) - Closed Specialty Diagnoses / Procedures Referred By Contac t Referred To Contact Physical Therapy Diagnoses Rotator cuff impingement syndrome of right shoulder Procedures NE OFFICE/OUTPATIENT NEW HIGH MDM 60 MINUTES NE THERAPEUTIC PX 1/> AREAS EACH 15 MIN EXERCISES NE THER PX 1/> AREAS EACH 15 MIN NEUROMUSC REEDUCA NE OFFICE/OUTPATIENT NEW HIGH MDM 60 MINUTES PHYS/OCC THERAPY SS Justus Leggett, JOSÉ MANUEL [address] [facility] [place] [place] [address] Phone: tel: fax: Brian Seymour, PT 112 [facility] [address] [place] [address] Phone: tel: fax: Referral ID Status Reason Start Date Expiration Date Visits Re quested Visits Authorized [id number] Closed 06/24/2024 08/01/2024 8 8 [facility] Healthcare Summary Purpose Family History Relationship Condition Age at Onset Recorded Date/T melissa father Malignant neoplasm of lung Unknown Not Specified Drug abuse Unknown Advance Directives Advance Directive Response Recorded Date/ Time Advance Directives No April 2:10pm Advance Directive Response Recorded Date/ Time Advance Directives No April 1:10pm Reason for Referral Specialty Diagnoses / Procedures Referred By Contac t Referred To Contact Radiology Diagnoses Cervical radiculopathy Cervical spine pain Numbness of tongue Procedures MR brain with and without contrast Ellen Paul, PA-C [address] [place] [address] Referral ID Status Reason Start Date Expiration Date V isits Requested Visits Authorized [id number] Pending Review 07/03/2023 07/02/2024 1 1 Specialty Diagnoses / Procedures Referred By Contac t Referred To Contact Rehabilitation Diagnoses Cervical radiculopathy Cervical spine pain Verhoff, Ellen N, ANGELINE [address] [place] [address] [facility] [address] [place] [address] Referral ID Status Reason Start Date Expiration Date V isits Requested Visits Authorized [id number] Closed Specialty Services Required 07/03/2023 07/02/2024 1 1 Specialty Diagnoses / Procedures Referred By Clint franks Referred To Contact Physical Therapy Diagnoses Rotator cuff impingement syndrome of right shoulder Shoulder joint hypermobility Procedures NE OFFICE/OUTPATIENT [facility] 60 MINUTES Justus Leggett PA [address] [place] [address] Brian Seymour, PT 112 [facility] [address] [place] [address] Referral ID Status Reason Start Date Expiration Date Visits Requested Visits Authorized [id number] Pending Review Specialty Services Required 11/15/2023 05/13/2024 1 1 Scheduling Instructions Please call to schedule. Specialty Diagnoses / Procedures Referred By Clint franks Referred To Contact Physical Therapy Diagnoses Myalgia of mastication muscle Myalgia of muscle of neck Arthralgia of right temporomandibular joint Ruel Cruz, DMD [address] [place] [address] Physical Therapy [address] [place] [address] Referral ID Status Reason Start Date Expiration Date Visits Requested Visits Authorized [id number] Pending Review [facility], [facility] 06/14/2022 06/15/2023 10 10 Scheduling Instructions SCHEDULING INSTRUCTIONS: Call [phone] to schedule your Physical Therapy appointment. We offer therapy services at many convenient locations. Please arrive 20 minutes prior to your appointment to register. It is important to bring your insurance cards and a personal identification card to your appointment. If you are unable to keep your appointment, cancel or reschedule by calling [phone] or via [employer]. Thank you! Question Answer Is this for [...] Diagnoses Myofascial pain Cherise Ramirez DMD, MD [address] [place] [address] [facility] [address] [place] [address] Referral ID Status Reason Start Date Expiration Date Visits Requested Visits Authorized [id number] Pending Review [facility] 05/22/2022 05/23/2023 3 3 [...] team informatio n (unrecognized section and content) Electrical Test Technician Relationship Specialty Start Date End Date Erum Laboy DDS [address] [place] [address] Fellow Dentistry 06/16/22 Cherise Ramirez DMD, MD [address] [place] [address] Physician Oral & Maxillofacial Surgery 06/16/22 Electrical Test Technician Relationship Specialty Start Date End Date Erum Laboy DDS [address] [place] [address] [phone] Fellow Dentistry 06/16/22 Cherise Ramirez DMD, MD [address] [place], [place] [phone] Physician Oral & Maxillofacial Surgery 06/16/22 Team Status: Active Member Role Status Dates Darin Montoya STUDENT SERVICES COUNSELOR- Primary Care Provider Active Team Status: Inactive Member Role Status Dates Darin Montoya [facility]- Primary Care Provider Active Tana Ca MD Admit Provider, Attending Pr ovider Active Electrical Test Technician Relationship Specialty Start Date End Date Erum Laboy DDS [address] [place] [phone] Fellow Dentistry 06/16/22 Cherise Ramirez DMD, MD [address] [place] [address] Physician Oral & Maxillofacial Surgery 06/16/22 Electrical Test Technician Relationship Specialty Start Date End Date Erum Laboy DDS [address] [place] [phone] Fellow Dentistry 06/16/22 Cherise Ramirez DMD, MD [address] [place] [address] Physician Oral & Maxillofacial Surgery 06/16/22 Electrical Test Technician Relationship Specialty Start Date End Date Erum Laboy DDS [address] [place] [address] Fellow Dentistry 06/16/22 Cherise Ramirez DMD, MD [address] [place] [phone] Physician Oral & Maxillofacial Surgery 06/16/22 Electrical Test Technician Relationship Specialty Start Date End Date Erum Laboy DDS [address] [place] [address] Fellow Dentistry 06/16/22 Cherise Ramirez DMD, MD [address] [place] [address] Physician Oral & Maxillofacial Surgery 06/16/22 Electrical Test Technician Relationship Specialty Start Date End Date Erum Laboy DDS [address] [place] [address] Fellow Dentistry 06/16/22 Cherise Ramirez DMD, MD [address] [place] [address] Physician Oral & Maxillofacial Surgery 06/16/22 Team Status: Inactive Member Role Status Dates Darin Montoya , STUDENT SERVICES COUNSELOR-BC Primary Care Provider Active Christiano Phelps DO Emergency Provider Active Shubham Ding MD Admit Provider, Attending Provider Active Team Status: Inactive Member Role Status Dates Darin Montoya , STUDENT SERVICES COUNSELOR-BC Primary Care Provider Active Shubham Ding MD Admit Provider, Attending Provider Active Team Status: Active Member Role Status Dates Darin Montoya , STUDENT SERVICES COUNSELOR-BC Primary Care Provider Active Tana Ca MD Attending Provider Active Electrical Test Technician Relationship Specialty Start Date End Date Erum Laboy DDS [address] [place], [place] [phone] Fellow Dentistry 06/16/22 Cherise Ramirez DMD, MD [address] [place] [address] Physician Oral & Maxillofacial Surgery 06/16/22 Electrical Test Technician Relationship Specialty Start Date End Date Erum Laboy DDS [address] [place] [phone] Fellow Dentistry 06/16/22 Cherise Ramirez DMD, MD [address] [place] [phone] Physician Oral & Maxillofacial Surgery 06/16/22 Electrical Test Technician Relationship Specialty Start Date End Date Erum Laboy AUGUSTUS [address] [place] [address] Fellow Dentistry 06/16/22 Cherise Ramirez DMD, MD [address] [place] [address] Physician Oral & Maxillofacial Surgery 06/16/22 Alfonzo Mccord DDS [address] [place] [address] Fellow Dentistry 10/20/22 Electrical Test Technician Relationship Specialty Start Date End Date Erum Laboy DDS [address] [place] [phone] Fellow Dentistry 06/16/22 Cherise Ramirez DMD, MD [address] [place] [address] Physician Oral & Maxillofacial Surgery 06/16/22 Alfonzo Mccord DDS [address] [place] [address] Fellow Dentistry 10/20/22 Electrical Test Technician Relationship Specialty Start Date End Date Erum Laboy DDS [address] [place] [address] Fellow Dentistry 06/16/22 Cherise Ramirez DMD, MD [address] [place] [address] 1947[address] Physician Oral & Maxillofacial Surgery 06/16/22 Alfonzo Mccord DDS [address] [place] [address] Fellow Dentistry 10/20/22 Electrical Test Technician Relationship Specialty Start Date End Date Erum Laboy DDS [address] [place] [phone] Fellow Dentistry 06/16/22 Cherise Ramirez DMD, MD [address] [place] [address] Physician Oral & Maxillofacial Surgery 06/16/22 Alfonzo Mccord DDS [address] [place] [phone] Fellow Dentistry 10/20/22 Electrical Test Technician Relationship Specialty Start Date End Date Rosalind Hawley DO [address] [phone] Referring Physician Neurology 06/03/23 Keena Alvarez MD [address] [place], [place] [phone] Primary Care Provider Family Medicine 11/15/23 Electrical Test Technician Relationship Specialty Start Date End Date Rosalind Hawley DO [address] [place] [phone] Referring Physician Neurology 06/03/23 Keena Alvarez MD [address] [place] [address] Primary Care Provider Family Medicine 11/15/23 Electrical Test Technician Relationship Specialty Start Date End Date Keena Alvarez MD [address] [place] [phone] Primary Care Provider Family Medicine 11/15/23 Electrical Test Technician Relationship Specialty Start Date End Date Keena Alvarez MD [address] [place] [phone] Primary Care Provider Family Medicine 11/15/23 Electrical Test Technician Relationship Specialty Start Date End Date Keena Alvarez MD [address] [place] [address] Primary Care Provider Family Medicine 11/15/23 Kimmie Luz NP [address] Nurse Practitioner Neurology 01/13/24 Rosalind Hawley DO [address] [address] Referring Physician Neurology 01/13/24 Electrical Test Technician Relationship Specialty Start Date End Date Keena Alvarez MD [address] [place] [address] Primary Care Provider Family Medicine 11/15/23 Kimmie Luz NP [address] Nurse Practitioner Neurology 01/13/24 Rosalind Hawley DO [address] [place] [address] Referring Physician Neurology 01/13/24 Electrical Test Technician Relationship Specialty Start Date End Date Erum Laboy, AUGUSTUS [address] [place], [place] [phone] Fellow Dentistry 06/16/22 Cherise Ramirez DMD, MD [address] [place] [address] [phone] Physician Oral & Maxillofacial Surgery 06/16/22 Alfonzo Mccord DDS [address] [place], [place] [phone] Fellow Dentistry 10/20/22 Electrical Test Technician Relationship Specialty Start Date End Date Rosalind Hawley DO [address] [phone] Referring Physician Neurology 06/03/23 Keena Alvarez MD [address] [place] [address] Primary Care Provider Family Medicine 11/15/23 Electrical Test Technician Relationship Specialty Start Date End Date Keena Alvarez MD [address] [place] [address] Primary Care Provider Family Medicine 11/15/23 Kimmie Luz NP [address] Nurse Practitioner Neurology 01/13/24 Rosalind Hawley DO [address] [address] Referring Physician Neurology 01/13/24 Electrical Test Technician Relationship Specialty Start Date End Date Keena Alvarez MD [address] [place] [address] Primary Care Provider Family Medicine 11/15/23 Kimmie Luz NP [address] Nurse Practitioner Neurology 01/13/24 Rosalind Hawley DO [address] [place] [address] Referring Physician Neurology 01/13/24 Electrical Test Technician Relationship Specialty Start Date End Date Keena Alvarez MD [facility] [place] [address] Primary Care Provider Family Medicine 11/15/23 Kimmie Luz, MANISHA [address] [facility] [place], [place] Nurse Practitioner Neurology 01/13/24 Rosalind Hawley DO [address] [place] [address] Referring Physician Neurology 01/13/24 Electrical Test Technician Relationship Specialty Start Date End Date Keena Avlarez MD [address] [place] [address], [place] [address] Primary Care Provider Family Medicine 11/15/23 Kimmie Luz, MANISHA [address] [address] [place], [place] Nurse Practitioner Neurology 01/13/24 Rosalind Hawley DO [address] [place] [address] Referring Physician Neurology 01/13/24 Electrical Test Technician Relationship Specialty Start Date End Date Rosalind Hawley DO [address] [place] [address] Referring Physician Neurology 06/03/23 Electrical Test Technician Relationship Specialty Start Date End Date Rosalind Hawley DO [address] [place] [address] Referring Physician Neurology 06/03/23 Electrical Test Technician Relationship Specialty Start Date End Date Rosalind Hawley [address] [place] [address] Referring Physician Neurology 06/03/23 Keena Alvarez MD [address] [place] [address] Primary Care Provider Family Medicine 11/15/23 Electrical Test Technician Relationship Specialty Start Date End Date Richmond Hawleymaribel [address] [place] [address] Referring Physician Neurology 06/03/23 Electrical Test Technician Relationship Specialty Start Date End Date Rosalind Hawley DO [address] [place] [address] Referring Physician Neurology 06/03/23 Keena Alvarez MD [address] [place] [address] Primary Care Provider Family Medicine 11/15/23 Electrical Test Technician Relationship Specialty Start Date End Date Richmond Hawleymarible [address] [place] [address] Referring Physician Neurology 06/03/23 Keena Alvarez MD [address] [place] [address], [place] [address] Primary Care Provider Family Medicine 11/15/23 Electrical Test Technician Relationship Specialty Start Date End Date Rosalind Hawley DO [address] [place] [address] Referring Physician Neurology 06/03/23 Keena Alvarez MD [address] [place] [address], [place] [address] Primary Care Provider Family Medicine 11/15/23 Electrical Test Technician Relationship Specialty Start Date End Date Rosalind Hawley DO [address] [place] [address] Referring Physician Neurology 06/03/23 Keena Alvarez MD [address] [place] [address] Primary Care Provider Family Medicine 11/15/23 Electrical Test Technician Relationship Specialty Start Date End Date Keena Alvarez MD [address] [place], [place] [phone] Primary Care Provider Family Medicine 11/15/23 Kimmie Luz NP [address] [place] [address] Nurse Practitioner Neurology 01/13/24 Rosalind Hawley DO [address] [phone] Referring Physician Neurology 01/13/24 Electrical Test Technician Relationship Specialty Start Date End Date Erum Laboy DDS [address] [place] [address] Fellow Dentistry 06/16/22 Cherise Ramirez DMD, MD [address] [place] [address] Physician Oral & Maxillofacial Surgery 06/16/22 Alfonzo Mccord DDS [address] [place] [address] Fellow Dentistry 10/20/22 Electrical Test Technician Relationship Specialty Start Date End Date Keena Alvarez MD [facility] [place] [address], [place] [address] Primary Care Provider Family Medicine 11/15/23 Kimmie Luz NP [address] Nurse Practitioner Neurology 01/13/24 Rosalind Hawley DO [address] [place] [address] Referring Physician Neurology 01/13/24 Electrical Test Technician Relationship Specialty Start Date End Date Keena Alvarez MD [address] [place] [address], [place] [address] Primary Care Provider Family Medicine 11/15/23 Kimmie Luz NP [address] Nurse Practitioner Neurology 01/13/24 Rosalind Hawley DO [address] [place] [address] Referring Physician Neurology 01/13/24 Electrical Test Technician Relationship Specialty Start Date End Date Keena Alvarez MD [address] [place] [address] Primary Care Provider Family Medicine 11/15/23 Kimmie Luz, MANISHA [address], [place] Nurse Practitioner Neurology 01/13/24 Rosalind Hawley DO [address] [place] [address] Referring Physician Neurology 01/13/24 Electrical Test Technician Relationship Specialty Start Date End Date Keena Alvarez MD [address] [place] [address] Primary Care Provider Family Medicine 11/15/23 Kimmie Luz NP [address] Nurse Practitioner Neurology 01/13/24 Rosalind Hawley DO [address] [address] Referring Physician Neurology 01/13/24 Electrical Test Technician Relationship Specialty Start Date End Date Justus Leggett PA [address] [place] [address] PCP - [facility] 03/18/24 Keena Alvarez MD [address] [place] [address] Primary Care Provider Family Medicine 11/15/23 Kimmie Luz NP [address] Nurse Practitioner Neurology 01/13/24 Rosalind Hawley DO [address] [address] Referring Physician Neurology 01/13/24 Electrical Test Technician Relationship Specialty Start Date End Date Justus Leggett PA [address] [place] [address] [facility] - [facility] 03/18/24 Keena Alvarez MD [address] [place] [address] Primary Care Provider Family Medicine 11/15/23 Kimmie Luz, MANISHA [address] Nurse Practitioner Neurology 01/13/24 Rosalind Hawley DO [address] [place] [address] Referring Physician Neurology 01/13/24 Electrical Test Technician Relationship Specialty Start Date End Date Jan Darin, MANAGER MASSAGE DEPARTMENT-METAL CONTROL COORDINATOR [address] [place] [address] PCP - General Primary Care 06/19/22 Electrical Test Technician Relationship Specialty Start Date End Date Justus Leggett PA [address] [place] [address] PCP - [facility] 03/18/24 Keena Alvarez MD [address] [place] [address] Primary Care Provider Family Medicine 11/15/23 Kimmie Luz NP [address] Nurse Practitioner Neurology 01/13/24 Rosalind Hawley DO [address] [facility] [address] Referring Physician Neurology 01/13/24 Electrical Test Technician Relationship Specialty Start Date End Date Justus Leggett PA [address] [place] [address] PCP - [facility] 03/18/24 Keena Alvarez MD [address] [place] [address] Primary Care Provider Family Medicine 11/15/23 Kimmie Luz NP [address] Nurse Practitioner Neurology 01/13/24 Rosalind Hawley DO [address] [place] [address] Referring Physician Neurology 01/13/24 Electrical Test Technician Relationship Specialty Start Date End Date Justus Leggett PA [address] [place] [address] [facility] - [facility] 03/18/24 Keena Alvarez MD [address] [place] [address] Primary Care Provider Family Medicine 11/15/23 Kimmie Luz NP [address] Nurse Practitioner Neurology 01/13/24 Rosalind Hawley DO [address] [place] [address] Referring Physician Neurology 01/13/24 Electrical Test Technician Relationship Specialty Start Date End Date Justus Leggett PA [address] [place] [address] [facility] - [facility] 03/18/24 Keena Alvarez MD [address] [place] [address] Primary Care Provider Family Medicine 11/15/23 Kimmie Luz NP [address] Nurse Practitioner Neurology 01/13/24 Rosalind Hawley DO [address] [place] [address] Referring Physician Neurology 01/13/24 Electrical Test Technician Relationship Specialty Start Date End Date Justus Leggett PA [address] [place] [address] PCP - [facility] 03/18/24 Keena Alvarez MD [address] [place] [address] Primary Care Provider Family Medicine 11/15/23 Kimmie Luz NP [address] Nurse Practitioner Neurology 01/13/24 Rosalind Hawley DO [address] [place] [address] Referring Physician Neurology 01/13/24 Electrical Test Technician Relationship Specialty Start Date End Date Justus Leggett PA [address] [place] [address] [facility] - [facility] 03/18/24 Keena Alvarez MD [address] [place] [address] Primary Care Provider Family Medicine 11/15/23 Kimmie Luz NP [address] Nurse Practitioner Neurology 01/13/24 Rosalind Hawley DO [address] [place] [address] Referring Physician Neurology 01/13/24 Electrical Test Technician Relationship Specialty Start Date End Date Justus Leggett PA [address] [place] [address] PCP - [facility] 03/18/24 Keena Alvarez MD [address] [place] [address], [place] [address] Primary Care Provider Family Medicine 11/15/23 Kimmie Luz NP [address] Nurse Practitioner Neurology 01/13/24 Rosalind Hawley DO [address] [place] [address] Referring Physician Neurology 01/13/24 Electrical Test Technician Relationship Specialty Start Date End Date Tai Dixon MD [address] [place] [address] Family Medicine 01/23/24 Electrical Test Technician Relationship Specialty Start Date End Date Justus Leggett PA [address] [place] [address] PCP - [facility] 03/18/24 Keena Alvarez MD [address] [place] [address] Primary Care Provider Family Medicine 11/15/23 Kimmie Luz NP [address] [place] [address] Nurse Practitioner Neurology 01/13/24 Rosalind Hawley DO [address] [place] [address] Referring Physician Neurology 01/13/24 Electrical Test Technician Relationship Specialty Start Date End Date Justus Leggett PA [address] [place] [address] [facility] - [facility] 03/18/24 Keena Alvarez MD [address] [place] [address], [place] [address] Primary Care Provider Family Medicine 11/15/23 Kimmie Luz NP [address] [place], [place] [address] Nurse Practitioner Neurology 01/13/24 Rosalind Hawley DO [address] [place] [address] Referring Physician Neurology 01/13/24 Electrical Test Technician Relationship Specialty Start Date End Date Justus Leggett PA [address] [place] [address] [facility] - [facility] 03/18/24 Keena Alvarez MD [address] [place] [address], [place] [address] Primary Care Provider Family Medicine 11/15/23 Kimmie Luz NP [address] [facility] [place], [place] Nurse Practitioner Neurology 01/13/24 Rosalind Hawley DO [address] [place] [address] Referring Physician Neurology 01/13/24 Electrical Test Technician Relationship Specialty Start Date End Date Justus Leggett PA [address] [place] [address] [facility] 03/18/24 Keena Alvarez MD [facility] [place] [address] Primary Care Provider Family Medicine 11/15/23 Kimmie Luz NP [address] [place] [address] Nurse Practitioner Neurology 01/13/24 Rosalind Hawley DO [address] [address] Referring Physician Neurology 01/13/24 Electrical Test Technician Relationship Specialty Start Date End Date Justus Leggett PA [address] [place] [address] [facility] - [facility] 03/18/24 Keena Alvarez MD [address] [place] [address] Primary Care Provider Family Medicine 11/15/23 Kimmie Luz NP [address] [place] [address] Nurse Practitioner Neurology 01/13/24 Rosalind Hawley DO [address] [facility] [place] [address] Referring Physician Neurology 01/13/24 Electrical Test Technician Relationship Specialty Start Date End Date Justus Leggett PA [address] [place] [address] PCP - [facility] 03/18/24 Keena Alvarez MD [address] [place] [address] Primary Care Provider Family Medicine 11/15/23 Kimmie Luz NP [address] Nurse Practitioner Neurology 01/13/24 Rosalind Hawley DO [address] [place] [address] Referring Physician Neurology 01/13/24 Electrical Test Technician Relationship Specialty Start Date End Date Justus Leggett PA [address] [place] [address] [facility] - [facility] 03/18/24 Keena Alvarez MD [address] [place] [address] Primary Care Provider Family Medicine 11/15/23 Kimmie Luz NP [address] Nurse Practitioner Neurology 01/13/24 Rosalind Hawley DO [address] [place] [address] Referring Physician Neurology 01/13/24 Electrical Test Technician Relationship Specialty Start Date End Date Justus Leggett PA [address] [place] [address] PCP - [facility] 03/18/24 Keena Alvarez MD [address] [place] [address] Primary Care Provider Family Medicine 11/15/23 Kimmie Luz NP [address] Nurse Practitioner Neurology 01/13/24 Rosalind Hawley DO [address] [address] Referring Physician Neurology 01/13/24 Electrical Test Technician Relationship Specialty Start Date End Date Justus Leggett PA [address] [place] [address] PCP - [facility] 03/18/24 Keena Alvarez MD [address] [place] [address] Primary Care Provider Family Medicine 11/15/23 Kimmie Luz NP [address] Nurse Practitioner Neurology 01/13/24 Rosalind Hawley DO [address] [address] Referring Physician Neurology 01/13/24 Electrical Test Technician Relationship Specialty Start Date End Date Justus Leggett PA [address] [place] [address] [facility] 03/18/24 Keena Alvarez MD [address] [place] [address] Primary Care Provider Family Medicine 11/15/23 Kimmie Luz NP [address] [place] [address] Nurse Practitioner Neurology 01/13/24 Rosalind Hawley DO [address] [place] [address] Referring Physician Neurology 01/13/24 Electrical Test Technician Relationship Specialty Start Date End Date Tai Dixon MD [address] [place] [address] Family Medicine 01/23/24 Electrical Test Technician Relationship Specialty Start Date End Date Justus Leggett PA [address] [place] [address] [facility] 03/18/24 Keena Alvarez MD [address] [place] [address] Primary Care Provider Family Medicine 11/15/23 Kimmie Luz NP [address] [place] [address] Nurse Practitioner Neurology 01/13/24 Rosalind Hawley DO [address] [place] [address] Referring Physician Neurology 01/13/24 Electrical Test Technician Relationship Specialty Start Date End Date Elizabeth Lucero Dental Student 07/28/24 Marilu Treadwell BDS Solution Developer Dentistry 07/28/24 Electrical Test Technician Relationship Specialty Start Date End Date Erum Laboy, DDS [address] [place] [address] Fellow Dentistry 06/16/22 Cherise Ramirez DMD, MD [address] [place] [address] [id number] Physician Oral & Maxillofacial Surgery 06/16/22 Alfonzo Mccord DDS [address] [place], [place] [phone] Fellow Dentistry 10/20/22 Electrical Test Technician Relationship Specialty Start Date End Date Elizabeth Lucero Dental Student 07/28/24 Marilu Treadwell BDS Solution Developer Dentistry 07/28/24 Electrical Test Technician Relationship Specialty Start Date End Date Justus Leggett PA [address] [place] [address] [place] [address] PCP - [facility] 03/18/24 Keena Alvarez MD [address] [place], [place] [phone] Primary Care Provider Family Medicine 11/15/23 Kimmie Luz NP [address] [place], [place] [address] Nurse Practitioner Neurology 01/13/24 Rosalind Hawley DO [address] [place] [id number] Referring Physician Neurology 01/13/24 (unrecognized sect ion and content) No Status Records FoundNo Status Records FoundNo Status Records FoundNo Status Records FoundNo Status Records FoundNo Status Records FoundNo Status Records Found INFORMATION SOURCE (unrecogn ized section and content) DATE CREATED AUTHOR 04/23/2022 [facility] DATE CREATED AUTHOR AUTHOR'S ORGANIZ ATION 06/15/2022 [facility] DATE CREATED AUTHOR AUTHOR'S ORGANIZ ATION 07/21/2022 [facility] DATE CREATED AUTHOR AUTHOR'S ORGANIZ ATION 08/18/2023 [facility] DATE CREATED AUTHOR AUTHOR'S ORGANIZ ATION 12/24/2023 [facility] DATE CREATED AUTHOR AUTHOR'S ORGANIZ ATION 06/20/2024 [facility] DATE CREATED AUTHOR AUTHOR'S ORGANIZ ATION 08/01/2024 [facility] EPIC DATE CREATED AUTHOR AUTHOR'S ORGANIZ ATION 10/18/2024 [facility] Reason for Visit (unrecogniz ed section and content) Specialty Diagnoses / Procedures Referred By Clint franks Referred To Contact Oral Surgery Diagnoses Dental caries Vi Samuel, DDS [address] [place] [address] [facility] [address] [place] [address] Referral ID Status Reason Start Date Expiration Date V isits Requested Visits Authorized [id number] Authorized 04/12/2022 04/12/2023 3 3 Reason Onset [...] a reassess on 01/07 w/ Kurtis Laurent, PT. Reason Comments Neck Pain Reason Onset Date Comments [place] Prior Auth 02/19/2024 Specialty Diagnoses / Procedures Referred By Clint franks Referred To Contact Physical Therapy Diagnoses Rotator cuff impingement syndrome of right shoulder Shoulder joint hypermobility Procedures NE OFFICE/OUTPATIENT NEW HIGH MDM 60 MINUTES Justus Leggett PA [address] [facility] [place] [address] Caty LaurentANIVAL cisse Referral ID Status Reason Start Date Expiration Date Visits Requested Visits Authorized [id number] Authorized Specialty Services Required 11/15/2023 05/13/2024 30 30 Reason Comments Pain Reason Comments Follow-up Reason Onset Date Comments [place] Pre auth 03/17/2024 Reason Onset Date Comments [...] provider; PT 10/08/2024 Reason Comments No Show Reason Onset Date Comments re: CX of PT eval 10/28/24 11/10/2024 Source Comments (unrecognize d section and content) In the event this informatio n is protected by the Federal Confidentiality of Alcohol and Drug Abuse Patient Records regulations: The Federal rules restrict any use of the information to criminally investigate or prosecute any alcohol or drug abuse patient.[facility] the event this information is protected by the Federal Confidentiality of Alcohol and Drug Abuse Patient Records regulations: The Federal rules restrict any use of the information to criminally investigate or prosecute any alcohol or drug abuse patient.[facility] the event this information is protected by the Federal Confidentiality of Alcohol and Drug Abuse Patient Records regulations: The Federal rules restrict any use of the information to criminally investigate or prosecute any alcohol or drug abuse patient.[facility] FOR RECORDS PERTAINING TO PATIENTS WHO ARE [...] BE BASED ON THE PRIMARY CLINICAL RECORDS. [employer] [facility]. provides no warranty or guarantee of the accuracy or completeness of information in this document.
== END 2024-11-26 11:43 | disposition home or self-care (01) ==
LOC: RAD 11:42
PROVIDERS: PCP Nurse Practitioner Family; Visit Provider Physician Assistant
DX: M25.511 Pain in right shoulder (principal)
CPT/HCPCS: 73030